=== PATIENT | male | born 1945 | race Caucasian/White ===

== ENCOUNTER 2025-03-01 14:43 | Emergency (ER) | payer MEDICARE, SELFPAY ==
[2025-03-01 14:43] VITALS: BP 144/69; PULSE 69; TEMP 36.5; O2SAT 96; BMI 26.4
--- NOTE | 2025-03-01 15:34 | ED.GENADUL1 ---
Documented by User: Luli Maren 03/01/25 16:09 HPI HPI - General Adult General Chief complaint: Urogenital-Male Stated complaint: OTHER Time Seen by Provider: 03/01/25 14:53 Source: patient Mode of arrival: ambulance History of Present Illness HPI narrative: 79-year-old male was sent to the emergency room by squad from [facility]. Patient had a Pizano catheter removed from report last evening. Patient has been able to urinate but has been passing some clots. There was a standing placed to replace the Pizano catheter if necessary. Staff members called the doctor to have a place and they told him to come to the emergency room if he was peeing blood. Upon arrival to the emergency room patient had a ultrasound the bladder showed about 425 cc. He states he does feel full but he has been able to pee urinate small amounts with small amount of clotting per his history. Related Data Allergies Allergy/AdvReac Type Severity Reaction Status Date / Time No Known Drug Allergies Allergy Verified 03/01/25 14:48 Opioid HPI Opioid Management Most Recent Opioid Data: No Data to Display Review of Systems ROS Narrative All Systems are negative except as noted/marked.All systems reviewed and otherwise negative PFSH PFSH Social History Little interest or pleasure in doing things: not at all Feeling down, depressed, or hopeless: not at all Exam Narrative Exam Narrative: Nurses note and vital signs reviewed and patient is not hypoxic. General: The patient appears well and in no apparent distress. Patient is resting comfortably on cart. Skin: Warm, dry, no pallor noted. There is no rash noted. Head: Normocephalic, atraumatic Eye: Normal conjunctiva, no drainage, EOMI. PERRL Ears, Nose, Mouth, and Throat: oral mucosa is moist. Nares patent. Mouth without vesicles. Ear canals patent. Tm's without Erythema Cardiovascular: Regular Rate and Rhythm Respiratory: Patient is in no distress, no accessory muscle use, lungs are clear to auscultation, no wheezing, rales or rhonchi Back: non-tender, no CVA tenderness bilaterally to percussion. GI: Normal bowel sounds, no tenderness to palpation, no masses appreciated. No rebound, guarding, or rigidity noted. Musculoskeletal: The patient has no evidence of calf tenderness, no pitting edema, symmetrical pulses noted bilaterally Neurological: A&O x4, normal speech Psychiatric: Cooperative Constitutional Vital Signs, click to edit/add: Last Vital Signs Temp 97.7 F 03/01/25 14:43 Pulse 69 03/01/25 14:43 Resp 18 03/01/25 14:43 BP 138/62 03/01/25 18:14 Pulse Ox 96 03/01/25 14:43 O2 Del Method Room Air 03/01/25 14:43 Course Vital Signs Vital signs: Vital Signs Temperature 97.7 F 03/01/25 14:43 Pulse Rate 69 03/01/25 14:43 Respiratory Rate 18 03/01/25 14:43 Blood Pressure 144/69 H 03/01/25 14:43 Pulse Oximetry 96 03/01/25 14:43 Oxygen Delivery Method Room Air 03/01/25 14:43 Temperature 97.7 F 03/01/25 14:43 Pulse Rate 69 03/01/25 14:43 Respiratory Rate 18 03/01/25 14:43 Blood Pressure 138/62 03/01/25 18:14 Pulse Oximetry 96 03/01/25 14:43 Oxygen Delivery Method Room Air 03/01/25 14:43 Medical Decision Making MDM Narrative Medical decision making narrative: 79-year-old male was sent to the emergency room by shreyas from [facility]. Patient had a Pizano catheter removed from report last evening. Patient has been able to urinate but has been passing some clots. There was a standing placed to replace the Pizano catheter if necessary. Staff members called the doctor to have a place and they told him to come to the emergency room if he was peeing blood. Upon arrival to the emergency room patient had a ultrasound the bladder showed about 425 cc. He states he does feel full but he has been able to pee urinate small amounts with small amount of clotting per his history. Emergency room, patient had 420+ cc of urine in his bladder. Pizano catheter was replaced. It has been flushed and clearing. Urine was read reviewed and shows no acute infection. Patient is stable to be discharged back to [facility] with diagnosis of urinary retention. Patient feels good he has no pain. Differential Diagnosis Differential Diagnosis: uti, urinary retention Medical Records Medical records reviewed: Yes I reviewed the patient's medical records Lab Data Lab results reviewed: Yes I reviewed the patient's lab results Labs: Lab Results 03/01/25 Range/Units 15:30 Urine Color Yellow (YELLOW) Urine Clarity Sl cloudy (CLEAR) Urine pH 6.5 (5.0-9.0) Ur Specific [place] 1.020 (1.005-1.025) Urine Protein Negative (NEG/TRACE) mg/dL Urine Glucose (UA) Negative (NEGATIVE) mg/dL Urine Ketones Negative (NEGATIVE) mg/dL Urine Occult Blood Large A (NEGATIVE) Urine Nitrite Negative (NEGATIVE) Urine Bilirubin Negative (NEGATIVE) Urine Urobilinogen 2.0 A (0.2-1.0) EU/dL Ur Leukocyte Esterase Negative (NEGATIVE) Urine RBC 50-75 A (0-2) #/HPF Urine WBC 2-5 A (NONE SEEN) #/HPF Ur Squamous Epith Cells Rare (NONE/RARE) #/LPF Urine Crystals None seen (None Seen) #/HPF Urine Bacteria Trace A (NONE SEEN) #/HPF Urine Casts None seen (NONE SEEN) #/LPF Urine Mucus None seen (NONE SEEN) Ur Culture Indicated? No Discharge Plan Discharge Chief Complaint: Urogenital-Male Clinical Impression: H/O urinary retention, Acute on chronic urinary retention, Hematuria Patient Disposition: Home, Self-Care Time of Disposition Decision: 16:05 Condition: Good Mode of Transportation: EMS Print Language: Nicaraguan Instructions: Urinary Retention in Men (ED) Referrals: GRICEL COPE DO [Primary Care Provider] - 1 week Discharge Date/Time: 03/01/25 19:12 Documented by User: Karlo Gr MD 03/01/25 19:57 HPI HPI - General Adult General Chief complaint: Urogenital-Male Stated complaint: OTHER Time Seen by Provider: 03/01/25 14:53 Related Data Allergies Allergy/AdvReac Type Severity Reaction Status Date / Time No Known Drug Allergies Allergy Verified 03/01/25 14:48 Opioid HPI Opioid Management Most Recent Opioid Data: No Data to Display PFSH PFSH Social History Little interest or pleasure in doing things: not at all Feeling down, depressed, or hopeless: not at all Exam Constitutional Vital Signs, click to edit/add: Last Vital Signs Temp 97.7 F 03/01/25 14:43 Pulse 69 03/01/25 14:43 Resp 18 03/01/25 14:43 BP 138/62 03/01/25 18:14 Pulse Ox 96 03/01/25 14:43 O2 Del Method Room Air 03/01/25 14:43 Course Vital Signs Vital signs: Vital Signs Temperature 97.7 F 03/01/25 14:43 Pulse Rate 69 03/01/25 14:43 Respiratory Rate 18 03/01/25 14:43 Blood Pressure 144/69 H 03/01/25 14:43 Pulse Oximetry 96 03/01/25 14:43 Oxygen Delivery Method Room Air 03/01/25 14:43 Temperature 97.7 F 03/01/25 14:43 Pulse Rate 69 03/01/25 14:43 Respiratory Rate 18 03/01/25 14:43 Blood Pressure 138/62 03/01/25 18:14 Pulse Oximetry 96 03/01/25 14:43 Oxygen Delivery Method Room Air 03/01/25 14:43 Medical Decision Making MDM Narrative Medical decision making narrative: 79-year-old male was sent to the emergency room by shreyas from [facility]. Patient had a Pizano catheter removed from report last evening. Patient has been able to urinate but has been passing some clots. There was a standing placed to replace the Pizano catheter if necessary. Staff members called the doctor to have a place and they told him to come to the emergency room if he was peeing blood. Upon arrival to the emergency room patient had a ultrasound the bladder showed about 425 cc. He states he does feel full but he has been able to pee urinate small amounts with small amount of clotting per his history. Emergency room, patient had 420+ cc of urine in his bladder. Pizano catheter was replaced. It has been flushed and clearing. Urine was read reviewed and shows no acute infection. Patient is stable to be discharged back to [facility] with diagnosis of urinary retention. Patient feels good he has no pain. I, Dr Gr, have reviewed the above progress note and course of action in the ER; agree with the above. I have personally gone over history and physical, and discussed disposition and treatment plan with the PA. Lab Data Labs: Lab Results 03/01/25 Range/Units 15:30 Urine Color Yellow (YELLOW) Urine Clarity Sl cloudy (CLEAR) Urine pH 6.5 (5.0-9.0) Ur Specific [place] 1.020 (1.005-1.025) Urine Protein Negative (NEG/TRACE) mg/dL Urine Glucose (UA) Negative (NEGATIVE) mg/dL Urine Ketones Negative (NEGATIVE) mg/dL Urine Occult Blood Large A (NEGATIVE) Urine Nitrite Negative (NEGATIVE) Urine Bilirubin Negative (NEGATIVE) Urine Urobilinogen 2.0 A (0.2-1.0) EU/dL Ur Leukocyte Esterase Negative (NEGATIVE) Urine RBC 50-75 A (0-2) #/HPF Urine WBC 2-5 A (NONE SEEN) #/HPF Ur Squamous Epith Cells Rare (NONE/RARE) #/LPF Urine Crystals None seen (None Seen) #/HPF Urine Bacteria Trace A (NONE SEEN) #/HPF Urine Casts None seen (NONE SEEN) #/LPF Urine Mucus None seen (NONE SEEN) Ur Culture Indicated? No Discharge Plan Discharge Chief Complaint: Urogenital-Male Clinical Impression: H/O urinary retention, Acute on chronic urinary retention, Hematuria Patient Disposition: Home, Self-Care Time of Disposition Decision: 16:05 Condition: Good Mode of Transportation: EMS Print Language: Nicaraguan Instructions: Urinary Retention in Men (ED) Referrals: GRICEL COPE DO [Primary Care Provider] - 1 week Discharge Date/Time: 03/01/25 19:12
[2025-03-01 15:59] LABS: Bilirubin Urine NEGATIVE (NEGATIVE); Blood Urine LARGE (NEGATIVE); Clarity Urine SL CLOUDY (CLEAR); Color Urine YELLOW (YELLOW); Glucose Urine UA NEGATIVE (NEGATIVE); Ketones Urine NEGATIVE (NEGATIVE); Leukocyte Esterase Urine NEGATIVE (NEGATIVE); Nitrite Urine NEGATIVE (NEGATIVE); Protein Urine NEGATIVE (NEG/TRACE); pH Urine 6.5 (5.0-9.0)
[2025-03-01 16:05] VITALS: BP 145/63
[2025-03-01 16:12] LABS: Bacteria Urine TRACE #/HPF (NONE SEEN); RBC Urine 50-75 #/HPF (0-2)
[2025-03-01 16:13] LABS: Cast Seen? NONE SEEN #/LPF (NONE SEEN); Crystals Seen? None Seen #/HPF (None Seen); Mucus Urine NONE SEEN (NONE SEEN); Squamous Epithelial Cell Urine RARE #/LPF (NONE/RARE)
[2025-03-01 16:14] LABS: Urine Culture Indicated NO
[2025-03-01 18:14] VITALS: BP 138/62
== END 2025-03-01 19:12 | disposition home or self-care (01) ==
PROVIDERS: Physician Assistant; Emergency Provider Emergency Medicine; PCP Family Medicine
DX: R33.9 Retention of urine, unspecified (principal); R31.9 Hematuria, unspecified
CPT/HCPCS: 81001; 87086; 99283

== ENCOUNTER 2025-09-11 13:05 | Inpatient (IN) | payer MEDICARE, SELFPAY ==
[2025-09-11 13:08] VITALS: BP 152/76; PULSE 91; TEMP 37.4; O2SAT 93; BMI 27.1
--- NOTE | 2025-09-11 13:13 | XR_ITS ---
The [address] [address] Patient Name: BAILEE TRAORE MRN: [id number] date: 1945 Sex: M Assigned Patient Location: ER Current Patient Location: ED.MAIN Accession/Order Number: [id number] Exam Date: 09/11/2025 13:43 Report Date: 09/11/2025 16:08 At the request of: SUSANNA MCQUEEN MD Procedure: XR hip LT 2V w/ pelvis Single view pelvis and 2 views left hip INDICATION: Fall, left hip pain FINDINGS: There is a mildly comminuted intertrochanteric size subtrochanteric hip fracture with foreshortening and 90 degrees of angulation.. Prior internal fixation right hip with rubi and screw partially visualized. Hsas-ba-rtytzyan degenerative changes both hips and sacral joints. Remainder pelvis intact. No dislocation. XR/XR hip LT 2V w/ pelvis IMPRESSION: Mild comminuted left intertrochanteric versus subtrochanteric hip fracture with angulation. Impression dictated by: Christiano Salinas M.D. 09/11/2025 4:08 PM Dictation Location: [place] [address] Electronically authenticated by: [id number] Y Date: 09/11/2025 16:08
--- NOTE | 2025-09-11 13:13 | ED.FALL1 ---
HPI HPI - Fall General Chief Complaint: Fall Stated Complaint: FALL Time Seen by Provider: 09/11/25 13:13 Source: patient Mode of arrival: ambulance Limitations: no limitations History of Present Illness HPI Narrative: Patient is 80 years old male with history of hypertension hyperlipidemia and history of seizure disorder, by the EMS to the ER after he tripped and fell in the [place]. Patient did not lose consciousness he was awake the whole time but he think he hit his head on the left side when tripped Patient presents to us with a deformity of the left hip with shortened left leg and pain with movement Related Data Home Medications ?Medication ?Instructions ?Recorded ?Confirmed acetaminophen 500 mg tablet 1,000 mg PO Q8H PRN fever or pain 09/11/25 09/11/25 (Tylenol Extra Strength) albuterol sulfate 2.5 mg/3 mL 1.25 mg inhalation QID PRN 09/11/25 09/11/25 (0.083 %) solution for nebulization shortness of breath or wheezing ammonium lactate 12 % lotion 1 applic topical TID PRN dry skin 09/11/25 09/11/25 aspirin 81 mg chewable tablet 81 mg PO DAILY 09/11/25 09/11/25 atorvastatin 80 mg tablet 80 mg PO DAILY 09/11/25 09/11/25 budesonide-formoterol HFA 160 2 inh inhalation Q12H 09/11/25 09/11/25 mcg-4.5 mcg/actuation aerosol inhaler (Symbicort) bupropion HCl 150 mg 24 hr tablet, 150 mg PO DAILY 09/11/25 09/11/25 extended release dextromethorphan-guaifenesin 10 10 ml PO Q6H PRN cough 09/11/25 09/11/25 mg-100 mg/5 mL oral syrup (Antitussive DM) escitalopram oxalate 10 mg tablet 10 mg PO DAILY 09/11/25 09/11/25 fluticasone 232 mcg-salmeterol 14 1 inh inhalation Q12H 09/11/25 09/11/25 mcg/actuation breath activated powdr ipratropium 0.5 mg-albuterol 3 mg 3 ml inhalation Q8H 09/11/25 09/11/25 (2.5 mg base)/3 mL nebulization soln levetiracetam 1,000 mg tablet 1,000 mg PO Q12H 09/11/25 09/11/25 levothyroxine 100 mcg tablet 100 mcg PO DAILY 09/11/25 09/11/25 lisinopril 20 mg tablet 20 mg PO DAILY 09/11/25 09/11/25 metoprolol succinate 50 mg 50 mg PO DAILY 09/11/25 09/11/25 tablet,extended release 24 hr ondansetron 4 mg disintegrating 4 mg translingual Q6H PRN nausea 09/11/25 09/11/25 tablet and vomiting pantoprazole 40 mg tablet,delayed 40 mg PO DAILY 09/11/25 09/11/25 release polyethylene glycol 3350 17 gram 17 g PO DAILY 09/11/25 09/11/25 oral powder packet (Miralax) tamsulosin 0.4 mg capsule 0.4 mg PO Q24H 09/11/25 09/11/25 Allergies Allergy/AdvReac Type Severity Reaction Status Date / Time No Known Drug Allergies Allergy Verified 09/11/25 13:08 Opioid HPI Opioid Management Most Recent Pain and Opioid Data: Last Pain Scale 7 Today, 13:08 Review of Systems ROS Status of ROS 10 or more systems reviewed and unremarkable except as noted in history and below [facility] Medical History (Updated 09/11/25 @ 15:42 by Jennifer Senior MD) Other reduced mobility ?Z74.09 - Other reduced mobility (ICD-10) Edema, unspecified ?R60.9 - Edema, unspecified (ICD-10) Disorder of the skin and subcutaneous tissue, unspecified ?L98.9 - Disorder of the skin and subcutaneous tissue, unspecified (ICD-10) Unspecified convulsions ?R56.9 - Unspecified convulsions (ICD-10) Disorientation, unspecified ?R41.0 - Disorientation, unspecified (ICD-10) Weakness ?R53.1 - Weakness (ICD-10) Retention of urine, unspecified ?R33.9 - Retention of urine, unspecified (ICD-10) Constipation ?K59.00 - Constipation, unspecified (ICD-10) GERD (gastroesophageal reflux disease) ?K21.9 - Gastro-esophageal reflux disease without esophagitis (ICD-10) Dysphagia ?R13.10 - Dysphagia, unspecified (ICD-10) Hypothyroid ?E03.9 - Hypothyroidism, unspecified (ICD-10) Hyperlipidemia ?E78.5 - Hyperlipidemia, unspecified (ICD-10) Unspecified atrial fibrillation ?I48.91 - Unspecified atrial fibrillation (ICD-10) 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 (ICD-10) Other seizures ?G40.89 - Other seizures (ICD-10) 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 ?I66.01 - 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 (ICD-10) Malignant neoplasm of frontal lobe ?C71.1 - Malignant neoplasm of frontal lobe (ICD-10) Encephalitis and encephalomyelitis, unspecified ?G04.90 - Encephalitis and encephalomyelitis, unspecified (ICD-10) Interstitial pulmonary disease, unspecified ?J84.9 - Interstitial pulmonary disease, unspecified (ICD-10) Disorder of brain, unspecified ?G93.9 - Disorder of brain, unspecified (ICD-10) Social History Little interest or pleasure in doing things: not at all Feeling down, depressed, or hopeless: not at all Exam Narrative Exam Narrative: Nurses notes and vital signs reviewed and patient is not hypoxic. Lower extremity: Obvious deformity to the left lower extremity with shortening compared to the right. There is tenderness upon palpation of the left hip and decrease of movement due to pain the patient have no vascular injury detected he had very good anterior tibial pulse General: Well-appearing and in no apparent distress. Skin: Warm, dry, no pallor noted. No rash. Head: Normocephalic, atraumatic. Neck: Supple, non-tender. Cardiovascular: Regular Rate and Rhythm without murmur, gallop or rub. Respiratory: No accessory muscle use or respiratory distress. Lungs are clear to auscultation, no wheezing, rales or rhonchi Chest Wall: no tenderness Back: No midline thoracic or lumbar vertebral tenderness. No CVA tenderness GI: Abdomen is soft, non-distended. Normal bowel sounds. No masses appreciated. No tenderness to palpation. No rebound, guarding, or rigidity noted. Neurological: A&O x4. No cranial nerve dysfunction observed. Constitutional Vital Signs, click to edit/add: Last Vital Signs Temp 99.4 F 09/11/25 13:08 Pulse 93 H 09/11/25 13:14 Resp 14 09/11/25 13:08 BP 152/76 H 09/11/25 13:08 Pulse Ox 93 L 09/11/25 13:08 O2 Del Method Room Air 09/11/25 13:08 Course Vital Signs Vital signs: Vital Signs Temperature 99.4 F 09/11/25 13:08 Pulse Rate 91 H 09/11/25 13:08 Respiratory Rate 14 09/11/25 13:08 Blood Pressure 152/76 H 09/11/25 13:08 Pulse Oximetry 93 L 09/11/25 13:08 Oxygen Delivery Method Room Air 09/11/25 13:08 Temperature 99.4 F 09/11/25 13:08 Pulse Rate 93 H 09/11/25 13:14 Respiratory Rate 14 09/11/25 13:08 Blood Pressure 152/76 H 09/11/25 13:08 Pulse Oximetry 93 L 09/11/25 13:08 Oxygen Delivery Method Room Air 09/11/25 13:08 MDM - Fall MDM Narrative Medical decision making narrative: CBC and chemistry showed no acute pathology CT of the head obtained as well as CT cervical due to the history of fall although there is no obvious signs of trauma But the patient is 80 years old with multiple risk factors X-ray of the left hip and pelvis showed that the patient have an obvious fracture to the femoral head Patient case discussed with , the patient can be admitted to our hospital for medical clearance with plan to do surgery tomorrow morning The patient case discussed with he is agreeable to admit the patient The patient will be planned to be admitted pending the results of the CAT scan of the head and cervical spine CT head as well as CT cervical spine both negative for any acute pathology Lab Data Labs: Lab Results 09/11/25 Range/Units 13:38 WBC 9.6 (4.0-11.0) 10^3/uL RBC 4.28 L (4.70-6.10) 10^6/uL Hgb 12.9 L (14.0-18.0) g/dL Hct 38.1 L (42.0-54.0) % MCV 89.0 (80.0-94.0) fL MCH 30.1 (25.9-34.0) pg MCHC 33.9 (29.9-35.2) g/dL RDW 13.5 (11.0-15.0) % Plt Count 189 (150-450) 10^3/uL MPV 9.0 L (9.5-13.5) fL Neut % (Auto) 80.8 H (43.0-75.0) % Lymph % (Auto) 9.0 L (20.5-60.0) % [place] % (Auto) 7.0 (1.7-12.0) % Eos % (Auto) 2.1 (0.9-7.0) % Baso % (Auto) 0.7 (0.2-2.0) % Neut # (Auto) 7.8 H (1.4-6.5) 10^3/uL Lymph # (Auto) 0.9 L (1.2-3.8) 10^3/uL [place] # (Auto) 0.7 (0.3-0.8) 10^3/uL Eos # (Auto) 0.2 (0.0-0.7) 10^3/uL Baso # (Auto) 0.1 (0.0-0.1) 10^3/uL Abs Immat Gran (auto) 0.04 H (0.00-0.03) 10^3/uL Imm/Tot Granulo (auto) 0.4 (0.0-0.5) % Sodium 132 L (136-145) mmol/L Potassium 4.4 (3.5-5.1) mmol/L Chloride 99 (98-107) mmol/L Carbon Dioxide 25.4 (21.0-32.0) mmol/L Anion Gap 12.0 BUN 14.0 (7.0-18.0) mg/dL Creatinine 0.87 (0.70-1.30) mg/dL Est GFR ( Amer) >60 (>=60 mL/min/1.73m^2) Est GFR (Non-Af Amer) >60 (>=60 mL/min/1.73m^2) BUN/Creatinine Ratio 16.1 Glucose 113 H (74-106) mg/dL Calcium 8.7 (8.5-10.1) mg/dL Total Bilirubin 0.7 (0.2-1.0) mg/dL AST 26 (15-37) U/L ALT 30 (16-63) U/L Alkaline Phosphatase 127 H (46-116) U/L Total Protein 7.7 (6.4-8.2) g/dL Albumin 3.3 L (3.4-5.0) g/dL Globulin 4.4 g/dL Albumin/Globulin Ratio 0.8 Discharge Plan Discharge Chief Complaint: Fall Clinical Impression: Closed fracture of left hip, Fall Patient Disposition: Admitted As Inpatient Time of Disposition Decision: 15:42
[2025-09-11 13:14] VITALS: PULSE 93
--- NOTE | 2025-09-11 13:14 | CT_ITS ---
The [place] [id number] Patient Name: BAILEE TRAORE MRN: [id number] date: 1945 Sex: M Assigned Patient Location: ER Current Patient Location: .MAIN Accession/Order Number: [id number] Exam Date: 09/11/2025 13:43 Report Date: 09/11/2025 16:13 At the request of: SUSANNA MCQUEEN MD Procedure: CT head/brain wo con CT BRAIN WITHOUT CONTRAST: CLINICAL HISTORY: fall COMPARISON: None TECHNIQUE: Contiguous axial unenhanced images were obtained through the brain. This CT exam was performed using one or more following dose reduction techniques: Automated exposure control, adjustment of the mA and/or kV according to patient size, or use of iterative reconstruction technique. FINDINGS: There is no evidence of midline shift, intra or extra-axial fluid collection, hemorrhage or CT evidence of acute large vascular distribution stroke.. Central involutional changes and chronic small ischemic disease. Cavum septum pellucidum variant identified. Otherwise moderate periventricular and subcortical hypoattenuation identified suggest of chronic small vessel ischemic disease. Intracranial vascular calcifications. Visualized intraorbital contents appear unremarkable. Osjz-cy-odogxhlo paranasal sinus mucosal thickening. Mastoids are clear. The surrounding soft tissues are normal. CT/CT head/brain wo con IMPRESSION: NO ACUTE INTRACRANIAL ABNORMALITY. 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 Impression dictated by: Christiano Salinas M.D. 09/11/2025 4:13 PM Dictation Location: [place] [address] Electronically authenticated by: [id number] Y Date: 09/11/2025 16:13
--- NOTE | 2025-09-11 13:14 | CT_ITS ---
The [address] [address] Patient Name: BAILEE TRAORE MRN: [id number] date: 1945 Sex: M Assigned Patient Location: ER Current Patient Location: [facility] Accession/Order Number: [id number] Exam Date: 09/11/2025 13:43 Report Date: 09/11/2025 16:15 At the request of: SUSANNA MCQUEEN MD Procedure: CT cervical spine wo con CT cervical spine wo con 09/11/2025 1:53 PM SIGN AND SYMPTOMS: Fall contusion to left side of head TECHNIQUE: Multi detector CT axial slices of the cervical spine were obtained without IV contrast. Volumetric acquisition sagittal, coronal, and 3-D reconstructions were performed and reviewed. CT was performed with one or more of the following dose reduction techniques: Automated exposure control, adjustment of the mA and/or kV according to patient size, or use of iterative reconstruction technique. COMPARISON: None. FINDINGS: There is preservation of the vertebral body heights. There is moderate disc height loss at C4-C5, C5-C6, and C6-C7 with mild scattered loss at C7-T1. No fractures or dislocations are seen. The alignment of the cervical spine is normal. The craniocervical is within normal limits. Degenerative changes are noted in the lateral axial joint. Facet hypertrophy is present throughout. The prevertebral soft tissues are within normal limits. The paraspinous soft tissues are within normal limits. The lung apices are unremarkable. Atherosclerotic changes are noted in the carotid bifurcations. CT/CT cervical spine wo con IMPRESSION: No fracture or dislocation. Degenerative changes are noted throughout the cervical spine as above. Impression dictated by: Emmanuel Grijalva M.D. 09/11/2025 4:15 PM Dictation Location: [place] [address] Electronically authenticated by: [id number] Y Date: 09/11/2025 16:15
--- OUTSIDE RECORDS SUMMARY | 2025-09-11 13:14 | XMS_ITS | Encounter Summary ---
Author Organization [facility] Address [id number] [place] [address] Care Team Providers Care [employer] Name Role Phone Unavailable Primary Care Provider Unavailabl e Encounter Details Date Type Department Care Team (Late st Contact Info) Description 01/26/2025 Orders Only [facility] [place] [address] External, Scanning Provider Pain (Primary Dx) Social History Tobacco Use Types Packs/Day Years Used Date Smoking Tobacco: Never Assessed Sex and Gender Information Value Date Recorded Sex Assigned at Not on file Legal Sex Male 10:02 AM EST Gender Identity Not on file Sexual Orientation Not on file documented as of this encounter Plan of Treatment Not on file documented as of this encounter Results * CT brain without contrast (01/26/2025 7:45 AM EST) us Scanning Provider External IMG CT ORDERABLES Fin al Result documented in this encounter Visit Diagnoses Diagnosis Pain- Primary Generalized pain documented in this encounter
--- OUTSIDE RECORDS SUMMARY | 2025-09-11 13:14 | XMS_ITS | Clinical Summary ---
Author Organization [facility] [employer] [facility] Sys [facility] Address [id number] [place] [address] Care Team Providers Care Precision Crop Manager Name Role Phone Unavailable Primary Care Provider Unavailabl e Social History Tobacco Use Types Packs/Day Years Used Date Smoking Tobacco: Never Assessed Sex and Gender Information Value Date Recorded Sex Assigned at Not on file Legal Sex Male 10:02 AM EST Gender Identity Not on file Sexual Orientation Not on file Plan of Treatment Health Maintenance Due Date Last Done Comments Depression Screening 1957 Tobacco Screening 1957 DTaP,Tdap and Td Vaccines (1 - Tdap) 1962 Zoster (Shingles) Vaccine (1 of 2) 1993 Fall Risk Screening 2008 Influenza Vaccine 07/29/2025 Medical Devices Not on file
--- OUTSIDE RECORDS SUMMARY | 2025-09-11 13:14 | XMS_ITS | Clinical Summary ---
Author Organization [facility] Address [address] [place], [place] [id number] Care Team Providers Care Boat Camp Operator Name Role Phone Unavailable Primary Care Provider Unavailabl e Allergies No known active allergies Medications No known medications Social History Tobacco Use Types Packs/Day Years Used Date Smoking Tobacco: Never Assessed Sex and Gender Information Value Date Recorded Sex Assigned at Not on file Legal Sex Male 9:51 AM EST Gender Identity Not on file Sexual Orientation Not on file Last Filed Vital Signs Vital Sign Reading Time Taken Comments Blood Pressure 141/84 03/14/2014 9:49 PM EDT Pulse 72 03/14/2014 9:49 PM EDT Temperature 36.6 C (97.9 F) 03/14/2014 9:49 PM EDT Respiratory Rate 20 03/14/2014 9:49 PM EDT Oxygen Saturation 100% 03/14/2014 9:49 PM EDT Inhaled Oxygen Concentration - - Weight 83.5 kg (184 lb) 03/14/2014 9:49 PM EDT Height 182.9 cm (6') 03/14/2014 9:49 PM EDT Body Mass Index 24.95 03/14/2014 9:49 PM EDT Plan of Treatment Health Maintenance Due Date Last Done Comments Anxiety Screening 1961 Depression Screening 1961 DTaP,Tdap,Td Vaccine (1 - Tdap) 1962 Pneumococcal Vaccine: 50+ (1 of 1 - PCV) 1993 Shingrix Vaccine (1 of 2) 1993 Diabetes Screening 03/14/2017 03/14/2014 RSV Vaccine (1 - 1-dose 75+ series) 2018 Advance Directive Discussion 11/28/2024 Covid-19 Vaccine (1 - 2024- season) 2025 Influenza Vaccine (#1) 2025 Procedures Procedure Name Priority Date/Time Associated Diagnosis Comments COMPREHENSIVE METABOLIC PANEL (EU,FV,HL,MIKA,MM,SP) STAT 03/14/2014 11:16 PM EDT from Last 3 Months or Most Recently Relevant to Health Maintenance Results * (ABNORMAL) COMPREHENSIVE METABOLIC PANEL (EU,FV,HL,LK,MIKA,MM,SP) (03/14/2014 11:16 PM EDT) Protein, Total 7.6 6.0 - 8.4 g/dL [facility] Albumin 4.5 3.5 - 5.0 g/dL [facility] Calcium 9.3 8.5 - 10.5 mg/dL [facility] Bilirubin, Total 0.4 0.0 - 1.5 mg/dL [facility] Alkaline Phosphatase 93 40 - 150 U/L [facility] AST 19 7 - 40 U/L [facility] Glucose 87 65 - 100 mg/dL [facility] BUN 14 8 - 25 mg/dL [facility] Creatinine 0.82 0.80 - 1.30 mg/dL [facility] Sodium 137 135 - 146 mmol/L [facility] Potassium 3.4(L) 3.5 - 5.0 mmol/L [facility] Chloride 101 98 - 107 mmol/L [facility] CO2 28 23 - 32 mmol/L [facility] ALT 9 5 - 50 U/L [facility] Glom Filtration Rate (AA) >60 >60 [facility] Glom Filtration Rate (BILLY) >60 >60 . [facility] Blood specimen (specimen) BLOOD SPECIMEN / Unknown 03/14/2014 11:16 PM EDT 03/14/2014 11:23 PM EDT us Antonio Mars MD [facility] Final Result [facility] [address] [place] [address] [facility] [address] [place] [address] [id number] from Last 3 Months or Most Recently Relevant to Health Maintenance
--- OUTSIDE RECORDS SUMMARY | 2025-09-11 13:14 | XMS_ITS | Patient Health Record ---
Author Organization [facility] Address [address] [place] [address] Care Team Providers Care Business Center Attendant Name Role Phone Edel Craig Primary Care Provider [phone] Reason For Referral No Information Immunizations Vaccine Route Administration Date Status Comme nts PFIZER IM Intramuscular 11/11/2021 Administered Plan Of Treatment No Information
--- OUTSIDE RECORDS SUMMARY | 2025-09-11 13:14 | XMS_ITS | Clinical Summary ---
Author Organization [facility] Address [address] [place] [address] Care Team Providers Care Cotton Dispatcher Name Role Phone Araceli Engel MD Primary Care Provider [phone] Allergies No known active allergies Medications aspirin 81 MG EC tablet Take 81 mg by mouth Daily Active atorvastatin (Lipitor) 80 MG tablet Take 80 mg by mouth Daily Active levETIRAcetam (Keppra) 1000 MG tablet Take 1,000 mg by mouth in the morning and 1,000 mg before bedtime. Active levothyroxine (Synthroid, Levoxyl) 50 MCG tablet Take 50 mcg by mouth in the morning. Take before meals. Active lisinopril 20 MG tablet Take 20 mg by mouth Daily Active metoprolol succinate XL (Toprol-XL) 50 MG 24 hr tablet Take 50 mg by mouth Daily Do not crush or chew. Active pantoprazole (ProtoNix) 40 MG EC tablet Take 40 mg by mouth in the morning. Take before meals. Do not crush, chew, or split. Active tamsulosin (Flomax) 0.4 MG 24 hr capsule Take 0.4 mg by mouth Daily Active polyethylene glycol, PEG, 3350 (Miralax) 17 g packet Take 17 g by mouth 1 (one) time Active Encounters Date Type Department Care Team Description 06/17/2025 Telephone [facility] [address] [place] [address] Elena Rosen LPN from Last 3 Months Social History Tobacco Use Types Packs/Day Years Used Date Smoking Tobacco: Never Assessed Sex and Gender Information Value Date Recorded Sex Assigned at Not on file Legal Sex Male 1:03 PM EST Gender Identity Not on file Sexual Orientation Not on file Last Filed Vital Signs Vital Sign Reading Time Taken Comments Blood Pressure 122/68 04/03/2025 10:34 AM EDT Pulse 73 04/03/2025 10:34 AM EDT Temperature - - Respiratory Rate - - Oxygen Saturation 94% 04/03/2025 10:34 AM EDT Inhaled Oxygen Concentration - - Weight 86.8 kg (191 lb 6.4 oz) 04/03/2025 10:34 AM EDT Height - - Body Mass Index - - Plan of Treatment Health Maintenance Due Date Last Done Comments Pneumococcal Vaccine: 65+ Ye ars (2 of 2 - PCV20 or PCV21) 11/06/2016 11/06/2015 Influenza Vaccine (#1) 2025 11/15/2024 Insurance [employer] MEDICARE COM[place]TE [place]ICAID [place] [facility] Care Teams Cotton Dispatcher Relationship Specialty Start Date End Date Araceli Engel MD [address] [place] [address] [place] [address], [place] [address] PCP - General Family Medicine 01/28/25
--- OUTSIDE RECORDS SUMMARY | 2025-09-11 13:16 | XMS_ITS | CCD ---
Author Organization [facility] CliniSyal Care Team Providers Care Wildlife Science Professor Name Role Phone ANAMARIA Jarvis Emergency Provider Maren ([facility])DO Charles Primary Care Provider Maren (Clinic) Lucille KLEIN Primary Care Provider Nikos Lao DO Emergency Provider Bennett Navarro MD Admit Provider Bennett Navarro MD Attending Provider [phone] Maren ([facility]) Lucille KLEIN Primary Care Provider Nikos Lao DO Emergency Provider Bennett Navarro MD Admit Provider Lady Parks DO Other Provider Mariela Solorzano MD Other Provider Omkar Louie MD Other Provider Romy Leon APRN Other Provider Vito Mullins DO Other Provider Oren Lara MD Other Provider [phone] Luly SAENZ, Kofi Mackey Attending Provider Omkar Louie MD Admit Provider Omkar Louie MD Attending Provider Dorita Mazariegos Other Provider Unavailable America PhD, Callum Other Provider Brandon Padron MD Other Provider Khurram Eugene DO M Other Provider Bia DO, Barotlome M Other Provider Brian YANES, Petrona M Other Provider [phone] Bernabe CREATIVE SERVICES COORDINATOR-C, Yesenia Ramey Other Provider Martinez MCKEEN-SPORTS DIRECTOR-C, Shona Angela Other Provider Kirit RN, Telma Other Provider Unavailable Loraine RN, Soraya Other Provider Unavailable Jere RN, Sandy Other Provider Unavailable Huong RN, Ksenia Other Provider Unavailable Max RN, Nivia Other Provider Unavailable Montserrat SAENZ, An Other Provider Mohamud Brown DO Other Provider Guerrero SAENZ, Boyd Other Provider West Adam DO Other Provider Esthela SAENZ, Roberto Other Provider [phone] Elba Sheppard MD Other Provider Bailee Carballo DO Other Provider Kev Urbina MD Other Provider Unavailable Jillian Mendez APRN Other Provider Shantelle Newton MD Other Provider Alberto Jacob MD Other Provider eBllo SAENZ, George Other Provider Unavailable Carli Small MD Other Provider Bailee Boggs DO Other Provider Olya Garcia MD Other Provider Ronan Michel MD Other Provider Иван CREATIVE SERVICES COORDINATOR-C, Luli Albert Other Provider Timothy YANES, Rosy Mackey Other Provider Unavailable Bennett Navarro MD Other Provider Merrill SAENZ, Nilesh Other Provider Gilles Gibbs MD Other Provider Hoda SAENZ, Tatyana Other Provider Unavailable Lizandro Corona MD Other Provider Rashmi Almanzar DO Other Provider JedNate mercado DO Other Provider Priscilla Rock APRN Other Provider John Nolan DO Other Provider Luly SAENZ, Kofi Mackey Other Provider [phone] Theresa Mireles APRN Other Provider Rin Kellogg APRN Other Provider Mary SAENZ, Geo Other Provider Puma Miller MD Other Provider Moravia Salomón KLEIN Other Provider Pernell Modi DO Other Provider Bernie SAENZ, Samuel Bryson Other Provider Dayna Garza MD Other Provider Petrona Murphy APRN Other Provider Yaya SAENZ, Jasiel Other Provider Faustino Payton MD Other Provider Omkar Wagner MD Other Provider Kev Pritchett MD Other Provider Alessio Pickering MD Other Provider Radha Juárez APRN Other Provider Jolie Benítez APRN Other Provider Nicolle RN, Esmer Other Provider Unavailable Mary SAENZ, Geo Other Provider Unavailable Petrona Murphy APRN Other Provider Unavailable Karlo Gr DO Attending Provider NON STAFF Primary Care Provider Unavailmaya Pearce MD, Jayme Cabrera Attending Provider JOVANNI ROGERS Attending Unavailable JOVANNI ROGERS Attending Unavailable JOVANNI ROGERS Attending Unavailable Puma Novak DO Primary Care Provider [phone] Martinez MCKEEN-SPORTS DIRECTOR-C, Shona Angela Attending Provider Jayme Pearce Admitting Kamla Pearce, Jayme Cabrera Attending Puma Esquivel Primary Care Unavailable Omkar Louie Attending Unavailable Omkar Louie Admitting Unavailable Kofi Mauricio Attending Unavailable Bennett Navarro Admitting Unavailab [place] Consulting Unavailable Maren (Clinic), Lucille [facility] UnavailMariela Kitchen Consulting Unavailable Omkar Louie Consulting Unavailable Romy Leon Consulting Unavailable Vito Mullins Jr Consulting UnavailOren Muhammad Consulting Unavaila Omkar Vance Attending Unavailable Maren (Clinic), [facility] UnavailOmkar Ly Admitting Unavailable Sciaraagustin Dorita Consulting Unavailable Callum Cross Consulting Unavailable Lady Parks Consulting Unavailable Brandon Padron Consulting Unavailable Khurram Eugene Consulting Unavailab Bartolome Villegas Consulting Unavailable Petrona Torres Consulting Unavailable Yesenia Kidd Consulting Unavailable Shona Henriquez Consulting Unavailable Telma Beth Consulting Unavailable Soraya Baron Consulting Unavailable Sandy Oquendo Consulting Unavailable Ksenia Borja Consulting Unavailable Nivia Santana Consulting Unavailable An Mariano Consulting Unavailable Mohamud Brown Consulting Unavailable Boyd Masters Consulting Unavailable West Adam Consulting UnavailRoberto Meeks Consulting Unavailable Elba Sheppard Consulting Unavailable Bailee Carballo Consulting Unavailable Kev Urbina Consulting Unavailable Jillian Mendez Consulting UnavailShantelle Bob Consulting Unavailable Alberto Jacob Consulting Unavailable George Monsalve Consulting Unavailable Carli Small Consulting Unavailable Bailee Boggs Consulting Unavailable Olya Garcia Consulting Unavailable Ronan Michel Consulting Unavailable Luli Oates Consulting Unavailable Rosy Aguirre Consulting Unavailable Bennett Navarro Consulting Unavailab Nilesh Kang Consulting Unavailable Gilles Gibbs Unavailable Tatyana Drummond Consulting Unavailable Lizandro Corona Consulting Unavailable Rashmi Almanzar Consulting Unavailable Nate Adkins Consulting Unavailable Priscilla Rock Consulting Unavailable John Nolan Consulting Unavailable Kofi Mauricio Consulting Unavailable Theresa Mireles Consulting Unavailable Rin Kellogg Consulting Unavailable Geo Hernandez Consulting Unavailable Puma Miller Consulting Unavailable Salomón Cox Consulting Unavailable Pernell Modi Consulting Unavailable Samuel Gibbs Consulting Unavailable Dayna Garza Consulting UnaPetrona Prince Consulting Unavailable Jasiel Javier Consulting Unavailable Faustino Payton Consulting Unavailable Omkar Wagner Consulting Unavailable Kev Pritchett Consulting Unavailable Alessio Pickering Consulting Unavailable Radha Juárez Consulting Unavailable Jolie Benítez Consulting UnavailEsmer Marie Consulting Unavailable Karlo Gr Attending Unavailable Karlo Gr Admitting Unavailable Medications Current Medications Medication Drug Class(es) Dates Sig (Normalized) Sig (Original) albuterol 0.833 mg/ml / ipratropium bromide 0.167 mg/ml inhalation solution (1 source) Anticholinergic, beta2-Adrenergic Agonist Start: 08-06-2025 Ipratropium-Albute rol 0.5 mg-3 mg(2.5 mg base)/3 mL solution for nebulization Active ML INHALATION August 06, 2025 12:00am Complies with drug therapy apixaban 5 mg oral tablet (6 sources) Factor Xa Inhibitor Start: 01-28-2025 take 1 tablet by mouth twice daily Apixaban (Eliquis) 5 mg Tablet Active 5 MG PO Twice daily 60 January 28, 2025 1:00am Complies with drug therapy aspirin 81 mg delayed release oral tablet (5 sources) Platelet Aggregation Inhibitor, Nonsteroidal Anti-inflammatory Drug Start: 02-13-2025 take 1 tablet by mouth once daily Aspirin 81 mg Tablet,Delayed Release (Dr/Ec) Active 81 MG PO Daily 0 February 13, 2025 12:00am Complies with drug therapy atorvastatin 80 mg oral tablet (14 sources) HMG-CoA Reductase Inhibitor Start: 01-28-2025 take 1 tablet by mouth once daily in the evening Atorvastatin 80 mg Tablet Active 80 MG PO Every evening 30 January 28, 2025 1:00am Complies with drug therapy Start: 08-29-2021 Atorvastatin A ctive MG TABLET August 29, 2021 4:43pm Start: 08-29-2021 End: 01-30-2025 Atorvastatin 20 mg Tablet Di scontinued MG August 29, 2021 12:00am January 30, 2025 2:33pm 24 hr buPROPion hydrochloride 150 mg extended release oral tablet (2 sources) Aminoketone Start: 08-06-2025 take 1 tablet by mouth once daily Bupropion Hcl 150 mg tablet extended release 24 hr Active 150 MG PO Daily August 06, 2025 10:48am Complies with drug therapy Start: 08-06-2025 End: 08-06-2025 take 1 tablet by mouth every twenty-four hours Bupropion Hcl 150 mg tablet extended release 24 hr Discontinued MG PO August 06, 2025 12:00am August 06, 2025 10:51am escitalopram 10 mg oral tablet (1 source) Serotonin Reuptake Inhibitor Start: 08-06-2025 take 1 tablet by mouth once daily Escitalopram Oxalate (Lexapro) 10 mg tablet Active 10 MG PO Daily August 06, 2025 12:00am Complies with drug therapy 60 actuat fluticasone propionate 0.232 mg/actuat / salmeterol xinafoate 0.014 mg/actuat dry powder inhaler (1 source) Corticosteroid, beta2-Adrenergic Agonist Start: 08-06-2025 Fluticasone Propion-Salmeterol 232-14 mcg/actuation aerosol powdr breath activated Active INHALATION August 06, 2025 12:00am Complies with drug therapy levETIRAcetam 500 mg oral tablet (6 sources) Start: 01-30-2025 take 2 tablets by mouth twice daily Levetiracetam 500 mg Tablet Active 1000 MG PO Twice daily 0 January 30, 2025 1:00am Complies with drug therapy levothyroxine sodium 0.05 mg oral capsule (9 sources) l-Thyroxine Start: 08-06-2025 take 2 capsules by mouth once daily Levothyroxine 50 mcg capsule Active 100 MCG PO Daily at 0630 August 06, 2025 10:49am Complies with drug therapy Start: 08-29-2021 take 1 ug by mouth once daily Levothyroxine Active MCG PO Daily August 29, 2021 4:44pm Start: 08-29-2021 End: 08-06-2025 take 1 capsule by mouth once daily Levothyroxine 50 mcg Capsule Discontinued 50 MCG PO Daily at 629August 29, 2021 12:00am August 06, 2025 10:51am lisinopril 20 mg oral tablet (8 sources) Angiotensin Converting Enzyme Inhibitor Start: 08-29-2021 Lisinopril Active MG TABLET August 29, 2021 4:43pm Start: 08-29-2021 take 1 tablet by luis a th once daily Lisinopril 20 mg Tablet Active 20 MG PO Daily August 29, 2021 12:00am Complies with drug therapy 24 hr metoprolol succinate 50 mg extended release oral tablet (6 sources) beta-Adrenergic Lidna Start: 01-28-2025 take 1 tablet by mouth once daily Metoprolol Succinate 50 mg Tablet Extended Release 24 Hr Active 50 MG PO Daily January 28, 2025 1:00am Complies with drug therapy ondansetron 4 mg disintegrating oral tablet (2 sources) Serotonin-3 Receptor Antagonist Start: 08-06-2025 End: 08-06-2025 take 1 tablet by mouth every six hours as needed Ondansetron 4 mg tablet,disintegra ting Active 4 MG PO Every 6 hours as needed August 06, 2025 10:50am Complies with drug therapy pantoprazole 40 mg delayed release oral tablet (5 sources) Proton Pump Inhibitor Start: 02-13-2025 take 1 tablet by mouth once daily Pantoprazole 40 mg Tablet,Delayed Release (Dr/Ec) Active 40 MG PO Daily after supper 0 February 13, 2025 12:00am Complies with drug therapy Rx Discharge Order Notice (5 sources) Start: 02-13-2025 Rx Discharge Order Notice Active 1 EACH MISCELLANE Once February 13, 2025 12:00am Complies with drug therapy Start: 02-13-2025 Rx Discharge O rder Notice Active 1 EACH MISCELLANE Once February 13, 2025 12:00am Start: 02-13-2025 Rx Discharge O rder Notice Active 1 ea miscellaneous Once February 135 12:00am tamsulosin hydrochloride 0.4 mg oral capsule (1 source) alpha-Adrenergic Linda Start: 08-06-2025 take 1 capsule by mouth once daily Tamsulosin (Flomax) 0.4 mg capsule Active 0.4 MG PO Daily August 06, 2025 12:00am Complies with drug therapy Completed/Discontinued Medications Medication Drug Class(es) Dates Sig (Normalized) Sig (Original) QUEtiapine 25 mg oral tablet (5 sources) Atypical Antipsychotic Start: 02-13-2025 End: 08-06-2025 take 1 tablet by mouth once daily at bedtime as needed Quetiapine 25 mg Tablet Discontinued 25 MG PO Daily at bedtime as needed for Agitation 0 February 13, 2025 12:00am August 06, 2025 10:50am Problems Active Problems Problem Classification Problem Date Documented Da te Episodic/Chronic Acute cerebrovascular disease (20 sources) Cerebrovascular accident; Translations: [Cerebral infarction, unspecified] Onset: 01-26-2025 01-26-2025 Chronic Cancer of brain and nervous system (1 source) Malignant neoplasm of frontal lobe; Translations: [Malignant neoplasm of frontal lobe] Onset: 03-15-2025 Chronic Cardiac dysrhythmias (20 sources) Atrial fibrillation with rapid ventricular response; Translations: [Unspecified atrial fibrillation] Onset: 04-17-2025 01-26-2025 Chronic Coronary atherosclerosis and other heart disease (3 sources) Coronary arteriosclerosis; Translations: [Atherosclerotic heart disease of circle coronary artery without angina pectoris] 04-17-2025 Chronic Coronary atherosclerosis and other heart disease (1 source) Presence of coronary angioplasty implant and graft; Translations: [Percutaneous transluminal coronary angioplasty status] 04-17-2025 Episodic Disorders of lipid metabolism (11 sources) Hyperlipidemia; Translations: [Hyperlipidemia, unspecified] Onset: 01-30-2025 02-07-2025 Chronic Epilepsy; convulsions (18 sources) Focal motor seizure; Translations: [Localization-related (focal) (partial) symptomatic epilepsy and epileptic syndromes with simple partial seizures, not intractable, without status epilepticus] Onset: 01-26-2025 01-27-2025 Chronic Essential hypertension (6 sources) Hypertensive disorder; Translations: [Essential (primary) hypertension] 02-07-2025 Chronic Other gastrointestinal disorders (5 sources) Dysphagia; Translations: [Dysphagia, unspecified] 01-31-2025 Episodic Other hereditary and degenerative nervous system conditions (6 sources) Hemiballism; 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] 01-27-2025 Chronic Other hereditary and degenerative nervous system conditions (10 sources) Other chorea; 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] Onset: 01-26-2025 01-30-2025 Chronic Other nervous system disorders (10 sources) Disorder of brain, unspecified; 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 EHR Cmte Thyroid disorders (10 sources) Hypothyroidism; Translations: [Hypothyroidism, unspecified] Onset: 01-30-2025 02-07-2025 Chronic Unclassified (9 sources) A [facility] screening has identified you as FRAIL or AT RISK FOR FRAILTY. This puts you at a higher risk for infection, illness, falls, and other injuries. Here are four ways to help you reduce your risk of frailty: 1. IDENTIFY EARLY SIGNS OF FRAILTY Discuss contributing factors and concerns with your doctor 2. BE ACTIVE Walking and light strengthening exercises will help reduce weakness 3. EAT WELL Aim for three healthy meals a day that are high in protein 4. THINK POSITIVE Keep your mind active by being sociable and continuing to learn References: Stay Strong: Four Ways to Beat the Frailty Risk [email or web address] grcqg-vet-pzsscpcate/ mrln-mptwzt-owzx-ways -ii-hbos-lto-fra ilty-risk 01-28-2025 Past or Other Problems Problem Classification Problem Date Documented Da te Episodic/Chronic Administrative/social admission (16 sources) Other reduced mobility; Translations: [Impaired mobility and activities of daily living] Onset: 01-26-2025 01-28-2025 Episodic Encephalitis (except that caused by tuberculosis or sexually transmitted disease) (10 sources) Encephalitis; Translations: [Encephalitis and encephalomyelitis , unspecified] Onset: 01-30-2025 01-31-2025 Episodic Epilepsy; convulsions (18 sources) Seizure; Translations: [Unspecified convulsions] Onset: 01-30-2025 01-26-2025 Episodic Other gastrointestinal disorders (5 sources) Dysphagia, unspecified; Translations: [Dysphagia, unspecified] Onset: 01-30-2025 02-15-2025 Episodic Residual codes; unclassified (1 source) Other specified health status; Translations: [Other specified health status] Onset: 01-26-2025 Episodic Results Test Name Value Interpretation Reference Range Facility Ambulatory Visit Summaryon 0 04-18-2025 Ambulatory Visit Summary Ambulatory Visi t Summary BAILEE TRAORE :1945 Visit Date:04/18/2025 Ambulatory Visit Instructions Your Diagnosis Urine retention Your Care Team Attending Physician - JOVANNI ROGERS PA-C Primary Care Physician - LUCILLE ENGEL DO This Is Your Medications List aspirin (aspirin 81 mg Oral EC Tab) atorvastatin (atorvastatin 80 mg Tab) levetiracetam (levetiracetam 1000 mg oral tablet) levothyroxine (levothyroxine 50 mcg (0.05 mg) Tab) lisinopril (lisinopril 20 mg Tab) metoprolol (metoprolol succinate 50 mg ER Tab) pantoprazole (Pantoprazole [address] Tab) quetiapine (quetiapine 25 mg Tab) tamsulosin (Flomax 0.4 mg Cap) Procedures Performed CE - Cataract extraction, Colonoscopy, History of knee surgery. Discharge Vitals Temperature (Oral) 36.9 ???C Heart Rate (Peripheral) 68 Blood Pressure 98/52 Height 183 cm Height 72 in Weight 89.3 kg Weight 196.873 lb BMI 26.67 Medications What How Much When Instructions Unchanged aspirin (aspirin 81 mg Oral EC Tab) By Mouth Every day Unchanged atorvastatin (atorvastatin 80 mg Tab) By Mouth Every day Unchanged levetiracetam (levetiracetam 1000 mg oral tablet) 1 Tablets By Mouth 2 times a day Unchanged levothyroxine (levothyroxine 50 mcg (0.05 mg) Tab) By Mouth Every day Unchanged lisinopril (lisinopril 20 mg Tab) By Mouth Every day Unchanged metoprolol (metoprolol succinate 50 mg ER Tab) By Mouth Every day Unchanged pantoprazole (Pantoprazole [address] Tab) By Mouth Every day Unchanged quetiapine (quetiapine 25 mg Tab) By Mouth 3 times a day Unchanged tamsulosin (Flomax 0.4 mg Cap) 1 Capsules By Mouth Every day Allergies No Known Allergies Problems Ongoing - Any problem that you are currently receiving treatment for. 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 Please share your experience with us by completing your survey. We appreciate your feedback and thank you for choosing us for your care. Normal [facility] Urology Office/Clinic Noteon 04-18-2025 Urology Office/Clinic Note Urology Office/Clinic Note Chief Complaint 2 wk f/u w/ PVR HPI Staff 79 yr old male here for 3 wk f/u w/ PVR due to urinary retention. *Flomax 0.4mg qd Nurse at the [facility] reports that Pt pizano was removed 04/01/25 and PVR later that day was 125ml. PVR's 04/02/25: 73ml 45ml 0ml random scan today - 100ml pt states he does not feel he has to urinate due to going right before he came to appt. Review of Systems PHQ Score Initial Depression Screen Score: 0 SCORE no fever, chills, malaise, myalgia. no rash/lesions. no chest pain, palpitations, or SOB. no abdominal pain, nausea, vomiting. Physical Exam Vitals & Measurements T: 36.9 ???C(Oral) HR: 68(Peripheral) BP: 98/52 HT: 72 in HT: 183 cm WT: 89.3 kg WT: 196.873 lb BMI: 26.67 General: nontoxic, NAD Assessment/Plan -Admitted to [facility] 01/26/25 d/t multifactorial decline in setting of what was initially thought to be an acute stroke but on further eval appears to be non-traumatic brain dysfunction. Broad differential including seizure, autoimmune encephalitis, low grade glioma. Seeing Neurology. Had brain MRI last week. Has f/u in early March for results/next steps. CT chest/abd/pelv neg for primary tumor or mets. -Had Afib w RVR in ER. Started on Metoprolol and Eliquis. Does not appear that he is still on anticoag aside from baby ASA daily. -Had focal seizure and started on Keppra. Dc'd on this. No further seizure activity since then. -Was living at home alone prior. Dc'd to SNF. Goal is not to go home alone, [facility]. Currently working with PT/OT to regain strength/mobility. Family member w him today (niece) says mentation is clear/good and at baseline. 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 Followed in his older brother's footsteps. [1] 1. Urine retention (R33.9: Retention of urine, unspecified) 03/19/25: Pizano placed upon admission, not d/t retention but rather for I&O monitoring as far as I can tell. No Uro consult during admission. Denies baseline BPH sx. Reports fair stream without hesitancy/straining. Mild post-void dribbling. Typically was getting up 1-2x per night. Denying daytime urgency/frequency/inconti nence. Does not recall ever seeing urology previously. Nl renal fx 02/07/25. Pizano removed at [facility] 02/28/25. Went to ER the following afternoon d/t incomplete emptying and hematuria. Was passing small clots. PVR 425ml. Pizano replaced. Did not require CBI. Neg urine cx. Not on alpha linda or 5-LORI. Reports no issues with the Pizano. BMs have returned to normal as well as his appetite. Start Flomax. Attempt second void trial after being on Flomax x 2 weeks. Staff to pull Pizano 04/01. Prompt to void q2-3h while awake. Perform PVR. If >300ml, replace Pizano. Otherwise document volume and continue PVRs until 04/02. Call our office w PVR results on 04/02. TODAY: PVRs were all low after pizano removed a few weeks ago. PVR low today. Pt denies any issues w urination. Denies s/e from Flomax. -Continue Flomax once daily -F/u 1 yr Ordered: 27227 Measure Post Void residual urine and/or bladder capacity by US- non-imaging Body Mass Index (BMI) documented 3008F Current tobacco non-user 1036F Depression Screening Negative 3352F E&M of Est. Patient Low 20-29 Min 74202 Influenza immunization status assessed 1030F Medication list documented in medical record 1159F Most recent diastolic blood pressure <80 mm Hg 3078F Patient screen for fall risk: no falls in last year or 1 fall with no injury in last year 1101F Review of all meds by a prescribing practitioner or clinical pharmacist documented in EHR 1160F Systolic BP <130 mm Hg (Most Recent) 3074F Follow-up With When Contact Information JOVANNI ROGERS PA-C, URL In 1 year [address] 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 Medications aspirin 81 mg Oral EC Tab, Oral, Daily atorvastatin 80 mg Tab, Oral, Daily Flomax 0.4 mg Cap, 0.4 mg= 1 cap(s), Oral, Daily levetiracetam 1000 mg oral tablet, 1000 mg= 1 tab(s), Oral, BID levothyroxine 50 mcg (0.05 mg) Tab, Oral, Daily lisinopril 20 mg Tab, Oral, Daily metoprolol succinate 50 mg ER Tab, Oral, Daily Pantoprazole [address] Tab, Oral, Daily quetiapine 25 mg Tab, Oral, TID Allergies No Known (more content not included)... Normal [facility] Comment on above: Result Comment: Elec tronically Signed By: JOVANNI ROGERS PA-C\.br\Date and Time Signed: 04/18/25 13:25 EDT [facility] ECG *CARDIOLOGY ONLY*on 04-17-2025 [facility] ECG *CARDIOLOGY ONLY* [facility] [place] [address] [place] [address] Electrocardiograph Report Signed Patient: Bailee Traore MR#: [id number] : 1945 Acct:[id number] Age/Sex: 79 / M ADM Date: 04/17/25 Loc: EKGCARD Room: Type: [facility] Attending Dr: Jayme Pearce MD Ordering Provider: Jayme Pearce MD Date of Service: 04/17/25 ECG/FPG ECG *CARDIOLOGY ONLY*: I48.91 - Unspecified atrial fibrillation Copies to: Test Reason : Blood Pressure : */* mmHG Vent. Rate : 69 BPM Atrial Rate : 69 BPM P-R Int : 156 ms QRS Dur : 92 ms QT Int : 442 ms P-R-T Axes : 52 64 35 degrees QTcB Int : 473 ms Normal sinus rhythm Normal ECG When compared with ECG of 26-Jan-2025 08:04, premature atrial complexes are no longer present T wave amplitude has increased in Lateral leads QT has shortened Confirmed by Jayme Pearce ([id number]) on 04/17/2025 2:56:32 PM Referred By: Electronically Signed By: Jayme Pearce Transcribed By: MUS Signed By Jayme Pearce MD 04/17/25 1456 Normal [facility] Ambulatory Visit Summaryon 0 03-19-2025 Ambulatory Visit Summary Ambulatory Visi t Summary BAILEE TRAORE :1945 Visit Date:03/19/2025 Ambulatory Visit Instructions Your Care Team Attending Physician - JOVANNI ROGERS PA-C Primary Care Physician - LUCILLE ENGEL DO This Is Your Medications List aspirin (aspirin 81 mg Oral EC Tab) atorvastatin (atorvastatin 80 mg Tab) levetiracetam (levetiracetam 1000 mg oral tablet) levothyroxine (levothyroxine 50 mcg (0.05 mg) Tab) lisinopril (lisinopril 20 mg Tab) metoprolol (metoprolol succinate 50 mg ER Tab) pantoprazole (Pantoprazole [address] Tab) quetiapine (quetiapine 25 mg Tab) Procedures Performed CE - Cataract extraction, Colonoscopy, History of knee surgery. Discharge Vitals Temperature (Temporal Artery) 37 ???C Heart Rate (Peripheral) 65 Respiratory Rate 16 Blood Pressure 104/69 Height 183 cm Height 72 in Weight 85 kg Weight 187.393 lb BMI 25.38 Medications What How Much When Instructions Unchanged aspirin (aspirin 81 mg Oral EC Tab) By Mouth Every day Unchanged atorvastatin (atorvastatin 80 mg Tab) By Mouth Every day Unchanged levetiracetam (levetiracetam 1000 mg oral tablet) 1 Tablets By Mouth 2 times a day Unchanged levothyroxine (levothyroxine 50 mcg (0.05 mg) Tab) By Mouth Every day Unchanged lisinopril (lisinopril 20 mg Tab) By Mouth Every day Unchanged metoprolol (metoprolol succinate 50 mg ER Tab) By Mouth Every day Unchanged pantoprazole (Pantoprazole [address] Tab) By Mouth Every day Unchanged quetiapine (quetiapine 25 mg Tab) By Mouth 3 times a day Allergies No Known Allergies Problems Ongoing - Any problem that you are currently receiving treatment for. 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 Please share your experience with us by completing your survey. We appreciate your feedback and thank you for choosing us for your care. Normal [facility] Urology Office/Clinic Noteon 03-19-2025 Urology Office/Clinic Note Urology Office/Clinic Note Chief Complaint urine retention HPI Staff 79 year old male new patient here for urinary retention. 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 Was inpatient 01/26/25- 02/15/25 Pt did have catheter removed 02/28/25 at the [facility] and then was noticed having blood clots in his urine. Pt was send to [facility] ED the next day due to gross hematuria and a bladder scan showed 425cc. Pt had complaints at that time of only being able to void in small amounts. There was a standing order to replace the catheter if necessary so they did. Pt states he does have a hx of kidney stones also. CMP 02/07/25- BUN: 15, Creatinine: 0.79, eGFR: >60.0 Urine cx 03/01/25- negative Review of Systems PHQ Score Initial Depression Screen Score: 0 SCORE no fever, chills, malaise, myalgia. Physical Exam Vitals & Measurements T: 37 ???C(Temporal Artery) HR: 65(Peripheral) RR: 16 BP: 104/69 HT: 72 in HT: 183 cm WT: 187.393 lb WT: 85 kg BMI: 25.38 General: nontoxic, NAD Mouth: moist mucosa Lungs: normal respiratory effort Cardio: regular rate, good distal perfusion Abdomen: nondistended Neurologic: Grossly normal Assessment/Plan -Admitted to [facility] 01/26/25 d/t multifactorial decline in setting of what was initially thought to be an acute stroke but on further eval appears to be non-traumatic brain dysfunction. Broad differential including seizure, autoimmune encephalitis, low grade glioma. Seeing Neurology. Had brain MRI last week. Has f/u in early March for results/next steps. CT chest/abd/pelv neg for primary tumor or mets. -Had Afib w RVR in ER. Started on Metoprolol and Eliquis. Does not appear that he is still on anticoag aside from baby ASA daily. -Had focal seizure and started on Keppra. Dc'd on this. No further seizure activity since then. -Was living at home alone prior. Dc'd to SNF. Goal is not to go home alone, goal is perhaps independent living at [place] or assisted living somewhere. Currently working with PT/OT to regain strength/mobility. Family member w him today (niece) says mentation is clear/good and at baseline. 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 Followed in his older brother's footsteps. 1. Urine retention (R33.9: Retention of urine, unspecified) Pizano placed upon admission, not d/t retention but rather for I&O monitoring as far as I can tell. No Uro consult during admission. Denies baseline BPH sx. Reports fair stream without hesitancy/straining. Mild post-void dribbling. Typically was getting up 1-2x per night. Denying daytime urgency/frequency/inconti nence. Does not recall ever seeing urology previously. Nl renal fx 02/07/25. Pizano removed at [place] 02/28/25. Went to ER the following afternoon d/t incomplete emptying and hematuria. Was passing small clots. PVR 425ml. Pizano replaced. Did not require CBI. Neg urine cx. Not on alpha linda or 5-LORI. Reports no issues with the Pizano. BMs have returned to normal as well as his appetite. -Start Flomax. Warned about possible orthostatic hypotension/dizziness. Pt to alert staff if this happens and will dc med. -Attempt second void trial after being on Flomax x 2 weeks (this will be right around when his current pizano will be due for change). Staff to pull Pizano 04/01. Prompt to void q2-3h while awake. Perform PVR. If >300ml, replace Pizano. Otherwise document volume and continue PVRs until 04/02. Call our office w PVR results on 04/02. -If passes void trial, can f/u in 2-3 mos. If fails void trial, will need Cysto +/- Uros. Ordered: E&M of New Patient Moderate 45-59 Min [id number] Follow-up With When Contact Information KEN CONRAD, JOVANNI Angela, URL [address] [facility] 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 Medications aspirin 81 mg Oral EC Tab, Oral, Daily atorvastatin 80 mg Tab, Oral, Daily levetiracetam 1000 mg oral tablet, 1000 mg= 1 tab(s), Oral, BID levothyroxine 50 mcg (0.05 mg) Tab, Oral, Daily lisinopril 20 mg Tab, Oral, Daily metoprolol succinate 50 mg ER Tab, Oral, Daily Pantoprazole [address] Tab, Oral, Daily quetiapine 25 mg Tab, Oral, TID Allergies No Known Allergies Social History Tobacco Never (less than 100 in lifetime) Tobacco Use:. Never Smokeless Tobacco Use:. Household t (more content not included)... Normal [facility] Comment on above: Result Comment: Elec tronically Signed By: JOVANNI ROGERS PA-C\Date and Time Signed: 03/19/25 11:56 EDT MR head/brain wo/w conon MR head/brain wo/w con [facility] [address] MRI Report Signed Patient: Bailee Traore MR#: [id number] : 1945 Acct:[id number] Age/Sex: 79 / M ADM Date: 03/15/25 Loc: MR Room: Type: [facility] Attending Dr: Omkar Louie MD Copies to: Omkar Louie MD Ordering Provider: Omkar Louie MD Date of Service: 03/15/25 MR/MR head/brain wo/w con: f/u lesion left frontal glioma MRI BRAIN WITHOUT AND WITH INTRAVENOUS CONTRAST CLINICAL DATA: Abnormal MRI, follow-up COMPARISON: 01/28/2025 Multiecho, multiplanar imaging of the brain was performed before and after intravenous administration of 18 mL of ProHance. Findings: No restricted diffusion. Generalized involutional change. No shift of midline structures. Moderate chronic small ischemic disease. Major intracranial intravascular flow voids are preserved. Minimal abnormal GRE signal right lateral temporal lobe. No abnormal enhancement. Mild sinus disease MR/MR head/brain wo/w con IMPRESSION: Chronic small ischemic disease and Central involutional change. Negative acute intracranial process by MRI. The signal abnormalities within the right temporal lobe and the left parasagittal frontal lobe have resolved. Impression dictated by: Christiano Salinas M.D.03/15/2025 9:53 PM Dictation Location: [place] [address] Transcribed By: [facility] 03/15/252152 Dictated By: Christiano Salinas MD 03/15/252140 Signed By: 03/15/252152 Normal [facility] Magnetic resonance imaging r eportOrdered By: Christiano Salinas on 03-15-2025 Study report [facility] [address] [place] [address] [place] [id number] MRI Report Signed Patient: Bailee Traore MR#: [id number] : 1945 Acct:[id number] Age/Sex: 79 / M ADM Date: 5 Loc: MR Room: Type: [facility] Attending Dr: Omkar Louie MD Copies to: Omkar Louie MD~ Ordering Provider: Omkar Louie MD Date of Service: 03/15/25 MR/MR head/brain wo/w con: f/u lesion left frontal glioma MRI BRAIN WITHOUT AND WITH INTRAVENOUS CONTRAST CLINICAL DATA: Abnormal MRI, follow-up COMPARISON: 01/28/2025 Multiecho, multiplanar imaging of the brain was performed before and after intravenous administration of 18 mL of ProHance. Findings: No restricted diffusion. Generalized involutional change. No shift of midline structures. Moderate chronic small ischemic disease. Major intracranial intravascular flow voids are preserved. Minimal abnormal GRE signalright lateral temporal lobe. No abnormal enhancement. Mild sinus disease MR/MR head/brain wo/w con IMPRESSION: Chronic small ischemic disease and Central involutional change. Negative acute intracranial process by MRI. The signal abnormalities within theright temporal lobe and the left parasagittal frontal lobe have resolved. Impression dictated by: Christiano Salinas M.D.03/15/2025 9:53 PM Dictation Location: [place] [address] Transcribed By: [facility] 03/15/252152 Dictated By: Christiano Salinas MD 03/15/252140 Signed By: 03/15/252152 [facility] Work Phone: Urine Cultureon 03-01-2025 Bacteria identified Cx Nom (U) No Growth 2 Days PERFORMED BY: [address] [address] PATHOLOGIST ANIMAL C[employer] SERVICE WORKER ANURADHA GRANADOS M.D. Normal [facility] Comment on above: Performed By: #### P T, PTT, CBC, TSH3 wRFLX, BMP, CK, T4F, HS TROP #### [address] Urine cultureOrdered By: Charles Gr on 03-01-2025 Bacteria identified Cx Nom (U) Urine culture [facility] Basic Metabolic Panelon 01-26 Anion gap [Moles/Vol] 8.1 mmol/L Normal 6.0-15.0 [facility] Comment on above: Performed By: #### C BC #### [address] Calcium [Mass/Vol] 8.3 mg/dL Low 8.6-10.3 [facility] Comment on above: Performed By: #### C BC #### [address] Chloride [Moles/Vol] 108 mmol/L High 98-107 [facility] Comment on above: Performed By: #### C BC #### [address] CO2 [Moles/Vol] 27.2 mmol/L Normal 21.0-31.0 [facility] Comment on above: Performed By: #### C BC #### [address] Creatinine [Mass/Vol] 0.79 mg/dL Normal 0.70-1.30 [facility] Comment on above: Performed By: #### C BC #### [address] Creatinine Clr Calc Pharmacy 79.49 Normal [facility] Comment on above: Result Comment: PERF ORMED BY: [place] [address] PATHOLOGIST ANIMAL CARE SERVICE WORKER ANURADHA GRANADOS M.D. Performed By: #### C BC #### [address] GFR/1.73 sq M.predicted MDRD (S/P/Bld) [Vol rate/Area] mL/min/{1.73_m2} Normal [facility] Comment on above: Performed By: #### C BC #### [address] Glucose [Mass/Vol] 86 mg/dL Normal 70-100 [facility] Comment on above: Result Comment: [place] Glucose Reference Range is dependent on time and content of last meal. Glucose of more than 200 mg/dL in a nonstressed, ambulatory subject supports the diagnosis of Diabetes Mellitus. ADA recommended reference range Performed By: #### C BC #### [address] Potassium [Moles/Vol] 4.3 mmol/L Normal 3.5-5.1 [facility] Comment on above: Performed By: #### C BC #### [address] Sodium [Moles/Vol] 139 mmol/L Normal 136-145 [facility] Comment on above: Performed By: #### C BC #### [address] Urea nitrogen [Mass/Vol] 15 mg/dL Normal 7-25 [facility] Comment on above: Performed By: #### C BC #### [address] Basophils Auto (Bld) [#/Vol] Ordered By: Romy Leon on 02-07-2025 Basophils (Bld) [#/Vol] Automated basophil count 0.0-0.2 [facility] Basophils/100 WBC Auto (Bld) Ordered By: Romy Leon on 02-07-2025 Basophils/100 WBC (Bld) Automated basophil % . [facility] Calcium [Mass/volume] in Ser um or PlasmaOrdered By: Romy Leon on 02-07-2025 Calcium [Mass/Vol] Calcium [Mass/volume ] in Serum or Plasma Low 8.6-10.3 [facility] Carbon dioxide, total [Moles /volume] in Serum or PlasmaOrdered By: Romy Leon on 02-07-2025 CO2 [Moles/Vol] Carbon dioxide, tota l [Moles/volume] in Serum or Plasma 21.0-31.0 [facility] Chloride [Moles/volume] in S danielle or PlasmaOrdered By: Romy Leon on 02-07-2025 Chloride [Moles/Vol] Chloride [Moles/vol ume] in Serum or Plasma High 98-107 [facility] Complete Blood Count Auto Di ffon 02-07-2025 Basophils (Bld) [#/Vol] 0.0 10*3/uL Normal 0.0-0.2 [facility] Comment on above: Result Comment: PERF ORMED BY: [place] [address] PATHOLOGIST ANIMAL CARE SERVICE WORKER ANURADHA GRANADOS M.D. Performed By: #### C BC #### [address] Basophils/100 WBC (Bld) 0.4 % Normal . [facility] Comment on above: Performed By: #### C BC #### [address] Eosinophils (Bld) [#/Vol] 0.3 10*3/uL Normal 0.0-0.45 [facility] Comment on above: Performed By: #### C BC #### [address] Eosinophils/100 WBC (Bld) 5.1 % Normal . [facility] Comment on above: Performed By: #### C BC #### [address] Erythrocyte distribution width (RBC) [Ratio] 13.9 % Normal 12.0-14.8 [facility] Comment on above: Performed By: #### C BC #### [address] Hematocrit (Bld) [Volume fraction] 37.3 % Low 38.8-50.0 [facility] Comment on above: Performed By: #### C BC #### [address] Hemoglobin (Bld) [Mass/Vol] 12.7 g/dL Low 13.0-17.0 [facility] Comment on above: Performed By: #### C BC #### [address] Lymphocytes (Bld) [#/Vol] 2.8 10*3/uL Normal 1.00-4.8 [facility] Comment on above: Performed By: #### C BC #### [address] Lymphocytes/100 WBC (Bld) 41.8 % Normal . [facility] Comment on above: Performed By: #### C BC #### [address] MCH (RBC) [Entitic mass] 29.2 pg Normal 27.5-35.2 [facility] Comment on above: Performed By: #### C BC #### [address] MCV (RBC) [Entitic vol] 86.0 fL Normal 83.5-101 T [facility] Comment on above: Performed By: #### C BC #### [address] Mean Corpuscular HGB Conc 33.9 g/dL Normal 32.5-35.6 [facility] Comment on above: Performed By: #### C BC #### [address] Monocytes (Bld) [#/Vol] 0.7 10*3/uL Normal 0.0-0.8 [facility] Comment on above: Performed By: #### C BC #### [place] [address] [place] Monocytes/100 WBC (Bld) 10.8 % Normal . T [facility] Comment on above: Performed By: #### C BC #### [address] Neutrophils (Bld) [#/Vol] 2.8 10*3/uL Normal 1.8-7.7 [facility] Comment on above: Performed By: #### C BC #### [address] Neutrophils/100 WBC (Bld) 41.9 % Normal . [facility] Comment on above: Performed By: #### C BC #### [address] NRBC% 0.2 /100{WBC} Normal 0-0.5 [facility] Comment on above: Performed By: #### C BC #### [address] Platelet mean volume (Bld) [Entitic vol] 9.0 fL Normal 6.6-10.1 [facility] Comment on above: Performed By: #### C BC #### [address] Platelets (Bld) [#/Vol] 164 10*3/uL Normal 150-450 [facility] Comment on above: Performed By: #### C BC #### [address] RBC (Bld) [#/Vol] 4.33 10*6/uL Normal 3.90-5.60 [facility] Comment on above: Performed By: #### C BC #### [address] WBC (Bld) [#/Vol] 6.7 10*3/uL Normal 4.1-10.5 [facility] Comment on above: Performed By: #### C BC #### [address] Creatinine [Mass/volume] in Serum or PlasmaOrdered By: Romy Leon on 02-07-2025 Creatinine [Mass/Vol] Creatinine [Mass/v olume] in Serum or Plasma 0.70-1.30 [facility] Eosinophils Auto (Bld) [#/Vo l]Ordered By: Romy Leon on 02-07-2025 Eosinophils (Bld) [#/Vol] Automated eosi nophil count 0.0-0.45 [facility] Eosinophils/100 WBC Auto (Bl d)Ordered By: Romy Leon on 02-07-2025 Eosinophils/100 WBC (Bld) Automated eosinophil % . [facility] Erythrocyte distribution wid th Auto (RBC) [Ratio]Ordered By: Romy Leon on 02-07-2025 Erythrocyte distribution width (RBC) [Ratio] Erythrocyte distribution width [Ratio] by Automated count 12.0-14.8 [facility] Glucose [Mass/volume] in Ser um or PlasmaOrdered By: Romy Leon on 02-07-2025 Glucose [Mass/Vol] Glucose [Mass/volume ] in Serum or Plasma 70-100 [facility] Comment on above: ADA recommended refe rence rangeRandom Glucose Reference Range is dependent on time and content of last meal. Glucose of more than 200 mg/dL in a nonstressed, ambulatory subject supports the diagnosis of Diabetes Mellitus. Hematocrit Auto (Bld) [Volum e fraction]Ordered By: Romy Leon on 02-07-2025 Hematocrit (Bld) [Volume fraction] Hematocrit [Volume Fraction] of Blood by Automated count Low 38.8-50.0 [facility] Hemoglobin [Mass/volume] in BloodOrdered By: Romy Leon on 02-07-2025 Hemoglobin (Bld) [Mass/Vol] Hemoglobin [Mass/volume] in Blood Low 13.0-17.0 [facility] Leukocytes [#/volume] correc dexter for nucleated erythrocytes in Blood by Automated counOrdered By: Romy Leon on 02-07-2025 WBC corrected for nucl RBC Auto (Bld) [#/Vol] Leukocytes [#/volume] corrected for nucleated erythrocytes in Blood by Automated coun 4.1-10.5 [facility] Lymphocytes Auto (Bld) [#/Vo l]Ordered By: Romy Leon on 02-07-2025 Lymphocytes (Bld) [#/Vol] Lymphocytes [# /volume] in Blood by Automated count 1.00-4.8 [facility] Lymphocytes/100 WBC Auto (Bl d)Ordered By: Romy Leon on 02-07-2025 Lymphocytes/100 WBC (Bld) Lymphocytes/10 0 leukocytes in Blood by Automated count . [facility] MCH Auto (RBC) [Entitic mass ]Ordered By: Romy Leon on 02-07-2025 MCH (RBC) [Entitic mass] MCH [Entitic ma ss] by Automated count 27.5-35.2 [facility] MCHC Auto (RBC) [Mass/Vol]Or dered By: Romy Leon on 02-07-2025 MCHC (RBC) [Mass/Vol] MCHC [Mass/volume] by Automated count 32.5-35.6 [facility] MCV Auto (RBC) [Entitic vol] Ordered By: Romy Leon on 02-07-2025 MCV (RBC) [Entitic vol] MCV [Entitic vol ume] by Automated count 83.5-101 [facility] Monocytes Auto (Bld) [#/Vol] Ordered By: Romy Leon on 02-07-2025 Monocytes (Bld) [#/Vol] Automated blood monocyte count 0.0-0.8 [facility] Monocytes/100 WBC Auto (Bld) Ordered By: Romy Leon on 02-07-2025 Monocytes/100 WBC (Bld) Automated monocyte % . [facility] Neutrophils Auto (Bld) [#/Vo l]Ordered By: Romy Leon on 02-07-2025 Neutrophils (Bld) [#/Vol] Neutrophils [# /volume] in Blood by Automated count 1.8-7.7 [facility] Neutrophils/100 WBC Auto (Bl d)Ordered By: Romy Leon on 02-07-2025 Neutrophils/100 WBC (Bld) Automated neutrophil % . [facility] No Panel InformationOrdered By: Romy Leon on 02-07-2025 Estimated GFR (CKD-EPI) > 60.0 mL/Min [facility] Creatinine Clearance (Chem 79.49 [facility] Nucleated erythrocytes [Pres ence] in Blood by Automated countOrdered By: Romy Leon on 02-07-2025 Nucleated RBC Auto Ql (Bld) Nucleated erythrocytes [Presence] in Blood by Automated count 0-0.5 [facility] Platelet mean volume Auto (B ld) [Entitic vol]Ordered By: Romy Leon on 02-07-2025 Platelet mean volume (Bld) [Entitic vol] Platelet mean volume [Entitic volume] in Blood by Automated count 6.6-10.1 [facility] Platelets Auto (Bld) [#/Vol] Ordered By: Romy Leon on 02-07-2025 Platelets (Bld) [#/Vol] Platelets [#/vol ume] in Blood by Automated count 150-450 [facility] Potassium [Moles/volume] in Serum or PlasmaOrdered By: Romy Leon on 02-07-2025 Potassium [Moles/Vol] Potassium [Moles/v olume] in Serum or Plasma 3.5-5.1 [facility] RBC Auto (Bld) [#/Vol]Ordere d By: Romy Leon on 02-07-2025 RBC (Bld) [#/Vol] Erythrocytes [#/volu me] in Blood by Automated count 3.90-5.60 [facility] Serum or plasma anion gap de terminationOrdered By: Romy Leon on 02-07-2025 Anion gap [Moles/Vol] Serum or plasma an ion gap determination 6.0-15.0 [facility] Sodium [Moles/volume] in Ser um or PlasmaOrdered By: Romy Leon on 02-07-2025 Sodium [Moles/Vol] Sodium [Moles/volume ] in Serum or Plasma 136-145 [facility] Urea nitrogen [Mass/volume] in Serum or PlasmaOrdered By: oRmy Leon on 02-07-2025 Urea nitrogen [Mass/Vol] Urea nitrogen [Mass/volume] in Serum or Plasma 7-25 [facility] WBC Auto (Bld) [#/Vol]Ordere d By: Romy Leon on 02-07-2025 WBC (Bld) [#/Vol] Leukocytes [#/volume ] in Blood by Automated count 4.1-10.5 [facility] Pathology study report docum entOrdered By: Rene Cavazos on 02-05-2025 Pathology study [facility] Other Phone: Aerobic Cultureon 02-03-2025 Aerobic Culture Comment Tube 2 No Growth 2 Days Comment Tube 2 No Anaerobes Isolated 3 Days Comment Tube 2 Gram Stain Result No White Blood Cells Seen No Bacteria Seen PERFORMED BY: [place] [address] PATHOLOGIST ANIMAL CARE SERVICE WORKER ANURADHA GRANADOS M.D. Normal [facility] Comment on above: Performed By: #### P T, PTT, CBC, TSH3 wRFLX, BMP, CK, T4F, HS TROP #### [facility] [address] [place] [address] Aerobic cultureOrdered By: Yomi Amezquita on 02-03-2025 Bacteria identified Aer cx Nom (Unsp spec) Aerobic culture [facility] Anaerobic cultureOrdered By: Bartolome Amezquita on 02-03-2025 Bacteria identified Anaer cx Nom (Unsp spec) Anaerobic culture [facility] Basophil count CSFOrdered By : Bartolome Amezquita on 02-03-2025 CSF Basophils 0 [facility] Comment on above: The reference interv al and other method performance specifications have not been established for this body fluid. The test result must be integrated into the clinical context for interpretation. Cell Count Differential,CSFo n 02-03-2025 Appearance, CSF Clear Normal Clear [facility] Comment on above: Order Comment: Comme nt Tube 1 Performed By: #### P T, PTT, CBC, TSH3 wRFLX, BMP, CK, T4F, HS TROP #### [facility] [address] [place] [address] Order Comment: Comme nt Tube 4 Color, CSF Colorless Normal Colorless [facility] Comment on above: Order Comment: Comme nt Tube 1 Performed By: #### P T, PTT, CBC, TSH3 wRFLX, BMP, CK, T4F, HS TROP #### [facility] [address] [place] [address] Order Comment: Comme nt Tube 4 CSF Supernatant Color Colorless Normal Colorless [facility] Comment on above: Order Comment: Comme nt Tube 1 Performed By: #### P T, PTT, CBC, TSH3 wRFLX, BMP, CK, T4F, HS TROP #### [facility] [address] [place] [address] Order Comment: Comme nt Tube 4 CSF Volume, Total 11.0 mL Normal [facility] Comment on above: Order Comment: Comme nt Tube 1 Performed By: #### P T, PTT, CBC, TSH3 wRFLX, BMP, CK, T4F, HS TROP #### [address] Order Comment: Comme nt Tube 4 Eosinophil, CSF 0 Normal [facility] Comment on above: Order Comment: Comme nt Tube 1 Result Comment: The reference interval and other method performance specifications have not been established for this body fluid. The test result must be integrated into the clinical context for interpretation. Performed By: #### P T, PTT, CBC, TSH3 wRFLX, BMP, CK, T4F, HS TROP #### [address] Order Comment: Comme nt Tube 4 Lymphocytes, CSF 3 Normal [facility] Comment on above: Order Comment: Comme nt Tube 1 Result Comment: The reference interval and other method performance specifications have not been established for this body fluid. The test result must be integrated into the clinical context for interpretation. Performed By: #### P T, PTT, CBC, TSH3 wRFLX, BMP, CK, T4F, HS TROP #### [facility] [address] [place] [address] Monocytes, CSF 0 Normal [facility] Comment on above: Order Comment: Comme nt Tube 1 Result Comment: The reference interval and other method performance specifications have not been established for this body fluid. The test result must be integrated into the clinical context for interpretation. Performed By: #### P T, PTT, CBC, TSH3 wRFLX, BMP, CK, T4F, HS TROP #### [facility] [address] [place] [address] Order Comment: Comme nt Tube 4 Neutrophils, CSF 0 Normal [facility] Comment on above: Order Comment: Comme nt Tube 1 Result Comment: The reference interval and other method performance specifications have not been established for this body fluid. The test result must be integrated into the clinical context for interpretation. Performed By: #### P T, PTT, CBC, TSH3 wRFLX, BMP, CK, T4F, HS TROP #### [address] Order Comment: Comme nt Tube 4 RBC, CSF 3 /uL Normal [facility] Comment on above: Order Comment: Comme nt Tube 1 Result Comment: The reference interval and other method performance specifications have not been established for this body fluid. The test result must be integrated into the clinical context for interpretation. Performed By: #### P T, PTT, CBC, TSH3 wRFLX, BMP, CK, T4F, HS TROP #### [address] TNC, CSF 1 /uL Normal 0-5 [facility] Comment on above: Order Comment: Comme nt Tube 1 Performed By: #### P T, PTT, CBC, TSH3 wRFLX, BMP, CK, T4F, HS TROP #### [address] Order Comment: Comme nt Tube 4 Total Count, CSF 3 Normal [facility] Comment on above: Order Comment: Comme nt Tube 1 Performed By: #### P T, PTT, CBC, TSH3 wRFLX, BMP, CK, T4F, HS TROP #### [address] Order Comment: Comme nt Tube 4 Tube Number Tested, CSF Tube Number: 1 Normal [facility] Comment on above: Order Comment: Comme nt Tube 1 Result Comment: PERF ORMED BY: [place] [address] PATHOLOGIST ANIMAL CARE SERVICE WORKER ANURADHA GRANADOS M.D. Performed By: #### P T, PTT, CBC, TSH3 wRFLX, BMP, CK, T4F, HS TROP #### [address] Cell Count Differential,CSF #2on 02-03-2025 Basophils, CSF 0 Normal [facility] Comment on above: Order Comment: Comme nt Tube 4 Result Comment: The reference interval and other method performance specifications have not been established for this body fluid. The test result must be integrated into the clinical context for interpretation. Performed By: #### P T, PTT, CBC, TSH3 wRFLX, BMP, CK, T4F, HS TROP #### [address] Lymphocytes, CSF 2 Normal [facility] Comment on above: Order Comment: Comme nt Tube 4 Result Comment: The reference interval and other method performance specifications have not been established for this body fluid. The test result must be integrated into the clinical context for interpretation. Performed By: #### P T, PTT, CBC, TSH3 wRFLX, BMP, CK, T4F, HS TROP #### [address] Macrophages, CSF 1 Normal [facility] Comment on above: Order Comment: Comme nt Tube 4 Result Comment: The reference interval and other method performance specifications have not been established for this body fluid. The test result must be integrated into the clinical context for interpretation. Performed By: #### P T, PTT, CBC, TSH3 wRFLX, BMP, CK, T4F, HS TROP #### [address] RBC, CSF 0 /uL Normal [facility] Comment on above: Order Comment: Comme nt Tube 4 Result Comment: The reference interval and other method performance specifications have not been established for this body fluid. The test result must be integrated into the clinical context for interpretation. Performed By: #### P T, PTT, CBC, TSH3 wRFLX, BMP, CK, T4F, HS TROP #### [address] Tube Number Tested, CSF Tube Number: 4 Normal [facility] Comment on above: Order Comment: Comme nt Tube 4 Result Comment: PERF ORMED BY: [place] [address] PATHOLOGIST ANIMAL CARE SERVICE WORKER ANURADHA GRANADOS M.D. Performed By: #### P T, PTT, CBC, TSH3 wRFLX, BMP, CK, T4F, HS TROP #### [address] Cerebrospinal fluid color id entificationOrdered By: Bartolome Amezquita on 02-03-2025 Color (CSF) Color CSF Colorless [facility] Cerebrospinal fluid post-izabella trifugation appearance determinationOrdered By: Bartolome Amezquita on 02-03-2025 Appearance (Spun CSF) Cerebrospinal flui d post-centrifugation appearance determination Colorless [facility] Cerebrospinal fluid sample t ube volume measurementOrdered By: Bartolome Amezquita on 02-03-2025 Specimen volume (CSF) Cerebrospinal flui d sample tube volume measurement [facility] Complete Blood Count Auto Di ffon 02-03-2025 Basophils (Bld) [#/Vol] 0.0 10*3/uL Normal 0.0-0.2 [facility] Comment on above: Result Comment: PERF ORMED BY: [place] [address] PATHOLOGIST ANIMAL CARE SERVICE WORKER ANURADHA GRANADOS M.D. Performed By: #### C BC #### [address] Basophils/100 WBC (Bld) 0.5 % Normal . T [facility] Comment on above: Performed By: #### C BC #### [place] [address] [place] Eosinophils (Bld) [#/Vol] 0.3 10*3/uL Normal 0.0-0.45 [facility] Comment on above: Performed By: #### C BC #### [address] Eosinophils/100 WBC (Bld) 5.7 % Normal . [facility] Comment on above: Performed By: #### C BC #### [address] Erythrocyte distribution width (RBC) [Ratio] 14.2 % Normal 12.0-14.8 [facility] Comment on above: Performed By: #### C BC #### [address] Hematocrit (Bld) [Volume fraction] 37.5 % Low 38.8-50.0 [facility] Comment on above: Performed By: #### C BC #### [address] Hemoglobin (Bld) [Mass/Vol] 12.8 g/dL Low 13.0-17.0 [facility] Comment on above: Performed By: #### C BC #### [address] Lymphocytes (Bld) [#/Vol] 1.8 10*3/uL Normal 1.00-4.8 [facility] Comment on above: Performed By: #### C BC #### [address] Lymphocytes/100 WBC (Bld) 31.3 % Normal . [facility] Comment on above: Performed By: #### C BC #### [address] MCH (RBC) [Entitic mass] 29.4 pg Normal 27.5-35.2 [facility] Comment on above: Performed By: #### C BC #### [address] MCV (RBC) [Entitic vol] 85.8 fL Normal 83.5-101 T [facility] Comment on above: Performed By: #### C BC #### [address] Mean Corpuscular HGB Conc 34.3 g/dL Normal 32.5-35.6 [facility] Comment on above: Performed By: #### C BC #### [address] Monocytes (Bld) [#/Vol] 0.5 10*3/uL Normal 0.0-0.8 [facility] Comment on above: Performed By: #### C BC #### [address] Monocytes/100 WBC (Bld) 9.4 % Normal . T [facility] Comment on above: Performed By: #### C BC #### [address] Neutrophils (Bld) [#/Vol] 3.1 10*3/uL Normal 1.8-7.7 [facility] Comment on above: Performed By: #### C BC #### [address] Neutrophils/100 WBC (Bld) 53.1 % Normal . [facility] Comment on above: Performed By: #### C BC #### [address] NRBC% 0.2 /100{WBC} Normal 0-0.5 [facility] Comment on above: Performed By: #### C BC #### [address] Platelet mean volume (Bld) [Entitic vol] 8.4 fL Normal 6.6-10.1 [facility] Comment on above: Performed By: #### C BC #### [address] Platelets (Bld) [#/Vol] 164 10*3/uL Normal 150-450 [facility] Comment on above: Performed By: #### C BC #### [address] RBC (Bld) [#/Vol] 4.37 10*6/uL Normal 3.90-5.60 [facility] Comment on above: Performed By: #### C BC #### [address] WBC (Bld) [#/Vol] 5.8 10*3/uL Normal 4.1-10.5 [facility] Comment on above: Performed By: #### C BC #### [address] Cryptococcus Ag CSFon 2024 CAP Mandated Culture Reflex Not Indicated Normal . [facility] Comment on above: Order Comment: Comme nt Tube 4 Result Comment: Perf ormed at: BN - [facility] [address] [id number] [employer] Counter Manager: Alfonso Pickens MD, Phone: [phone] PERFORMED BY: [address] [address] PATHOLOGIST ANIMAL CARE SERVICE WORKER ANURADHA GRANADOS M.D. Performed By: #### P T, PTT, CBC, TSH3 wRFLX, BMP, CK, T4F, HS TROP #### [facility] [address] [place] [address] Cryptococcus Antigen CSF Negative Normal Negative [facility] Comment on above: Order Comment: Comme nt Tube 4 Performed By: #### P T, PTT, CBC, TSH3 wRFLX, BMP, CK, T4F, HS TROP #### [facility] [address] [place] [address] Determination of appearance of cerebrospinal fluidOrdered By: Bartolome Amezquita on 02-03-2025 Appearance (CSF) Cerebrospinal fluid appearance description Clear [facility] Eosinophil count CSFOrdered By: Bartolome Amezquita on 02-03-2025 CSF Eosinophils 0 [facility] Comment on above: The reference interv al and other method performance specifications have not been established for this body fluid. The test result must be integrated into the clinical context for interpretation. Fungal Smearon 02-03-2025 Fungal Smear Comment Tube 2 Fungus Smear Results No Fungal Like Elements Seen No Yeast Like Elements Seen Comment Tube 2 Cytomegalovirus Not detected Cryptococcus neoformans or gattii 9002 Not detected Escherichia coli K1 Not detected Enterovirus Not detected Haemophilus influenzae (reported as H flu) Not detected Human herpesvirus 6 Not detected Herpes simplex virus 1 Not detected Herpes simplex virus 2 DNA [Presence] in Cerebral spinal fluid by BILLY with non-probe detection Not detected Listeria monocytogenes (reported as listeriosis) Not detected Neisseria meningitidis - reported as meningococcal disease Not detected Human parechovirus Not detected Streptococcus pneumoniae - reported at ISP Not detected Group B Strep (Streptococcus agalactiae) Not detected Varicella zoster virus Not detected PERFORMED BY: [place] [address] PATHOLOGIST ANIMAL CARE SERVICE WORKER ANURADHA GRANADOS M.D. Normal [facility] Comment on above: Performed By: #### P T, PTT, CBC, TSH3 wRFLX, BMP, CK, T4F, HS TROP #### [address] Fungal smearOrdered By: Bartolome Amezquita on 02-03-2025 Fungus identified Fungus stain Nom (Unsp spec) Fungal smear [facility] Glucose [Mass/volume] in Cer ebral spinal fluidOrdered By: Bartolome Amezquita on 02-03-2025 Glucose (CSF) [Mass/Vol] Glucose [Mass/v olume] in Cerebral spinal fluid 40-70 [facility] Glucose, CSF #2on 02-03-2025 Glucose, CSF #2 61 mg/dL Normal 40-70 [facility] Comment on above: Order Comment: Comme nt Tube 4 Performed By: #### C BC #### [place] [address] [place] Glucose, Spinal Fluidon Glucose, Spinal Fluid 62 mg/dL Normal 40-70 [facility] Comment on above: Order Comment: Comme nt Tube 1 Performed By: #### C BC #### [address] Gram Stainon 02-03-2025 Microscopic observation Gram stain Nom (Unsp spec) Comment Tube 2 Gram Stain Result No White Blood Cells Seen No Bacteria Seen PERFORMED BY: [place] [address] PATHOLOGIST ANIMAL CARE SERVICE WORKER ANURADHA GRANADOS M.D. Normal [facility] Comment on above: Performed By: #### C BC #### [address] Gram stain microscopyOrdered By: Bartolome Amezquita on 02-03-2025 Microscopic observation Gram stain Nom (Unsp spec) Gram stain microscopy [facility] INR in Platelet poor plasma by Coagulation assayOrdered By: Bartolome Amezquita on 02-03-2025 INR Coag (PPP) [Relative time] INR in Platelet poor plasma by Coagulation assay [facility] Comment on above: INR Therapeutic Rang e A) Pre- and Peroperative OAT started two weeks before surgery. NOT HIP SURGERY: 1.5 - 2.5 HIP SURGERY: 2 - 3B) Primary and secondary prevention of venous THROMBOSIS: 2 - 3C) Active venous thrombosis, pulmonary embolismand prevention of recurrent venous thrombosis: 2 - 3D) Prevention of arterial thromboembolismincluding patients with mechanical heart valves: 3 - 4.5 Chuy 02-03-2025 L ----- Specimen: [id number] Received: 02/04/25 Status: LOGAN Garcia Num: [id number] Spec Type: Cytology Subm Dr: Bartolome Amezquita DO Tissues: A CSF (CSF) Procedures: Cyto Prepstain, DIFF QWIK, PAPSTN Age/ Patient Sex Location Account Attending Physician Bailee Traore/Denia 5T [id number] Omkar Louie MD SPEC NUM: [id number] RECD: 02/04/25 STATUS: LOGAN GARCIA NUM: [id number] ALEXANDRO: 02/03/25-[address] [facility] [address]: Bartolome Amezquita DO ENTERED: 02/04/[address] [facility] [address]: SPEC TYPE: Cytology DEPT: [facility] ENTERED BY: [id number] RECV BY: [id number] ORDERED: Cyto Prepstain, DIFF QWIK, PAPSTN ORDERED: Cyto Prepstain, DIFF QWIK, PAPSTN Pathological Diagnosis CSF cytology: -No obvious atypical cell -Few mononuclear cells or monocytes and occasional lymphoid cells, compatible with mild reactive pleocytosis Clinical Information 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 Cytospin slides are stained with Papanicolaou and Diff-Quik stains. (CC/nh) Microscopic Description Microscopic examinations are performed supporting the above interpretation Specimen: [id number] Received: 02/04/25 Status: LOGAN Garcia Num: [id number] Spec Type: Cytology Subm Dr: Bartolome Amezquita DO Tissues: A CSF (CSF) Procedures: Cyto Prepstain, DIFF QWIK, PAPSTN Patient: TraoreBailee [id number] (Continued) Specimen: [id number] Received: 02/04/25 (Continued) Signed (signature on file) Rene Cavazos MD 02/05/25 0944 Specimen: [id number] Received: 02/04/25 Status: LOGAN Jessica Num: [id number] Spec Type: Cytology Subm Dr: Bartolome Amezquita DO Tissues: A CSF (CSF) Procedures: Cyto Prepstain, DIFF QWIK, PAPSTN Patient: Bailee Traore [id number] (Continued) Specimen: [id number] Received: 02/04/25 (Continued) CPT Codes 64811 Specimen: [id number] Received: 02/04/25 Status: LOGAN Barriosjay Num: [id number] Spec Type: Cytology Subm Dr: Bartolome Amezquita DO Tissues: A CSF (CSF) Procedures: Cyto Prepstain, DIFF QWIK, PAPSTN Patient: Bailee Traore [id number] (Continued) Signed (signature on file) Rene Cavazos MD 02/05/25 0944 Normal [facility] Lymphocyte count CSFOrdered By: Bartolome Amezquita on 02-03-2025 CSF Lymphocytes 2 [facility] Comment on above: The reference interv al and other method performance specifications have not been established for this body fluid. The test result must be integrated into the clinical context for interpretation. Macrophage count CSFOrdered By: Bartolome Amezquita on 02-03-2025 CSF Macrophages 1 [facility] Comment on above: The reference interv al and other method performance specifications have not been established for this body fluid. The test result must be integrated into the clinical context for interpretation. Manual cerebrospinal fluid e rythrocytes count (number/volume)Ordered By: Bartolome Amezquita on 02-03-2025 RBC Manual cnt (CSF) [#/Vol] Manual cerebrospinal fluid erythrocytes count (number/volume) [facility] Comment on above: The reference interv al and other method performance specifications have not been established for this body fluid. The test result must be integrated into the clinical context for interpretation. Meningitis+Encephalitis path ogens DNA and RNA panel - Cerebral spinal fluid by BILLY wiOrdered By: Bartolome Amezquita on 02-03-2025 Meningitis+Encephalitis pathogens DNA and RNA panel BILLY+non-probe (CSF) Meningitis+Encephalitis pathogens DNA and RNA panel - Cerebral spinal fluid by BILLY wi [facility] Monocyte count CSFOrdered By : Bartolome Amezquita on 02-03-2025 CSF Monocytes 0 [facility] Comment on above: The reference interv al and other method performance specifications have not been established for this body fluid. The test result must be integrated into the clinical context for interpretation. Neutrophil count CSFOrdered By: Bartolome Amezquita on 02-03-2025 CSF Neutrophils 0 [facility] Comment on above: The reference interv al and other method performance specifications have not been established for this body fluid. The test result must be integrated into the clinical context for interpretation. No Panel InformationOrdered By: Bartolome Amezquita on 02-03-2025 CSF Cryptococcus Antigen Negative Negative [facility] CSF Total Cells Counted 3 F [facility] CSF Tube Number Tube number: 4 [facility] Nucleated cells [#/volume] i n Cerebral spinal fluid by Manual countOrdered By: Bartolome Amezquita on 02-03-2025 Nucleated cells Manual cnt (CSF) [#/Vol] Nucleated cells [#/volume] in Cerebral spinal fluid by Manual count 0-5 [facility] Partial Thromboplastin Timeo n 02-03-2025 aPTT Coag (Bld) [Time] 31.4 s Normal 25.1-36.5 Th e [facility] Comment on above: Result Comment: A he matocrit value greater than 55% may lead to inaccurate results in coagulation testing. Patients having hematocrit values >55% require a special collection tube for coagulation studies. Please contact the laboratory at [phone] for redraw instructions. PERFORMED BY: [place] [address] PATHOLOGIST ANIMAL CARE SERVICE WORKER ANURADHA GRANADOS M.D. Performed By: #### P TT, PT #### [place] [id number] [facility] Protein [Mass/volume] in Cer ebral spinal fluidOrdered By: Bartolome Amezquita on 02-03-2025 Protein (CSF) [Mass/Vol] Protein [Mass/v olume] in Cerebral spinal fluid High 15-45 [facility] Prothrombin Time INRon 02-03 INR Coag (PPP) [Relative time] 1.2 {INR} Normal [facility] Comment on above: Result Comment: INR Therapeutic Range A) Pre- and Peroperative OAT started two weeks before surgery. NOT HIP SURGERY: 1.5 - 2.5 HIP SURGERY: 2 - 3 B) Primary and secondary prevention of venous THROMBOSIS: 2 - 3 C) Active venous thrombosis, pulmonary embolism and prevention of recurrent venous thrombosis: 2 - 3 D) Prevention of arterial thromboembolism including patients with mechanical heart valves: 3 - 4.5 Performed By: #### P TT, PT #### [place] [id number] [facility] PT Coag (PPP) [Time] 13.1 s High 9.0-12.9 [facility] Comment on above: Result Comment: A matocrit value greater than 55% may lead to inaccurate results in coagulation testing. Patients having hematocrit values >55% require a special collection tube for coagulation studies. Please contact the laboratory at [phone] for redraw instructions. Performed By: #### P TT, PT #### [address] [address] [facility] Prothrombin time (PT)Ordered By: Bartolome Amezquita on 02-03-2025 PT Coag (PPP) [Time] Prothrombin time (PT) High 9.0- 12.9 [facility] Comment on above: A hematocrit value g reater than 55% may lead to inaccurate results in coagulation testing. Patients having hematocrit values >55% require a special collection tube for coagulation studies. Please contact the laboratory at [phone] for redraw instructions. Total Protein, CSF #2on Total Protein, CSF #2 101 mg/dL High [facility] Comment on above: Order Comment: Comme nt Tube 4 Result Comment: PERF ORMED BY: [place] [address] PATHOLOGIST ANIMAL CARE SERVICE WORKER ANURADHA GRANADOS M.D. Performed By: #### C BC #### [address] Total Protein, Spinal Fluido n 02-03-2025 Total Protein, Spinal Fluid 100 mg/dL High [facility] Comment on above: Order Comment: Comme nt Tube 1 Result Comment: PERF ORMED BY: [place] [address] PATHOLOGIST ANIMAL CARE SERVICE WORKER ANURADHA GRANADOS M.D. Performed By: #### C BC #### [address] aPTT in Platelet poor plasma by Coagulation assayOrdered By: Bartolome Amezquita on 02-03-2025 aPTT Coag (PPP) [Time] Activated partial thromboplastin time (aPTT) in platelet poor plasma by coagulation a 25.1-36.5 [facility] Comment on above: A hematocrit value g reater than 55% may lead to inaccurate results in coagulation testing. Patients having hematocrit values >55% require a special collection tube for coagulation studies. Please contact the laboratory at [phone] for redraw instructions. Basic Metabolic Panelon Anion gap [Moles/Vol] 8.2 mmol/L Normal 6.0-15.0 [facility] Comment on above: Performed By: #### P T, PTT, CBC, TSH3 wRFLX, BMP, CK, T4F, HS TROP #### [address] Calcium [Mass/Vol] 8.5 mg/dL Low 8.6-10.3 [facility] Comment on above: Performed By: #### P T, PTT, CBC, TSH3 wRFLX, BMP, CK, T4F, HS TROP #### [address] Chloride [Moles/Vol] 105 mmol/L Normal 98-107 [facility] Comment on above: Performed By: #### P T, PTT, CBC, TSH3 wRFLX, BMP, CK, T4F, HS TROP #### [address] CO2 [Moles/Vol] 28.5 mmol/L Normal 21.0-31.0 [facility] Comment on above: Performed By: #### P T, PTT, CBC, TSH3 wRFLX, BMP, CK, T4F, HS TROP #### [address] Creatinine [Mass/Vol] 0.72 mg/dL Normal 0.70-1.30 [facility] Comment on above: Performed By: #### P T, PTT, CBC, TSH3 wRFLX, BMP, CK, T4F, HS TROP #### [address] Creatinine Clr Calc Pharmacy 79.49 Normal [facility] Comment on above: Result Comment: PERF ORMED BY: [place] [address] PATHOLOGIST ANIMAL CARE SERVICE WORKER ANURADHA GRANADOS M.D. Performed By: #### P T, PTT, CBC, TSH3 wRFLX, BMP, CK, T4F, HS TROP #### [address] GFR/1.73 sq M.predicted MDRD (S/P/Bld) [Vol rate/Area] mL/min/{1.73_m2} Normal [facility] Comment on above: Performed By: #### P T, PTT, CBC, TSH3 wRFLX, BMP, CK, T4F, HS TROP #### [facility] [address] Glucose [Mass/Vol] 84 mg/dL Normal 70-100 [facility] Comment on above: Result Comment: [place] Glucose Reference Range is dependent on time and content of last meal. Glucose of more than 200 mg/dL in a nonstressed, ambulatory subject supports the diagnosis of Diabetes Mellitus. ADA recommended reference range Performed By: #### P T, PTT, CBC, TSH3 wRFLX, BMP, CK, T4F, HS TROP #### [address] Potassium [Moles/Vol] 3.7 mmol/L Normal 3.5-5.1 [facility] Comment on above: Performed By: #### P T, PTT, CBC, TSH3 wRFLX, BMP, CK, T4F, HS TROP #### [address] Sodium [Moles/Vol] 138 mmol/L Normal 136-145 [facility] Comment on above: Performed By: #### P T, PTT, CBC, TSH3 wRFLX, BMP, CK, T4F, HS TROP #### [place] [address] [place] Urea nitrogen [Mass/Vol] 15 mg/dL Normal 7-25 [facility] Comment on above: Performed By: #### P T, PTT, CBC, TSH3 wRFLX, BMP, CK, T4F, HS TROP #### [place] [address] [place] Magnesiumon 02-02-2025 Magnesium [Mass/Vol] 1.7 mg/dL Low 1.9-2.7 [facility] Comment on above: Result Comment: PERF ORMED BY: [place] [address] PATHOLOGIST ANIMAL CARE SERVICE WORKER ANURADHA GRANADOS M.D. Performed By: #### P T, PTT, CBC, TSH3 wRFLX, BMP, CK, T4F, HS TROP #### [address] Magnesium [Mass/volume] in S danielle or PlasmaOrdered By: Romy Leon on 02-02-2025 Magnesium [Mass/Vol] Magnesium [Mass/vol ume] in Serum or Plasma Low 1.9-2.7 [facility] Basic Metabolic Panelon Anion gap [Moles/Vol] 11.5 mmol/L Normal 6.0-15.0 Th e [facility] Comment on above: Performed By: #### P TT, PT #### [address] Calcium [Mass/Vol] 9.2 mg/dL Normal 8.6-10.3 [facility] Comment on above: Performed By: #### P TT, PT #### [address] Chloride [Moles/Vol] 100 mmol/L Normal 98-107 [facility] Comment on above: Performed By: #### P TT, PT #### [address] CO2 [Moles/Vol] 28.7 mmol/L Normal 21.0-31.0 [facility] Comment on above: Performed By: #### P TT, PT #### [address] Creatinine [Mass/Vol] 0.82 mg/dL Normal 0.70-1.30 [facility] Comment on above: Performed By: #### P TT, PT #### [place] [address] [place] Creatinine Clr Calc Pharmacy 77.55 Normal [facility] Comment on above: Result Comment: PERF ORMED BY: [place] [address] PATHOLOGIST ANIMAL CARE SERVICE WORKER ANURADHA GRANADOS M.D. Performed By: #### P TT, PT #### [place] [address] [place] GFR/1.73 sq M.predicted MDRD (S/P/Bld) [Vol rate/Area] mL/min/{1.73_m2} Normal [facility] Comment on above: Performed By: #### P TT, PT #### [place] [address] [place] Glucose [Mass/Vol] 132 mg/dL High 70-100 [facility] Comment on above: Result Comment: [facility] Glucose Reference Range is dependent on time and content of last meal. Glucose of more than 200 mg/dL in a nonstressed, ambulatory subject supports the diagnosis of Diabetes Mellitus. ADA recommended reference range Performed By: #### P TT, PT #### [address] Potassium [Moles/Vol] 3.2 mmol/L Low 3.5-5.1 [facility] Comment on above: Performed By: #### P TT, PT #### [place] [address] [place] Sodium [Moles/Vol] 137 mmol/L Normal 136-145 [facility] Comment on above: Performed By: #### P TT, PT #### [address] Urea nitrogen [Mass/Vol] 18 mg/dL Normal 7-25 [facility] Comment on above: Performed By: #### P TT, PT #### [address] Potassiumon 02-01-2025 Potassium [Moles/Vol] 3.8 mmol/L Normal 3.5-5.1 [facility] Comment on above: Result Comment: PERF ORMED BY: [place] [address] PATHOLOGIST ANIMAL CARE SERVICE WORKER ANURADHA GRANADOS M.D. Performed By: #### P T, PTT, CBC, TSH3 wRFLX, BMP, CK, T4F, HS TROP #### [facility] [address] [place] [address] [facility] Alanine aminotransferase [En zymatic activity/volume] in Serum or PlasmaOrdered By: Oren Lara on 01-31-2025 ALT [Catalytic activity/Vol] Alanine aminotransferase [Enzymatic activity/volume] in Serum or Plasma 7-52 [facility] Albumin [Mass/volume] in Ser um or Plasma by Bromocresol green (BCG) dye binding methoOrdered By: Oren Lara on 01-31-2025 Albumin BCG dye [Mass/Vol] Albumin [Mass/volume] in Serum or Plasma by Bromocresol green (BCG) dye binding metho Low 3.5-5.7 [facility] Alkaline phosphatase [Enzyma tic activity/volume] in Serum or PlasmaOrdered By: Oren Lara on 01-31-2025 ALP [Catalytic activity/Vol] Alkaline phosphatase [Enzymatic activity/volume] in Serum or Plasma 34-104 [facility] Aspartate aminotransferase [ Enzymatic activity/volume] in Serum or PlasmaOrdered By: Oren Lara on 01-31-2025 AST [Catalytic activity/Vol] Aspartate aminotransferase [Enzymatic activity/volume] in Serum or Plasma 13-39 [facility] Bilirubin.total [Mass/volume ] in Serum or PlasmaOrdered By: Oren Lara on 01-31-2025 Bilirubin [Mass/Vol] Bilirubin.total [Mass/volume] in Serum or Plasma High 0.3-1.0 [facility] Comment on above: Samples from patient s who have taken Naproxen have shown spurious elevation in Total Bilirubin levels. A metabolite of Naproxen, O-desmethylnaproxen, has been shown to interfere with the [place] method for measuring Total Bilirubin. Complete Blood Count Auto Di ffon 01-31-2025 Basophils (Bld) [#/Vol] 0.1 10*3/uL Normal 0.0-0.2 [facility] Comment on above: Result Comment: PERF ORMED BY: [address] [place] [address] PATHOLOGIST ANIMAL CARE SERVICE WORKER ANURADHA GRANADOS M.D. Performed By: #### R LIANNA Hall #### [place] [address] [place] Basophils/100 WBC (Bld) 1.2 % Normal . [facility] Comment on above: Performed By: #### R LIANNA K #### [place] [address] [place] Eosinophils (Bld) [#/Vol] 0.2 10*3/uL Normal 0.0-0.45 [facility] Comment on above: Performed By: #### Yasmin DSOUZA K #### [place] [address] [place] Eosinophils/100 WBC (Bld) 3.3 % Normal . [facility] Comment on above: Performed By: #### Yasmin DSOUZA K #### [address] Erythrocyte distribution width (RBC) [Ratio] 13.8 % Normal 12.0-14.8 [facility] Comment on above: Performed By: #### Yasmin DSOUZA K #### [address] Hematocrit (Bld) [Volume fraction] 41.4 % Normal 38.8-50.0 [facility] Comment on above: Performed By: #### Yasmin DSOUZA K #### [address] Hemoglobin (Bld) [Mass/Vol] 14.3 g/dL Normal 13.0-17.0 [facility] Comment on above: Performed By: #### Yasmin DSOUZA K #### [place] [address] [place] Lymphocytes (Bld) [#/Vol] 1.3 10*3/uL Normal 1.00-4.8 [facility] Comment on above: Performed By: #### R LIANNA K #### [place] [address] [place] Lymphocytes/100 WBC (Bld) 22.5 % Normal . [facility] Comment on above: Performed By: #### Yasmin Hall #### [address] MCH (RBC) [Entitic mass] 29.4 pg Normal 27.5-35.2 [facility] Comment on above: Performed By: #### Yasmin DSOUZA K #### [address] MCV (RBC) [Entitic vol] 85.5 fL Normal 83.5-101 [facility] Comment on above: Performed By: #### Yasmin DSOUZA K #### [address] Mean Corpuscular HGB Conc 34.4 g/dL Normal 32.5-35.6 [facility] Comment on above: Performed By: #### Yasmin Hall #### [address] Monocytes (Bld) [#/Vol] 0.8 10*3/uL Normal 0.0-0.8 [facility] Comment on above: Performed By: #### Yasmin Hall #### [address] Monocytes/100 WBC (Bld) 13.8 % Normal . T [facility] Comment on above: Performed By: #### Yasmin Hall #### [address] Neutrophils (Bld) [#/Vol] 3.4 10*3/uL Normal 1.8-7.7 [facility] Comment on above: Performed By: #### Yasmin Hall #### [address] Neutrophils/100 WBC (Bld) 59.2 % Normal . [facility] Comment on above: Performed By: #### Yasmin DSOUZA K #### [address] NRBC% 0.1 /100{WBC} Normal 0-0.5 [facility] Comment on above: Performed By: #### Yasmin Hall #### [address] Platelet mean volume (Bld) [Entitic vol] 8.6 fL Normal 6.6-10.1 [facility] Comment on above: Performed By: #### Yasmin Hall #### [address] Platelets (Bld) [#/Vol] 164 10*3/uL Normal 150-450 [facility] Comment on above: Performed By: #### Yasmin Hall #### [address] RBC (Bld) [#/Vol] 4.84 10*6/uL Normal 3.90-5.60 [facility] Comment on above: Performed By: #### Yasmin Hall #### [address] WBC (Bld) [#/Vol] 5.8 10*3/uL Normal 4.1-10.5 [facility] Comment on above: Performed By: #### Yasmin Hall #### [address] Comprehensive Metabolic Pane chuy 01-31-2025 Albumin [Mass/Vol] 3.4 g/dL Low 3.5-5.7 [facility] Comment on above: Performed By: #### Yasmin Hall #### [address] Albumin/Globulin [Mass ratio] 1.0 {ratio} Normal [facility] Comment on above: Performed By: #### Yasmin Hall #### [address] ALP [Catalytic activity/Vol] 89 U/L Normal 34-104 [facility] Comment on above: Performed By: #### Yasmin Hall #### [address] ALT [Catalytic activity/Vol] 17 U/L Normal 7-52 [facility] Comment on above: Performed By: #### Yasmin Hall #### [address] Anion gap [Moles/Vol] 10.0 mmol/L Normal 6.0-15.0 Th e [facility] Comment on above: Performed By: #### Yasmin DSOUZA K #### [address] AST [Catalytic activity/Vol] 37 U/L Normal 13-39 [facility] Comment on above: Performed By: #### Yasmin DSOUZA K #### [address] Bilirubin [Mass/Vol] 1.4 mg/dL High 0.3-1.0 [facility] Comment on above: Result Comment: Samp les from patients who have taken Naproxen have shown spurious elevation in Total Bilirubin levels. A metabolite of Naproxen, O-desmethylnaproxen, has been shown to interfere with the [place] method for measuring Total Bilirubin. Performed By: #### Yasmin DSOUZA K #### [address] Calcium [Mass/Vol] 8.8 mg/dL Normal 8.6-10.3 [facility] Comment on above: Performed By: #### Yasmin DSOUZA K #### [place] [address] [place] Chloride [Moles/Vol] 100 mmol/L Normal 98-107 [facility] Comment on above: Performed By: #### Yasmin Hall #### [place] [address] [place] CO2 [Moles/Vol] 30.1 mmol/L Normal 21.0-31.0 [facility] Comment on above: Performed By: #### Yasmin DSOUZA K #### [address] Creatinine [Mass/Vol] 0.74 mg/dL Normal 0.70-1.30 [facility] Comment on above: Performed By: #### Yasmin Hall #### [address] Creatinine Clr Calc Pharmacy 79.49 Normal [facility] Comment on above: Performed By: #### Yasmin Hall #### [place] [address] [place] GFR/1.73 sq M.predicted MDRD (S/P/Bld) [Vol rate/Area] mL/min/{1.73_m2} Normal [facility] Comment on above: Performed By: #### Yasmin Hall #### [address] Globulin (S) [Mass/Vol] 3.3 g/dL Normal T he [facility] Comment on above: Performed By: #### Yasmin Hall #### [address] Glucose [Mass/Vol] 108 mg/dL High 70-100 [facility] Comment on above: Result Comment: [place] Glucose Reference Range is dependent on time and content of last meal. Glucose of more than 200 mg/dL in a nonstressed, ambulatory subject supports the diagnosis of Diabetes Mellitus. ADA recommended reference range Performed By: #### Yasmin aHll #### [address] Potassium [Moles/Vol] 3.1 mmol/L Low 3.5-5.1 [facility] Comment on above: Performed By: #### Yasmin Hall #### [address] Protein [Mass/Vol] 6.7 g/dL Normal 6.4-8.9 [facility] Comment on above: Performed By: #### Yasmin Hall #### [address] Sodium [Moles/Vol] 137 mmol/L Normal 136-145 [facility] Comment on above: Performed By: #### Yasmin Hall #### [address] Urea nitrogen [Mass/Vol] 21 mg/dL Normal 7-25 [facility] Comment on above: Performed By: #### R LIANNA Hall #### [facility] [address] Globulin Calc (S) [Mass/Vol] Ordered By: Oren Lara on 01-31-2025 Globulin (S) [Mass/Vol] Serum globulin measurement by calculation (mass/volume) [facility] Prealbuminon 01-31-2025 Prealbumin [Mass/Vol] 13.1 mg/dL Low 17.0-34.0 [facility] Comment on above: Result Comment: PERF ORMED BY: [place] [address] PATHOLOGIST ANIMAL CARE SERVICE WORKER ANURADHA GRANADOS M.D. Performed By: #### R LIANNA K #### [address] Prealbumin [Mass/volume] in Serum or PlasmaOrdered By: Oren Lara on 01-31-2025 Prealbumin [Mass/Vol] Prealbumin [Mass/v olume] in Serum or Plasma Low 17.0-34.0 [facility] Protein [Mass/volume] in Ser um or PlasmaOrdered By: Oren Lara on 01-31-2025 Protein [Mass/Vol] Protein [Mass/volume ] in Serum or Plasma 6.4-8.9 [facility] Serum or plasma albumin/glob ulin mass ratioOrdered By: Oren Lara on 01-31-2025 Albumin/Globulin [Mass ratio] Serum or plasma albumin/globulin mass ratio [facility] AMPAR1 Ab [Presence] in Seru m by ImmunofluorescenceOrdered By: Bartolome Amezquita on 01-30-2025 AMPAR1 Ab IF Ql (S) AMPAR1 Ab [Presence] in Serum by Immunofluorescence Negative [facility] Comment on above: This test was develieo ped and its performance characteristicsdetermined by [facility]. It has not been cleared orapproved by the Food and Drug Administration. AMPAR2 Ab [Presence] in Seru m by ImmunofluorescenceOrdered By: Bartolome Amezquita on 01-30-2025 AMPAR2 Ab IF Ql (S) AMPAR2 Ab [Presence] in Serum by Immunofluorescence Negative [facility] Comment on above: This test was develo ped and its performance characteristicsdetermined by [facility]. It has not been cleared orapproved by the Food and Drug Administration. Amphiphysin Ab [Presence] in SerumOrdered By: Bartolome Amezquita on 01-30-2025 Amphiphysin Ab Ql (S) Amphiphysin Ab [Pr esence] in Serum Negative [facility] Comment on above: This test was develo ped and its performance characteristicsdetermined by [facility]. It has not been cleared orapproved by the Food and Drug Administration. Autoimmune Encephalitis Prof on 01-30-2025 AGNA-1 Negative Normal Negative [facility] Comment on above: Order Comment: deniz harrell Result Comment: This test was developed and its performance characteristics determined by [facility]. It has not been cleared or approved by the Food and Drug Administration. Performed By: #### P TT, PT #### [address] AMPA-R1 Antibody Negative Normal Negative [facility] Comment on above: Order Comment: deniz harrell Result Comment: This test was developed and its performance characteristics determined by [facility]. It has not been cleared or approved by the Food and Drug Administration. Performed By: #### P TT, PT #### [address] AMPA-R2 Antibody Negative Normal Negative [facility] Comment on above: Order Comment: deniz harrell Result Comment: This test was developed and its performance characteristics determined by [facility]. It has not been cleared or approved by the Food and Drug Administration. Performed By: #### P TT, PT #### [place] [address] [place] Amphiphysin Antibody Negative Normal Negative [facility] Comment on above: Order Comment: deniz harrell Result Comment: This test was developed and its performance characteristics determined by [facility]. It has not been cleared or approved by the Food and Drug Administration. Performed By: #### P TT, PT #### [place] [address] [place] Anti-Hu Ab Negative Normal Negative [facility] Comment on above: Order Comment: sharri crn Result Comment: This test was developed and its performance characteristics determined by [facility]. It has not been cleared or approved by the Food and Drug Administration. Performed By: #### P TT, PT #### [place] [address] [place] Anti-Ri Antibody Negative Normal Negative [facility] Comment on above: Order Comment: sharri crn Result Comment: This test was developed and its performance characteristics determined by [facility]. It has not been cleared or approved by the Food and Drug Administration. Performed By: #### P TT, PT #### [place] [address] [place] Antineuronal nuclear Ab Type 3 Negative Normal Negative [facility] Comment on above: Order Comment: sharri crn Result Comment: This test was developed and its performance characteristics determined by [facility]. It has not been cleared or approved by the Food and Drug Administration. Performed By: #### P TT, PT #### [place] [address] [place] Autoimmune Encephalitis Prof Negative Normal Negative [facility] Comment on above: Order Comment: sharri crn Result Comment: No i nformative autoantibodies were detected. However, a negative result does not exclude idiopathic or paraneoplastic autoimmune encephalopathy. Performed By: #### P TT, PT #### [place] [address] [place] CASPR2 Antibody Cell-based IFA Negative Normal Negative [facility] Comment on above: Order Comment: sharri, crn Result Comment: This test was developed and its performance characteristics determined by [facility]. It has not been cleared or approved by the Food and Drug Administration. Performed By: #### P TT, PT #### [place] [address] [place] CRMP-5 IgG Negative Normal Negative [facility] Comment on above: Order Comment: sharri, crn Result Comment: This test was developed and its performance characteristics determined by [facility]. It has not been cleared or approved by the Food and Drug Administration. Performed By: #### P TT, PT #### [address] DNER Antibody Negative Normal Negative [facility] Comment on above: Order Comment: deniz harrell Result Comment: This test was developed and its performance characteristics determined by [facility]. It has not been cleared or approved by the Food and Drug Administration. Performed By: #### P TT, PT #### [address] DPPX Antibody Negative Normal Negative [facility] Comment on above: Order Comment: sharrideniz angela Result Comment: This test was developed and its performance characteristics determined by [facility]. It has not been cleared or approved by the Food and Drug Administration. Performed By: #### P TT, PT #### [address] TAYLOR-B-R Antibody Negative Normal Negative [facility] Comment on above: Order Comment: deniz harrell Result Comment: This test was developed and its performance characteristics determined by [facility]. It has not been cleared or approved by the Food and Drug Administration. Performed By: #### P TT, PT #### [address] GAD65 Antibody Negative Normal Negative [facility] Comment on above: Order Comment: deniz harrell Result Comment: This test was developed and its performance characteristics determined by [facility]. It has not been cleared or approved by the Food and Drug Administration. Performed By: #### P TT, PT #### [place] [address] [place] IgLON5 Antibody Negative Normal Negative [facility] Comment on above: Order Comment: deniz harrell Result Comment: This test was developed and its performance characteristics determined by [facility]. It has not been cleared or approved by the Food and Drug Administration. Performed By: #### P TT, PT #### [address] ITPR1 Antibody Negative Normal Negative [facility] Comment on above: Order Comment: deniz harrell Result Comment: This test was developed and its performance characteristics determined by [facility]. It has not been cleared or approved by the Food and Drug Administration. Performed By: #### P TT, PT #### [address] LGI1 Antibody Cell-based IFA Negative Normal Negative [facility] Comment on above: Order Comment: deniz harrell Result Comment: This test was developed and its performance characteristics determined by [facility]. It has not been cleared or approved by the Food and Drug Administration. Performed at: [address] [id number] Cos[employer] Counter Manager: Alfonso Pickens MD, Phone: [phone] PERFORMED BY: [place] [address] PATHOLOGIST ANIMAL CARE SERVICE WORKER ANURADHA GRANADOS M.D. Performed By: #### P TT, PT #### [address] Ma/Ta Antibody Negative Normal Negative [facility] Comment on above: Order Comment: deniz harrell Result Comment: This test was developed and its performance characteristics determined by [facility]. It has not been cleared or approved by the Food and Drug Administration. Performed By: #### P TT, PT #### [address] mGluR1 Antibody Negative Normal Negative [facility] Comment on above: Order Comment: deniz harrell Result Comment: This test was developed and its performance characteristics determined by [facility]. It has not been cleared or approved by the Food and Drug Administration. Performed By: #### P TT, PT #### [address] NMDA-R Antibody Negative Normal Negative [facility] Comment on above: Order Comment: deniz harrell Result Comment: This test was developed and its performance characteristics determined by [facility]. It has not been cleared or approved by the Food and Drug Administration. Performed By: #### P TT, PT #### [address] COMMUNITY RELATIONS OFFICER Type-1 (Anti-Yo) Antibody Negative Normal Negative [facility] Comment on above: Order Comment: deniz harrell Result Comment: This test was developed and its performance characteristics determined by [facility]. It has not been cleared or approved by the Food and Drug Administration. Performed By: #### P TT, PT #### [address] Purkinje Cell Cyto Ab Type 2 Negative Normal Negative [facility] Comment on above: Order Comment: deniz harrell Result Comment: This test was developed and its performance characteristics determined by [facility]. It has not been cleared or approved by the Food and Drug Administration. Performed By: #### P TT, PT #### [address] Purkinje Cell Cyto Ab Type Tr Negative Normal Negative [facility] Comment on above: Order Comment: deniz harrell Result Comment: This test was developed and its performance characteristics determined by [facility]. It has not been cleared or approved by the Food and Drug Administration. Performed By: #### P TT, PT #### [address] Zic4 Antibody Negative Normal Negative [facility] Comment on above: Order Comment: deniz harrell Result Comment: This test was developed and its performance characteristics determined by [facility]. It has not been cleared or approved by the Food and Drug Administration. Performed By: #### P TT, PT #### [address] CV2 IgG Ab [Units/volume] in SerumOrdered By: Bartolome Amezquita on 01-30-2025 CV2 IgG Qn (S) CV2 IgG Ab [Units/vo lume] in Serum Negative [facility] Comment on above: This test was develo ped and its performance characteristicsdetermined by [facility]. It has not been cleared orapproved by the Food and Drug Administration. Contactin-associated protein 2 IgG Ab [Presence] in Serum or Plasma by ImmunofluorescOrdered By: Bartolome Amezquita on 01-30-2025 Contactin-associated protein 2 IgG IF Ql Contactin-associated protein 2 IgG Ab [Presence] in Serum or Plasma by Immunofluoresc Negative [facility] Comment on above: This test was develo ped and its performance characteristicsdetermined by [facility]. It has not been cleared orapproved by the Food and Drug Administration. Dipeptidyl aminopeptidase-li ke protein 6 IgG Ab [Presence] in Serum or Plasma by ImmuOrdered By: Bartolome Amezquita on 01-30-2025 Dipeptidyl aminopeptidase-like protein 6 IgG IF Ql Dipeptidyl aminopeptidase-like protein 6 IgG Ab [Presence] in Serum or Plasma by Immu Negative [facility] Comment on above: This test was develo ped and its performance characteristicsdetermined by [facility]. It has not been cleared orapproved by the Food and Drug Administration. GABABR Ab [Presence] in Seru m by ImmunofluorescenceOrdered By: Bartolome Amezquita on 01-30-2025 GABABR Ab IF Ql (S) GABABR Ab [Presence] in Serum by Immunofluorescence Negative [facility] Comment on above: This test was develo ped and its performance characteristicsdetermined by [facility]. It has not been cleared orapproved by the Food and Drug Administration. Glial nuclear type 1 Ab [Pre sence] in Serum by ImmunofluorescenceOrdered By: Bartolome Amezquita on 01-30-2025 Glial nuclear type 1 Ab IF Ql (S) Glial nuclear type 1 Ab [Presence] in Serum by Immunofluorescence Negative [facility] Comment on above: This test was develo ped and its performance characteristicsdetermined by [facility]. It has not been cleared orapproved by the Food and Drug Administration. Glutamate decarboxylase 65 I gG+IgM Ab [Moles/volume] in Serum by ImmunoassayOrdered By: Bartolome Amezquita on 01-30-2025 Glutamate decarboxylase 65 IgG+IgM IA (S) [Moles/Vol] Glutamate decarboxylase 65 IgG+IgM Ab [Moles/volume] in Serum by Immunoassay Negative [facility] Comment on above: This test was develo ped and its performance characteristicsdetermined by [facility]. It has not been cleared orapproved by the Food and Drug Administration. IgLON5 IgG Ab [Presence] in Serum by ImmunofluorescenceOrdered By: Bartolome Amezquita on 01-30-2025 IgLON5 IgG Ab [Presence] in Serum by Immunofluorescence IgLON5 IgG Ab [Presence] in Serum by Immunofluorescence Negative [facility] Comment on above: This test was develo ped and its performance characteristicsdetermined by [employer]. It has not been cleared orapproved by the Food and Drug Administration. Inositol 1,4,5-trisphosphate receptor type 1 IgG Ab [Presence] in Serum by ImmunofluoOrdered By: Bartolome Amezquita on 01-30-2025 Inositol 1,4,5-trisphosphate receptor type 1 IgG Ab [Presence] in Serum by Immunofluo Inositol 1,4,5-trisphosphate receptor type 1 IgG Ab [Presence] in Serum by Immunofluo Negative [facility] Comment on above: This test was develo ped and its performance characteristicsdetermined by [employer]. It has not been cleared orapproved by the Food and Drug Administration. Leucine-rich glioma-inactiva dexter protein 1 IgG Ab [Presence] in Serum or Plasma by ImmOrdered By: Bartolome Amezquita on 01-30-2025 Leucine-rich glioma-inactivated protein 1 IgG IF Ql Leucine-rich glioma-inactivated protein 1 IgG Ab [Presence] in Serum or Plasma by Imm Negative [facility] Comment on above: This test was develo ped and its performance characteristicsdetermined by [facility]. It has not been cleared orapproved by the Food and Drug Administration.Performed at: [address] [id number] Director: Alfonso Pickens MD, Phone: [phone] Ma+Ta Ab [Presence] in Serum Ordered By: Bartolome Amezquita on 01-30-2025 Ma+Ta Ab Ql (S) Ma+Ta Ab [Presence] in Serum Negative [facility] Comment on above: This test was develo ped and its performance characteristicsdetermined by [employer]. It has not been cleared orapproved by the Food and Drug Administration. Metabotropic glutamate dental office receptionist tor 1 IgG Ab [Presence] in Serum by ImmunofluorescenceOrdered By: Bartolome Amezquita on 01-30-2025 Metabotropic glutamate receptor 1 IgG IF Ql (S) Metabotropic glutamate receptor 1 IgG Ab [Presence] in Serum by Immunofluorescence Negative [facility] Comment on above: This test was develo ped and its performance characteristicsdetermined by [employer]. It has not been cleared orapproved by the Food and Drug Administration. NMDAR subunit 1 Ab [Presence ] in Serum by ImmunofluorescenceOrdered By: Bartolome Amezquita on 01-30-2025 NMDAR subunit 1 Ab IF Ql (S) NMDAR subunit 1 Ab [Presence] in Serum by Immunofluorescence Negative [facility] Comment on above: This test was develo ped and its performance characteristicsdetermined by [facility]. It has not been cleared orapproved by the Food and Drug Administration. Neuronal nuclear Ab [Presenc e] in Serum by ImmunofluorescenceOrdered By: Bartolome Amezquita on 01-30-2025 Neuronal nuclear Ab IF Ql (S) Neuronal nuclear Ab [Presence] in Serum by Immunofluorescence Negative [facility] Comment on above: This test was develo ped and its performance characteristicsdetermined by [facility]. It has not been cleared orapproved by the Food and Drug Administration. Neuronal nuclear type 2 Ab [ Presence] in Serum by ImmunofluorescenceOrdered By: Bartolome Amezquita on 01-30-2025 Neuronal nuclear type 2 Ab IF Ql (S) Neuronal nuclear type 2 Ab [Presence] in Serum by Immunofluorescence Negative [facility] Comment on above: This test was develo ped and its performance characteristicsdetermined by [facility] [employer]. It has not been cleared orapproved by the Food and Drug Administration. Neuronal nuclear type 3 Ab [ Presence] in SerumOrdered By: Bartolome Amezquita on 01-30-2025 Neuronal nuclear type 3 Ab Ql (S) Neuronal nuclear type 3 Ab [Presence] in Serum Negative [facility] Comment on above: This test was develo ped and its performance characteristicsdetermined by [facility]. It has not been cleared orapproved by the Food and Drug Administration. No Panel InformationOrdered By: Bartolome Amezquita on 01-30-2025 Encephalopathy Autoimmune Interp Negative Negative [facility] Comment on above: No informative autoa ntibodies were detected. However, anegative result does not exclude idiopathic orparaneoplastic autoimmune encephalopathy. COMMUNITY RELATIONS OFFICER-1 Ab [Presence] in Serum by ImmunofluorescenceOrdered By: Bartolome Amezquita on 01-30-2025 COMMUNITY RELATIONS OFFICER-1 Ab IF Ql (S) COMMUNITY RELATIONS OFFICER-1 Ab [Presence] in Serum by Immunofluorescence Negative [facility] Comment on above: This test was develo ped and its performance characteristicsdetermined by [facility]. It has not been cleared orapproved by the Food and Drug Administration. COMMUNITY RELATIONS OFFICER-2 Ab [Presence] in Serum by ImmunofluorescenceOrdered By: Bartolome Amezquita on 01-30-2025 COMMUNITY RELATIONS OFFICER-2 Ab IF Ql (S) COMMUNITY RELATIONS OFFICER-2 Ab [Presence] in Serum by Immunofluorescence Negative [facility] Comment on above: This test was develo ped and its performance characteristicsdetermined by [facility]. It has not been cleared orapproved by the Food and Drug Administration. COMMUNITY RELATIONS OFFICER-Tr Ab [Presence] in Seru m by ImmunofluorescenceOrdered By: Bartolome Amezquita on 01-30-2025 COMMUNITY RELATIONS OFFICER-Tr Ab IF Ql (S) COMMUNITY RELATIONS OFFICER-Tr Ab [Presence] in Serum by Immunofluorescence Negative [facility] Comment on above: This test was develo ped and its performance characteristicsdetermined by [facility]. It has not been cleared orapproved by the Food and Drug Administration. Zinc finger protein of the c erebellum 4 Ab [Presence] in SerumOrdered By: Bartolome Amezquita on 01-30-2025 Zinc finger protein of the cerebellum 4 Ab Ql (S) Zinc finger protein of the cerebellum 4 Ab [Presence] in Serum Negative [facility] Comment on above: This test was develo ped and its performance characteristicsdetermined by [facility]. It has not been cleared orapproved by the Food and Drug Administration. Basic Metabolic Panelon Anion gap [Moles/Vol] Not performed Normal 6.0-15.0 [facility] Comment on above: Performed By: #### E RBMP #### [facility] [address] Point of Care testing , Calcium [Mass/Vol] 9.3 mg/dL Normal 8.6-10.3 [facility] Comment on above: Performed By: #### E RBMP #### [facility] [address] [place] [id number] [facility] Point of Care testing , Chloride [Moles/Vol] 99 mmol/L Normal 98-107 [facility] Comment on above: Performed By: #### E RBMP #### [facility] [address] [place] [id number] [facility] Point of Care testing , CO2 [Moles/Vol] 30.1 mmol/L Normal 21.0-31.0 [facility] Comment on above: Performed By: #### E RBMP #### [address] Point of Care testing , Creatinine [Mass/Vol] 0.73 mg/dL Normal 0.70-1.30 [facility] Comment on above: Performed By: #### E RBMP #### [address] Point of Care testing , Creatinine Clr Calc Pharmacy 70.06 Normal [facility] Comment on above: Result Comment: PERF ORMED BY: [place] [address] PATHOLOGIST ANIMAL CARE SERVICE WORKER ANURADHA GRANADOS M.D. Performed By: #### E RBMP #### [address] Point of Care testing , GFR/1.73 sq M.predicted MDRD (S/P/Bld) [Vol rate/Area] mL/min/{1.73_m2} Normal [facility] Comment on above: Performed By: #### E RBMP #### [address] Point of Care testing , Glucose [Mass/Vol] 95 mg/dL Normal 70-100 [facility] Comment on above: Result Comment: [place] Glucose Reference Range is dependent on time and content of last meal. Glucose of more than 200 mg/dL in a nonstressed, ambulatory subject supports the diagnosis of Diabetes Mellitus. ADA recommended reference range Performed By: #### E RBMP #### [address] Point of Care testing , Potassium Normal 3.5-5.1 [facility] Comment on above: Result Comment: Spec imen hemolyzed, redraw requested Performed By: #### E RBMP #### [address] Point of Care testing , Sodium [Moles/Vol] 139 mmol/L Normal 136-145 [facility] Comment on above: Performed By: #### E RBMP #### [address] [address] [place] Point of Care testing , Urea nitrogen [Mass/Vol] 28 mg/dL High 7-25 [facility] Comment on above: Performed By: #### [facility] #### [facility] [address] [place] [address] Point of Care testing , CT chest w conon 01-29-2025 CT chest w con [facility] [place] [address] [place] [address] CT Scan Report Signed Patient: Bailee Traore MR#: [id number] : 1945 Acct:[id number] Age/Sex: 79 / M ADM Date: 01/26/25 Loc: Room: [address] [place] [address] Type: ADM IN Attending Dr: Kofi Mauricio MD Copies to: DO Kofi Garcia MD Ordering Provider: Bartolome Amezquita DO Date of Service: 01/29/25 CT/CT chest w con: possible brain neoplasms ([id number]) CT/CT abdomen pelvis w con: possible brain neoplasms CT CHEST, ABDOMEN AND PELVIS WITH INTRAVENOUS CONTRAST: CLINICAL HISTORY: Metastatic workup, abnormal brain MRI COMPARISON: None TECHNIQUE: TECHNIQUE: Spiral images were obtained through the chest, abdomen and pelvis following the administration of IV contrast. This CT exam was performed using one or more following dose reduction techniques: Automated exposure control, adjustment of the mA and/or kV according to patient size, or use of iterative reconstruction technique. FINDINGS: CT chest: Mediastinum:Cardiomegaly with triple vessel coronary disease. Trace pericardial effusion. No bulky mediastinal or hilar adenopathy. Lungs:Emphysematous changes with bibasilar interstitial opacities likely chronic. No confluent airspace consolidation effusion or pneumothorax. Soft tissues/Bones: Compression fractures noted T3, T5 and T11 and T12. T3 and T5 could be subacute, difficult to say with certainty on the provided exam. CT abdomen and pelvis: Organs:Arm positioning degrades evaluation.[. Liver, spleen, adrenals, kidneys, and pancreas are unremarkable. Cholelithiasis.[ GI: Moderate material within the stomach with increased density, please correlate with recent congestion. Moderate retained stool rectosigmoid junction represent impaction and/or constipation. Otherwise no evidence of bowel obstruction. Colonic diverticulosis noted. Pelvis:[Pizano catheter within the collapsed bladder. Prostate is grossly unremarkable.] Peritoneum/Retroperitoneu m:Moderate plaque involving the aorta. The aorta to 2.8 cm in AP dimension.[ Abd wall/Bones:Multilevel compression deformities T12-L2 and L4-5.[These are favored to be chronic. Otherwise degenerative changes noted. Postsurgical changes right hip. CT/CT abdomen pelvis w con IMPRESSION: No definite evidence of metastatic disease or dominant mass lesion within the chest/abdomen/pelvis. High density material within the stomach, correlation with recent injection is strongly recommended. Multilevel compression deformities of the thoracolumbar spine as above with some of the thoracic levels possibly subacute in age, difficult to discern. Impression dictated by: Christiano Salinas M.D.01/29/2025 7:48 PM Dictation Location: [place] [address] Transcribed By: [facility] 01/29/251947 Dictated By: Christiano Salinas MD 01/29/251940 Signed By: 01/29/251947 Normal [facility] Calcium [Mass/volume] in Ser um or PlasmaOrdered By: Kofi Mauricio on 01-29-2025 Calcium [Mass/Vol] Calcium [Mass/volume ] in Serum or Plasma 8.6-10.3 [facility] Carbon dioxide, total [Moles /volume] in Serum or PlasmaOrdered By: Kofi Mauricio on 01-29-2025 CO2 [Moles/Vol] Carbon dioxide, tota l [Moles/volume] in Serum or Plasma 21.0-31.0 [facility] Chloride [Moles/volume] in S danielle or PlasmaOrdered By: Kofi Mauricio on 01-29-2025 Chloride [Moles/Vol] Chloride [Moles/vol ume] in Serum or Plasma 98-107 [facility] Creatinine [Mass/volume] in Serum or PlasmaOrdered By: Kofi Mauricio on 01-29-2025 Creatinine [Mass/Vol] Creatinine [Mass/v olume] in Serum or Plasma 0.70-1.30 [facility] Glucose [Mass/volume] in Ser um or PlasmaOrdered By: Kofi Mauricio on 01-29-2025 Glucose [Mass/Vol] Glucose [Mass/volume ] in Serum or Plasma 70-100 [facility] Comment on above: ADA recommended refe rence rangeRandom Glucose Reference Range is dependent on time and content of last meal. Glucose of more than 200 mg/dL in a nonstressed, ambulatory subject supports the diagnosis of Diabetes Mellitus. MR head/brain wo/w conon MR head/brain wo/w con [facility] [place] [address] [place] [address] MRI Report Signed Patient: Bailee Traore MR#: [id number] : 1945 Acct:[id number] Age/Sex: 79 / M ADM Date: 01/26/25 Loc: Room: [address] [place] [address] Type: ADM IN Attending Dr: Kofi Mauricio MD Copies to: DO Kofi Garcia MD Ordering Provider: Bartolome Amezquita DO Date of Service: 01/28/25 MR/MR head/brain wo/w con: R cerebral hemispheric vasogenic edema MRI BRAIN WITHOUT AND WITH INTRAVENOUS CONTRAST CLINICAL DATA: Left-sided facial droop, found down, left upper extremity tremor-like movement possible focal seizure, headache COMPARISON: CT head CTA and CT perfusion 01/26/2025 Multiecho, multiplanar imaging of the brain was performed before and after intravenous administration of 16 mL of ProHance. FINDINGS: There is predominantly cortical based restricted diffusion right parietal temporal lobe and involving the left parietal lobe. Within the right temporal lobe, there is gyral expansion and subcortical T2 prolongation suggestive of vasogenic edema. No evidence of abnormal enhancement identified. There is associated with mi nimal petechial blood products along the cortical margins . Similarly, there is a focus of subcortical T2 prolongation and gyral expansion along the left parasagittal frontal lobe pericallosal location also worrisome for vasogenic edema. Otherwise, mild generalized involutional changes. Moderate burden of periventricular and subcortical T2 prolongation suggestive of chronic small vessel ischemic disease. No shift of midline structures. Basal cisterns are patent. Major intracranial intravascular flow voids preserved. MR/MR head/brain wo/w con IMPRESSION: Predominantly cortical-based restricted diffusion right parietal occipital lobe and left parietal lobe. This can be seen in setting of seizure, hypoglycemia/metabolic, versus related to hypoxic injury. Right temporal lobe signal abnormality worrisome for low-grade glioma. An additional differential consideration would include cerebritis/encephalitis in the appropriate clinical setting.. Left parasagittal frontal T2 hyperintensity possibly sequelae of subcortical stroke versus additional focus of low-grade glioma versus gliomatosis cerebri Recommend short-term follow-up. Impression dictated by: Christiano Salinas M.D.01/29/2025 3:13 PM Dictation Location: [place] [address] Transcribed By: [facility] 01/29/25 1513 Dictated By: Christiano Salinas MD 01/29/25 1437 Signed By: 01/29/25 1513 Normal [facility] Magnetic resonance imaging r eportOrdered By: Christiano Salinas on 01-29-2025 Study report [facility] Main [place] [address] [place] [address] MRI Report Signed Patient: Bailee Traore MR#: [id number] : 1945 Acct:[id number] Age/Sex: 79 / M ADM Date: 5 Loc: Room: [address] [place] [address] Type: ADM IN Attending Dr: Kofi Mauricio MD Copies to: DO Kofi Garcia MD~ Ordering Provider: Bartolome Amezquita DO Date of Service: 01/28/25 MR/MR head/brain wo/w con: R cerebral hemispheric vasogenic edema MRI BRAIN WITHOUT AND WITH INTRAVENOUS CONTRAST CLINICAL DATA: Left-sided facial droop, found down, left upper extremity tremor-like movement possible focal seizure, headache COMPARISON: CT head CTA and CT perfusion 01/26/2025 Multiecho, multiplanar imaging of the brain was performed before and after intravenous administration of 16 mL of ProHance. FINDINGS: There is predominantly cortical based restricted diffusion right parietal temporal lobe and involving the left parietal lobe. Within the right temporal lobe, there is gyral expansion and subcortical T2 prolongation suggestive of vasogenic edema. No evidence of abnormal enhancementidentified. There is associated with minimal petechial blood products along thecortical margins . Similarly, there is a focus of subcortical T2 prolongation and gyral expansion along the left parasagittal frontal lobe pericallosal location also worrisome for vasogenic edema. Otherwise, mild generalized involutional changes. Moderate burden of periventricular and subcortical T2 prolongation suggestive of chronic small vessel ischemic disease. No shift of midline structures. Basal cisterns are patent. Major intracranial intravascular flow voids preserved. MR/MR head/brain wo/w con IMPRESSION: Predominantly cortical-based restricted diffusion right parietal occipital lobe and left parietal lobe. This can be seen in setting of seizure, hypoglycemia/metabolic, versus related to hypoxic injury. Right temporal lobe signal abnormality worrisome for low-grade glioma. An additional differential consideration would include cerebritis/encephalitis in the appropriate clinical setting.. Left parasagittal frontal T2 hyperintensity possibly sequelae of subcortical stroke versus additional focus of low-grade glioma versus gliomatosis cerebri Recommend short-term follow-up. Impression dictated by: Christiano Salinas M.D.01/29/2025 3:13 PM Dictation Location: [place] [address] Transcribed By: [facility] 01/29/25 1513 Dictated By: Christiano Salinas MD 01/29/25 1437 Signed By: 01/29/25 [facility] Work Phone: No Panel InformationOrdered By: Kofi Mauricio on 01-29-2025 Estimated GFR (CKD-EPI) > 60.0 mL/Min [facility] Creatinine Clearance (Chem 70.06 [facility] Potassium [Moles/volume] in Serum or PlasmaOrdered By: Kofi Mauricio on 01-29-2025 Potassium [Moles/Vol] Potassium [Moles/v olume] in Serum or Plasma 3.5-5.1 [facility] Redraw Potassiumon Potassium [Moles/Vol] 3.9 mmol/L Normal 3.5-5.1 [facility] Comment on above: Result Comment: PERF ORMED BY: [address] [place] [address] PATHOLOGIST ANIMAL CARE SERVICE WORKER ANURADHA GRANADOS M.D. Performed By: #### R LIANNA Hall #### [facility] [address] Serum or plasma anion gap de terminationOrdered By: Kofi Mauricio on 01-29-2025 Anion gap [Moles/Vol] Serum or plasma an ion gap determination [facility] Comment on above: Test not performed Sodium [Moles/volume] in Ser um or PlasmaOrdered By: Kofi Mauricio on 01-29-2025 Sodium [Moles/Vol] Sodium [Moles/volume ] in Serum or Plasma 136-145 [facility] Urea nitrogen [Mass/volume] in Serum or PlasmaOrdered By: Kofi Mauricio on 01-29-2025 Urea nitrogen [Mass/Vol] Urea nitrogen [Mass/volume] in Serum or Plasma High 7-25 [facility] Basic Metabolic Panelon 03 Anion gap [Moles/Vol] 10.4 mmol/L Normal 6.0-15.0 Th e [facility] Comment on above: Performed By: #### E RBMP #### [facility] [address] Point of Care testing , Calcium [Mass/Vol] 9.4 mg/dL Normal 8.6-10.3 [facility] Comment on above: Performed By: #### E RBMP #### [facility] [address] Point of Care testing , Chloride [Moles/Vol] 98 mmol/L Normal 98-107 [facility] Comment on above: Performed By: #### E RBMP #### [facility] [address] [place] [id number] [facility] Point of Care testing , CO2 [Moles/Vol] 33.8 mmol/L High 21.0-31.0 [facility] Comment on above: Performed By: #### E RBMP #### [facility] [address] [place] [id number] [facility] Point of Care testing , Creatinine [Mass/Vol] 0.87 mg/dL Normal 0.70-1.30 [facility] Comment on above: Performed By: #### E RBMP #### [address] Point of Care testing , Creatinine Clr Calc Pharmacy 64.43 Normal [facility] Comment on above: Result Comment: PERF ORMED BY: [place] [address] PATHOLOGIST ANIMAL CARE SERVICE WORKER ANURADHA GRANADOS M.D. Performed By: #### E RBMP #### [address] Point of Care testing , GFR/1.73 sq M.predicted MDRD (S/P/Bld) [Vol rate/Area] mL/min/{1.73_m2} Normal [facility] Comment on above: Performed By: #### E RBMP #### [address] Point of Care testing , Glucose [Mass/Vol] 109 mg/dL High 70-100 [facility] Comment on above: Result Comment: [facility] Glucose Reference Range is dependent on time and content of last meal. Glucose of more than 200 mg/dL in a nonstressed, ambulatory subject supports the diagnosis of Diabetes Mellitus. ADA recommended reference range Performed By: #### E RBMP #### [address] Point of Care testing , Potassium [Moles/Vol] 3.2 mmol/L Low 3.5-5.1 [facility] Comment on above: Performed By: #### E RBMP #### [address] Point of Care testing , Sodium [Moles/Vol] 139 mmol/L Normal 136-145 [facility] Comment on above: Performed By: #### E RBMP #### [address] Point of Care testing , Urea nitrogen [Mass/Vol] 21 mg/dL Normal 7-25 [facility] Comment on above: Performed By: #### E RBMP #### [address] Point of Care testing , Basophils Auto (Bld) [#/Vol] Ordered By: Bennett Navarro on 01-28-2025 Basophils (Bld) [#/Vol] Automated basophil count 0.0-0.2 [facility] Basophils/100 WBC Auto (Bld) Ordered By: Bennett Navarro on 01-28-2025 Basophils/100 WBC (Bld) Automated basophil % . [facility] Complete Blood Count Auto Di ffon 01-28-2025 Basophils (Bld) [#/Vol] 0.1 10*3/uL Normal 0.0-0.2 [facility] Comment on above: Result Comment: PERF ORMED BY: [place] [address] PATHOLOGIST ANIMAL CARE SERVICE WORKER ANURADHA GRANADOS M.D. Performed By: #### E RBMP #### [address] Point of Care testing , Basophils/100 WBC (Bld) 1.2 % Normal . [facility] Comment on above: Performed By: #### E RBMP #### [address] Point of Care testing , Eosinophils (Bld) [#/Vol] 0.1 10*3/uL Normal 0.0-0.45 [facility] Comment on above: Performed By: #### E RBMP #### [address] Point of Care testing , Eosinophils/100 WBC (Bld) 2.0 % Normal . [facility] Comment on above: Performed By: #### E RBMP #### [address] Point of Care testing , Erythrocyte distribution width (RBC) [Ratio] 14.1 % Normal 12.0-14.8 [facility] Comment on above: Performed By: #### E RBMP #### [address] Point of Care testing , Hematocrit (Bld) [Volume fraction] 44.4 % Normal 38.8-50.0 [facility] Comment on above: Performed By: #### E RBMP #### [address] Point of Care testing , Hemoglobin (Bld) [Mass/Vol] 15.1 g/dL Normal 13.0-17.0 [facility] Comment on above: Performed By: #### E RBMP #### [address] Point of Care testing , Lymphocytes (Bld) [#/Vol] 1.8 10*3/uL Normal 1.00-4.8 [facility] Comment on above: Performed By: #### E RBMP #### [address] Point of Care testing , Lymphocytes/100 WBC (Bld) 27.6 % Normal . [facility] Comment on above: Performed By: #### E RBMP #### [address] Point of Care testing , MCH (RBC) [Entitic mass] 29.1 pg Normal 27.5-35.2 [facility] Comment on above: Performed By: #### E RBMP #### [address] Point of Care testing , MCV (RBC) [Entitic vol] 85.6 fL Normal 83.5-101 T he [facility] Comment on above: Performed By: #### E RBMP #### [address] Point of Care testing , Mean Corpuscular HGB Conc 34.0 g/dL Normal 32.5-35.6 [facility] Comment on above: Performed By: #### E RBMP #### [address] Point of Care testing , Monocytes (Bld) [#/Vol] 0.7 10*3/uL Normal 0.0-0.8 [facility] Comment on above: Performed By: #### E RBMP #### [facility] [address] Point of Care testing , Monocytes/100 WBC (Bld) 11.6 % Normal . T he [facility] Comment on above: Performed By: #### E RBMP #### [facility] [address] [place] [address] Point of Care testing , Neutrophils (Bld) [#/Vol] 3.7 10*3/uL Normal 1.8-7.7 [facility] Comment on above: Performed By: #### E RBMP #### [address] Point of Care testing , Neutrophils/100 WBC (Bld) 57.6 % Normal . [facility] Comment on above: Performed By: #### E RBMP #### [address] Point of Care testing , NRBC% 0.1 /100{WBC} Normal 0-0.5 [facility] Comment on above: Performed By: #### E RBMP #### [address] Point of Care testing , Platelet mean volume (Bld) [Entitic vol] 8.3 fL Normal 6.6-10.1 [facility] Comment on above: Performed By: #### E RBMP #### [address] Point of Care testing , Platelets (Bld) [#/Vol] 162 10*3/uL Normal 150-450 [facility] Comment on above: Performed By: #### E RBMP #### [address] Point of Care testing , RBC (Bld) [#/Vol] 5.18 10*6/uL Normal 3.90-5.60 [facility] Comment on above: Performed By: #### E RBMP #### [address] Point of Care testing , WBC (Bld) [#/Vol] 6.4 10*3/uL Normal 4.1-10.5 [facility] Comment on above: Performed By: #### E [facility] #### [place] [id number] [facility] Point of Care testing , [facility] echo transthoracicon [facility] echo transthoracic [facility] Main [place] [address] [place] [id number] Echocardiogram Signed Patient: Bailee Traore MR#: [id number] : 1945 Acct:[id number] Age/Sex: 79 / M ADM Date: 01/26/25 Loc: Room: [address] [place] [address] Type: ADM IN Attending Dr: Kofi Mauricio MD Ordering Provider: Bennett Navarro MD Date of Service: 01/26/2512/22/1704 [facility] echo transthoracic: Pulmonary edema, stroke Copies to: MD Jayme Magana MD Weight: 175 lb Performed By: RAPHAEL Moore BSA: 1.9 m2 BP: 130/103 mmHg HR: 72 Reason For Study: Pulmonary edema, stroke History: HTN. Former Smoker. Interpretation Summary Ejection Fraction = 50-55%. The LV ejection fraction is low normal . Mild to moderate concentric left ventricular hypertrophy. The left ventricular wall motion is normal. A variety of Doppler measurements indicate normal left ventricular diastolic function. There is no comparison study available. Procedure/Quality: A two-dimensional transthoracic echocardiogram with color flow, Doppler and injection of contrast agent Definity was performed. The study was technically fair in quality. Left Ventricle: The left ventricular size is normal. Mild to moderate concentric left ventricular hypertrophy. Ejection Fraction = 50-55%. The LV ejection fraction is low normal . A variety of Doppler measurements indicate normal left ventricular diastolic function. The left ventricular wall motion is normal. Left Atrium: The left atrium appears normal in size. No bubble study. Right Atrium: The right atrium appears normal in size. Right Ventricle: The right ventricle is normal in size and function. Aortic Valve: The aortic valve is mildly calcified. No hemodynamically significant valvular aortic stenosis. No aortic regurgitation is present. Mitral Valve: The mitral valve is normal in structure. No significant mitral valve stenosis. There is no mitral regurgitation noted. Tricuspid Valve: The tricuspid valve is normal in structure. No tricuspid regurgitation. Pulmonic Valve: The pulmonic valve is not well visualized. Arteries: Borderline aortic root dilatation. Pericardium/Pleura: No pericardial effusion seen. IVC/Hepatic Veins: The inferior vena cava is normal in size, with a normal collapsibility index. Measurements with Normals IVSd: 1.5 cm (0.7-1.1 cm)LVIDd: 4.8 cm (3.7-5.4 cm) LVPWd: 1.4 cm (0.7-1.1 cm)LVIDs: 4.2 cm (2.3-3.6 cm) LA dimension: 3.6 cm (2.3-4.0 cm)Ao root diam: 3.7 cm(2.0-3.6 cm) asc Aorta Diam: 3.2 cm(2.1-3.4cm) Doppler with Normals RVSP(TR): 21.4 mmHg (18-35mmHg) LV V1 max: 118.4 cm/sec (0.7-1.7m/s)MV E max miranda: 45.4 cm/sec(0.8-1.3m/s) MV A max miranda: 61.3 cm/sec(0.0-0.0m/s) MV E/A: 0.74 (<1.5) MMode/2D Measurements Calculations TAPSE: 1.2 cm FS: 12.0 % Ao root area: LVOT diam: 2.0 cm RV S Miranda: EDV(Teich): 10.6 cm2 LVOT area: 3.2 cm2 18.7 cm/sec 106.5 ml ESV(Teich): 78.9 ml EF(Teich): 25.9 % __ LVLd ap4: 6.4 cm SV(MOD-sp4): LAV(MOD-sp4): LA A2 area: 15.7 cm2 EDV(MOD-sp4): 39.4 ml 40.7 ml 69.8 ml LAV(MOD-sp2): LA A4 area: 14.5 cm2 LVLs ap4: 5.7 cm 41.7 ml LA length (vol): ESV(MOD-sp4): 3.9 cm 30.5 ml LA vol: 49.9 ml EF(MOD-sp4): 56.4 % LA vol index: 25.9 ml/m2 Doppler Measurements Calculations MV dec time: MV V2 max: E/E' lat: 11.3 MV dec slope: 0.17 sec 60.4 cm/sec E/E' med: 10.7 MV max P.5 mmHg 273.0 cm/sec2 MV V2 mean: 34.5 cm/sec MV mean P.56 mmHg MV V2 VTI: 14.7 cm MVA(VTI): 4.6 cm2 __ Ao V2 max: LV V1 max PG: TV max PG: TR max miranda: 106.9 cm/sec 5.6 mmHg 18.0 mmHg 214.5 cm/sec Ao max P.6 mmHg LV V1 mean PG: TR max P.4 mmHg Ao mean P.8 mmHg RAP systole: 3.0 mmHg 2.8 mmHg LV V1 mean: Ao V2 mean: 78.7 cm/sec 79.7 cm/sec LV V1 VTI: 21.2 cm Ao V2 VTI: 22.7 cm MANOJ(I,D): 3.0 cm2 MANOJ(V,D): 3.5 cm2 ___ Transcribed By: ARUN Performed At: 01/28/25 0906 Signed By: Jayme Pearce MD 01/28/25 1039 Normal [facility] Eosinophils Auto (Bld) [#/Vo l]Ordered By: Bennett Navarro on 01-28-2025 Eosinophils (Bld) [#/Vol] Automated eosi nophil count 0.0-0.45 [facility] Eosinophils/100 WBC Auto (Bl d)Ordered By: Bennett Navarro on 01-28-2025 Eosinophils/100 WBC (Bld) Automated eosinophil % . [facility] Erythrocyte distribution wid th Auto (RBC) [Ratio]Ordered By: Bennett Navarro on 01-28-2025 Erythrocyte distribution width (RBC) [Ratio] Erythrocyte distribution width [Ratio] by Automated count 12.0-14.8 [facility] Hematocrit Auto (Bld) [Volum e fraction]Ordered By: Bennett Navarro on 01-28-2025 Hematocrit (Bld) [Volume fraction] Hematocrit [Volume Fraction] of Blood by Automated count 38.8-50.0 [facility] Hemoglobin [Mass/volume] in BloodOrdered By: Bennett Navarro on 01-28-2025 Hemoglobin (Bld) [Mass/Vol] Hemoglobin [Mass/volume] in Blood 13.0-17.0 [facility] Leukocytes [#/volume] correc dexter for nucleated erythrocytes in Blood by Automated counOrdered By: Bennett Navarro on 01-28-2025 WBC corrected for nucl RBC Auto (Bld) [#/Vol] Leukocytes [#/volume] corrected for nucleated erythrocytes in Blood by Automated coun 4.1-10.5 [facility] Lymphocytes Auto (Bld) [#/Vo l]Ordered By: Bennett Navarro on 01-28-2025 Lymphocytes (Bld) [#/Vol] Lymphocytes [# /volume] in Blood by Automated count 1.00-4.8 [facility] Lymphocytes/100 WBC Auto (Bl d)Ordered By: Bennett Navarro on 01-28-2025 Lymphocytes/100 WBC (Bld) Lymphocytes/10 0 leukocytes in Blood by Automated count . [facility] MCH Auto (RBC) [Entitic mass ]Ordered By: Bennett Navarro on 01-28-2025 MCH (RBC) [Entitic mass] MCH [Entitic ma ss] by Automated count 27.5-35.2 [facility] MCHC Auto (RBC) [Mass/Vol]Or dered By: Bennett Navarro on 01-28-2025 MCHC (RBC) [Mass/Vol] MCHC [Mass/volume] by Automated count 32.5-35.6 [facility] MCV Auto (RBC) [Entitic vol] Ordered By: Bennett Navarro on 01-28-2025 MCV (RBC) [Entitic vol] MCV [Entitic vol ume] by Automated count 83.5-101 [facility] Monocytes Auto (Bld) [#/Vol] Ordered By: Bennett Navarro on 01-28-2025 Monocytes (Bld) [#/Vol] Automated blood monocyte count 0.0-0.8 [facility] Monocytes/100 WBC Auto (Bld) Ordered By: Bennett Navarro on 01-28-2025 Monocytes/100 WBC (Bld) Automated monocyte % . [facility] Neutrophils Auto (Bld) [#/Vo l]Ordered By: Bennett Navarro on 01-28-2025 Neutrophils (Bld) [#/Vol] Neutrophils [# /volume] in Blood by Automated count 1.8-7.7 [facility] Neutrophils/100 WBC Auto (Bl d)Ordered By: Bennett Navarro on 01-28-2025 Neutrophils/100 WBC (Bld) Automated neutrophil % . [facility] Nucleated erythrocytes [Pres ence] in Blood by Automated countOrdered By: Bennett Navarro on 01-28-2025 Nucleated RBC Auto Ql (Bld) Nucleated erythrocytes [Presence] in Blood by Automated count 0-0.5 [facility] Platelet mean volume Auto (B ld) [Entitic vol]Ordered By: Bennett Navarro on 01-28-2025 Platelet mean volume (Bld) [Entitic vol] Platelet mean volume [Entitic volume] in Blood by Automated count 6.6-10.1 [facility] Platelets Auto (Bld) [#/Vol] Ordered By: Bennett Navarro on 01-28-2025 Platelets (Bld) [#/Vol] Platelets [#/vol ume] in Blood by Automated count 150-450 [facility] RBC Auto (Bld) [#/Vol]Ordere d By: Bennett Navarro on 01-28-2025 RBC (Bld) [#/Vol] Erythrocytes [#/volu me] in Blood by Automated count 3.90-5.60 [facility] WBC Auto (Bld) [#/Vol]Ordere d By: Bennett Navarro on 01-28-2025 WBC (Bld) [#/Vol] Leukocytes [#/volume ] in Blood by Automated count 4.1-10.5 [facility] A1C with Estimated Average G luon 01-27-2025 Glucose [Mass/Vol] 123 mg/dL Normal [facility] Comment on above: Result Comment: PERF ORMED BY: [place] [address] PATHOLOGIST ANIMAL CARE SERVICE WORKER ANURADHA GRANADOS M.D. Performed By: #### C BC #### [facility] [address] [place] [address] HbA1c (Bld) [Mass fraction] 5.9 % High 4.3-5.6 [facility] Comment on above: Result Comment: Incr eased risk for diabetes: 5.7 - 6.4 diabetes: >6.4 glycemic control for adults with diabetes: <7.0 Performed By: #### C BC #### [facility] [address] [place] [address] Alanine aminotransferase [En zymatic activity/volume] in Serum or PlasmaOrdered By: Bennett Navarro on 01-27-2025 ALT [Catalytic activity/Vol] Alanine aminotransferase [Enzymatic activity/volume] in Serum or Plasma 7-52 [facility] Albumin [Mass/volume] in Ser um or Plasma by Bromocresol green (BCG) dye binding methoOrdered By: Bennett Navarro on 01-27-2025 Albumin BCG dye [Mass/Vol] Albumin [Mass/volume] in Serum or Plasma by Bromocresol green (BCG) dye binding metho 3.5-5.7 [facility] Alkaline phosphatase [Enzyma tic activity/volume] in Serum or PlasmaOrdered By: Bennett Navarro on 01-27-2025 ALP [Catalytic activity/Vol] Alkaline phosphatase [Enzymatic activity/volume] in Serum or Plasma 34-104 [facility] Aspartate aminotransferase [ Enzymatic activity/volume] in Serum or PlasmaOrdered By: Bennett Navarro on 03-02-2025 AST [Catalytic activity/Vol] Aspartate aminotransferase [Enzymatic activity/volume] in Serum or Plasma 13-39 [facility] Bilirubin.total [Mass/volume ] in Serum or PlasmaOrdered By: Bennett Navarro on 01-27-2025 Bilirubin [Mass/Vol] Bilirubin.total [Mass/volume] in Serum or Plasma High 0.3-1.0 [facility] Blood estimated average gluc ose determination by estimation from glycated hemoglobinOrdered By: Bennett Navarro on 01-27-2025 Average glucose Estimated from glycated hemoglobin (Bld) [Mass/Vol] Glucose mean value [Mass/volume] in Blood Estimated from glycated hemoglobin [facility] Cholesterol [Mass/volume] in Serum or PlasmaOrdered By: Bennett Navarro on 01-27-2025 Cholesterol [Mass/Vol] Cholesterol [Mass /volume] in Serum or Plasma 140-200 [facility] Comment on above: Chol less than 200 m g/dl low riskChol 201-239 mg/dl borderline riskChol 240 mg/dl and greater high risk Cholesterol in HDL [Mass/vol ume] in Serum or PlasmaOrdered By: Bennett Navarro on 01-27-2025 Cholesterol in HDL [Mass/Vol] Serum or plasma high density lipoprotein (HDL) cholesterol measurement 23-92 [facility] Comment on above: HDL CHOL ATP-III CLA SSIFICATION Cardiovascular RiskHDL > or equal to 60 mg/dL LOWHDL < 40 mg/dL HIGH Cholesterol in LDL Calc [Mas s/Vol]Ordered By: Bennett Navarro on 01-27-2025 Cholesterol in LDL [Mass/Vol] Cholesterol in LDL [Mass/volume] in Serum or Plasma by calculation 0-100 [facility] Comment on above: LDL ATP III CLASSIFI CATIONLDL less than 100 mg/dL OptimalLDL 100-129 mg/dL Near or above optimalLDL 130-159 mg/dL Borderline highLDL 160-189 mg/dL HighLDL greater than 189 mg/dL Very high Cholesterol in VLDL Calc [Ma ss/Vol]Ordered By: Bennett Navarro on 01-27-2025 Cholesterol in VLDL [Mass/Vol] Cholesterol in VLDL [Mass/volume] in Serum or Plasma by calculation [facility] Complete Blood Count Auto Di ffon 01-27-2025 Basophils (Bld) [#/Vol] 0.1 10*3/uL Normal 0.0-0.2 [facility] Comment on above: Result Comment: PERF ORMED BY: [place] [address] PATHOLOGIST ANIMAL CARE SERVICE WORKER ANURADHA GRANADOS M.D. Performed By: #### E RBMP #### [address] Point of Care testing , Basophils/100 WBC (Bld) 0.7 % Normal . [facility] Comment on above: Performed By: #### E RBMP #### [address] Point of Care testing , Eosinophils (Bld) [#/Vol] 0.0 10*3/uL Normal 0.0-0.45 [facility] Comment on above: Performed By: #### E RBMP #### [address] Point of Care testing , Eosinophils/100 WBC (Bld) 0.2 % Normal . [facility] Comment on above: Performed By: #### E RBMP #### [address] Point of Care testing , Erythrocyte distribution width (RBC) [Ratio] 14.2 % Normal 12.0-14.8 [facility] Comment on above: Performed By: #### E RBMP #### [address] Point of Care testing , Hematocrit (Bld) [Volume fraction] 42.6 % Normal 38.8-50.0 [facility] Comment on above: Performed By: #### E RBMP #### [address] Point of Care testing , Hemoglobin (Bld) [Mass/Vol] 14.8 g/dL Normal 13.0-17.0 [facility] Comment on above: Performed By: #### E RBMP #### [address] Point of Care testing , Lymphocytes (Bld) [#/Vol] 2.0 10*3/uL Normal 1.00-4.8 [facility] Comment on above: Performed By: #### E RBMP #### [address] Point of Care testing , Lymphocytes/100 WBC (Bld) 26.1 % Normal . [facility] Comment on above: Performed By: #### E RBMP #### [address] Point of Care testing , MCH (RBC) [Entitic mass] 29.6 pg Normal 27.5-35.2 [facility] Comment on above: Performed By: #### E RBMP #### [address] Point of Care testing , MCV (RBC) [Entitic vol] 85.4 fL Normal 83.5-101 [facility] Comment on above: Performed By: #### E RBMP #### [address] Point of Care testing , Mean Corpuscular HGB Conc 34.7 g/dL Normal 32.5-35.6 [facility] Comment on above: Performed By: #### E RBMP #### [address] Point of Care testing , Monocytes (Bld) [#/Vol] 1.0 10*3/uL High 0.0-0.8 [facility] Comment on above: Performed By: #### E RBMP #### [address] Point of Care testing , Monocytes/100 WBC (Bld) 12.5 % Normal . [facility] Comment on above: Performed By: #### E RBMP #### [address] Point of Care testing , Neutrophils (Bld) [#/Vol] 4.7 10*3/uL Normal 1.8-7.7 [facility] Comment on above: Performed By: #### E RBMP #### [address] Point of Care testing , Neutrophils/100 WBC (Bld) 60.5 % Normal . [facility] Comment on above: Performed By: #### E RBMP #### [address] Point of Care testing , NRBC% 0.1 /100{WBC} Normal 0-0.5 [facility] Comment on above: Performed By: #### E RBMP #### [address] Point of Care testing , Platelet mean volume (Bld) [Entitic vol] 7.8 fL Normal 6.6-10.1 [facility] Comment on above: Performed By: #### E RBMP #### [address] Point of Care testing , Platelets (Bld) [#/Vol] 182 10*3/uL Normal 150-450 [facility] Comment on above: Performed By: #### E RBMP #### [address] Point of Care testing , RBC (Bld) [#/Vol] 4.99 10*6/uL Normal 3.90-5.60 [facility] Comment on above: Performed By: #### E RBMP #### [address] Point of Care testing , WBC (Bld) [#/Vol] 7.7 10*3/uL Normal 4.1-10.5 [facility] Comment on above: Performed By: #### E RBMP #### [address] Point of Care testing , Comprehensive Metabolic Pane chuy 01-27-2025 Albumin [Mass/Vol] 4.1 g/dL Normal 3.5-5.7 [facility] Comment on above: Order Comment: FASTI NG Y Performed By: #### E RBMP #### [facility] [address] [place] [address] Point of Care testing , Albumin/Globulin [Mass ratio] 1.1 {ratio} Normal [facility] Comment on above: Order Comment: FASTI NG Y Performed By: #### E RBMP #### [address] Point of Care testing , ALP [Catalytic activity/Vol] 104 U/L Normal 34-104 [facility] Comment on above: Order Comment: FASTI NG Y Performed By: #### E RBMP #### [facility] [address] [place] [address] Point of Care testing , ALT [Catalytic activity/Vol] 13 U/L Normal 7-52 [facility] Comment on above: Order Comment: FASTI NG Y Performed By: #### E RBMP #### [address] Point of Care testing , Anion gap [Moles/Vol] 14.0 mmol/L Normal 6.0-15.0 [facility] Comment on above: Order Comment: FASTI NG Y Performed By: #### E RBMP #### [address] Point of Care testing , AST [Catalytic activity/Vol] 30 U/L Normal 13-39 [facility] Comment on above: Order Comment: FASTI NG Y Performed By: #### E RBMP #### [facility] [address] [place] [address] Point of Care testing , Bilirubin [Mass/Vol] 1.1 mg/dL High 0.3-1.0 [facility] Comment on above: Order Comment: FASTI NG Y Performed By: #### E RBMP #### [address] Point of Care testing , Calcium [Mass/Vol] 9.3 mg/dL Normal 8.6-10.3 [facility] Comment on above: Order Comment: FASTI NG Y Performed By: #### E RBMP #### [place] [id number] [place] Point of Care testing , Chloride [Moles/Vol] 101 mmol/L Normal 98-107 [facility] Comment on above: Order Comment: FASTI NG Y Performed By: #### E RBMP #### [address] Point of Care testing , CO2 [Moles/Vol] 32.2 mmol/L High 21.0-31.0 [facility] Comment on above: Order Comment: FASTI NG Y Performed By: #### E RBMP #### [address] Point of Care testing , Creatinine [Mass/Vol] 0.84 mg/dL Normal 0.70-1.30 [facility] Comment on above: Order Comment: FASTI NG Y Performed By: #### E RBMP #### [address] Point of Care testing , Creatinine Clr Calc Pharmacy 66.73 Normal [facility] Comment on above: Order Comment: FASTI NG Y Performed By: #### E RBMP #### [address] Point of Care testing , GFR/1.73 sq M.predicted MDRD (S/P/Bld) [Vol rate/Area] mL/min/{1.73_m2} Normal [facility] Comment on above: Order Comment: FASTI NG Y Performed By: #### E RBMP #### [address] Point of Care testing , Globulin (S) [Mass/Vol] 3.8 g/dL Normal T he [facility] Comment on above: Order Comment: FASTI NG Y Performed By: #### E RBMP #### [address] Point of Care testing , Glucose [Mass/Vol] 119 mg/dL High 70-100 [facility] Comment on above: Order Comment: FASTI NG Y Result Comment: [facility] Glucose Reference Range is dependent on time and content of last meal. Glucose of more than 200 mg/dL in a nonstressed, ambulatory subject supports the diagnosis of Diabetes Mellitus. ADA recommended reference range Performed By: #### E RBMP #### [facility] [address] [place] [address] Point of Care testing , Potassium [Moles/Vol] 3.2 mmol/L Low 3.5-5.1 [facility] Comment on above: Order Comment: FASTI NG Y Performed By: #### E RBMP #### [address] Point of Care testing , Protein [Mass/Vol] 7.9 g/dL Normal 6.4-8.9 [facility] Comment on above: Order Comment: FASTI NG Y Performed By: #### E RBMP #### [address] Point of Care testing , Sodium [Moles/Vol] 144 mmol/L Normal 136-145 [facility] Comment on above: Order Comment: FASTI NG Y Performed By: #### E RBMP #### [address] Point of Care testing , Urea nitrogen [Mass/Vol] 13 mg/dL Normal 7-25 [facility] Comment on above: Order Comment: FASTI NG Y Performed By: #### E RBMP #### [address] Point of Care testing , Globulin Calc (S) [Mass/Vol] Ordered By: Bennett Navarro on 01-27-2025 Globulin (S) [Mass/Vol] Serum globulin measurement by calculation (mass/volume) [facility] Hemoglobin A1c/Hemoglobin.to byron in BloodOrdered By: Bennett Navarro on 01-27-2025 HbA1c (Bld) [Mass fraction] Hemoglobin A1c percentage High 4.3-5.6 [facility] Comment on above: Increased risk for d iabetes: 5.7 - 6.4diabetes: >6.4glycemic control for adults with diabetes: <7.0 INR in Platelet poor plasma by Coagulation assayOrdered By: Bennett Navarro on 01-27-2025 INR Coag (PPP) [Relative time] INR in Platelet poor plasma by Coagulation assay [facility] Comment on above: INR Therapeutic Rang e A) Pre- and Peroperative OAT started two weeks before surgery. NOT HIP SURGERY: 1.5 - 2.5 HIP SURGERY: 2 - 3B) Primary and secondary prevention of venous THROMBOSIS: 2 - 3C) Active venous thrombosis, pulmonary embolismand prevention of recurrent venous thrombosis: 2 - 3D) Prevention of arterial thromboembolismincluding patients with mechanical heart valves: 3 - 4.5 Lipid Panelon 01-27-2025 Cholesterol [Mass/Vol] 158 mg/dL Normal 140-200 Th e [facility] Comment on above: Order Comment: FASTI NG Y Result Comment: Chol less than 200 mg/dl low risk Chol 201-239 mg/dl borderline risk Chol 240 mg/dl and greater high risk Performed By: #### E RBMP #### [facility] [address] [place] [address] Point of Care testing , Cholesterol in HDL [Mass/Vol] 56 mg/dL Normal 23-92 [facility] Comment on above: Order Comment: FASTI NG Y Result Comment: HDL CHOL ATP-III CLASSIFICATION Cardiovascular Risk HDL > or equal to 60 mg/dL LOW HDL < 40 mg/dL HIGH Performed By: #### E RBMP #### [address] Point of Care testing , Cholesterol.total/Cholest sheron in HDL [Mass ratio] 2.8 {ratio} Normal <5.0 [facility] Comment on above: Order Comment: FASTI NG Y Result Comment: PERF ORMED BY: [place] [address] PATHOLOGIST ANIMAL CARE SERVICE WORKER ANURADHA GRANADOS M.D. Performed By: #### E RBMP #### [facility] [address] [place] [address] Point of Care testing , LDL Cholesterol,Calculated 87 mg/dL Normal 0-100 [facility] Comment on above: Order Comment: FASTI NG Y Result Comment: LDL ATP III CLASSIFICATION LDL less than 100 mg/dL Optimal LDL 100-129 mg/dL Near or above optimal LDL 130-159 mg/dL Borderline high LDL 160-189 mg/dL High LDL greater than 189 mg/dL Very high Performed By: #### E RBMP #### [facility] [address] [place] [id number] [facility] Point of Care testing , Triglyceride w/Reflex 73 mg/dL Normal 0-149 [facility] Comment on above: Order Comment: FASTI NG Y Result Comment: TRIG ATP III CLASSIFICATION TRIG less than 150 mg/dL Normal TRIG 150-199 mg/dL Borderline high TRIG 200-500 mg/dL High TRIG greater than 500 mg/dL Very high Standard traceable to the Center for Disease Conrtrol and Prevention (CDC) test method. Performed By: #### E RBMP #### [facility] [address] Point of Care testing , VLDL CHOLESTEROL 14 mg/dL Normal [facility] Comment on above: Order Comment: FASTI NG Y Performed By: #### E RBMP #### [facility] [address] [place] [id number] [facility] Point of Care testing , Partial Thromboplastin Timeo n 01-27-2025 aPTT Coag (Bld) [Time] 36.3 s Normal 25.1-36.5 Th e [facility] Comment on above: Result Comment: A he matocrit value greater than 55% may lead to inaccurate results in coagulation testing. Patients having hematocrit values >55% require a special collection tube for coagulation studies. Please contact the laboratory at [phone] for redraw instructions. PERFORMED BY: [address] [place] [address] PATHOLOGIST ANIMAL CARE SERVICE WORKER ANURADHA GRANADOS M.D. Performed By: #### E RBMP #### [facility] [address] [place] [id number] [facility] Point of Care testing , Protein [Mass/volume] in Ser um or PlasmaOrdered By: Bennett Navarro on 01-27-2025 Protein [Mass/Vol] Protein [Mass/volume ] in Serum or Plasma 6.4-8.9 [facility] Prothrombin Time INRon 01-27 INR Coag (PPP) [Relative time] 1.1 {INR} Normal [facility] Comment on above: Result Comment: INR Therapeutic Range A) Pre- and Peroperative OAT started two weeks before surgery. NOT HIP SURGERY: 1.5 - 2.5 HIP SURGERY: 2 - 3 B) Primary and secondary prevention of venous THROMBOSIS: 2 - 3 C) Active venous thrombosis, pulmonary embolism and prevention of recurrent venous thrombosis: 2 - 3 D) Prevention of arterial thromboembolism including patients with mechanical heart valves: 3 - 4.5 Performed By: #### E RBMP #### [facility] [address] Point of Care testing , PT Coag (PPP) [Time] 12.2 s Normal 9.0-12.9 [facility] Comment on above: Result Comment: A he matocrit value greater than 55% may lead to inaccurate results in coagulation testing. Patients having hematocrit values >55% require a special collection tube for coagulation studies. Please contact the laboratory at [phone] for redraw instructions. Performed By: #### E RBMP #### [facility] [address] [place] [id number] [facility] Point of Care testing , Prothrombin time (PT)Ordered By: Bennett Navarro on 01-27-2025 PT Coag (PPP) [Time] Prothrombin time (PT) 9.0- 12.9 [facility] Comment on above: A hematocrit value g reater than 55% may lead to inaccurate results in coagulation testing. Patients having hematocrit values >55% require a special collection tube for coagulation studies. Please contact the laboratory at [phone] for redraw instructions. Serum or plasma albumin/glob ulin mass ratioOrdered By: Bennett Navarro on 01-27-2025 Albumin/Globulin [Mass ratio] Serum or plasma albumin/globulin mass ratio [facility] Serum or plasma total choles terol/high density lipoprotein (HDL) cholesterol mass ratOrdered By: Bennett Navarro on 01-27-2025 Cholesterol.total/Cholest sheron in HDL [Mass ratio] Serum or plasma total cholesterol/high density lipoprotein (HDL) cholesterol mass rat <5.0 [facility] Triglyceride [Mass/volume] i n Serum or PlasmaOrdered By: Bennett Navarro on 01-27-2025 Triglyceride [Mass/Vol] Triglyceride [Mass/volume] in Serum or Plasma 0-149 [facility] Comment on above: TRIG ATP III CLASSIF ICATIONTRIG less than 150 mg/dL NormalTRIG 150-199 mg/dL Borderline highTRIG 200-500 mg/dL High TRIG greater than 500 mg/dL Very highStandard traceable to the Center for Disease Conrtrol and Prevention (CDC) test method. X-ray reportOrdered By: Darell Combs on 01-27-2025 Study report [facility] Main [place] [id number] XRay Report Signed Patient: Bailee Traore MR#: [id number] : 1945 Acct:[id number] Age/Sex: 79 / M ADM Date: 5 Loc: Room: [address] [place] [address] Type: ADM IN Attending Dr: Bennett Navarro MD Copies to: Bennett Navarro MD~ Ordering Provider: Bennett Navarro MD Date of Service: 01/27/25 XR/XR chest 2V*: Volume overload Chest 2 views CLINICAL HISTORY: Volume overload. COMPARISON: Chest 01/26/2025 FINDINGS: Heart and mediastinal structures appear unchanged. Chronic interstitial changessimilar to the prior study. The degree of vascular congestion has improved. Nopneumothorax or free air. XR/XR chest 2V* IMPRESSION: THE DEGREE OF VASCULAR CONGESTION HAS IMPROVED WITH CHRONIC INTERSTITIAL CHANGESSTILL REMAINING. NO CONSOLIDATION TO SUGGEST PNEUMONIA. Impression dictated by: Omkar Combs Jr., D.OYuni01/27/2025 11:24 AM Dictation Location: [place] [address] Transcribed By: [facility] 01/27/25 1124 Dictated By: Omkar Combs Jr, DO 01/27/25 1123 Signed By: 01/27/25 1124 [facility] XR chest 2V*on 01-27-2025 XR chest 2V* [facility] Main [address] [address] XRay Report Signed Patient: Bailee Traore MR#: [id number] : 1945 Acct:[id number] Age/Sex: 79 / M ADM Date: 01/26/25 Loc: Room: [address] [place] [address] Type: ADM IN Attending Dr: Bennett Navarro MD Copies to: Bennett Navarro MD Ordering Provider: Bennett Navarro MD Date of Service: 01/27/25 XR/XR chest 2V*: Volume overload Chest 2 views CLINICAL HISTORY: Volume overload. COMPARISON: Chest 01/26/2025 FINDINGS: Heart and mediastinal structures appear unchanged. Chronic interstitial changes similar to the prior study. The degree of vascular congestion has improved. No pneumothorax or free air. XR/XR chest 2V* IMPRESSION: THE DEGREE OF VASCULAR CONGESTION HAS IMPROVED WITH CHRONIC INTERSTITIAL CHANGES STILL REMAINING. NO CONSOLIDATION TO SUGGEST PNEUMONIA. Impression dictated by: Omkar Combs Jr., D.OYuni01/27/2025 11:24 AM Dictation Location: [place] [address] Transcribed By: [facility] 01/27/25 1124 Dictated By: Omkar Combs Jr, DO 01/27/25 1123 Signed By: 01/27/25 1124 Normal [facility] aPTT in Platelet poor plasma by Coagulation assayOrdered By: Bennett Navarro on 01-27-2025 aPTT Coag (PPP) [Time] Activated partial thromboplastin time (aPTT) in platelet poor plasma by coagulation a 25.1-36.5 [facility] Comment on above: A hematocrit value g reater than 55% may lead to inaccurate results in coagulation testing. Patients having hematocrit values >55% require a special collection tube for coagulation studies. Please contact the laboratory at [phone] for redraw instructions. Appearance of UrineOrdered B y: Nikos Lao on 01-26-2025 Appearance (U) Urine appearance Clear [facility] B-Type Natriuretic Peptideon 01-26-2025 Natriuretic peptide B (Bld) [Mass/Vol] 258.0 pg/mL High 5-100 [facility] Comment on above: Result Comment: PERF ORMED BY: [address] [place] [address] PATHOLOGIST ANIMAL CARE SERVICE WORKER ANURADHA GRANADOS M.D. Performed By: #### P T, PTT, CBC, TSH3 wRFLX, BMP, CK, T4F, HS TROP #### [address] Basic Metabolic Panelon 03-0 Anion gap [Moles/Vol] 19.0 mmol/L High 6.0-15.0 Th e [facility] Comment on above: Performed By: #### P T, PTT, CBC, TSH3 wRFLX, BMP, CK, T4F, HS TROP #### [facility] [address] Calcium [Mass/Vol] 9.1 mg/dL Normal 8.6-10.3 [facility] Comment on above: Performed By: #### P T, PTT, CBC, TSH3 wRFLX, BMP, CK, T4F, HS TROP #### [address] Chloride [Moles/Vol] 104 mmol/L Normal 98-107 [facility] Comment on above: Performed By: #### P T, PTT, CBC, TSH3 wRFLX, BMP, CK, T4F, HS TROP #### [address] CO2 [Moles/Vol] 19.3 mmol/L Low 21.0-31.0 [facility] Comment on above: Performed By: #### P T, PTT, CBC, TSH3 wRFLX, BMP, CK, T4F, HS TROP #### [address] Creatinine [Mass/Vol] 0.96 mg/dL Normal 0.70-1.30 [facility] Comment on above: Performed By: #### P T, PTT, CBC, TSH3 wRFLX, BMP, CK, T4F, HS TROP #### [address] Creatinine Clr [facility] 58.39 Normal [facility] Comment on above: Result Comment: PERF ORMED BY: [place] [address] PATHOLOGIST ANIMAL CARE SERVICE WORKER ANURADHA GRANADOS M.D. Performed By: #### P T, PTT, CBC, TSH3 wRFLX, BMP, CK, T4F, HS TROP #### [address] GFR/1.73 sq M.predicted MDRD (S/P/Bld) [Vol rate/Area] mL/min/{1.73_m2} Normal [facility] Comment on above: Performed By: #### P T, PTT, CBC, TSH3 wRFLX, BMP, CK, T4F, HS TROP #### [address] Glucose [Mass/Vol] 187 mg/dL High 70-100 [facility] Comment on above: Result Comment: [facility] Glucose Reference Range is dependent on time and content of last meal. Glucose of more than 200 mg/dL in a nonstressed, ambulatory subject supports the diagnosis of Diabetes Mellitus. ADA recommended reference range Performed By: #### P T, PTT, CBC, TSH3 wRFLX, BMP, CK, T4F, HS TROP #### [address] Potassium [Moles/Vol] 3.3 mmol/L Low 3.5-5.1 [facility] Comment on above: Performed By: #### P T, PTT, CBC, TSH3 wRFLX, BMP, CK, T4F, HS TROP #### [place] [address] [place] Sodium [Moles/Vol] 139 mmol/L Normal 136-145 [facility] Comment on above: Performed By: #### P T, PTT, CBC, TSH3 wRFLX, BMP, CK, T4F, HS TROP #### [place] [address] [place] Urea nitrogen [Mass/Vol] 13 mg/dL Normal 7-25 [facility] Comment on above: Performed By: #### P T, PTT, CBC, TSH3 wRFLX, BMP, CK, T4F, HS TROP #### [facility] [address] [place] [address] [place] Basophils Auto (Bld) [#/Vol] Ordered By: Nikos Lao on 01-26-2025 Basophils (Bld) [#/Vol] Automated basophil count 0.0-0.2 [facility] Basophils/100 WBC Auto (Bld) Ordered By: Nikos Lao on 01-26-2025 Basophils/100 WBC (Bld) Automated basophil % . [facility] Bilirubin Test strip Ql (U)O rdered By: Nikos Lao on 01-26-2025 Bilirubin Ql (U) Bilirubin.total [Presence] in Urine by Test strip Negative [facility] BioFire Not Detectedon 01-26 BioFire Not Detected Not detected Normal Not Detecte [facility] Comment on above: Result Comment: This is a duplicate RP2.1 COVID (PCR) result to be used for statistical tracking purpose only. PERFORMED BY: [place] [address] PATHOLOGIST ANIMAL CARE SERVICE WORKER ANURADHA GRANADOS M.D. Performed By: #### C BC #### [facility] [address] [place] [address] Blood carbon dioxide, total measurement by calculation (moles/volume)Ordered By: Nikos Lao on 01-26-2025 CO2 Calc (Bld) [Moles/Vol] Blood carbon dioxide, total measurement by calculation (moles/volume) [facility] COVID-19 Detected/Not Detect edOrdered By: Nikos Lao on 01-26-2025 SARS-CoV-2 (COVID-19) RNA BILLY+non-probe Ql (Nph) Not detected Not Detecte [facility] Comment on above: This is a duplicate RP2.1 COVID (PCR) result to be used for statistical tracking purpose only. CT angio headon 01-26-2025 CT angio head [facility] [place] [address] [place] [address] CT Scan Report Signed Patient: Bailee Traore MR#: [id number] : 1945 Acct:[id number] Age/Sex: 79 / M ADM Date: 01/26/25 Loc: ER Room: Type: PRE ER Attending Dr: Copies to: Nikos Lao DO Ordering Provider: Nikos Lao DO Date of Service: 01/26/25 CT/CT angio head: weakness L ([id number]) CT/CT angio neck: L weakness ([id number]) CT/CT head stroke alert wo con: acute stroke/neuro deficits CT head stroke alert wo con, CT angio neck, CT angio head 01/26/2025 7:31 AM SIGNS AND SYMPTOMS: New onset of A. fib. Left-sided extension. Staring to the right. TECHNIQUE: Multi-detector CT angiography axial slices of the head and neck were obtained before and during intravenous administration of IV contrast material. Sagittal, coronal, and 3-D reconstructions were performed and viewed on a separate workstation. CT was performed with one or more of the following dose reduction techniques: Automated exposure control, adjustment of the mA and/or kV according to patient size, or use of iterative reconstruction technique. Stenoses were measured using the NASCET criteria. COMPARISON: None. FINDINGS: Noncontrast head CT: Loss of groves-white differentiation is seen involving the right parietotemporal region suggestive of subacute area of ischemia. This appears to be superimposed on cortical atrophy and chronic microvascular ischemic changes. No midline shift or transtentorial herniation. Posterior fossa appears unremarkable. Visualized intraorbital contents demonstrate no acute findings. Visualized paranasal sinuses are clear. The surrounding soft tissues are normal. Findings were discussed with Dr. Lao by the teleradiology service 7:57 AM 01/26/2025 CTA HEAD: Posterior inferior cerebellar arteries : patent Basilar artery: patent Superior cerebellar arteries: patent Posterior cerebral arteries: Patent. origins. Intracranial segments of the internal carotid arteries: patent MCA: Left MCA is patent. Posterior vessels involving the M3 segment in the region of hypodensity suspicious for distal occlusion. M1 and M2 segments of the right MCA appear unremarkable. GAMAL: patent Anterior Communicating artery: patent Posterior Communicating arteries: Not present. CTA NECK: Vertebral arteries : Right vertebral artery dominance. Patent. Normal origins. Common Carotid arteries: patent Internal Carotid arteries: Mild calcification. Plaquing involving the carotid bulbs. Mild calcification proximal right ICA causing less than 50% stenosis. Left ICA appears unremarkable. No gross central airway mass. No soft tissue swelling or lymphadenopathy. Visualized lung apices demonstrate emphysema. Osseous structures demonstrate cervical spondylosis. CT/CT head stroke alert wo con IMPRESSION: Hypodensity involving the right parietotemporal region with paucity of vessels involving the M3 segment of the right MCA within this region suggestive of subacute ischemia with occlusion. Impression dictated by: Omkar Combs Jr., Yessy01/26/2025 9:04 AM Dictation Location: [facility] Transcribed By: PWS 01/26/25 0904 Dictated By: Omkar Combs Jr, DO 01/26/25 0856 Signed By: 01/26/25 09 Normal [facility] CT head/brain perfusionon CT head/brain perfusion [facility] [place] [address] CT Scan Report Signed Patient: Bailee Traore MR#: [id number] : 1945 Acct:[id number] Age/Sex: 79 / M ADM Date: 01/26/25 Loc: ER Room: Type: PRE ER Attending Dr: Copies to: Nikos Lao DO Ordering Provider: Nikos Lao DO Date of Service: 01/26/25 CT/CT head/brain perfusion: stroke, abnormal cta CT head/brain perfusion 01/26/2025 9:55 AM SIGN AND SYMPTOMS: New onset A. fib, left sided neglect CONTRAST: 50 ml of intravenous Isoview 370 TECHNIQUE: Multidetector CT axial slices of the brain were obtained without IV contrast. Sagittal, coronal, and 3-D reconstructions were performed and viewed on a separate workstation. Dynamic acquisition CT perfusion images were obtained in 18 seperate phases during and after administration of 50 mL Omnipaque 350 intravenously. Arterial and venous time activity curves were generated with regions of interest drawn over the arterial and venous circulations. Color maps for mean transit time, cerebral blood flow, cerebral perfusion, and time to peak perfusion were generated in the axial plane. Dynamic 3-D CT angiography images were reconstructed in sagittal coronal and axial plane and viewed on a separate workstation. CT was performed with one or more of the following dose reduction techniques: Automated exposure control, adjustment of the mA and/or kV according to patient size, or use of iterative reconstruction technique. COMPARISON: 01/26/2025. FINDINGS: Arterial input function CASSIE selected: Right ICA terminus. Venous outflow function CASSIE: Torcula. Parametric maps: CTP characteristics {for area of interest}: + CBF {cerebral blood flow}: Symmetric. + Tmax: Symmetric. + CBV {cerebral blood volume}: Asymmetric elevated cerebral blood volume is noted in the anterior aspect of the left anterior cerebral artery/middle cerebral artery territory. Vascular territory involved: Left middle cerebral artery/anterior cerebral artery territory Tissue involved: Left frontal lobe Mismatch volume: 0 mL Mismatch ratio: None CT/CT head/brain perfusion IMPRESSION: Asymmetric elevated cerebral blood volume is noted in the anterior aspect of the left anterior cerebral artery/middle cerebral artery territory. This may represent sequelae of remote ischemic injury. Otherwise symmetric perfusion indices. Mismatch volume: 0 mL Mismatch ratio: None Impression dictated by: Emmanuel Grijalva M.D.01/26/2025 10:54 AM Dictation Location: [place] [address] Transcribed By: [facility] 01/26/25 1054 Dictated By: Emmanuel Grijalva II, MD 01/26/25 1044 Signed By: 01/26/25 1054 Normal [facility] CT head/brain wo roula 01-26 CT head/brain wo con [facility] [place] [address] CT Scan Report Signed Patient: Bailee Traore MR#: [id number] : 1945 Acct:[id number] Age/Sex: 79 / M ADM Date: 01/26/25 Loc: ER Room: Type: [facility] ER Attending Dr: Copies to: Nikos Lao DO Ordering Provider: Nikos Lao DO Date of Service: 01/26/25 CT/CT head/brain wo con: repeat, seizure, [place] CT BRAIN WITHOUT CONTRAST: CLINICAL HISTORY: Seizure, headache. COMPARISON: CT/CTA brain performed earlier today. TECHNIQUE: Contiguous axial unenhanced images were obtained through the brain. This CT exam was performed using one or more following dose reduction techniques: Automated exposure control, adjustment of the mA and/or kV according to patient size, or use of iterative reconstruction technique. FINDINGS: Previously given contrast is still present limiting evaluation for hemorrhage. Once again demonstrated is a persistent hypodensity with loss of the groves/white matter differentiation involving the right parietotemporal region similar to the prior study with no definitive new areas of hemorrhage, midline shift or transtentorial herniation. There is associated sulcal effacement. No new areas of groves/white matter differentiation loss is noted. This appears to be superimposed on cortical atrophy and chronic microvascular ischemic changes. This Posterior fossa appears unremarkable. Visualized intraorbital contents demonstrate no acute findings. Visualized paranasal sinuses are clear. The surrounding soft tissues are normal. CT/CT head/brain wo con IMPRESSION: Evaluation for hemorrhage is limited due to previously given IV contrast. NO SIGNIFICANT CHANGE IN BRAIN FINDINGS COMPARED TO THE PRIOR STUDY FROM 7:45 AM THIS MORNING. Impression dictated by: Omkar Combs Jr., D.OYuni01/26/2025 1:01 PM Dictation Location: [facility] Transcribed By: [facility] 01/26/25 1301 Dictated By: Omkar Combs Jr, DO 01/26/25 1255 Signed By: 01/26/25 1301 Normal [facility] Calcium [Mass/volume] in Ser um or PlasmaOrdered By: Nikos Lao on 01-26-2025 Calcium [Mass/Vol] Calcium [Mass/volume ] in Serum or Plasma 8.6-10.3 [facility] Carbon dioxide, total [Moles /volume] in Serum or PlasmaOrdered By: Nikos Lao on 01-26-2025 CO2 [Moles/Vol] Carbon dioxide, tota l [Moles/volume] in Serum or Plasma Low 21.0-31.0 [facility] Chloride (Bld) [Moles/Vol]Or dered By: Nikos Lao on 01-26-2025 Chloride [Moles/Vol] Whole blood chlorid e measurement 98-109 [facility] Chloride [Moles/volume] in S danielle or PlasmaOrdered By: Nikos Lao on 01-26-2025 Chloride [Moles/Vol] Chloride [Moles/vol ume] in Serum or Plasma 98-107 [facility] Color Auto (U)Ordered By: Elmo Lao on 01-26-2025 Color (U) Color of Urine by Auto Yellow Fi [facility] Complete Blood Count Auto Di ffon 01-26-2025 Basophils (Bld) [#/Vol] 0.1 10*3/uL Normal 0.0-0.2 [facility] Comment on above: Result Comment: PERF ORMED BY: [place] [address] PATHOLOGIST ANIMAL CARE SERVICE WORKER ANURADHA GRANADOS M.D. Performed By: #### P T, PTT, CBC, TSH3 wRFLX, BMP, CK, T4F, HS TROP #### [address] Basophils/100 WBC (Bld) 1.4 % Normal . [facility] Comment on above: Performed By: #### P T, PTT, CBC, TSH3 wRFLX, BMP, CK, T4F, HS TROP #### [address] Eosinophils (Bld) [#/Vol] 0.2 10*3/uL Normal 0.0-0.45 [facility] Comment on above: Performed By: #### P T, PTT, CBC, TSH3 wRFLX, BMP, CK, T4F, HS TROP #### [address] Eosinophils/100 WBC (Bld) 3.6 % Normal . [facility] Comment on above: Performed By: #### P T, PTT, CBC, TSH3 wRFLX, BMP, CK, T4F, HS TROP #### [address] Erythrocyte distribution width (RBC) [Ratio] 14.4 % Normal 12.0-14.8 [facility] Comment on above: Performed By: #### P T, PTT, CBC, TSH3 wRFLX, BMP, CK, T4F, HS TROP #### [address] Hematocrit (Bld) [Volume fraction] 42.4 % Normal 38.8-50.0 [facility] Comment on above: Performed By: #### P T, PTT, CBC, TSH3 wRFLX, BMP, CK, T4F, HS TROP #### [address] Hemoglobin (Bld) [Mass/Vol] 14.4 g/dL Normal 13.0-17.0 [facility] Comment on above: Performed By: #### P T, PTT, CBC, TSH3 wRFLX, BMP, CK, T4F, HS TROP #### [address] Lymphocytes (Bld) [#/Vol] 3.2 10*3/uL Normal 1.00-4.8 [facility] Comment on above: Performed By: #### P T, PTT, CBC, TSH3 wRFLX, BMP, CK, T4F, HS TROP #### [address] Lymphocytes/100 WBC (Bld) 46.6 % Normal . [facility] Comment on above: Performed By: #### P T, PTT, CBC, TSH3 wRFLX, BMP, CK, T4F, HS TROP #### [address] MCH (RBC) [Entitic mass] 29.7 pg Normal 27.5-35.2 [facility] Comment on above: Performed By: #### P T, PTT, CBC, TSH3 wRFLX, BMP, CK, T4F, HS TROP #### [address] MCV (RBC) [Entitic vol] 87.2 fL Normal 83.5-101 T [facility] Comment on above: Performed By: #### P T, PTT, CBC, TSH3 wRFLX, BMP, CK, T4F, HS TROP #### [address] Mean Corpuscular HGB Conc 34.0 g/dL Normal 32.5-35.6 [facility] Comment on above: Performed By: #### P T, PTT, CBC, TSH3 wRFLX, BMP, CK, T4F, HS TROP #### [place] [address] [place] Monocytes (Bld) [#/Vol] 0.8 10*3/uL Normal 0.0-0.8 [facility] Comment on above: Performed By: #### P T, PTT, CBC, TSH3 wRFLX, BMP, CK, T4F, HS TROP #### [place] [address] [place] Monocytes/100 WBC (Bld) 22.89 % High 0.00-20.00 T [facility] Comment on above: Result Comment: For adults in ED, MDW > 20.0 may be associated with a higher risk of sepsis during the first 12 hrs of hospital admission Performed By: #### P T, PTT, CBC, TSH3 wRFLX, BMP, CK, T4F, HS TROP #### [place] [address] [place] Monocytes/100 WBC (Bld) 11.5 % Normal . T [facility] Comment on above: Performed By: #### P T, PTT, CBC, TSH3 wRFLX, BMP, CK, T4F, HS TROP #### [place] [address] [place] Neutrophils (Bld) [#/Vol] 2.5 10*3/uL Normal 1.8-7.7 [facility] Comment on above: Performed By: #### P T, PTT, CBC, TSH3 wRFLX, BMP, CK, T4F, HS TROP #### [place] [address] [place] Neutrophils/100 WBC (Bld) 36.9 % Normal . [facility] Comment on above: Performed By: #### P T, PTT, CBC, TSH3 wRFLX, BMP, CK, T4F, HS TROP #### [place] [address] [place] NRBC% 0.2 /100{WBC} Normal 0-0.5 [facility] Comment on above: Performed By: #### P T, PTT, CBC, TSH3 wRFLX, BMP, CK, T4F, HS TROP #### [address] Platelet mean volume (Bld) [Entitic vol] 7.8 fL Normal 6.6-10.1 [facility] Comment on above: Performed By: #### P T, PTT, CBC, TSH3 wRFLX, BMP, CK, T4F, HS TROP #### [facility] [address] Platelets (Bld) [#/Vol] 192 10*3/uL Normal 150-450 [facility] Comment on above: Performed By: #### P T, PTT, CBC, TSH3 wRFLX, BMP, CK, T4F, HS TROP #### [address] RBC (Bld) [#/Vol] 4.86 10*6/uL Normal 3.90-5.60 [facility] Comment on above: Performed By: #### P T, PTT, CBC, TSH3 wRFLX, BMP, CK, T4F, HS TROP #### [address] WBC (Bld) [#/Vol] 6.9 10*3/uL Normal 4.1-10.5 [facility] Comment on above: Performed By: #### P T, PTT, CBC, TSH3 wRFLX, BMP, CK, T4F, HS TROP #### [address] Creatine Kinaseon 01-26-2025 CK [Catalytic activity/Vol] 89 U/L Normal 30-223 [facility] Comment on above: Performed By: #### P T, PTT, CBC, TSH3 wRFLX, BMP, CK, T4F, HS TROP #### [address] Creatine kinase [Enzymatic a ctivity/volume] in Serum or PlasmaOrdered By: Nikos Lao on 01-26-2025 CK [Catalytic activity/Vol] Creatine kinase [Enzymatic activity/volume] in Serum or Plasma [facility] Creatinine (Bld) [Mass/Vol]O rdered By: Nikos Lao on 01-26-2025 Creatinine [Mass/Vol] Whole blood creati nine measurement 0.6-1.3 [facility] Comment on above: ER/ESD physician is notified/shown all ISTAT results.Critical values may be confirmed by laboratory testing ifdeemed necessary by ER attending doctor. Creatinine [Mass/volume] in Serum or PlasmaOrdered By: Nikos Lao on 01-26-2025 Creatinine [Mass/Vol] Creatinine [Mass/v olume] in Serum or Plasma 0.70-1.30 [facility] ECG 12 lead ECGon 01-26-2025 ECG 12 lead ECG [facility] [place] [address] [place] [address] Electrocardiograph Report Signed Patient: Bailee Traore MR#: [id number] : 1945 Acct:[id number] Age/Sex: 79 / M ADM Date: 01/26/25 Loc: Room: [address] [place] [address] Type: ADM IN Attending Dr: Bennett Navarro MD Ordering Provider: Nikos Lao DO Date of Service: 01/26/2512/22/809 ECG/ECG 12 lead ECG: Neuro Symptoms/Deficit Copies to: Test Reason : Blood Pressure : 162/90 mmHG Vent. Rate : 85 BPM Atrial Rate : 85 BPM P-R Int : 164 ms QRS Dur : 100 ms QT Int : 452 ms P-R-T Axes : 58 58 70 degrees QTcB Int : 537 ms Sinus rhythm with premature atrial complexes Possible Left atrial enlargement Prolonged QT Abnormal ECG When compared with ECG of 26-Jan-2025 07:29, (Unconfirmed) Sinus rhythm has replaced Atrial fibrillation Vent. rate has decreased by [address] no longer depressed in Inferior leads ST no longer depressed in Anterolateral leads Nonspecific T wave abnormality no longer evident in Lateral leads Confirmed by NIKOS LAO DO ([id number]) on 01/26/2025 3:44:25 PM Referred By: Electronically Signed By: NIKOS LAO DO Transcribed By: MUS Signed By Nikos Lao DO 01/26 1544 Normal [facility] ECG 12 lead ECG [facility] [place] [address] [place] [id number] Electrocardiograph Report Signed Patient: Bailee Traore MR#: [id number] : 1945 Acct:[id number] Age/Sex: 79 / M ADM Date: 01/26/25 Loc: Room: [address] [place] [address] Type: ADM IN Attending Dr: Bennett Navarro MD Ordering Provider: Nikos Lao DO Date of Service: 01/26/2512/22/729 ECG/ECG 12 lead ECG: Neuro Symptoms/Deficit Copies to: Test Reason : Blood Pressure : */* mmHG Vent. Rate : 163 BPM Atrial Rate : 375 BPM P-R Int : * ms QRS Dur : 88 ms QT Int : 292 ms P-R-T Axes : * 42 -32 degrees QTcB Int : 480 ms Atrial fibrillation with rapid ventricular response Marked ST abnormality, possible inferior subendocardial injury Abnormal ECG No previous ECGs available Confirmed by NIKOS LAO DO ([id number]) on 01/26/2025 3:44:25 PM Referred By: Electronically Signed By: NIKOS LAO DO Transcribed By: MUS Signed By Nikos Lao DO 01/26 1544 Normal [facility] Eosinophils Auto (Bld) [#/Vo l]Ordered By: Nikos Lao on 01-26-2025 Eosinophils (Bld) [#/Vol] Automated eosi nophil count 0.0-0.45 [facility] Eosinophils/100 WBC Auto (Bl d)Ordered By: Nikos Lao on 01-26-2025 Eosinophils/100 WBC (Bld) Automated eosinophil % . [facility] Erythrocyte distribution wid th Auto (RBC) [Ratio]Ordered By: Nikos Lao on 01-26-2025 Erythrocyte distribution width (RBC) [Ratio] Erythrocyte distribution width [Ratio] by Automated count 12.0-14.8 [facility] Free T4 (Free Thyroxine)on 0 01-26-2025 Free T4 [Mass/Vol] 1.15 ng/dL High 0.61-1.12 [facility] Comment on above: Performed By: #### P TT, PT #### [facility] [address] [place] [id number] [facility] Glucose Glucometer (BldC) [M ass/Vol]Ordered By: Nikos Lao on 01-26-2025 Glucose [Mass/Vol] Capillary blood gluc ose measurement by glucometer (mass/volume) High 70-105 [facility] Glucose [Mass/volume] in Ser um or PlasmaOrdered By: Nikos Lao on 01-26-2025 Glucose [Mass/Vol] Glucose [Mass/volume ] in Serum or Plasma High 70-100 [facility] Comment on above: ADA recommended refe rence rangeRandom Glucose Reference Range is dependent on time and content of last meal. Glucose of more than 200 mg/dL in a nonstressed, ambulatory subject supports the diagnosis of Diabetes Mellitus. Glucose [Mass/volume] in Uri ne by Test stripOrdered By: Nikos Lao on 01-26-2025 Glucose Test strip (U) [Mass/Vol] Glucose [Mass/volume] in Urine by Test strip Normal [facility] Hematocrit Auto (Bld) [Volum e fraction]Ordered By: Nikos Lao on 01-26-2025 Hematocrit (Bld) [Volume fraction] Hematocrit [Volume Fraction] of Blood by Automated count 38.8-50.0 [facility] Hemoglobin Calc (Bld) [Mass/ Vol]Ordered By: Nikos Lao on 01-26-2025 Hemoglobin (Bld) [Mass/Vol] Blood hemoglobin measurement by calculation (mass/volume) 12.0-17.0 [facility] Hemoglobin Test strip Ql (U) Ordered By: Nikos Lao on 01-26-2025 Hemoglobin Ql (U) Hemoglobin [Presence ] in Urine by Test strip Negative [facility] Hemoglobin [Mass/volume] in BloodOrdered By: Nikos Lao on 01-26-2025 Hemoglobin (Bld) [Mass/Vol] Hemoglobin [Mass/volume] in Blood 13.0-17.0 [facility] INR in Platelet poor plasma by Coagulation assayOrdered By: Nikos Lao on 01-26-2025 INR Coag (PPP) [Relative time] INR in Platelet poor plasma by Coagulation assay [facility] Comment on above: INR Therapeutic Rang e A) Pre- and Peroperative OAT started two weeks before surgery. NOT HIP SURGERY: 1.5 - 2.5 HIP SURGERY: 2 - 3B) Primary and secondary prevention of venous THROMBOSIS: 2 - 3C) Active venous thrombosis, pulmonary embolismand prevention of recurrent venous thrombosis: 2 - 3D) Prevention of arterial thromboembolismincluding patients with mechanical heart valves: 3 - 4.5 ISTAT ER Chem8+ Panelon 03-0 Chloride [Moles/Vol] 105.0 mmol/L Normal 98-[address] [facility] Comment on above: Performed By: #### E RBMP #### [facility] [address] [place] [address] Point of Care testing , CO2 [Moles/Vol] 23 mmol/L Normal 23-29 [facility] Comment on above: Performed By: #### E RBMP #### [address] Point of Care testing , Creatinine [Mass/Vol] 0.9 mg/dL Normal 0.6-1.3 [facility] Comment on above: Result Comment: ER/E SD physician is notified/shown all ISTAT results. Critical values may be confirmed by laboratory testing if deemed necessary by ER attending doctor. Performed By: #### E RBMP #### [address] Point of Care testing , Glucose [Mass/Vol] 192 mg/dL High 70-105 [facility] Comment on above: Result Comment: PERF ORMED BY: [place] [address] PATHOLOGIST ANIMAL CARE SERVICE WORKER ANURADHA GRANADOS M.D. Performed By: #### E RBMP #### [address] Point of Care testing , Hemoglobin (Bld) [Mass/Vol] 16.0 g/dL Normal 12.0-17.0 [facility] Comment on above: Performed By: #### E RBMP #### [address] Point of Care testing , ISTAT Ionized Calcium 1.12 mol/L Normal 1.12-1.32 [facility] Comment on above: Performed By: #### E RBMP #### [facility] [address] Point of Care testing , Potassium [Moles/Vol] 3.3 mmol/L Low 3.5-4.9 [facility] Comment on above: Performed By: #### E RBMP #### [facility] [address] Point of Care testing , Sodium [Moles/Vol] 142 mmol/L Normal 138-146 [facility] Comment on above: Performed By: #### E RBMP #### [facility] [address] Point of Care testing , Urea nitrogen [Mass/Vol] 14 mg/dL Normal 8-26 [facility] Comment on above: Performed By: #### E RBMP #### [facility] [address] Point of Care testing , ISTAT ER Chem8+ PanelOrdered By: Nikos Lao on 01-26-2025 Hematocrit (Bld) [Volume fraction] 47.0 % Normal 38.0-51.0 [facility] Comment on above: Performed By: #### E RBMP #### [facility] [address] [place] [address] Point of Care testing , Ketones Test strip Ql (U)Ord ered By: Nikos Lao on 01-26-2025 Ketones Ql (U) Ketones [Presence] i n Urine by Test strip Negative [facility] Leukocyte esterase [Presence ] in Urine by Test stripOrdered By: Nikos Lao on 01-26-2025 Leukocyte esterase Test strip Ql (U) Leukocyte esterase [Presence] in Urine by Test strip Negative [facility] Leukocytes [#/volume] correc dexter for nucleated erythrocytes in Blood by Automated counOrdered By: Nikos Lao on 01-26-2025 WBC corrected for nucl RBC Auto (Bld) [#/Vol] Leukocytes [#/volume] corrected for nucleated erythrocytes in Blood by Automated coun 4.1-10.5 [facility] Lymphocytes Auto (Bld) [#/Vo l]Ordered By: Nikos Lao on 01-26-2025 Lymphocytes (Bld) [#/Vol] Lymphocytes [# /volume] in Blood by Automated count 1.00-4.8 [facility] Lymphocytes/100 WBC Auto (Bl d)Ordered By: Nikos Lao on 01-26-2025 Lymphocytes/100 WBC (Bld) Lymphocytes/10 0 leukocytes in Blood by Automated count . [facility] MCH Auto (RBC) [Entitic mass ]Ordered By: Nikos Lao on 01-26-2025 MCH (RBC) [Entitic mass] MCH [Entitic ma ss] by Automated count 27.5-35.2 [facility] MCHC Auto (RBC) [Mass/Vol]Or dered By: Nikos Lao on 01-26-2025 MCHC (RBC) [Mass/Vol] MCHC [Mass/volume] by Automated count 32.5-35.6 [facility] MCV Auto (RBC) [Entitic vol] Ordered By: Nikos Lao on 01-26-2025 MCV (RBC) [Entitic vol] MCV [Entitic vol ume] by Automated count 83.5-101 [facility] Monocyte distribution width [Entitic volume] in Blood by AutomatedOrdered By: Nikos Lao on 01-26-2025 Monocyte distribution width Auto (Bld) [Entitic vol] Monocyte distribution width [Entitic volume] in Blood by Automated High 0.00-20.00 [facility] Comment on above: For adults in ED, MD W > 20.0 may be associated with a higher risk of sepsis during the first 12 hrs of hospital admission Monocytes Auto (Bld) [#/Vol] Ordered By: Nikos Lao on 01-26-2025 Monocytes (Bld) [#/Vol] Automated blood monocyte count 0.0-0.8 [facility] Monocytes/100 WBC Auto (Bld) Ordered By: Nikos Lao on 01-26-2025 Monocytes/100 WBC (Bld) Automated monocyte % . [facility] Natriuretic peptide B [Mass/ Vol]Ordered By: Nikos Lao on 01-26-2025 Natriuretic peptide B (Bld) [Mass/Vol] BNP ser/plas High 5-100 [facility] Neutrophils Auto (Bld) [#/Vo l]Ordered By: Nikos Lao on 01-26-2025 Neutrophils (Bld) [#/Vol] Neutrophils [# /volume] in Blood by Automated count 1.8-7.7 [facility] Neutrophils/100 WBC Auto (Bl d)Ordered By: Nikos Lao on 01-26-2025 Neutrophils/100 WBC (Bld) Automated neutrophil % . [facility] Nitrite Test strip Ql (U)Ord ered By: Nikos Lao on 01-26-2025 Nitrite Ql (U) Nitrite [Presence] i n Urine by Test strip Negative [facility] No Panel InformationOrdered By: Nikos Lao on 01-26-2025 Estimated GFR (CKD-EPI) > 60.0 mL/Min [facility] Creatinine Clearance (Chem 58.39 [facility] Nucleated erythrocytes [Pres ence] in Blood by Automated countOrdered By: Nikos Lao on 01-26-2025 Nucleated RBC Auto Ql (Bld) Nucleated erythrocytes [Presence] in Blood by Automated count 0-0.5 [facility] Partial Thromboplastin Timeo n 01-26-2025 aPTT Coag (Bld) [Time] 30.8 s Normal 25.1-36.5 Th [facility] Comment on above: Result Comment: A he matocrit value greater than 55% may lead to inaccurate results in coagulation testing. Patients having hematocrit values >55% require a special collection tube for coagulation studies. Please contact the laboratory at [phone] for redraw instructions. PERFORMED BY: [address] [id number] PATHOLOGIST ANIMAL CARE SERVICE WORKER ANURADHA GRANADOS M.D. Performed By: #### P T, PTT, CBC, TSH3 wRFLX, BMP, CK, T4F, HS TROP #### [facility] [address] [place] [id number] [facility] Platelet mean volume Auto (B ld) [Entitic vol]Ordered By: Nikos Lao on 01-26-2025 Platelet mean volume (Bld) [Entitic vol] Platelet mean volume [Entitic volume] in Blood by Automated count 6.6-10.1 [facility] Platelets Auto (Bld) [#/Vol] Ordered By: Nikos Lao on 01-26-2025 Platelets (Bld) [#/Vol] Platelets [#/vol ume] in Blood by Automated count 150-450 [facility] Potassium (Bld) [Moles/Vol]O rdered By: Nikos Lao on 01-26-2025 Potassium [Moles/Vol] Whole blood potass ium measurement Low 3.5-4.9 [facility] Potassium [Moles/volume] in Serum or PlasmaOrdered By: Nikos Lao on 01-26-2025 Potassium [Moles/Vol] Potassium [Moles/v olume] in Serum or Plasma Low 3.5-5.1 [facility] Protein Test strip (U) [Mass /Vol]Ordered By: Nikos Lao on 01-26-2025 Protein (U) [Mass/Vol] Protein [Mass/vol ume] in Urine by Test strip Negative [facility] Prothrombin Time INRon 01-26 INR Coag (PPP) [Relative time] 1.1 {INR} Normal [facility] Comment on above: Result Comment: INR Therapeutic Range A) Pre- and Peroperative OAT started two weeks before surgery. NOT HIP SURGERY: 1.5 - 2.5 HIP SURGERY: 2 - 3 B) Primary and secondary prevention of venous THROMBOSIS: 2 - 3 C) Active venous thrombosis, pulmonary embolism and prevention of recurrent venous thrombosis: 2 - 3 D) Prevention of arterial thromboembolism including patients with mechanical heart valves: 3 - 4.5 Performed By: #### P T, PTT, CBC, TSH3 wRFLX, BMP, CK, T4F, HS TROP #### [facility] [address] [place] [id number] [facility] PT Coag (PPP) [Time] 12.2 s Normal 9.0-12.9 [facility] Comment on above: Result Comment: A he matocrit value greater than 55% may lead to inaccurate results in coagulation testing. Patients having hematocrit values >55% require a special collection tube for coagulation studies. Please contact the laboratory at [phone] for redraw instructions. Performed By: #### P T, PTT, CBC, TSH3 wRFLX, BMP, CK, T4F, HS TROP #### [facility] [address] [place] [id number] [facility] Prothrombin time (PT)Ordered By: Nikos Lao on 01-26-2025 PT Coag (PPP) [Time] Prothrombin time (PT) 9.0- 12.9 [facility] Comment on above: A hematocrit value g reater than 55% may lead to inaccurate results in coagulation testing. Patients having hematocrit values >55% require a special collection tube for coagulation studies. Please contact the laboratory at [phone] for redraw instructions. RBC Auto (Bld) [#/Vol]Ordere d By: Nikos Lao on 01-26-2025 RBC (Bld) [#/Vol] Erythrocytes [#/volu me] in Blood by Automated count 3.90-5.60 [facility] Respiratory (Upper) Panel, P CRon 01-26-2025 Respiratory (Upper) Panel, PCR Adenovirus Not detected Bordetella parapertussis Not detected Chlamydia pneumoniae Not detected Coronavirus 229E Not detected Coronavirus HKU1 Not detected Coronavirus NL63 Not detected Coronavirus OC43 Not detected Influenza A Not detected Influenza B Not detected Human Metapneumovirus Not detected Mycoplasma pneumoniae Not detected Parainfluenza Virus 1 Not detected Parainfluenza Virus 2 Not detected Parainfluenza Virus 3 Not detected Parainfluenza Virus 4 Not detected Bordetella pertussis-ptxP Not detected Human Rhino/Enterovirus Not detected Resp. Syncytial Virus Not detected COVID-19 Detected/Not Detected Not detected Blank Space ---- FLUA TEST INCLUDES Influenza A tests for the following clinically FLUA TEST INCLUDES significant subtypes: FLUA TEST INCLUDES - Influenza A FLUA TEST INCLUDES - Influenza A H1 FLUA TEST INCLUDES - Influenza A H1 2009 FLUA TEST INCLUDES - Influenza A H3 Blank Space ---- PERFORMED BY: [place] [address] PATHOLOGIST ANIMAL CARE SERVICE WORKER ANURADHA GRANADOS M.D. Normal [facility] Comment on above: Performed By: #### C BC #### [address] Respiratory pathogens DNA an d RNA panel - Nasopharynx by BILLY with non-probe detectionOrdered By: Nikos Lao on 01-26-2025 Respiratory pathogens DNA and RNA panel BILLY+non-probe (Nph) Respiratory pathogens DNA and RNA panel - Nasopharynx by BILLY with non-probe detection [facility] Respiratory pathogens DNA and RNA panel BILLY+non-probe (Nph) Respiratory pathogens DNA and RNA panel - Nasopharynx by BILLY with non-probe detection [facility] Serum or plasma anion gap de terminationOrdered By: Nikos Lao on 01-26-2025 Anion gap [Moles/Vol] Serum or plasma an ion gap determination High 6.0-15.0 [facility] Sodium (Bld) [Moles/Vol]Orde red By: Nikos Lao on 01-26-2025 Sodium [Moles/Vol] Whole blood sodium measurement 138-146 [facility] Sodium [Moles/volume] in Ser um or PlasmaOrdered By: Nikos Lao on 01-26-2025 Sodium [Moles/Vol] Sodium [Moles/volume ] in Serum or Plasma 136-145 [facility] Specific gravity Test strip (U) [Rel density]Ordered By: Nikos Lao on 01-26-2025 Specific gravity (U) [Rel density] Specific gravity of Urine by Test strip High 1.001-1.03 0 [facility] Thyroid Stim Hormone w/Rflxo n 01-26-2025 Thyroid Stim Hormone w/Rflx 5.84 u[iU]/mL High 0.45-5.33 [facility] Comment on above: Result Comment: PERF ORMED BY: [address] [address] PATHOLOGIST ANIMAL CARE SERVICE WORKER ANURADHA GRANADOS M.D. Performed By: #### P TT, PT #### [place] [id number] [facility] Thyrotropin [Units/volume] i n Serum or PlasmaOrdered By: Nikos Lao on 01-26-2025 TSH Qn Thyrotropin [Units/volume] in Serum or Plasma High 0.45-5.33 [facility] Thyroxine (T4) free [Mass/vo lume] in Serum or PlasmaOrdered By: Nikos Lao on 01-26-2025 Free T4 [Mass/Vol] Thyroxine (T4) free [Mass/volume] in Serum or Plasma High 0.61-1.12 [facility] Troponin I High Sensitivityo n 01-26-2025 Troponin I High Sensitivity 36 High 0-20 [facility] Comment on above: Result Comment: The Troponin units of report have been changed to meet the Chest Pain Accreditation requirement, element EC5.M1l2. Troponin units are changed from pg/ml to ng/L. Also, the decimal is removed and results are in whole numbers. PERFORMED BY: [place] [address] PATHOLOGIST ANIMAL CARE SERVICE WORKER ANURADHA GRANADOS M.D. Performed By: #### P TT, PT #### [address] Troponin I.cardiac [Mass/vol ume] in Serum or Plasma by Detection limit <= 0.01 ng/Ordered By: Nikos Lao on 01-26-2025 Troponin I.cardiac DL <= 0.01 ng/mL [Mass/Vol] Troponin I.cardiac [Mass/volume] in Serum or Plasma by Detection limit <= 0.01 ng/ High 0-20 [facility] Comment on above: The Troponin units o f report have been changed to meet the Chest Pain Accreditation requirement, element EC5.M1l2. Troponin units are changed from pg/ml to ng/L. Also, the decimal is removed and results are in whole numbers. Urea nitrogen (Bld) [Mass/Vo l]Ordered By: Nkios Lao on 01-26-2025 Urea nitrogen [Mass/Vol] Blood urea nitr ogen (BUN) measurement in whole blood (mass/volume) 8-26 [facility] Urea nitrogen [Mass/volume] in Serum or PlasmaOrdered By: Nikos Lao on 01-26-2025 Urea nitrogen [Mass/Vol] Urea nitrogen [Mass/volume] in Serum or Plasma 06-21 [facility] Urinalysison 01-26-2025 Appearance (U) Clear Normal Clear [facility] Comment on above: Order Comment: Name Collection Type:: Clean-Voided Midstream Performed By: #### P T, PTT, CBC, TSH3 wRFLX, BMP, CK, T4F, HS TROP #### [facility] [address] [place] [address] Bilirubin,Urine Negative Normal Negative [facility] Comment on above: Order Comment: Name Collection Type:: Clean-Voided Midstream Performed By: #### P T, PTT, CBC, TSH3 wRFLX, BMP, CK, T4F, HS TROP #### [address] Color (U) Light-Yellow Normal Yellow [facility] Comment on above: Order Comment: Name Collection Type:: Clean-Voided Midstream Performed By: #### P T, PTT, CBC, TSH3 wRFLX, BMP, CK, T4F, HS TROP #### [address] Glucose Ql (U) Normal Normal Normal [facility] Comment on above: Order Comment: Name Collection Type:: Clean-Voided Midstream Performed By: #### P T, PTT, CBC, TSH3 wRFLX, BMP, CK, T4F, HS TROP #### [address] Ketones Ql (U) Negative Normal Negative [facility] Comment on above: Order Comment: Name Collection Type:: Clean-Voided Midstream Performed By: #### P T, PTT, CBC, TSH3 wRFLX, BMP, CK, T4F, HS TROP #### [address] Leukocyte esterase Test strip Ql (U) Negative Normal Negative [facility] Comment on above: Order Comment: Name Collection Type:: Clean-Voided Midstream Performed By: #### P T, PTT, CBC, TSH3 wRFLX, BMP, CK, T4F, HS TROP #### [place] [address] [place] Nitrite,Urine Negative Normal Negative [facility] Comment on above: Order Comment: Name Collection Type:: Clean-Voided Midstream Performed By: #### P T, PTT, CBC, TSH3 wRFLX, BMP, CK, T4F, HS TROP #### [address] Occult Blood,Urine Negative Normal Negative [facility] Comment on above: Order Comment: Name Collection Type:: Clean-Voided Midstream Result Comment: PERF ORMED BY: [place] [address] PATHOLOGIST ANIMAL CARE SERVICE WORKER ANURADHA GRANADOS M.D. Performed By: #### P T, PTT, CBC, TSH3 wRFLX, BMP, CK, T4F, HS TROP #### [address] pH (U) 6.5 [pH] Normal 5.0-9.0 [facility] Comment on above: Order Comment: Name Collection Type:: Clean-Voided Midstream Performed By: #### P T, PTT, CBC, TSH3 wRFLX, BMP, CK, T4F, HS TROP #### [place] [address] [place] Protein,Urine Negative Normal Negative [facility] Comment on above: Order Comment: Name Collection Type:: Clean-Voided Midstream Performed By: #### P T, PTT, CBC, TSH3 wRFLX, BMP, CK, T4F, HS TROP #### [place] [address] [place] Specificy [place],Urine 1.039 High 1.00 1-1.03 0 [facility] Comment on above: Order Comment: Name Collection Type:: Clean-Voided Midstream Performed By: #### P T, PTT, CBC, TSH3 wRFLX, BMP, CK, T4F, HS TROP #### [place] [address] [place] Urobilinogen,Urine Normal Normal Normal [facility] Comment on above: Order Comment: Name Collection Type:: Clean-Voided Midstream Performed By: #### P T, PTT, CBC, TSH3 wRFLX, BMP, CK, T4F, HS TROP #### [address] Urobilinogen Test strip (U) [Mass/Vol]Ordered By: Nikos Lao on 01-26-2025 Urobilinogen (U) [Mass/Vol] Urobilinogen [Mass/volume] in Urine by Test strip Normal [facility] WBC Auto (Bld) [#/Vol]Ordere d By: Nikos Lao on 01-26-2025 WBC (Bld) [#/Vol] Leukocytes [#/volume ] in Blood by Automated count 4.1-10.5 [facility] Whole blood ionized calcium measurement (moles/volume)Ordered By: Nikos Lao on 01-26-2025 Calcium.ionized (Bld) [Moles/Vol] Whole blood ionized calcium measurement (moles/volume) 1.12-1.32 [facility] X-ray reportOrdered By: Darell Combs on 01-26-2025 Study report [facility] Main [place] [address] [place] [address] XRay Report Signed Patient: Bailee Traore MR#: [id number] : 1945 Acct:[id number] Age/Sex: 79 / M ADM Date: 5 Loc: ER Room: Type: PRE ER Attending Dr: Copies to: Nikos Lao DO~ Ordering Provider: Nikos Lao DO Date of Service: 01/26/25 XR/XR chest 1V portable: Neuro Symptoms/Deficit SINGLE VIEW CHEST CLINICAL HISTORY: Unable to move left side. Stroke alert. COMPARISON: None FINDINGS: Cardiomegaly with vascular congestion/interstitial changes. No pneumothorax, large pleural effusion or free air. XR/XR chest 1V portable IMPRESSION: THYROMEGALY VASCULAR CONGESTION/INTERSTITIAL CHANGES SUGGESTIVE OF UNDERLYING CHF/PULMONARY EDEMA. NO DEFINITE CONSOLIDATION IS SEEN. Impression dictated by: Omkar Combs Jr., D.OYuni01/26/2025 8:30 AM Dictation Location: [facility]-18 Transcribed By: ROSA 01/26/25829 Dictated By: Omkar Combs Jr, DO 01/26/25829 Signed By: 01/26/25829 [facility] Study report [address] [address] XRay Report Signed Patient: Bailee Traore MR#: [id number] : 1945 Acct:[id number] Age/Sex: 79 / M ADM Date: 5 Loc: ER Room: Type: PRE ER Attending Dr: Copies to: Nikos Lao DO~ Ordering Provider: Nikos Lao DO Date of Service: 01/26/25 XR/XR chest 1V portable: Neuro Symptoms/Deficit SINGLE VIEW CHEST CLINICAL HISTORY: Unable to move left side. Stroke alert. COMPARISON: None FINDINGS: Cardiomegaly with vascular congestion/interstitial changes. No pneumothorax, large pleural effusion or free air. XR/XR chest 1V portable IMPRESSION: THYROMEGALY VASCULAR CONGESTION/INTERSTITIAL CHANGES SUGGESTIVE OF UNDERLYING CHF/PULMONARY EDEMA. NO DEFINITE CONSOLIDATION IS SEEN. Impression dictated by: Omkar Combs Jr., D.O.01/26/2025 8:30 AM Dictation Location: [facility]18 Transcribed By: ROSA 01/26/25829 Dictated By: Omkar Combs Jr, DO 01/26/25829 Signed By: 01/26/25 0830 [facility] XR chest 1V portableon 01-26 XR chest 1V portable [facility] Main [address] [address] XRay Report Signed Patient: Bailee Traore MR#: [id number] : 1945 Acct:[id number] Age/Sex: 79 / M ADM Date: 01/26/25 Loc: ER Room: Type: PRE ER Attending Dr: Copies to: Nikos Lao DO Ordering Provider: Nikos Lao DO Date of Service: 01/26/25 XR/XR chest 1V portable: Neuro Symptoms/Deficit SINGLE VIEW CHEST CLINICAL HISTORY: Unable to move left side. Stroke alert. COMPARISON: None FINDINGS: Cardiomegaly with vascular congestion/interstitial changes. No pneumothorax, large pleural effusion or free air. XR/XR chest 1V portable IMPRESSION: THYROMEGALY VASCULAR CONGESTION/INTERSTITIAL CHANGES SUGGESTIVE OF UNDERLYING CHF/PULMONARY EDEMA. NO DEFINITE CONSOLIDATION IS SEEN. Impression dictated by: Omkar Combs Jr., D.O.01/26/2025 8:30 AM Dictation Location: [facility] Transcribed By: [facility] 01/26/25829 Dictated By: Omkar Combs Jr, DO 01/26/25829 Signed By: 01/26/25829 Normal [facility] aPTT in Platelet poor plasma by Coagulation assayOrdered By: Nikos Lao on 01-26-2025 aPTT Coag (PPP) [Time] Activated partial thromboplastin time (aPTT) in platelet poor plasma by coagulation a 25.1-36.5 [facility] Comment on above: A hematocrit value g reater than 55% may lead to inaccurate results in coagulation testing. Patients having hematocrit values >55% require a special collection tube for coagulation studies. Please contact the laboratory at [phone] for redraw instructions. pH Test strip (U)Ordered By: Nikos Lao on 01-26-2025 pH (U) pH of Urine by Test strip 5.0-9.0 [facility] Vital Signs Date Time Vital Sign Value Performing Clinician Ana carpenter 08-06-2025 10:13040 Body height 182.88 cm Puma Novak DO Work Phone: [facility] 08-06-2025 10:13040 Body mass index (BMI) [Ratio] 28 kg/m2 Puma Novak DO Work Phone: [facility] 08-06-2025 10:13040 Body weight 93.89 kg Puma Novak DO Work Phone: [facility] 08-06-2025 10:13040 Diastolic blood pressure 72 mm[Hg] Puma Novak DO Work Phone: [facility] 08-06-2025 10:13-0400 Heart rate 75 /min Puma Novak DO Work Phone: [facility] 08-06-2025 10:13-0400 Respiratory rate 16 /min Puma Novak DO Work Phone: [facility] 08-06-2025 10:13-0400 SaO2% (BldA) [Mass fraction] 90 % Puma Novak DO Work Phone: [facility] 08-06-2025 10:13-0400 Systolic blood pressure 128 mm[Hg] Puma Novak DO Work Phone: [facility] 04-17-2025 13:23-0400 Diastolic blood pressure 53 mm[Hg] Lucille Engel (Clinic) DO Work Phone: [facility] 04-17-2025 13:23-0400 Systolic blood pressure 88 mm[Hg] Lucille Engel (Clinic) DO Work Phone: [facility] 04-17-2025 13:22-0400 Body height 182.88 cm Lucille Engel (Clinic) DO Work Phone: [facility] 04-17-2025 13:22-0400 Body mass index (BMI) [Ratio] 26.7 kg/m2 Lucille Engel (Clinic) DO Work Phone: [facility] [facility] 04-[facility]25 13:22-0400 Body weight 89.35 kg Lucille Engel (Clinic) DO Work Phone: [facility] 04-17-2025 13:22-0400 Heart rate 68 /min Lucille Engel (Clinic) DO Work Phone: [facility] 04-17-2025 13:22-0400 Respiratory rate 16 /min Lucille Engel (Clinic) DO Work Phone: [facility] 04-17-2025 13:22-0400 SaO2% (BldA) [Mass fraction] 94 % Lucille Engel ([facility]) DO Work Phone: [facility] 03-15-2025 06:45-0400 Body height 182.88 cm Lucille Engel ([facility]) DO Work Phone: [facility] 03-15-2025 06:45-0400 Body weight 88.45 kg Lucille Engel ([facility]) DO Work Phone: [facility] 02-15-2025 14:00-0400 Body temperature 97.8 [degF] Lucille Engel ([facility]) DO Work Phone: [facility] 02-15-2025 14:00-0400 Diastolic blood pressure 78 mm[Hg] Lucille Engel ([facility]) DO Work Phone: [facility] 02-15-2025 14:00-0400 Heart rate 70 /min Lucille Engel ([facility]) DO Work Phone: [facility] 02-15-2025 14:00-0400 Respiratory rate 16 /min Lucille Engel ([facility]) DO Work Phone: [facility] 02-15-2025 14:00-0400 SaO2% (BldA) [Mass fraction] 93 % Lucille Engel ([facility]) DO Work Phone: [facility] 02-15-2025 14:00-0400 Systolic blood pressure 138 mm[Hg] Lucille Engel ([facility]) DO Work Phone: [facility] 02-14-2025 07:41-0400 Body height 182.88 cm Lucille Engel ([facility]) DO Work Phone: [facility] 02-10-2025 06:00-0400 Body weight 87.4 kg Lucille Engel ([facility]) DO Work Phone: [facility] 01-30-2025 19:55-0500 Body temperature 98.1 [degF] Lucille Engel ([facility]) DO Work Phone: [facility] 01-30-2025 19:55-0500 Diastolic blood pressure 75 mm[Hg] Lucille Engel (Clinic) DO Work Phone: [facility] 01-30-2025 19:55-0500 Heart rate 75 /min Lucille Engel (Clinic) DO Work Phone: [facility] 01-30-2025 19:55-0500 Respiratory rate 14 /min Lucille Engel (Clinic) DO Work Phone: [facility] 01-30-2025 19:55-0500 SaO2% (BldA) [Mass fraction] 92 % Lucille Engel (Clinic) DO Work Phone: [facility] 01-30-2025 19:55-0500 Systolic blood pressure 160 mm[Hg] Lucille Engel (Clinic) DO Work Phone: [facility] 01-30-2025 04:48-0500 Body weight 78.8 kg Lucille Engel (Clinic) DO Work Phone: [facility] 01-29-2025 08:38-0500 Inhaled oxygen flow rate 2 L/min Lucille Engel (Clinic) DO Work Phone: [facility] 01-27-2025 12:45-0500 Body height 172.72 cm Lucille Engel (Clinic) DO Work Phone: [facility] 01-26-2025 14:35-0500 Inhaled oxygen flow rate 4 L/min Lucille Engel (Clinic) DO Work Phone: [facility] 01-26-2025 14:33-0500 Diastolic blood pressure 69 mm[Hg] Lucille Engel (Clinic) DO Work Phone: [facility] 01-26-2025 14:33-0500 Heart rate 92 /min Lucille Engel (Clinic) DO Work Phone: [facility] 01-26-2025 14:33-0500 Respiratory rate 21 /min Lucille Engel ([facility]) DO Work Phone: [facility] 01-26-2025 14:33-0500 SaO2% (BldA) [Mass fraction] 97 % Lucille Engel ([facility]) DO Work Phone: [facility] 01-26-2025 14:33-0500 Systolic blood pressure 155 mm[Hg] Lucille Engel ([facility]) DO Work Phone: [facility] 01-26-2025 07:35-0500 Body temperature 97.7 [degF] Lucille nEgel ([facility]) DO Work Phone: [facility] 01-26-2025 07:25-0500 Body height 172.72 cm Lucille Engel ([facility]) DO Work Phone: [facility] 01-26-2025 07:25-0500 Body weight 81 kg Lucille Engel ([facility]) DO Work Phone: [facility] 08-29-2021 17:43-0400 Body height 179.07 cm PA-C Ranjeet Jarvis Work Phone: [facility] 08-29-2021 17:43-0400 Body mass index (BMI) [Ratio] 28 kg/m2 PA-C Ranjeet Jarvis Work Phone: [facility] 08-29-2021 17:43-0400 Body temperature 97.5 [degF] PA-C Ranjeet Jarvis Work Phone: [facility] 08-29-2021 17:43-0400 Body weight 90 kg PA-C Ranjeet Jarvis Work Phone: [facility] 08-29-2021 17:43-0400 Diastolic blood pressure 82 mm[Hg] PA-C Ranjeet Jarvis Work Phone: [facility] 08-29-2021 17:43-0400 Heart rate 78 /min PA-C Ranjeet Jarvis Work Phone: [facility] 08-29-2021 17:43-0400 Respiratory rate 21 /min ANAMARIA Jarvis Work Phone: [facility] 08-29-2021 17:43-0400 SaO2% (BldA) [Mass fraction] 98 % ANAMARIA Jarvis Work Phone: [facility] 08-29-2021 17:43-0400 Systolic blood pressure 160 mm[Hg] ANAMARIA Jarvis Work Phone: [facility] Encounters Encounter Date Encounter Type Care Provider Facility Start: 04-24-2026 ambulatory JOVANNI Valdiviai ty:[facility] Start: 08-06-2025 End: 08-06-2025 ambulatory Puma Novak DO Work Phone: [facility] Work Phone: Start: 08-06-2025 End: 08-06-2025 Patient encounter procedure Shona Henriquez [employer] DISTRIBUTOR-SPORTS DIRECTOR-C -[facility] Work Phone: Start: 04-18-2025 End: 04-18-2025 ambulatory JOVANNI ROGERS Facility:[facility] Start: 04-17-2025 End: 04-17-2025 ambulatory Lucille Engel (Clinic) DO Work Phone: [facility] Work Phone: Start: 04-17-2025 End: 04-17-2025 Patient encounter procedure Lucille Engel (Clinic) DO Work Phone: [facility] Work Phone: Start: 03-19-2025 End: 03-19-2025 ambulatory JOVANNI ROGERS Facility:[facility] Start: 03-15-2025 End: 03-15-2025 Patient encounter procedure Lucille Engel (Clinic) DO Work Phone: [facility] [place] Work Phone: Start: 03-15-2025 End: 03-15-2025 ambulatory Lucille Maren (Clinic) DO Work Phone: [facility] Work Phone: Start: 03-01-2025 End: 03-01-2025 ambulatory Lucille Engel (Clinic) DO Work Phone: [facility] Work Phone: Start: 03-01-2025 End: 03-01-2025 Departed Referred Lucille Maren (Clinic) DO Work Phone: [facility] Start: 02-19-2025 ambulatory JOVANNI ROGERS Facility :[facility] Start: 02-14-2025 Non-patient / Non-visit Lucille Engel (Clinic) DO Work Phone: [facility] Physician [facility] Work Phone: Start: 02-07-2025 Non-patient / Non-visit Lucille Maren (Clinic) DO Work Phone: [facility] Physician [facility] Work Phone: Start: 01-31-2025 Non-patient / Non-visit Lucille Maren (Clinic) DO Work Phone: [facility] Work Phone: Start: 01-30-2025 End: 02-15-2025 Evaluation and management of inpatient Lucille Maren (Clinic) DO Work Phone: [facility] [place] [facility] Work Phone: Start: 01-28-2025 Non-patient / Non-visit Lucille Engel (Clinic) DO Work Phone: [facility] Physician [facility] Work Phone: Start: 01-26-2025 End: 01-30-2025 Evaluation and management of inpatient Lucille Engel (Clinic) DO Work Phone: [facility] [place] [facility] Work Phone: Start: 08-29-2021 End: 08-29-2021 Emergency department patient visit ANAMARIA Jarvis Work Phone: [facility]-Emergency Room Procedures Date Procedure Procedure Detail Performing Clinician Start: 03-15-2025 MRI of head Lucille lara ([facility]) DO Work Phone: Start: 03-01-2025 Urine culture Lucille jennings ([facility]) DO Work Phone: Start: 02-03-2025 Aerobic microbial culture Lucille Engel ([facility]) DO Work Phone: Start: 02-03-2025 Anaerobic microbial culture Lucille Engel ([facility]) DO Work Phone: Start: 02-03-2025 CSF (PCR) Lucille lara ([facility]) DO Work Phone: Start: 02-03-2025 Determination of thu wth of fungi Lucille Engel ([facility]) DO Work Phone: Start: 02-03-2025 Gram stain microscopy Isabel Engel ([facility]) DO Work Phone: Start: 01-29-2025 Computed tomography of abdomen and pelvis with contrast Lucille Engel ([facility]) DO Work Phone: Start: 01-29-2025 CT of thorax with contrast Lucille Engel ([facility]) DO Work Phone: Start: 01-28-2025 MRI of head Lucille lara ([facility]) DO Work Phone: Start: 01-27-2025 Plain chest X-ray Lucille Engel ([facility]) DO Work Phone: Start: 01-26-2025 Respiratory Panel (PCR) Lucille Engel ([facility]) DO Work Phone: Start: 01-26-2025 CT of head without contrast Lucille Engel ([facility]) DO Work Phone: Start: 01-26-2025 CT of brain perfusion Isabel Engel ([facility]) DO Work Phone: Start: 01-26-2025 CT angiography of head Lucille Engel ([facility]) DO Work Phone: Start: 01-26-2025 CT angiography of ne ck vessels Lucille Engel ([facility]) DO Work Phone: Start: 01-26-2025 CT of head without contrast Lucille Engel ([facility]) DO Work Phone: Start: 01-26-2025 Plain chest X-ray Lucille Engel ([facility]) DO Work Phone: History of placement of stent for coronary artery disease S/P coronary artery stent placement Lucille Engel ([facility]) DO Work Phone: Plan of Treatment Date Care Activity Detail Author Start: 03-01-2025 Urine culture [facility] Start: 03-01-2025 Bacteria identified in Urine by Culture Urine Culture [facility] Start: 02-13-2025 [facility] Start: 01-31-2025 [facility] Start: 01-31-2025 Administration of prophylactic treatment [facility] Start: 01-31-2025 Referral to neurologist [facility] Start: 01-30-2025 Hospital admission [facility] Start: 01-30-2025 Referral to clinical electrical and instrumentation manager [facility] Start: 01-30-2025 [facility] Start: 01-30-2025 Drainage of Spinal Canal, Percutaneous Approach, Diagnostic Drainage of Spinal Canal, Percutaneous Approach, Diagnostic [facility] Start: 01-30-2025 [facility] Start: 01-28-2025 Referral to rehabilitation physician [facility] Start: 01-27-2025 Administration of prophylactic treatment [facility] Start: 01-27-2025 [facility] Start: 01-26-2025 Referral to neurologist [facility] Start: 01-26-2025 Hospital admission [facility] Start: 01-26-2025 Telemedicine consultation with patient [facility] Comprehensive metabo lic 2000 panel - Serum or Plasma [facility] MR Unspecified body region [facility] Patient Education Insect Bite or Sting (ED) [facility] Patient referral [facility] Payers Date Payer Category Payer Unknown [id number] 2025 Medicaid [id number] 2025 Medicare [id number] 2025 Self-pay [id number] 2024 Medicare [id number] 1945 Unknown [id number] [id number] 1945 Unknown [id number] 2.16.8 [id number] 1945 Unknown [id number] [id number] Private Health Insurance 911 [id number] Unknown [id number] 2.16.8 [id number] Unknown [id number] 2.16.8 [id number] Unknown [id number] 2.16.8 [id number] Unknown [id number] [id number] Unknown [id number] [id number] [id number] Social History Date Type Detail Facility Start: 08-29-2021 End: 01-31-2025 Tobacco smoking status NHIS Ex-smoker (finding) [facility] Start: 1945 Sex Assigned At Male F [facility] Start: 01-26-2025 End: 04-18-2025 Sex Male (finding) [facility] Start: 02-13-2025 SDOH Follow up SDOH Follow up [facility] Work Phone: Goals Date Patient Goal Desired Activity /State Functional Status Date Assessment Result Facility 02-15-2025 Functional status Patient Not at Baseline [facility] Work Phone: 01-26-2025 Functional status Patient Not at Baseline [facility] Work Phone: Mental Status Date Assessment Result Facility 02-15-2025 Cognitive function Cognitive Sta tus Patient Not at Baseline [facility] Work Phone: 01-26-2025 Cognitive function Cognitive Sta tus Patient Not at Baseline [facility] Work Phone: Clinical Notes 01-26-2025 to 04-18-2025 Note Date & Type Note Facility 04-18-2025 Note Patient Education Urology Acute Urinary Retention, Male Acute urinary retention is a condition in which a person is unable to pass urine or can only pass a little urine. This condition can happen suddenly and last for a short time. If left untreated, it can become long-term (chronic) and result in kidney damage or other serious complications. What are the causes? This condition may be caused by: ??? Obstruction or narrowing of the tube that drains the bladder (urethra). This may be caused by surgery, problems with nearby organs, or injury to the bladder or urethra. ??? Problems with the nerves in the bladder. ??? Tumors in the area of the pelvis, bladder, or urethra. ??? Certain medicines. ??? Bladder or urinary tract infection. ??? Constipation. What increases the risk? This condition is more likely to develop in older men. As men age, their prostate may become larger and may start to press or squeeze on the bladder or the urethra. Other chronic health conditions can increase the risk of acute urinary retention. These include: ??? Diseases such as multiple sclerosis. ??? Spinal cord injuries. ??? Diabetes. ??? Degenerative cognitive conditions, such as delirium or dementia. ??? Psychological conditions. A man may hold his urine due to trauma or because he does not want to use the bathroom. What are the signs or symptoms? Symptoms of this condition include: ??? Trouble urinating. ??? Pain in the lower abdomen. How is this diagnosed? This condition is diagnosed based on a physical exam and your medical history. You may also have other tests, including: ??? An ultrasound of the bladder or kidneys or both. ??? Blood tests. ??? A urine analysis. ??? Additional tests may be needed, such as a CT scan, MRI, and kidney or bladder function tests. How is this treated? Treatment for this condition may include: ??? Medicines. ??? Placing a thin, sterile tube (catheter) into the bladder to drain urine out of the body. This is called an indwelling urinary catheter. After it is inserted, the catheter is held in place with a small balloon that is filled with sterile water. Urine drains from the catheter into a collection bag outside of the body. ??? Behavioral therapy. ??? Treatment for other conditions. If needed, you may be treated in the hospital for kidney function problems or to manage other complications. Follow these instructions at home: Medicines ??? Take ghri-zoj-fiabvcm and prescription medicines only as told by your health care provider. Avoid certain medicines, such as decongestants, antihistamines, and some prescription medicines. Do not take any medicine unless your health care provider approves. ??? If you were prescribed an antibiotic medicine, take it as told by your health care provider. Do not stop using the antibiotic even if you start to feel better. General instructions ??? Do not use any products that contain nicotine or tobacco. These products include cigarettes, chewing tobacco, and vaping devices, such as e-cigarettes. If you need help quitting, ask your health care provider. ??? Drink enough fluid to keep your urine pale yellow. ??? If you have an indwelling urinary catheter, follow the instructions from your health care provider. ??? Monitor any changes in your symptoms. Tell your health care provider about any changes. ??? If instructed, monitor your blood pressure at home. Report changes as told by your health care provider. ??? Keep all follow-up visits. This is important. Contact a health care provider if: ??? You have uncomfortable bladder contractions that you cannot control (spasms). ??? You leak urine with the spasms. Get help right away if: ??? You have chills or a fever. ??? You have blood in your urine. ??? You have a catheter and the following happens: ? Your catheter stops draining urine. ? Your catheter falls out. Summary ??? Acute urinary retention is a condition in which a person is unable to pass urine or can only pass a little urine. If left untreated, this condition can result in kidney damage or other serious complications. ??? An enlarged prostate may cause this condition. As men age, their prostate gland may become larger and may press or squeeze on the bladder or the urethra. ??? Treatment for this condition may include medicines and placement of an indwelling urinary catheter. ??? Monitor any changes in your symptoms. Tell your health care provider about any changes. This information is not intended to replace advice given to you by your health care provider. Make sure you discuss any questions you have with your health care provider. Document Revised: 08/05/2021 Document Reviewed: 08/05/2021 [employer] Patient Education ? 2023 [employer]. [facility] 03-19-2025 Note Patient Education Urology Acute Urinary Retention, Male Acute urinary retention is a condition in which a person is unable to pass urine or can only pass a little urine. This condition can happen suddenly and last for a short time. If left untreated, it can become long-term (chronic) and result in kidney damage or other serious complications. What are the causes? This condition may be caused by: ??? Obstruction or narrowing of the tube that drains the bladder (urethra). This may be caused by surgery, problems with nearby organs, or injury to the bladder or urethra. ??? Problems with the nerves in the bladder. ??? Tumors in the area of the pelvis, bladder, or urethra. ??? Certain medicines. ??? Bladder or urinary tract infection. ??? Constipation. What increases the risk? This condition is more likely to develop in older men. As men age, their prostate may become larger and may start to press or squeeze on the bladder or the urethra. Other chronic health conditions can increase the risk of acute urinary retention. These include: ??? Diseases such as multiple sclerosis. ??? Spinal cord injuries. ??? Diabetes. ??? Degenerative cognitive conditions, such as delirium or dementia. ??? Psychological conditions. A man may hold his urine due to trauma or because he does not want to use the bathroom. What are the signs or symptoms? Symptoms of this condition include: ??? Trouble urinating. ??? Pain in the lower abdomen. How is this diagnosed? This condition is diagnosed based on a physical exam and your medical history. You may also have other tests, including: ??? An ultrasound of the bladder or kidneys or both. ??? Blood tests. ??? A urine analysis. ??? Additional tests may be needed, such as a CT scan, MRI, and kidney or bladder function tests. How is this treated? Treatment for this condition may include: ??? Medicines. ??? Placing a thin, sterile tube (catheter) into the bladder to drain urine out of the body. This is called an indwelling urinary catheter. After it is inserted, the catheter is held in place with a small balloon that is filled with sterile water. Urine drains from the catheter into a collection bag outside of the body. ??? Behavioral therapy. ??? Treatment for other conditions. If needed, you may be treated in the hospital for kidney function problems or to manage other complications. Follow these instructions at home: Medicines ??? Take hfra-ees-fiuttig and prescription medicines only as told by your health care provider. Avoid certain medicines, such as decongestants, antihistamines, and some prescription medicines. Do not take any medicine unless your health care provider approves. ??? If you were prescribed an antibiotic medicine, take it as told by your health care provider. Do not stop using the antibiotic even if you start to feel better. General instructions ??? Do not use any products that contain nicotine or tobacco. These products include cigarettes, chewing tobacco, and vaping devices, such as e-cigarettes. If you need help quitting, ask your health care provider. ??? Drink enough fluid to keep your urine pale yellow. ??? If you have an indwelling urinary catheter, follow the instructions from your health care provider. ??? Monitor any changes in your symptoms. Tell your health care provider about any changes. ??? If instructed, monitor your blood pressure at home. Report changes as told by your health care provider. ??? Keep all follow-up visits. This is important. Contact a health care provider if: ??? You have uncomfortable bladder contractions that you cannot control (spasms). ??? You leak urine with the spasms. Get help right away if: ??? You have chills or a fever. ??? You have blood in your urine. ??? You have a catheter and the following happens: ? Your catheter stops draining urine. ? Your catheter falls out. Summary ??? Acute urinary retention is a condition in which a person is unable to pass urine or can only pass a little urine. If left untreated, this condition can result in kidney damage or other serious complications. ??? An enlarged prostate may cause this condition. As men age, their prostate gland may become larger and may press or squeeze on the bladder or the urethra. ??? Treatment for this condition may include medicines and placement of an indwelling urinary catheter. ??? Monitor any changes in your symptoms. Tell your health care provider about any changes. This information is not intended to replace advice given to you by your health care provider. Make sure you discuss any questions you have with your health care provider. Document Revised: 08/05/2021 Document Reviewed: 08/05/2021 [employer] Patient Education ? 2023 [employer]. [facility] 02-15-2025 Progress note Note Date/Time February 15, 2025 7:54am [facility] [address] [place] [address] Hospitalist Progress Note Signed Patient: Bailee Traore MR#: [id number] : 1945 Acct:[id number] Age/Sex: 79 / M Adm Date: 5 Loc: Room: 4W9653-1 Type: ADM IN Attending Dr: Omkar Louie MD Copies to: ~ Date of Service: 02/14/2025 Subjective Subjective Narrative: Patient is seen and examined on follow-up, has been doing well with physical therapy and was scheduled to discharge home today. Denies any pain or discomfort vital signs reviewed, blood pressure has been slightly elevated. Will not make any adjustments at this time, considering his age. No further issues at this time. Exam Physical Exam Vital Signs: Temp Pulse Resp BP Pulse Ox O2 Del Method 97.2 F L 60 18 131/78 96 Room Air 02/14/25 11:02/14/25 11:02/14/25 11:02/14/25 11:25 11:09 02/14/25 11:09 Narrative: THSRC-[id number]-xyldlsdpi, elderly, cooperative, comfortable CARDIAC?normal rate, regular rhythm, normal S1 & S2. PULM?CTA bilaterally, RA, no accessory muscle use or cough noted ABD ? Soft. Bowel sounds are normal. No distention No tenderness EXTREM?+1 edema BLE calves nontender Objective Lab Results 02/07/25 04:58 02/07/25 04:58 Meds Allergies and Active Meds Allergies No Known Allergies Allergy (Verified 01/26/25 07:34) Active Meds: Active Medications Generic Name Dose Route Start Last Admin Trade Name Freq PRN Reason Stop Dose Admin Acetaminophen 500 mg 01/30/25 21:03 02/07/25 20:25 Acetaminophen 500 Mg Tablet PO 01/30/26 21:02 500 mg Q4H PRN Administration Pain Al Hydrox/Mg Hydrox/Simethicone 30 ml 01/30/25 21:03 Mag Hydrox/Al Hydrox/Simeth 30 Ml Udc PO 01/30/26 21:02 Q4H PRN Indigestion Apixaban 5 mg 01/31/25 09:00 02/14/25 08:12 Apixaban 5 Mg Tablet PO 01/31/26 08:59 5 mg BID AL Administration Aspirin 81 mg 02/04/25 09:00 02/14/25 08:11 Aspirin 81 Mg Tablet.Dr PO 02/04/26 08:59 81 mg DAILY AL Administration Atorvastatin Calcium 80 mg 01/31/25 21:00 02/13/25 20:23 Atorvastatin 80 Mg Tablet PO 01/31/26 20:59 80 mg QPM AL Administration Bisacodyl 10 mg 01/30/25 21:03 Bisacodyl 10 Mg Supp.Rect MD 01/30/26 21:02 DAILY PRN Constipation Docusate Sodium 100 mg 01/30/25 21:03 02/10/25 20:22 Docusate 100 Mg Capsule PO 01/30/26 21:02 100 mg BID PRN Administration Constipation Docusate Sodium 283 mg 01/30/25 21:03 Docusate Enema 283 Mg/5 Ml Enema MD 01/30/26 21:02 DAILY PRN Constipation Lactulose 30 gm 01/30/25 21:03 Lactulose 20 Gm/30 Ml Udc PO 01/30/26 21:02 DAILY PRN Constipation Levetiracetam 1,000 mg 01/31/25 09:00 02/14/25 08:11 Levetiracetam 500 Mg Tablet PO 01/31/26 08:59 1,000 mg BID AL Administration Levothyroxine Sodium 50 mcg 01/31/25 06:30 02/14/25 04:37 Levothyroxine 50 Mcg Tablet PO 01/31/26 06:29 50 mcg DAILY.0630 AL Administration Lisinopril 20 mg 01/31/25 09:00 02/14/25 08:12 Lisinopril 20 Mg Tablet PO 01/31/26 08:59 20 mg DAILY AL Administration Metoprolol Succinate 50 mg 01/31/25 09:00 02/14/25 08:12 Metoprolol Succinate 50 Mg Tab.Er.24h PO 01/31/26 08:59 50 mg DAILY AL Administration Pantoprazole Sodium 40 mg 01/31/25 18:00 02/13/25 18:03 Pantoprazole 40 Mg Tablet.Dr PO 01/31/26 17:59 40 mg DAILY.PC.SUPPER AL Administration Quetiapine Fumarate 25 mg 01/31/25 22:00 02/13/25 20:22 Quetiapine Fumarate 25 Mg Tablet PO 01/31/26 21:59 25 mg QHS AL Administration Sennosides 17.2 mg 01/31/25 12:00 02/10/25 20:23 Sennosides 8.6 Mg Tablet PO 01/31/26 11:59 17.2 mg DAILY@12 PRN Administration If no BM in 2 days A&P - Hospitalist Assessment/Plan (1) Seizure disorder, focal motor: (2) Hemiballismus: (3) Atrial fibrillation: (4) Hypothyroid: (5) Hyperlipidemia: Plan Seizure-Like Episode/Hemiballismus Impaired mobility and activities of daily living ?Plan of care for rehabilitation, PT/OT, DVT prophylaxis per PM&R team ?Levetiracetam. Post LP 02/03 further management per neurology. Eventual repeat MRI New onset paroxysmal atrial fibrillation ? On metoprolol, apixaban?heart rate remained controlled Chronic conditions: 1. Hypertension?metoprolol, lisinopril?BP has been slightly elevated, will not make any changes at this time considering his age. 2. Hypothyroidism?levothyroxine 3. Hyperlipidemia?atorvastatin 4. Right lower extremity skin lesion?following up with the [place] outpatient Documented By: Priscilla Rock APRN 02/14/25 1511 Signed By: <Electronically signed by JOAQUÍN Rock> 02/14/25 1759 <Electronically signed by Elba Sheppard MD> 02/15/25 [id number] [facility] Work Phone: 1(876) 729-267703-21-2025 [place] [address] Hospitalist Progress Note Signed Patient: Bailee Traore MR#: [id number] : 1945 Acct:[id number] Age/Sex: 79 / M Adm Date: 5 Loc: Room: [address] [place] [address] Type: ADM IN Attending Dr: Omkar Louie MD Copies to: ~ Date of Service: 02/14/2025 Subjective Subjective Narrative: Patient is seen and examined on follow-up, has been doing well with physical therapy and was scheduled to discharge home today. Denies any pain or discomfort vital signs reviewed, blood pressure has been slightly elevated. Will not make any adjustments at this time, considering his age. No further issues at this time. Exam Physical Exam Vital Signs: Temp Pulse Resp BP Pulse Ox O2 Del Method 97.2 F L 60 18 131/78 96 Room Air 02/14/25 11:09 02/14/25 11:09 02/14/25 11:09 02/14/25 11:09 02/14/25 11:09 02/14/25 11:09 Narrative: [id number], elderly, cooperative, comfortable CARDIAC?normal rate, regular rhythm, normal S1 & S2. PULM?CTA bilaterally, RA, no accessory muscle use or cough noted ABD ? Soft. Bowel sounds are normal. No distention No tenderness EXTREM?+1 edema BLE calves nontender Objective Lab Results 02/07/25 04:58 02/07/25 04:58 Meds Allergies and Active Meds Allergies No Known Allergies Allergy (Verified 01/26/25 07:34) Active Meds: Active Medications Generic Name Dose Route Start Last Admin Trade Name Freq PRN Reason Stop Dose Admin Acetaminophen 500 mg 01/30/25 21:03 02/07/25 20:25 Acetaminophen 500 Mg Tablet PO 01/30/26 21:02 500 mg Q4H PRN Administration Pain Al Hydrox/Mg Hydrox/Simethicone 30 ml 01/30/25 21:03 Mag Hydrox/Al Hydrox/Simeth 30 Ml Udc PO 01/30/26 21:02 Q4H PRN Indigestion Apixaban 5 mg 01/31/25 09:00 02/14/25 08:12 Apixaban 5 Mg Tablet PO 01/31/26 08:59 5 mg BID AL Administration Aspirin 81 mg 02/04/25 09:00 02/14/25 08:11 Aspirin 81 Mg Tablet.Dr PO 02/04/26 08:59 81 mg DAILY AL Administration Atorvastatin Calcium 80 mg 01/31/25 21:00 02/13/25 20:23 Atorvastatin 80 Mg Tablet PO 01/31/26 20:59 80 mg QPM AL Administration Bisacodyl 10 mg 01/30/25 21:03 Bisacodyl 10 Mg Supp.Rect MD 01/30/26 21:02 DAILY PRN Constipation Docusate Sodium 100 mg 01/30/25 21:03 02/10/25 20:22 Docusate 100 Mg Capsule PO 01/30/26 21:02 100 mg BID PRN Administration Constipation Docusate Sodium 283 mg 01/30/25 21:03 Docusate Enema 283 Mg/5 Ml Enema MD 01/30/26 21:02 DAILY PRN Constipation Lactulose 30 gm 01/30/25 21:03 Lactulose 20 Gm/30 Ml Udc PO 01/30/26 21:02 DAILY PRN Constipation Levetiracetam 1,000 mg 01/31/25 09:00 02/14/25 08:11 Levetiracetam 500 Mg Tablet PO 01/31/26 08:59 1,000 mg BID AL Administration Levothyroxine Sodium 50 mcg 01/31/25 06:30 02/14/25 04:37 Levothyroxine 50 Mcg Tablet PO 01/31/26 06:29 50 mcg DAILY.0630 AL Administration Lisinopril 20 mg 01/31/25 09:00 02/14/25 08:12 Lisinopril 20 Mg Tablet PO 01/31/26 08:59 20 mg DAILY AL Administration Metoprolol Succinate 50 mg 01/31/25 09:00 02/14/25 08:12 Metoprolol Succinate 50 Mg Tab.Er.24h PO 01/31/26 08:59 50 mg DAILY AL Administration Pantoprazole Sodium 40 mg 01/31/25 18:00 02/13/25 18:03 Pantoprazole 40 Mg Tablet.Dr PO 01/31/26 17:59 40 mg DAILY.PC.SUPPER AL Administration Quetiapine Fumarate 25 mg 01/31/25 22:00 02/13/25 20:22 Quetiapine Fumarate 25 Mg Tablet PO 01/31/26 21:59 25 mg QHS AL Administration Sennosides 17.2 mg 01/31/25 12:00 02/10/25 20:23 Sennosides 8.6 Mg Tablet PO 01/31/26 11:59 17.2 mg DAILY@12 PRN Administration If no BM in 2 days A&P - Hospitalist Assessment/Plan (1) Seizure disorder, focal motor: (2) Hemiballismus: (3) Atrial fibrillation: (4) Hypothyroid: (5) Hyperlipidemia: Plan Seizure-Like Episode/Hemiballismus Impaired mobility and activities of daily living ?Plan of care for rehabilitation, PT/OT, DVT prophylaxis per PM&R team ?Levetiracetam. Post LP 02/03 further management per neurology. Eventual repeat MRI New onset paroxysmal atrial fibrillation ? On metoprolol, apixaban?heart rate remained controlled Chronic conditions: 1. Hypertension?metoprolol, lisinopril?BP has been slightly elevated, will not make any changes at this time considering his age. 2. Hypothyroidism?levothyroxine 3. Hyperlipidemia?atorvastatin 4. Right lower extremity skin lesion?following up with the [place] outpatient Documented By: Priscilla Rock APRN 02/14/25 1511 Signed By: 02/14/25 1759 02/15/25 0754 [facility]03-20-2025 Progress note Author Omkar Louie [facility] Note Date/Time February 14, 2025 9:5 6am [facility] [address] [place] [address] Physiatry(Rehab) Progress Note Signed Patient: Bailee Traore MR#: [id number] : 1945 Acct:[id number] Age/Sex: 79 / M Adm Date: 5 Loc: 5T Room: [address] [place] [address] Type: ADM IN Attending Dr: Omkar Louie MD Copies to: ~ Date of Service: 02/14/2025 Subjective Subjective Narrative: Mr. Traore is a 79 year old male who presents with multifactorial functional decline in the setting of what was initially thought to be acute stroke, but on further evaluation is non-traumatic brain dysfunction, broad differential including seizure, autoimmune encephalitis, brain tumor such as glioma. Per chart review, the patient was found down at home. Upon presentation to the hospital, NIH score was 10. 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 Did not receive thrombolytic therapy due to unknown timeline. Was also noted to be in afib with RVR on presentation and was given 5 mg IV Lopressor with conversion back to NSR. He also was noted to have a focal seizure. Has since been started on Keppra and PRN Ativan. Ongoing workup per neurology as noted. Possibly pending lumbar puncture which would require Eliquis to be on hold. Defer to them for timing of that. Interval history: Seen and examined at bedside. He is doing well. We reinforced discharge planning which is pending prior authorization to insurance. He continues to improve with therapy. Barrier remains cognition. No other acute issues at thistime. Review of Systems Review of Systems Unobtainable due to mental status Exam Physical Exam Vital Signs: Temp Pulse Resp BP Pulse Ox O2 Del Method 97.5 F L 60 18 156/80 H 94 L Room Air 02/14/25 07:04 02/14/25 07:04 02/14/25 07:04 02/14/25 07:04 02/14/25 07:04 02/14/25 07:12 Narrative: Pleasant No acute distress Alert and oriented x 3 but delayed processing and mild confusion noted Generalized weakness Ataxic Objective Labs 02/07/25 04:58 02/07/25 04:58 Medications and Allergies Allergies and Active Meds: Allergies No Known Allergies Allergy (Verified 01/26/25 07:34) Active Medications Generic Name Dose Route Start Last Admin Trade Name Freq PRN Reason Stop Dose Admin Acetaminophen 500 mg 01/30/25 21:03 02/07/25 20:25 Acetaminophen 500 Mg Tablet PO 01/30/26 21:02 500 mg Q4H PRN Administration Pain Al Hydrox/Mg Hydrox/Simethicone 30 ml 01/30/25 21:03 Mag Hydrox/Al Hydrox/Simeth 30 Ml Udc PO 01/30/26 21:02 Q4H PRN Indigestion Apixaban 5 mg 01/31/25 09:00 02/13/25 20:22 Apixaban 5 Mg Tablet PO 01/31/26 08:59 5 mg BID AL Administration Aspirin 81 mg 02/04/25 09:00 02/13/25 08:30 Aspirin 81 Mg Tablet.Dr PO 02/04/26 08:59 81 mg DAILY AL Administration Atorvastatin Calcium 80 mg 01/31/25 21:00 02/13/25 20:23 Atorvastatin 80 Mg Tablet PO 01/31/26 20:59 80 mg QPM AL Administration Bisacodyl 10 mg 01/30/25 21:03 Bisacodyl 10 Mg Supp.Rect MD 01/30/26 21:02 DAILY PRN Constipation Docusate Sodium 100 mg 01/30/25 21:03 02/10/25 20:22 Docusate 100 Mg Capsule PO 01/30/26 21:02 100 mg BID PRN Administration Constipation Docusate Sodium 283 mg 01/30/25 21:03 Docusate Enema 283 Mg/5 Ml Enema MD 01/30/26 21:02 DAILY PRN Constipation Lactulose 30 gm 01/30/25 21:03 Lactulose 20 Gm/30 Ml Udc PO 01/30/26 21:02 DAILY PRN Constipation Levetiracetam 1,000 mg 01/31/25 09:00 02/13/25 20:23 Levetiracetam 500 Mg Tablet PO 01/31/26 08:59 1,000 mg BID AL Administration Levothyroxine Sodium 50 mcg 01/31/25 06:30 02/14/25 04:37 Levothyroxine 50 Mcg Tablet PO 01/31/26 06:29 50 mcg DAILY.0630 AL Administration Lisinopril 20 mg 01/31/25 09:00 02/13/25 08:30 Lisinopril 20 Mg Tablet PO 01/31/26 08:59 20 mg DAILY AL Administration Metoprolol Succinate 50 mg 01/31/25 09:00 02/13/25 08:30 Metoprolol Succinate 50 Mg Tab.Er.24h PO 01/31/26 08:59 50 mg DAILY AL Administration Pantoprazole Sodium 40 mg 01/31/25 18:00 02/13/25 18:03 Pantoprazole 40 Mg Tablet. PO 01/31/26 17:59 40 mg DAILY.PC.SUPPER AL Administration Quetiapine Fumarate 25 mg 01/31/25 22:00 02/13/25 20:22 Quetiapine Fumarate 25 Mg Tablet PO 01/31/26 21:59 25 mg QHS AL Administration Sennosides 17.2 mg 01/31/25 12:00 02/10/25 20:23 Sennosides 8.6 Mg Tablet PO 01/31/26 11:59 17.2 mg DAILY@12 PRN Administration If no BM in 2 days Assessment/Plan Assessment/Plan (1) Nontraumatic brain injury: Plan: PT to improve pt's strength, endurance, bed mobility, transfers (sit-stand), standing balance, gait quality on level surfaces and stairs, coordination and functional ADL skills. Will also work to improve pt's safety awareness during transfers and ambulation. OT for basic ADL re-training (bathing, dressing, toileting, continence, grooming, feeding, transferring), to increase activity tolerance and functional mobility and to evaluate for adaptive and assistive devices. Will work to improve pt's endurance and educate pt on fall prevention and energy conservationtechniques-pacing strategies and proper breathing techniques during functional tasks. CONSTRUCTION OR LEAK GANG LABORER to evaluate and treat patient?s cognition, language and communication skills, assess swallow function. Patient education Pressure ulcer prophylaxis; encourage mobilization, frequent postural changes, pressure-relief techniques DVT prophylaxis Encourage deep breathing exercise incentive spirometry. Monitor bladder. Toileting schedule. Continue current bladder management, with scans as needed and CIC if needed. Start bowel care program every day to obtain continence, prevent ileus. Maintain fall precautions Gait and balance retraining Provision of the necessary gait aids and functional adaptive equipment to enhance the patient's a functional faith Encourage deep breathing exercises and incentive spirometry RD evaluation Ensure adequate nutrition and hydration Discharge planning. 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 Traore is a 79 year old male who presents with multifactorial functional decline in the setting of what was initially thought to be acute stroke, but on further evaluation is non-traumatic brain dysfunction, broad differential including seizure, autoimmune encephalitis, brain tumor such as glioma. -No significant changes. Progressing with therapy. Reinforced discharge planning and plan of care. He is anxious about a change in facility. Pending prior authorization at the [facility] to assist with management of comorbid medical conditions Pain control: Limit sedating medications. Bowel and bladder: Incontinent at times Skin: As ordered, turn and position for offloading. Sleep: Optimize sleep / wake to reduce seizure risk DVT prophylaxis: As ordered, anticoagulated with Eliquis Functional status: Impaired, see PT/OT/CONSTRUCTION OR LEAK GANG LABORER. Discharge planning: [facility] facility. Referral sent to the [facility]. Patient was personally seen by me, Dr. Louie, on the day of encounter, reviewed the history and the relevant portions of the chart, including current orders, allied health and search engine optimization consultant notes, labs/imaging and performed bender elements of exam and I formulated the plan of care and facilitated the medical decision making. I completed a substantive portion of this encounter, the medical decision makingportion of this note in its entirety, including Allied health note review, nursing note review, search engine optimization consultant note review, discussion with nursing and case management, and more than 50% of my time was spent on counseling and coordination of care, time spent 40 minutes Documented By: Omkar Louie MD 02/14/25 0814 Signed By: <Electronically signed by Omkar Louie MD> 02/14/25 0956 [facility] Work Phone: [phone]) [phone] [place] [address] Physiatry(Rehab) Progress Note Signed Patient: Bailee Traore MR#: [id number] : 1945 Acct:[id number] Age/Sex: 79 / M Adm Date: 5 Loc: 5T Room: [address] [place] [address] Type: ADM IN Attending Dr: Omkar Louie MD Copies to: ~ Date of Service: 02/14/2025 Subjective Subjective Narrative: Mr. Traore is a 79 year old male who presents with multifactorial functional decline in the setting of what was initially thought to be acute stroke, but on further evaluation is non-traumatic braindysfunction, broad differential including seizure, autoimmune encephalitis, brain tumor such as glioma. Per chart review, the patient was found down at home. Upon presentation to the hospital, NIH score was 10. 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 Did not receive thrombolytic therapy due to unknown timeline. Was also noted to be in afib with RVR on presentation and was given 5 mg IV Lopressor with conversion back to NSR. He also was noted to have a focal seizure. Has since been started on Keppra and PRN Ativan. Ongoing workup per neurology as noted. Possibly pending lumbar puncture which would require Eliquisto be on hold. Defer to them for timing of that. Interval history: Seen and examined at bedside. He is doing well. We reinforced discharge planning which is pending prior authorization to insurance. He continues to improve with therapy. Barrier remains cognition. Noother acute issues at thistime. Review of Systems Review of Systems Unobtainable due to mental status Exam Physical Exam Vital Signs: Temp Pulse Resp BP Pulse Ox O2 Del Method 97.5 F L 60 18 156/80 H 94 L Room Air 02/14/25 07:04 02/14/25 07:04 02/14/25 07:04 02/14/25 07:04 02/14/25 07:04 02/14/25 07:12 Narrative: Pleasant No acute distress Alert and oriented x 3 but delayed processing and mild confusion noted Generalized weakness Ataxic Objective Labs 02/07/25 04:58 02/07/25 04:58 Medications and Allergies Allergies and Active Meds: Allergies No Known Allergies Allergy (Verified 01/26/25 07:34) Active Medications Generic Name Dose Route Start Last Admin Trade Name Freq PRN Reason Stop Dose Admin Acetaminophen 500 mg 01/30/25 21:03 02/07/25 20:25 Acetaminophen 500 Mg Tablet PO 01/30/26 21:02 500 mg Q4H PRN Administration Pain Al Hydrox/Mg Hydrox/Simethicone 30 ml 01/30/25 21:03 Mag Hydrox/Al Hydrox/Simeth 30 Ml Udc PO 01/30/26 21:02 Q4H PRN Indigestion Apixaban 5 mg 01/31/25 09:00 02/13/25 20:22 Apixaban 5 Mg Tablet PO 01/31/26 08:59 5 mg BID AL Administration Aspirin 81 mg 02/04/25 09:00 02/13/25 08:30 Aspirin 81 Mg Tablet. PO 02/04/26 08:59 81 mg DAILY AL Administration Atorvastatin Calcium 80 mg 01/31/25 21:00 02/13/25 20:23 Atorvastatin 80 Mg Tablet PO 01/31/26 20:59 80 mg QPM AL Administration Bisacodyl 10 mg 01/30/25 21:03 Bisacodyl 10 Mg Supp.Rect MD 01/30/26 21:02 DAILY PRN Constipation Docusate Sodium 100 mg 01/30/25 21:03 02/10/25 20:22 Docusate 100 Mg Capsule PO 01/30/26 21:02 100 mg BID PRN Administration Constipation Docusate Sodium 283 mg 01/30/25 21:03 Docusate Enema 283 Mg/5 Ml Enema MD 01/30/26 21:02 DAILY PRN Constipation Lactulose 30 gm 01/30/25 21:03 Lactulose 20 Gm/30 Ml Udc PO 01/30/26 21:02 DAILY PRN Constipation Levetiracetam 1,000 mg 01/31/25 09:00 02/13/25 20:23 Levetiracetam 500 Mg Tablet PO 01/31/26 08:59 1,000 mg BID AL Administration Levothyroxine Sodium 50 mcg 01/31/25 06:30 02/14/25 04:37 Levothyroxine 50 Mcg Tablet PO 01/31/26 06:29 50 mcg DAILY.0630 AL Administration Lisinopril 20 mg 01/31/25 09:00 02/13/25 08:30 Lisinopril 20 Mg Tablet PO 01/31/26 08:59 20 mg DAILY AL Administration Metoprolol Succinate 50 mg 01/31/25 09:00 02/13/25 08:30 Metoprolol Succinate 50 Mg Tab.Er.24h PO 01/31/26 08:59 50 mg DAILY AL Administration Pantoprazole Sodium 40 mg 01/31/25 18:00 02/13/25 18:03 Pantoprazole 40 Mg Tablet. PO 01/31/26 17:59 40 mg DAILY.PC.SUPPER AL Administration Quetiapine Fumarate 25 mg 01/31/25 22:00 02/13/25 20:22 Quetiapine Fumarate 25 Mg Tablet PO 01/31/26 21:59 25 mg QHS AL Administration Sennosides 17.2 mg 01/31/25 12:00 02/10/25 20:23 Sennosides 8.6 Mg Tablet PO 01/31/26 11:59 17.2 mg DAILY@12 PRN Administration If no BM in 2 days Assessment/Plan Assessment/Plan (1) Nontraumatic brain injury: Plan: PT to improve pt's strength, endurance, bed mobility, transfers (sit-stand), standing balance, gaitquality on level surfaces and stairs, coordination and functional ADL skills. Will also work to improve pt's safety awareness during transfers and ambulation. OT for basic ADL re-training (bathing, dressing, toileting, continence, grooming, feeding, transferring), to increase activity tolerance and functional mobility and to evaluate for adaptive and assistive devices. Will work to improve pt's endurance and educate pt on fall prevention and energy conser vationtechniques-pacing strategies and proper breathing techniques during functional tasks. CONSTRUCTION OR LEAK GANG LABORER to evaluate and treat patient?s cognition, language and communication skills, assess swallow function. Patient education Pressure ulcer prophylaxis; encourage mobilization, frequent postural changes, pressure-relief techniques DVT prophylaxis Encourage deep breathing exercise incentive spirometry. Monitor bladder. Toileting schedule. Continue current bladder management, with scans as needed and CIC if needed. Start bowel care program every day to obtain continence, prevent ileus. Maintain fall precautions Gait and balance retraining Provision of the necessary gait aids and functional adaptive equipment to enhance the patient's a functional faith Encourage deep breathing exercises and incentive spirometry RD evaluation Ensure adequate nutrition and hydration Discharge planning. 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 Traore is a 79 year old male who presents with multifactorial functional decline in the setting of what was initially thought to be acute stroke, but on further evaluation is non-traumatic braindysfunction, broad differential including seizure, autoimmune encephalitis, brain tumor such as glioma. -No significant changes. Progressing with therapy. Reinforced discharge planning and plan of care. He is anxious about a change in facility. Pending prior authorization at the [facility] to assist with management of comorbid medical conditions Pain control: Limit sedating medications. Bowel and bladder: Incontinent at times Skin: As ordered, turn and position for offloading. Sleep: Optimize sleep / wake to reduce seizure risk DVT prophylaxis: As ordered, anticoagulated with Eliquis Functional status: Impaired, see PT/OT/CONSTRUCTION OR LEAK GANG LABORER. Discharge planning: [facility] facility. Referral sent to the [facility]. Patient was personally seen by me, Dr. Louie, on the day of encounter, reviewed the history and therelevant portions of the chart, including current orders, allied health and search engine optimization consultant notes, labs/imaging and performed bender elements of exam and I formulated the plan of care and facilitated the medical decision making. I completed a substantive portion of this encounter, the medical decision makingportion of this note in its entirety, including Allied health note review, nursing note review, search engine optimization consultant note review,discussion with nursing and case management, and more than 50% of my time was spent on counseling and coordination of care, time spent 40 minutes Documented By: Omkar Louie MD 02/14/25 0814 Signed By: 02/14/25 0956 [facility]03-18-2025 Progress note Author Omkar Louie [facility] Note Date/Time February 12, 2025 2:4 5pm [facility] [address] [place] [address] Physiatry(Rehab) Progress Note Signed Patient: Bailee Traore MR#: [id number] : 1945 Acct:[id number] Age/Sex: 79 / M Adm Date: 5 Loc: Room: 1Q0998-5 Type: ADM IN Attending Dr: Omkar Louie MD Copies to: ~ Date of Service: 02/12/2025 Subjective Subjective Narrative: Mr. Traore is a 79 year old male who presents with multifactorial functional decline in the setting of what was initially thought to be acute stroke, but on further evaluation is non-traumatic brain dysfunction, broad differential including seizure, autoimmune encephalitis, brain tumor such as glioma. Per chart review, the patient was found down at home. Upon presentation to the hospital, NIH score was 10. 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 Did not receive thrombolytic therapy due to unknown timeline. Was also noted to be in afib with RVR on presentation and was given 5 mg IV Lopressor with conversion back to NSR. He also was noted to have a focal seizure. Has since been started on Keppra and PRN Ativan. Ongoing workup per neurology as noted. Possibly pending lumbar puncture which would require Eliquis to be on hold. Defer to them for timing of that. Interval history: As reviewed at team meeting. Patient seen and examined at bedside. He is surrounded by his friend Steffen, his niece, and his brother. All questions answered and family brought up-to-date. Review of Systems Review of Systems All other systems reviewed & are negative unless noted below or in HPI Exam Physical Exam Vital Signs: Temp Pulse Resp BP Pulse Ox O2 Del Method 98.1 F 66 18 118/68 97 Room Air 02/12/25 14:19 02/12/25 14:19 02/12/25 14:19 02/12/25 14:19 02/12/25 14:19 02/12/25 14:19 Narrative: Pleasant No acute distress Alert and oriented x 3 but delayed processing and mild confusion noted Generalized weakness Ataxic Objective Labs 02/07/25 04:58 02/07/25 04:58 Medications and Allergies Allergies and Active Meds: Allergies No Known Allergies Allergy (Verified 01/26/25 07:34) Active Medications Generic Name Dose Route Start Last Admin Trade Name Freq PRN Reason Stop Dose Admin Acetaminophen 500 mg 01/30/25 21:03 02/07/25 20:25 Acetaminophen 500 Mg Tablet PO 01/30/26 21:02 500 mg Q4H PRN Administration Pain Al Hydrox/Mg Hydrox/Simethicone 30 ml 01/30/25 21:03 Mag Hydrox/Al Hydrox/Simeth 30 Ml Udc PO 01/30/26 21:02 Q4H PRN Indigestion Apixaban 5 mg 01/31/25 09:00 02/12/25 08:06 Apixaban 5 Mg Tablet PO 01/31/26 08:59 5 mg BID AL Administration Aspirin 81 mg 02/04/25 09:00 02/12/25 08:06 Aspirin 81 Mg Tablet. PO 02/04/26 08:59 81 mg DAILY AL Administration Atorvastatin Calcium 80 mg 01/31/25 21:00 02/11/25 21:46 Atorvastatin 80 Mg Tablet PO 01/31/26 20:59 80 mg QPM AL Administration Bisacodyl 10 mg 01/30/25 21:03 Bisacodyl 10 Mg Supp.Rect MD 01/30/26 21:02 DAILY PRN Constipation Docusate Sodium 100 mg 01/30/25 21:03 02/10/25 20:22 Docusate 100 Mg Capsule PO 01/30/26 21:02 100 mg BID PRN Administration Constipation Docusate Sodium 283 mg 01/30/25 21:03 Docusate Enema 283 Mg/5 Ml Enema MD 01/30/26 21:02 DAILY PRN Constipation Lactulose 30 gm 01/30/25 21:03 Lactulose 20 Gm/30 Ml Udc PO 01/30/26 21:02 DAILY PRN Constipation Levetiracetam 1,000 mg 01/31/25 09:00 02/12/25 08:06 Levetiracetam 500 Mg Tablet PO 01/31/26 08:59 1,000 mg BID AL Administration Levothyroxine Sodium 50 mcg 01/31/25 06:30 02/12/25 06:09 Levothyroxine 50 Mcg Tablet PO 01/31/26 06:29 50 mcg DAILY.0630 AL Administration Lisinopril 20 mg 01/31/25 09:00 02/12/25 08:06 Lisinopril 20 Mg Tablet PO 01/31/26 08:59 20 mg DAILY AL Administration Metoprolol Succinate 50 mg 01/31/25 09:00 02/12/25 08:07 Metoprolol Succinate 50 Mg Tab.Er.24h PO 01/31/26 08:59 50 mg DAILY AL Administration Pantoprazole Sodium 40 mg 01/31/25 18:00 02/11/25 17:22 Pantoprazole 40 Mg Tablet. PO 01/31/26 17:59 40 mg DAILY.PC.SUPPER AL Administration Quetiapine Fumarate 25 mg 01/31/25 22:00 02/11/25 21:46 Quetiapine Fumarate 25 Mg Tablet PO 01/31/26 21:59 25 mg QHS AL Administration Sennosides 17.2 mg 01/31/25 12:00 02/10/25 20:23 Sennosides 8.6 Mg Tablet PO 01/31/26 11:59 17.2 mg DAILY@12 PRN Administration If no BM in 2 days Assessment/Plan Assessment/Plan (1) Nontraumatic brain injury: Plan: PT to improve pt's strength, endurance, bed mobility, transfers (sit-stand), standing balance, gait quality on level surfaces and stairs, coordination and functional ADL skills. Will also work to improve pt's safety awareness during transfers and ambulation. OT for basic ADL re-training (bathing, dressing, toileting, continence, grooming, feeding, transferring), to increase activity tolerance and functional mobility and to evaluate for adaptive and assistive devices. Will work to improve pt's endurance and educate pt on fall prevention and energy conservationtechniques-pacing strategies and proper breathing techniques during functional tasks. CONSTRUCTION OR LEAK GANG LABORER to evaluate and treat patient?s cognition, language and communication skills, assess swallow function. Patient education Pressure ulcer prophylaxis; encourage mobilization, frequent postural changes, pressure-relief techniques DVT prophylaxis Encourage deep breathing exercise incentive spirometry. Monitor bladder. Toileting schedule. Continue current bladder management, with scans as needed and CIC if needed. Start bowel care program every day to obtain continence, prevent ileus. Maintain fall precautions Gait and balance retraining Provision of the necessary gait aids and functional adaptive equipment to enhance the patient's a functional faith Encourage deep breathing exercises and incentive spirometry RD evaluation Ensure adequate nutrition and hydration Discharge planning. 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 Traore is a 79 year old male who presents with multifactorial functional decline in the setting of what was initially thought to be acute stroke, but on further evaluation is non-traumatic brain dysfunction, broad differential including seizure, autoimmune encephalitis, brain tumor such as glioma. -Ambulatory 235 feet and able to do some stairs. We talked about plan of care going forward which includes an MRI in a few weeks and follow-up with neurology. Depending on characteristics of the lesion being investigated, he may or may not require additional workup or testing, possibly referral to oncology. He hasnot had any seizure episodes since he was started on the Keppra. We talked about no driving. Patient and family acknowledge need for continued rehab in a snf facility setting. They prefer if he remains close to the hospital and his current doctors. They [facility] the [facility]. Hospitalist to assist with management of comorbid medical conditions Pain control: Limit sedating medications. Bowel and bladder: Incontinent at times Skin: As ordered, turn and position for offloading. Sleep: Optimize sleep / wake to reduce seizure risk DVT prophylaxis: As ordered, anticoagulated with Eliquis Functional status: Impaired, see PT/OT/CONSTRUCTION OR LEAK GANG LABORER. Discharge planning: [facility] facility. Referral sent to the [facility]. Patient was personally seen by me, Dr. Louie, on the day of encounter, reviewed the history and the relevant portions of the chart, including current orders, allied health and search engine optimization consultant notes, labs/imaging and performed bender elements of exam and I formulated the plan of care and facilitated the medical decision making. I completed a substantive portion of this encounter, the medical decision makingportion of this note in its entirety, including Allied health note review, nursing note review, search engine optimization consultant note review, discussion with nursing and case management, and more than 50% of my time was spent on counseling and coordination of care, time spent 45 minutes In addition to above, patient's case reviewed at weekly team conference, discussed progress and goals of care, barriers/problems to date and discharge planning. Documented By: Omkar Louie MD 02/12/251442 Signed By: <Electronically signed by Omkar Louie MD> 02/12/251444 [facility] Work Phone: [phone]) 678-389903-18-2025 Progress note Author Omkar Louie [facility] Note Date/Time February 12, 2025 2:4 3pm [facility] [address] [place] [address] Physiatry(Rehab) Progress Note Signed Patient: Bailee Traore MR#: [id number] : 1945 Acct:[id number] Age/Sex: 79 / M Adm Date: 5 Loc: Room: 9P0603-1 Type: ADM IN Attending Dr: Omkar Louie MD Copies to: ~ Date of Service: 02/11/2025 Subjective Subjective Narrative: Mr. Traore is a 79 year old male who presents with multifactorial functional decline in the setting of what was initially thought to be acute stroke, but on further evaluation is non-traumatic brain dysfunction, broad differential including seizure, autoimmune encephalitis, brain tumor such as glioma. Per chart review, the patient was found down at home. Upon presentation to the hospital, NIH score was 10. 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 Did not receive thrombolytic therapy due to unknown timeline. Was also noted to be in afib with RVR on presentation and was given 5 mg IV Lopressor with conversion back to NSR. He also was noted to have a focal seizure. Has since been started on Keppra and PRN Ativan. Ongoing workup per neurology as noted. Possibly pending lumbar puncture which would require Eliquis to be on hold. Defer to them for timing of that. Interval history: Seen and examined at bedside. He denies new complaints. Remains pleasantly confused. min assist to supervision level for therapy, except for cognition Review of Systems Review of Systems All other systems reviewed & are negative unless noted below or in HPI Exam Physical Exam Vital Signs: Temp Pulse Resp BP Pulse Ox O2 Del Method 98.1 F 66 18 118/68 97 Room Air 02/12/25 14:19 02/12/25 14:19 02/12/25 14:19 02/12/25 14:19 02/12/25 14:19 02/12/25 14:19 Narrative: Pleasant No acute distress Alert and oriented x 3 but delayed processing and mild confusion noted Generalized weakness Ataxic Objective Labs 02/07/25 04:58 02/07/25 04:58 Medications and Allergies Allergies and Active Meds: Allergies No Known Allergies Allergy (Verified 01/26/25 07:34) Active Medications Generic Name Dose Route Start Last Admin Trade Name Freq PRN Reason Stop Dose Admin Acetaminophen 500 mg 01/30/25 21:03 02/07/25 20:25 Acetaminophen 500 Mg Tablet PO 01/30/26 21:02 500 mg Q4H PRN Administration Pain Al Hydrox/Mg Hydrox/Simethicone 30 ml 01/30/25 21:03 Mag Hydrox/Al Hydrox/Simeth 30 Ml Udc PO 01/30/26 21:02 Q4H PRN Indigestion Apixaban 5 mg 01/31/25 09:00 02/12/25 08:06 Apixaban 5 Mg Tablet PO 01/31/26 08:59 5 mg BID AL Administration Aspirin 81 mg 02/04/25 09:00 02/12/25 08:06 Aspirin 81 Mg Tablet.Dr GIL 02/04/26 08:59 81 mg DAILY AL Administration Atorvastatin Calcium 80 mg 01/31/25 21:00 02/11/25 21:46 Atorvastatin 80 Mg Tablet PO 01/31/26 20:59 80 mg QPM AL Administration Bisacodyl 10 mg 01/30/25 21:03 Bisacodyl 10 Mg Supp.Rect MD 01/30/26 21:02 DAILY PRN Constipation Docusate Sodium 100 mg 01/30/25 21:03 02/10/25 20:22 Docusate 100 Mg Capsule PO 01/30/26 21:02 100 mg BID PRN Administration Constipation Docusate Sodium 283 mg 01/30/25 21:03 Docusate Enema 283 Mg/5 Ml Enema MD 01/30/26 21:02 DAILY PRN Constipation Lactulose 30 gm 01/30/25 21:03 Lactulose 20 Gm/30 Ml Udc PO 01/30/26 21:02 DAILY PRN Constipation Levetiracetam 1,000 mg 01/31/25 09:00 02/12/25 08:06 Levetiracetam 500 Mg Tablet PO 01/31/26 08:59 1,000 mg BID AL Administration Levothyroxine Sodium 50 mcg 01/31/25 06:30 02/12/25 06:09 Levothyroxine 50 Mcg Tablet PO 01/31/26 06:29 50 mcg DAILY.0630 AL Administration Lisinopril 20 mg 01/31/25 09:00 02/12/25 08:06 Lisinopril 20 Mg Tablet PO 01/31/26 08:59 20 mg DAILY AL Administration Metoprolol Succinate 50 mg 01/31/25 09:00 02/12/25 08:07 Metoprolol Succinate 50 Mg Tab.Er.24h PO 01/31/26 08:59 50 mg DAILY AL Administration Pantoprazole Sodium 40 mg 01/31/25 18:00 02/11/25 17:22 Pantoprazole 40 Mg Tablet.Dr GIL 01/31/26 17:59 40 mg DAILY.PC.SUPPER AL Administration Quetiapine Fumarate 25 mg 01/31/25 22:00 02/11/25 21:46 Quetiapine Fumarate 25 Mg Tablet PO 01/31/26 21:59 25 mg QHS AL Administration Sennosides 17.2 mg 01/31/25 12:00 02/10/25 20:23 Sennosides 8.6 Mg Tablet PO 01/31/26 11:59 17.2 mg DAILY@12 PRN Administration If no BM in 2 days Assessment/Plan Assessment/Plan (1) Nontraumatic brain injury: Plan: PT to improve pt's strength, endurance, bed mobility, transfers (sit-stand), standing balance, gait quality on level surfaces and stairs, coordination and functional ADL skills. Will also work to improve pt's safety awareness during transfers and ambulation. OT for basic ADL re-training (bathing, dressing, toileting, continence, grooming, feeding, transferring), to increase activity tolerance and functional mobility and to evaluate for adaptive and assistive devices. Will work to improve pt's endurance and educate pt on fall prevention and energy conservationtechniques-pacing strategies and proper breathing techniques during functional tasks. CONSTRUCTION OR LEAK GANG LABORER to evaluate and treat patient?s cognition, language and communication skills, assess swallow function. Patient education Pressure ulcer prophylaxis; encourage mobilization, frequent postural changes, pressure-relief techniques DVT prophylaxis Encourage deep breathing exercise incentive spirometry. Monitor bladder. Toileting schedule. Continue current bladder management, with scans as needed and CIC if needed. Start bowel care program every day to obtain continence, prevent ileus. Maintain fall precautions Gait and balance retraining Provision of the necessary gait aids and functional adaptive equipment to enhance the patient's a functional faith Encourage deep breathing exercises and incentive spirometry RD evaluation Ensure adequate nutrition and hydration Discharge planning. 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 Traore is a 79 year old male who presents with multifactorial functional decline in the setting of what was initially thought to be acute stroke, but on further evaluation is non-traumatic brain dysfunction, broad differential including seizure, autoimmune encephalitis, brain tumor such as glioma. -Continues to progress. Biggest barriers cognition. Otherwise min assist to supervision level. Hemodynamically stable. No focal neurologic changes. Reviewed at team meeting tomorrow, would prefer to speak with family, niece and brother who will be present from [facility] to assist with management of comorbid medical conditions Pain control: Limit sedating medications. Bowel and bladder: Incontinent at times Skin: As ordered, turn and position for offloading. Sleep: Optimize sleep / wake to reduce seizure risk DVT prophylaxis: As ordered, anticoagulated with Eliquis Functional status: Impaired, see PT/OT/CONSTRUCTION OR LEAK GANG LABORER. Discharge planning: [facility] facility. I spent 25 minutes for services, including [id number] encounter with the patient, discussion of the case, plan of care, and exam; and [id number] activities, such as reviewing pertinent search engine optimization consultant documentation, recent therapynotes, laboratory and radiology studies, and discussion of case with care team including physician, nursing, wrapper caser, and therapists. More than 50 % of time was spent on patient/family counseling or coordination ofcare. Documented By: Omkar Louie MD 02/12/25 144 Signed By: <Electronically signed by Omkar Louie MD> 02/12/25 1443 [facility] Work Phone: [phone] 122-719903-18-2025 [place] [address] Physiatry(Rehab) Progress Note Signed Patient: Bailee Traore MR#: [id number] : 1945 Acct:[id number] Age/Sex: 79 / M Adm Date: 5 Loc: Room: 6K5475-8 Type: ADM IN Attending Dr: Omkar Louie MD Copies to: ~ Date of Service: 02/12/2025 Subjective Subjective Narrative: Mr. Traore is a 79 year old male who presents with multifactorial functional decline in the setting of what was initially thought to be acute stroke, but on further evaluation is non-traumatic braindysfunction, broad differential including seizure, autoimmune encephalitis, brain tumor such as glioma. Per chart review, the patient was found down at home. Upon presentation to the hospital, NIH score was 10. 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 Did not receive thrombolytic therapy due to unknown timeline. Was also noted to be in afib with RVR on presentation and was given 5 mg IV Lopressor with conversion back to NSR. He also was noted to have a focal seizure. Has since been started on Keppra and PRN Ativan. Ongoing workup per neurology as noted. Possibly pending lumbar puncture which would require Eliquisto be on hold. Defer to them for timing of that. Interval history: As reviewed at team meeting. Patient seen and examined at bedside. He is surrounded by his friend Steffen, his niece, and his brother. All questions answered and family brought up-to-date. Review of Systems Review of Systems All other systems reviewed & are negative unless noted below or in HPI Exam Physical Exam Vital Signs: Temp Pulse Resp BP Pulse Ox O2 Del Method 98.1 F 66 18 118/68 97 Room Air 02/12/25 14:19 02/12/25 14:19 02/12/25 14:19 02/12/25 14:19 02/12/25 14:19 02/12/25 14:19 Narrative: Pleasant No acute distress Alert and oriented x 3 but delayed processing and mild confusion noted Generalized weakness Ataxic Objective Labs 02/07/25 04:58 02/07/25 04:58 Medications and Allergies Allergies and Active Meds: Allergies No Known Allergies Allergy (Verified 01/26/25 07:34) Active Medications Generic Name Dose Route Start Last Admin Trade Name Freq PRN Reason Stop Dose Admin Acetaminophen 500 mg 01/30/25 21:03 02/07/25 20:25 Acetaminophen 500 Mg Tablet PO 01/30/26 21:02 500 mg Q4H PRN Administration Pain Al Hydrox/Mg Hydrox/Simethicone 30 ml 01/30/25 21:03 Mag Hydrox/Al Hydrox/Simeth 30 Ml Udc PO 01/30/26 21:02 Q4H PRN Indigestion Apixaban 5 mg 01/31/25 09:00 02/12/25 08:06 Apixaban 5 Mg Tablet PO 01/31/26 08:59 5 mg BID AL Administration Aspirin 81 mg 02/04/25 09:00 02/12/25 08:06 Aspirin 81 Mg Tablet. PO 02/04/26 08:59 81 mg DAILY AL Administration Atorvastatin Calcium 80 mg 01/31/25 21:00 02/11/25 21:46 Atorvastatin 80 Mg Tablet PO 01/31/26 20:59 80 mg QPM AL Administration Bisacodyl 10 mg 01/30/25 21:03 Bisacodyl 10 Mg Supp.Rect MD 01/30/26 21:02 DAILY PRN Constipation Docusate Sodium 100 mg 01/30/25 21:03 02/10/25 20:22 Docusate 100 Mg Capsule PO 01/30/26 21:02 100 mg BID PRN Administration Constipation Docusate Sodium 283 mg 01/30/25 21:03 Docusate Enema 283 Mg/5 Ml Enema MD 01/30/26 21:02 DAILY PRN Constipation Lactulose 30 gm 01/30/25 21:03 Lactulose 20 Gm/30 Ml Udc PO 01/30/26 21:02 DAILY PRN Constipation Levetiracetam 1,000 mg 01/31/25 09:00 02/12/25 08:06 Levetiracetam 500 Mg Tablet PO 01/31/26 08:59 1,000 mg BID AL Administration Levothyroxine Sodium 50 mcg 01/31/25 06:30 02/12/25 06:09 Levothyroxine 50 Mcg Tablet PO 01/31/26 06:29 50 mcg DAILY.0630 AL Administration Lisinopril 20 mg 01/31/25 09:00 02/12/25 08:06 Lisinopril 20 Mg Tablet PO 01/31/26 08:59 20 mg DAILY AL Administration Metoprolol Succinate 50 mg 01/31/25 09:00 02/12/25 08:07 Metoprolol Succinate 50 Mg Tab.Er.24h PO 01/31/26 08:59 50 mg DAILY AL Administration Pantoprazole Sodium 40 mg 01/31/25 18:00 02/11/25 17:22 Pantoprazole 40 Mg Tablet.Dr PO 01/31/26 17:59 40 mg DAILY.PC.SUPPER AL Administration Quetiapine Fumarate 25 mg 01/31/25 22:00 02/11/25 21:46 Quetiapine Fumarate 25 Mg Tablet PO 01/31/26 21:59 25 mg QHS AL Administration Sennosides 17.2 mg 01/31/25 12:00 02/10/25 20:23 Sennosides 8.6 Mg Tablet PO 01/31/26 11:59 17.2 mg DAILY@12 PRN Administration If no BM in 2 days Assessment/Plan Assessment/Plan (1) Nontraumatic brain injury: Plan: PT to improve pt's strength, endurance, bed mobility, transfers (sit-stand), standing balance, gaitquality on level surfaces and stairs, coordination and functional ADL skills. Will also work to improve pt's safety awareness during transfers and ambulation. OT for basic ADL re-training (bathing, dressing, toileting, continence, grooming, feeding, transferring), to increase activity tolerance and functional mobility and to evaluate for adaptive and assistive devices. Will work to improve pt's endurance and educate pt on fall prevention and energy conser vationtechniques-pacing strategies and proper breathing techniques during functional tasks. CONSTRUCTION OR LEAK GANG LABORER to evaluate and treat patient?s cognition, language and communication skills, assess swallow function. Patient education Pressure ulcer prophylaxis; encourage mobilization, frequent postural changes, pressure-relief techniques DVT prophylaxis Encourage deep breathing exercise incentive spirometry. Monitor bladder. Toileting schedule. Continue current bladder management, with scans as needed and CIC if needed. Start bowel care program every day to obtain continence, prevent ileus. Maintain fall precautions Gait and balance retraining Provision of the necessary gait aids and functional adaptive equipment to enhance the patient's a functional faith Encourage deep breathing exercises and incentive spirometry RD evaluation Ensure adequate nutrition and hydration Discharge planning. 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 Traore is a 79 year old male who presents with multifactorial functional decline in the setting of what was initially thought to be acute stroke, but on further evaluation is non-traumatic braindysfunction, broad differential including seizure, autoimmune encephalitis, brain tumor such as glioma. -Ambulatory 235 feet and able to do some stairs. We talked about plan of care going forward which includes an MRI in a few weeks and follow-up with neurology. Depending on characteristics of the lesion being investigated, he may or may not require additional workup or testing, possibly referral to oncology. He hasnot had any seizure episodes since he was started on the Keppra. We talked about no driving. Patient and family acknowledge need for continued rehab in a snf facility setting. They prefer if he remains close to the hospital and his current doctors. They chose the [facility]. Hospitalist to assist with management of comorbid medical conditions Pain control: Limit sedating medications. Bowel and bladder: Incontinent at times Skin: As ordered, turn and position for offloading. Sleep: Optimize sleep / wake to reduce seizure risk DVT prophylaxis: As ordered, anticoagulated with Eliquis Functional status: Impaired, see PT/OT/CONSTRUCTION OR LEAK GANG LABORER. Discharge planning: [facility] facility. Referral sent to the [facility]. Patient was personally seen by me, Dr. Louie, on the day of encounter, reviewed the history and therelevant portions of the chart, including current orders, allied health and search engine optimization consultant notes, labs/imaging and performed bender elements of exam and I formulated the plan of care and facilitated the medical decision making. I completed a substantive portion of this encounter, the medical decision makingportion of this note in its entirety, including Allied health note review, nursing note review, search engine optimization consultant note review,discussion with nursing and case management, and more than 50% of my time was spent on counseling and coordination of care, time spent 45 minutes In addition to above, patient's case reviewed at weekly team conference, discussed progress and goals of care, barriers/problems to date and discharge planning. Documented By: Omkar Louie MD 02/12/25 1443 Signed By: 02/12/25 1445 [facility]03-18-2025 [place] [address] Physiatry(Rehab) Progress Note Signed Patient: Bailee Traore MR#: [id number] : 1945 Acct:[id number] Age/Sex: 79 / M Adm Date: 5 Loc: 5T Room: [id number] Type: ADM IN Attending Dr: Omkar Louie MD Copies to: ~ Date of Service: 02/11/2025 Subjective Subjective Narrative: Mr. Traore is a 79 year old male who presents with multifactorial functional decline in the setting of what was initially thought to be acute stroke, but on further evaluation is non-traumatic braindysfunction, broad differential including seizure, autoimmune encephalitis, brain tumor such as glioma. Per chart review, the patient was found down at home. Upon presentation to the hospital, NIH score was 10. 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 Did not receive thrombolytic therapy due to unknown timeline. Was also noted to be in afib with RVR on presentation and was given 5 mg IV Lopressor with conversion back to NSR. He also was noted to have a focal seizure. Has since been started on Keppra and PRN Ativan. Ongoing workup per neurology as noted. Possibly pending lumbar puncture which would require Eliquisto be on hold. Defer to them for timing of that. Interval history: Seen and examined at bedside. He denies new complaints. Remains pleasantly confused. min assist to supervision level for therapy, except for cognition Review of Systems Review of Systems All other systems reviewed & are negative unless noted below or in HPI Exam Physical Exam Vital Signs: Temp Pulse Resp BP Pulse Ox O2 Del Method 98.1 F 66 18 118/68 97 Room Air 02/12/25 14:19 02/12/25 14:19 02/12/25 14:19 02/12/25 14:19 02/12/25 14:19 02/12/25 14:19 Narrative: Pleasant No acute distress Alert and oriented x 3 but delayed processing and mild confusion noted Generalized weakness Ataxic Objective Labs 02/07/25 04:58 02/07/25 04:58 Medications and Allergies Allergies and Active Meds: Allergies No Known Allergies Allergy (Verified 01/26/25 07:34) Active Medications Generic Name Dose Route Start Last Admin Trade Name Freq PRN Reason Stop Dose Admin Acetaminophen 500 mg 01/30/25 21:03 02/07/25 20:25 Acetaminophen 500 Mg Tablet PO 01/30/26 21:02 500 mg Q4H PRN Administration Pain Al Hydrox/Mg Hydrox/Simethicone 30 ml 01/30/25 21:03 Mag Hydrox/Al Hydrox/Simeth 30 Ml Udc PO 01/30/26 21:02 Q4H PRN Indigestion Apixaban 5 mg 01/31/25 09:00 02/12/25 08:06 Apixaban 5 Mg Tablet PO 01/31/26 08:59 5 mg BID AL Administration Aspirin 81 mg 02/04/25 09:00 02/12/25 08:06 Aspirin 81 Mg Tablet. PO 02/04/26 08:59 81 mg DAILY AL Administration Atorvastatin Calcium 80 mg 01/31/25 21:00 02/11/25 21:46 Atorvastatin 80 Mg Tablet PO 01/31/26 20:59 80 mg QPM AL Administration Bisacodyl 10 mg 01/30/25 21:03 Bisacodyl 10 Mg Supp.Rect MD 01/30/26 21:02 DAILY PRN Constipation Docusate Sodium 100 mg 01/30/25 21:03 02/10/25 20:22 Docusate 100 Mg Capsule PO 01/30/26 21:02 100 mg BID PRN Administration Constipation Docusate Sodium 283 mg 01/30/25 21:03 Docusate Enema 283 Mg/5 Ml Enema MD 01/30/26 21:02 DAILY PRN Constipation Lactulose 30 gm 01/30/25 21:03 Lactulose 20 Gm/30 Ml Udc PO 01/30/26 21:02 DAILY PRN Constipation Levetiracetam 1,000 mg 01/31/25 09:00 02/12/25 08:06 Levetiracetam 500 Mg Tablet PO 01/31/26 08:59 1,000 mg BID AL Administration Levothyroxine Sodium 50 mcg 01/31/25 06:30 02/12/25 06:09 Levothyroxine 50 Mcg Tablet PO 01/31/26 06:29 50 mcg DAILY.0630 AL Administration Lisinopril 20 mg 01/31/25 09:00 02/12/25 08:06 Lisinopril 20 Mg Tablet PO 01/31/26 08:59 20 mg DAILY AL Administration Metoprolol Succinate 50 mg 01/31/25 09:00 02/12/25 08:07 Metoprolol Succinate 50 Mg Tab.Er.24h PO 01/31/26 08:59 50 mg DAILY AL Administration Pantoprazole Sodium 40 mg 01/31/25 18:00 02/11/25 17:22 Pantoprazole 40 Mg Tablet. PO 01/31/26 17:59 40 mg DAILY.PC.SUPPER AL Administration Quetiapine Fumarate 25 mg 01/31/25 22:00 02/11/25 21:46 Quetiapine Fumarate 25 Mg Tablet PO 01/31/26 21:59 25 mg QHS AL Administration Sennosides 17.2 mg 01/31/25 12:00 02/10/25 20:23 Sennosides 8.6 Mg Tablet PO 01/31/26 11:59 17.2 mg DAILY@12 PRN Administration If no BM in 2 days Assessment/Plan Assessment/Plan (1) Nontraumatic brain injury: Plan: PT to improve pt's strength, endurance, bed mobility, transfers (sit-stand), standing balance, gaitquality on level surfaces and stairs, coordination and functional ADL skills. Will also work to improve pt's safety awareness during transfers and ambulation. OT for basic ADL re-training (bathing, dressing, toileting, continence, grooming, feeding, transferring), to increase activity tolerance and functional mobility and to evaluate for adaptive and assistive devices. Will work to improve pt's endurance and educate pt on fall prevention and energy conser vationtechniques-pacing strategies and proper breathing techniques during functional tasks. CONSTRUCTION OR LEAK GANG LABORER to evaluate and treat patient?s cognition, language and communication skills, assess swallow function. Patient education Pressure ulcer prophylaxis; encourage mobilization, frequent postural changes, pressure-relief techniques DVT prophylaxis Encourage deep breathing exercise incentive spirometry. Monitor bladder. Toileting schedule. Continue current bladder management, with scans as needed and CIC if needed. Start bowel care program every day to obtain continence, prevent ileus. Maintain fall precautions Gait and balance retraining Provision of the necessary gait aids and functional adaptive equipment to enhance the patient's a functional faith Encourage deep breathing exercises and incentive spirometry RD evaluation Ensure adequate nutrition and hydration Discharge planning. 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 Traore is a 79 year old male who presents with multifactorial functional decline in the setting of what was initially thought to be acute stroke, but on further evaluation is non-traumatic braindysfunction, broad differential including seizure, autoimmune encephalitis, brain tumor such as glioma. -Continues to progress. Biggest barriers cognition. Otherwise min assist to supervision level. Hemodynamically stable. No focal neurologic changes. Reviewed at team meeting tomorrow, would prefer to speak with family, niece and brother who will be present from [facility] to assist with management of comorbid medical conditions Pain control: Limit sedating medications. Bowel and bladder: Incontinent at times Skin: As ordered, turn and position for offloading. Sleep: Optimize sleep / wake to reduce seizure risk DVT prophylaxis: As ordered, anticoagulated with Eliquis Functional status: Impaired, see PT/OT/CONSTRUCTION OR LEAK GANG LABORER. Discharge planning: [facility] facility. I spent 25 minutes for services, including lmov-[id number] encounter with the patient, discussion of the case, plan of care, and exam; and tgdwobo-if-lzte activities, such as reviewing pertinent search engine optimization consultant documentation, recent therapynotes, laboratory and radiology studies, and discussion of case with care team including physician, nursing, wrapper caser, and therapists. More than 50 % of time was spent on patient/family counseling or coordination ofcare. Documented By: Omkar Louie MD 02/12/251441 Signed By: 02/12/25 1443 [facility]03-15-2025 Progress note Author Omkar Louie [facility] Note Date/Time February 09, 2025 8:0 2am [facility] [address] [place] [address] Physiatry(Rehab) Progress Note Signed Patient: Bailee Traore MR#: [id number] : 1945 Acct:[id number] Age/Sex: 79 / M Adm Date: 5 Loc: Room: [address] [place] [address] Type: ADM IN Attending Dr: Omkar Louie MD Copies to: ~ Date of Service: 02/08/2025 Subjective Subjective Narrative: Mr. Traore is a 79 year old male who presents with multifactorial functional decline in the setting of what was initially thought to be acute stroke, but on further evaluation is non-traumatic brain dysfunction, broad differential including seizure, autoimmune encephalitis, brain tumor such as glioma. Per chart review, the patient was found down at home. Upon presentation to the hospital, NIH score was 10. 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 Did not receive thrombolytic therapy due to unknown timeline. Was also noted to be in afib with RVR on presentation and was given 5 mg IV Lopressor with conversion back to NSR. He also was noted to have a focal seizure. Has since been started on Keppra and PRN Ativan. Ongoing workup per neurology as noted. Possibly pending lumbar puncture which would require Eliquis to be on hold. Defer to them for timing of that. Interval history: Spoke to patient with one of his secondary contacts, Steffen, at the bedside. His primary contact was aggressive with staff and some one of our nurses, I do not think he will be returning and if he does, security will be called to remove him. Discharged to [facility] facility. Patient has limited insight but is agreeable. Review of Systems Review of Systems All other systems reviewed & are negative unless noted below or in HPI Exam Physical Exam Vital Signs: Temp Pulse Resp BP Pulse Ox O2 Del Method 97.9 F 54 L 18 151/78 H 96 Room Air 02/08/25 07:25 02/08/25 07:25 02/08/25 07:25 02/08/25 07:25 02/08/25 07:25 02/08/25 07:25 Narrative: Pleasant No acute distress Alert and oriented x 3 but delayed processing and mild confusion noted Generalized weakness Ataxic Objective Labs 02/07/25 04:58 02/07/25 04:58 Medications and Allergies Allergies and Active Meds: Allergies No Known Allergies Allergy (Verified 01/26/25 07:34) Active Medications Generic Name Dose Route Start Last Admin Trade Name Freq PRN Reason Stop Dose Admin Acetaminophen 500 mg 01/30/25 21:03 02/07/25 20:25 Acetaminophen 500 Mg Tablet PO 01/30/26 21:02 500 mg Q4H PRN Administration Pain Al Hydrox/Mg Hydrox/Simethicone 30 ml 01/30/25 21:03 Mag Hydrox/Al Hydrox/Simeth 30 Ml Udc PO 01/30/26 21:02 Q4H PRN Indigestion Apixaban 5 mg 01/31/25 09:00 02/08/25 08:32 Apixaban 5 Mg Tablet PO 01/31/26 08:59 5 mg BID AL Administration Aspirin 81 mg 02/04/25 09:00 02/08/25 08:32 Aspirin 81 Mg Tablet. PO 02/04/26 08:59 81 mg DAILY AL Administration Atorvastatin Calcium 80 mg 01/31/25 21:00 02/07/25 20:25 Atorvastatin 80 Mg Tablet PO 01/31/26 20:59 80 mg QPM AL Administration Bisacodyl 10 mg 01/30/25 21:03 Bisacodyl 10 Mg Supp.Rect MD 01/30/26 21:02 DAILY PRN Constipation Docusate Sodium 100 mg 01/30/25 21:03 02/06/25 21:02 Docusate 100 Mg Capsule PO 01/30/26 21:02 100 mg BID PRN Administration Constipation Docusate Sodium 283 mg 01/30/25 21:03 Docusate Enema 283 Mg/5 Ml Enema MD 01/30/26 21:02 DAILY PRN Constipation Lactulose 30 gm 01/30/25 21:03 Lactulose 20 Gm/30 Ml Udc PO 01/30/26 21:02 DAILY PRN Constipation Levetiracetam 1,000 mg 01/31/25 09:00 02/08/25 08:32 Levetiracetam 500 Mg Tablet PO 01/31/26 08:59 1,000 mg BID LA Administration Levothyroxine Sodium 50 mcg 01/31/25 06:30 02/08/25 06:18 Levothyroxine 50 Mcg Tablet PO 01/31/26 06:29 50 mcg DAILY.0630 AL Administration Lisinopril 20 mg 01/31/25 09:00 02/08/25 08:32 Lisinopril 20 Mg Tablet PO 01/31/26 08:59 20 mg DAILY AL Administration Metoprolol Succinate 50 mg 01/31/25 09:00 02/08/25 08:32 Metoprolol Succinate 50 Mg Tab.Er.24h PO 01/31/26 08:59 50 mg DAILY AL Administration Pantoprazole Sodium 40 mg 01/31/25 18:00 02/07/25 17:54 Pantoprazole 40 Mg Tablet.Dr PO 01/31/26 17:59 40 mg DAILY.PC.SUPPER AL Administration Quetiapine Fumarate 25 mg 01/31/25 22:00 02/07/25 20:25 Quetiapine Fumarate 25 Mg Tablet PO 01/31/26 21:59 25 mg QHS AL Administration Sennosides 17.2 mg 01/31/25 12:00 Sennosides 8.6 Mg Tablet PO 01/31/26 11:59 DAILY@12 PRN If no BM in 2 days Sodium Chloride 0 ml 01/31/25 09:00 02/08/25 08:33 Sodium Chloride 0.9 % 10 Ml Syringe IV-PUSH 01/31/26 08:59 Not Given BID [facility] Assessment/Plan Assessment/Plan (1) Nontraumatic brain injury: Plan: PT to improve pt's strength, endurance, bed mobility, transfers (sit-stand), standing balance, gait quality on level surfaces and stairs, coordination and functional ADL skills. Will also work to improve pt's safety awareness during transfers and ambulation. OT for basic ADL re-training (bathing, dressing, toileting, continence, grooming, feeding, transferring), to increase activity tolerance and functional mobility and to evaluate for adaptive and assistive devices. Will work to improve pt's endurance and educate pt on fall prevention and energy conservationtechniques-pacing strategies and proper breathing techniques during functional tasks. CONSTRUCTION OR LEAK GANG LABORER to evaluate and treat patient?s cognition, language and communication skills, assess swallow function. Patient education Pressure ulcer prophylaxis; encourage mobilization, frequent postural changes, pressure-relief techniques DVT prophylaxis Encourage deep breathing exercise incentive spirometry. Monitor bladder. Toileting schedule. Continue current bladder management, with scans as needed and CIC if needed. Start bowel care program every day to obtain continence, prevent ileus. Maintain fall precautions Gait and balance retraining Provision of the necessary gait aids and functional adaptive equipment to enhance the patient's a functional faith Encourage deep breathing exercises and incentive spirometry RD evaluation Ensure adequate nutrition and hydration Discharge planning. 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 Traore is a 79 year old male who presents with multifactorial functional decline in the setting of what was initially thought to be acute stroke, but on further evaluation is non-traumatic brain dysfunction, broad differential including seizure, autoimmune encephalitis, brain tumor such as glioma. -Explained plan of care to patient and contact, Ray, at the bedside. Agreeable to snf facility placement. Case management will make referrals. Otherwise stable and improving but with limited insight into current condition. Hospitalist to assist with management of comorbid medical conditions Pain control: Limit sedating medications. Bowel and bladder: Incontinent at times Skin: As ordered, turn and position for offloading. Sleep: Optimize sleep / wake to reduce seizure risk DVT prophylaxis: As ordered, anticoagulated with Eliquis Functional status: Impaired, see PT/OT/CONSTRUCTION OR LEAK GANG LABORER. Discharge planning: [facility] facility. I spent 25 minutes for services, including [id number] encounter with the patient, discussion of the case, plan of care, and exam; and wimejyx-cw-jist activities, such as reviewing pertinent search engine optimization consultant documentation, recent therapynotes, laboratory and radiology studies, and discussion of case with care team including physician, nursing, wrapper caser, and therapists. More than 50 % of time was spent on patient/family counseling or coordination ofcare. Documented By: Omkar Louie MD 02/08/25 0848 Signed By: <Electronically signed by Omkar Louie MD> 02/09/25 0802 [facility] Work Phone: [phone] 342-162503-15-2025 [place] [address] Physiatry(Rehab) Progress Note Signed Patient: Bailee Traore MR#: [id number] : 1945 Acct:[id number] Age/Sex: 79 / M Adm Date: 5 Loc: Room: [address] [place] [address] Type: ADM IN Attending Dr: Omkar Louie MD Copies to: ~ Date of Service: 02/08/2025 Subjective Subjective Narrative: Mr. Traore is a 79 year old male who presents with multifactorial functional decline in the setting of what was initially thought to be acute stroke, but on further evaluation is non-traumatic braindysfunction, broad differential including seizure, autoimmune encephalitis, brain tumor such as glioma. Per chart review, the patient was found down at home. Upon presentation to the hospital, NIH score was 10. 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 Did not receive thrombolytic therapy due to unknown timeline. Was also noted to be in afib with RVR on presentation and was given 5 mg IV Lopressor with conversion back to NSR. He also was noted to have a focal seizure. Has since been started on Keppra and PRN Ativan. Ongoing workup per neurology as noted. Possibly pending lumbar puncture which would require Eliquisto be on hold. Defer to them for timing of that. Interval history: Spoke to patient with one of his secondary contacts, Steffen, at the bedside. His primary contact was aggressive with staff and some one of our nurses, I do not think he will be returning and if he does,security will be called to remove him. Discharged to snf facility. Patient has limited insight but is agreeable. Review of Systems Review of Systems All other systems reviewed & are negative unless noted below or in HPI Exam Physical Exam Vital Signs: Temp Pulse Resp BP Pulse Ox O2 Del Method 97.9 F 54 L 18 151/78 H 96 Room Air 02/08/25 07:25 02/08/25 07:25 02/08/25 07:25 02/08/25 07:25 02/08/25 07:25 02/08/25 07:25 Narrative: Pleasant No acute distress Alert and oriented x 3 but delayed processing and mild confusion noted Generalized weakness Ataxic Objective Labs 02/07/25 04:58 02/07/25 04:58 Medications and Allergies Allergies and Active Meds: Allergies No Known Allergies Allergy (Verified 01/26/25 07:34) Active Medications Generic Name Dose Route Start Last Admin Trade Name Freq PRN Reason Stop Dose Admin Acetaminophen 500 mg 01/30/25 21:03 02/07/25 20:25 Acetaminophen 500 Mg Tablet PO 01/30/26 21:02 500 mg Q4H PRN Administration Pain Al Hydrox/Mg Hydrox/Simethicone 30 ml 01/30/25 21:03 Mag Hydrox/Al Hydrox/Simeth 30 Ml Udc PO 01/30/26 21:02 Q4H PRN Indigestion Apixaban 5 mg 01/31/25 09:00 02/08/25 08:32 Apixaban 5 Mg Tablet PO 01/31/26 08:59 5 mg BID AL Administration Aspirin 81 mg 02/04/25 09:00 02/08/25 08:32 Aspirin 81 Mg Tablet. PO 02/04/26 08:59 81 mg DAILY AL Administration Atorvastatin Calcium 80 mg 01/31/25 21:00 02/07/25 20:25 Atorvastatin 80 Mg Tablet PO 01/31/26 20:59 80 mg QPM AL Administration Bisacodyl 10 mg 01/30/25 21:03 Bisacodyl 10 Mg Supp.Rect MD 01/30/26 21:02 DAILY PRN Constipation Docusate Sodium 100 mg 01/30/25 21:03 02/06/25 21:02 Docusate 100 Mg Capsule PO 01/30/26 21:02 100 mg BID PRN Administration Constipation Docusate Sodium 283 mg 01/30/25 21:03 Docusate Enema 283 Mg/5 Ml Enema MD 01/30/26 21:02 DAILY PRN Constipation Lactulose 30 gm 01/30/25 21:03 Lactulose 20 Gm/30 Ml Udc PO 01/30/26 21:02 DAILY PRN Constipation Levetiracetam 1,000 mg 01/31/25 09:00 02/08/25 08:32 Levetiracetam 500 Mg Tablet PO 01/31/26 08:59 1,000 mg BID AL Administration Levothyroxine Sodium 50 mcg 01/31/25 06:30 02/08/25 06:18 Levothyroxine 50 Mcg Tablet PO 01/31/26 06:29 50 mcg DAILY.0630 AL Administration Lisinopril 20 mg 01/31/25 09:00 02/08/25 08:32 Lisinopril 20 Mg Tablet PO 01/31/26 08:59 20 mg DAILY AL Administration Metoprolol Succinate 50 mg 01/31/25 09:00 02/08/25 08:32 Metoprolol Succinate 50 Mg Tab.Er.24h PO 01/31/26 08:59 50 mg DAILY AL Administration Pantoprazole Sodium 40 mg 01/31/25 18:00 02/07/25 17:54 Pantoprazole 40 Mg Tablet.Dr PO 01/31/26 17:59 40 mg DAILY.PC.SUPPER AL Administration Quetiapine Fumarate 25 mg 01/31/25 22:00 02/07/25 20:25 Quetiapine Fumarate 25 Mg Tablet PO 01/31/26 21:59 25 mg QHS AL Administration Sennosides 17.2 mg 01/31/25 12:00 Sennosides 8.6 Mg Tablet PO 01/31/26 11:59 DAILY@12 PRN If no BM in 2 days Sodium Chloride 0 ml 01/31/25 09:00 02/08/25 08:33 Sodium Chloride 0.9 % 10 Ml Syringe IV-PUSH 01/31/26 08:59 Not Given BID [facility] Assessment/Plan Assessment/Plan (1) Nontraumatic brain injury: Plan: PT to improve pt's strength, endurance, bed mobility, transfers (sit-stand), standing balance, gaitquality on level surfaces and stairs, coordination and functional ADL skills. Will also work to improve pt's safety awareness during transfers and ambulation. OT for basic ADL re-training (bathing, dressing, toileting, continence, grooming, feeding, transferring), to increase activity tolerance and functional mobility and to evaluate for adaptive and assistive devices. Will work to improve pt's endurance and educate pt on fall prevention and energy conser vationtechniques-pacing strategies and proper breathing techniques during functional tasks. CONSTRUCTION OR LEAK GANG LABORER to evaluate and treat patient?s cognition, language and communication skills, assess swallow function. Patient education Pressure ulcer prophylaxis; encourage mobilization, frequent postural changes, pressure-relief techniques DVT prophylaxis Encourage deep breathing exercise incentive spirometry. Monitor bladder. Toileting schedule. Continue current bladder management, with scans as needed and CIC if needed. Start bowel care program every day to obtain continence, prevent ileus. Maintain fall precautions Gait and balance retraining Provision of the necessary gait aids and functional adaptive equipment to enhance the patient's a functional faith Encourage deep breathing exercises and incentive spirometry RD evaluation Ensure adequate nutrition and hydration Discharge planning. 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 Traore is a 79 year old male who presents with multifactorial functional decline in the setting of what was initially thought to be acute stroke, but on further evaluation is non-traumatic braindysfunction, broad differential including seizure, autoimmune encephalitis, brain tumor such as glioma. -Explained plan of care to patient and contact, Ray, at the bedside. Agreeable to snf facility placement. Case management will make referrals. Otherwise stable and improving but with limited insight into current condition. Hospitalist to assist with management of comorbid medical conditions Pain control: Limit sedating medications. Bowel and bladder: Incontinent at times Skin: As ordered, turn and position for offloading. Sleep: Optimize sleep / wake to reduce seizure risk DVT prophylaxis: As ordered, anticoagulated with Eliquis Functional status: Impaired, see PT/OT/CONSTRUCTION OR LEAK GANG LABORER. Discharge planning: [facility] facility. I spent 25 minutes for services, including ixzs-lq-[id number] encounter with the patient, discussion of the case, plan of care, and exam; and hufmkoy-ib-[id number] activities, such as reviewing pertinent search engine optimization consultant documentation, recent therapynotes, laboratory and radiology studies, and discussion of case with care team including physician, nursing, wrapper caser, and therapists. More than 50 % of time was spent on patient/family counseling or coordination ofcare. Documented By: Omkar Louie MD 02/08/25 0848 Signed By: 02/09/25 0802 [facility]03-13-2025 Progress note Author Jillian Mendez [facility] Note Date/Time February 07, 2025 3:5 9pm [facility] [address] [place] [address] Hospitalist Progress Note Signed Patient: Bailee Traore MR#: [id number] : 1945 Acct:[id number] Age/Sex: 79 / M Adm Date: 5 Loc: Room: [address] [place] [address] Type: ADM IN Attending Dr: Omkar Louie MD Copies to: ~ Date of Service: 02/07/2025 Subjective Subjective Narrative: Patient is seen and examined on follow-up. He continues to work with therapy. Offers no complaints, redirected to questions. Nursing with no concerns. Vitals reviewed afebrile no hypoxia, blood pressures improving control. Labs reviewed from today no leukocytosis, hemoglobin stable at 12.7, normal electrolytes and renal function. Exam Physical Exam Vital Signs: Temp Pulse Resp BP Pulse Ox O2 Del Method 97.6 F 62 14 123/75 97 Room Air 02/07/25 11:57 02/07/25 11:57 02/07/25 11:57 02/07/25 11:57 02/07/25 11:57 02/07/25 11:57 Narrative: [id number]-[id number], elderly, cooperative, comfortable. Distractible CARDIAC?normal rate, regular rhythm, normal S1 & S2. PULM?CTA bilaterally, RA, no accessory muscle use or cough noted ABD ? Soft. Bowel sounds are normal. No distention No tenderness EXTREM?no edema BLE calves nontender SKIN?fair skin turgor, lower extremity lesion and visualized due to dressing Objective Lab Results 02/07/25 04:58 02/07/25 04:58 Microbiology Results Microbiology 02/03/25 12:55 Cerebral Spinal Fluid Aerobic Culture - Final No Growth 2 Days 02/03/25 12:55 Cerebral Spinal Fluid Anaerobic Culture - Final No Anaerobes Isolated 3 Days 02/03/25 12:55 Cerebral Spinal Fluid Gram Stain - Final Meds Allergies and Active Meds Allergies No Known Allergies Allergy (Verified 01/26/25 07:34) Active Meds: Active Medications Generic Name Dose Route Start Last Admin Trade Name Freq PRN Reason Stop Dose Admin Acetaminophen 500 mg 01/30/25 21:03 02/05/25 21:22 Acetaminophen 500 Mg Tablet PO 01/30/26 21:02 500 mg Q4H PRN Administration Pain Al Hydrox/Mg Hydrox/Simethicone 30 ml 01/30/25 21:03 Mag Hydrox/Al Hydrox/Simeth 30 Ml Udc PO 01/30/26 21:02 Q4H PRN Indigestion Apixaban 5 mg 01/31/25 09:00 02/07/25 08:41 Apixaban 5 Mg Tablet PO 01/31/26 08:59 5 mg BID AL Administration Aspirin 81 mg 02/04/25 09:00 02/07/25 08:41 Aspirin 81 Mg Tablet. PO 02/04/26 08:59 81 mg DAILY AL Administration Atorvastatin Calcium 80 mg 01/31/25 21:00 02/06/25 21:02 Atorvastatin 80 Mg Tablet PO 01/31/26 20:59 80 mg QPM AL Administration Bisacodyl 10 mg 01/30/25 21:03 Bisacodyl 10 Mg Supp.Rect MD 01/30/26 21:02 DAILY PRN Constipation Docusate Sodium 100 mg 01/30/25 21:03 02/06/25 21:02 Docusate 100 Mg Capsule PO 01/30/26 21:02 100 mg BID PRN Administration Constipation Docusate Sodium 283 mg 01/30/25 21:03 Docusate Enema 283 Mg/5 Ml Enema MD 01/30/26 21:02 DAILY PRN Constipation Lactulose 30 gm 01/30/25 21:03 Lactulose 20 Gm/30 Ml Udc PO 01/30/26 21:02 DAILY PRN Constipation Levetiracetam 1,000 mg 01/31/25 09:00 02/07/25 08:41 Levetiracetam 500 Mg Tablet PO 01/31/26 08:59 1,000 mg BID AL Administration Levothyroxine Sodium 50 mcg 01/31/25 06:30 02/07/25 05:38 Levothyroxine 50 Mcg Tablet PO 01/31/26 06:29 50 mcg DAILY.0630 AL Administration Lisinopril 20 mg 01/31/25 09:00 02/07/25 08:41 Lisinopril 20 Mg Tablet PO 01/31/26 08:59 20 mg DAILY AL Administration Metoprolol Succinate 50 mg 01/31/25 09:00 02/07/25 08:41 Metoprolol Succinate 50 Mg Tab.Er.24h PO 01/31/26 08:59 50 mg DAILY AL Administration Pantoprazole Sodium 40 mg 01/31/25 18:00 02/06/25 18:09 Pantoprazole 40 Mg Tablet.Dr PO 01/31/26 17:59 40 mg DAILY.PC.SUPPER AL Administration Quetiapine Fumarate 25 mg 01/31/25 22:00 02/06/25 21:02 Quetiapine Fumarate 25 Mg Tablet PO 01/31/26 21:59 25 mg QHS AL Administration Sennosides 17.2 mg 01/31/25 12:00 Sennosides 8.6 Mg Tablet PO 01/31/26 11:59 DAILY@12 PRN If no BM in 2 days Sodium Chloride 0 ml 01/31/25 09:00 02/07/25 08:41 Sodium Chloride 0.9 % 10 Ml Syringe IV-PUSH 01/31/26 08:59 10 ml BID AL Administration A&P - Hospitalist Assessment/Plan (1) Seizure disorder, focal motor: (2) Hemiballismus: (3) Atrial fibrillation: (4) Hypothyroid: (5) Hyperlipidemia: Plan Seizure-Like Episode/Hemiballismus Impaired mobility and activities of daily living ?Plan of care for rehabilitation, PT/OT, DVT prophylaxis per PM&R team ?Levetiracetam. Post LP 02/03 further management per neurology. Eventual repeat MRI New onset paroxysmal atrial fibrillation ?Metoprolol, apixaban Chronic conditions: 1. Hypertension?metoprolol, lisinopril 2. Hypothyroidism?levothyroxine 3. Hyperlipidemia?atorvastatin 4. Right lower extremity skin lesion?following up with the [place] outpatient Documented By: Jillian Mendez APRN 01/26 02/19 1213 Signed By: <Electronically signed by JOAQUÍN Mendez> 02/07/25 0665 [facility] Work Phone: [phone]) 287-976503-13-2025 Progress note Author Omkar Louie [facility] Note Date/Time February 07, 2025 2:0 2pm [facility] [address] [place] [address] Physiatry(Rehab) Progress Note Signed Patient: Bailee Traore MR#: [id number] : 1945 Acct:[id number] Age/Sex: 79 / M Adm Date: 5 Loc: Room: [address] [place] [address] Type: ADM IN Attending Dr: Omkar Louie MD Copies to: ~ Date of Service: 02/07/2025 Subjective Subjective Narrative: Mr. Traore is a 79 year old male who presents with multifactorial functional decline in the setting of what was initially thought to be acute stroke, but on further evaluation is non-traumatic brain dysfunction, broad differential including seizure, autoimmune encephalitis, brain tumor such as glioma. Per chart review, the patient was found down at home. Upon presentation to the hospital, NIH score was 10. 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 Did not receive thrombolytic therapy due to unknown timeline. Was also noted to be in afib with RVR on presentation and was given 5 mg IV Lopressor with conversion back to NSR. He also was noted to have a focal seizure. Has since been started on Keppra and PRN Ativan. Ongoing workup per neurology as noted. Possibly pending lumbar puncture which would require Eliquis to be on hold. Defer to them for timing of that. Interval history: He is doing well today. He is a little bit distractible and somewhat tangential. His attention span is limited. He is ambulatory and working with speech therapy. He would like to return home at discharge although seems to understand it may be difficult for him to do that. Review of Systems Review of Systems All other systems reviewed & are negative unless noted below or in HPI Exam Physical Exam Vital Signs: Temp Pulse Resp BP Pulse Ox O2 Del Method 97.6 F 62 14 123/75 97 Room Air 02/07/25 11:57 02/07/25 11:57 02/07/25 11:57 02/07/25 11:57 02/07/25 11:57 02/07/25 11:57 Narrative: Pleasant No acute distress Alert and oriented x 3 but delayed processing and mild confusion noted Generalized weakness Ataxic Objective Labs 02/07/25 04:58 02/07/25 04:58 Labs: Laboratory Results - last 24 hr 02/03/25 02/07/25 12:55 04:58 Corrected WBC 6.7 Uncorrected WBC Count 6.7 RBC 4.33 Hgb 12.7 L Hct 37.3 L MCV 86.0 MCH 29.2 MCHC 33.9 RDW 13.9 Plt Count 164 MPV 9.0 Neut % (Auto) 41.9 Lymph % (Auto) 41.8 Meade % (Auto) 10.8 Eos % (Auto) 5.1 Baso % (Auto) 0.4 Nucleat RBC Rel Count 0.2 Neut # (Auto) 2.8 Lymph # (Auto) 2.8 Meade # (Auto) 0.7 Eos # (Auto) 0.3 Baso # (Auto) 0.0 PHA Creatinine Clear 79.49 Sodium 139 Potassium 4.3 Chloride 108 H Carbon Dioxide 27.2 Anion Gap 8.1 BUN 15 Creatinine 0.79 Est GFR (CKD-EPI) > 60.0 Glucose 86 Calcium 8.3 L CSF Cryptococcus Ag Negative Medications and Allergies Allergies and Active Meds: Allergies No Known Allergies Allergy (Verified 01/26/25 07:34) Active Medications Generic Name Dose Route Start Last Admin Trade Name Freq PRN Reason Stop Dose Admin Acetaminophen 500 mg 01/30/25 21:03 02/05/25 21:22 Acetaminophen 500 Mg Tablet PO 01/30/26 21:02 500 mg Q4H PRN Administration Pain Al Hydrox/Mg Hydrox/Simethicone 30 ml 01/30/25 21:03 Mag Hydrox/Al Hydrox/Simeth 30 Ml Udc PO 01/30/26 21:02 Q4H PRN Indigestion Apixaban 5 mg 01/31/25 09:00 02/07/25 08:41 Apixaban 5 Mg Tablet PO 01/31/26 08:59 5 mg BID AL Administration Aspirin 81 mg 02/04/25 09:00 02/07/25 08:41 Aspirin 81 Mg Tablet. PO 02/04/26 08:59 81 mg DAILY AL Administration Atorvastatin Calcium 80 mg 01/31/25 21:00 02/06/25 21:02 Atorvastatin 80 Mg Tablet PO 01/31/26 20:59 80 mg QPM AL Administration Bisacodyl 10 mg 01/30/25 21:03 Bisacodyl 10 Mg Supp.Rect MD 01/30/26 21:02 DAILY PRN Constipation Docusate Sodium 100 mg 01/30/25 21:03 02/06/25 21:02 Docusate 100 Mg Capsule PO 01/30/26 21:02 100 mg BID PRN Administration Constipation Docusate Sodium 283 mg 01/30/25 21:03 Docusate Enema 283 Mg/5 Ml Enema MD 01/30/26 21:02 DAILY PRN Constipation Lactulose 30 gm 01/30/25 21:03 Lactulose 20 Gm/30 Ml Udc PO 01/30/26 21:02 DAILY PRN Constipation Levetiracetam 1,000 mg 01/31/25 09:00 02/07/25 08:41 Levetiracetam 500 Mg Tablet PO 01/31/26 08:59 1,000 mg BID AL Administration Levothyroxine Sodium 50 mcg 01/31/25 06:30 02/07/25 05:38 Levothyroxine 50 Mcg Tablet PO 01/31/26 06:29 50 mcg DAILY.0630 AL Administration Lisinopril 20 mg 01/31/25 09:00 02/07/25 08:41 Lisinopril 20 Mg Tablet PO 01/31/26 08:59 20 mg DAILY AL Administration Metoprolol Succinate 50 mg 01/31/25 09:00 02/07/25 08:41 Metoprolol Succinate 50 Mg Tab.Er.24h PO 01/31/26 08:59 50 mg DAILY AL Administration Pantoprazole Sodium 40 mg 01/31/25 18:00 02/06/25 18:09 Pantoprazole 40 Mg Tablet.Dr GIL 01/31/26 17:59 40 mg DAILY.PC.SUPPER AL Administration Quetiapine Fumarate 25 mg 01/31/25 22:00 02/06/25 21:02 Quetiapine Fumarate 25 Mg Tablet PO 01/31/26 21:59 25 mg QHS AL Administration Sennosides 17.2 mg 01/31/25 12:00 Sennosides 8.6 Mg Tablet PO 01/31/26 11:59 DAILY@12 PRN If no BM in 2 days Sodium Chloride 0 ml 01/31/25 09:00 02/07/25 08:41 Sodium Chloride 0.9 % 10 Ml Syringe IV-PUSH 01/31/26 08:59 10 ml BID AL Administration Assessment/Plan Assessment/Plan (1) Nontraumatic brain injury: Plan: PT to improve pt's strength, endurance, bed mobility, transfers (sit-stand), standing balance, gait quality on level surfaces and stairs, coordination and functional ADL skills. Will also work to improve pt's safety awareness during transfers and ambulation. OT for basic ADL re-training (bathing, dressing, toileting, continence, grooming, feeding, transferring), to increase activity tolerance and functional mobility and to evaluate for adaptive and assistive devices. Will work to improve pt's endurance and educate pt on fall prevention and energy conservationtechniques-pacing strategies and proper breathing techniques during functional tasks. CONSTRUCTION OR LEAK GANG LABORER to evaluate and treat patient?s cognition, language and communication skills, assess swallow function. Patient education Pressure ulcer prophylaxis; encourage mobilization, frequent postural changes, pressure-relief techniques DVT prophylaxis Encourage deep breathing exercise incentive spirometry. Monitor bladder. Toileting schedule. Continue current bladder management, with scans as needed and CIC if needed. Start bowel care program every day to obtain continence, prevent ileus. Maintain fall precautions Gait and balance retraining Provision of the necessary gait aids and functional adaptive equipment to enhance the patient's a functional faith Encourage deep breathing exercises and incentive spirometry RD evaluation Ensure adequate nutrition and hydration Discharge planning. 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 Traore is a 79 year old male who presents with multifactorial functional decline in the setting of what was initially thought to be acute stroke, but on further evaluation is non-traumatic brain dysfunction, broad differential including seizure, autoimmune encephalitis, brain tumor such as glioma. -Continues to improve. I would agree with snf versus home with homehealth care soon. He does need a follow-up MRI with and without contrast but not for a few weeks, depending on the results of that he may or may not need a neurology follow-up for additional recommendations depending on appearance of the lesion. Hospitalist to assist with management of comorbid medical conditions Pain control: Limit sedating medications. Bowel and bladder: Pizano noted. Skin: As ordered, turn and position for offloading. Sleep: Optimize sleep / wake to reduce seizure risk DVT prophylaxis: As ordered, anticoagulated with Eliquis Functional status: Impaired, see PT/OT/CONSTRUCTION OR LEAK GANG LABORER. Discharge planning:Home in 1-2 weeks, lives home alone. I spent 25 minutes for services, including [id number] encounter with the patient, discussion of the case, plan of care, and exam; and flneehy-ee-[id number] activities, such as reviewing pertinent search engine optimization consultant documentation, recent therapynotes, laboratory and radiology studies, and discussion of case with care team including physician, nursing, wrapper caser, and therapists. More than 50 % of time was spent on patient/family counseling or coordination ofcare. Documented By: Omkar Louie MD 02/07/25 3596 Signed By: <Electronically signed by Omkar Louie MD> 02/07/25 140 [facility] Work Phone: [phone]) [phone] [place] [address] Hospitalist Progress Note Signed Patient: Bailee Traore MR#: [id number] : 1945 Acct:[id number] Age/Sex: 79 / M Adm Date: 5 Loc: Room: 4N0812-9 Type: ADM IN Attending Dr: Omkar Louie MD Copies to: ~ Date of Service: 02/07/2025 Subjective Subjective Narrative: Patient is seen and examined on follow-up. He continues to work with therapy. Offers no complaints,redirected to questions. Nursing with no concerns. Vitals reviewed afebrile no hypoxia, blood pressures improving control. Labs reviewed from today no leukocytosis, hemoglobin stable at 12.7, normal electrolytes and renal function. Exam Physical Exam Vital Signs: Temp Pulse Resp BP Pulse Ox O2 Del Method 97.6 F 62 14 123/75 97 Room Air 02/07/25 11:57 02/07/25 11:57 02/07/25 11:57 02/07/25 11:57 02/07/25 11:57 02/07/25 11:57 Narrative: PLUPQ-[id number]-sdhureeqm, elderly, cooperative, comfortable. Distractible CARDIAC?normal rate, regular rhythm, normal S1 & S2. PULM?CTA bilaterally, RA, no accessory muscle use or cough noted ABD ? Soft. Bowel sounds are normal. No distention No tenderness EXTREM?no edema BLE calves nontender SKIN?fair skin turgor, lower extremity lesion and visualized due to dressing Objective Lab Results 02/07/25 04:58 02/07/25 04:58 Microbiology Results Microbiology 02/03/25 12:55 Cerebral Spinal Fluid Aerobic Culture - Final No Growth 2 Days 02/03/25 12:55 Cerebral Spinal Fluid Anaerobic Culture - Final No Anaerobes Isolated 3 Days 02/03/25 12:55 Cerebral Spinal Fluid Gram Stain - Final Meds Allergies and Active Meds Allergies No Known Allergies Allergy (Verified 01/26/25 07:34) Active Meds: Active Medications Generic Name Dose Route Start Last Admin Trade Name Larsq PRN Reason Stop Dose Admin Acetaminophen 500 mg 01/30/25 21:03 02/05/25 21:22 Acetaminophen 500 Mg Tablet PO 01/30/26 21:02 500 mg Q4H PRN Administration Pain Al Hydrox/Mg Hydrox/Simethicone 30 ml 01/30/25 21:03 Mag Hydrox/Al Hydrox/Simeth 30 Ml Udc PO 01/30/26 21:02 Q4H PRN Indigestion Apixaban 5 mg 01/31/25 09:00 02/07/25 08:41 Apixaban 5 Mg Tablet PO 01/31/26 08:59 5 mg BID AL Administration Aspirin 81 mg 02/04/25 09:00 02/07/25 08:41 Aspirin 81 Mg Tablet. PO 02/04/26 08:59 81 mg DAILY AL Administration Atorvastatin Calcium 80 mg 01/31/25 21:00 02/06/25 21:02 Atorvastatin 80 Mg Tablet PO 01/31/26 20:59 80 mg QPM AL Administration Bisacodyl 10 mg 01/30/25 21:03 Bisacodyl 10 Mg Supp.Rect MD 01/30/26 21:02 DAILY PRN Constipation Docusate Sodium 100 mg 01/30/25 21:03 02/06/25 21:02 Docusate 100 Mg Capsule PO 01/30/26 21:02 100 mg BID PRN Administration Constipation Docusate Sodium 283 mg 01/30/25 21:03 Docusate Enema 283 Mg/5 Ml Enema MD 01/30/26 21:02 DAILY PRN Constipation Lactulose 30 gm 01/30/25 21:03 Lactulose 20 Gm/30 Ml Udc PO 01/30/26 21:02 DAILY PRN Constipation Levetiracetam 1,000 mg 01/31/25 09:00 02/07/25 08:41 Levetiracetam 500 Mg Tablet PO 01/31/26 08:59 1,000 mg BID AL Administration Levothyroxine Sodium 50 mcg 01/31/25 06:30 02/07/25 05:38 Levothyroxine 50 Mcg Tablet PO 01/31/26 06:29 50 mcg DAILY.0630 AL Administration Lisinopril 20 mg 01/31/25 09:00 02/07/25 08:41 Lisinopril 20 Mg Tablet PO 01/31/26 08:59 20 mg DAILY AL Administration Metoprolol Succinate 50 mg 01/31/25 09:00 02/07/25 08:41 Metoprolol Succinate 50 Mg Tab.Er.24h PO 01/31/26 08:59 50 mg DAILY AL Administration Pantoprazole Sodium 40 mg 01/31/25 18:00 02/06/25 18:09 Pantoprazole 40 Mg Tablet.Dr PO 01/31/26 17:59 40 mg DAILY.PC.SUPPER AL Administration Quetiapine Fumarate 25 mg 01/31/25 22:00 02/06/25 21:02 Quetiapine Fumarate 25 Mg Tablet PO 01/31/26 21:59 25 mg QHS AL Administration Sennosides 17.2 mg 01/31/25 12:00 Sennosides 8.6 Mg Tablet PO 01/31/26 11:59 DAILY@12 PRN If no BM in 2 days Sodium Chloride 0 ml 01/31/25 09:00 02/07/25 08:41 Sodium Chloride 0.9 % 10 Ml Syringe IV-PUSH 01/31/26 08:59 10 ml BID AL Administration A&P - Hospitalist Assessment/Plan (1) Seizure disorder, focal motor: (2) Hemiballismus: (3) Atrial fibrillation: (4) Hypothyroid: (5) Hyperlipidemia: Plan Seizure-Like Episode/Hemiballismus Impaired mobility and activities of daily living ?Plan of care for rehabilitation, PT/OT, DVT prophylaxis per PM&R team ?Levetiracetam. Post LP 02/03 further management per neurology. Eventual repeat MRI New onset paroxysmal atrial fibrillation ?Metoprolol, apixaban Chronic conditions: 1. Hypertension?metoprolol, lisinopril 2. Hypothyroidism?levothyroxine 3. Hyperlipidemia?atorvastatin 4. Right lower extremity skin lesion?following up with the [place] outpatient Documented By: Jillian Mendez, JOAQUÍN 01/26 02/19 1213 Signed By: 02/07/25 1559 [facility]03-13-2025 [place] [address] Physiatry(Rehab) Progress Note Signed Patient: Bailee Traore MR#: [id number] : 1945 Acct:[id number] Age/Sex: 79 / M Adm Date: 5 Loc: Room: 3W2535-7 Type: ADM IN Attending Dr: Omkar Louie MD Copies to: ~ Date of Service: 02/07/2025 Subjective Subjective Narrative: Mr. Traore is a 79 year old male who presents with multifactorial functional decline in the setting of what was initially thought to be acute stroke, but on further evaluation is non-traumatic braindysfunction, broad differential including seizure, autoimmune encephalitis, brain tumor such as glioma. Per chart review, the patient was found down at home. Upon presentation to the hospital, NIH score was 10. 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 Did not receive thrombolytic therapy due to unknown timeline. Was also noted to be in afib with RVR on presentation and was given 5 mg IV Lopressor with conversion back to NSR. He also was noted to have a focal seizure. Has since been started on Keppra and PRN Ativan. Ongoing workup per neurology as noted. Possibly pending lumbar puncture which would require Eliquisto be on hold. Defer to them for timing of that. Interval history: He is doing well today. He is a little bit distractible and somewhat tangential. His attention spanis limited. He is ambulatory and working with speech therapy. He would like to return home at discharge although seems to understand it may be difficult for him to do that. Review of Systems Review of Systems All other systems reviewed & are negative unless noted below or in HPI Exam Physical Exam Vital Signs: Temp Pulse Resp BP Pulse Ox O2 Del Method 97.6 F 62 14 123/75 97 Room Air 02/07/25 11:57 02/07/25 11:57 02/07/25 11:57 02/07/25 11:57 02/07/25 11:57 02/07/25 11:57 Narrative: Pleasant No acute distress Alert and oriented x 3 but delayed processing and mild confusion noted Generalized weakness Ataxic Objective Labs 02/07/25 04:58 02/07/25 04:58 Labs: Laboratory Results - last 24 hr 02/03/25 02/07/25 12:55 04:58 Corrected WBC 6.7 Uncorrected WBC Count 6.7 RBC 4.33 Hgb 12.7 L Hct 37.3 L MCV 86.0 MCH 29.2 MCHC 33.9 RDW 13.9 Plt Count 164 MPV 9.0 Neut % (Auto) 41.9 Lymph % (Auto) 41.8 Meade % (Auto) 10.8 Eos % (Auto) 5.1 Baso % (Auto) 0.4 Nucleat RBC Rel Count 0.2 Neut # (Auto) 2.8 Lymph # (Auto) 2.8 Meade # (Auto) 0.7 Eos # (Auto) 0.3 Baso # (Auto) 0.0 PHA Creatinine Clear 79.49 Sodium 139 Potassium 4.3 Chloride 108 H Carbon Dioxide 27.2 Anion Gap 8.1 BUN 15 Creatinine 0.79 Est GFR (CKD-EPI) > 60.0 Glucose 86 Calcium 8.3 L CSF Cryptococcus Ag Negative Medications and Allergies Allergies and Active Meds: Allergies No Known Allergies Allergy (Verified 01/26/25 07:34) Active Medications Generic Name Dose Route Start Last Admin Trade Name Freq PRN Reason Stop Dose Admin Acetaminophen 500 mg 01/30/25 21:03 02/05/25 21:22 Acetaminophen 500 Mg Tablet PO 01/30/26 21:02 500 mg Q4H PRN Administration Pain Al Hydrox/Mg Hydrox/Simethicone 30 ml 01/30/25 21:03 Mag Hydrox/Al Hydrox/Simeth 30 Ml Udc PO 01/30/26 21:02 Q4H PRN Indigestion Apixaban 5 mg 01/31/25 09:00 02/07/25 08:41 Apixaban 5 Mg Tablet PO 01/31/26 08:59 5 mg BID AL Administration Aspirin 81 mg 02/04/25 09:00 02/07/25 08:41 Aspirin 81 Mg Tablet.Dr PO 02/04/26 08:59 81 mg DAILY AL Administration Atorvastatin Calcium 80 mg 01/31/25 21:00 02/06/25 21:02 Atorvastatin 80 Mg Tablet PO 01/31/26 20:59 80 mg QPM AL Administration Bisacodyl 10 mg 01/30/25 21:03 Bisacodyl 10 Mg Supp.Rect MD 01/30/26 21:02 DAILY PRN Constipation Docusate Sodium 100 mg 01/30/25 21:03 02/06/25 21:02 Docusate 100 Mg Capsule PO 01/30/26 21:02 100 mg BID PRN Administration Constipation Docusate Sodium 283 mg 01/30/25 21:03 Docusate Enema 283 Mg/5 Ml Enema MD 01/30/26 21:02 DAILY PRN Constipation Lactulose 30 gm 01/30/25 21:03 Lactulose 20 Gm/30 Ml Udc PO 01/30/26 21:02 DAILY PRN Constipation Levetiracetam 1,000 mg 01/31/25 09:00 02/07/25 08:41 Levetiracetam 500 Mg Tablet PO 01/31/26 08:59 1,000 mg BID AL Administration Levothyroxine Sodium 50 mcg 01/31/25 06:30 02/07/25 05:38 Levothyroxine 50 Mcg Tablet PO 01/31/26 06:29 50 mcg DAILY.0630 AL Administration Lisinopril 20 mg 01/31/25 09:00 02/07/25 08:41 Lisinopril 20 Mg Tablet PO 01/31/26 08:59 20 mg DAILY AL Administration Metoprolol Succinate 50 mg 01/31/25 09:00 02/07/25 08:41 Metoprolol Succinate 50 Mg Tab.Er.24h PO 01/31/26 08:59 50 mg DAILY AL Administration Pantoprazole Sodium 40 mg 01/31/25 18:00 02/06/25 18:09 Pantoprazole 40 Mg Tablet.Dr PO 01/31/26 17:59 40 mg DAILY.PC.SUPPER AL Administration Quetiapine Fumarate 25 mg 01/31/25 22:00 02/06/25 21:02 Quetiapine Fumarate 25 Mg Tablet PO 01/31/26 21:59 25 mg QHS AL Administration Sennosides 17.2 mg 01/31/25 12:00 Sennosides 8.6 Mg Tablet PO 01/31/26 11:59 DAILY@12 PRN If no BM in 2 days Sodium Chloride 0 ml 01/31/25 09:00 02/07/25 08:41 Sodium Chloride 0.9 % 10 Ml Syringe IV-PUSH 01/31/26 08:59 10 ml BID AL Administration Assessment/Plan Assessment/Plan (1) Nontraumatic brain injury: Plan: PT to improve pt's strength, endurance, bed mobility, transfers (sit-stand), standing balance, gaitquality on level surfaces and stairs, coordination and functional ADL skills. Will also work to improve pt's safety awareness during transfers and ambulation. OT for basic ADL re-training (bathing, dressing, toileting, continence, grooming, feeding, transferring), to increase activity tolerance and functional mobility and to evaluate for adaptive and assistive devices. Will work to improve pt's endurance and educate pt on fall prevention and energy conser vationtechniques-pacing strategies and proper breathing techniques during functional tasks. CONSTRUCTION OR LEAK GANG LABORER to evaluate and treat patient?s cognition, language and communication skills, assess swallow function. Patient education Pressure ulcer prophylaxis; encourage mobilization, frequent postural changes, pressure-relief techniques DVT prophylaxis Encourage deep breathing exercise incentive spirometry. Monitor bladder. Toileting schedule. Continue current bladder management, with scans as needed and CIC if needed. Start bowel care program every day to obtain continence, prevent ileus. Maintain fall precautions Gait and balance retraining Provision of the necessary gait aids and functional adaptive equipment to enhance the patient's a functional faith Encourage deep breathing exercises and incentive spirometry RD evaluation Ensure adequate nutrition and hydration Discharge planning. 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 Traore is a 79 year old male who presents with multifactorial functional decline in the setting of what was initially thought to be acute stroke, but on further evaluation is non-traumatic braindysfunction, broad differential including seizure, autoimmune encephalitis, brain tumor such as glioma. -Continues to improve. I would agree with snf versus home with homehealth care soon. Anthony need a follow-up MRI with and without contrast but not for a few weeks, depending on the results of that he may or may not need a neurology follow-up for additional recommendations depending on appearance of the lesion. Hospitalist to assist with management of comorbid medical conditions Pain control: Limit sedating medications. Bowel and bladder: Pizano noted. Skin: As ordered, turn and position for offloading. Sleep: Optimize sleep / wake to reduce seizure risk DVT prophylaxis: As ordered, anticoagulated with Eliquis Functional status: Impaired, see PT/OT/CONSTRUCTION OR LEAK GANG LABORER. Discharge planning:Home in 1-2 weeks, lives home alone. I spent 25 minutes for services, including [id number] encounter with the patient, discussion of the case, plan of care, and exam; and jghrelb-me-qwco activities, such as reviewing pertinent search engine optimization consultant documentation, recent therapynotes, laboratory and radiology studies, and discussion of case with care team including physician, nursing, wrapper caser, and therapists. More than 50 % of time was spent on patient/family counseling or coordination ofcare. Documented By: Omkar Louie MD 02/07/25 1359 Signed By: 02/07/25 1402 [facility]03-12-2025 Progress note Author Romy Leon [facility] Note Date/Time February 06, 2025 9:4 9pm [facility] [address] [place] [address] Physiatry(Rehab) Progress Note Signed Patient: Bailee Traore MR#: [id number] : 1945 Acct:[id number] Age/Sex: 79 / M Adm Date: 5 Loc: 5T Room: [id number] Type: ADM IN Attending Dr: Omkar Louie MD Copies to: ~ Date of Service: 02/06/2025 Subjective Subjective Narrative: Mr. Traore is a 79 year old male who presents with multifactorial functional decline in the setting of what was initially thought to be acute stroke, but on further evaluation is non-traumatic brain dysfunction, broad differential including seizure, autoimmune encephalitis, brain tumor such as glioma. Per chart review, the patient was found down at home. Upon presentation to the hospital, NIH score was 10. 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 Did not receive thrombolytic therapy due to unknown timeline. Was also noted to be in afib with RVR on presentation and was given 5 mg IV Lopressor with conversion back to NSR. He also was noted to have a focal seizure. Has since been started on Keppra and PRN Ativan. Ongoing workup per neurology as noted. Possibly pending lumbar puncture which would require Eliquis to be on hold. Defer to them for timing of that. Interval history: Patient examined in his room while sitting up in a wheelchair. He is alert, pleasant, oriented. Offers no new concerns or complaints. He is legs are notedto be somewhat edematous today. There is a right medial joyce lesion which is suspicious for squamous cell carcinoma. Per the patient, this lesion has been present for many months and was evaluated by his PCP prior to the most recent admission with a referral given to a [place] dx board operator in [place]. He has not had a chance to follow-up but will do so upon discharge from here. Per the patient, it is not painful nor has it been draining. We can monitor the lesion for now. I encouraged the patient to keep his legs elevated to help with edema, he does not want the DEXTER hose. Therapy rivera, he is doing well. At this time he is ambulatory> 200 feet with a walker and contact-guard assist and able to do some stairs with assistance. Requires CGA/min assist with transfers. Review of Systems Review of Systems All other systems reviewed & are negative unless noted below or in HPI Exam Physical Exam Vital Signs: Temp Pulse Resp BP Pulse Ox O2 Del Method 97.4 F L 63 18 153/84 H 99 Room Air 02/06/25 10:58 02/06/25 10:58 02/06/25 10:58 02/06/25 10:58 02/06/25 10:58 02/06/25 10:58 Narrative: General: Awake, alert, oriented x3 HENT: Normal to inspection, normocephalic, atraumatic Eyes: PERRL, normal conjunctiva and sclera Neck: Normal ROM, normal visual inspection. Trachea midline. Cardio: Regular heart rate and rhythm Respiratory: Clear to auscultation bilaterally. Normal respiratory effort. No respiratory distress. GI: Abdomen soft, nontender, nondistended, active bowel sounds x4 quadrants Neuro: CN II-XII intact. Strength 5/5, equal bilaterally. No focal deficits noted at this time. Extremities: No edema, erythema, cyanosis Psych: Mood and affect appropriate. Normal speech. Objective Labs 02/03/25 04:57 02/02/25 04:55 Additional Results Results Comments: I reviewed clinical lab tests, radiology reports and obtained and summated medical records and have ordered follow up lab tests and imaging studies as needed for rehabilitation care. Reviewed Medications and Allergies Allergies and Active Meds: Allergies No Known Allergies Allergy (Verified 01/26/25 07:34) Active Medications Generic Name Dose Route Start Last Admin Trade Name Freq PRN Reason Stop Dose Admin Acetaminophen 500 mg 01/30/25 21:03 02/05/25 21:22 Acetaminophen 500 Mg Tablet PO 01/30/26 21:02 500 mg Q4H PRN Administration Pain Al Hydrox/Mg Hydrox/Simethicone 30 ml 01/30/25 21:03 Mag Hydrox/Al Hydrox/Simeth 30 Ml Udc PO 01/30/26 21:02 Q4H PRN Indigestion Apixaban 5 mg 01/31/25 09:00 02/06/25 10:05 Apixaban 5 Mg Tablet PO 01/31/26 08:59 5 mg BID AL Administration Aspirin 81 mg 02/04/25 09:00 02/06/25 10:05 Aspirin 81 Mg Tablet. PO 02/04/26 08:59 81 mg DAILY AL Administration Atorvastatin Calcium 80 mg 01/31/25 21:00 02/05/25 21:22 Atorvastatin 80 Mg Tablet PO 01/31/26 20:59 80 mg QPM AL Administration Bisacodyl 10 mg 01/30/25 21:03 Bisacodyl 10 Mg Supp.Rect MD 01/30/26 21:02 DAILY PRN Constipation Docusate Sodium 100 mg 01/30/25 21:03 Docusate 100 Mg Capsule PO 01/30/26 21:02 BID PRN Constipation Docusate Sodium 283 mg 01/30/25 21:03 Docusate Enema 283 Mg/5 Ml Enema MD 01/30/26 21:02 DAILY PRN Constipation Lactulose 30 gm 01/30/25 21:03 Lactulose 20 Gm/30 Ml Udc PO 01/30/26 21:02 DAILY PRN Constipation Levetiracetam 1,000 mg 01/31/25 09:00 02/06/25 10:05 Levetiracetam 500 Mg Tablet PO 01/31/26 08:59 1,000 mg BID AL Administration Levothyroxine Sodium 50 mcg 01/31/25 06:30 02/06/25 06:30 Levothyroxine 50 Mcg Tablet PO 01/31/26 06:29 50 mcg DAILY.0630 AL Administration Lisinopril 20 mg 01/31/25 09:00 02/06/25 10:05 Lisinopril 20 Mg Tablet PO 01/31/26 08:59 20 mg DAILY AL Administration Metoprolol Succinate 50 mg 01/31/25 09:00 02/06/25 10:05 Metoprolol Succinate 50 Mg Tab.Er.24h PO 01/31/26 08:59 50 mg DAILY AL Administration Pantoprazole Sodium 40 mg 01/31/25 18:00 02/05/25 18:18 Pantoprazole 40 Mg Tablet.Dr PO 01/31/26 17:59 40 mg DAILY.PC.SUPPER AL Administration Quetiapine Fumarate 25 mg 01/31/25 22:00 02/05/25 21:22 Quetiapine Fumarate 25 Mg Tablet PO 01/31/26 21:59 25 mg QHS AL Administration Sennosides 17.2 mg 01/31/25 12:00 Sennosides 8.6 Mg Tablet PO 01/31/26 11:59 DAILY@12 PRN If no BM in 2 days Sodium Chloride 0 ml 01/31/25 09:00 02/06/25 10:11 Sodium Chloride 0.9 % 10 Ml Syringe IV-PUSH 01/31/26 08:59 10 ml BID AL Administration Assessment/Plan Assessment/Plan (1) Nontraumatic brain injury: Plan: PT to improve pt's strength, endurance, bed mobility, transfers (sit-stand), standing balance, gait quality on level surfaces and stairs, coordination and functional ADL skills. Will also work to improve pt's safety awareness during transfers and ambulation. OT for basic ADL re-training (bathing, dressing, toileting, continence, grooming, feeding, transferring), to increase activity tolerance and functional mobility and to evaluate for adaptive and assistive devices. Will work to improve pt's endurance and educate pt on fall prevention and energy conservationtechniques-pacing strategies and proper breathing techniques during functional tasks. CONSTRUCTION OR LEAK GANG LABORER to evaluate and treat patient?s cognition, language and communication skills, assess swallow function. Patient education Pressure ulcer prophylaxis; encourage mobilization, frequent postural changes, pressure-relief techniques DVT prophylaxis Encourage deep breathing exercise incentive spirometry. Monitor bladder. Toileting schedule. Continue current bladder management, with scans as needed and CIC if needed. Start bowel care program every day to obtain continence, prevent ileus. Maintain fall precautions Gait and balance retraining Provision of the necessary gait aids and functional adaptive equipment to enhance the patient's a functional faith Encourage deep breathing exercises and incentive spirometry RD evaluation Ensure adequate nutrition and hydration Discharge planning. 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 Traore is a 79 year old male who presents with multifactorial functional decline in the setting of what was initially thought to be acute stroke, but on further evaluation is non-traumatic brain dysfunction, broad differential including seizure, autoimmune encephalitis, brain tumor such as glioma. -Overall doing well, no acute concerns or complaints. -Will need a dermatology follow-up/referral for suspicious right lower extremitylesion -[place] likely need SNF placement [place] -I continued to advise against driving at [place] Hospitalist to assist with management of comorbid medical conditions Pain control: Limit sedating medications. Bowel and bladder: Pizano noted. Skin: As ordered, turn and position for offloading. Sleep: Optimize sleep / wake to reduce seizure risk DVT prophylaxis: As ordered, anticoagulated with Eliquis Functional status: Impaired, see PT/OT/CONSTRUCTION OR LEAK GANG LABORER. Discharge planning:Home in 1-2 weeks, lives home alone. I spent 18 minutes for services, including [id number] encounter with the patient, discussion of the case, plan of care, and exam; and zikndvs-at-[id number] activities, such as reviewing pertinent search engine optimization consultant documentation, recent therapynotes, laboratory and radiology studies, and discussion of case with care team including physician, nursing, wrapper caser, and therapists. More than 50 % of time was spent on patient/family counseling or coordination ofcare. <Statement entered by Oren Lara MD - 02/06/25 21:49> This documentation has been reviewed and approved. Documented By: Romy Leon APRN 02/06/25 1 258 Signed By: <Electronically signed by JOAQUÍN Leon> 02/06/25 1306 <Electronically signed by Oren Lara MD> 02/06/25 9623 [facility] Work Phone: [phone]) 925-998003-12-2025 [place] [address] Physiatry(Rehab) Progress Note Signed Patient: Bailee Traore MR#: [id number] : 1945 Acct:[id number] Age/Sex: 79 / M Adm Date: 5 Loc: Room: [address] [place] [address] Type: ADM IN Attending Dr: Omkar Louie MD Copies to: ~ Date of Service: 02/06/2025 Subjective Subjective Narrative: Mr. Traore is a 79 year old male who presents with multifactorial functional decline in the setting of what was initially thought to be acute stroke, but on further evaluation is non-traumatic braindysfunction, broad differential including seizure, autoimmune encephalitis, brain tumor such as glioma. Per chart review, the patient was found down at home. Upon presentation to the hospital, NIH score was 10. 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 Did not receive thrombolytic therapy due to unknown timeline. Was also noted to be in afib with RVR on presentation and was given 5 mg IV Lopressor with conversion back to NSR. He also was noted to have a focal seizure. Has since been started on Keppra and PRN Ativan. Ongoing workup per neurology as noted. Possibly pending lumbar puncture which would require Eliquisto be on hold. Defer to them for timing of that. Interval history: Patient examined in his room while sitting up in a wheelchair. He is alert, pleasant, oriented. Offers no new concerns or complaints. He is legs are notedto be somewhat edematous today. There is a right medial joyce lesion which is suspicious for squamous cell carcinoma. Per the patient, this lesionhas been present for many months and was evaluated by his PCP prior to the most recent admission with a referral given to a [place] dx board operator in [place]. He has not had a chance to follow-up but will do so upon discharge from here. Per the patient, it is not painful nor has it been draining. We can monitor the lesion for now. I encouraged the patient to keep his legs elevated to help with edema, he does not want the DEXTER hose. Therapy rivera, he is doing well. At this time he is ambulatory> 200 feet with a walker and contact-guard assist and able to do some stairs with assistance. Requires CGA/min assist with transfers. Review of Systems Review of Systems All other systems reviewed & are negative unless noted below or in HPI Exam Physical Exam Vital Signs: Temp Pulse Resp BP Pulse Ox O2 Del Method 97.4 F L 63 18 153/84 H 99 Room Air 02/06/25 10:58 02/06/25 10:58 02/06/25 10:58 02/06/25 10:58 02/06/25 10:58 02/06/25 10:58 Narrative: General: Awake, alert, oriented x3 HENT: Normal to inspection, normocephalic, atraumatic Eyes: PERRL, normal conjunctiva and sclera Neck: Normal ROM, normal visual inspection. Trachea midline. Cardio: Regular heart rate and rhythm Respiratory: Clear to auscultation bilaterally. Normal respiratory effort. No respiratory distress. GI: Abdomen soft, nontender, nondistended, active bowel sounds x4 quadrants Neuro: CN II-XII intact. Strength 5/5, equal bilaterally. No focal deficits noted at this time. Extremities: No edema, erythema, cyanosis Psych: Mood and affect appropriate. Normal speech. Objective Labs 02/03/25 04:57 02/02/25 04:55 Additional Results Results Comments: I reviewed clinical lab tests, radiology reports and obtained and summated medical records and haveordered follow up lab tests and imaging studies as needed for rehabilitation care. Reviewed Medications and Allergies Allergies and Active Meds: Allergies No Known Allergies Allergy (Verified 01/26/25 07:34) Active Medications Generic Name Dose Route Start Last Admin Trade Name Freq PRN Reason Stop Dose Admin Acetaminophen 500 mg 01/30/25 21:03 02/05/25 21:22 Acetaminophen 500 Mg Tablet PO 01/30/26 21:02 500 mg Q4H PRN Administration Pain Al Hydrox/Mg Hydrox/Simethicone 30 ml 01/30/25 21:03 Mag Hydrox/Al Hydrox/Simeth 30 Ml Udc PO 01/30/26 21:02 Q4H PRN Indigestion Apixaban 5 mg 01/31/25 09:00 02/06/25 10:05 Apixaban 5 Mg Tablet PO 01/31/26 08:59 5 mg BID AL Administration Aspirin 81 mg 02/04/25 09:00 02/06/25 10:05 Aspirin 81 Mg Tablet.Dr PO 02/04/26 08:59 81 mg DAILY AL Administration Atorvastatin Calcium 80 mg 01/31/25 21:00 02/05/25 21:22 Atorvastatin 80 Mg Tablet PO 01/31/26 20:59 80 mg QPM AL Administration Bisacodyl 10 mg 01/30/25 21:03 Bisacodyl 10 Mg Supp.Rect MD 01/30/26 21:02 DAILY PRN Constipation Docusate Sodium 100 mg 01/30/25 21:03 Docusate 100 Mg Capsule PO 01/30/26 21:02 BID PRN Constipation Docusate Sodium 283 mg 01/30/25 21:03 Docusate Enema 283 Mg/5 Ml Enema MD 01/30/26 21:02 DAILY PRN Constipation Lactulose 30 gm 01/30/25 21:03 Lactulose 20 Gm/30 Ml Udc PO 01/30/26 21:02 DAILY PRN Constipation Levetiracetam 1,000 mg 01/31/25 09:00 02/06/25 10:05 Levetiracetam 500 Mg Tablet PO 01/31/26 08:59 1,000 mg BID AL Administration Levothyroxine Sodium 50 mcg 01/31/25 06:30 02/06/25 06:30 Levothyroxine 50 Mcg Tablet PO 01/31/26 06:29 50 mcg DAILY.0630 AL Administration Lisinopril 20 mg 01/31/25 09:00 02/06/25 10:05 Lisinopril 20 Mg Tablet PO 01/31/26 08:59 20 mg DAILY AL Administration Metoprolol Succinate 50 mg 01/31/25 09:00 02/06/25 10:05 Metoprolol Succinate 50 Mg Tab.Er.24h PO 01/31/26 08:59 50 mg DAILY AL Administration Pantoprazole Sodium 40 mg 01/31/25 18:00 02/05/25 18:18 Pantoprazole 40 Mg Tablet.Dr PO 01/31/26 17:59 40 mg DAILY.PC.SUPPER AL Administration Quetiapine Fumarate 25 mg 01/31/25 22:00 02/05/25 21:22 Quetiapine Fumarate 25 Mg Tablet PO 01/31/26 21:59 25 mg QHS AL Administration Sennosides 17.2 mg 01/31/25 12:00 Sennosides 8.6 Mg Tablet PO 01/31/26 11:59 DAILY@12 PRN If no BM in 2 days Sodium Chloride 0 ml 01/31/25 09:00 02/06/25 10:11 Sodium Chloride 0.9 % 10 Ml Syringe IV-PUSH 01/31/26 08:59 10 ml BID AL Administration Assessment/Plan Assessment/Plan (1) Nontraumatic brain injury: Plan: PT to improve pt's strength, endurance, bed mobility, transfers (sit-stand), standing balance, gaitquality on level surfaces and stairs, coordination and functional ADL skills. Will also work to improve pt's safety awareness during transfers and ambulation. OT for basic ADL re-training (bathing, dressing, toileting, continence, grooming, feeding, transferring), to increase activity tolerance and functional mobility and to evaluate for adaptive and assistive devices. Will work to improve pt's endurance and educate pt on fall prevention and energy conser vationtechniques-pacing strategies and proper breathing techniques during functional tasks. CONSTRUCTION OR LEAK GANG LABORER to evaluate and treat patient?s cognition, language and communication skills, assess swallow function. Patient education Pressure ulcer prophylaxis; encourage mobilization, frequent postural changes, pressure-relief techniques DVT prophylaxis Encourage deep breathing exercise incentive spirometry. Monitor bladder. Toileting schedule. Continue current bladder management, with scans as needed and CIC if needed. Start bowel care program every day to obtain continence, prevent ileus. Maintain fall precautions Gait and balance retraining Provision of the necessary gait aids and functional adaptive equipment to enhance the patient's a functional faith Encourage deep breathing exercises and incentive spirometry RD evaluation Ensure adequate nutrition and hydration Discharge planning. 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 Traore is a 79 year old male who presents with multifactorial functional decline in the setting of what was initially thought to be acute stroke, but on further evaluation is non-traumatic braindysfunction, broad differential including seizure, autoimmune encephalitis, brain tumor such as glioma. -Overall doing well, no acute concerns or complaints. -Will need a dermatology follow-up/referral for suspicious right lower extremitylesion -Will likely need SNF placement [place] -I continued to advise against driving at [place] Hospitalist to assist with management of comorbid medical conditions Pain control: Limit sedating medications. Bowel and bladder: Pizano noted. Skin: As ordered, turn and position for offloading. Sleep: Optimize sleep / wake to reduce seizure risk DVT prophylaxis: As ordered, anticoagulated with Eliquis Functional status: Impaired, see PT/OT/CONSTRUCTION OR LEAK GANG LABORER. Discharge planning:Home in 1-2 weeks, lives home alone. I spent 18 minutes for services, including [id number]-gh-[id number] encounter with the patient, discussion of the case, plan of care, and exam; and [id number] activities, such as reviewing pertinent search engine optimization consultant documentation, recent therapynotes, laboratory and radiology studies, and discussion of case with care team including physician, nursing, wrapper caser, and therapists. More than 50 % of time was spent on patient/family counseling or coordination ofcare. This documentation has been reviewed and approved. Documented By: Romy Leon APRN 02/06/25 1 258 Signed By: 02/06/25 1306 02/06/25 214 [facility]03-11-2025 Progress note Author Oren Lara [facility] Note Date/Time February 05, 2025 9:4 5pm [facility] [address] [place] [address] Physiatry(Rehab) Progress Note Signed Patient: Bailee Traore MR#: [id number] : 1945 Acct:[id number] Age/Sex: 79 / M Adm Date: 5 Loc: Room: [address] [place] [address] Type: ADM IN Attending Dr: Omkar Louie MD Copies to: ~ Date of Service: 02/05/2025 Subjective Subjective Narrative: Mr. Traore is a 79 year old male who presents with multifactorial functional decline in the setting of what was initially thought to be acute stroke, but on further evaluation is non-traumatic brain dysfunction, broad differential including seizure, autoimmune encephalitis, brain tumor such as glioma. Per chart review, the patient was found down at home. Upon presentation to the hospital, NIH score was 10. 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 Did not receive thrombolytic therapy due to unknown timeline. Was also noted to be in afib with RVR on presentation and was given 5 mg IV Lopressor with conversion back to NSR. He also was noted to have a focal seizure. Has since been started on Keppra and PRN Ativan. Ongoing workup per neurology as noted. Possibly pending lumbar puncture which would require Eliquis to be on hold. Defer to them for timing of that. Interval history: Patient was seen and evaluated today. Patients friends, Mirza and Steffen, were present at the time of evaluation. His friends endorse general frustration as they thought they would be meeting with Dr. Amzequita at 1130 and he did not come. I discussed that I would be able to answer any questions to the best of my knowledge and explained that neurology feels he has a glioma and will need follow up MRI outpatient as well as eventual oncology referral outpatient. I also explained that several labs are still pending. Mirza became visible upset and proceeded to become angry and vocally belligerent. He voiced that he was upset as he felt that his time was being wasted and that we were not giving him answers. At that time I was unaware of who he was so I asked him his name so I verify that I could give him information about the patient. He proceeded to pullout a piece of paper with him several names on it stating, thats who I am . He got very close to me and was being increasingly threatening so I asked him to step away and calm down or I would need to call [facility]. He proceeded to leavethe room stating that I, would be hearing from his finish grinder . I proceeded to provide information to Steffen about the patient including DC planning. At this time will continue to work with him on the rehab unit but willneed eventual SNF placement. In addition, I continued to advise the patient not to drive upon discharge. Steffen was very apologetic about the interaction with Mirza. I did discuss this situation with as well. Review of Systems Review of Systems All other systems reviewed & are negative unless noted below or in HPI Exam Physical Exam Vital Signs: Temp Pulse Resp BP Pulse Ox O2 Del Method 97.9 F 62 18 158/63 H 99 Room Air 02/05/25 04:10 02/05/25 08:05 02/05/25 04:10 02/05/25 08:05 02/05/25 04:10 02/05/25 07:30 Narrative: Pleasant No acute distress Alert and oriented x 3 but delayed processing and mild confusion noted Generalized weakness Ataxic Objective Labs 02/03/25 04:57 02/02/25 04:55 Medications and Allergies Allergies and Active Meds: Allergies No Known Allergies Allergy (Verified 01/26/25 07:34) Active Medications Generic Name Dose Route Start Last Admin Trade Name Freq PRN Reason Stop Dose Admin Acetaminophen 500 mg 01/30/25 21:03 02/04/25 21:21 Acetaminophen 500 Mg Tablet PO 01/30/26 21:02 500 mg Q4H PRN Administration Pain Al Hydrox/Mg Hydrox/Simethicone 30 ml 01/30/25 21:03 Mag Hydrox/Al Hydrox/Simeth 30 Ml Udc PO 01/30/26 21:02 Q4H PRN Indigestion Apixaban 5 mg 01/31/25 09:00 02/05/25 07:59 Apixaban 5 Mg Tablet PO 01/31/26 08:59 5 mg BID AL Administration Aspirin 81 mg 02/04/25 09:00 02/05/25 07:59 Aspirin 81 Mg Tablet. PO 02/04/26 08:59 81 mg DAILY AL Administration Atorvastatin Calcium 80 mg 01/31/25 21:00 02/04/25 21:21 Atorvastatin 80 Mg Tablet PO 01/31/26 20:59 80 mg QPM AL Administration Bisacodyl 10 mg 01/30/25 21:03 Bisacodyl 10 Mg Supp.Rect MD 01/30/26 21:02 DAILY PRN Constipation Docusate Sodium 100 mg 01/30/25 21:03 Docusate 100 Mg Capsule PO 01/30/26 21:02 BID PRN Constipation Docusate Sodium 283 mg 01/30/25 21:03 Docusate Enema 283 Mg/5 Ml Enema MD 01/30/26 21:02 DAILY PRN Constipation Lactulose 30 gm 01/30/25 21:03 Lactulose 20 Gm/30 Ml Udc PO 01/30/26 21:02 DAILY PRN Constipation Levetiracetam 1,000 mg 01/31/25 09:00 02/05/25 07:59 Levetiracetam 500 Mg Tablet PO 01/31/26 08:59 1,000 mg BID AL Administration Levothyroxine Sodium 50 mcg 01/31/25 06:30 02/05/25 04:16 Levothyroxine 50 Mcg Tablet PO 01/31/26 06:29 50 mcg DAILY.0630 AL Administration Lisinopril 20 mg 01/31/25 09:00 02/05/25 07:59 Lisinopril 20 Mg Tablet PO 01/31/26 08:59 20 mg DAILY AL Administration Metoprolol Succinate 50 mg 01/31/25 09:00 02/05/25 07:59 Metoprolol Succinate 50 Mg Tab.Er.24h PO 01/31/26 08:59 50 mg DAILY AL Administration Pantoprazole Sodium 40 mg 01/31/25 18:00 02/04/25 18:41 Pantoprazole 40 Mg Tablet.Dr PO 01/31/26 17:59 40 mg DAILY.PC.SUPPER AL Administration Quetiapine Fumarate 25 mg 01/31/25 22:00 02/04/25 21:21 Quetiapine Fumarate 25 Mg Tablet PO 01/31/26 21:59 25 mg QHS AL Administration Sennosides 17.2 mg 01/31/25 12:00 Sennosides 8.6 Mg Tablet PO 01/31/26 11:59 DAILY@12 PRN If no BM in 2 days Sodium Chloride 0 ml 01/31/25 09:00 02/05/25 08:00 Sodium Chloride 0.9 % 10 Ml Syringe IV-PUSH 01/31/26 08:59 10 ml BID AL Administration Assessment/Plan Assessment/Plan (1) Nontraumatic brain injury: Plan: PT to improve pt's strength, endurance, bed mobility, transfers (sit-stand), standing balance, gait quality on level surfaces and stairs, coordination and functional ADL skills. Will also work to improve pt's safety awareness during transfers and ambulation. OT for basic ADL re-training (bathing, dressing, toileting, continence, grooming, feeding, transferring), to increase activity tolerance and functional mobility and to evaluate for adaptive and assistive devices. Will work to improve pt's endurance and educate pt on fall prevention and energy conservationtechniques-pacing strategies and proper breathing techniques during functional tasks. CONSTRUCTION OR LEAK GANG LABORER to evaluate and treat patient?s cognition, language and communication skills, assess swallow function. Patient education Pressure ulcer prophylaxis; encourage mobilization, frequent postural changes, pressure-relief techniques DVT prophylaxis Encourage deep breathing exercise incentive spirometry. Monitor bladder. Toileting schedule. Continue current bladder management, with scans as needed and CIC if needed. Start bowel care program every day to obtain continence, prevent ileus. Maintain fall precautions Gait and balance retraining Provision of the necessary gait aids and functional adaptive equipment to enhance the patient's a functional faith Encourage deep breathing exercises and incentive spirometry RD evaluation Ensure adequate nutrition and hydration Discharge planning. 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 Traore is a 79 year old male who presents with multifactorial functional decline in the setting of what was initially thought to be acute stroke, but on further evaluation is non-traumatic brain dysfunction, broad differential including seizure, autoimmune encephalitis, brain tumor such as glioma. -Improving -Spoke with neurology. 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 Will need an oncology referral although this can be arranged outpatient. Will also need f/u with neurology -No major concerns. Continue therapy as ordered -Will likely need SNF placement at [place] -I continued to advise against driving at [place] *Please note interaction with visitor in patients room as outlined above Hospitalist to assist with management of comorbid medical conditions Pain control: Limit sedating medications. Bowel and bladder: Piznao noted. Skin: As ordered, turn and position for offloading. Sleep: Optimize sleep / wake to reduce seizure risk DVT prophylaxis: As ordered, anticoagulated with Eliquis Functional status: Impaired, see PT/OT/CONSTRUCTION OR LEAK GANG LABORER. Discharge planning:Home in 1-2 weeks, lives home alone. I spent 46 minutes for services, including [id number] encounter with the patient, discussion of the case, plan of care, and exam; and [id number] activities, such as reviewing pertinent search engine optimization consultant documentation, recent therapynotes, laboratory and radiology studies, and discussion of case with care team including physician, nursing, wrapper caser, and therapists. More than 50 % of time was spent on patient/family counseling or coordination ofcare. xam and I formulated the plan of care and facilitated the medical decision making. Documented By: Oren Lara MD [id number] Signed By: <Electronically signed by Oren Lara MD> 02/05/25 [facility]6 [facility] Work Phone: [phone] [place] [address] Physiatry(Rehab) Progress Note Signed Patient: Bailee Traore MR#: [id number] : 1945 Acct:[id number] Age/Sex: 79 / M Adm Date: 5 Loc: Room: 7Y9128-0 Type: ADM IN Attending Dr: Omkar Louie MD Copies to: ~ Date of Service: 02/05/2025 Subjective Subjective Narrative: Mr. Traore is a 79 year old male who presents with multifactorial functional decline in the setting of what was initially thought to be acute stroke, but on further evaluation is non-traumatic braindysfunction, broad differential including seizure, autoimmune encephalitis, brain tumor such as glioma. Per chart review, the patient was found down at home. Upon presentation to the hospital, NIH score was 10. 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 Did not receive thrombolytic therapy due to unknown timeline. Was also noted to be in afib with RVR on presentation and was given 5 mg IV Lopressor with conversion back to NSR. He also was noted to have a focal seizure. Has since been started on Keppra and PRN Ativan. Ongoing workup per neurology as noted. Possibly pending lumbar puncture which would require Eliquisto be on hold. Defer to them for timing of that. Interval history: Patient was seen and evaluated today. Patients friends, Mirza and Steffen, were present at the time of evaluation. His friends endorse general frustration as they thought they would be meeting with Dr. Amezquita at 1130 and he did not come. I discussed that I would be able to answer any questions to the best of my knowledge and explained that neurology feels he has a glioma and will need follow up MRI outpatient as well as eventual oncology referral outpatient. I also explained that several labs are still pending. Mirza became visible upset and proceeded to become angry and vocally belligerent. He voiced that he was upset as he felt that his time was being wasted and that we were not giving him answers. At that time I was unaware of who he was so I asked him his name so I verify that I could give him information about the patient. He proceeded to pullout a piece of paper with him several nameson it stating, thats who I am . He got very close to me and was being increasingly threatening so I asked him to step away and calm down or I would need to call [facility]. He proceeded to leavethe room stating that I, would be hearing from his finish grinder . I proceeded to provide information to Steffen about the patient including DC planning. At this time will continue to work with him on the rehab unit but willneed eventual SNF placement. In addition, I continued to advise the patient not to drive upon discharge. Steffen was very apologetic about the interaction with Mirza. I did discuss this situation with security as well. Review of Systems Review of Systems All other systems reviewed & are negative unless noted below or in HPI Exam Physical Exam Vital Signs: Temp Pulse Resp BP Pulse Ox O2 Del Method 97.9 F 62 18 158/63 H 99 Room Air 02/05/25 04:10 02/05/25 08:05 02/05/25 04:10 02/05/25 08:05 02/05/25 04:10 02/05/25 07:30 Narrative: Pleasant No acute distress Alert and oriented x 3 but delayed processing and mild confusion noted Generalized weakness Ataxic Objective Labs 02/03/25 04:57 02/02/25 04:55 Medications and Allergies Allergies and Active Meds: Allergies No Known Allergies Allergy (Verified 01/26/25 07:34) Active Medications Generic Name Dose Route Start Last Admin Trade Name Larsq PRN Reason Stop Dose Admin Acetaminophen 500 mg 01/30/25 21:03 02/04/25 21:21 Acetaminophen 500 Mg Tablet PO 01/30/26 21:02 500 mg Q4H PRN Administration Pain Al Hydrox/Mg Hydrox/Simethicone 30 ml 01/30/25 21:03 Mag Hydrox/Al Hydrox/Simeth 30 Ml Udc PO 01/30/26 21:02 Q4H PRN Indigestion Apixaban 5 mg 01/31/25 09:00 02/05/25 07:59 Apixaban 5 Mg Tablet PO 01/31/26 08:59 5 mg BID AL Administration Aspirin 81 mg 02/04/25 09:00 02/05/25 07:59 Aspirin 81 Mg Tablet.Dr PO 02/04/26 08:59 81 mg DAILY AL Administration Atorvastatin Calcium 80 mg 01/31/25 21:00 02/04/25 21:21 Atorvastatin 80 Mg Tablet PO 01/31/26 20:59 80 mg QPM AL Administration Bisacodyl 10 mg 01/30/25 21:03 Bisacodyl 10 Mg Supp.Rect MD 01/30/26 21:02 DAILY PRN Constipation Docusate Sodium 100 mg 01/30/25 21:03 Docusate 100 Mg Capsule PO 01/30/26 21:02 BID PRN Constipation Docusate Sodium 283 mg 01/30/25 21:03 Docusate Enema 283 Mg/5 Ml Enema MD 01/30/26 21:02 DAILY PRN Constipation Lactulose 30 gm 01/30/25 21:03 Lactulose 20 Gm/30 Ml Udc PO 01/30/26 21:02 DAILY PRN Constipation Levetiracetam 1,000 mg 01/31/25 09:00 02/05/25 07:59 Levetiracetam 500 Mg Tablet PO 01/31/26 08:59 1,000 mg BID AL Administration Levothyroxine Sodium 50 mcg 01/31/25 06:30 02/05/25 04:16 Levothyroxine 50 Mcg Tablet PO 01/31/26 06:29 50 mcg DAILY.0630 AL Administration Lisinopril 20 mg 01/31/25 09:00 02/05/25 07:59 Lisinopril 20 Mg Tablet PO 01/31/26 08:59 20 mg DAILY AL Administration Metoprolol Succinate 50 mg 01/31/25 09:00 02/05/25 07:59 Metoprolol Succinate 50 Mg Tab.Er.24h PO 01/31/26 08:59 50 mg DAILY AL Administration Pantoprazole Sodium 40 mg 01/31/25 18:00 02/04/25 18:41 Pantoprazole 40 Mg Tablet.Dr PO 01/31/26 17:59 40 mg DAILY.PC.SUPPER AL Administration Quetiapine Fumarate 25 mg 01/31/25 22:00 02/04/25 21:21 Quetiapine Fumarate 25 Mg Tablet PO 01/31/26 21:59 25 mg QHS AL Administration Sennosides 17.2 mg 01/31/25 12:00 Sennosides 8.6 Mg Tablet PO 01/31/26 11:59 DAILY@12 PRN If no BM in 2 days Sodium Chloride 0 ml 01/31/25 09:00 02/05/25 08:00 Sodium Chloride 0.9 % 10 Ml Syringe IV-PUSH 01/31/26 08:59 10 ml BID AL Administration Assessment/Plan Assessment/Plan (1) Nontraumatic brain injury: Plan: PT to improve pt's strength, endurance, bed mobility, transfers (sit-stand), standing balance, gaitquality on level surfaces and stairs, coordination and functional ADL skills. Will also work to improve pt's safety awareness during transfers and ambulation. OT for basic ADL re-training (bathing, dressing, toileting, continence, grooming, feeding, transferring), to increase activity tolerance and functional mobility and to evaluate for adaptive and assistive devices. Will work to improve pt's endurance and educate pt on fall prevention and energy conser vationtechniques-pacing strategies and proper breathing techniques during functional tasks. CONSTRUCTION OR LEAK GANG LABORER to evaluate and treat patient?s cognition, language and communication skills, assess swallow function. Patient education Pressure ulcer prophylaxis; encourage mobilization, frequent postural changes, pressure-relief techniques DVT prophylaxis Encourage deep breathing exercise incentive spirometry. Monitor bladder. Toileting schedule. Continue current bladder management, with scans as needed and CIC if needed. Start bowel care program every day to obtain continence, prevent ileus. Maintain fall precautions Gait and balance retraining Provision of the necessary gait aids and functional adaptive equipment to enhance the patient's a functional faith Encourage deep breathing exercises and incentive spirometry RD evaluation Ensure adequate nutrition and hydration Discharge planning. 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 Traore is a 79 year old male who presents with multifactorial functional decline in the setting of what was initially thought to be acute stroke, but on further evaluation is non-traumatic braindysfunction, broad differential including seizure, autoimmune encephalitis, brain tumor such as glioma. -Improving -Spoke with neurology. 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 Will need an oncology referral although this canbe arranged outpatient. Will also need f/u with neurology -No major concerns. Continue therapy as ordered -Will likely need SNF placement at [place] -I continued to advise against driving at [place] *Please note interaction with visitor in patients room as outlined above Hospitalist to assist with management of comorbid medical conditions Pain control: Limit sedating medications. Bowel and bladder: Pizano noted. Skin: As ordered, turn and position for offloading. Sleep: Optimize sleep / wake to reduce seizure risk DVT prophylaxis: As ordered, anticoagulated with Eliquis Functional status: Impaired, see PT/OT/CONSTRUCTION OR LEAK GANG LABORER. Discharge planning:Home in 1-2 weeks, lives home alone. I spent 46 minutes for services, including xyzm-[id number] encounter with the patient, discussion of the case, plan of care, and exam; and [id number]-ln-[id number] activities, such as reviewing pertinent search engine optimization consultant documentation, recent therapynotes, laboratory and radiology studies, and discussion of case with care team including physician, nursing, wrapper caser, and therapists. More than 50 % of time was spent on patient/family counseling or coordination ofcare. hollis and I formulated the plan of care and facilitated the medical decision making. Documented By: Oren Lara MD 1342 Signed By: 02/05/25 2145 [facility]03-10-2025 Progress note Author Oren Lara [facility] Note Date/Time February 04, 2025 9:0 2pm [facility] [address] [place] [address] Physiatry(Rehab) Progress Note Signed Patient: Bailee Traore MR#: [id number] : 1945 Acct:[id number] Age/Sex: 79 / M Adm Date: 5 Loc: Room: 6K0985-1 Type: ADM IN Attending Dr: Omkar Louie MD Copies to: ~ Date of Service: 02/04/2025 Subjective Subjective Narrative: Mr. Traore is a 79 year old male who presents with multifactorial functional decline in the setting of what was initially thought to be acute stroke, but on further evaluation is non-traumatic brain dysfunction, broad differential including seizure, autoimmune encephalitis, brain tumor such as glioma. Per chart review, the patient was found down at home. Upon presentation to the hospital, NIH score was 10. 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 Did not receive thrombolytic therapy due to unknown timeline. Was also noted to be in afib with RVR on presentation and was given 5 mg IV Lopressor with conversion back to NSR. He also was noted to have a focal seizure. Has since been started on Keppra and PRN Ativan. Ongoing workup per neurology as noted. Possibly pending lumbar puncture which would require Eliquis to be on hold. Defer to them for timing of that. Interval history: Patient was seen and evaluated today. Sitting up in WC. He appears in no distress. He denies major concerns currently. Tolerating therapy. He expresses to me how he does not have much memory regarding the event which brought [facility]. I did meet with neurology today as well. Dr. 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 The patient will need neurology follow up outpatientas well as oncology appointment arranged at [place]. Review of Systems Review of Systems All other systems reviewed & are negative unless noted below or in HPI Exam Physical Exam Vital Signs: Temp Pulse Resp BP Pulse Ox O2 Del Method 97.9 F 61 14 114/69 96 Room Air 02/04/25 16:00 02/04/25 16:00 02/04/25 16:00 02/04/25 16:00 02/04/25 16:00 02/04/25 16:00 Narrative: Pleasant No acute distress Alert and oriented x 3 but delayed processing and mild confusion noted Generalized weakness Ataxic Objective Labs 02/03/25 04:57 02/02/25 04:55 Labs: Laboratory Results - last 24 hr 02/03/25 12:55 CSF Cryptococcus Ag Titr N/A Fungal Culture Status N/A Fungal Culture Final N/A Medications and Allergies Allergies and Active Meds: Allergies No Known Allergies Allergy (Verified 01/26/25 07:34) Active Medications Generic Name Dose Route Start Last Admin Trade Name Freq PRN Reason Stop Dose Admin Acetaminophen 500 mg 01/30/25 21:03 02/03/25 21:12 Acetaminophen 500 Mg Tablet PO 01/30/26 21:02 500 mg Q4H PRN Administration Pain Al Hydrox/Mg Hydrox/Simethicone 30 ml 01/30/25 21:03 Mag Hydrox/Al Hydrox/Simeth 30 Ml Udc PO 01/30/26 21:02 Q4H PRN Indigestion Apixaban 5 mg 01/31/25 09:00 02/04/25 08:14 Apixaban 5 Mg Tablet PO 01/31/26 08:59 5 mg BID AL Administration Aspirin 81 mg 02/04/25 09:00 02/04/25 08:14 Aspirin 81 Mg Tablet.Dr PO 02/04/26 08:59 81 mg DAILY AL Administration Atorvastatin Calcium 80 mg 01/31/25 21:00 02/03/25 21:11 Atorvastatin 80 Mg Tablet PO 01/31/26 20:59 80 mg QPM AL Administration Bisacodyl 10 mg 01/30/25 21:03 Bisacodyl 10 Mg Supp.Rect MD 01/30/26 21:02 DAILY PRN Constipation Docusate Sodium 100 mg 01/30/25 21:03 Docusate 100 Mg Capsule PO 01/30/26 21:02 BID PRN Constipation Docusate Sodium 283 mg 01/30/25 21:03 Docusate Enema 283 Mg/5 Ml Enema MD 01/30/26 21:02 DAILY PRN Constipation Lactulose 30 gm 01/30/25 21:03 Lactulose 20 Gm/30 Ml Udc PO 01/30/26 21:02 DAILY PRN Constipation Levetiracetam 1,000 mg 01/31/25 09:00 02/04/25 08:14 Levetiracetam 500 Mg Tablet PO 01/31/26 08:59 1,000 mg BID AL Administration Levothyroxine Sodium 50 mcg 01/31/25 06:30 02/04/25 06:04 Levothyroxine 50 Mcg Tablet PO 01/31/26 06:29 Not Given DAILY.0630 AL Lisinopril 20 mg 01/31/25 09:00 02/04/25 08:14 Lisinopril 20 Mg Tablet PO 01/31/26 08:59 20 mg DAILY AL Administration Metoprolol Succinate 50 mg 01/31/25 09:00 02/04/25 08:14 Metoprolol Succinate 50 Mg Tab.Er.24h PO 01/31/26 08:59 50 mg DAILY AL Administration Pantoprazole Sodium 40 mg 01/31/25 18:00 02/04/25 18:41 Pantoprazole 40 Mg Tablet.Dr PO 01/31/26 17:59 40 mg DAILY.PC.SUPPER AL Administration Quetiapine Fumarate 25 mg 01/31/25 22:00 02/03/25 21:11 Quetiapine Fumarate 25 Mg Tablet PO 01/31/26 21:59 25 mg QHS AL Administration Sennosides 17.2 mg 01/31/25 12:00 Sennosides 8.6 Mg Tablet PO 01/31/26 11:59 DAILY@12 PRN If no BM in 2 days Sodium Chloride 0 ml 01/31/25 09:00 02/04/25 08:22 Sodium Chloride 0.9 % 10 Ml Syringe IV-PUSH 01/31/26 08:59 10 ml BID AL Administration Assessment/Plan Assessment/Plan (1) Nontraumatic brain injury: Plan: PT to improve pt's strength, endurance, bed mobility, transfers (sit-stand), standing balance, gait quality on level surfaces and stairs, coordination and functional ADL skills. Will also work to improve pt's safety awareness during transfers and ambulation. OT for basic ADL re-training (bathing, dressing, toileting, continence, grooming, feeding, transferring), to increase activity tolerance and functional mobility and to evaluate for adaptive and assistive devices. Will work to improve pt's endurance and educate pt on fall prevention and energy conservationtechniques-pacing strategies and proper breathing techniques during functional tasks. CONSTRUCTION OR LEAK GANG LABORER to evaluate and treat patient?s cognition, language and communication skills, assess swallow function. Patient education Pressure ulcer prophylaxis; encourage mobilization, frequent postural changes, pressure-relief techniques DVT prophylaxis Encourage deep breathing exercise incentive spirometry. Monitor bladder. Toileting schedule. Continue current bladder management, with scans as needed and CIC if needed. Start bowel care program every day to obtain continence, prevent ileus. Maintain fall precautions Gait and balance retraining Provision of the necessary gait aids and functional adaptive equipment to enhance the patient's a functional faith Encourage deep breathing exercises and incentive spirometry RD evaluation Ensure adequate nutrition and hydration Discharge planning. 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 Traore is a 79 year old male who presents with multifactorial functional decline in the setting of what was initially thought to be acute stroke, but on further evaluation is non-traumatic brain dysfunction, broad differential including seizure, autoimmune encephalitis, brain tumor such as glioma. -Improving -Spoke with neurology. 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 Will need an oncology referral although this can be arranged outpatient. Will also need f/u with neurology -No major concerns. Continue therapy as ordered Hospitalist to assist with management of comorbid medical conditions Pain control: Limit sedating medications. Bowel and bladder: Pizano noted. Skin: As ordered, turn and position for offloading. Sleep: Optimize sleep / wake to reduce seizure risk DVT prophylaxis: As ordered, anticoagulated with Eliquis Functional status: Impaired, see PT/OT/CONSTRUCTION OR LEAK GANG LABORER. Discharge planning:Home in 1-2 weeks, lives home alone. I spent 26 minutes for services, including [id number] encounter with the patient, discussion of the case, plan of care, and exam; and ruzhjbl-xd-[id number] activities, such as reviewing pertinent search engine optimization consultant documentation, recent therapynotes, laboratory and radiology studies, and discussion of case with care team including physician, nursing, wrapper caser, and therapists. More than 50 % of time was spent on patient/family counseling or coordination ofcare. xam and I formulated the plan of care and facilitated the medical decision making. Documented By: Oren Lara MD 2058 Signed By: <Electronically signed by Oren Lara MD> 02/04/252101 [facility] Work Phone: [phone]) 408-982803-10-2025 [place] [id number] Physiatry(Rehab) Progress Note Signed Patient: Bailee Traore MR#: [id number] : 1945 Acct:[id number] Age/Sex: 79 / M Adm Date: 5 Loc: Room: [address] [place] [address] Type: ADM IN Attending Dr: Omkar Louie MD Copies to: ~ Date of Service: 02/04/2025 Subjective Subjective Narrative: Mr. Traore is a 79 year old male who presents with multifactorial functional decline in the setting of what was initially thought to be acute stroke, but on further evaluation is non-traumatic braindysfunction, broad differential including seizure, autoimmune encephalitis, brain tumor such as glioma. Per chart review, the patient was found down at home. Upon presentation to the hospital, NIH score was 10. 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 Did not receive thrombolytic therapy due to unknown timeline. Was also noted to be in afib with RVR on presentation and was given 5 mg IV Lopressor with conversion back to NSR. He also was noted to have a focal seizure. Has since been started on Keppra and PRN Ativan. Ongoing workup per neurology as noted. Possibly pending lumbar puncture which would require Eliquisto be on hold. Defer to them for timing of that. Interval history: Patient was seen and evaluated today. Sitting up in WC. He appears in no distress. He denies major concerns currently. Tolerating therapy. He expresses to me how he does not have much memory regarding the event which brought him[facility]. I did meet with neurology today as well. Dr. 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 The patient will need neurology follow up outpatientas well as oncology appointment [place]. Review of Systems Review of Systems All other systems reviewed & are negative unless noted below or in HPI Exam Physical Exam Vital Signs: Temp Pulse Resp BP Pulse Ox O2 Del Method 97.9 F 61 14 114/69 96 Room Air 02/04/25 16:00 02/04/25 16:00 02/04/25 16:00 02/04/25 16:00 02/04/25 16:00 02/04/25 16:00 Narrative: Pleasant No acute distress Alert and oriented x 3 but delayed processing and mild confusion noted Generalized weakness Ataxic Objective Labs 02/03/25 04:57 02/02/25 04:55 Labs: Laboratory Results - last 24 hr 02/03/25 12:55 CSF Cryptococcus Ag Titr N/A Fungal Culture Status N/A Fungal Culture Final N/A Medications and Allergies Allergies and Active Meds: Allergies No Known Allergies Allergy (Verified 01/26/25 07:34) Active Medications Generic Name Dose Route Start Last Admin Trade Name Freq PRN Reason Stop Dose Admin Acetaminophen 500 mg 01/30/25 21:03 02/03/25 21:12 Acetaminophen 500 Mg Tablet PO 01/30/26 21:02 500 mg Q4H PRN Administration Pain Al Hydrox/Mg Hydrox/Simethicone 30 ml 01/30/25 21:03 Mag Hydrox/Al Hydrox/Simeth 30 Ml Udc PO 01/30/26 21:02 Q4H PRN Indigestion Apixaban 5 mg 01/31/25 09:00 02/04/25 08:14 Apixaban 5 Mg Tablet PO 01/31/26 08:59 5 mg BID AL Administration Aspirin 81 mg 02/04/25 09:00 02/04/25 08:14 Aspirin 81 Mg Tablet.Dr PO 02/04/26 08:59 81 mg DAILY AL Administration Atorvastatin Calcium 80 mg 01/31/25 21:00 02/03/25 21:11 Atorvastatin 80 Mg Tablet PO 01/31/26 20:59 80 mg QPM AL Administration Bisacodyl 10 mg 01/30/25 21:03 Bisacodyl 10 Mg Supp.Rect MD 01/30/26 21:02 DAILY PRN Constipation Docusate Sodium 100 mg 01/30/25 21:03 Docusate 100 Mg Capsule PO 01/30/26 21:02 BID PRN Constipation Docusate Sodium 283 mg 01/30/25 21:03 Docusate Enema 283 Mg/5 Ml Enema MD 01/30/26 21:02 DAILY PRN Constipation Lactulose 30 gm 01/30/25 21:03 Lactulose 20 Gm/30 Ml Udc PO 01/30/26 21:02 DAILY PRN Constipation Levetiracetam 1,000 mg 01/31/25 09:00 02/04/25 08:14 Levetiracetam 500 Mg Tablet PO 01/31/26 08:59 1,000 mg BID AL Administration Levothyroxine Sodium 50 mcg 01/31/25 06:30 02/04/25 06:04 Levothyroxine 50 Mcg Tablet PO 01/31/26 06:29 Not Given DAILY.0630 AL Lisinopril 20 mg 01/31/25 09:00 02/04/25 08:14 Lisinopril 20 Mg Tablet PO 01/31/26 08:59 20 mg DAILY AL Administration Metoprolol Succinate 50 mg 01/31/25 09:00 02/04/25 08:14 Metoprolol Succinate 50 Mg Tab.Er.24h PO 01/31/26 08:59 50 mg DAILY AL Administration Pantoprazole Sodium 40 mg 01/31/25 18:00 02/04/25 18:41 Pantoprazole 40 Mg Tablet.Dr PO 01/31/26 17:59 40 mg DAILY.PC.SUPPER AL Administration Quetiapine Fumarate 25 mg 01/31/25 22:00 02/03/25 21:11 Quetiapine Fumarate 25 Mg Tablet PO 01/31/26 21:59 25 mg QHS AL Administration Sennosides 17.2 mg 01/31/25 12:00 Sennosides 8.6 Mg Tablet PO 01/31/26 11:59 DAILY@12 PRN If no BM in 2 days Sodium Chloride 0 ml 01/31/25 09:00 02/04/25 08:22 Sodium Chloride 0.9 % 10 Ml Syringe IV-PUSH 01/31/26 08:59 10 ml BID AL Administration Assessment/Plan Assessment/Plan (1) Nontraumatic brain injury: Plan: PT to improve pt's strength, endurance, bed mobility, transfers (sit-stand), standing balance, gaitquality on level surfaces and stairs, coordination and functional ADL skills. Will also work to improve pt's safety awareness during transfers and ambulation. OT for basic ADL re-training (bathing, dressing, toileting, continence, grooming, feeding, transferring), to increase activity tolerance and functional mobility and to evaluate for adaptive and assistive devices. Will work to improve pt's endurance and educate pt on fall prevention and energy conser vationtechniques-pacing strategies and proper breathing techniques during functional tasks. CONSTRUCTION OR LEAK GANG LABORER to evaluate and treat patient?s cognition, language and communication skills, assess swallow function. Patient education Pressure ulcer prophylaxis; encourage mobilization, frequent postural changes, pressure-relief techniques DVT prophylaxis Encourage deep breathing exercise incentive spirometry. Monitor bladder. Toileting schedule. Continue current bladder management, with scans as needed and CIC if needed. Start bowel care program every day to obtain continence, prevent ileus. Maintain fall precautions Gait and balance retraining Provision of the necessary gait aids and functional adaptive equipment to enhance the patient's a functional faith Encourage deep breathing exercises and incentive spirometry RD evaluation Ensure adequate nutrition and hydration Discharge planning. 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 Traore is a 79 year old male who presents with multifactorial functional decline in the setting of what was initially thought to be acute stroke, but on further evaluation is non-traumatic braindysfunction, broad differential including seizure, autoimmune encephalitis, brain tumor such as glioma. -Improving -Spoke with neurology. 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 Will need an oncology referral although this canbe arranged outpatient. Will also need f/u with neurology -No major concerns. Continue therapy as ordered Hospitalist to assist with management of comorbid medical conditions Pain control: Limit sedating medications. Bowel and bladder: Pizano noted. Skin: As ordered, turn and position for offloading. Sleep: Optimize sleep / wake to reduce seizure risk DVT prophylaxis: As ordered, anticoagulated with Eliquis Functional status: Impaired, see PT/OT/CONSTRUCTION OR LEAK GANG LABORER. Discharge planning:Home in 1-2 weeks, lives home alone. I spent 26 minutes for services, including [id number] encounter with the patient, discussion of the case, plan of care, and exam; and [id number] activities, such as reviewing pertinent search engine optimization consultant documentation, recent therapynotes, laboratory and radiology studies, and discussion of case with care team including physician, nursing, wrapper caser, and therapists. More than 50 % of time was spent on patient/family counseling or coordination ofcare. xam and I formulated the plan of care and facilitated the medical decision making. Documented By: Oren Lara MD 2058 Signed By: 02/04/252101 [facility]03-10-2025 Progress note Author Bartolome Amezquita [facility] Note Date/Time February 04, 2025 2:4 4pm [facility] [address] [place] [address] Neurology Progress Note Signed Patient: Bailee Traore MR#: [id number] : 1945 Acct:[id number] Age/Sex: 79 / M Adm Date: 5 Loc: Room: [address] [place] [address] Type: ADM IN Attending Dr: Omkar Louie MD Copies to: ~ Date of Service: 02/04/2025 Exam Physical Exam Vital Signs: Temp Pulse Resp BP Pulse Ox O2 Del Method 97.9 F 59 L 16 100/61 95 Room Air 02/04/25 05:29 02/04/25 05:29 02/04/25 05:29 02/04/25 05:29 02/04/25 05:29 02/04/25 05:29 Objective Vital Signs Vital Signs: Vital Signs - 24 hr 02/03/25 16:00 02/03/25 21:10 02/03/25 21:44 Temperature 97.8 F 97.9 F Pulse Rate 62 63 Respiratory Rate 16 16 Blood Pressure 128/72 100/68 02 Sat by Pulse Oximetry 93 L 96 Oxygen Delivery Method Room Air Room Air Room Air 02/04/25 05:29 Temperature 97.9 F Pulse Rate 59 L Respiratory Rate 16 Blood Pressure 100/61 02 Sat by Pulse Oximetry 95 Oxygen Delivery Method Room Air Labs 02/03/25 04:57 02/02/25 04:55 Therapy Recommendations Therapy Recommendations: ST Recommendations Level of Supervision 1:1 Feeding Supervision Liquid Consistency Thin Liquids Recommendation Solid Consistency Dental Soft Solids Recommendations Meat Consistency Chopped Meats Recommendations Medication Administration Whole Pills,Give Pills in Applesauce Dysphagia Swallow Precautions/ Sitting Upright (90 deg),Double Swallow, Strategies Effortful Swallow,Small Bites/Sips,Alternate Liquids/Solids,Pacing/Slow-Rate,Sit Upright 30 Minutes Referral Recommendations Modified Barium Swallow ST Recommended Services at Speech Therapy Discharge Assessment/Plan (1) Seizure: Assessment/Problem Details: SUBJECTIVE: No positional headaches after the lumbar puncture yesterday. No significant lowback tenderness where the procedure was performed. He seems to be largely without complaints today. He said he was a little dizzy earlier when he was up with therapy. EXAMINATION: Afebrile. In no distress. No deformities or trauma. Limbs seem well-perfused. No significant edema. Normal work of breathing. Visualized skin is generally intact and without lesions aside from age-related findings. Affect normal. He is alert. Attention seems okay. Responses are a bit slow but significantly better than they were. Speech is fluent and nondysarthric. Pupils are equal. Ocular motility is full. Visual schaeffer are full to finger counting. No nystagmus. Facial sensation is normal. Hearing is normal. Facial strength is normal. Tongue is midline. Muscle bulk, tone, and strength are normal. No tremors. No myoclonus. Light touch is intact. DATA REVIEW: -CT head shows hypodensity in the right parietotemporal region -CTA head and neck fairly unremarkable, the right M1 and M2 segments look okay but there might be some distal occlusions in the M3 segments -Routine EEG done on January 27, 2025 was with frequent right parietal sharp waves -MRI brain with and without contrast January 28, 2025 shows cortical-based diffusion restriction in the right parietal and occipital lobe and maybe the left parietal lobe. There is right temporal lobe signal abnormality worrisome for low-grade glioma. Also consider cerebritis/encephalitis. There is a left parasagittal frontal focus of T2 hyperintensity also concerning for low-grade glioma. -CT of chest, abdomen, and pelvis do not show any signs concerning for malignantdisease/source -CSF from February 04, 2025: Total nucleated cells 1. Protein 101. PCR negative. Fungal smear negative. ASSESSMENT: 79-year-old man brought in January 26, 2025 after being found down at home. CT head showed hypodensity in the right parietotemporal area initially concerning for stroke. He had a focal motor seizure involving the left upper extremity waswitnessed in the emergency department. There is cortical-based diffusion restriction overlying the right temporoparietal lobe(s) that I think reflects recent seizure activity - I do notbelieve this was an acute cerebrovascular event. The M1 and M2 segments of the right MCA are fine, and there is questionable paucity of branches of M3 segmentsbut that might just be related to the lesion. He has T2/FLAIR hyperintensity of the white matter looking consistent with vasogenic edematous changes in the right temporal lobe and right parietal lobe and also in the left parasagittal frontal lobe. 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 There does not seem to be any associated tissue enhancement. CSFfindings suggest against infectious/inflammatory process. His routine EEG shows frequent right parietal sharp waves and he looks to still be at risk for seizure activity. PLAN: 1. Continue the levetiracetam at 1000 mg twice daily. 2. CSF results pending: Cytology, culture, cryptococcus antigen 3. Apixaban and aspirin were resumed after the lumbar puncture 4. Serum autoimmune encephalitis profile is pending 5. I think he will need a follow-up MRI brain with and without contrast but notfor at least another few weeks. I suspect the cortical diffusion restriction changes will have resolved. And we could then get a sense for if there is worsening/expansion of the T2/FLAIR hyperintensities. 6. He needs outpatient neurology follow-up and an eventual oncology consultation as well 7. We discussed driving restrictions today. He is not to be driving until eventually released by an outpatient neurologist. Plan: (2) Cerebritis: Plan: Plan Documented By: Bartolome Amezquita DO 02/04/25 1438 Signed By: <Electronically signed by Bartolome Amezquita DO> 02/04/25 7599 [facility] Work Phone: 1(214) 713-269303-10-2025 [place] [id number] Neurology Progress Note Signed Patient: Bailee Traore MR#: [id number] : 1945 Acct:[id number] Age/Sex: 79 / M Adm Date: 5 Loc: Room: 3L5822-8 Type: ADM IN Attending Dr: Omkar Louie MD Copies to: ~ Date of Service: 02/04/2025 Exam Physical Exam Vital Signs: Temp Pulse Resp BP Pulse Ox O2 Del Method 97.9 F 59 L 16 100/61 95 Room Air 02/04/25 05:29 02/04/25 05:29 02/04/25 05:29 02/04/25 05:29 02/04/25 05:29 02/04/25 05:29 Objective Vital Signs Vital Signs: Vital Signs - 24 hr 02/03/25 16:00 02/03/25 21:10 02/03/25 21:44 Temperature 97.8 F 97.9 F Pulse Rate 62 63 Respiratory Rate 16 16 Blood Pressure 128/72 100/68 02 Sat by Pulse Oximetry 93 L 96 Oxygen Delivery Method Room Air Room Air Room Air 02/04/25 05:29 Temperature 97.9 F Pulse Rate 59 L Respiratory Rate 16 Blood Pressure 100/61 02 Sat by Pulse Oximetry 95 Oxygen Delivery Method Room Air Labs 02/03/25 04:57 02/02/25 04:55 Therapy Recommendations Therapy Recommendations: ST Recommendations Level of Supervision 1:1 Feeding Supervision Liquid Consistency Thin Liquids Recommendation Solid Consistency Dental Soft Solids Recommendations Meat Consistency Chopped Meats Recommendations Medication Administration Whole Pills,Give Pills in Applesauce Dysphagia Swallow Precautions/ Sitting Upright (90 deg),Double Swallow, Strategies Effortful Swallow,Small Bites/Sips,Alternate Liquids/Solids,Pacing/Slow-Rate,Sit Upright 30 Minutes Referral Recommendations Modified Barium Swallow ST Recommended Services at Speech Therapy Discharge Assessment/Plan (1) Seizure: Assessment/Problem Details: SUBJECTIVE: No positional headaches after the lumbar puncture yesterday. No significant lowback tenderness where the procedure was performed. He seems to be largely without complaints today. He said he was a little dizzy earlier when he was up with therapy. EXAMINATION: Afebrile. In no distress. No deformities or trauma. Limbs seem well-perfused. No significant edema.Normal work of breathing. Visualized skin is generally intact and without lesions aside from age-related findings. Affect normal. He is alert. Attention seems okay. Responses are a bit slow but significantly better than they were. Speech is fluent and nondysarthric. Pupils are equal. Ocular motility is full. Visual schaeffer are full to finger counting. No nystagmus. Facial sensation is normal. Hearing is normal. Facial strength is normal. Tongue is midline. Muscle bulk, tone, and strength are normal. No tremors. No myoclonus. Light touch is intact. DATA REVIEW: -CT head shows hypodensity in the right parietotemporal region -CTA head and neck fairly unremarkable, the right M1 and M2 segments look okay but there might be some distal occlusions in the M3 segments -Routine EEG done on January 27, 2025 was with frequent right parietal sharp waves -MRI brain with and without contrast January 28, 2025 shows cortical-based diffusion restriction in the right parietal and occipital lobe and maybe the left parietal lobe. There is right temporal lobe signal abnormality worrisome for low-grade glioma. Also consider cerebritis/encephalitis. There is a left parasagittal frontal focus of T2 hyperintensity also concerning for low-grade glioma. -CT of chest, abdomen, and pelvis do not show any signs concerning for malignantdisease/source -CSF from February 04, 2025: Total nucleated cells 1. Protein 101. PCR negative. Fungal smear negative. ASSESSMENT: 79-year-old man brought in January 26, 2025 after being found down at home. CT head showed hypodensityin the right parietotemporal area initially concerning for stroke. He had a focal motor seizure involving the left upper extremity waswitnessed in the emergency department. There is cortical-based diffusion restriction overlying the right temporoparietal lobe(s) that I think reflects recent seizure activity - I do notbelieve this was an acute cerebrovascular event. The M1 and M2 segments of the right MCA are fine, and there is questionable paucity of branches of M3 seg mentsbut that might just be related to the lesion. He has T2/FLAIR hyperintensity of the white matter looking consistent with vasogenic edematous changes in the right temporal lobe and right parietal lobe and also in the left parasagittal frontal lobe. 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 There does not seem to be any associated tissue enhancement. CSFfindings suggest against infectious/inflammatory process. His routine EEG shows frequent right parietal sharp waves and he looks to still be at risk for seizure activity. PLAN: 1. Continue the levetiracetam at 1000 mg twice daily. 2. CSF results pending: Cytology, culture, cryptococcus antigen 3. Apixaban and aspirin were resumed after the lumbar puncture 4. Serum autoimmune encephalitis profile is pending 5. I think he will need a follow-up MRI brain with and without contrast but notfor at least anotherfew weeks. I suspect the cortical diffusion restriction changes will have resolved. And we could then get a sense for if there is worsening/expansion of the T2/FLAIR hyperintensities. 6. He needs outpatient neurology follow-up and an eventual oncology consultation as well 7. We discussed driving restrictions today. He is not to be driving until eventually released by anoutpatient neurologist. Plan: (2) Cerebritis: Plan: Plan Documented By: Bartolome Amezquita DO 02/04/258 Signed By: 02/04/25 1444 [facility]03-09-2025 Progress note Author Bartolome Amezquita [facility] Note Date/Time February 03, 2025 1:14 pm [facility] [address] [place] [address] Neurology Progress Note Signed Patient: Bailee Traore MR#: [id number] : 1945 Acct:[id number] Age/Sex: 79 / M Adm Date: 5 Loc: Room: 8Y4720-1 Type: ADM IN Attending Dr: Omkar Louie MD Copies to: ~ Date of Service: 02/03/2025 Exam Physical Exam Vital Signs: Temp Pulse Resp BP Pulse Ox O2 Del Method 97.9 F 61 16 148/81 H 93 L Room Air 02/03/25 05:00 02/03/25 05:00 02/03/25 05:00 02/03/25 05:00 02/03/25 05:00 02/03/25 07:30 Objective Vital Signs Vital Signs: Vital Signs - 24 hr 02/02/25 16:00 02/02/25 19:56 02/02/25 23:30 Temperature 97.5 F L 97.7 F Pulse Rate 91 60 Respiratory Rate 16 16 Blood Pressure 132/89 125/69 02 Sat by Pulse Oximetry 97 96 Oxygen Delivery Method Room Air Room Air Room Air 02/03/25 05:00 02/03/25 07:30 Temperature 97.9 F Pulse Rate 61 Respiratory Rate 16 Blood Pressure 148/81 H 02 Sat by Pulse Oximetry 93 L Oxygen Delivery Method Room Air Room Air Labs 02/03/25 04:57 02/02/25 04:55 Therapy Recommendations Therapy Recommendations: ST Recommendations Level of Supervision 1:1 Feeding Supervision Liquid Consistency Thin Liquids Recommendation Solid Consistency Pureed Solids Recommendations Meat Consistency Pureed Meats,Extra Bowl of Gravy Recommendations Medication Administration Whole Pills,Give Pills in Applesauce Dysphagia Swallow Precautions/ Sitting Upright (90 deg),Double Swallow, Strategies Effortful Swallow,Small Bites/Sips,Alternate Liquids/Solids,Pacing/Slow-Rate,Sit Upright 30 Minutes Referral Recommendations Modified Barium Swallow ST Recommended Services at Speech Therapy Discharge Assessment/Plan (1) Seizure: Assessment/Problem Details: SUBJECTIVE: Lumbar puncture performed around 12:45 PM today in his room. He tolerated it very well. No headache today. No visual complaints. No issues with his limbs. EXAMINATION: Afebrile. In no distress. No deformities or trauma. Limbs seem well-perfused. No significant edema. Normal work of breathing. Visualized skin is generally intact and without lesions aside from age-related findings. Affect normal. He is alert. Attention seems okay. Responses are a bit slow but significantly better than they were. Speech is fluent and nondysarthric. Pupils are equal. Ocular motility is full. Visual schaeffer are full to finger counting. No nystagmus. Facial sensation is normal. Hearing is normal. Facial strength is normal. Tongue is midline. Muscle bulk, tone, and strength are normal. No tremors. No myoclonus. Light touch is intact. DATA REVIEW: -CT head shows hypodensity in the right parietotemporal region -CTA head and neck fairly unremarkable, the right M1 and M2 segments look okay but there might be some distal occlusions in the M3 segments -Routine EEG done on January 27, 2025 was with frequent right parietal sharp waves -MRI brain with and without contrast January 28, 2025 shows cortical-based diffusion restriction in the right parietal and occipital lobe and maybe the left parietal lobe. There is right temporal lobe signal abnormality worrisome for low-grade glioma. Also consider cerebritis/encephalitis. There is a left parasagittal frontal focus of T2 hyperintensity also concerning for low-grade glioma. -CT of chest, abdomen, and pelvis do not show any signs concerning for malignantdisease/source ASSESSMENT: 79-year-old man brought in January 26, 2025 after being found down at home. CT head showed hypodensity in the right parietotemporal area initially concerning for stroke. He had a focal motor seizure involving the left upper extremity waswitnessed in the emergency department. There is cortical-based diffusion restriction overlying the right temporoparietal lobe(s) that I think reflects recent seizure activity. I do not believe this was a cerebrovascular event. The M1 and M2 segments of the right MCA are fine, and there is questionable paucity of branches of M3 segments but that might just be related to the lesion. He has T2/FLAIR hyperintensity of the white matter looking consistent with vasogenic edematous changes in the right temporal lobe and right parietal lobe and also in the left parasagittal frontal lobe. 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 No obvious enhancement. He has beenafebrile and generally without headache. His routine EEG shows frequent right parietal sharp waves and he looks to still be at risk for seizure activity. PLAN: 1. Continue the levetiracetam at 1000 mg twice daily. 2. CSF results pending: Cell counts, protein, glucose, cytology, PCR, culture, fungal smear, cryptococcus antigen. 3. Apixaban can be resumed with his evening dose today 4. Aspirin 81 mg reordered starting tomorrow morning 5. Serum autoimmune encephalitis profile is pending Plan: (2) Cerebritis: Plan: Plan Documented By: Bartolome Amezquita DO 02/03/25 1311 Signed By: <Electronically signed by Bartolome Amezquita DO> 02/03/25 1314 [facility] Work Phone: 1(500) 550-351003-09-2025 [place] [address] Neurology Progress Note Signed Patient: Bailee Traore MR#: [id number] : 1945 Acct:[id number] Age/Sex: 79 / M Adm Date: 5 Loc: Room: 2L9623-6 Type: ADM IN Attending Dr: Omkar Louie MD Copies to: ~ Date of Service: 02/03/2025 Exam Physical Exam Vital Signs: Temp Pulse Resp BP Pulse Ox O2 Del Method 97.9 F 61 16 148/81 H 93 L Room Air 02/03/25 05:00 02/03/25 05:00 02/03/25 05:00 02/03/25 05:00 02/03/25 05:00 02/03/25 07:30 Objective Vital Signs Vital Signs: Vital Signs - 24 hr 02/02/25 16:00 02/02/25 19:56 02/02/25 23:30 Temperature 97.5 F L 97.7 F Pulse Rate 91 60 Respiratory Rate 16 16 Blood Pressure 132/89 125/69 02 Sat by Pulse Oximetry 97 96 Oxygen Delivery Method Room Air Room Air Room Air 02/03/25 05:00 02/03/25 07:30 Temperature 97.9 F Pulse Rate 61 Respiratory Rate 16 Blood Pressure 148/81 H 02 Sat by Pulse Oximetry 93 L Oxygen Delivery Method Room Air Room Air Labs 02/03/25 04:57 02/02/25 04:55 Therapy Recommendations Therapy Recommendations: ST Recommendations Level of Supervision 1:1 Feeding Supervision Liquid Consistency Thin Liquids Recommendation Solid Consistency Pureed Solids Recommendations Meat Consistency Pureed Meats,Extra Bowl of Gravy Recommendations Medication Administration Whole Pills,Give Pills in Applesauce Dysphagia Swallow Precautions/ Sitting Upright (90 deg),Double Swallow, Strategies Effortful Swallow,Small Bites/Sips,Alternate Liquids/Solids,Pacing/Slow-Rate,Sit Upright 30 Minutes Referral Recommendations Modified Barium Swallow ST Recommended Services at Speech Therapy Discharge Assessment/Plan (1) Seizure: Assessment/Problem Details: SUBJECTIVE: Lumbar puncture performed around 12:45 PM today in his room. He tolerated it very well. No headachetoday. No visual complaints. No issues with his limbs. EXAMINATION: Afebrile. In no distress. No deformities or trauma. Limbs seem well-perfused. No significant edema.Normal work of breathing. Visualized skin is generally intact and without lesions aside from age-related findings. Affect normal. He is alert. Attention seems okay. Responses are a bit slow but significantly better than they were. Speech is fluent and nondysarthric. Pupils are equal. Ocular motility is full. Visual schaeffer are full to finger counting. No nystagmus. Facial sensation is normal. Hearing is normal. Facial strength is normal. Tongue is midline. Muscle bulk, tone, and strength are normal. No tremors. No myoclonus. Light touch is intact. DATA REVIEW: -CT head shows hypodensity in the right parietotemporal region -CTA head and neck fairly unremarkable, the right M1 and M2 segments look okay but there might be some distal occlusions in the M3 segments -Routine EEG done on January 27, 2025 was with frequent right parietal sharp waves -MRI brain with and without contrast January 28, 2025 shows cortical-based diffusion restriction in the right parietal and occipital lobe and maybe the left parietal lobe. There is right temporal lobe signal abnormality worrisome for low-grade glioma. Also consider cerebritis/encephalitis. There is a left parasagittal frontal focus of T2 hyperintensity also concerning for low-grade glioma. -CT of chest, abdomen, and pelvis do not show any signs concerning for malignantdisease/source ASSESSMENT: 79-year-old man brought in January 26, 2025 after being found down at home. CT head showed hypodensityin the right parietotemporal area initially concerning for stroke. He had a focal motor seizure involving the left upper extremity waswitnessed in the emergency department. There is cortical-based diffusion restriction overlying the right temporoparietal lobe(s) that I think reflects recent seizure activity. I do not believe this was a cerebrovascular event. The M1 and M2 segments of the right MCA are fine, and there is questionable paucity of branches of M3 segments but that might just be related to the lesion. He has T2/FLAIR hyperintensity of the white matter looking consistent with vasogenic edematous changes in the right temporal lobe and right parietal lobe and also in the left parasagittal frontal lobe. 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 No obvious enhancement. He has beenafebrile and generally without headache. His routine EEG shows frequent right parietal sharp waves and he looks to still be at risk for seizure activity. PLAN: 1. Continue the levetiracetam at 1000 mg twice daily. 2. CSF results pending: Cell counts, protein, glucose, cytology, PCR, culture, fungal smear, cryptococcus antigen. 3. Apixaban can be resumed with his evening dose today 4. Aspirin 81 mg reordered starting tomorrow morning 5. Serum autoimmune encephalitis profile is pending Plan: (2) Cerebritis: Plan: Plan Documented By: Bartolome Amezquita DO 02/03/25 1311 Signed By: 02/03/25 1314 [facility]03-09-[address] [address] Neurology Procedure Note Signed Patient: Bailee Traore MR#: [id number] : 1945 Acct:[id number] Age/Sex: 79 / M Adm Date: 5 Loc: 5T Room: [address] [place] [address] Type: ADM IN Attending Dr: Omkar Louie MD Copies to: DO Omkar Garcia MD Kelly Ramey, DO~ Neurology Procedures Date/Provider Date: 02/03/2025 Bartolome Amezquita DO Lumbar Puncture Narrative: INDICATION: Intracranial imaging abnormalities, encephalitis versus low-grade neoplasm. PRECAUTIONS: To assess for any propensity for procedural bleeding, platelets, PT, and APTT were checked prior tothe procedure. Medications were reviewed. His apixaban had been held for 2 days. His aspirin has been held for 5 days. To mitigate infectious risk, skin was prepped using a chlorhexidine solution, was sterilely draped, and sterile procedure was used throughout. The patient had intracranialimaging performed prior to the procedure that demonstrates a lack of cerebellar tonsillar protrusion or sagging of the contents of the posterior fossa. CONSENT: The details of the procedure were described. Risks and benefits were discussed at length. Specifically, the benefit is that this is a potentially diagnostic procedure. Specific risks that were discussed were: Infectious risk, intra- andextracorporeal bleeding, herniation of the intracranial contents, spinal headache, and spinal cord trauma. Patient expressed understanding and opted to proceed. TECHNIQUE: Patient was placed in the left lateral decubitus position. 1.5 mL of 1% lidocaine was used to numb the subcutaneous tissues at the desired spinal level. A 3-1/2 inch 20-gauge spinal needle was inserted at the L3-4 level. The intrathecal space was accessed on the first pass. CSF was collected. The needle was then withdrawn. Patient tolerated the procedure well. No complications. OPENING PRESSURE: Not obtained Volume COLLECTED: 11 ml of clear cerebrospinal fluid sequentially filling 4 tubes Documented By: Bartolome Amezquita DO 02/03/251309 Signed By: 02/03/25 1311 [facility]03-07-2025 Progress note Author Bartolome Amezquita [facility] Note Date/Time February 01, 2025 4:25 pm [facility] [address] [place] [address] Neurology Progress Note Signed Patient: Bailee Traore MR#: [id number] : 1945 Acct:[id number] Age/Sex: 79 / M Adm Date: Loc: Room: 6F6424-4 Type: ADM IN Attending Dr: Omkar Louie MD Copies to: ~ Date of Service: 02/01/2025 Exam Physical Exam Vital Signs: Temp Pulse Resp BP Pulse Ox O2 Del Method 96.6 F L 81 18 94/64 L 99 Room Air 02/01/25 14:44 02/01/25 14:44 02/01/25 14:44 02/01/25 14:44 02/01/25 14:44 02/01/25 14:44 Objective Vital Signs Vital Signs: Vital Signs - 24 hr 01/31/25 21:30 02/01/25 05:00 02/01/25 10:10 Temperature 97.5 F L 97.4 F L Pulse Rate 72 80 Respiratory Rate 17 14 Blood Pressure 142/80 H 97/60 L 02 Sat by Pulse Oximetry 98 96 Oxygen Delivery Method Room Air Room Air Room Air 02/01/25 10:11 02/01/25 14:44 Temperature 96.6 F L Pulse Rate 81 Respiratory Rate 18 Blood Pressure 94/64 L 02 Sat by Pulse Oximetry 99 Oxygen Delivery Method Room Air Room Air Labs 01/31/25 04:52 02/01/25 10:06 Therapy Recommendations Therapy Recommendations: ST Recommendations Level of Supervision 1:1 Feeding Supervision Liquid Consistency Thin Liquids Recommendation Solid Consistency Pureed Solids Recommendations Meat Consistency Pureed Meats,Extra Bowl of Gravy Recommendations Medication Administration Whole Pills,Give Pills in Applesauce Dysphagia Swallow Precautions/ Sitting Upright (90 deg),Double Swallow, Strategies Effortful Swallow,Small Bites/Sips,Alternate Liquids/Solids,Pacing/Slow-Rate,Sit Upright 30 Minutes Referral Recommendations Modified Barium Swallow ST Recommended Services at Speech Therapy Discharge Assessment/Plan (1) Seizure: Assessment/Problem Details: SUBJECTIVE: No overnight events. No new complaints today. He denies headache. His left arm is feeling fine. He has multiple family members that are present so we camearound to talk to them and update them. EXAMINATION: Afebrile. In no distress. No deformities or trauma. Limbs seem well-perfused. No significant edema. Normal work of breathing. Visualized skin is generally intact and without lesions aside from age-related findings. Affect normal. He is alert. Attention seems okay. Responses are a bit slow but significantly better than they were. Speech is fluent and nondysarthric. Pupils are equal. Ocular motility is full. Visual schaeffer are full to finger counting. No nystagmus. Facial sensation is normal. Hearing is normal. Facial strength is normal. Tongue is midline. Muscle bulk, tone, and strength are normal. No tremors. No myoclonus. Light touch is intact. DATA REVIEW: -CT head shows hypodensity in the right parietotemporal region -CTA head and neck fairly unremarkable, the right M1 and M2 segments look okay but there might be some distal occlusions in the M3 segments -Routine EEG done on January 27, 2025 was with frequent right parietal sharp waves -MRI brain with and without contrast January 28, 2025 shows cortical-based diffusion restriction in the right parietal and occipital lobe and maybe the left parietal lobe. There is right temporal lobe signal abnormality worrisome for low-grade glioma. Also consider cerebritis/encephalitis. There is a left parasagittal frontal focus of T2 hyperintensity also concerning for low-grade glioma. -CT of chest, abdomen, and pelvis do not show any signs concerning for malignantdisease/source ASSESSMENT: 79-year-old man brought in January 26, 2025 after being found down at home. CT head showed hypodensity in the right parietotemporal area initially concerning for stroke. He had a focal motor seizure involving the left upper extremity waswitnessed in the emergency department. There is cortical-based diffusion restriction overlying the right temporoparietal lobe(s) that I think reflects recent seizure activity. I do not believe this was a cerebrovascular event. The M1 and M2 segments of the right MCA are fine, and there is questionable paucity of branches of M3 segments but that might just be related to the lesion. He has T2/FLAIR hyperintensity of the white matter looking consistent with vasogenic edematous changes in the right temporal lobe and right parietal lobe and also in the left parasagittal frontal lobe. 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 No obvious enhancement. He has beenafebrile and generally without headache. His routine EEG shows frequent right parietal sharp waves and he looks to still be at risk for seizure activity. PLAN: 1. Continue the levetiracetam at 1000 mg twice daily. 2. He will need a lumbar puncture, tentatively Tuesday. He has chronically beenon aspirin 81 mg daily and has been placed on apixaban 5 mg twice daily for new onset atrial fibrillation. Last dose of aspirin was January 29, 2025. I put a hold on his apixaban for noon on Tuesday. 3. Serum autoimmune encephalitis profile is pending Plan: (2) Cerebritis: Plan: Plan Documented By: Bartolome Amezquita DO 02/01/251723 Signed By: <Electronically signed by Bartolome Amezquita DO> 02/01/251724 [facility] Work Phone: 1(782) 248-485703-07-2025 [place] [address] Neurology Progress Note Signed Patient: Bailee Traore MR#: [id number] : 1945 Acct:[id number] Age/Sex: 79 / M Adm Date: 5 Loc: Room: [address] [place] [address] Type: ADM IN Attending Dr: Omkar Louie MD Copies to: ~ Date of Service: 02/01/2025 Exam Physical Exam Vital Signs: Temp Pulse Resp BP Pulse Ox O2 Del Method 96.6 F L 81 18 94/64 L 99 Room Air 02/01/25 14:44 02/01/25 14:44 02/01/25 14:44 02/01/25 14:44 02/01/25 14:44 02/01/25 14:44 Objective Vital Signs Vital Signs: Vital Signs - 24 hr 01/31/25 21:30 02/01/25 05:00 02/01/25 10:10 Temperature 97.5 F L 97.4 F L Pulse Rate 72 80 Respiratory Rate 17 14 Blood Pressure 142/80 H 97/60 L 02 Sat by Pulse Oximetry 98 96 Oxygen Delivery Method Room Air Room Air Room Air 02/01/25 10:11 02/01/25 14:44 Temperature 96.6 F L Pulse Rate 81 Respiratory Rate 18 Blood Pressure 94/64 L 02 Sat by Pulse Oximetry 99 Oxygen Delivery Method Room Air Room Air Labs 01/31/25 04:52 02/01/25 10:06 Therapy Recommendations Therapy Recommendations: ST Recommendations Level of Supervision 1:1 Feeding Supervision Liquid Consistency Thin Liquids Recommendation Solid Consistency Pureed Solids Recommendations Meat Consistency Pureed Meats,Extra Bowl of Gravy Recommendations Medication Administration Whole Pills,Give Pills in Applesauce Dysphagia Swallow Precautions/ Sitting Upright (90 deg),Double Swallow, Strategies Effortful Swallow,Small Bites/Sips,Alternate Liquids/Solids,Pacing/Slow-Rate,Sit Upright 30 Minutes Referral Recommendations Modified Barium Swallow ST Recommended Services at Speech Therapy Discharge Assessment/Plan (1) Seizure: Assessment/Problem Details: SUBJECTIVE: No overnight events. No new complaints today. He denies headache. His left arm is feeling fine. He has multiple family members that are present so we camearound to talk to them and update them. EXAMINATION: Afebrile. In no distress. No deformities or trauma. Limbs seem well-perfused. No significant edema.Normal work of breathing. Visualized skin is generally intact and without lesions aside from age-related findings. Affect normal. He is alert. Attention seems okay. Responses are a bit slow but significantly better than they were. Speech is fluent and nondysarthric. Pupils are equal. Ocular motility is full. Visual schaeffer are full to finger counting. No nystagmus. Facial sensation is normal. Hearing is normal. Facial strength is normal. Tongue is midline. Muscle bulk, tone, and strength are normal. No tremors. No myoclonus. Light touch is intact. DATA REVIEW: -CT head shows hypodensity in the right parietotemporal region -CTA head and neck fairly unremarkable, the right M1 and M2 segments look okay but there might be some distal occlusions in the M3 segments -Routine EEG done on January 27, 2025 was with frequent right parietal sharp waves -MRI brain with and without contrast January 28, 2025 shows cortical-based diffusion restriction in the right parietal and occipital lobe and maybe the left parietal lobe. There is right temporal lobe signal abnormality worrisome for low-grade glioma. Also consider cerebritis/encephalitis. There is a left parasagittal frontal focus of T2 hyperintensity also concerning for low-grade glioma. -CT of chest, abdomen, and pelvis do not show any signs concerning for malignantdisease/source ASSESSMENT: 79-year-old man brought in January 26, 2025 after being found down at home. CT head showed hypodensityin the right parietotemporal area initially concerning for stroke. He had a focal motor seizure involving the left upper extremity waswitnessed in the emergency department. There is cortical-based diffusion restriction overlying the right temporoparietal lobe(s) that I think reflects recent seizure activity. I do not believe this was a cerebrovascular event. The M1 and M2 segments of the right MCA are fine, and there is questionable paucity of branches of M3 segments but that might just be related to the lesion. He has T2/FLAIR hyperintensity of the white matter looking consistent with vasogenic edematous changes in the right temporal lobe and right parietal lobe and also in the left parasagittal frontal lobe. 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 No obvious enhancement. He has beenafebrile and generally without headache. His routine EEG shows frequent right parietal sharp waves and he looks to still be at risk for seizure activity. PLAN: 1. Continue the levetiracetam at 1000 mg twice daily. 2. He will need a lumbar puncture, tentatively Tuesday. He has chronically beenon aspirin 81 mg daily and has been placed on apixaban 5 mg twice daily for new onset atrial fibrillation. Last dose of aspirin was January 29, 2025. I put a hold on his apixaban for noon on Tuesday. 3. Serum autoimmune encephalitis profile is pending Plan: (2) Cerebritis: Plan: Plan Documented By: Bartolome Amezquita DO 02/01/251723 Signed By: 02/01/251724 [facility]03-07-2025 Progress note Author Romy Leon [facility] Note Date/Time February 01, 2025 1:47 pm [facility] [address] [place] [address] Physiatry(Rehab) Progress Note Signed Patient: Bailee Traore MR#: [id number] : 1945 Acct:[id number] Age/Sex: 79 / M Adm Date: 5 Loc: Room: [address] [place] [address] Type: ADM IN Attending Dr: Omkar Louie MD Copies to: ~ Date of Service: 02/01/2025 Subjective Subjective Narrative: Mr. Traore is a 79 year old male who presents with multifactorial functional decline in the setting of what was initially thought to be acute stroke, but on further evaluation is non-traumatic brain dysfunction, broad differential including seizure, autoimmune encephalitis, brain tumor such as glioma. Per chart review, the patient was found down at home. Upon presentation to the hospital, NIH score was 10. 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 Did not receive thrombolytic therapy due to unknown timeline. Was also noted to be in afib with RVR on presentation and was given 5 mg IV Lopressor with conversion back to NSR. He also was noted to have a focal seizure. Has since been started on Keppra and PRN Ativan. Ongoing workup per neurology as noted. Possibly pending lumbar puncture which would require Eliquis to be on hold. Defer to them for timing of that. Interval history: Patient was seen and evaluated in his room while sitting up in chair. He is alert, pleasant, oriented. Able to hold a meaningful conversation, provides appropriate answers to assessment questions although unable to recall much of a preadmission history. He has no pain at this time. No other major complaints. No further reports of seizures. Neurology is planning a lumbar puncture on Tuesday. Eliquis on hold is off today. Patient is still has a Pizano catheter in place, unsure of chronicity although per the patient, it was placed during this admission. We can attempt a voiding trial in the next few days. Therapy rivera he is doing pretty good. He is ambulatory 38 feet without an assistive device requiring min assist. Transfers with min a, bed mobility SBA/CGA. Review of Systems Review of Systems All other systems reviewed & are negative unless noted below or in HPI Exam Physical Exam Vital Signs: Temp Pulse Resp BP Pulse Ox O2 Del Method 97.4 F L 80 14 97/60 L 96 Room Air 02/01/25 10:10 02/01/25 10:10 02/01/25 10:10 02/01/25 10:10 02/01/25 10:10 02/01/25 10:11 Narrative: General: Awake, alert, oriented x3 HENT: Normal to inspection, normocephalic, atraumatic Eyes: PERRL, normal conjunctiva and sclera Neck: Normal ROM, normal visual inspection. Trachea midline. Cardio: Regular heart rate and rhythm Respiratory: Clear to auscultation bilaterally. Normal respiratory effort. No respiratory distress. GI: Abdomen soft, nontender, nondistended, active bowel sounds x4 quadrants Neuro: CN II-XII intact. Strength 5/5, equal bilaterally. No focal deficits noted at this time. Extremities: No edema, erythema, cyanosis Psych: Mood and affect appropriate. Normal speech. Objective Labs 01/31/25 04:52 02/01/25 10:06 Labs: Laboratory Results - last 24 hr 02/01/25 10:06 PHA Creatinine Clear 77.55 Sodium 137 Potassium 3.2 L Chloride 100 Carbon Dioxide 28.7 Anion Gap 11.5 BUN 18 Creatinine 0.82 Est GFR (CKD-EPI) > 60.0 Glucose 132 H Calcium 9.2 Medications and Allergies Allergies and Active Meds: Allergies No Known Allergies Allergy (Verified 01/26/25 07:34) Active Medications Generic Name Dose Route Start Last Admin Trade Name Freq PRN Reason Stop Dose Admin Acetaminophen 500 mg 01/30/25 21:03 01/31/25 21:28 Acetaminophen 500 Mg Tablet PO 01/30/26 21:02 500 mg Q4H PRN Administration Pain Al Hydrox/Mg Hydrox/Simethicone 30 ml 01/30/25 21:03 Mag Hydrox/Al Hydrox/Simeth 30 Ml Udc PO 01/30/26 21:02 Q4H PRN Indigestion Apixaban 5 mg 01/31/25 09:00 02/01/25 10:14 Apixaban 5 Mg Tablet PO 01/31/26 08:59 5 mg BID AL Administration Atorvastatin Calcium 80 mg 01/31/25 21:00 01/31/25 21:28 Atorvastatin 80 Mg Tablet PO 01/31/26 20:59 80 mg QPM AL Administration Bisacodyl 10 mg 01/30/25 21:03 Bisacodyl 10 Mg Supp.Rect MD 01/30/26 21:02 DAILY PRN Constipation Docusate Sodium 100 mg 01/30/25 21:03 Docusate 100 Mg Capsule PO 01/30/26 21:02 BID PRN Constipation Docusate Sodium 283 mg 01/30/25 21:03 Docusate Enema 283 Mg/5 Ml Enema MD 01/30/26 21:02 DAILY PRN Constipation Lactulose 30 gm 01/30/25 21:03 Lactulose 20 Gm/30 Ml Udc PO 01/30/26 21:02 DAILY PRN Constipation Levetiracetam 1,000 mg 01/31/25 09:00 02/01/25 10:14 Levetiracetam 500 Mg Tablet PO 01/31/26 08:59 1,000 mg BID AL Administration Levothyroxine Sodium 50 mcg 01/31/25 06:30 02/01/25 05:51 Levothyroxine 50 Mcg Tablet PO 01/31/26 06:29 50 mcg DAILY.0630 AL Administration Lisinopril 20 mg 01/31/25 09:00 02/01/25 10:14 Lisinopril 20 Mg Tablet PO 01/31/26 08:59 Not Given DAILY AL Metoprolol Succinate 50 mg 01/31/25 09:00 02/01/25 10:14 Metoprolol Succinate 50 Mg Tab.Er.24h PO 01/31/26 08:59 Not Given DAILY AL Pantoprazole Sodium 40 mg 01/31/25 18:00 01/31/25 18:42 Pantoprazole 40 Mg Tablet.Dr PO 01/31/26 17:59 40 mg DAILY.PC.SUPPER AL Administration Quetiapine Fumarate 25 mg 01/31/25 22:00 01/31/25 21:28 Quetiapine Fumarate 25 Mg Tablet PO 01/31/26 21:59 25 mg QHS AL Administration Sennosides 17.2 mg 01/31/25 12:00 Sennosides 8.6 Mg Tablet PO 01/31/26 11:59 DAILY@12 PRN If no BM in 2 days Sodium Chloride 0 ml 01/31/25 09:00 02/01/25 10:15 Sodium Chloride 0.9 % 10 Ml Syringe IV-PUSH 01/31/26 08:59 10 ml BID AL Administration Assessment/Plan Assessment/Plan (1) Nontraumatic brain injury: Plan: PT to improve pt's strength, endurance, bed mobility, transfers (sit-stand), standing balance, gait quality on level surfaces and stairs, coordination and functional ADL skills. Will also work to improve pt's safety awareness during transfers and ambulation. OT for basic ADL re-training (bathing, dressing, toileting, continence, grooming, feeding, transferring), to increase activity tolerance and functional mobility and to evaluate for adaptive and assistive devices. Will work to improve pt's endurance and educate pt on fall prevention and energy conservationtechniques-pacing strategies and proper breathing techniques during functional tasks. CONSTRUCTION OR LEAK GANG LABORER to evaluate and treat patient?s cognition, language and communication skills, assess swallow function. Patient education Pressure ulcer prophylaxis; encourage mobilization, frequent postural changes, pressure-relief techniques DVT prophylaxis Encourage deep breathing exercise incentive spirometry. Monitor bladder. Toileting schedule. Continue current bladder management, with scans as needed and CIC if needed. Start bowel care program every day to obtain continence, prevent ileus. Maintain fall precautions Gait and balance retraining Provision of the necessary gait aids and functional adaptive equipment to enhance the patient's a functional faith Encourage deep breathing exercises and incentive spirometry RD evaluation Ensure adequate nutrition and hydration Discharge planning. 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 Traore is a 79 year old male who presents with multifactorial functional decline in the setting of what was initially thought to be acute stroke, but on further evaluation is non-traumatic brain dysfunction, broad differential including seizure, autoimmune encephalitis, brain tumor such as glioma. -Improving from cognitive standpoint. Talkative, able to answer questions appropriately. -Plan is for an LP on Tuesday per neurology. Maintain Eliquis on hold for now. -Remains hypokalemic, K on recheck this morning 3.2 despite being supplemented yesterday. I will give additional 40meq now, recheck levels at 1800. Hospitalist to assist with management of comorbid medical conditions Pain control: Limit sedating medications. Bowel and bladder: Pizano noted. Skin: As ordered, turn and position for offloading. Sleep: Optimize sleep / wake to reduce seizure risk DVT prophylaxis: As ordered, anticoagulated with Eliquis Functional status: Impaired, see PT/OT/CONSTRUCTION OR LEAK GANG LABORER. Discharge planning:Home in 1-2 weeks, lives home alone. I spent 21 minutes for services, including ajbd-[id number] encounter with the patient, discussion of the case, plan of care, and exam; and [id number]-[id number] activities, such as reviewing pertinent search engine optimization consultant documentation, recent therapynotes, laboratory and radiology studies, and discussion of case with care team including physician, nursing, wrapper caser, and therapists. More than 50 % of time was spent on patient/family counseling or coordination ofcare. xadenia and I formulated the plan of care and facilitated the medical decision making. <Statement entered by Oren Lara MD - 02/01/25 14:47> I reviewed the history and the relevant portions of the chart, including currentorders, allied health and search engine optimization consultant notes, labs/imaging and plan of care as above. Documented By: Romy Leon APRN 02/01/25 1 259 Signed By: <Electronically signed by JOAQUÍN Leon> 02/01/25 1317 <Electronically signed by Oren Lara MD> 02/01/25 1447 [facility] Work Phone: 1(446) 594-958703-07-2025 [place] [address] Physiatry(Rehab) Progress Note Signed Patient: Bailee Traore MR#: [id number] : 1945 Acct:[id number] Age/Sex: 79 / M Adm Date: 5 Loc: Room: 0K7542-8 Type: ADM IN Attending Dr: Omkar Louie MD Copies to: ~ Date of Service: 02/01/2025 Subjective Subjective Narrative: Mr. Traore is a 79 year old male who presents with multifactorial functional decline in the setting of what was initially thought to be acute stroke, but on further evaluation is non-traumatic braindysfunction, broad differential including seizure, autoimmune encephalitis, brain tumor such as glioma. Per chart review, the patient was found down at home. Upon presentation to the hospital, NIH score was 10. 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 Did not receive thrombolytic therapy due to unknown timeline. Was also noted to be in afib with RVR on presentation and was given 5 mg IV Lopressor with conversion back to NSR. He also was noted to have a focal seizure. Has since been started on Keppra and PRN Ativan. Ongoing workup per neurology as noted. Possibly pending lumbar puncture which would require Eliquisto be on hold. Defer to them for timing of that. Interval history: Patient was seen and evaluated in his room while sitting up in chair. He is alert, pleasant, oriented. Able to hold a meaningful conversation, provides appropriate answers to assessment questions although unable to recall much of a preadmission history. He has no pain at this time. No other major complaints. No further reports of seizures. Neurology is planning a lumbar puncture on Tuesday. Eliquis on hold is off today. Patient is still has a Pizano catheter in place, unsure of chronicity although per the patient, it was placed during this admission. We can attempt a voiding trial in the next few days. Therapy rivera he is doing pretty good. He is ambulatory 38 feet without an assistive device requiring min assist. Transfers with min a, bed mobility SBA/CGA. Review of Systems Review of Systems All other systems reviewed & are negative unless noted below or in HPI Exam Physical Exam Vital Signs: Temp Pulse Resp BP Pulse Ox O2 Del Method 97.4 F L 80 14 97/60 L 96 Room Air 02/01/25 10:10 02/01/25 10:10 02/01/25 10:10 02/01/25 10:10 02/01/25 10:10 02/01/25 10:11 Narrative: General: Awake, alert, oriented x3 HENT: Normal to inspection, normocephalic, atraumatic Eyes: PERRL, normal conjunctiva and sclera Neck: Normal ROM, normal visual inspection. Trachea midline. Cardio: Regular heart rate and rhythm Respiratory: Clear to auscultation bilaterally. Normal respiratory effort. No respiratory distress. GI: Abdomen soft, nontender, nondistended, active bowel sounds x4 quadrants Neuro: CN II-XII intact. Strength 5/5, equal bilaterally. No focal deficits noted at this time. Extremities: No edema, erythema, cyanosis Psych: Mood and affect appropriate. Normal speech. Objective Labs 01/31/25 04:52 02/01/25 10:06 Labs: Laboratory Results - last 24 hr 02/01/25 10:06 PHA Creatinine Clear 77.55 Sodium 137 Potassium 3.2 L Chloride 100 Carbon Dioxide 28.7 Anion Gap 11.5 BUN 18 Creatinine 0.82 Est GFR (CKD-EPI) > 60.0 Glucose 132 H Calcium 9.2 Medications and Allergies Allergies and Active Meds: Allergies No Known Allergies Allergy (Verified 01/26/25 07:34) Active Medications Generic Name Dose Route Start Last Admin Trade Name Freq PRN Reason Stop Dose Admin Acetaminophen 500 mg 01/30/25 21:03 01/31/25 21:28 Acetaminophen 500 Mg Tablet PO 01/30/26 21:02 500 mg Q4H PRN Administration Pain Al Hydrox/Mg Hydrox/Simethicone 30 ml 01/30/25 21:03 Mag Hydrox/Al Hydrox/Simeth 30 Ml Udc PO 01/30/26 21:02 Q4H PRN Indigestion Apixaban 5 mg 01/31/25 09:00 02/01/25 10:14 Apixaban 5 Mg Tablet PO 01/31/26 08:59 5 mg BID AL Administration Atorvastatin Calcium 80 mg 01/31/25 21:00 01/31/25 21:28 Atorvastatin 80 Mg Tablet PO 01/31/26 20:59 80 mg QPM AL Administration Bisacodyl 10 mg 01/30/25 21:03 Bisacodyl 10 Mg Supp.Rect MD 01/30/26 21:02 DAILY PRN Constipation Docusate Sodium 100 mg 01/30/25 21:03 Docusate 100 Mg Capsule PO 01/30/26 21:02 BID PRN Constipation Docusate Sodium 283 mg 01/30/25 21:03 Docusate Enema 283 Mg/5 Ml Enema MD 01/30/26 21:02 DAILY PRN Constipation Lactulose 30 gm 01/30/25 21:03 Lactulose 20 Gm/30 Ml Udc PO 01/30/26 21:02 DAILY PRN Constipation Levetiracetam 1,000 mg 01/31/25 09:00 02/01/25 10:14 Levetiracetam 500 Mg Tablet PO 01/31/26 08:59 1,000 mg BID AL Administration Levothyroxine Sodium 50 mcg 01/31/25 06:30 02/01/25 05:51 Levothyroxine 50 Mcg Tablet PO 01/31/26 06:29 50 mcg DAILY.0630 AL Administration Lisinopril 20 mg 01/31/25 09:00 02/01/25 10:14 Lisinopril 20 Mg Tablet PO 01/31/26 08:59 Not Given DAILY AL Metoprolol Succinate 50 mg 01/31/25 09:00 02/01/25 10:14 Metoprolol Succinate 50 Mg Tab.Er.24h PO 01/31/26 08:59 Not Given DAILY AL Pantoprazole Sodium 40 mg 01/31/25 18:00 01/31/25 18:42 Pantoprazole 40 Mg Tablet.Dr PO 01/31/26 17:59 40 mg DAILY.PC.SUPPER AL Administration Quetiapine Fumarate 25 mg 01/31/25 22:00 01/31/25 21:28 Quetiapine Fumarate 25 Mg Tablet PO 01/31/26 21:59 25 mg QHS AL Administration Sennosides 17.2 mg 01/31/25 12:00 Sennosides 8.6 Mg Tablet PO 01/31/26 11:59 DAILY@12 PRN If no BM in 2 days Sodium Chloride 0 ml 01/31/25 09:00 02/01/25 10:15 Sodium Chloride 0.9 % 10 Ml Syringe IV-PUSH 01/31/26 08:59 10 ml BID LA Administration Assessment/Plan Assessment/Plan (1) Nontraumatic brain injury: Plan: PT to improve pt's strength, endurance, bed mobility, transfers (sit-stand), standing balance, gaitquality on level surfaces and stairs, coordination and functional ADL skills. Will also work to improve pt's safety awareness during transfers and ambulation. OT for basic ADL re-training (bathing, dressing, toileting, continence, grooming, feeding, transferring), to increase activity tolerance and functional mobility and to evaluate for adaptive and assistive devices. Will work to improve pt's endurance and educate pt on fall prevention and energy conser vationtechniques-pacing strategies and proper breathing techniques during functional tasks. CONSTRUCTION OR LEAK GANG LABORER to evaluate and treat patient?s cognition, language and communication skills, assess swallow function. Patient education Pressure ulcer prophylaxis; encourage mobilization, frequent postural changes, pressure-relief techniques DVT prophylaxis Encourage deep breathing exercise incentive spirometry. Monitor bladder. Toileting schedule. Continue current bladder management, with scans as needed and CIC if needed. Start bowel care program every day to obtain continence, prevent ileus. Maintain fall precautions Gait and balance retraining Provision of the necessary gait aids and functional adaptive equipment to enhance the patient's a functional faith Encourage deep breathing exercises and incentive spirometry RD evaluation Ensure adequate nutrition and hydration Discharge planning. 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 Traore is a 79 year old male who presents with multifactorial functional decline in the setting of what was initially thought to be acute stroke, but on further evaluation is non-traumatic braindysfunction, broad differential including seizure, autoimmune encephalitis, brain tumor such as glioma. -Improving from cognitive standpoint. Talkative, able to answer questions appropriately. -Plan is for an LP on Tuesday per neurology. Maintain Eliquis on hold for now. -Remains hypokalemic, K on recheck this morning 3.2 despite being supplemented yesterday. I will give additional 40meq now, recheck levels at 1800. Hospitalist to assist with management of comorbid medical conditions Pain control: Limit sedating medications. Bowel and bladder: Pizano noted. Skin: As ordered, turn and position for offloading. Sleep: Optimize sleep / wake to reduce seizure risk DVT prophylaxis: As ordered, anticoagulated with Eliquis Functional status: Impaired, see PT/OT/CONSTRUCTION OR LEAK GANG LABORER. Discharge planning:Home in 1-2 weeks, lives home alone. I spent 21 minutes for services, including [id number] encounter with the patient, discussion of the case, plan of care, and exam; and [id number] activities, such as reviewing pertinent search engine optimization consultant documentation, recent therapynotes, laboratory and radiology studies, and discussion of case with care team including physician, nursing, wrapper caser, and therapists. More than 50 % of time was spent on patient/family counseling or coordination ofcare. hollis and I formulated the plan of care and facilitated the medical decision making. I reviewed the history and the relevant portions of the chart, including currentorders, allied health and search engine optimization consultant notes, labs/imaging and plan of care as above. Documented By: Romy Leon APRN 02/01/25 1 259 Signed By: 02/01/25 1317 02/01/25 1447 [facility]03-06-2025 Consult note Author Bartolome Amezquita [facility] Note Date/Time January 31, 2025 2:46 pm [facility] [address] [place] [address] Neurology Consult Note Signed Patient: Bailee Traore MR#: [id number] : 1945 Acct:[id number] Age/Sex: 79 / M Adm Date: 5 Loc: Room: [address] [place] [address] Type: ADM IN Attending Dr: Omkar Louie MD Copies to: DO Omkar Garcia MD Kelly Ramey, DO~ HPI Consult Date: 01/31/25 Orientation And Mobility Specialist: Bartolome Amezquita DO [facility] Medical History Thyroid disorder Problem List clean-up per request of Phys. EHR Cmte HTN (hypertension) Problem List clean-up per request of Phys. EHR Cmte Surgical History Hx of knee surgery Problem List clean-up per request of Phys. EHR Cmte Social History Smoking Status: Former smoker Tobacco Type: pipe and cigars Substance Use Type: Former User Substance Abuse Comment: Former ETOH sober for 51 years Social History Comments: unable to assess Meds Medications and Allergies Allergies No Known Allergies Allergy (Verified 01/26/25 07:34) Home Medications levothyroxine 50 mcg capsule 50 mcg PO DAILY.0630 08/29/21 [History Confirmed 01/30/25] lisinopril 20 mg tablet 20 mg PO DAILY 08/29/21 [History Confirmed 01/30/25] apixaban 5 mg tablet (Eliquis) 5 mg PO BID 30 days #60 tabs 01/28/25 [Rx Confirmed 01/30/25] atorvastatin 80 mg tablet 80 mg PO QPM 30 days #30 tabs 01/28/25 [Rx Confirmed 01/30/25] metoprolol succinate 50 mg tablet,extended release 24 hr 50 mg PO DAILY 30 days #30 tabs 01/28/25 [Rx Confirmed 01/30/25] levetiracetam 500 mg tablet 1,000 mg (2 x 500 mg) PO BID #0 tabs 01/30/25 [Rx Confirmed 01/30/25] Exam Physical Exam Vital Signs: Temp Pulse Resp BP Pulse Ox O2 Del Method 97.1 F L 72 16 115/61 95 Room Air 01/31/25 15:20 01/31/25 15:20 01/31/25 15:20 01/31/25 15:20 01/31/25 15:20 01/31/25 15:20 Results - Neuro Laboratory Findings 01/31/25 04:52 01/31/25 04:52 Therapy Recommendations Therapy Recommendations: ST Recommendations Level of Supervision 1:1 Feeding Supervision Liquid Consistency Thin Liquids Recommendation Solid Consistency Pureed Solids Recommendations Meat Consistency Pureed Meats,Extra Bowl of Gravy Recommendations Medication Administration Whole Pills,Give Pills in Applesauce Dysphagia Swallow Precautions/ Sitting Upright (90 deg),Double Swallow, Strategies Effortful Swallow,Small Bites/Sips,Alternate Liquids/Solids,Pacing/Slow-Rate,Sit Upright 30 Minutes Referral Recommendations Modified Barium Swallow ST Recommended Services at Speech Therapy Discharge Assessment/Plan (1) Seizure: Assessment/Problem Details: HPI: 79-year-old man. Was brought to the hospital for evaluation January 26, 2025. Found down at home. Reportedly pressed a life alert button and EMS came out andfound him slumped over on the toilet. Here he was found to be in atrial fibrillation with RVR. He had a focal seizure in which she had rhythmic left leg and arm movements. EEG subsequently showed frequent high amplitude sharp waves emanating from the right parietal area. CT head showed some hypodensity in the right parietotemporal area. MRI as discussed below. Today he tells me he does not have any headache. No vision issues. No left armissues. Is getting used to his new room on the fifth floor. His friend is in there again visiting him. EXAMINATION: Afebrile. In no distress. No deformities or trauma. Limbs seem well-perfused. No significant edema. Normal work of breathing. Visualized skin is generally intact and without lesions aside from age-related findings. Affect normal. He is alert. Attention seems okay. Responses are a bit slow but significantly better than they were. Speech is fluent and nondysarthric. Pupils are equal. Ocular motility is full. Visual schaeffer are full to finger counting. No nystagmus. Facial sensation is normal. Hearing is normal. Facial strength is normal. Tongue is midline. Muscle bulk, tone, and strength are normal. No tremors. No myoclonus. Light touch is intact. DATA REVIEW: -CT head shows hypodensity in the right parietotemporal region -CTA head and neck fairly unremarkable, the right M1 and M2 segments look okay but there might be some distal occlusions in the M3 segments -Routine EEG done on January 27, 2025 was with frequent right parietal sharp waves -MRI brain with and without contrast January 28, 2025 shows cortical-based diffusion restriction in the right parietal and occipital lobe and maybe the left parietal lobe. There is right temporal lobe signal abnormality worrisome for low-grade glioma. Also consider cerebritis/encephalitis. There is a left parasagittal frontal focus of T2 hyperintensity also concerning for low-grade glioma. -CT of chest, abdomen, and pelvis do not show any signs concerning for malignantdisease/source ASSESSMENT: 79-year-old man brought in January 26, 2025 after being found down at home. CT head showed hypodensity in the right parietotemporal area initially concerning for stroke. He had a focal motor seizure involving the left upper extremity waswitnessed in the emergency department. There is cortical-based diffusion restriction overlying the right temporoparietal lobe(s) that I think reflects recent seizure activity. I do not believe this was a cerebrovascular event. The M1 and M2 segments of the right MCA are fine, and there is questionable paucity of branches of M3 segments but that might just be related to the lesion. He has T2/FLAIR hyperintensity of the white matter looking consistent with vasogenic edematous changes in the right temporal lobe and right parietal lobe and also in the left parasagittal frontal lobe. 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 No obvious enhancement. He has beenafebrile and generally without headache. His routine EEG shows frequent right parietal sharp waves and he looks to still be at risk for seizure activity. PLAN: 1. Continue the levetiracetam at 1000 mg twice daily. 2. He will need a lumbar puncture, tentatively Tuesday. He has chronically beenon aspirin 81 mg daily and has been placed on apixaban 5 mg twice daily for new onset atrial fibrillation. Last dose of aspirin was January 29, 2025. I put a hold on his apixaban for noon on Tuesday. 3. Serum autoimmune encephalitis profile is pending (2) Cerebritis: Documented By: Bartolome Amezquita DO 01/31/25 1533 Signed By: <Electronically signed by Bartolome Amezquita DO> 01/31/25 1546 [facility] Work Phone: 1(851) [phone] Consult [place] [id number] Neurology Consult Note Signed Patient: Bailee Traore MR#: [id number] : 1945 Acct:[id number] Age/Sex: 79 / M Adm Date: 5 Loc: Room: [address] [place] [address] Type: ADM IN Attending Dr: Omkar Louie MD Copies to: DO Omkar Garcia MD Kelly Ramey, DO~ HPI Consult Date: 01/31/25 Orientation And Mobility Specialist: Bartolome Amezquita DO [facility] Medical History Thyroid disorder Problem List clean-up per request of Phys. EHR Cmte HTN (hypertension) Problem List clean-up per request of Phys. EHR Cmte Surgical History Hx of knee surgery Problem List clean-up per request of Phys. EHR Cmte Social History Smoking Status: Former smoker Tobacco Type: pipe and cigars Substance Use Type: Former User Substance Abuse Comment: Former ETOH sober for 51 years Social History Comments: unable to assess Meds Medications and Allergies Allergies No Known Allergies Allergy (Verified 01/26/25 07:34) Home Medications levothyroxine 50 mcg capsule 50 mcg PO DAILY.0630 08/29/21 [History Confirmed 01/30/25] lisinopril 20 mg tablet 20 mg PO DAILY 08/29/21 [History Confirmed 01/30/25] apixaban 5 mg tablet (Eliquis) 5 mg PO BID 30 days #60 tabs 01/28/25 [Rx Confirmed 01/30/25] atorvastatin 80 mg tablet 80 mg PO QPM 30 days #30 tabs 01/28/25 [Rx Confirmed 01/30/25] metoprolol succinate 50 mg tablet,extended release 24 hr 50 mg PO DAILY 30 days #30 tabs 01/28/25 [Rx Confirmed 01/30/25] levetiracetam 500 mg tablet 1,000 mg (2 x 500 mg) PO BID #0 tabs 01/30/25 [Rx Confirmed 01/30/25] Exam Physical Exam Vital Signs: Temp Pulse Resp BP Pulse Ox O2 Del Method 97.1 F L 72 16 115/61 95 Room Air 01/31/25 15:20 01/31/25 15:20 01/31/25 15:20 01/31/25 15:20 01/31/25 15:20 01/31/25 15:20 Results - Neuro Laboratory Findings 01/31/25 04:52 01/31/25 04:52 Therapy Recommendations Therapy Recommendations: ST Recommendations Level of Supervision 1:1 Feeding Supervision Liquid Consistency Thin Liquids Recommendation Solid Consistency Pureed Solids Recommendations Meat Consistency Pureed Meats,Extra Bowl of Gravy Recommendations Medication Administration Whole Pills,Give Pills in Applesauce Dysphagia Swallow Precautions/ Sitting Upright (90 deg),Double Swallow, Strategies Effortful Swallow,Small Bites/Sips,Alternate Liquids/Solids,Pacing/Slow-Rate,Sit Upright 30 Minutes Referral Recommendations Modified Barium Swallow ST Recommended Services at Speech Therapy Discharge Assessment/Plan (1) Seizure: Assessment/Problem Details: HPI: 79-year-old man. Was brought to the hospital for evaluation January 26, 2025. Found down at home. Reportedly pressed a life alert button and EMS came out andfound him slumped over on the toilet. Here hewas found to be in atrial fibrillation with RVR. He had a focal seizure in which she had rhythmic left leg and arm movements. EEG subsequently showed frequent high amplitude sharp waves emanating from the right parietal area. CT head showed some hypodensity in the right parietotemporal area. MRI asdiscussed below. Today he tells me he does not have any headache. No vision issues. No left armissues. Is getting used to his new room on the fifth floor. His friend is in there again visiting him. EXAMINATION: Afebrile. In no distress. No deformities or trauma. Limbs seem well-perfused. No significant edema.Normal work of breathing. Visualized skin is generally intact and without lesions aside from age-related findings. Affect normal. He is alert. Attention seems okay. Responses are a bit slow but significantly better than they were. Speech is fluent and nondysarthric. Pupils are equal. Ocular motility is full. Visual schaeffer are full to finger counting. No nystagmus. Facial sensation is normal. Hearing is normal. Facial strength is normal. Tongue is midline. Muscle bulk, tone, and strength are normal. No tremors. No myoclonus. Light touch is intact. DATA REVIEW: -CT head shows hypodensity in the right parietotemporal region -CTA head and neck fairly unremarkable, the right M1 and M2 segments look okay but there might be some distal occlusions in the M3 segments -Routine EEG done on January 27, 2025 was with frequent right parietal sharp waves -MRI brain with and without contrast January 28, 2025 shows cortical-based diffusion restriction in the right parietal and occipital lobe and maybe the left parietal lobe. There is right temporal lobe signal abnormality worrisome for low-grade glioma. Also consider cerebritis/encephalitis. There is a left parasagittal frontal focus of T2 hyperintensity also concerning for low-grade glioma. -CT of chest, abdomen, and pelvis do not show any signs concerning for malignantdisease/source ASSESSMENT: 79-year-old man brought in January 26, 2025 after being found down at home. CT head showed hypodensityin the right parietotemporal area initially concerning for stroke. He had a focal motor seizure involving the left upper extremity waswitnessed in the emergency department. There is cortical-based diffusion restriction overlying the right temporoparietal lobe(s) that I think reflects recent seizure activity. I do not believe this was a cerebrovascular event. The M1 and M2 segments of the right MCA are fine, and there is questionable paucity of branches of M3 segments but that might just be related to the lesion. He has T2/FLAIR hyperintensity of the white matter looking consistent with vasogenic edematous changes in the right temporal lobe and right parietal lobe and also in the left parasagittal frontal lobe. 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 No obvious enhancement. He has beenafebrile and generally without headache. His routine EEG shows frequent right parietal sharp waves and he looks to still be at risk for seizure activity. PLAN: 1. Continue the levetiracetam at 1000 mg twice daily. 2. He will need a lumbar puncture, tentatively Tuesday. He has chronically beenon aspirin 81 mg daily and has been placed on apixaban 5 mg twice daily for new onset atrial fibrillation. Last dose of aspirin was January 29, 2025. I put a hold on his apixaban for noon on Tuesday. 3. Serum autoimmune encephalitis profile is pending (2) Cerebritis: Documented By: Bartolome Amezquita DO 01/31/25 1533 Signed By: 01/31/25 1546 [facility]03-06-2025 History and physical note Author Omkar Louie [facility] Note Date/Time January 31, 2025 9:39 am [facility] [address] [place] [address] Physiatry (Rehab) H&P Signed Patient: Bailee Traore MR#: [id number] : 1945 Acct:[id number] Age/Sex: 79 / M Adm Date: 5 Loc: Room: [address] [place] [address] Type: ADM IN Attending Dr: Omkar Louie MD Copies to: MD Lucille Medina DO~ Date of Service: 01/31/2025 HPI The patient was seen and examined on: 01/31/25 Etiologic Diagnosis/Impairment Group: 02.1 Chief complaint: weakness, functional decline History of Present Illness: Mr. Traore is a 79 year old male who presents with multifactorial functional decline in the setting of what was initially thought to be acute stroke, but on further evaluation is non-traumatic brain dysfunction, broad differential including seizure, autoimmune encephalitis, brain tumor such as glioma. Per chart review, the patient was found down at home. Upon presentation to the hospital, NIH score was 10. 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 Did not receive thrombolytic therapy due to unknown timeline. Was also noted to be in afib with RVR on presentation and was given 5 mg IV Lopressor with conversion back to NSR. He also was noted to have a focal seizure. Has since been started on Keppra and PRN Ativan. Ongoing workup per neurology as noted. Possibly pending lumbar puncture which would require Eliquis to be on hold. Defer to them for timing of that. Today he is awake and alert. Working with speech therapy. Feels unsteady on his feet and a little bit foggy . [facility] Medical History Thyroid disorder Problem List clean-up per request of Phys. EHR Cmte HTN (hypertension) Problem List clean-up per request of Phys. EHR Cmte Surgical History Hx of knee surgery Problem List clean-up per request of Phys. EHR Cmte Social History Smoking Status: Former smoker Tobacco Type: pipe and cigars Substance Use Type: Former User Substance Abuse Comment: Former ETOH sober for 51 years Social History Comments: unable to assess Review of Systems Review of Systems All other systems reviewed & are negative unless noted below or in HPI Meds Medications and Allergies Allergies No Known Allergies Allergy (Verified 01/26/25 07:34) Home and Active Meds: Home Medications levothyroxine 50 mcg capsule 50 mcg PO DAILY.0630 08/29/21 [History Confirmed 01/30/25] lisinopril 20 mg tablet 20 mg PO DAILY 08/29/21 [History Confirmed 01/30/25] apixaban 5 mg tablet (Eliquis) 5 mg PO BID 30 days #60 tabs 01/28/25 [Rx Confirmed 01/30/25] atorvastatin 80 mg tablet 80 mg PO QPM 30 days #30 tabs 01/28/25 [Rx Confirmed 01/30/25] metoprolol succinate 50 mg tablet,extended release 24 hr 50 mg PO DAILY 30 days #30 tabs 01/28/25 [Rx Confirmed 01/30/25] levetiracetam 500 mg tablet 1,000 mg (2 x 500 mg) PO BID #0 tabs 01/30/25 [Rx Confirmed 01/30/25] Active Medications Acetaminophen (Acetaminophen 500 Mg Tablet) 500 mg PO Q4H PRN PRN Reason: Pain Stop: 01/30/26 21:02 Last Admin: 01/31/25 05:39 Dose: 500 mg Al Hydrox/Mg Hydrox/Simethicone (Mag Hydrox/Al Hydrox/Simeth 30 Ml Udc) 30 ml PO Q4H PRN PRN Reason: Indigestion Stop: 01/30/26 21:02 Apixaban (Apixaban 5 Mg Tablet) 5 mg PO BID AL Stop: 01/31/26 08:59 Atorvastatin Calcium (Atorvastatin 80 Mg Tablet) 80 mg PO QPM AL Stop: 01/31/26 20:59 Bisacodyl (Bisacodyl 10 Mg Supp.Rect) 10 mg MD DAILY PRN PRN Reason: Constipation Stop: 01/30/26 21:02 Docusate Sodium (Docusate 100 Mg Capsule) 100 mg PO BID PRN PRN Reason: Constipation Stop: 01/30/26 21:02 Docusate Sodium (Docusate Enema 283 Mg/5 Ml Enema) 283 mg MD DAILY PRN PRN Reason: Constipation Stop: 01/30/26 21:02 Lactulose (Lactulose 20 Gm/30 Ml Udc) 30 gm PO DAILY PRN PRN Reason: Constipation Stop: 01/30/26 21:02 Levetiracetam (Levetiracetam 500 Mg Tablet) 1,000 mg PO BID [facility] Stop: 01/31/26 08:59 Levothyroxine Sodium (Levothyroxine 50 Mcg Tablet) 50 mcg PO DAILY.629 [facility] Stop: 01/31/26 06:29 Last Admin: 01/31/25 05:39 Dose: 50 mcg Lisinopril (Lisinopril 20 Mg Tablet) 20 mg PO DAILY AL Stop: 01/31/26 08:59 Metoprolol Succinate (Metoprolol Succinate 50 Mg Tab.Er.24h) 50 mg PO DAILY [facility] Stop: 01/31/26 08:59 Sennosides (Sennosides 8.6 Mg Tablet) 17.2 mg PO DAILY@12 PRN PRN Reason: If no BM in 2 days Stop: 01/31/26 11:59 Sodium Chloride (Sodium Chloride 0.9 % 10 Ml Syringe) 0 ml IV-PUSH BID [facility] Stop: 01/31/26 08:59 Exam Physical Exam Vital Signs: Temp Pulse Resp BP Pulse Ox O2 Del Method 97.8 F 67 16 161/88 H 95 Room Air 01/31/25 03:58 01/31/25 03:58 01/31/25 03:58 01/31/25 03:58 01/31/25 03:58 01/31/25 03:58 Narrative: Pleasant No acute distress Alert and oriented x 3 but delayed processing and mild confusion noted Generalized weakness Ataxic Results - Phys. Rehab Labs Labs: Laboratory Results - last 24 hr 01/31/25 04:52 Corrected WBC 5.8 Uncorrected WBC Count 5.8 RBC 4.84 Hgb 14.3 Hct 41.4 MCV 85.5 MCH 29.4 MCHC 34.4 RDW 13.8 Plt Count 164 MPV 8.6 Neut % (Auto) 59.2 Lymph % (Auto) 22.5 Meade % (Auto) 13.8 Eos % (Auto) 3.3 Baso % (Auto) 1.2 Nucleat RBC Rel Count 0.1 Neut # (Auto) 3.4 Lymph # (Auto) 1.3 Meade # (Auto) 0.8 Eos # (Auto) 0.2 Baso # (Auto) 0.1 PHA Creatinine Clear 79.49 Sodium 137 Potassium 3.1 L Chloride 100 Carbon Dioxide 30.1 Anion Gap 10.0 BUN 21 Creatinine 0.74 Est GFR (CKD-EPI) > 60.0 Glucose 108 H Calcium 8.8 Total Bilirubin 1.4 H AST 37 ALT 17 Alkaline Phosphatase 89 Total Protein 6.7 Albumin 3.4 L Globulin 3.3 Albumin/Globulin Ratio 1.0 Prealbumin 13.1 L Additional Results Results Comment: I reviewed clinical lab tests, radiology reports and obtained and summated medical records and have ordered follow up lab tests and imaging studies as needed for rehabilitation care. Individualized Plan of Care Individualized Plan of Care Plan of Care: Individualized Overall Plan of Care: Admit Date/Time: January 30, 2025 Expected LOS: 2 weeks Expected Discharge Destination: Home Rehabilitation [facility]: 02.1 Primary Diagnosis: Nontraumatic brain injury To have patient become more independent and to return home. Medical/ Functional Prognosis: Good Anticipated Functional Outcomes/Goals and Interventions: 1.Therapy Functional Outcome/Goal: Anticipate independent for bed mobility Anticipated interventions: Physician management, PT, OT, CONSTRUCTION OR LEAK GANG LABORER, , Dietitian, RehabNursing, Case management 2. Therapy Functional Outcome/Goal: Anticipate independent for transfers Anticipated interventions: Physician management, PT, OT, CONSTRUCTION OR LEAK GANG LABORER, Case management, Dietitian, Rehab Nursing 3. Therapy Functional Outcome/Goal: Anticipate independent for ambulation Anticipated interventions: Physician management, PT, OT, CONSTRUCTION OR LEAK GANG LABORER Case management, Dietitian, Rehab Nursing 4.Therapy Functional Outcome/Goal: Anticipate independent for self-care Anticipated interventions: Physician management, PT, OT, CONSTRUCTION OR LEAK GANG LABORER, Case management, Dietitian, Rehab Nursing 5.Therapy Functional Outcome/Goal: Anticipate independent for functional communication and swallowing Anticipated interventions: Physician management, PT, OT, CONSTRUCTION OR LEAK GANG LABORER, Case management, Dietitian, Rehab Nursing Required Therapy PT: 1 hour per day at least 5 days per week with additional therapy on as neededbasis. Comments: PT to improve pt's strength, endurance, bed mobility, transfers (sit-stand), standing balance, gait quality on level surfaces and stairs, coordination and functional ADL skills. Will also work to improve pt's safety awareness during transfers and ambulation. OT: 1 hour per day at least 5 days per week with additional therapy on as neededbasis. Comments: OT for basic ADL re-training (bathing, dressing, toileting, continence, grooming, feeding, transferring), to increase activity tolerance andfunctional mobility and to evaluate for adaptive and assistive devices. Will work to improve pt's endurance and educate pt on fall prevention and energy conservation techniques-pacing strategies and proper breathing techniques duringfunctional tasks. Speech/Language - 1 hour per day at least 5 days per week with additional therapy on as needed basis. Comments: CONSTRUCTION OR LEAK GANG LABORER to evaluate and treat patient?s cognition, language and communication skills, assess swallow function. Other: Dietitian, Rehab nursing, Wound, P&O, Neuropsychology as needed RATIONALE FOR IRF ADMISSION: Patient has both medical and functional complexities that require 24 hour daily monitoring and intervention from Tutoring Manager as well as other consulting physicians including internal medicine as well as 24 hour daily nascar driver nursing - for medical safe / optimal management. Patient requires interdisciplinary therapy team rehabilitation care including OT, PT, CONSTRUCTION OR LEAK GANG LABORER, SW, Psychology, Rehab Nursing, requires and can tolerate at least 3 hours of daily OT and PT therapy at least 5 days weekly. The following medical conditions significantly impact the rehabilitation process andare being addressed daily and can not be managed at home or in a lesser intense medical setting: Refer to above problem oriented plan of care Assessment/Plan (1) Nontraumatic brain injury: Plan: PT to improve pt's strength, endurance, bed mobility, transfers (sit-stand), standing balance, gait quality on level surfaces and stairs, coordination and functional ADL skills. Will also work to improve pt's safety awareness during transfers and ambulation. OT for basic ADL re-training (bathing, dressing, toileting, continence, grooming, feeding, transferring), to increase activity tolerance and functional mobility and to evaluate for adaptive and assistive devices. Will work to improve pt's endurance and educate pt on fall prevention and energy conservationtechniques-pacing strategies and proper breathing techniques during functional tasks. CONSTRUCTION OR LEAK GANG LABORER to evaluate and treat patient?s cognition, language and communication skills, assess swallow function. Patient education Pressure ulcer prophylaxis; encourage mobilization, frequent postural changes, pressure-relief techniques DVT prophylaxis Encourage deep breathing exercise incentive spirometry. Monitor bladder. Toileting schedule. Continue current bladder management, with scans as needed and CIC if needed. Start bowel care program every day to obtain continence, prevent ileus. Maintain fall precautions Gait and balance retraining Provision of the necessary gait aids and functional adaptive equipment to enhance the patient's a functional faith Encourage deep breathing exercises and incentive spirometry RD evaluation Ensure adequate nutrition and hydration Discharge planning. 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 Traore is a 79 year old male who presents with multifactorial functional decline in the setting of what was initially thought to be acute stroke, but on further evaluation is non-traumatic brain dysfunction, broad differential including seizure, autoimmune encephalitis, brain tumor such as glioma. -Neurology to follow for ongoing management, workup including possible LP? -Continue keppra, seizure precautions as ordered -CONSTRUCTION OR LEAK GANG LABORER to screen for cog/swallowing issues, MBS if indicated. -Pizano out for voiding trial in a few days Hospitalist to assist with management of comorbid medical conditions Pain control: Limit sedating medications. Bowel and bladder: Pizano noted. Skin: As ordered, turn and position for offloading. Sleep: Optimize sleep / wake to reduce seizure risk DVT prophylaxis: As ordered, anticoagulated with Eliquis Functional status: Impaired, see PT/OT/CONSTRUCTION OR LEAK GANG LABORER. Discharge planning:Home in 1-2 weeks, lives home alone. I completed a substantive portion of this encounter, the medical decision makingportion of this note in its entirety, including Allied health note review, nursing note review, search engine optimization consultant note review, discussion with nursing and case management, and more than 50% of my time was spent on counseling and coordination of care, time spent 55 minutes Patient was personally seen by me, Dr. Louie, on the day of encounter, within 24hours of rehab admission, reviewed the history and the relevant portions of the chart, including current orders, allied health and search engine optimization consultant notes, labs/imaging and performed bender elements of exam and I formulated the plan of care and facilitated the medical decision making. Documented By: Omkar Louie MD 01/31/25 0801 Signed By: <Electronically signed by Omkar Louie MD> 01/31/25 103 [facility] Work Phone: [phone] [place] [address] Physiatry (Rehab) H&P Signed Patient: Bailee Traore MR#: [id number] : 1945 Acct:[id number] Age/Sex: 79 / M Adm Date: 5 Loc: Room: [address] [place] [address] Type: ADM IN Attending Dr: Omkar Louie MD Copies to: MD Lucille Medina DO~ Date of Service: 01/31/2025 HPI The patient was seen and examined on: 01/31/25 Etiologic Diagnosis/Impairment Group: 02.1 Chief complaint: weakness, functional decline History of Present Illness: Mr. Traore is a 79 year old male who presents with multifactorial functional decline in the setting of what was initially thought to be acute stroke, but on further evaluation is non-traumatic braindysfunction, broad differential including seizure, autoimmune encephalitis, brain tumor such as glioma. Per chart review, the patient was found down at home. Upon presentation to the hospital, NIH score was 10. 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 Did not receive thrombolytic therapy due to unknown timeline. Was also noted to be in afib with RVR on presentation and was given 5 mg IV Lopressor with conversion back to NSR. He also was noted to have a focal seizure. Has since been started on Keppra and PRN Ativan. Ongoing workup per neurology as noted. Possibly pending lumbar puncture which would require Eliquisto be on hold. Defer to them for timing of that. Today he is awake and alert. Working with speech therapy. Feels unsteady on his feet and a little bit foggy . [facility] Medical History Thyroid disorder Problem List clean-up per request of Phys. EHR Cmte HTN (hypertension) Problem List clean-up per request of Phys. EHR Cmte Surgical History Hx of knee surgery Problem List clean-up per request of Phys. EHR Cmte Social History Smoking Status: Former smoker Tobacco Type: pipe and cigars Substance Use Type: Former User Substance Abuse Comment: Former ETOH sober for 51 years Social History Comments: unable to assess Review of Systems Review of Systems All other systems reviewed & are negative unless noted below or in HPI Meds Medications and Allergies Allergies No Known Allergies Allergy (Verified 01/26/25 07:34) Home and Active Meds: Home Medications levothyroxine 50 mcg capsule 50 mcg PO DAILY.0630 08/29/21 [History Confirmed 01/30/25] lisinopril 20 mg tablet 20 mg PO DAILY 08/29/21 [History Confirmed 01/30/25] apixaban 5 mg tablet (Eliquis) 5 mg PO BID 30 days #60 tabs 01/28/25 [Rx Confirmed 01/30/25] atorvastatin 80 mg tablet 80 mg PO QPM 30 days #30 tabs 01/28/25 [Rx Confirmed 01/30/25] metoprolol succinate 50 mg tablet,extended release 24 hr 50 mg PO DAILY 30 days #30 tabs 01/28/25 [Rx Confirmed 01/30/25] levetiracetam 500 mg tablet 1,000 mg (2 x 500 mg) PO BID #0 tabs 01/30/25 [Rx Confirmed 01/30/25] Active Medications Acetaminophen (Acetaminophen 500 Mg Tablet) 500 mg PO Q4H PRN PRN Reason: Pain Stop: 01/30/26 21:02 Last Admin: 01/31/25 05:39 Dose: 500 mg Al Hydrox/Mg Hydrox/Simethicone (Mag Hydrox/Al Hydrox/Simeth 30 Ml Udc) 30 ml PO Q4H PRN PRN Reason: Indigestion Stop: 01/30/26 21:02 Apixaban (Apixaban 5 Mg Tablet) 5 mg PO BID AL Stop: 01/31/26 08:59 Atorvastatin Calcium (Atorvastatin 80 Mg Tablet) 80 mg PO QPM AL Stop: 01/31/26 20:59 Bisacodyl (Bisacodyl 10 Mg Supp.Rect) 10 mg MD DAILY PRN PRN Reason: Constipation Stop: 01/30/26 21:02 Docusate Sodium (Docusate 100 Mg Capsule) 100 mg PO BID PRN PRN Reason: Constipation Stop: 01/30/26 21:02 Docusate Sodium (Docusate Enema 283 Mg/5 Ml Enema) 283 mg MD DAILY PRN PRN Reason: Constipation Stop: 01/30/26 21:02 Lactulose (Lactulose 20 Gm/30 Ml Udc) 30 gm PO DAILY PRN PRN Reason: Constipation Stop: 01/30/26 21:02 Levetiracetam (Levetiracetam 500 Mg Tablet) 1,000 mg PO BID [facility] Stop: 01/31/26 08:59 Levothyroxine Sodium (Levothyroxine 50 Mcg Tablet) 50 mcg PO DAILY.629 AL Stop: 01/31/26 06:29 Last Admin: 01/31/25 05:39 Dose: 50 mcg Lisinopril (Lisinopril 20 Mg Tablet) 20 mg PO DAILY AL Stop: 01/31/26 08:59 Metoprolol Succinate (Metoprolol Succinate 50 Mg Tab.Er.24h) 50 mg PO DAILY AL Stop: 01/31/26 08:59 Sennosides (Sennosides 8.6 Mg Tablet) 17.2 mg PO DAILY@12 PRN PRN Reason: If no BM in 2 days Stop: 01/31/26 11:59 Sodium Chloride (Sodium Chloride 0.9 % 10 Ml Syringe) 0 ml IV-PUSH BID [facility] Stop: 01/31/26 08:59 Exam Physical Exam Vital Signs: Temp Pulse Resp BP Pulse Ox O2 Del Method 97.8 F 67 16 161/88 H 95 Room Air 01/31/25 03:58 01/31/25 03:58 01/31/25 03:58 01/31/25 03:58 01/31/25 03:58 01/31/25 03:58 Narrative: Pleasant No acute distress Alert and oriented x 3 but delayed processing and mild confusion noted Generalized weakness Ataxic Results - Phys. Rehab Labs Labs: Laboratory Results - last 24 hr 01/31/25 04:52 Corrected WBC 5.8 Uncorrected WBC Count 5.8 RBC 4.84 Hgb 14.3 Hct 41.4 MCV 85.5 MCH 29.4 MCHC 34.4 RDW 13.8 Plt Count 164 MPV 8.6 Neut % (Auto) 59.2 Lymph % (Auto) 22.5 Meade % (Auto) 13.8 Eos % (Auto) 3.3 Baso % (Auto) 1.2 Nucleat RBC Rel Count 0.1 Neut # (Auto) 3.4 Lymph # (Auto) 1.3 Meade # (Auto) 0.8 Eos # (Auto) 0.2 Baso # (Auto) 0.1 PHA Creatinine Clear 79.49 Sodium 137 Potassium 3.1 L Chloride 100 Carbon Dioxide 30.1 Anion Gap 10.0 BUN 21 Creatinine 0.74 Est GFR (CKD-EPI) > 60.0 Glucose 108 H Calcium 8.8 Total Bilirubin 1.4 H AST 37 ALT 17 Alkaline Phosphatase 89 Total Protein 6.7 Albumin 3.4 L Globulin 3.3 Albumin/Globulin Ratio 1.0 Prealbumin 13.1 L Additional Results Results Comment: I reviewed clinical lab tests, radiology reports and obtained and summated medical records and haveordered follow up lab tests and imaging studies as needed for rehabilitation care. Individualized Plan of Care Individualized Plan of Care Plan of Care: Individualized Overall Plan of Care: Admit Date/Time: January 30, 2025 Expected LOS: 2 weeks Expected Discharge Destination: Home Rehabilitation [facility]: 02.1 Primary Diagnosis: Nontraumatic brain injury To have patient become more independent and to return home. Medical/ Functional Prognosis: Good Anticipated Functional Outcomes/Goals and Interventions: 1.Therapy Functional Outcome/Goal: Anticipate independent for bed mobility Anticipated interventions: Physician management, PT, OT, CONSTRUCTION OR LEAK GANG LABORER, , Dietitian, RehabNursing, Case management 2. Therapy Functional Outcome/Goal: Anticipate independent for transfers Anticipated interventions: Physician management, PT, OT, CONSTRUCTION OR LEAK GANG LABORER, Case management, Dietitian, Rehab Nursing 3. Therapy Functional Outcome/Goal: Anticipate independent for ambulation Anticipated interventions: Physician management, PT, OT, CONSTRUCTION OR LEAK GANG LABORER Case management, Dietitian, Rehab Nursing 4.Therapy Functional Outcome/Goal: Anticipate independent for self-care Anticipated interventions: Physician management, PT, OT, CONSTRUCTION OR LEAK GANG LABORER, Case management, Dietitian, Rehab Nursing 5.Therapy Functional Outcome/Goal: Anticipate independent for functional communication and swallowing Anticipated interventions: Physician management, PT, OT, CONSTRUCTION OR LEAK GANG LABORER, Case management, Dietitian, Rehab Nursing Required Therapy PT: 1 hour per day at least 5 days per week with additional therapy on as neededbasis. Comments: PT to improve pt's strength, endurance, bed mobility, transfers (sit- stand), standing balance, gait quality on level surfaces and stairs, coordination and functional ADL skills. Will also work to improve pt's safety awareness during transfers and ambulation. OT: 1 hour per day at least 5 days per week with additional therapy on as neededbasis. Comments: OT for basic ADL re-training (bathing, dressing, toileting, continence, grooming, feeding, transferring), to increase activity tolerance andfunctional mobility and to evaluate for adaptive and assistive devices. Will work to improve pt's endurance and educate pt on fall prevention and energy conservation techniques-pacing strategies and proper breathing techniques duringfunctional tasks. Speech/Language - 1 hour per day at least 5 days per week with additional therapy on as needed basis. Comments: CONSTRUCTION OR LEAK GANG LABORER to evaluate and treat patient?s cognition, language and communication skills, assess swallow function. Other: Dietitian, Rehab nursing, Wound, P&O, Neuropsychology as needed RATIONALE FOR IRF ADMISSION: Patient has both medical and functional complexities that require 24 hour daily monitoring and intervention from Tutoring Manager as well as other consulting physicians including internal medicine as well as 24 hour daily nascar driver nursing - for medical safe / optimal manageme nt. Patient requires interdisciplinary therapy team rehabilitation care including OT, PT, CONSTRUCTION OR LEAK GANG LABORER, SW, Psychology, Rehab Nursing, requires and can tolerate at least 3 hours of daily OT and PT therapy at least 5 days weekly. The following medical conditions significantly impact the rehabilitation process andare being addressed daily and can not be managed at home or in a lesser intense medical setting: Refer to above problem oriented plan of care Assessment/Plan (1) Nontraumatic brain injury: Plan: PT to improve pt's strength, endurance, bed mobility, transfers (sit-stand), standing balance, gaitquality on level surfaces and stairs, coordination and functional ADL skills. Will also work to improve pt's safety awareness during transfers and ambulation. OT for basic ADL re-training (bathing, dressing, toileting, continence, grooming, feeding, transferring), to increase activity tolerance and functional mobility and to evaluate for adaptive and assistive devices. Will work to improve pt's endurance and educate pt on fall prevention and energy conser vationtechniques-pacing strategies and proper breathing techniques during functional tasks. CONSTRUCTION OR LEAK GANG LABORER to evaluate and treat patient?s cognition, language and communication skills, assess swallow function. Patient education Pressure ulcer prophylaxis; encourage mobilization, frequent postural changes, pressure-relief techniques DVT prophylaxis Encourage deep breathing exercise incentive spirometry. Monitor bladder. Toileting schedule. Continue current bladder management, with scans as needed and CIC if needed. Start bowel care program every day to obtain continence, prevent ileus. Maintain fall precautions Gait and balance retraining Provision of the necessary gait aids and functional adaptive equipment to enhance the patient's a functional faith Encourage deep breathing exercises and incentive spirometry RD evaluation Ensure adequate nutrition and hydration Discharge planning. 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 Traore is a 79 year old male who presents with multifactorial functional decline in the setting of what was initially thought to be acute stroke, but on further evaluation is non-traumatic braindysfunction, broad differential including seizure, autoimmune encephalitis, brain tumor such as glioma. -Neurology to follow for ongoing management, workup including possible LP? -Continue keppra, seizure precautions as ordered -CONSTRUCTION OR LEAK GANG LABORER to screen for cog/swallowing issues, MBS if indicated. -Pizano out for voiding trial in a few days Hospitalist to assist with management of comorbid medical conditions Pain control: Limit sedating medications. Bowel and bladder: Pizano noted. Skin: As ordered, turn and position for offloading. Sleep: Optimize sleep / wake to reduce seizure risk DVT prophylaxis: As ordered, anticoagulated with Eliquis Functional status: Impaired, see PT/OT/CONSTRUCTION OR LEAK GANG LABORER. Discharge planning:Home in 1-2 weeks, lives home alone. I completed a substantive portion of this encounter, the medical decision makingportion of this note in its entirety, including Allied health note review, nursing note review, search engine optimization consultant note review,discussion with nursing and case management, and more than 50% of my time was spent on counseling and coordination of care, time spent 55 minutes Patient was personally seen by me, Dr. Louie, on the day of encounter, within 24hours of rehab admission, reviewed the history and the relevant portions of the chart, including current orders, alliedhealth and search engine optimization consultant notes, labs/imaging and performed bender elements of exam and I formulated the plan of care and facilitated the medical decision making. Documented By: Omkar Louie MD 01/31/25800 Signed By: 01/31/25 1039 [facility]03-05-2025 Progress note Author Bartolome Amezquita [facility] Note Date/Time January 30, 2025 3:48 pm [facility] [address] [place] [address] Neurology Progress Note Signed Patient: Bailee Traore MR#: [id number] : 1945 Acct:[id number] Age/Sex: 79 / M Adm Date: 5 Loc: Room: [address] [place] [address] Type: ADM IN Attending Dr: Kofi Mauricio MD Copies to: ~ Date of Service: 01/30/2025 Exam Physical Exam Vital Signs: Temp Pulse Resp BP Pulse Ox O2 Del Method O2 Flow Rate 97.9 F 76 26 H 116/60 94 L Room Air 2 01/30/25 12:00 01/30/25 13:00 01/30/25 13:00 01/30/25 13:00 01/30/25 12:00 01/30/25 16:00 01/29/25 08:38 Objective Vital Signs Vital Signs: Vital Signs - 24 hr 01/29/25 17:30 01/29/25 18:00 01/29/25 19:19 Temperature Pulse Rate 73 80 78 Respiratory Rate 18 20 16 Blood Pressure 147/70 H 146/83 H 156/73 H 02 Sat by Pulse Oximetry 90 L Oxygen Delivery Method Room Air Room Air Room Air 01/29/25 20:00 01/29/25 20:00 01/29/25 21:00 Temperature 98.1 F Pulse Rate 70 71 Respiratory Rate 12 13 Blood Pressure 180/79 H 157/80 H 02 Sat by Pulse Oximetry 95 95 Oxygen Delivery Method Room Air Room Air Room Air 01/29/25 22:00 01/29/25 23:00 01/30/25 00:00 Temperature 98.3 F Pulse Rate 66 81 69 Respiratory Rate 13 18 15 Blood Pressure 152/70 H 143/73 H 106/51 L 02 Sat by Pulse Oximetry 95 95 95 Oxygen Delivery Method Room Air Room Air Room Air 01/30/25 00:00 01/30/25 01:00 01/30/25 02:00 Temperature Pulse Rate 64 58 L Respiratory Rate 15 16 Blood Pressure 118/64 156/76 H 02 Sat by Pulse Oximetry 95 95 Oxygen Delivery Method Room Air Room Air Room Air 01/30/25 03:00 01/30/25 04:00 01/30/25 04:00 Temperature 98.4 F Pulse Rate 55 L 69 Respiratory Rate 17 18 Blood Pressure 122/65 135/64 02 Sat by Pulse Oximetry 95 95 Oxygen Delivery Method Room Air Room Air Room Air 01/30/25 06:00 01/30/25 07:00 01/30/25 08:00 Temperature 98.6 F Pulse Rate 68 68 Respiratory Rate 12 12 Blood Pressure 124/60 120/65 02 Sat by Pulse Oximetry 95 93 L Oxygen Delivery Method Room Air Room Air Room Air 01/30/25 08:00 01/30/25 08:00 01/30/25 09:00 Temperature Pulse Rate 58 L 58 L Respiratory Rate 15 15 Blood Pressure 129/80 135/68 02 Sat by Pulse Oximetry Oxygen Delivery Method Room Air Room Air Room Air 01/30/25 10:00 01/30/25 11:00 01/30/25 12:00 Temperature 97.9 F Pulse Rate 65 67 77 Respiratory Rate 13 19 24 Blood Pressure 139/64 142/66 H 02 Sat by Pulse Oximetry 95 94 L Oxygen Delivery Method Room Air Room Air Room Air 01/30/25 13:00 01/30/25 16:00 Temperature Pulse Rate 76 Respiratory Rate 26 H Blood Pressure 116/60 02 Sat by Pulse Oximetry Oxygen Delivery Method Room Air Room Air Labs 01/28/25 04:48 01/29/25 06:27 Therapy Recommendations Therapy Recommendations: OT Recommendations OT Recommended Discharge Inpatient Rehab Unit Location PT Recommendations PT Recommended Discharge Care Home Facility,Inpatient Rehab Unit Location PT Recommended Services at Physical Therapy,Occupational Therapy,Speech Discharge Therapy ST Recommendations Level of Supervision Constant Supervision Liquid Consistency Thin Liquids Recommendation Solid Consistency Pureed Solids Recommendations Meat Consistency Pureed Meats Recommendations Medication Administration Whole Pills,Give Pills in Applesauce Dysphagia Swallow Precautions/ Sitting Upright (90 deg),Small Bites/Sips,Pacing Strategies /Slow-Rate ST Recommended Services at Speech Therapy Discharge Assessment/Plan (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 He has a friend visiting him. He is a bit impulsive, wanting to get up to urinate even though he has a Pizano in place. Seems quickerto respond today. Says his left arm is functioning normally. He has no complaints regarding his legs. EXAMINATION: Afebrile In no distress. No deformities or trauma. Limbs seem well-perfused. No significant edema. Normal work of breathing. Visualized skin is generally intact and without lesions aside from age-related findings. Affect normal. He is alert. Attention somewhat impaired. Responses are slow or delayed. Speech is fluent and nondysarthric. Pupils are equal. Ocular motility is full. Visual schaeffer are full to finger counting. No nystagmus. Facial sensation is normal. Hearing is normal. Facial strength is normal. Tongue is midline. Muscle bulk, tone, and strength are normal. No tremors. No myoclonus. Light touch is intact. DATA REVIEW: -CT head shows hypodensity in the right parietotemporal region -CTA head and neck fairly unremarkable, the right M1 and M2 segments look okay but there might be some distal occlusions in the M3 segments -Routine EEG done on January 27, 2025 was with frequent right parietal sharp waves -MRI brain with and without contrast January 28, 2025 shows cortical-based diffusion restriction in the right parietal and occipital lobe and maybe the left parietal lobe. There is right temporal lobe signal abnormality worrisome for low-grade glioma. Also consider cerebritis/encephalitis. There is a left parasagittal frontal focus of T2 hyperintensity also concerning for low-grade glioma. -CT of chest, abdomen, and pelvis do not show any signs concerning for malignantdisease/source ASSESSMENT: 79-year-old man. CT head January 26, 2025 showing hypodensity in the right parietotemporal area. He had a focal motor seizure involving the left upper extremity was witnessed in the emergency department. This is not a cerebrovascular event. There is cortical-based diffusion restriction overlying the right temporoparietal lobe(s) that I think reflects recent seizure activity. He has T2/FLAIR hyperintensity of the white matter looking consistent with vasogenic edematous changes in the right temporal lobe and right parietal lobe and also in the left parasagittal frontal lobe. 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 His routine EEG shows frequent right parietal sharp waves and he looks to still be at risk for seizure activity. PLAN: 1. Continue the levetiracetam at 1000 mg twice daily. 2. He will need a lumbar puncture. He has chronically been on aspirin 81 mg daily and has been placed on apixaban 5 mg twice daily for new onset atrial fibrillation. Last dose of aspirin was January 29, 2025. Perhaps the lumbar puncture can be performed on Tuesday or Tuesday. The apixaban will need held for a few days prior to that. 3. Serum autoimmune encephalitis profile is pending 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, focal motor: Plan: (4) Hemiballismus: Plan: (5) Atrial fibrillation with RVR: Plan: Plan Documented By: Bartolome Amezquita DO 01/30/251644 Signed By: <Electronically signed by Bartolome Amezquita DO> 01/30/258 [facility] Work Phone: 1(877) 758-643003-05-2025 Discharge summary Author Kofi Mauricio [facility] Note Date/Time January 30, 2025 3:35 pm [facility] [address] [place] [address] Discharge Summary Signed Patient: Bailee Traore MR#: [id number] : 1945 Acct:[id number] Age/Sex: 79 / M Adm Date: 5 Loc: Room: [address] [place] [address]: Kofi Mauricio MD Copies to: DO Kofi Brito MD~ Providers Date of Discharge: 01/30/25 Discharging Provider: Kofi Mauricio Primary Care Provider: Lucille Engel (Clinic) Consults: 01/26/25 09:44 Consult to Telemedicine Stat Comment: Reason for Consult: stroke alert/standby 01/26/25 16:46 Consult to Neurology Routine Comment: Consulting Provider: Lady Parks Reason For Exam: Acute Stroke Has Provider Been Notified: Yes Date of Notification: 01/26/25 Time of Notification: 16:55 01/26/25 16:48 Consult to Occupational Therapy Routine Comment: Physician Instructions: Consult to OT for:: Evaluation and Treat Consult to Physical Therapy Routine Comment: Physician Instructions: Consult to PT for:: Evaluation and Treat Consult to Speech Therapy Routine Comment: Reason for ST Consult: Speech/Language Eval & Tx Bedside Swallow Eval & Tx Diet per ST Recommendations: Yes Contact Physician Before Ordering Diet: No Modified Barium Swallow Study, If Recommended: Yes 01/27/25 18:17 Consult to Cardiology Routine Comment: Consulting Provider: [facility] - Cardiology Reason For Exam: Intermittent Afib RVR, presented w/R MCA CVA Has Provider Been Notified: Yes Date of Notification: 01/28/25 Time of Notification: 07:31 01/28/25 09:16 Consult to Physiatry Routine Comment: Consulting Provider: [facility] - Phys Med - Rehab Reason For Exam: post acute care discharge needs Has Provider Been Notified: Yes Date of Notification: 01/28/25 Time of Notification: 09:16 Discharge Diagnosis (1) Seizure disorder, focal motor: (2) Hemiballismus: (3) Atrial fibrillation with RVR: Final Diagnosis Final Discharge Diagnosis: CVA was ruled out seizure disorder white matter looking consistent with vasogenic edematous changes in the right temporal lobe and right parietal lobe and also in the left parasagittal frontal lobe. 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 workup ordered. Summary Hospital Course Hospital course: Mr. Traore is an 79-year-old male with unclear past medical history at this time who presents to the emergency department after being found down. In the emergency department, patient with a significantly elevated NIH score greater than 10. Initial CT of the head was obtained, and patient was noted to be outside of the thrombolytic window. He was also found to be in atrial fibrillation with RVR. He was given 5 mg IV Lopressor which flipped him back into sinus rhythm. BNP was elevated at 258 and initial troponin was 36. CT of the head without contrast was noteworthy for area of concerning ischemia and CTAof the head and neck demonstrated right sided M3 MCA distal occlusion. Emergency room doctor discussed case with [place] neuro[facility] care and CT perfusion study was added. This did not demonstrate any area that was amenable to intervention. Patient was given 1 dose aspirin 325 mg. He was able to speaka little more clearly, but then patient had what appeared to be a focal seizure.ED attending and patient was recommended for discussion with neurology locally, Dr. Parks. She recommended CT of the head repeated which did not show any evidence of hemorrhage. He was admitted to the hospitalist service for further management. Seizure-Like Episode Hemiballismus -Continue with Keppra twice daily 1000 mg per neuro -Seizure precautions -Stroke workup including: MRI brain white matter looking consistent with vasogenic edematous changes in the right temporal lobe and right parietal lobe and also in the left parasagittal frontal lobe. 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 Echocardiogram EF 50-55%, mild to modLVH, lipid panel reviewed, A1c 5.9, PT/OT/ST -CT chest, abdomen, and pelvis, with no evidence of occult malignancies. Atrial fibrillation with RVR- controlled rate -Started on Metoprolol -Started on Eliquis -Cardiology consulted. Input appreciated RLE skin lesion [facility] -Currently on anticoagulation -Can be followed as outpatient. He has an appt in a week. As of today, patient remained hemodynamically stable. Patient is stable from neurology and cardiology standpoint for discharge. Discussed with patient and his friend at bedside, all questions answered. Condition Condition at Discharge: Stable Time Spent with Patient Time spent providing/coordinating discharge services (# min): 41 Discharge Plan Discharge Plan Patient Disposition: Rehab [facility] Activity: Ambulate as Tolerated Diet: Other Comment: Pureed solids and meats Additional Instructions: REHAB TO MANAGE: PT/OT to eval and treat Monitor VS per protocol--HTN Monitor Neuro. assessment--Seizures Monitor Cardiac assessment--Atrial fib Monitor voiding--pizano removed on 01/30 Please follow Speech Therapy recommendations-- *Thin liquids *Pureed solids and meats *Pills whole in applesauce *Sit upright at 90 degrees for all oral intake *Take small bites and sips *Pace/eat slowly Please maintain and educate on seizure precautions. Maintain high risk fall precautions Care to be managed by Rehab providers Prescriptions: New metoprolol succinate 50 mg Tablet Extended Release 24 Hr 50 mg PO DAILY 30 Days Qty: 30 2RF Eliquis 5 mg Tablet 5 mg PO BID 30 Days Qty: 60 3RF atorvastatin 80 mg Tablet 80 mg PO QPM 30 Days Qty: 30 3RF levetiracetam 500 mg Tablet 1,000 mg PO BID Qty: 0 0RF Continued lisinopril 20 mg Tablet levothyroxine 50 mcg Capsule PO DAILY Discontinued atorvastatin 20 mg Tablet Follow Up: [facility] [Outside] (Please call for an appointment when discharged from Rehab.) Jayme Pearce MD [Active Staff] - 04/17/25 1:00 pm Continuity of Care Document Health Concerns: A [facility] screening has identified you as FRAIL or AT RISK FOR FRAILTY. This puts you at a higher risk for infection, illness, falls,and other injuries. Here are four ways to help you reduce your risk of frailty: 1. IDENTIFY EARLY SIGNS OF FRAILTY ? Discuss contributing factors and concerns with your doctor 2. BE ACTIVE ? Walking and light strengthening exercises will help reduce weakness 3. EAT WELL ? Aim for three healthy meals a day that are high in protein 4. THINK POSITIVE ? Keep your mind active by being sociable and continuing to learn References: Stay Strong: Four Ways to Beat the Frailty Risk [email or web address]-[email or web address] Exam Physical Exam Vital Signs: Temp Pulse Resp BP Pulse Ox O2 Del Method O2 Flow Rate 97.9 F 76 26 H 116/60 94 L Room Air 2 01/30/25 12:00 01/30/25 13:00 01/30/25 13:01/30/25 13:01/30/25 12:00 01/30/25 13:01/29/25 08:38 Narrative: Const General: cooperative HEENT Normal oropharyngeal mucosa without any ulcers or exudates Eyes: Conjunctiva normal Pulmonary Auscultation: clear to auscultation , no crackles, no wheezes Cardiovascular Rate: normal rate Rhythm: irregular rhythm Heart Sounds: S1 normal, S2 normal and no murmurs GI Inspection: non-distended Palpation: soft, not firm and nontender. No rigidity or rebound. Deferred Neuro General: alert, awake and oriented x3. his left sided weakness much improving, no obvious deficit. speech clear, tongue midline. Musculoskeletal: normal range of motion Extrem General: no cyanosis, no pedal edema Psych Appearance: appropriate affect. Grossly normal. Pleasant Documented By: Kofi Mauricio MD 01/30/25 16 18 Signed By: <Electronically signed by Kofi Mauricio MD> 01/30/25 2913 [facility] Work Phone: [phone]) 416-934703-05-2025 [place] [address] Neurology Progress Note Signed Patient: Bailee Traore MR#: [id number] : 1945 Acct:[id number] Age/Sex: 79 / M Adm Date: 5 Loc: Room: [address] [place] [address] Type: ADM IN Attending Dr: Kofi Mauricio MD Copies to: ~ Date of Service: 01/30/2025 Exam Physical Exam Vital Signs: Temp Pulse Resp BP Pulse Ox O2 Del Method O2 Flow Rate 97.9 F 76 26 H 116/60 94 L Room Air 2 01/30/25 12:00 01/30/25 13:00 01/30/25 13:00 01/30/25 13:00 01/30/25 12:00 01/30/25 16:00 01/29/25 08:38 Objective Vital Signs Vital Signs: Vital Signs - 24 hr 01/29/25 17:30 01/29/25 18:00 01/29/25 19:19 Temperature Pulse Rate 73 80 78 Respiratory Rate 18 20 16 Blood Pressure 147/70 H 146/83 H 156/73 H 02 Sat by Pulse Oximetry 90 L Oxygen Delivery Method Room Air Room Air Room Air 01/29/25 20:00 01/29/25 20:00 01/29/25 21:00 Temperature 98.1 F Pulse Rate 70 71 Respiratory Rate 12 13 Blood Pressure 180/79 H 157/80 H 02 Sat by Pulse Oximetry 95 95 Oxygen Delivery Method Room Air Room Air Room Air 01/29/25 22:00 01/29/25 23:00 01/30/25 00:00 Temperature 98.3 F Pulse Rate 66 81 69 Respiratory Rate 13 18 15 Blood Pressure 152/70 H 143/73 H 106/51 L 02 Sat by Pulse Oximetry 95 95 95 Oxygen Delivery Method Room Air Room Air Room Air 01/30/25 00:00 01/30/25 01:00 01/30/25 02:00 Temperature Pulse Rate 64 58 L Respiratory Rate 15 16 Blood Pressure 118/64 156/76 H 02 Sat by Pulse Oximetry 95 95 Oxygen Delivery Method Room Air Room Air Room Air 01/30/25 03:00 01/30/25 04:00 01/30/25 04:00 Temperature 98.4 F Pulse Rate 55 L 69 Respiratory Rate 17 18 Blood Pressure 122/65 135/64 02 Sat by Pulse Oximetry 95 95 Oxygen Delivery Method Room Air Room Air Room Air 01/30/25 06:00 01/30/25 07:00 01/30/25 08:00 Temperature 98.6 F Pulse Rate 68 68 Respiratory Rate 12 12 Blood Pressure 124/60 120/65 02 Sat by Pulse Oximetry 95 93 L Oxygen Delivery Method Room Air Room Air Room Air 01/30/25 08:00 01/30/25 08:00 01/30/25 09:00 Temperature Pulse Rate 58 L 58 L Respiratory Rate 15 15 Blood Pressure 129/80 135/68 02 Sat by Pulse Oximetry Oxygen Delivery Method Room Air Room Air Room Air 01/30/25 10:00 01/30/25 11:00 01/30/25 12:00 Temperature 97.9 F Pulse Rate 65 67 77 Respiratory Rate 13 19 24 Blood Pressure 139/64 142/66 H 02 Sat by Pulse Oximetry 95 94 L Oxygen Delivery Method Room Air Room Air Room Air 01/30/25 13:00 01/30/25 16:00 Temperature Pulse Rate 76 Respiratory Rate 26 H Blood Pressure 116/60 02 Sat by Pulse Oximetry Oxygen Delivery Method Room Air Room Air Labs 01/28/25 04:48 01/29/25 06:27 Therapy Recommendations Therapy Recommendations: OT Recommendations OT Recommended Discharge Inpatient Rehab Unit Location PT Recommendations PT Recommended Discharge Care Home Facility,Inpatient Rehab Unit Location PT Recommended Services at Physical Therapy,Occupational Therapy,Speech Discharge Therapy ST Recommendations Level of Supervision Constant Supervision Liquid Consistency Thin Liquids Recommendation Solid Consistency Pureed Solids Recommendations Meat Consistency Pureed Meats Recommendations Medication Administration Whole Pills,Give Pills in Applesauce Dysphagia Swallow Precautions/ Sitting Upright (90 deg),Small Bites/Sips,Pacing Strategies /Slow-Rate ST Recommended Services at Speech Therapy Discharge Assessment/Plan (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 He has a friend visiting him. He is a bit impulsive, wanting to get up to urinate even though he has a Pizano in place. Seems quickerto respond today. Says his left arm is functioning normally. He has no complaints regarding his legs. EXAMINATION: Afebrile In no distress. No deformities or trauma. Limbs seem well-perfused. No significant edema. Normal work of breathing. Visualized skin is generally intact and without lesions aside from age-related findings. Affect normal. He is alert. Attention somewhat impaired. Responses are slow or delayed. Speechis fluent and nondysarthric. Pupils are equal. Ocular motility is full. Visual schaeffer are full to finger counting. No nystagmus. Facial sensation is normal. Hearing is normal. Facial strength is normal. Tongue is midline. Muscle bulk, tone, and strength are normal. No tremors. No myoclonus. Light touch is intact. DATA REVIEW: -CT head shows hypodensity in the right parietotemporal region -CTA head and neck fairly unremarkable, the right M1 and M2 segments look okay but there might be some distal occlusions in the M3 segments -Routine EEG done on January 27, 2025 was with frequent right parietal sharp waves -MRI brain with and without contrast January 28, 2025 shows cortical-based diffusion restriction in the right parietal and occipital lobe and maybe the left parietal lobe. There is right temporal lobe signal abnormality worrisome for low-grade glioma. Also consider cerebritis/encephalitis. There is a left parasagittal frontal focus of T2 hyperintensity also concerning for low-grade glioma. -CT of chest, abdomen, and pelvis do not show any signs concerning for malignantdisease/source ASSESSMENT: 79-year-old man. CT head January 26, 2025 showing hypodensity in the right parietotemporal area. He had a focal motor seizure involving the left upper extremity was witnessed in the emergency department. This is not a cerebrovascular event. There is cortical-based diffusion restriction overlying the right temporoparietal lobe(s) that I think reflects recent seizure activity. He has T2/FLAIR hyperintensity of the white matter looking consistent with vasogenic edematous changes in the right temporal lobe and right parietal lobe and also in the left parasagittal frontal lobe. 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 His routine EEG shows frequent right parietal sharp waves and he looks to still be at risk for seizure activity. PLAN: 1. Continue the levetiracetam at 1000 mg twice daily. 2. He will need a lumbar puncture. He has chronically been on aspirin 81 mg daily and has been placed on apixaban 5 mg twice daily for new onset atrial fibrillation. Last dose of aspirin was January. Perhaps the lumbar puncture can be performed on Tuesday or Tuesday. The apixaban will need heldfor a few days prior to that. 3. Serum autoimmune encephalitis profile is pending 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, focal motor: Plan: (4) Hemiballismus: Plan: (5) Atrial fibrillation with RVR: Plan: Plan Documented By: Bartolome Amezquita DO 01/30/251644 Signed By: 01/30/25 1648 [facility]03-05-2025 [place] [address] Discharge Summary Signed Patient: Bailee Traore MR#: [id number] : 1945 Acct:[id number] Age/Sex: 79 / M Adm Date: 5 Loc: Room: [address] [place] [address]: Kofi Mauricio MD Copies to: DO Kofi Brito MD~ Providers Date of Discharge: 01/30/25 Discharging Provider: Kofi Mauricio Primary Care Provider: Lucille Engel (Clinic) Consults: 01/26/25 09:44 Consult to Telemedicine Stat Comment: Reason for Consult: stroke alert/standby 01/26/25 16:46 Consult to Neurology Routine Comment: Consulting Provider: Lady Parks Reason For Exam: Acute Stroke Has Provider Been Notified: Yes Date of Notification: 01/26/25 Time of Notification: 16:55 01/26/25 16:48 Consult to Occupational Therapy Routine Comment: Physician Instructions: Consult to OT for:: Evaluation and Treat Consult to Physical Therapy Routine Comment: Physician Instructions: Consult to PT for:: Evaluation and Treat Consult to Speech Therapy Routine Comment: Reason for ST Consult: Speech/Language Eval & Tx Bedside Swallow Eval & Tx Diet per ST Recommendations: Yes Contact Physician Before Ordering Diet: No Modified Barium Swallow Study, If Recommended: Yes 01/27/25 18:17 Consult to Cardiology Routine Comment: Consulting Provider: [facility] - Cardiology Reason For Exam: Intermittent Afib RVR, presented w/R MCA CVA Has Provider Been Notified: Yes Date of Notification: 01/28/25 Time of Notification: 07:31 01/28/25 09:16 Consult to Physiatry Routine Comment: Consulting Provider: [facility] - Phys Med - Rehab Reason For Exam: post acute care discharge needs Has Provider Been Notified: Yes Date of Notification: 01/28/25 Time of Notification: 09:16 Discharge Diagnosis (1) Seizure disorder, focal motor: (2) Hemiballismus: (3) Atrial fibrillation with RVR: Final Diagnosis Final Discharge Diagnosis: CVA was ruled out seizure disorder white matter looking consistent with vasogenic edematous changes in the right temporal lobe and right parietal lobe and also in the left parasagittal frontal lobe. This looks concerning for low gradeglioma or perhaps cerebritis/encephalitis which itself could be infectious, autoimmune, or paraneoplastic. workup ordered. Summary Hospital Course Hospital course: Mr. Traore is an 79-year-old male with unclear past medical history at this time who presents to the emergency department after being found down. In the emergency department, patient with a significantly elevated NIH score greater than 10. Initial CT of the head was obtained, and patient was notedto be outside of the thrombolytic window. He was also found to be in atrial fibrillation with RVR. He was given 5 mg IV Lopressor which flipped him back into sinus rhythm. BNP was elevated at 258 andinitial troponin was 36. CT of the head without contrast was noteworthy for area of concerning ischemia and CTAof the head and neck demonstrated right sided M3 MCA distal occlusion. Emergency room doctor discussed case with [place] [facility] and CT perfusion study was added. This did not demonstrate any area that was amenable to intervention. Patient was given 1 dose aspirin 325 mg. He was able to speaka little more clearly, but then patient had what appeared to be a focal seizure.ED attending and patient was recommended for discussion with neurology locally, Dr. Parks. She recommended CT of the head repeated which did not show any evidence of hemorrhage. He was admitted to the hospitalist service for further management. Seizure-Like Episode Hemiballismus -Continue with Keppra twice daily 1000 mg per neuro -Seizure precautions -Stroke workup including: MRI brain white matter looking consistent with vasogenic edematous changes in the right temporal lobe and right parietal lobe and also in the left parasagittal frontal lobe.This looks concerning for low grade glioma or perhaps cerebritis/encephalitis which itself could beinfectious, autoimmune, or paraneoplastic. Echocardiogram EF 50-55%, mild to modLVH, lipid panel reviewed, A1c 5.9, PT/OT/ST -CT chest, abdomen, and pelvis, with no evidence of occult malignancies. Atrial fibrillation with RVR- controlled rate -Started on Metoprolol -Started on Eliquis -Cardiology consulted. Input appreciated RLE skin lesion Pt [facility] -Currently on anticoagulation -Can be followed as outpatient. He has an appt in a week. As of today, patient remained hemodynamically stable. Patient is stable from neurology and cardiology standpoint for discharge. Discussed with patient and his friend at bedside, all questions answered. Condition Condition at Discharge: Stable Time Spent with Patient Time spent providing/coordinating discharge services (# min): 41 Discharge Plan Discharge Plan Patient Disposition: Rehab [facility] Activity: Ambulate as Tolerated Diet: Other Comment: Pureed solids and meats Additional Instructions: REHAB TO MANAGE: PT/OT to eval and treat Monitor VS per protocol--HTN Monitor Neuro. assessment--Seizures Monitor Cardiac assessment--Atrial fib Monitor voiding--pizano removed on 01/30 Please follow Speech Therapy recommendations-- *Thin liquids *Pureed solids and meats *Pills whole in applesauce *Sit upright at 90 degrees for all oral intake *Take small bites and sips *Pace/eat slowly Please maintain and educate on seizure precautions. Maintain high risk fall precautions Care to be managed by Rehab providers Prescriptions: New metoprolol succinate 50 mg Tablet Extended Release 24 Hr 50 mg PO DAILY 30 Days Qty: 30 2RF Eliquis 5 mg Tablet 5 mg PO BID 30 Days Qty: 60 3RF atorvastatin 80 mg Tablet 80 mg PO QPM 30 Days Qty: 30 3RF levetiracetam 500 mg Tablet 1,000 mg PO BID Qty: 0 0RF Continued lisinopril 20 mg Tablet levothyroxine 50 mcg Capsule PO DAILY Discontinued atorvastatin 20 mg Tablet Follow Up: [facility] [Outside] (Please call for an appointment when discharged from Rehab.) Jayme Pearce MD [Active Staff] - 04/17/25 1:00 pm Continuity of Care Document Health Concerns: A [facility] screening has identified you as FRAIL or AT RISK FOR FRAILTY. This puts you at a higher risk for infection, illness, falls,and other injuries. Here are four ways to help you reduce your risk of frailty: 1. IDENTIFY EARLY SIGNS OF FRAILTY ? Discuss contributing factors and concerns with your doctor 2. BE ACTIVE ? Walking and light strengthening exercises will help reduce weakness 3. EAT WELL ? Aim for three healthy meals a day that are high in protein 4. THINKPOSITIVE ? Keep your mind active by being sociable and continuing to learn References: Stay Strong:Four Ways to Beat the Frailty Risk [email or web address]://[email or web address]/fhyxrjun-loo-vjekusjcsr/st co-rjbgpn-jbpt- aohg-hx-nbrl-lzj-kgjpzdl-kpvv Exam Physical Exam Vital Signs: Temp Pulse Resp BP Pulse Ox O2 Del Method O2 Flow Rate 97.9 F 76 26 H 116/60 94 L Room Air 2 01/30/25 12:00 01/30/25 13:00 01/30/25 13:00 01/30/25 13:00 01/30/25 12:00 01/30/25 13:01/29/25 08:38 Narrative: Const General: cooperative HEENT Normal oropharyngeal mucosa without any ulcers or exudates Eyes: Conjunctiva normal Pulmonary Auscultation: clear to auscultation , no crackles, no wheezes Cardiovascular Rate: normal rate Rhythm: irregular rhythm Heart Sounds: S1 normal, S2 normal and no murmurs GI Inspection: non-distended Palpation: soft, not firm and nontender. No rigidity or rebound. Deferred Neuro General: alert, awake and oriented x3. his left sided weakness much improving, no obvious deficit. speech clear, tongue midline. Musculoskeletal: normal range of motion Extrem General: no cyanosis, no pedal edema Psych Appearance: appropriate affect. Grossly normal. Pleasant Documented By: Kofi Mauricio MD 01/30/25 16 18 Signed By: 01/30/25 1635 [facility]03-04-2025 Radiology Diagnostic study note [facility] [place] [address] [place], [place] [id number] CT Scan Report Signed Patient: Bailee Traore MR#: [id number] : 1945 Acct:[id number] Age/Sex: 79 / M ADM Date: 5 Loc: Room: [address] [place] [address] Type: ADM IN Attending Dr: Kofi Mauricio MD Copies to: DO Kofi Garcia MD~ Ordering Provider: Bartolome Amezquita DO Date of Service: 01/29/25 CT/CT chest w con: possible brain neoplasms ([id number]) CT/CT abdomen pelvis w con: possible brain neoplasms CT CHEST, ABDOMEN AND PELVIS WITH INTRAVENOUS CONTRAST: CLINICAL HISTORY: Metastatic workup, abnormal brain MRI COMPARISON: None TECHNIQUE: TECHNIQUE: Spiral images were obtained through the chest, abdomen and pelvis following the administration of IV contrast. This CT exam was performed using one or more following dose reduction techniques: Automated exposure control, adjustment of the mA and/or kV according to patient size, or use of iterative reconstruction technique. FINDINGS: CT chest: Mediastinum:Cardiomegaly with triple vessel coronary disease. Trace pericardialeffusion. No bulky mediastinal or hilar adenopathy. Lungs:Emphysematous changes with bibasilar interstitial opacities likely chronic. No confluent airspace consolidation effusion or pneumothorax. Soft tissues/Bones: Compression fractures noted T3, T5 and T11 and T12. T3 and T5 could be subacute, difficult to say with certainty on the provided exam. CT abdomen and pelvis: Organs:Arm positioning degrades evaluation.[. Liver, spleen, adrenals, kidneys, and pancreas are unremarkable. Cholelithiasis.[ GI: Moderate material within the stomach with increased density, please correlate with recent congestion. Moderate retained stool rectosigmoid junction represent impaction and/or constipation. Otherwise no evidence of bowel obstruction. Colonic diverticulosis noted. Pelvis:[Pizano catheter within the collapsed bladder. Prostate is grossly unremarkable.] Peritoneum/Retroperitoneum:Moderate plaque involving the aorta. The aorta to 2.8 cm in AP dimension.[ Abd wall/Bones:Multilevel compression deformities T12-L2 and L4-5.[These are favored to be chronic.Otherwise degenerative changes noted. Postsurgical changes right hip. CT/CT abdomen pelvis w con IMPRESSION: No definite evidence of metastatic disease or dominant mass lesion within the chest/abdomen/pelvis. High density material within the stomach, correlation with recent injection is strongly recommended. Multilevel compression deformities of the thoracolumbar spine as above with some of the thoracic levels possibly subacute in age, difficult to discern. Impression dictated by: Christiano Salinas M.D.01/29/2025 7:48 PM Dictation Location: [place] [address] Transcribed By: ROSA 01/29/251947 Dictated By: Christiano Salinas MD 01/29/251940 Signed By: 01/29/251947 [facility] Work Phone: 1(700) 167-181603-04-2025 Progress note Author Bartolome Amezquita [facility] Note Date/Time January 29, 2025 3:03 pm [facility] [address] [place] [address] Neurology Progress Note Signed Patient: Bailee Traore MR#: [id number] : 1945 Acct:[id number] Age/Sex: 79 / M Adm Date: 5 Loc: Room: [address] [place] [address] Type: ADM IN Attending Dr: Kofi Mauricio MD Copies to: ~ Date of Service: 01/29/2025 Exam Physical Exam Vital Signs: Temp Pulse Resp BP Pulse Ox O2 Del Method O2 Flow Rate 97.7 F 80 18 118/62 96 Room Air 2 01/29/25 08:38 01/29/25 14:34 01/29/25 14:34 01/29/25 14:34 01/29/25 14:34 01/29/25 14:34 01/29/25 08:38 Objective Vital Signs Vital Signs: Vital Signs - 24 hr 01/28/25 16:00 01/28/25 16:00 01/28/25 17:00 Temperature Pulse Rate 63 63 Respiratory Rate 16 16 Blood Pressure 97/63 L 98/63 L 02 Sat by Pulse Oximetry 96 98 Oxygen Delivery Method Room Air Room Air Room Air Oxygen Flow Rate 01/28/25 18:00 01/28/25 19:00 01/28/25 20:00 Temperature 98.4 F Pulse Rate 75 58 L 72 Respiratory Rate 16 16 18 Blood Pressure 111/67 139/58 L 143/72 H 02 Sat by Pulse Oximetry 96 97 97 Oxygen Delivery Method Room Air Room Air Room Air Oxygen Flow Rate 01/28/25 20:00 01/28/25 22:00 01/28/25 23:00 Temperature Pulse Rate 68 69 Respiratory Rate 11 L 13 Blood Pressure 165/73 H 146/64 H 02 Sat by Pulse Oximetry 95 95 Oxygen Delivery Method Room Air Room Air Room Air Oxygen Flow Rate 01/29/25 00:00 01/29/25 00:00 01/29/25 01:00 Temperature 98.2 F Pulse Rate 67 72 Respiratory Rate 14 16 Blood Pressure 122/57 L 122/86 02 Sat by Pulse Oximetry 97 95 Oxygen Delivery Method Room Air Room Air Room Air Oxygen Flow Rate 01/29/25 02:00 01/29/25 03:00 01/29/25 04:00 Temperature 98 F Pulse Rate 85 65 61 Respiratory Rate 13 12 13 Blood Pressure 143/69 H 111/69 148/75 H 02 Sat by Pulse Oximetry 94 L 95 99 Oxygen Delivery Method Room Air Room Air Nasal Cannula Oxygen Flow Rate 2 01/29/25 05:00 01/29/25 06:00 01/29/25 07:00 Temperature Pulse Rate 60 67 81 Respiratory Rate 15 16 18 Blood Pressure 149/65 H 161/72 H 189/84 H 02 Sat by Pulse Oximetry 99 99 100 Oxygen Delivery Method Nasal Cannula Nasal Cannula Nasal Cannula Oxygen Flow Rate 2 2 2 01/29/25 08:00 01/29/25 08:38 01/29/25 08:38 Temperature 97.7 F Pulse Rate 85 Respiratory Rate 18 Blood Pressure 171/70 H 02 Sat by Pulse Oximetry 99 Oxygen Delivery Method Nasal Cannula Room Air Nasal Cannula Oxygen Flow Rate 2 2 01/29/25 09:00 01/29/25 10:00 01/29/25 11:00 Temperature Pulse Rate 80 94 93 Respiratory Rate 18 18 20 Blood Pressure 132/61 125/68 127/56 L 02 Sat by Pulse Oximetry 99 98 100 Oxygen Delivery Method Room Air Room Air Room Air Oxygen Flow Rate 01/29/25 12:00 01/29/25 13:03 01/29/25 13:10 Temperature Pulse Rate 88 84 Respiratory Rate 22 22 Blood Pressure 116/62 114/66 02 Sat by Pulse Oximetry 93 L 98 Oxygen Delivery Method Room Air Room Air Room Air Oxygen Flow Rate 01/29/25 14:34 Temperature Pulse Rate 80 Respiratory Rate 18 Blood Pressure 118/62 02 Sat by Pulse Oximetry 96 Oxygen Delivery Method Room Air Oxygen Flow Rate Labs 01/28/25 04:48 01/29/25 06:27 Therapy Recommendations Therapy Recommendations: OT Recommendations OT Recommended Discharge Inpatient Rehab Unit Location PT Recommendations PT Recommended Discharge Care Home Facility,Inpatient Rehab Unit Location PT Recommended Services at Physical Therapy,Occupational Therapy,Speech Discharge Therapy ST Recommendations Level of Supervision Constant Supervision Liquid Consistency Thin Liquids Recommendation Solid Consistency Pureed Solids Recommendations Meat Consistency Pureed Meats Recommendations Medication Administration Whole Pills,Give Pills in Applesauce Dysphagia Swallow Precautions/ Sitting Upright (90 deg),Small Bites/Sips,Pacing Strategies /Slow-Rate ST Recommended Services at Speech Therapy Discharge Assessment/Plan (1) 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 He says sometimes the left arm does not seem to do quite what he wants itto. He spilled some ice cream on his bedside table here today because of it. He feels like his legs are working normally. He still seems somewhat slow to respond. EXAMINATION: In no distress. No deformities or trauma. Limbs seem well-perfused. No significant edema. Normal work of breathing. Visualized skin is generally intact and without lesions aside from age-related findings. Affect normal. He is alert. Attention somewhat impaired. Responses are slow or delayed. Speech is fluent and nondysarthric. Pupils are equal. Ocular motility is full. Visual schaeffer are full to finger counting. No nystagmus. Facial sensation is normal. Hearing is normal. Facial strength is normal. Tongue is midline. Muscle bulk, tone, and strength are normal. No tremors. No myoclonus. Light touch is intact. DATA REVIEW: -CT head shows hypodensity in the right parietotemporal region -CTA head and neck fairly unremarkable, the right M1 and M2 segments look okay but there might be some distal occlusions in the M3 segments -Routine EEG done on January 27, 2025 was with frequent right parietal sharp waves -MRI brain with and without contrast January 28, 2025 shows cortical-based diffusion restriction in the right parietal and occipital lobe and maybe the left parietal lobe. There is right temporal lobe signal abnormality worrisome for low-grade glioma. Also consider cerebritis/encephalitis. There is a left parasagittal frontal focus of T2 hyperintensity also concerning for low-grade glioma. ASSESSMENT: 79-year-old man. CT head January 26, 2025 showing hypodensity in the right parietotemporal area. He had a focal motor seizure involving the left upper extremity was witnessed in the emergency department. This is not a cerebrovascular event. There is cortical-based diffusion restriction overlying the right temporoparietal lobe(s) that I think reflects recent seizure activity. He has T2/FLAIR hyperintensity of the white matter looking consistent with vasogenic edematous changes in the right temporal lobe and right parietal lobe and also in the left parasagittal frontal lobe. 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 He has been afebrile. He is complaining of mild headache today. His routine EEG shows frequent right parietal sharp waves and he looks to still be at risk for seizure activity. PLAN: 1. I am increasing the levetiracetam from 750 mg to 1000 mg twice daily. Renalfunction is normal. 2. Obtaining CSF might be helpful. He is chronically on aspirin 81 mg daily and was placed on apixaban 5 mg twice daily for new onset atrial fibrillation. I will hold the aspirin now, as it should probably be held 5 days prior to this procedure. If we are planning to do the lumbar puncture we could hold the apixaban for a few days prior. 3. CT chest, abdomen, and pelvis, looking for any occult malignancies 4. 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, focal motor: Plan: (4) Hemiballismus: Plan: (5) Atrial fibrillation with RVR: Plan: Plan Documented By: Bartolome Amezquita, 01/29/25 1540 Signed By: <Electronically signed by Bartolome Amezquita DO> 01/29/25 1603 [facility] Work Phone: 1(630) 651-345103-04-[address] [address] Neurology Progress Note Signed Patient: Bailee Traore MR#: [id number] : 1945 Acct:[id number] Age/Sex: 79 / M Adm Date: 5 Loc: Room: [address] [place] [address] Type: ADM IN Attending Dr: Kofi Mauricio MD Copies to: ~ Date of Service: 01/29/2025 Exam Physical Exam Vital Signs: Temp Pulse Resp BP Pulse Ox O2 Del Method O2 Flow Rate 97.7 F 80 18 118/62 96 Room Air 2 01/29/25 08:38 01/29/25 14:34 01/29/25 14:34 01/29/25 14:34 01/29/25 14:34 01/29/25 14:34 01/29/25 08:38 Objective Vital Signs Vital Signs: Vital Signs - 24 hr 01/28/25 16:00 01/28/25 16:00 01/28/25 17:00 Temperature Pulse Rate 63 63 Respiratory Rate 16 16 Blood Pressure 97/63 L 98/63 L 02 Sat by Pulse Oximetry 96 98 Oxygen Delivery Method Room Air Room Air Room Air Oxygen Flow Rate 01/28/25 18:00 01/28/25 19:00 01/28/25 20:00 Temperature 98.4 F Pulse Rate 75 58 L 72 Respiratory Rate 16 16 18 Blood Pressure 111/67 139/58 L 143/72 H 02 Sat by Pulse Oximetry 96 97 97 Oxygen Delivery Method Room Air Room Air Room Air Oxygen Flow Rate 01/28/25 20:00 01/28/25 22:00 01/28/25 23:00 Temperature Pulse Rate 68 69 Respiratory Rate 11 L 13 Blood Pressure 165/73 H 146/64 H 02 Sat by Pulse Oximetry 95 95 Oxygen Delivery Method Room Air Room Air Room Air Oxygen Flow Rate 01/29/25 00:00 01/29/25 00:00 01/29/25 01:00 Temperature 98.2 F Pulse Rate 67 72 Respiratory Rate 14 16 Blood Pressure 122/57 L 122/86 02 Sat by Pulse Oximetry 97 95 Oxygen Delivery Method Room Air Room Air Room Air Oxygen Flow Rate 01/29/25 02:00 01/29/25 03:00 01/29/25 04:00 Temperature 98 F Pulse Rate 85 65 61 Respiratory Rate 13 12 13 Blood Pressure 143/69 H 111/69 148/75 H 02 Sat by Pulse Oximetry 94 L 95 99 Oxygen Delivery Method Room Air Room Air Nasal Cannula Oxygen Flow Rate 2 01/29/25 05:00 01/29/25 06:00 01/29/25 07:00 Temperature Pulse Rate 60 67 81 Respiratory Rate 15 16 18 Blood Pressure 149/65 H 161/72 H 189/84 H 02 Sat by Pulse Oximetry 99 99 100 Oxygen Delivery Method Nasal Cannula Nasal Cannula Nasal Cannula Oxygen Flow Rate 2 2 2 01/29/25 08:00 01/29/25 08:38 01/29/25 08:38 Temperature 97.7 F Pulse Rate 85 Respiratory Rate 18 Blood Pressure 171/70 H 02 Sat by Pulse Oximetry 99 Oxygen Delivery Method Nasal Cannula Room Air Nasal Cannula Oxygen Flow Rate 2 2 01/29/25 09:00 01/29/25 10:00 01/29/25 11:00 Temperature Pulse Rate 80 94 93 Respiratory Rate 18 18 20 Blood Pressure 132/61 125/68 127/56 L 02 Sat by Pulse Oximetry 99 98 100 Oxygen Delivery Method Room Air Room Air Room Air Oxygen Flow Rate 01/29/25 12:00 01/29/25 13:03 01/29/25 13:10 Temperature Pulse Rate 88 84 Respiratory Rate 22 22 Blood Pressure 116/62 114/66 02 Sat by Pulse Oximetry 93 L 98 Oxygen Delivery Method Room Air Room Air Room Air Oxygen Flow Rate 01/29/25 14:34 Temperature Pulse Rate 80 Respiratory Rate 18 Blood Pressure 118/62 02 Sat by Pulse Oximetry 96 Oxygen Delivery Method Room Air Oxygen Flow Rate Labs 01/28/25 04:48 01/29/25 06:27 Therapy Recommendations Therapy Recommendations: OT Recommendations OT Recommended Discharge Inpatient Rehab Unit Location PT Recommendations PT Recommended Discharge Care Home Facility,Inpatient Rehab Unit Location PT Recommended Services at Physical Therapy,Occupational Therapy,Speech Discharge Therapy ST Recommendations Level of Supervision Constant Supervision Liquid Consistency Thin Liquids Recommendation Solid Consistency Pureed Solids Recommendations Meat Consistency Pureed Meats Recommendations Medication Administration Whole Pills,Give Pills in Applesauce Dysphagia Swallow Precautions/ Sitting Upright (90 deg),Small Bites/Sips,Pacing Strategies /Slow-Rate ST Recommended Services at Speech Therapy Discharge Assessment/Plan (1) 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 He says sometimes the left arm does not seem to do quite what he wants itto. He spilled some ice cream on his bedside table here today because of it. He feels like his legs are working normally. He still seems somewhat slow to respond. EXAMINATION: In no distress. No deformities or trauma. Limbs seem well-perfused. No significant edema. Normal work of breathing. Visualized skin is generally intact and without lesions aside from age-related findings. Affect normal. He is alert. Attention somewhat impaired. Responses are slow or delayed. Speechis fluent and nondysarthric. Pupils are equal. Ocular motility is full. Visual schaeffer are full to finger counting. No nystagmus. Facial sensation is normal. Hearing is normal. Facial strength is normal. Tongue is midline. Muscle bulk, tone, and strength are normal. No tremors. No myoclonus. Light touch is intact. DATA REVIEW: -CT head shows hypodensity in the right parietotemporal region -CTA head and neck fairly unremarkable, the right M1 and M2 segments look okay but there might be some distal occlusions in the M3 segments -Routine EEG done on January 27, 2025 was with frequent right parietal sharp waves -MRI brain with and without contrast January 28, 2025 shows cortical-based diffusion restriction in the right parietal and occipital lobe and maybe the left parietal lobe. There is right temporal lobe signal abnormality worrisome for low-grade glioma. Also consider cerebritis/encephalitis. There is a left parasagittal frontal focus of T2 hyperintensity also concerning for low-grade glioma. ASSESSMENT: 79-year-old man. CT head January 26, 2025 showing hypodensity in the right parietotemporal area. He had a focal motor seizure involving the left upper extremity was witnessed in the emergency department. This is not a cerebrovascular event. There is cortical-based diffusion restriction overlying the right temporoparietal lobe(s) that I think reflects recent seizure activity. He has T2/FLAIR hyperintensity of the white matter looking consistent with vasogenic edematous changes in the right temporal lobe and right parietal lobe and also in the left parasagittal frontal lobe. 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 He has been afebrile. He is complaining of mild headache today. His routine EEG shows frequent right parietal sharp waves and he looks to still be at risk for seizure activity. PLAN: 1. I am increasing the levetiracetam from 750 mg to 1000 mg twice daily. Renalfunction is normal. 2. Obtaining CSF might be helpful. He is chronically on aspirin 81 mg daily and was placed on apixaban 5 mg twice daily for new onset atrial fibrillation. I will hold the aspirin now, as it should probably be held 5 days prior to this procedure. If we are planning to do the lumbar puncture we couldhold the apixaban for a few days prior. 3. CT chest, abdomen, and pelvis, looking for any occult malignancies 4. 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, focal motor: Plan: (4) Hemiballismus: Plan: (5) Atrial fibrillation with RVR: Plan: Plan Documented By: Bartolome Amezquita DO 01/29/25 1540 Signed By: 01/29/25 1603 [facility]03-04-2025 Progress note Author Kofi Mauricio [facility] Note Date/Time January 29, 2025 12:2 4pm [facility] [address] [place] [address] Hospitalist Progress Note Signed Patient: Bailee Traore MR#: [id number] : 1945 Acct:[id number] Age/Sex: 79 / M Adm Date: 5 Loc: Room: [address] [place] [address] Type: ADM IN Attending Dr: Kofi Mauricio MD Copies to: ~ Date of Service: 01/29/2025 Subjective Subjective Narrative: Patient is alert, awake, oriented x 3, mentation much better today, his left sided weakness also significantly improved. cardio consulted, patient was started on metoprolol,has been weaned off cardizem. Underwent MRI brain, pendingreport and final neuro recs. PT/OT following, plan rehab/SNF. Exam Physical Exam Vital Signs: Temp Pulse Resp BP Pulse Ox O2 Del Method O2 Flow Rate 97.7 F 84 22 114/66 98 Room Air 2 01/29/25 08:38 01/29/25 13:03 01/29/25 13:03 01/29/25 13:03 01/29/25 13:03 01/29/25 13:10 01/29/25 08:38 Narrative: Const General: cooperative HEENT Normal oropharyngeal mucosa without any ulcers or exudates Eyes: Conjunctiva normal Pulmonary Auscultation: clear to auscultation , no crackles, no wheezes Cardiovascular Rate: normal rate Rhythm: irregular rhythm Heart Sounds: S1 normal, S2 normal and no murmurs GI Inspection: non-distended Palpation: soft, not firm and nontender. No rigidity or rebound. Deferred Neuro General: alert, awake and oriented x3. his left sided weakness much improving, no obvious deficit. speech clear, tongue midline. Musculoskeletal: normal range of motion Extrem General: no cyanosis, no pedal edema Psych Appearance: appropriate affect. Grossly normal. Pleasant Objective Lab Results 01/28/25 04:48 01/29/25 06:27 Meds Allergies and Active Meds Allergies No Known Allergies Allergy (Verified 01/26/25 07:34) Active Meds: Active Medications Generic Name Dose Route Start Last Admin Trade Name Freq PRN Reason Stop Dose Admin Acetaminophen 650 mg 01/26/25 16:48 01/28/25 09:10 Acetaminophen 325 Mg Tablet PO 01/26/26 16:47 650 mg Q6HR PRN Administration Pain Scale 1 - 3 or fever Apixaban 5 mg 01/28/25 21:00 01/29/25 09:21 Apixaban 5 Mg Tablet PO 01/28/26 20:59 5 mg BID AL Administration Aspirin 81 mg 01/27/25 09:00 01/29/25 09:21 Aspirin 81 Mg Tab.Chew PO 01/27/26 08:59 81 mg DAILY AL Administration Atorvastatin Calcium 80 mg 01/26/25 21:00 01/28/25 22:10 Atorvastatin 80 Mg Tablet PO 01/26/26 20:59 80 mg QPM AL Administration Magnesium Sulfate 2 gm in 50 mls @ 25 mls/hr 01/26/25 16:48 Magnesium Sulf 2gm-*Swfi* IV 01/26/26 16:47 DAILY PRN Magnesium Level < 1.7 Levetiracetam 750 mg 01/28/25 21:00 01/29/25 09:21 Levetiracetam 250 Mg Tablet PO 01/28/26 20:59 750 mg BID AL Administration Lorazepam 1 mg 01/26/25 16:47 01/28/25 13:56 Lorazepam 2 Mg/Ml Vial IV-PUSH 1 mg Q5M PRN Administration Seizures Metoprolol Succinate 50 mg 01/29/25 09:00 01/29/25 09:21 Metoprolol Succinate 50 Mg Tab.Er.24h PO 01/29/26 08:59 50 mg DAILY AL Administration Ondansetron HCl 4 mg 01/26/25 16:48 Ondansetron 4 Mg/2 Ml Vial IV-PUSH 01/26/26 16:47 Q8H PRN Nausea And Vomiting Potassium Chloride 40 meq 01/26/25 16:48 01/28/25 13:57 Potassium Chloride Er 20 Meq Tab.Er.Prt PO 01/26/26 16:47 40 meq DAILY PRN Administration Hypokalemia Sodium Chloride 0 ml 01/26/25 07:29 01/26/25 10:40 Sodium Chloride 0.9 % 10 Ml Syringe IV-PUSH 01/26/26 07:28 10 ml PRN PRN Administration Flush Sodium Chloride 10 ml 01/26/25 16:47 Sodium Chloride 0.9 % 10 Ml Vial.Pf INJECTION 01/26/26 16:46 Q4H PRN Ativan dilution Sodium Chloride 0 ml 01/26/25 22:00 01/29/25 13:12 Sodium Chloride 0.9 % 10 Ml Syringe IV-PUSH 01/26/26 21:59 10 ml QSHIFT AL Administration A&P - Hospitalist Assessment/Plan (1) Stroke: Plan Seizure-Like Episode Hemiballismus -Continue with Keppra twice daily 750 mg -IV Ativan as needed for seizure-like episodes -Seizure precautions -Stroke workup including: MRI brain pending, echocardiogram EF 50-55%, mild to mod LVH, continued neuro-checks, lipid panel reviewed, A1c 5.9, PT/OT/ST Atrial fibrillation with RVR- controlled rate -Cardizem drip -Started on Eliquis -Cardiology consulted. Input appreciated -Metoprolol daily -Continue to monitor on telemetry RLE skin lesion [facility] -Currently on anticoagulation -Can be followed as outpatient. Hypertension?lisinopril on home list of medications. Monitor blood pressure closely. Will maintain permissive hypertension in the next 24 to 48 hours Hypothyroidism?TSH is mildly elevated, but free T4 is within normal limits. Patient unclear of what his home levothyroxine dose is Hyperlipidemia?check lipid panel. Reportedly on atorvastatin previously CODE STATUS: Full code. This is by default. Patient has a friend Mirza who is his primary contact. He [place] is not close with them. Patient's friend Mirza does have contact details of his family members DVT Ppx: Eliquis Discussed with patient and his friend at bedside, all questions answered Pending final neurology recs PT/OT recs for rehab/SNF Pending PreCert Discharge planning once arrangements are made Documented By: Kofi Mauricio MD 01/29/25 13 14 Signed By: <Electronically signed by Kofi Mauricio MD> 01/29/25 [facility] Work Phone: 1(556) 405-400503-04-2025 [place] [address] Hospitalist Progress Note Signed Patient: Bailee Traore MR#: [id number] : 1945 Acct:[id number] Age/Sex: 79 / M Adm Date: 5 Loc: Room: [address] [place] [address] Type: ADM IN Attending Dr: Kofi Mauricio MD Copies to: ~ Date of Service: 01/29/2025 Subjective Subjective Narrative: Patient is alert, awake, oriented x 3, mentation much better today, his left sided weakness also significantly improved. cardio consulted, patient was started on metoprolol,has been weaned off cardizem. Underwent MRI brain, pendingreport and final neuro recs. PT/OT following, plan rehab/SNF. Exam Physical Exam Vital Signs: Temp Pulse Resp BP Pulse Ox O2 Del Method O2 Flow Rate 97.7 F 84 22 114/66 98 Room Air 2 01/29/25 08:38 01/29/25 13:03 01/29/25 13:03 01/29/25 13:03 01/29/25 13:03 01/29/25 13:10 01/29/25 08:38 Narrative: Const General: cooperative HEENT Normal oropharyngeal mucosa without any ulcers or exudates Eyes: Conjunctiva normal Pulmonary Auscultation: clear to auscultation , no crackles, no wheezes Cardiovascular Rate: normal rate Rhythm: irregular rhythm Heart Sounds: S1 normal, S2 normal and no murmurs GI Inspection: non-distended Palpation: soft, not firm and nontender. No rigidity or rebound. Deferred Neuro General: alert, awake and oriented x3. his left sided weakness much improving, no obvious deficit. speech clear, tongue midline. Musculoskeletal: normal range of motion Extrem General: no cyanosis, no pedal edema Psych Appearance: appropriate affect. Grossly normal. Pleasant Objective Lab Results 01/28/25 04:48 01/29/25 06:27 Meds Allergies and Active Meds Allergies No Known Allergies Allergy (Verified 01/26/25 07:34) Active Meds: Active Medications Generic Name Dose Route Start Last Admin Trade Name Freq PRN Reason Stop Dose Admin Acetaminophen 650 mg 01/26/25 16:48 01/28/25 09:10 Acetaminophen 325 Mg Tablet PO 01/26/26 16:47 650 mg Q6HR PRN Administration Pain Scale 1 - 3 or fever Apixaban 5 mg 01/28/25 21:00 01/29/25 09:21 Apixaban 5 Mg Tablet PO 01/28/26 20:59 5 mg BID AL Administration Aspirin 81 mg 01/27/25 09:00 01/29/25 09:21 Aspirin 81 Mg Tab.Chew PO 01/27/26 08:59 81 mg DAILY AL Administration Atorvastatin Calcium 80 mg 01/26/25 21:00 01/28/25 22:10 Atorvastatin 80 Mg Tablet PO 01/26/26 20:59 80 mg QPM AL Administration Magnesium Sulfate 2 gm in 50 mls @ 25 mls/hr 01/26/25 16:48 Magnesium Sulf 2gm-*Swfi* IV 01/26/26 16:47 DAILY PRN Magnesium Level < 1.7 Levetiracetam 750 mg 01/28/25 21:00 01/29/25 09:21 Levetiracetam 250 Mg Tablet PO 01/28/26 20:59 750 mg BID AL Administration Lorazepam 1 mg 01/26/25 16:47 01/28/25 13:56 Lorazepam 2 Mg/Ml Vial IV-PUSH 1 mg Q5M PRN Administration Seizures Metoprolol Succinate 50 mg 01/29/25 09:00 01/29/25 09:21 Metoprolol Succinate 50 Mg Tab.Er.24h PO 01/29/26 08:59 50 mg DAILY AL Administration Ondansetron HCl 4 mg 01/26/25 16:48 Ondansetron 4 Mg/2 Ml Vial IV-PUSH 01/26/26 16:47 Q8H PRN Nausea And Vomiting Potassium Chloride 40 meq 01/26/25 16:48 01/28/25 13:57 Potassium Chloride Er 20 Meq Tab.Er.Prt PO 01/26/26 16:47 40 meq DAILY PRN Administration Hypokalemia Sodium Chloride 0 ml 01/26/25 07:29 01/26/25 10:40 Sodium Chloride 0.9 % 10 Ml Syringe IV-PUSH 01/26/26 07:28 10 ml PRN PRN Administration Flush Sodium Chloride 10 ml 01/26/25 16:47 Sodium Chloride 0.9 % 10 Ml Vial.Pf INJECTION 01/26/26 16:46 Q4H PRN Ativan dilution Sodium Chloride 0 ml 01/26/25 22:00 01/29/25 13:12 Sodium Chloride 0.9 % 10 Ml Syringe IV-PUSH 01/26/26 21:59 10 ml QSHIFT AL Administration A&P - Hospitalist Assessment/Plan (1) Stroke: Plan Seizure-Like Episode Hemiballismus -Continue with Keppra twice daily 750 mg -IV Ativan as needed for seizure-like episodes -Seizure precautions -Stroke workup including: MRI brain pending, echocardiogram EF 50-55%, mild to mod LVH, continued neuro-checks, lipid panel reviewed, A1c 5.9, PT/OT/ST Atrial fibrillation with RVR- controlled rate -Cardizem drip -Started on Eliquis -Cardiology consulted. Input appreciated -Metoprolol daily -Continue to monitor on telemetry RLE skin lesion [facility] -Currently on anticoagulation -Can be followed as outpatient. Hypertension?lisinopril on home list of medications. Monitor blood pressure closely. Will maintain permissive hypertension in the next 24 to 48 hours Hypothyroidism?TSH is mildly elevated, but free T4 is within normal limits. Patient unclear of whathis home levothyroxine dose is Hyperlipidemia?check lipid panel. Reportedly on atorvastatin previously CODE STATUS: Full code. This is by default. Patient has a friend Mirza who is his primary contact. [place], [place] close with them. Patient's friend Mirza does have contact details of his family members DVT Ppx: Eliquis Discussed with patient and his friend at bedside, all questions answered Pending final neurology recs PT/OT recs for rehab/SNF Pending PreCert Discharge planning once arrangements are made Documented By: Kofi Mauricio MD 01/29/25 13 14 Signed By: 01/29/25 1324 [facility]03-03-2025 Progress note Author Bartolome Amezquita [facility] Note Date/Time January 28, 2025 4:42 pm [facility] [address] [place] [address] Neurology Progress Note Signed Patient: Bailee Traore MR#: [id number] : 1945 Acct:[id number] Age/Sex: 79 / M Adm Date: 5 Loc: Room: [address] [place] [address] Type: ADM IN Attending Dr: Kofi Mauricio MD Copies to: ~ Date of Service: 01/28/2025 Exam Physical Exam Vital Signs: Temp Pulse Resp BP Pulse Ox O2 Del Method O2 Flow Rate 98.1 F 63 16 98/63 L 98 Room Air 2 01/28/25 04:00 01/28/25 17:00 01/28/25 17:00 01/28/25 17:00 01/28/25 17:00 01/28/25 17:00 01/28/25 11:00 Objective Vital Signs Vital Signs: Vital Signs - 24 hr 01/27/25 18:00 01/27/25 19:00 01/27/25 20:00 Temperature Pulse Rate 85 79 Respiratory Rate 16 16 Blood Pressure 120/69 02 Sat by Pulse Oximetry 95 95 Oxygen Delivery Method Room Air Room Air Room Air Oxygen Flow Rate 01/27/25 20:00 01/27/25 21:00 01/27/25 22:00 Temperature 98.2 F Pulse Rate 78 82 160 H Respiratory Rate 18 19 19 Blood Pressure 146/73 H 131/60 139/82 02 Sat by Pulse Oximetry 96 98 96 Oxygen Delivery Method Room Air Room Air Nasal Cannula Oxygen Flow Rate 2 01/27/25 23:00 01/28/25 00:00 01/28/25 00:00 Temperature 98 F Pulse Rate 89 82 Respiratory Rate 21 15 Blood Pressure 126/87 132/69 02 Sat by Pulse Oximetry 96 100 Oxygen Delivery Method Nasal Cannula Nasal Cannula Room Air Oxygen Flow Rate 2 2 01/28/25 00:00 01/28/25 01:00 01/28/25 02:00 Temperature Pulse Rate 82 78 Respiratory Rate 14 16 Blood Pressure 115/60 109/74 02 Sat by Pulse Oximetry 98 97 Oxygen Delivery Method Nasal Cannula Nasal Cannula Nasal Cannula Oxygen Flow Rate 2 2 2 01/28/25 03:00 01/28/25 04:00 01/28/25 04:00 Temperature 98.1 F Pulse Rate 76 75 Respiratory Rate 16 15 Blood Pressure 122/62 125/68 02 Sat by Pulse Oximetry 98 98 Oxygen Delivery Method Nasal Cannula Nasal Cannula Room Air Oxygen Flow Rate 2 2 01/28/25 05:00 01/28/25 05:55 01/28/25 06:00 Temperature Pulse Rate 83 154 H 141 H Respiratory Rate 15 17 Blood Pressure 156/70 H 156/70 H 115/70 02 Sat by Pulse Oximetry 100 97 Oxygen Delivery Method Nasal Cannula Nasal Cannula Oxygen Flow Rate 2 01/28/25 07:00 01/28/25 08:00 01/28/25 08:00 Temperature Pulse Rate 96 123 H Respiratory Rate 14 20 Blood Pressure 151/83 H 137/67 02 Sat by Pulse Oximetry 98 98 Oxygen Delivery Method Nasal Cannula Room Air Nasal Cannula Oxygen Flow Rate 2 01/28/25 09:00 01/28/25 10:00 01/28/25 11:00 Temperature Pulse Rate 86 85 90 Respiratory Rate 18 18 18 Blood Pressure 110/58 L 111/61 130/75 02 Sat by Pulse Oximetry 98 98 Oxygen Delivery Method Nasal Cannula Nasal Cannula Oxygen Flow Rate 2 2 01/28/25 11:55 01/28/25 12:00 01/28/25 13:00 Temperature Pulse Rate 84 84 91 Respiratory Rate 18 18 Blood Pressure 100/57 L 115/57 L 95/54 L 02 Sat by Pulse Oximetry Oxygen Delivery Method Oxygen Flow Rate 01/28/25 14:00 01/28/25 15:00 01/28/25 16:00 Temperature Pulse Rate 71 66 63 Respiratory Rate 16 16 16 Blood Pressure 94/58 L 118/57 L 97/63 L 02 Sat by Pulse Oximetry 95 96 96 Oxygen Delivery Method Room Air Room Air Room Air Oxygen Flow Rate 01/28/25 17:00 Temperature Pulse Rate 63 Respiratory Rate 16 Blood Pressure 98/63 L 02 Sat by Pulse Oximetry 98 Oxygen Delivery Method Room Air Oxygen Flow Rate Labs 01/28/25 04:48 01/28/25 04:48 Lab Results: 01/27/25 05:01: Hemoglobin A1c 5.9 H Therapy Recommendations Therapy Recommendations: OT Recommendations OT Recommended Discharge Inpatient Rehab Unit Location PT Recommendations PT Recommended Discharge Care Home Facility,Inpatient Rehab Unit Location PT Recommended Services at Physical Therapy,Occupational Therapy,Speech Discharge Therapy ST Recommendations Level of Supervision Constant Supervision Liquid Consistency Thin Liquids Recommendation Solid Consistency Pureed Solids Recommendations Meat Consistency Pureed Meats Recommendations Medication Administration Whole Pills,Give Pills in Applesauce Dysphagia Swallow Precautions/ Sitting Upright (90 deg),Small Bites/Sips,Pacing Strategies /Slow-Rate ST Recommended Services at Speech Therapy Discharge Assessment/Plan (1) 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 Feels like his arms are equally strong. He is fairly drowsy and seems slow to respond. Attention is impaired and he can tend to gloss over or required redirection. EXAMINATION: In no distress. No deformities or trauma. Limbs seem well-perfused. No significant edema. Normal work of breathing. Visualized skin is generally intact and without lesions. Affect normal. Patient is alert and generally oriented. Attention normal. Speech is fluent and nondysarthric. Pupils are equal. Ocular motility is full. No nystagmus. Facial sensation is normal. Hearing is normal. Facial strength is normal. Tongue is midline. Muscle bulk,tone, and strength are normal. No tremors. No myoclonus. Light touch is intact. DATA REVIEW: -CT head shows -CTA head and neck fairly unremarkable, the right M1 and M2 segments look okay but there might be some distal occlusions in the M3 segments -Routine EEG done on January 27, 2025 was with frequent right parietal sharp waves ASSESSMENT: 79-year-old man. He was seen in the emergency department January 26, 2025 around 7:[address] head showing hypodensity in the right parietotemporal area. He hada focal motor seizure involving the left upper extremity was witnessed in the emergency department. At the time of my encounter, he generally does not seem to have any focal neurological deficits pertaining to strength or sensation on the left side of his body. The hypodensity looks like vasogenic edema. I have some concern for underlying neoplasm. Otherwise ischemia would be the main consideration. The right M1 andM2 segments look okay but there was questionable occlusion of small arteries. His routine EEG shows frequent right parietal sharp waves and he looks to still be at risk for seizure activity. PLAN: 1. I increased the levetiracetam from 500 mg twice daily to 750 mg twice daily 2. MRI brain with and without contrast 3. He was started on aspirin 81 mg daily 4. He was found to be in new onset atrial fibrillation. I need MR imaging to make an informed decision about size of lesion or infarct and when therapeutic anticoagulation could be considered. 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, focal motor: Plan: (4) Hemiballismus: Plan: (5) Atrial fibrillation with RVR: Plan: Plan Documented By: Bartolome Amezquita DO 01/28/25 3590 Signed By: <Electronically signed by Bartolome Amezquita DO> 01/28/25 5205 [facility] Work Phone: 1(660) 671-465703-03-2025 [place] [address] Neurology Progress Note Signed Patient: Bailee Traore MR#: [id number] : 1945 Acct:[id number] Age/Sex: 79 / M Adm Date: 5 Loc: Room: [address] [place] [address] Type: ADM IN Attending Dr: Kofi Mauricio MD Copies to: ~ Date of Service: 01/28/2025 Exam Physical Exam Vital Signs: Temp Pulse Resp BP Pulse Ox O2 Del Method O2 Flow Rate 98.1 F 63 16 98/63 L 98 Room Air 2 01/28/25 04:00 01/28/25 17:00 01/28/25 17:00 01/28/25 17:00 01/28/25 17:00 01/28/25 17:00 01/28/25 11:00 Objective Vital Signs Vital Signs: Vital Signs - 24 hr 01/27/25 18:00 01/27/25 19:00 01/27/25 20:00 Temperature Pulse Rate 85 79 Respiratory Rate 16 16 Blood Pressure 120/69 02 Sat by Pulse Oximetry 95 95 Oxygen Delivery Method Room Air Room Air Room Air Oxygen Flow Rate 01/27/25 20:00 01/27/25 21:00 01/27/25 22:00 Temperature 98.2 F Pulse Rate 78 82 160 H Respiratory Rate 18 19 19 Blood Pressure 146/73 H 131/60 139/82 02 Sat by Pulse Oximetry 96 98 96 Oxygen Delivery Method Room Air Room Air Nasal Cannula Oxygen Flow Rate 2 01/27/25 23:00 01/28/25 00:00 01/28/25 00:00 Temperature 98 F Pulse Rate 89 82 Respiratory Rate 21 15 Blood Pressure 126/87 132/69 02 Sat by Pulse Oximetry 96 100 Oxygen Delivery Method Nasal Cannula Nasal Cannula Room Air Oxygen Flow Rate 2 2 01/28/25 00:00 01/28/25 01:00 01/28/25 02:00 Temperature Pulse Rate 82 78 Respiratory Rate 14 16 Blood Pressure 115/60 109/74 02 Sat by Pulse Oximetry 98 97 Oxygen Delivery Method Nasal Cannula Nasal Cannula Nasal Cannula Oxygen Flow Rate 2 2 2 01/28/25 03:00 01/28/25 04:00 01/28/25 04:00 Temperature 98.1 F Pulse Rate 76 75 Respiratory Rate 16 15 Blood Pressure 122/62 125/68 02 Sat by Pulse Oximetry 98 98 Oxygen Delivery Method Nasal Cannula Nasal Cannula Room Air Oxygen Flow Rate 2 2 01/28/25 05:00 01/28/25 05:55 01/28/25 06:00 Temperature Pulse Rate 83 154 H 141 H Respiratory Rate 15 17 Blood Pressure 156/70 H 156/70 H 115/70 02 Sat by Pulse Oximetry 100 97 Oxygen Delivery Method Nasal Cannula Nasal Cannula Oxygen Flow Rate 2 01/28/25 07:00 01/28/25 08:00 01/28/25 08:00 Temperature Pulse Rate 96 123 H Respiratory Rate 14 20 Blood Pressure 151/83 H 137/67 02 Sat by Pulse Oximetry 98 98 Oxygen Delivery Method Nasal Cannula Room Air Nasal Cannula Oxygen Flow Rate 2 01/28/25 09:00 01/28/25 10:00 01/28/25 11:00 Temperature Pulse Rate 86 85 90 Respiratory Rate 18 18 18 Blood Pressure 110/58 L 111/61 130/75 02 Sat by Pulse Oximetry 98 98 Oxygen Delivery Method Nasal Cannula Nasal Cannula Oxygen Flow Rate 2 2 01/28/25 11:55 01/28/25 12:00 01/28/25 13:00 Temperature Pulse Rate 84 84 91 Respiratory Rate 18 18 Blood Pressure 100/57 L 115/57 L 95/54 L 02 Sat by Pulse Oximetry Oxygen Delivery Method Oxygen Flow Rate 01/28/25 14:00 01/28/25 15:00 01/28/25 16:00 Temperature Pulse Rate 71 66 63 Respiratory Rate 16 16 16 Blood Pressure 94/58 L 118/57 L 97/63 L 02 Sat by Pulse Oximetry 95 96 96 Oxygen Delivery Method Room Air Room Air Room Air Oxygen Flow Rate 01/28/25 17:00 Temperature Pulse Rate 63 Respiratory Rate 16 Blood Pressure 98/63 L 02 Sat by Pulse Oximetry 98 Oxygen Delivery Method Room Air Oxygen Flow Rate Labs 01/28/25 04:48 01/28/25 04:48 Lab Results: 01/27/25 05:01: Hemoglobin A1c 5.9 H Therapy Recommendations Therapy Recommendations: OT Recommendations OT Recommended Discharge Inpatient Rehab Unit Location PT Recommendations PT Recommended Discharge Care Home Facility,Inpatient Rehab Unit Location PT Recommended Services at Physical Therapy,Occupational Therapy,Speech Discharge Therapy ST Recommendations Level of Supervision Constant Supervision Liquid Consistency Thin Liquids Recommendation Solid Consistency Pureed Solids Recommendations Meat Consistency Pureed Meats Recommendations Medication Administration Whole Pills,Give Pills in Applesauce Dysphagia Swallow Precautions/ Sitting Upright (90 deg),Small Bites/Sips,Pacing Strategies /Slow-Rate ST Recommended Services at Speech Therapy Discharge Assessment/Plan (1) 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 Feels like his arms are equally strong. He is fairly drowsy and seems slow to respond. Attention is impaired and he can tend to gloss over or required redirection. EXAMINATION: In no distress. No deformities or trauma. Limbs seem well-perfused. No significant edema. Normal work of breathing. Visualized skin is generally intact and without lesions. Affect normal. Patient is alert and generally oriented. Attention normal. Speech is fluent and nondysarthric. Pupils are equal. Ocular motility is full. No nystagmus. Facial sensation is normal. Hearing is normal. Facial strength is normal. Tongue is midline. Muscle bulk,tone, and strength are normal. No tremors. No myoclonus. Light touch is intact. DATA REVIEW: -CT head shows -CTA head and neck fairly unremarkable, the right M1 and M2 segments look okay but there might be some distal occlusions in the M3 segments -Routine EEG done on January 27, 2025 was with frequent right parietal sharp waves ASSESSMENT: 79-year-old man. He was seen in the emergency department January 26, 2025 around 7:[address] head showing hypodensity in the right parietotemporal area. He hada focal motor seizure involving the left upper extremity was witnessed in the emergency department. At the time of my encounter, he generally does not seem to have any focal neurological deficits pertaining to strength or sensation on the left side of his body. The hypodensity looks like vasogenic edema. I have some concern for underlying neoplasm. Otherwise ischemia would be the main consideration. The right M1 andM2 segments look okay but there was questionable occlusion of small arteries. His routine EEG shows frequent right parietal sharp waves and he looks to still be at risk for seizure activity. PLAN: 1. I increased the levetiracetam from 500 mg twice daily to 750 mg twice daily 2. MRI brain with and without contrast 3. He was started on aspirin 81 mg daily 4. He was found to be in new onset atrial fibrillation. I need MR imaging to make an informed decision about size of lesion or infarct and when therapeutic anticoagulation could be considered. 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, focal motor: Plan: (4) Hemiballismus: Plan: (5) Atrial fibrillation with RVR: Plan: Plan Documented By: Bartolome Amezquita DO 01/28/25 2172 Signed By: 01/28/25 9416 [facility]03-03-2025 Progress note Author Kofi Mauricio [facility] Note Date/Time January 28, 2025 2:07 pm [facility] [address] [place] [address] Hospitalist Progress Note Signed Patient: Bailee Traore MR#: [id number] : 1945 Acct:[id number] Age/Sex: 79 / M Adm Date: 5 Loc: Room: [address] [place] [address] Type: ADM IN Attending Dr: Kofi Mauricio MD Copies to: ~ Date of Service: 01/28/2025 Subjective Subjective Narrative: Patient is alert, awake, oriented to self, went in afib with RVR overnight, started on cardizem drip. Patient has involuntary movement in the left upper extremity, where occasionally he keeps his arm raised and does not notice that he is doing it. He was able to work with PT/OT/ST today. Exam Physical Exam Vital Signs: Temp Pulse Resp BP Pulse Ox O2 Del Method O2 Flow Rate 98.1 F 71 16 94/58 L 95 Room Air 2 01/28/25 04:00 01/28/25 14:00 01/28/25 14:00 01/28/25 14:00 01/28/25 14:00 01/28/25 14:00 01/28/25 11:00 Narrative: Const General: cooperative HEENT Normal oropharyngeal mucosa without any ulcers or exudates Eyes: Conjunctiva normal Pulmonary Auscultation: clear to auscultation , no crackles, no wheezes Cardiovascular Rate: normal rate Rhythm: irregular rhythm Heart Sounds: S1 normal, S2 normal and no murmurs GI Inspection: non-distended Palpation: soft, not firm and nontender. No rigidity or rebound. Deferred Neuro General: alert, awake and oriented. No obvious new focal deficit Musculoskeletal: normal range of motion Extrem General: no cyanosis, no pedal edema Psych Appearance: appropriate affect. Grossly normal Objective Lab Results 01/28/25 04:48 01/28/25 04:48 Meds Allergies and Active Meds Allergies No Known Allergies Allergy (Verified 01/26/25 07:34) Active Meds: Active Medications Generic Name Dose Route Start Last Admin Trade Name Freq PRN Reason Stop Dose Admin Acetaminophen 650 mg 01/26/25 16:48 01/28/25 09:10 Acetaminophen 325 Mg Tablet PO 01/26/26 16:47 650 mg Q6HR PRN Administration Pain Scale 1 - 3 or fever Apixaban 5 mg 01/28/25 21:00 Apixaban 5 Mg Tablet PO 01/28/26 20:59 BID AL Aspirin 81 mg 01/27/25 09:00 01/28/25 09:07 Aspirin 81 Mg Tab.Chew PO 01/27/26 08:59 81 mg DAILY AL Administration Atorvastatin Calcium 80 mg 01/26/25 21:00 01/27/25 21:14 Atorvastatin 80 Mg Tablet PO 01/26/26 20:59 80 mg QPM AL Administration Magnesium Sulfate 2 gm in 50 mls @ 25 mls/hr 01/26/25 16:48 Magnesium Sulf 2gm-*Swfi* IV 01/26/26 16:47 DAILY PRN Magnesium Level < 1.7 Levetiracetam 500 mg 01/27/25 21:00 01/28/25 09:07 Levetiracetam 500 Mg Tablet PO 01/27/26 20:59 500 mg BID AL Administration Lorazepam 1 mg 01/26/25 16:47 01/28/25 13:56 Lorazepam 2 Mg/Ml Vial IV-PUSH 1 mg Q5M PRN Administration Seizures Metoprolol Succinate 50 mg 01/29/25 09:00 Metoprolol Succinate 50 Mg Tab.Er.24h PO 01/29/26 08:59 DAILY AL Ondansetron HCl 4 mg 01/26/25 16:48 Ondansetron 4 Mg/2 Ml Vial IV-PUSH 01/26/26 16:47 Q8H PRN Nausea And Vomiting Potassium Chloride 40 meq 01/26/25 16:48 01/28/25 13:57 Potassium Chloride Er 20 Meq Tab.Er.Prt PO 01/26/26 16:47 40 meq DAILY PRN Administration Hypokalemia Sodium Chloride 0 ml 01/26/25 07:29 01/26/25 10:40 Sodium Chloride 0.9 % 10 Ml Syringe IV-PUSH 01/26/26 07:28 10 ml PRN PRN Administration Flush Sodium Chloride 10 ml 01/26/25 16:47 Sodium Chloride 0.9 % 10 Ml Vial.Pf INJECTION 01/26/26 16:46 Q4H PRN Ativan dilution Sodium Chloride 0 ml 01/26/25 22:00 01/28/25 05:55 Sodium Chloride 0.9 % 10 Ml Syringe IV-PUSH 01/26/26 21:59 10 ml QSHIFT AL Administration A&P - Hospitalist Assessment/Plan (1) Stroke: Plan Acute MCA CVA Seizure-Like Episode Hemiballismus Patient appears to be in a postictal state on my assessment at bedside. CT angioimaging is noteworthy for possibly large R MCA stroke. -Continue with Keppra twice daily 500 mg -IV Ativan as needed for seizure-like episodes -Seizure precautions -Stroke workup including: MRI brain, echocardiogram, continued neuro-checks, lipid panel reviewd, A1c 5.9, PT/OT/ST Pulmonary Edema Possible Acute Heart Failure Does not appear to have any history that clearly shows heart failure. Chest x- ray does demonstrate volume overload bilaterally EKG did not demonstrate acute ischemic changes but did show A-fib with RVR. Received 1 dose IV diuretic emergency department -Decreased diuretics to 40 mg IV Lasix daily, from BID -Follow-up echocardiogram - cardiology consulted for their assessment, input appreciated. -Monitor on telemetry -Strict intake and output, daily weights Atrial fibrillation with RVR -Went in RVR overnight. restarted on cardizem drip -Continue full dose Lovenox every 12 hours, cardio recommended Eliquis. - cardiology consulted -Continue to monitor on telemetry -Obtain echocardiogram Likely basal cell carcinoma lesion on the medial right joyce [facility]. Will likely be hereat this time. -Currently on anticoagulation with full dose Lovenox -Consider general surgery consult for removal during this hospitalization/outpatient, holding for now Hypertension?lisinopril on home list of medications. Monitor blood pressure closely. Will maintain permissive hypertension in the next 24 to 48 hours Hypothyroidism?TSH is mildly elevated, but free T4 is within normal limits. Patient unclear of what his home levothyroxine dose is Hyperlipidemia?check lipid panel. Reportedly on atorvastatin previously CODE STATUS: Full code. This is by default. Patient has a friend Mirza who is his primary contact. He does have [place], but he is not close with them. Patient's friend Mirza does have contact details of his family members DVT Ppx: Full-dose Lovenox Discussed with patient Documented By: Kofi Mauricio MD 01/28/25 15 01 Signed By: <Electronically signed by Kofi Mauricio MD> 01/28/25 1501 [facility] Work Phone: 1(354) 766-508403-03-2025 Consult note Author Oren Lara [facility] Note Date/Time January 28, 2025 12:3 8pm [facility] [address] [place] [address] Physiatry (Rehab) Consult Note Signed Patient: Bailee Traore MR#: [id number] : 1945 Acct:[id number] Age/Sex: 79 / M Adm Date: 5 Loc: Room: [address] [place] [address] Type: ADM IN Attending Dr: Kofi Mauricio MD Copies to: MD Lucille Vaughan DO Obaydah M Daromar, MD~ HPI Consult Date: 01/28/25 Requesting Physician: Kofi Mauricio MD Primary Care Provider: Lucille Engel (Clinic)DO [facility] Consult Narrative Reason for consult: Evaluation for inpatient rehab HPI: Mr. Traore is a 79 year old male who presents with multifactorial functional decline in the setting of an acute CVA. Per chart review, the patient was found down at home. Upon presentation to the hospital, NIH score was 10. CT head demonstrating developing right MCA occlusion with corresponding infarct. Did notreceive thrombolytic therapy due to unknown timeline. Was also noted to be in afib with RVR on presentation and was given 5 mg IV Lopressor with conversion back to NSR. He also was noted to have a focal seizure. Has since been started on Keppra and PRN Ativan. He is also on IV Cardizem due to persistent afib with RVR. I met with the patient today. He is sitting up in bed. Conversant. Unable to provide much history. It does sound like he was quite independent prior to presentation. Lives alone. 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 He has been noticing that he is having abnormal movements. Documented possible hemiballismus. I discussed IRF with the patient. He is agreeable. Review of Systems Review of Systems All other systems reviewed & are negative unless noted below or in HPI [facility] Medical History Thyroid disorder Problem List clean-up per request of Phys. EHR Cmte HTN (hypertension) Problem List clean-up per request of Phys. EHR [facility] Surgical History Hx of knee surgery Problem List clean-up per request of Phys. EHR [facility] Social History Smoking Status: Former smoker Tobacco Type: pipe and cigars Substance Use Type: None Substance Abuse Comment: unable to assess Social History Comments: unable to assess Meds Medications and Allergies Allergies No Known Allergies Allergy (Verified 01/26/25 07:34) Home Medications atorvastatin 20 mg tablet mg 08/29/21 [History Confirmed 08/29/21] levothyroxine 50 mcg capsule mcg PO DAILY 08/29/21 [History] lisinopril 20 mg tablet mg 08/29/21 [History] Exam Physical Exam Vital Signs: Temp Pulse Resp BP Pulse Ox O2 Del Method O2 Flow Rate 98.1 F 84 18 115/57 L 98 Nasal Cannula 2 01/28/25 04:00 01/28/25 12:00 01/28/25 12:00 01/28/25 12:00 01/28/25 11:00 01/28/25 11:00 01/28/25 11:00 Narrative: NAD. Sitting up in bed Extremities well perfused No respiratory distress Abdomen soft, non tender BAILEY. left sided weakness left hemiballismus is appreciated Speech is clear, fluent. Results - Phys. Rehab Labs Labs: Laboratory Results - last 24 hr 01/27/25 01/28/25 05:01 04:48 Corrected WBC 6.4 Uncorrected WBC Count 6.4 RBC 5.18 Hgb 15.1 Hct 44.4 MCV 85.6 MCH 29.1 MCHC 34.0 RDW 14.1 Plt Count 162 MPV 8.3 Neut % (Auto) 57.6 Lymph % (Auto) 27.6 Meade % (Auto) 11.6 Eos % (Auto) 2.0 Baso % (Auto) 1.2 Nucleat RBC Rel Count 0.1 Neut # (Auto) 3.7 Lymph # (Auto) 1.8 Meade # (Auto) 0.7 Eos # (Auto) 0.1 Baso # (Auto) 0.1 PHA Creatinine Clear 64.43 Sodium 139 Potassium 3.2 L Chloride 98 Carbon Dioxide 33.8 H Anion Gap 10.4 BUN 21 Creatinine 0.87 Est GFR (CKD-EPI) > 60.0 Glucose 109 H Estimat Average Glucose 123 Hemoglobin A1c 5.9 H Calcium 9.4 Assessment/Plan (1) 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 He has continued impaired mobility and impaired independence with ADLs and IADLs requiring PT/OT/CONSTRUCTION OR [employer]ER 5-7 days/week 3 hours/day to maximize safety and independence with functional ability and self-care. Primary Rehabilitation Diagnosis: Right MCA CVA Patient is appropriate for acute inpatient rehab facility once medically stable per primary service and consultants. The patient has functional deficits requiring both active and ongoing therapeutic intervention of at least 2 disciplines of therapy, physical therapy/Occupational Therapy +/- speech therapy. Patient has worked appropriately with multiple disciplines of therapy on acute care, and demonstrates ability to tolerate and participate and make reasonable gains with at least a 15 hour/week inpatient rehabilitation program. Due to medical complexity as noted, rehabilitation physician supervision is both reasonable and necessary, including [id number] visits at least 3 days/week with the need to treat, manage and modify course of treatment, including participating in at least once weekly interdisciplinary team conferences. The patient requires multidisciplinary rehabilitation treatment including rehabilitation physician at least 3 times per week, 24-hour rehabilitation nursing, physical occupational therapy, plus/minus speech-language pathology, rehabilitation case management, nutrition services, plus minus rehabilitation psychology. This case cannot be best/most appropriately managed at a lower level of care. Estimated length of rehabilitation stay: 17 Days Prior Level of Function: IND Expected functional status at discharge from rehab: Self-care (ADLs) : Mod I Bed Mobility/Transfers: Mod I Ambulation: Mod I Cognition: Mod I Swallowing: Mod I There is a reasonable plan in place for discharge to the community. Overall prognosis is fair to good to make functional gains that would make substantial difference in the eventual discharge setting. Patient was personally seen by me, Dr. Lara, on the day of encounter, reviewed the history and the relevant portions of the chart, including current orders, allied health and search engine optimization consultant notes, labs/imaging and performed bender elements of exam and I formulated the plan of care and facilitated the medical decision making. I completed a substantive portion of this encounter, the medical decision making portion of this note in its entirety, including Allied health note review, nursing note review, search engine optimization consultant note review, discussion with nursing and case management, and more than 50% of my time was spent on counseling and coordination of care, time spent 50 minutes Documented By: Oren Lara MD [id number] Signed By: <Electronically signed by Oren Lara MD> 01/28/25 1339 [facility] Work Phone: 1(771) 954-820703-03-2025 Consult note Author Jayme Pearce [facility] Note Date/Time January 28, 2025 12:3 2pm [facility] [address] [place] [address] Cardiology Consult Note Signed Patient: Bailee Traore MR#: [id number] : 1945 Acct:[id number] Age/Sex: 79 / M Adm Date: 5 Loc: Room: [address] [place] [address] Type: ADM IN Attending Dr: Kofi Mauricio MD Copies to: MD Lucille Wright DO Obaydah M Daromar, MD~ Cardiology HPI History of Present Illness Consult Date: 01/28/25 HPI: Mr. Traore is a 79yo M with the H below who presented to [facility] on 01/27/25 after being found down. He reportedly pressed some sort of life alert button andEMS was called and he was found slumped over on the toilet. 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 At the ER he was hemodynamically stable. When he arrived at the ER he was awake, but somnolent, confused and aphasic. CT head showed Right MCA infarct. He was hemodynamically stable. Troponin marginally elevated at 36. EKG is nonischemic. He was also in AFib withRVR at 163 bpm. He received Lopressor IV and converted to NSR. He remains in NSRwith good rate control. He He denies any chest pain, SOB, orthopnea, PND or syncope. Review of Systems Review of Systems All other systems reviewed & are negative unless noted below or in HPI [facility] Medical History Thyroid disorder Problem List clean-up per request of Phys. EHR [facility] HTN (hypertension) Problem List clean-up per request of Phys. EHR [facility] Surgical History Hx of knee surgery Problem List clean-up per request of Phys. EHR [facility] Social History Smoking Status: Former smoker Tobacco Type: pipe and cigars Substance Use Type: None Substance Abuse Comment: unable to assess Social History Comments: unable to assess Meds Medications and Allergies Allergies No Known Allergies Allergy (Verified 01/26/25 07:34) Home Medications atorvastatin 20 mg tablet mg 08/29/21 [History Confirmed 08/29/21] levothyroxine 50 mcg capsule mcg PO DAILY 08/29/21 [History] lisinopril 20 mg tablet mg 08/29/21 [History] Exam Physical Exam Vital Signs: Temp Pulse Resp BP Pulse Ox O2 Del Method O2 Flow Rate 98.1 F 84 18 115/57 L 98 Nasal Cannula 2 01/28/25 04:00 01/28/25 12:00 01/28/25 12:00 01/28/25 12:00 01/28/25 11:00 01/28/25 11:00 01/28/25 11:00 Narrative: Physical Exam: General: NAD, A&Ox3, Cooperative Head, Eyes: NC/AT, EOMI Lungs: Good air entry; No crackles/rhonchi/wheezes Heart: S1S2 normal, Regular rhythm, No murmurs/rubs/gallop, No JVD Extremities: No edema. Abdomen: Soft, non-tender, non-distended. Neuro: CN grossly intact, Face is symetric, No aphasia, No focal deficits. Psych: Normal mood & affect. Results - Cardiology Labs 01/28/25 04:48 01/28/25 04:48 Lab results: CBC 01/28/25 Range/Units 04:48 RBC 5.18 (3.90-5.60) x10E6/uL Hgb 15.1 (13.0-17.0) g/dL Hct 44.4 (38.8-50.0) % Plt Count 162 (150-450) x10E3/uL Neut # (Auto) 3.7 (1.8-7.7) x10E3/uL Lymph # (Auto) 1.8 (1.00-4.8) x10E3/uL Meade # (Auto) 0.7 (0.0-0.8) x10E3/uL Eos # (Auto) 0.1 (0.0-0.45) x10E3/uL Baso # (Auto) 0.1 (0.0-0.2) x10E3/uL Comprehensive Metabolic Panel 01/28/25 Range/Units 04:48 Sodium 139 (136-145) mmol/L Potassium 3.2 L (3.5-5.1) mmol/L Chloride 98 (98-107) mmol/L Carbon Dioxide 33.8 H (21.0-31.0) mmol/L BUN 21 (7-25) mg/dL Creatinine 0.87 (0.70-1.30) mg/dL Glucose 109 H (70-100) mg/dL Calcium 9.4 (8.6-10.3) mg/dL Intake and Output 01/27/25 01/28/25 01/28/25 22:59 06:59 14:59 Intake Total 420 / 1150 250 / 1150 Output Total 350 / 950 150 / 950 Balance 70 / 200 100 / 200 Intake: Oral 420 / 1150 250 / 1150 Output: Urine Amount (Catheter) 350 / 950 150 / 950 Urethral (Pizano) 350 / 950 150 / 950 Other: # Bowel Movements 0 0 Weight 79.4 kg Lab 01/26/25 01/27/25 07:40 05:01 PT 12.2 12.2 INR 1.1 1.1 APTT 30.8 36.3 A&P - Cardiology (1) Atrial fibrillation with RVR: Code(s): I48.91 - Unspecified atrial fibrillation (2) 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 # Paroxysmal AFib with RVR - Self-converted back to NSR. Chadsvasc 5. # Non-ACS troponin elevation 2/2 demand ischemia - Due to RVR on admission vs CVA. # HTN - well controlled. # Other: Hypothyroidism EKG 01/26/25 - Afib with RVR, 163 bpm, wit inferior injury. Echo 01/26/25 - EF 50-55%, mild-moderate LVH, normal wall motion, normal LA size. - Recommend Eliquis BID and high intensity statin. - He is in NSR. Add Metoprolol for rate control of paroxysms. - He has no angina and Echo is wnl. No indication for ischemic testing. - Will follow peripherally. Follow up with me in 2-3 months. Documented By: Jayme Pearce MD 02/19 1330 Signed By: <Electronically signed by Jayme Pearce MD> 01/28/25 0810 [facility] Work Phone: 1(121) 478-113503-03-2025 [place] [address] Hospitalist Progress Note Signed Patient: Bailee Traore MR#: [id number] : 1945 Acct:[id number] Age/Sex: 79 / M Adm Date: 5 Loc: Room: [address] [place] [address] Type: ADM IN Attending Dr: Kofi Mauricio MD Copies to: ~ Date of Service: 01/28/2025 Subjective Subjective Narrative: Patient is alert, awake, oriented to self, went in afib with RVR overnight, started on cardizem drip. Patient has involuntary movement in the left upper extremity, where occasionally he keeps his armraised and does not notice that he is doing it. He was able to work with PT/OT/ST today. Exam Physical Exam Vital Signs: Temp Pulse Resp BP Pulse Ox O2 Del Method O2 Flow Rate 98.1 F 71 16 94/58 L 95 Room Air 2 01/28/25 04:00 01/28/25 14:00 01/28/25 14:00 01/28/25 14:00 01/28/25 14:00 01/28/25 14:00 01/28/25 11:00 Narrative: Const General: cooperative HEENT Normal oropharyngeal mucosa without any ulcers or exudates Eyes: Conjunctiva normal Pulmonary Auscultation: clear to auscultation , no crackles, no wheezes Cardiovascular Rate: normal rate Rhythm: irregular rhythm Heart Sounds: S1 normal, S2 normal and no murmurs GI Inspection: non-distended Palpation: soft, not firm and nontender. No rigidity or rebound. Deferred Neuro General: alert, awake and oriented. No obvious new focal deficit Musculoskeletal: normal range of motion Extrem General: no cyanosis, no pedal edema Psych Appearance: appropriate affect. Grossly normal Objective Lab Results 01/28/25 04:48 01/28/25 04:48 Meds Allergies and Active Meds Allergies No Known Allergies Allergy (Verified 01/26/25 07:34) Active Meds: Active Medications Generic Name Dose Route Start Last Admin Trade Name Freq PRN Reason Stop Dose Admin Acetaminophen 650 mg 01/26/25 16:48 01/28/25 09:10 Acetaminophen 325 Mg Tablet PO 01/26/26 16:47 650 mg Q6HR PRN Administration Pain Scale 1 - 3 or fever Apixaban 5 mg 01/28/25 21:00 Apixaban 5 Mg Tablet PO 01/28/26 20:59 BID AL Aspirin 81 mg 01/27/25 09:00 01/28/25 09:07 Aspirin 81 Mg Tab.Chew PO 01/27/26 08:59 81 mg DAILY AL Administration Atorvastatin Calcium 80 mg 01/26/25 21:00 01/27/25 21:14 Atorvastatin 80 Mg Tablet PO 01/26/26 20:59 80 mg QPM AL Administration Magnesium Sulfate 2 gm in 50 mls @ 25 mls/hr 01/26/25 16:48 Magnesium Sulf 2gm-*Swfi* IV 01/26/26 16:47 DAILY PRN Magnesium Level < 1.7 Levetiracetam 500 mg 01/27/25 21:00 01/28/25 09:07 Levetiracetam 500 Mg Tablet PO 01/27/26 20:59 500 mg BID AL Administration Lorazepam 1 mg 01/26/25 16:47 01/28/25 13:56 Lorazepam 2 Mg/Ml Vial IV-PUSH 1 mg Q5M PRN Administration Seizures Metoprolol Succinate 50 mg 01/29/25 09:00 Metoprolol Succinate 50 Mg Tab.Er.24h PO 01/29/26 08:59 DAILY AL Ondansetron HCl 4 mg 01/26/25 16:48 Ondansetron 4 Mg/2 Ml Vial IV-PUSH 01/26/26 16:47 Q8H PRN Nausea And Vomiting Potassium Chloride 40 meq 01/26/25 16:48 01/28/25 13:57 Potassium Chloride Er 20 Meq Tab.Er.Prt PO 01/26/26 16:47 40 meq DAILY PRN Administration Hypokalemia Sodium Chloride 0 ml 01/26/25 07:29 01/26/25 10:40 Sodium Chloride 0.9 % 10 Ml Syringe IV-PUSH 01/26/26 07:28 10 ml PRN PRN Administration Flush Sodium Chloride 10 ml 01/26/25 16:47 Sodium Chloride 0.9 % 10 Ml Vial.Pf INJECTION 01/26/26 16:46 Q4H PRN Ativan dilution Sodium Chloride 0 ml 01/26/25 22:00 01/28/25 05:55 Sodium Chloride 0.9 % 10 Ml Syringe IV-PUSH 01/26/26 21:59 10 ml QSHIFT AL Administration A&P - Hospitalist Assessment/Plan (1) Stroke: Plan Acute MCA CVA Seizure-Like Episode Hemiballismus Patient appears to be in a postictal state on my assessment at bedside. CT angioimaging is noteworthy for possibly large R MCA stroke. -Continue with Keppra twice daily 500 mg -IV Ativan as needed for seizure-like episodes -Seizure precautions -Stroke workup including: MRI brain, echocardiogram, continued neuro-checks, lipid panel reviewd, A1c 5.9, PT/OT/ST Pulmonary Edema Possible Acute Heart Failure Does not appear to have any history that clearly shows heart failure. Chest x- ray does demonstrate volume overload bilaterally EKG did not demonstrate acute ischemic changes but did show A-fib with RVR. Received 1 dose IV diuretic emergency department -Decreased diuretics to 40 mg IV Lasix daily, from BID -Follow-up echocardiogram - cardiology consulted for their assessment, input appreciated. -Monitor on telemetry -Strict intake and output, daily weights Atrial fibrillation with RVR -Went in RVR overnight. restarted on cardizem drip -Continue full dose Lovenox every 12 hours, cardio recommended Eliquis. - cardiology consulted -Continue to monitor on telemetry -Obtain echocardiogram Likely basal cell carcinoma lesion on the medial right joyce [facility]. Will likely be hereat this time. -Currently on anticoagulation with full dose Lovenox -Consider general surgery consult for removal during this hospitalization/outpatient, holding for now Hypertension?lisinopril on home list of medications. Monitor blood pressure closely. Will maintain permissive hypertension in the next 24 to 48 hours Hypothyroidism?TSH is mildly elevated, but free T4 is within normal limits. Patient unclear of whathis home levothyroxine dose is Hyperlipidemia?check lipid panel. Reportedly on atorvastatin previously CODE STATUS: Full code. This is by default. Patient has a friend Mirza who is his primary contact. He does have [place], but he is not close with them. Patient's friend Mirza does have contact details of his family members DVT Ppx: Full-dose Lovenox Discussed with patient Documented By: Kofi Mauricio MD 01/28/2512 12 Signed By: 01/28/25 1507 [facility]03-03-2025 [place] [address] Physiatry (Rehab) Consult Note Signed Patient: Bailee Traore MR#: [id number] : 1945 Acct:[id number] Age/Sex: 79 / M Adm Date: 5 Loc: Room: [address] [place] [address] Type: ADM IN Attending Dr: Kofi Mauricio MD Copies to: MD Lucille Vaughan DO Obaydah M Daromar, MD~ HPI Consult Date: 01/28/25 Requesting Physician: Kofi Mauricio MD Primary Care Provider: Lucille Engel (Clinic), [facility] Consult Narrative Reason for consult: Evaluation for inpatient rehab HPI: Mr. Traore is a 79 year old male who presents with multifactorial functional decline in the setting of an acute CVA. Per chart review, the patient was found down at home. Upon presentation to the hospital, NIH score was 10. CT head demonstrating developing right MCA occlusion with corresponding infarct. Did notreceive thrombolytic therapy due to unknown timeline. Was also noted to be in afib with RVR on presentation and was given 5 mg IV Lopressor with conversion back to NSR. He also was notedto have a focal seizure. Has since been started on Keppra and PRN Ativan. He is also on IV Cardizemdue to persistent afib with RVR. I met with the patient today. He is sitting up in bed. Conversant. Unable to provide much history. It does sound like he was quite independent prior to presentation. Lives alone. 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 Hehas been noticing that he is having abnormal movements. Documented possible hemiballismus. I discussed IRF with the patient. He is agreeable. Review of Systems Review of Systems All other systems reviewed & are negative unless noted below or in HPI [facility] Medical History Thyroid disorder Problem List clean-up per request of Phys. [facility] HTN (hypertension) Problem List clean-up per request of Phys. [facility] Surgical History Hx of knee surgery Problem List clean-up per request of Phys. E[facility] Social History Smoking Status: Former smoker Tobacco Type: pipe and cigars Substance Use Type: None Substance Abuse Comment: unable to assess Social History Comments: unable to assess Meds Medications and Allergies Allergies No Known Allergies Allergy (Verified 01/26/25 07:34) Home Medications atorvastatin 20 mg tablet mg 08/29/21 [History Confirmed 08/29/21] levothyroxine 50 mcg capsule mcg PO DAILY 08/29/21 [History] lisinopril 20 mg tablet mg 08/29/21 [History] Exam Physical Exam Vital Signs: Temp Pulse Resp BP Pulse Ox O2 Del Method O2 Flow Rate 98.1 F 84 18 115/57 L 98 Nasal Cannula 2 01/28/25 04:00 01/28/25 12:00 01/28/25 12:00 01/28/25 12:00 01/28/25 11:00 01/28/25 11:00 01/28/25 11:00 Narrative: NAD. Sitting up in bed Extremities well perfused No respiratory distress Abdomen soft, non tender BAILEY. left sided weakness left hemiballismus is appreciated Speech is clear, fluent. Results - Phys. Rehab Labs Labs: Laboratory Results - last 24 hr 01/27/25 01/28/25 05:01 04:48 Corrected WBC 6.4 Uncorrected WBC Count 6.4 RBC 5.18 Hgb 15.1 Hct 44.4 MCV 85.6 MCH 29.1 MCHC 34.0 RDW 14.1 Plt Count 162 MPV 8.3 Neut % (Auto) 57.6 Lymph % (Auto) 27.6 Meade % (Auto) 11.6 Eos % (Auto) 2.0 Baso % (Auto) 1.2 Nucleat RBC Rel Count 0.1 Neut # (Auto) 3.7 Lymph # (Auto) 1.8 Meade # (Auto) 0.7 Eos # (Auto) 0.1 Baso # (Auto) 0.1 PHA Creatinine Clear 64.43 Sodium 139 Potassium 3.2 L Chloride 98 Carbon Dioxide 33.8 H Anion Gap 10.4 BUN 21 Creatinine 0.87 Est GFR (CKD-EPI) > 60.0 Glucose 109 H Estimat Average Glucose 123 Hemoglobin A1c 5.9 H Calcium 9.4 Assessment/Plan (1) 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 He has continued impaired mobility and impaired independence with ADLs and IADLs requiring PT/OT/CONSTRUCTION OR LEAK GANG LABORER 5-7 days/week 3 hours/day to maximize safety and independence with functional ability and self-care. Primary Rehabilitation Diagnosis: Right MCA CVA Patient is appropriate for acute inpatient rehab facility once medically stable per primary serviceand consultants. The patient has functional deficits requiring both active and ongoing therapeutic intervention of at least 2 disciplines of therapy, physical therapy/Occupational Therapy +/- speech t herapy. Patient has worked appropriately with multiple disciplines of therapy on acute care, and demonstrates ability to tolerate and participate and make reasonable gains with at least a 15 hour/week inpatient rehabilitation program. Due to medical complexity as noted, rehabilitation physician supervision is both reasonable and necessary, including [id number] visits at least 3 days/week with the need to treat, manage and modify course of treatment, including participating in at least once weekly interdisciplinary team conferences. The patient requires multidisciplinary rehabilitation treatment including rehabilitation physician at least 3 times per week, 24-hour rehabilitation nursing, physical occupational therapy, plus/minusspeech-language pathology, rehabilitation case management, nutrition services, plus minus rehabilitation psychology. This case cannot be best/most appropriately managed at a lower level of care. Estimated length of rehabilitation stay: 17 Days Prior Level of Function: IND Expected functional status at discharge from rehab: Self-care (ADLs) : Mod I Bed Mobility/Transfers: Mod I Ambulation: Mod I Cognition: Mod I Swallowing: Mod I There is a reasonable plan in place for discharge to the community. Overall prognosis is fair to good to make functional gains that would make substantial difference in the eventual discharge setting. Patient was personally seen by me, Dr. Lara, on the day of encounter, reviewed the history and the relevant portions of the chart, including current orders, allied health and search engine optimization consultant notes, labs/imaging and performed bender elements of exam and I formulated the plan of care and facilitated the medical decision making. I completed a substantive portion of this encounter, the medical decision making portion of this note in its entirety, including Allied health note review, nursing note review, search engine optimization consultant note review, discussion with nursing and case management, and more than 50% of my time was spent on counseling and coordination of care, time spent 50 minutes Documented By: Oren Lara MD [id number] Signed By: 01/28/25 1338 [facility]03-03-2025 [place] [address] Cardiology Consult Note Signed Patient: Bailee Traore MR#: [id number] : 1945 Acct:[id number] Age/Sex: 79 / M Adm Date: 5 Loc: Room: [address] [place] [address] Type: ADM IN Attending Dr: Kofi Mauricio MD Copies to: MD Lucille Wright DO Obaydah M Daromar, MD~ Cardiology HPI History of Present Illness Consult Date: 01/28/25 HPI: Mr. Traore is a 79yo M with the PMH below who presented to [facility] on 01/27/25 after being found down. He reportedly pressed some sort of life alert button andEMS was called and he was found slumpedover on the toilet. Patient is typicallyactive at home, lives alone in an apartment, drives runs [employer] and performs all of his ADLs. 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 At the ER he was hemodynamically stable. When he arrived at the ER he was awake, but somnolent, confused and aphasic. CT head showed Right MCA infarct. He was hemodynamically stable. Troponin marginally elevated at 36. EKG is nonischemic. He was also in AFib withRVR at 163 bpm. He received Lopressor IV and converted to NSR. He remains in NSRwith good rate control. He He denies any chest pain, SOB, orthopnea, PND or syncope. Review of Systems Review of Systems All other systems reviewed & are negative unless noted below or in HPI [facility] Medical History Thyroid disorder Problem List clean-up per request of [facility]. [facility] HTN (hypertension) Problem List clean-up per request of [facility]. [facility] Surgical History Hx of knee surgery Problem List clean-up per request of [facility]. [facility] Social History Smoking Status: Former smoker Tobacco Type: pipe and cigars Substance Use Type: None Substance Abuse Comment: unable to assess Social History Comments: unable to assess Meds Medications and Allergies Allergies No Known Allergies Allergy (Verified 01/26/25 07:34) Home Medications atorvastatin 20 mg tablet mg 08/29/21 [History Confirmed 08/29/21] levothyroxine 50 mcg capsule mcg PO DAILY 08/29/21 [History] lisinopril 20 mg tablet mg 08/29/21 [History] Exam Physical Exam Vital Signs: Temp Pulse Resp BP Pulse Ox O2 Del Method O2 Flow Rate 98.1 F 84 18 115/57 L 98 Nasal Cannula 2 01/28/25 04:00 01/28/25 12:00 01/28/25 12:00 01/28/25 12:00 01/28/25 11:00 01/28/25 11:00 01/28/25 11:00 Narrative: Physical Exam: General: NAD, A&Ox3, Cooperative Head, Eyes: NC/AT, EOMI Lungs: Good air entry; No crackles/rhonchi/wheezes Heart: S1S2 normal, Regular rhythm, No murmurs/rubs/gallop, No JVD Extremities: No edema. Abdomen: Soft, non-tender, non-distended. Neuro: CN grossly intact, Face is symetric, No aphasia, No focal deficits. Psych: Normal mood & affect. Results - Cardiology Labs 01/28/25 04:48 01/28/25 04:48 Lab results: CBC 01/28/25 Range/Units 04:48 RBC 5.18 (3.90-5.60) x10E6/uL Hgb 15.1 (13.0-17.0) g/dL Hct 44.4 (38.8-50.0) % Plt Count 162 (150-450) x10E3/uL Neut # (Auto) 3.7 (1.8-7.7) x10E3/uL Lymph # (Auto) 1.8 (1.00-4.8) x10E3/uL Meade # (Auto) 0.7 (0.0-0.8) x10E3/uL Eos # (Auto) 0.1 (0.0-0.45) x10E3/uL Baso # (Auto) 0.1 (0.0-0.2) x10E3/uL Comprehensive Metabolic Panel 01/28/25 Range/Units 04:48 Sodium 139 (136-145) mmol/L Potassium 3.2 L (3.5-5.1) mmol/L Chloride 98 (98-107) mmol/L Carbon Dioxide 33.8 H (21.0-31.0) mmol/L BUN 21 (7-25) mg/dL Creatinine 0.87 (0.70-1.30) mg/dL Glucose 109 H (70-100) mg/dL Calcium 9.4 (8.6-10.3) mg/dL Intake and Output 01/27/25 01/28/25 01/28/25 22:59 06:59 14:59 Intake Total 420 / 1150 250 / 1150 Output Total 350 / 950 150 / 950 Balance 70 / 200 100 / 200 Intake: Oral 420 / 1150 250 / 1150 Output: Urine Amount (Catheter) 350 / 950 150 / 950 Urethral (Pizano) 350 / 950 150 / 950 Other: # Bowel Movements 0 0 Weight 79.4 kg Lab 01/26/25 01/27/25 07:40 05:01 PT 12.2 12.2 INR 1.1 1.1 APTT 30.8 36.3 A&P - Cardiology (1) Atrial fibrillation with RVR: Code(s): I48.91 - Unspecified atrial fibrillation (2) 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 # Paroxysmal AFib with RVR - Self-converted back to NSR. Chadsvasc 5. # Non-ACS troponin elevation 2/2 demand ischemia - Due to RVR on admission vs CVA. # HTN - well controlled. # Other: Hypothyroidism EKG 01/26/25 - Afib with RVR, 163 bpm, wit inferior injury. Echo 01/26/25 - EF 50-55%, mild-moderate LVH, normal wall motion, normal LA size. - Recommend Eliquis BID and high intensity statin. - He is in NSR. Add Metoprolol for rate control of paroxysms. - He has no angina and Echo is wnl. No indication for ischemic testing. - Will follow peripherally. Follow up with me in 2-3 months. Documented By: Jayme Pearce MD 02/19 Signed By: 01/28/25 1332 [facility]03-02-2025 Progress note Author Bennett Navarro [facility] Note Date/Time January 27, 2025 5:35 pm [facility] [address] [place] [address] Hospitalist Progress Note Signed Patient: Bailee Traore MR#: [id number] : 1945 Acct:[id number] Age/Sex: 79 / M Adm Date: Loc: Room: [address] [place] [address] Type: ADM IN Attending Dr: Bennett Navarro MD Copies to: ~ Date of Service: 01/27/2025 Subjective Subjective Narrative: Neurologic status significantly improved today. Patient awake and talking in short word sentences during my assessment of him at bedside. Patient has involuntary movement in the left upper extremity, where occasionally he keeps his arm raised and does not notice that he is doing it. He was able to work with PT/OT/ST today. Was sitting at the chair at bedside for much of the day. Friend is at bedside and also updated with the plan of care. Exam Physical Exam Vital Signs: Temp Pulse Resp BP Pulse Ox O2 Del Method O2 Flow Rate 97.2 F L 97 22 147/75 H 94 L Room Air 1 01/27/25 16:00 01/27/25 16:00 01/27/25 16:00 01/27/25 16:00 01/27/25 16:00 01/27/25 16:00 01/27/25 04:00 Narrative: Constitutional: Frail, elderly WM HEENT: Pupils equal and reactive to light commendation, no rightward gaze noted upon my assessment at bedside Cardiovascular: RRR, no M/R/G, normal S1 and S2 Respiratory: Clear to auscultation bilaterally, no wheezes, rales or rhonchi GI: Soft, NTND, NABS : Urine catheter in place draining clear, yellow urine Extremities: Patient does have weakness on the left with pain to the right extremities. Strength 5/5 in bilateral upper extremities. Does appear to have some left-sided neglect in the upper and lower extremities. Hemiballismus seen in the left upper extremity. Neuro: AAOx3, patient is following commands and able to answer questions and brief sentences. Skin: There is a large papule noted on the medial right joyce that is flesh- colored, appears to be like a basal cell carcinoma Psych: Disoriented, lethargic, unable to answer questions appropriately Objective Lab Results 01/27/25 05:01 01/27/25 05:01 Meds Allergies and Active Meds Allergies No Known Allergies Allergy (Verified 01/26/25 07:34) Active Meds: Active Medications Generic Name Dose Route Start Last Admin Trade Name Freq PRN Reason Stop Dose Admin Acetaminophen 650 mg 01/26/25 16:48 Acetaminophen 325 Mg Tablet PO 01/26/26 16:47 Q6HR PRN Pain Scale 1 - 3 or fever Aspirin 81 mg 01/27/25 09:00 01/27/25 08:48 Aspirin 81 Mg Tab.Chew PO 01/27/26 08:59 Not Given DAILY AL Atorvastatin Calcium 80 mg 01/26/25 21:00 01/26/25 21:01 Atorvastatin 80 Mg Tablet PO 01/26/26 20:59 Not Given QPM AL Enoxaparin Sodium 80 mg 01/26/25 22:00 01/27/25 10:32 Enoxaparin 80 Mg/0.8 Ml Syringe SUBCUT 01/26/26 21:59 80 mg Q12HR.10A.10P AL Administration Furosemide 40 mg 01/26/25 17:30 01/27/25 16:41 Furosemide 40 Mg/4 Ml Vial IV-PUSH 01/26/26 17:29 40 mg BID@0800,1600 AL Administration Magnesium Sulfate 2 gm in 50 mls @ 25 mls/hr 01/26/25 16:48 Magnesium Sulf 2gm-*Swfi* IV 01/26/26 16:47 DAILY PRN Magnesium Level < 1.7 Levetiracetam 500 mg 01/27/25 21:00 Levetiracetam 500 Mg Tablet PO 01/27/26 20:59 BID AL Lorazepam 1 mg 01/26/25 16:47 Lorazepam 2 Mg/Ml Vial IV-PUSH Q5M PRN Seizures Ondansetron HCl 4 mg 01/26/25 16:48 Ondansetron 4 Mg/2 Ml Vial IV-PUSH 01/26/26 16:47 Q8H PRN Nausea And Vomiting Potassium Chloride 40 meq 01/26/25 16:48 01/27/25 16:41 Potassium Chloride Er 20 Meq Tab.Er.Prt PO 01/26/26 16:47 40 meq DAILY PRN Administration Hypokalemia Sodium Chloride 0 ml 01/26/25 07:29 01/26/25 10:40 Sodium Chloride 0.9 % 10 Ml Syringe IV-PUSH 01/26/26 07:28 10 ml PRN PRN Administration Flush Sodium Chloride 10 ml 01/26/25 16:47 Sodium Chloride 0.9 % 10 Ml Vial.Pf INJECTION 01/26/26 16:46 Q4H PRN Ativan dilution Sodium Chloride 0 ml 01/26/25 22:00 01/27/25 15:14 Sodium Chloride 0.9 % 10 Ml Syringe IV-PUSH 01/26/26 21:59 Not Given QSHIFT AL A&P - Hospitalist Assessment/Plan (1) Stroke: Plan Acute MCA CVA Seizure-Like Episode Hemiballismus Neurologic exam has significantly improved today. Patient appears to be in a postictal state on my assessment at bedside. CT angio imaging is noteworthy forpossibly large R MCA stroke. -Continue with Keppra twice daily 500 mg -IV Ativan as needed for seizure-like episodes -Seizure precautions -Stroke workup including: MRI brain, echocardiogram, continued neuro-checks, lipid panel, A1c, PT/OT/ST Pulmonary Edema Possible Acute Heart Failure Does not appear to have any history that clearly shows heart failure. Chest x- ray does demonstrate volume overload bilaterally EKG did not demonstrate acute ischemic changes but did show A-fib with RVR. Received 1 dose IV diuretic emergency department -Decrease diuretics to 40 mg IV Lasix daily, from BID -Follow-up echocardiogram -Consult cardiology for their assessment -Monitor on telemetry -Strict intake and output, daily weights Atrial fibrillation with RVR Flipped into normal sinus rhythm after 5 mg IV metoprolol given. Does remain inand out of atrial fibrillation. Will have cardiology assess given that this is a new onset arrhythmia (as far as we know) and patient is presenting with stroke -Continue full dose Lovenox every 12 hours -Consult cardiology -Continue to monitor on telemetry -Obtain echocardiogram Likely basal cell carcinoma lesion on the medial right joyce [facility] Will likely be hereat this time. -Currently on anticoagulation with full dose Lovenox -Consider general surgery consult for removal during this hospitalization, holding for now Hypertension?lisinopril on home list of medications. Monitor blood pressure closely. Will maintain permissive hypertension in the next 24 to 48 hours Hypothyroidism?TSH is mildly elevated, but free T4 is within normal limits. Patient unclear of what his home levothyroxine dose is Hyperlipidemia?check lipid panel. Reportedly on atorvastatin previously CODE STATUS: Full code. This is by default. Patient has a friend Mirza who is his primary contact. He does have [place], but he is not close with them. Patient's friend Mirza does have contact details of his family members DVT Ppx: Full-dose Lovenox Documented By: Bennett Navarro MD [id number] Signed By: <Electronically signed by Bennett Navarro MD> 01/27/25 1835 [facility] Work Phone: 1(485) 615-795003-02-2025 [place] [address] Hospitalist Progress Note Signed Patient: Bailee Traore MR#: [id number] : 1945 Acct:[id number] Age/Sex: 79 / M Adm Date: 5 Loc: Room: [address] [place] [address] Type: ADM IN Attending Dr: Bennett Navarro MD Copies to: ~ Date of Service: 01/27/2025 Subjective Subjective Narrative: Neurologic status significantly improved today. Patient awake and talking in short word sentences during my assessment of him at bedside. Patient has involuntary movement in the left upper extremity,where occasionally he keeps his arm raised and does not notice that he is doing it. He was able to work with PT/OT/ST today. Was sitting at the chair at bedside for much of the day. Friend is at bedside and also updated with the plan of care. Exam Physical Exam Vital Signs: Temp Pulse Resp BP Pulse Ox O2 Del Method O2 Flow Rate 97.2 F L 97 22 147/75 H 94 L Room Air 1 01/27/25 16:00 01/27/25 16:00 01/27/25 16:01/27/25 16:01/27/25 16:01/27/25 16:01/27/25 04:00 Narrative: Constitutional: Frail, elderly WM HEENT: Pupils equal and reactive to light commendation, no rightward gaze noted upon my assessment at bedside Cardiovascular: RRR, no M/R/G, normal S1 and S2 Respiratory: Clear to auscultation bilaterally, no wheezes, rales or rhonchi GI: Soft, NTND, NABS : Urine catheter in place draining clear, yellow urine Extremities: Patient does have weakness on the left with pain to the right extremities. Strength 5/5 in bilateral upper extremities. Does appear to have some left-sided neglect in the upper and lowerextremities. Hemiballismus seen in the left upper extremity. Neuro: AAOx3, patient is following commands and able to answer questions and brief sentences. Skin: There is a large papule noted on the medial right joyce that is flesh- colored, appears to be like a basal cell carcinoma Psych: Disoriented, lethargic, unable to answer questions appropriately Objective Lab Results 01/27/25 05:01 01/27/25 05:01 Meds Allergies and Active Meds Allergies No Known Allergies Allergy (Verified 01/26/25 07:34) Active Meds: Active Medications Generic Name Dose Route Start Last Admin Trade Name Freq PRN Reason Stop Dose Admin Acetaminophen 650 mg 01/26/25 16:48 Acetaminophen 325 Mg Tablet PO 01/26/26 16:47 Q6HR PRN Pain Scale 1 - 3 or fever Aspirin 81 mg 01/27/25 09:00 01/27/25 08:48 Aspirin 81 Mg Tab.Chew PO 01/27/26 08:59 Not Given DAILY AL Atorvastatin Calcium 80 mg 01/26/25 21:00 01/26/25 21:01 Atorvastatin 80 Mg Tablet PO 01/26/26 20:59 Not Given QPM AL Enoxaparin Sodium 80 mg 01/26/25 22:00 01/27/25 10:32 Enoxaparin 80 Mg/0.8 Ml Syringe SUBCUT 01/26/26 21:59 80 mg Q12HR.10A.10P AL Administration Furosemide 40 mg 01/26/25 17:30 01/27/25 16:41 Furosemide 40 Mg/4 Ml Vial IV-PUSH 01/26/26 17:29 40 mg BID@0800,1600 AL Administration Magnesium Sulfate 2 gm in 50 mls @ 25 mls/hr 01/26/25 16:48 Magnesium Sulf 2gm-*Swfi* IV 01/26/26 16:47 DAILY PRN Magnesium Level < 1.7 Levetiracetam 500 mg 01/27/25 21:00 Levetiracetam 500 Mg Tablet PO 01/27/26 20:59 BID [facility] Lorazepam 1 mg 01/26/25 16:47 Lorazepam 2 Mg/Ml Vial IV-PUSH Q5M PRN Seizures Ondansetron HCl 4 mg 01/26/25 16:48 Ondansetron 4 Mg/2 Ml Vial IV-PUSH 01/26/26 16:47 Q8H PRN Nausea And Vomiting Potassium Chloride 40 meq 01/26/25 16:48 01/27/25 16:41 Potassium Chloride Er 20 Meq Tab.Er.Prt PO 01/26/26 16:47 40 meq DAILY PRN Administration Hypokalemia Sodium Chloride 0 ml 01/26/25 07:29 01/26/25 10:40 Sodium Chloride 0.9 % 10 Ml Syringe IV-PUSH 01/26/26 07:28 10 ml PRN PRN Administration Flush Sodium Chloride 10 ml 01/26/25 16:47 Sodium Chloride 0.9 % 10 Ml Vial.Pf INJECTION 01/26/26 16:46 Q4H PRN Ativan dilution Sodium Chloride 0 ml 01/26/25 22:00 01/27/25 15:14 Sodium Chloride 0.9 % 10 Ml Syringe IV-PUSH 01/26/26 21:59 Not Given QSHIFT AL A&P - Hospitalist Assessment/Plan (1) Stroke: Plan Acute MCA CVA Seizure-Like Episode Hemiballismus Neurologic exam has significantly improved today. Patient appears to be in a postictal state on my assessment at bedside. CT angio imaging is noteworthy forpossibly large R MCA stroke. -Continue with Keppra twice daily 500 mg -IV Ativan as needed for seizure-like episodes -Seizure precautions -Stroke workup including: MRI brain, echocardiogram, continued neuro-checks, lipid panel, A1c, PT/OT/ST Pulmonary Edema Possible Acute Heart Failure Does not appear to have any history that clearly shows heart failure. Chest x- ray does demonstrate volume overload bilaterally EKG did not demonstrate acute ischemic changes but did show A-fib with RVR. Received 1 dose IV diuretic emergency department -Decrease diuretics to 40 mg IV Lasix daily, from BID -Follow-up echocardiogram -Consult cardiology for their assessment -Monitor on telemetry -Strict intake and output, daily weights Atrial fibrillation with RVR Flipped into normal sinus rhythm after 5 mg IV metoprolol given. Does remain inand out of atrial fibrillation. Will have cardiology assess given that this is a new onset arrhythmia (as far as we know) and patient is presenting with stroke -Continue full dose Lovenox every 12 hours -Consult cardiology -Continue to monitor on telemetry -Obtain echocardiogram Likely basal cell carcinoma lesion on the medial right joyce [facility] Will likely be hereat this time. -Currently on anticoagulation with full dose Lovenox -Consider general surgery consult for removal during this hospitalization, holding for now Hypertension?lisinopril on home list of medications. Monitor blood pressure closely. Will maintain permissive hypertension in the next 24 to 48 hours Hypothyroidism?TSH is mildly elevated, but free T4 is within normal limits. Patient unclear of whathis home levothyroxine dose is Hyperlipidemia?check lipid panel. Reportedly on atorvastatin previously CODE STATUS: Full code. This is by default. Patient has a friend Mirza who is his primary contact. He [place] have [place], but he is not close with them. Patient's friend Mirza does have contact details of his family members DVT Ppx: Full-dose Lovenox Documented By: Bennett Navarro MD [id number] Signed By: 01/27/[address] [place], [place] [id number] Consult note Author Lady Parks [facility] Note Date/Time January 27, 2025 11:0 0am [facility] [address] [place] [address] Neurology Consult Note Signed Patient: Bailee Traore MR#: [id number] : 1945 Acct:[id number] Age/Sex: 79 / M Adm Date: 5 Loc: Room: [address] [place] [address] Type: ADM IN Attending Dr: Bennett Navarro MD Copies to: MD Lucille Magana DO Nicole J Danner, DO~ HPI Consult Date: 01/27/25 Orientation And Mobility Specialist: Lady Parks DO Reason for consult: stroke and seizure Consult Narrative HPI: 79-year-old male being seen in neurology consultation at the [facility]. Patient was admitted to the emergency room. He was found down at home. 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 Reportedly the friends saw the patient Moises around noon at one of the meetings the patient runs. He was functioning normally at that point in time. Patient has somewhat been slowing down recently. He typically lives alone on an apartment. He reportedly pressed [place] alert button and EMS was called and he was found slumped over on the toilet. No other history about the event is obtainable. In the ER he reportedly had an NIH stroke scale score of 10. His head CT showed a developingright MCA occlusion and corresponding infarct. There is no time of onset and there was already development of the signs on the CT therefore he was not felt to be a thrombolytic candidate. It appeared he was out of the window from the development on CT. He was also found to be in atrial fibrillation with RVR. He was given 5 mg IVLopressor which flipped him back into sinus rhythm. Emergency room doctor discussed case with [place] neurocritical care and CT perfusion study was added. This did not demonstrate any area that was amenable to intervention. Patient was given 1 dose aspirin 325 mg. He was able to speak a little more clearly, but then patient had what appeared to be a focal seizure. Patient had rhythmic leg movements in his left upper extremity. He was given Ativan and Keppra. I was called at that point in time. A repeat CT scan was done to be sure that he was not having hemorrhagic transformation into the area of ischemia and it was negative for hemorrhage. Patient cannot give much history as to what happened. He states that he remembers being at the AA meeting and then he remembers being in the ER with hisarm shaking remembers being here. He cannot give much history as to what all occurred when he was at home. He has had no further rhythmic tonic-clonic type of events. He is having some arm raising hemiballismus type of symptoms on his left arm. Fortunately he does not have much weakness at this time. He denies any numbness tingling. He did have a little bit of a headache but that has resolved. He states has been a little cold but no true fevers or chills. He denies being sick recently. He denies any cardiac history. Review of Systems Constitutional Constitutional: Denies chills and Denies fever(s) Eyes Eyes: Denies blurry vision and Denies diplopia ENT Ears, Nose, Mouth, and Throat: Denies nasal congestion and Denies nasal discharge Cardiovascular Cardiovascular: Denies chest pain and Denies palpitations Respiratory Respiratory: Denies cough and Denies dyspnea Gastrointestinal Gastrointestinal: Denies nausea and Denies vomiting Genitourinary Genitourinary: Denies dysuria and Denies hematuria Musculoskeletal Musculoskeletal: Denies numbness and Denies tingling Integumentary/Breasts Skin/Breast: Denies rash Comments: He has a lesion on his right medial joyce that he reportedly has been putting something on that he got from his doctor at the [facility] Neurologic Neurologic: Denies dizziness, Reports seizure-like activity and Denies tingling PMFSH Medical History Thyroid disorder Problem List clean-up per request of Phys. EHR Cmte HTN (hypertension) Problem List clean-up per request of Phys. EHR Cmte Surgical History Hx of knee surgery Problem List clean-up per request of Phys. EHR Cmte Social History Smoking Status: Former smoker Tobacco Type: pipe and cigars Substance Use Type: None Substance Abuse Comment: unable to assess Social History Comments: unable to assess Meds Medications and Allergies Allergies No Known Allergies Allergy (Verified 01/26/25 07:34) Home Medications atorvastatin 20 mg tablet mg 08/29/21 [History Confirmed 08/29/21] levothyroxine 50 mcg capsule mcg PO DAILY 08/29/21 [History] lisinopril 20 mg tablet mg 08/29/21 [History] Exam Physical Exam Vital Signs: Temp Pulse Resp BP Pulse Ox O2 Del Method O2 Flow Rate 97.8 F 82 18 143/83 H 95 Room Air 1 01/26/25 15:00 01/27/25 06:00 01/27/25 06:00 01/27/25 06:00 01/27/25 06:00 01/27/25 08:00 01/27/25 04:00 Neuro Other: Patient is sitting up in the chair he is alert and oriented x3 No apparent distress Pleasant cooperative Follows commands answers questions Speech was clear and fluent no aphasia or dysarthria Cranial nerves II through XII pupils are equal reactive to light and accommodation bilaterally extraocular muscles were intact bilaterally visual schaeffer are full there is no nystagmus there is no facial asymmetry tongue is midline good range of motion palate rises symmetrically uvula is midline there are no facial sensory deficit he has good bilateral shoulder shrug Pronator drift is negative Coordination shows no signs of dysmetria with good rapid alternating movements [id number] Tone is physiologic however he does have some left hemiballismus Sensation is intact to pinprick temperature and vibratory Motor examination is 5 out of 5RUE and BLE, 4+/5 LUE Language skills are intact Memory and fund of knowledge are difficult to assess at this point in time Results - Neuro Laboratory Findings 01/27/25 05:01 01/27/25 05:01 Diagnostic Findings Imaging/Impressions: ITS Impressions Chest X-Ray 01/26/25 07:30 IMPRESSION: THYROMEGALY VASCULAR CONGESTION/INTERSTITIAL CHANGES SUGGESTIVE OF UNDERLYING CHF/PULMONARY EDEMA. NO DEFINITE CONSOLIDATION IS SEEN. Impression dictated by: Omkar Combs Jr., D.O.01/26/2025 8:30 AM Dictation Location: [facility] 01/26/25 07:30 IMPRESSION: Hypodensity involving the right parietotemporal region with paucity of vessels involving the M3 segment of the right MCA within this region suggestive of subacute ischemia with occlusion. Impression dictated by: Omkar Combs Jr., D.O.01/26/2025 9:04 AM Dictation Location: [facility] CT Cerebral Perfusion 01/26/25 09:54 IMPRESSION: Asymmetric elevated cerebral blood volume is noted in the anterior aspect of the left anterior cerebral artery/middle cerebral artery territory. This may represent sequelae of remote ischemic injury. Otherwise symmetric perfusion indices. Mismatch volume: 0 mL Mismatch ratio: None Impression dictated by: Emmanuel Grijalva M.D.01/26/2025 10:54 AM Dictation Location: [facility] 01/26/25 12:33 IMPRESSION: Evaluation for hemorrhage is limited due to previously given IV contrast. NO SIGNIFICANT CHANGE IN BRAIN FINDINGS COMPARED TO THE PRIOR STUDY FROM 7:45 AM THIS MORNING. 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 How this all transpired is difficult to determine as the patient lives alone and he cannot give any history. He ended up activating a medic alert type of system and was found slumped over on the toilet. He was brought into the ER and found to have changes on his CT and the occlusion. He was felt to be out of any intervention and thrombolytic window. He did have a perfusion study that showed no significant perfusion mismatch that would be treatable. He did have an event of atrial fibrillation but was given medications and is now out of that. It is difficult to tell if this is cardioembolic from the atrial fibrillation. Patient has very little left-sided weakness other than some mild weakness in the left upper extremity. However he did end up developing a left focal seizure and was placed on Keppra. He has not had any further arrhythmic events since being on the Keppra however he has developed some hemiballismus. He is to get an EEG to assess further for seizure. Plan: CTA showed the right MCA occlusion CT showed the developing infarct Awaiting MRI of the brain CT of the neck did not show any occlusions or stenosis Patient was placed on aspirin 81 mg daily Patient is on Lipitor Patient was placed on Keppra and is on the 1000 mg twice daily we will go ahead and take him down to 500 mg twice daily Awaiting the EEG Monitor the hemiballismus and decide if this is seizure related or hemiballismus and we need to do something more Hemoglobin A1c is pending Patient is hypothyroid with a TSH of 5.84 we will leave the treatment of that to the primary service Fasting lipids triglycerides 73, cholesterol 158, LDL 87, HDL 56 Telemetry for any further atrial fibrillation Patient may need anticoagulated Primary service versus cardiology to assess for the atrial fibrillation and treatment Patient will need therapies nutrition services aide to determine next step home versus other and what support system he has This was all discussed with the patient all questions were answered he agreed with the treatment plan. (2) Occlusion of middle cerebral artery: Qualifiers: Laterality: right Qualified Code(s): I66.01 - 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 (3) Seizure disorder, focal motor: (4) Hemiballismus: (5) Atrial fibrillation with RVR: Documented By: Lady Parks DO 01/27/25 0951 Signed By: <Electronically signed by DO Lady Parks> 01/27/[address] [place] [address] Work Phone: [phone]) 711-355703-02-[address] [address] Neurology Consult Note Signed Patient: Bailee Traore MR#: [id number] : 1945 Acct:[id number] Age/Sex: 79 / M Adm Date: 5 Loc: Room: [address] [place] [address] Type: ADM IN Attending Dr: Bennett Navarro MD Copies to: MD Lucille Magana DO Nicole J Danner, DO~ HPI Consult Date: 01/27/25 Orientation And Mobility Specialist: Lady Parks DO Reason for consult: stroke and seizure Consult Narrative HPI: 79-year-old male being seen in neurology consultation at the [facility]. Patient was admitted to the emergency room. He was found down at home. Patient is typically active at home drives runs [employer] meetings and performsall of his ADLs. 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 Reportedly the friends saw the patient Tuesday around noon at one of the meetings the patient runs. He was functioning normally at that point in time. Patient has somewhat been slowing down recently. He typically lives alone on an apartment. He reportedlypressed [place]esort [employer] life alert button and EMS was called and he was found slumped over on the toilet. No other history about the event is obtainable. In the ER he reportedly had an NIH stroke scale score of 10. His head CT showed a developingright MCA occlusion and corresponding infarct. There is no time of onset and there was already development of the signs on the CT therefore he was not felt to be a thrombolytic candidate. It appeared he was out of the window from the development on CT. He was also found to be in atrial fibrillation with RVR. He was given 5 mg IVLopressor which flipped him back into sinus rhythm. Emergency room doctor discussed case with [place] neurocritical care and CT perfusion study was added. This did not demonstrate any area that was amenable to intervention.Patient was given 1 dose aspirin 325 mg. He was able to speak a little more clearly, but then patient had what appeared to be a focal seizure. Patient had rhythmic leg movements in his left upper extremity. He was given Ativan and Keppra. I was called at that point in time. A repeat CT scan was done to be sure that he was not having hemorrhagic transformation into the area of ischemia and it was n egative for hemorrhage. Patient cannot give much history as to what happened. He states that he remembers being at the AA meeting and then he remembers being in the ER with hisarm shaking remembers being here. He cannot give much history as to what all occurred when he was at home. He has had no further rhythmic tonic-clonic type of events. He is having some arm raising hemiballismus type of symptoms on his left arm. Fortunately he does not have much weakness at this time. He denies any numbness tingling. He did have a little bit of a headache but that has resolved. He states has been a little cold but no true fevers or chills. He denies being sick recently. He denies any cardiac history. Review of Systems Constitutional Constitutional: Denies chills and Denies fever(s) Eyes Eyes: Denies blurry vision and Denies diplopia ENT Ears, Nose, Mouth, and Throat: Denies nasal congestion and Denies nasal discharge Cardiovascular Cardiovascular: Denies chest pain and Denies palpitations Respiratory Respiratory: Denies cough and Denies dyspnea Gastrointestinal Gastrointestinal: Denies nausea and Denies vomiting Genitourinary Genitourinary: Denies dysuria and Denies hematuria Musculoskeletal Musculoskeletal: Denies numbness and Denies tingling Integumentary/Breasts Skin/Breast: Denies rash Comments: He has a lesion on his right medial joyce that he reportedly has been putting something on that he got from his doctor at the [facility] Neurologic Neurologic: Denies dizziness, Reports seizure-like activity and Denies tingling PMFSH Medical History Thyroid disorder Problem List clean-up per request of Phys. EHR Cmte HTN (hypertension) Problem List clean-up per request of Phys. EHR Cmte Surgical History Hx of knee surgery Problem List clean-up per request of Phys. EHR Cmte Social History Smoking Status: Former smoker Tobacco Type: pipe and cigars Substance Use Type: None Substance Abuse Comment: unable to assess Social History Comments: unable to assess Meds Medications and Allergies Allergies No Known Allergies Allergy (Verified 01/26/25 07:34) Home Medications atorvastatin 20 mg tablet mg 08/29/21 [History Confirmed 08/29/21] levothyroxine 50 mcg capsule mcg PO DAILY 08/29/21 [History] lisinopril 20 mg tablet mg 08/29/21 [History] Exam Physical Exam Vital Signs: Temp Pulse Resp BP Pulse Ox O2 Del Method O2 Flow Rate 97.8 F 82 18 143/83 H 95 Room Air 1 01/26/25 15:00 01/27/25 06:00 01/27/25 06:00 01/27/25 06:00 01/27/25 06:00 01/27/25 08:00 01/27/25 04:00 Neuro Other: Patient is sitting up in the chair he is alert and oriented x3 No apparent distress Pleasant cooperative Follows commands answers questions Speech was clear and fluent no aphasia or dysarthria Cranial nerves II through XII pupils are equal reactive to light and accommodation bilaterally extraocular muscles were intact bilaterally visual schaeffer are full there is no nystagmus there is no facial asymmetry tongue is midline good range of motion palate rises symmetrically uvula is midline there are no facial sensory deficit he has good bilateral shoulder shrug Pronator drift is negative Coordination shows no signs of dysmetria with good rapid alternating movements [id number] Tone is physiologic however he does have some left hemiballismus Sensation is intact to pinprick temperature and vibratory Motor examination is 5 out of 5RUE and BLE, 4+/5 LUE Language skills are intact Memory and fund of knowledge are difficult to assess at this point in time Results - Neuro Laboratory Findings 01/27/25 05:01 01/27/25 05:01 Diagnostic Findings Imaging/Impressions: ITS Impressions Chest X-Ray 01/26/25 07:30 IMPRESSION: THYROMEGALY VASCULAR CONGESTION/INTERSTITIAL CHANGES SUGGESTIVE OF UNDERLYING CHF/PULMONARY EDEMA. NO DEFINITE CONSOLIDATION IS SEEN. Impression dictated by: Omkar Combs Jr., D.OYuni01/26/2025 8:30 AM Dictation Location: [facility] 01/26/25 07:30 IMPRESSION: Hypodensity involving the right parietotemporal region with paucity of vessels involving the M3 segment of the right MCA within this region suggestive of subacute ischemia with occlusion. Impression dictated by: Omkar Combs Jr., D.O.01/26/2025 9:04 AM Dictation Location: [facility] CT Cerebral Perfusion 01/26/25 09:54 IMPRESSION: Asymmetric elevated cerebral blood volume is noted in the anterior aspect of the left anterior cerebral artery/middle cerebral artery territory. This may represent sequelae of remote ischemic injury. Otherwise symmetric perfusion indices. Mismatch volume: 0 mL Mismatch ratio: None Impression dictated by: Emmanuel Grijalva M.D.01/26/2025 10:54 AM Dictation Location: [facility] 01/26/25 12:33 IMPRESSION: Evaluation for hemorrhage is limited due to previously given IV contrast. NO SIGNIFICANT CHANGE IN BRAIN FINDINGS COMPARED TO THE PRIOR STUDY FROM 7:45 AM THIS MORNING. 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 How this all transpired is difficult to determine as the patient lives alone and he cannot give any history. He ended up activating a medic alert type of system and was found slumped over on the toilet.He was brought into the ER and found to have changes on his CT and the occlusion. He was felt to beout of any intervention and thrombolytic window. He did have a perfusion study that showed no significant perfusion mismatch that would be treatable. He did have an event of atrial fibrillation but was given medications and is now out of that. It is difficult to tell if this is cardioembolic from the atrial fibrillation. Patient has very little left-sided weakness other than some mild weakness inthe left upper extremity. However he did end up developing a left focal seizure and was placed on Keppra. He has not had any further arrhythmic events since being on the Keppra however he has developed some hemiballismus. He is to get an EEG to assess further for seizure. Plan: CTA showed the right MCA occlusion CT showed the developing infarct Awaiting MRI of the brain CT of the neck did not show any occlusions or stenosis Patient was placed on aspirin 81 mg daily Patient is on Lipitor Patient was placed on Keppra and is on the 1000 mg twice daily we will go ahead and take him down to 500 mg twice daily Awaiting the EEG Monitor the hemiballismus and decide if this is seizure related or hemiballismus and we need to do something more Hemoglobin A1c is pending Patient is hypothyroid with a TSH of 5.84 we will leave the treatment of that to the primary service Fasting lipids triglycerides 73, cholesterol 158, LDL 87, HDL 56 Telemetry for any further atrial fibrillation Patient may need anticoagulated Primary service versus cardiology to assess for the atrial fibrillation and treatment Patient will need therapies nutrition services aide to determine next step home versus other and what support system he has This was all discussed with the patient all questions were answered he agreed with the treatment plan. (2) Occlusion of middle cerebral artery: Qualifiers: Laterality: right Qualified Code(s): I66.01 - 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 (3) Seizure disorder, focal motor: (4) Hemiballismus: (5) Atrial fibrillation with RVR: Documented By: Lady Parks DO 01/27/25 0951 Signed By: 01/27/[address] [place], [place] [id number] History and physical note Author Bennett Navarro [facility] Note Date/Time January 26, 2025 4:45 pm [facility] [address] [place] [address] Hospitalist H&P Signed Patient: Bailee Traore MR#: [id number] : 1945 Acct:[id number] Age/Sex: 79 / M Adm Date: 5 Loc: Room: [address] [place] [address] Type: ADM IN Attending Dr: Bennett Navarro MD Copies to: MD Lucille Magana DO~ HPI DATE OF EXAMINATION: 01/26/25 CHIEF COMPLAINT: Patient found down HISTORY OF PRESENT ILLNESS: Mr. Traore is an 79-year-old male with unclear past medical history at this time who presents to the emergency department after being found down. History obtained via physician signout and via electronic medical record, as patient cannot detail recent events. Patient's primary contact, Mirza, is a friend, andalso provide some background information. Patient reportedly is very active at baseline. Does not usually require any assistive devices, still drives and runssome local AA meetings. He is a former smoker of pipes and cigars, has not beenon any drugs or alcohol since 55+ years ago, per his friend. At this time, Mirza reports that he last saw patient at approximately noon yesterday during one of the meetings that the patient runs, and he ran it without issue. His friend notes that patient has been slowing down over the past few months, but he has been able to perform his ADLs and IADLs without any issue. He also notesthat patient has been complaining of urinating frequently. It is unclear to me how patient did present to the emergency department, but he reportedly does livealone on the ninth floor of an apartment complex. He reportedly pressed some sort of life alert button, and EMS was called and he was found to be slumped over on the toilet. In the emergency department, patient with a significantly elevated NIH score greater than 10. Initial CT of the head was obtained, and patient was noted to be outside of the thrombolytic window. He was also found to be in atrial fibrillation with RVR. He was given 5 mg IV Lopressor which flipped him back into sinus rhythm. BNP was elevated at 258 and initial troponin was 36. CT of the head without contrast was noteworthy for area of concerning ischemia and CTAof the head and neck demonstrated right sided M3 MCA distal occlusion. Emergency room doctor discussed case with [place] neurocritical care and CT perfusion study was added. This did not demonstrate any area that was amenable to intervention. Patient was given 1 dose aspirin 325 mg. He was able to speaka little more clearly, but then patient had what appeared to be a focal seizure. His left upper extremity were having tremor-like movements that were rhythmic. He was given Ativan and Keppra and this abated. His case was then discussed between myself and ED attending and patient was recommended for discussion with neurology locally, Dr. Parks. She recommended CT of the head repeated which did not show any evidence of hemorrhage. He was admitted to the hospitalist service for further management. Review of Systems Review of Systems Review of systems: 10 point ROS reviewed and is negative except for that which is noted above in HPI [facility] Medical History HTN (hypertension) Thyroid disorder Surgical History Hx of knee surgery Social History Smoking Status: Former smoker Tobacco Type: pipe and cigars Substance Use Type: None Meds Medications and Allergies Allergies No Known Allergies Allergy (Verified 01/26/25 07:34) Home Medications atorvastatin 20 mg tablet mg 08/29/21 [History Confirmed 08/29/21] levothyroxine 50 mcg capsule mcg PO DAILY 08/29/21 [History] lisinopril 20 mg tablet mg 08/29/21 [History] Exam Physical Exam Vital Signs: Temp Pulse Resp BP Pulse Ox O2 Del Method O2 Flow Rate 97.7 F 92 21 155/69 H 97 Nasal Cannula 4 01/26/25 07:35 01/26/25 14:33 01/26/25 14:33 01/26/25 14:33 01/26/25 14:33 01/26/25 14:35 01/26/25 14:35 Narrative: Constitutional: Frail, elderly WM, resting in bed, minimally responsive, very somnolent, patient is essentially sleeping during most of my assessment HEENT: Pupils equal and reactive to light commendation, no rightward gaze noted upon my assessment at bedside Cardiovascular: RRR, no M/R/G, normal S1 and S2 Respiratory: Clear to auscultation bilaterally, no wheezes, rales or rhonchi GI: Soft, NTND, NABS : Urine catheter in place draining clear, yellow urine Extremities: Patient very somnolent and unable to easily follow commands. Globally weak throughout, patient is able to withdrawal secondary to pain in the left upper and lower extremities Neuro: AO x 0, unable to follow commands, essentially aphasic other than grunts and moans. Does appear to move right side slightly more than the left Skin: There is a large papule noted on the medial right joyce that is flesh- colored, appears to be like a basal cell carcinoma Psych: Disoriented, lethargic, unable to answer questions appropriately Results - Hospitalist H&P Lab Results Labs: Laboratory Last Values Corrected WBC 6.9 X10E3/uL (4.1-10.5) 01/26/25 07:40 Uncorrected WBC Count 6.9 x10E3/uL (4.1-10.5) 01/26/25 07:40 RBC 4.86 x10E6/uL (3.90-5.60) 01/26/25 07:40 Hgb 14.4 g/dL (13.0-17.0) 01/26/25 07:40 POC Hgb 16.0 g/dl (12.0-17.0) 01/26/25 07:36 Hct 42.4 % (38.8-50.0) 01/26/25 07:40 POC Hct 47.0 % (38.0-51.0) 01/26/25 07:36 MCV 87.2 fl (83.5-101) 01/26/25 07:40 MCH 29.7 pg (27.5-35.2) 01/26/25 07:40 MCHC 34.0 g/dL (32.5-35.6) 01/26/25 07:40 RDW 14.4 % (12.0-14.8) 01/26/25 07:40 Plt Count 192 x10E3/uL (150-450) 01/26/25 07:40 MPV 7.8 fl (6.6-10.1) 01/26/25 07:40 Neut % (Auto) 36.9 % (.) 01/26/25 07:40 Lymph % (Auto) 46.6 % (.) 01/26/25 07:40 Meade % (Auto) 11.5 % (.) 01/26/25 07:40 Eos % (Auto) 3.6 % (.) 01/26/25 07:40 Baso % (Auto) 1.4 % (.) 01/26/25 07:40 Nucleat RBC Rel Count 0.2 /100 WBC (0-0.5) 01/26/25 07:40 Neut # (Auto) 2.5 x10E3/uL (1.8-7.7) 01/26/25 07:40 Lymph # (Auto) 3.2 x10E3/uL (1.00-4.8) 01/26/25 07:40 Meade # (Auto) 0.8 x10E3/uL (0.0-0.8) 01/26/25 07:40 Eos # (Auto) 0.2 x10E3/uL (0.0-0.45) 01/26/25 07:40 Baso # (Auto) 0.1 x10E3/uL (0.0-0.2) 01/26/25 07:40 Monocyte Dist Width 22.89 % (0.00-20.00) H 01/26/25 07:40 PT 12.2 Seconds (9.0-12.9) 01/26/25 07:40 INR 1.1 01/26/25 07:40 APTT 30.8 Seconds (25.1-36.5) 01/26/25 07:40 PHA Creatinine Clear 58.39 01/26/25 07:40 POC Sodium 142 mmol/L (138-146) 01/26/25 07:36 Sodium 139 mmol/L (136-145) 01/26/25 07:40 POC Potassium 3.3 mmol/L (3.5-4.9) L 01/26/25 07:36 Potassium 3.3 mmol/L (3.5-5.1) L 01/26/25 07:40 POC Chloride 105.0 mmol/L (98-109) 01/26/25 07:36 Chloride 104 mmol/L (98-107) 01/26/25 07:40 Carbon Dioxide 19.3 mmol/L (21.0-31.0) L 01/26/25 07:40 POC Total CO2 23 mmol/L (23-29) 01/26/25 07:36 Anion Gap 19.0 mEq/L (6.0-15.0) H 01/26/25 07:40 POC BUN 14 mg/dl (8-26) 01/26/25 07:36 BUN 13 mg/dL (7-25) 01/26/25 07:40 Creatinine 0.96 mg/dL (0.70-1.30) 01/26/25 07:40 POC Creatinine 0.9 mg/dl (0.6-1.3) 01/26/25 07:36 Est GFR (CKD-EPI) > 60.0 mL/Min 01/26/25 07:40 Glucose 187 mg/dL (70-100) H 01/26/25 07:40 POC Whole Bld Glucose 192 mg/dl (70-105) H 01/26/25 07:36 Calcium 9.1 mg/dL (8.6-10.3) 01/26/25 07:40 POC Ioniz Calcium Seng 1.12 mol/L (1.12-1.32) 01/26/25 07:36 Total Creatine Kinase 89 U/L (30-223) 01/26/25 07:40 Troponin I High Sens 36 ng/L (0-20) H 01/26/25 07:40 B-Natriuretic Peptide 258.0 pg/mL (5-100) H 01/26/25 07:33 Urine Color Light-yellow (Yellow) 01/26/25 11:25 Urine Appearance Clear (Clear) 01/26/25 11:25 Urine pH 6.5 (5.0-9.0) 01/26/25 11:25 Ur Specific [place] 1.039 (1.001-1.030) H 01/26/25 11:25 Urine Protein Negative mg/dL (Negative) 01/26/25 11:25 Urine Glucose (UA) Normal mg/dL (Normal) 01/26/25 11:25 Urine Ketones Negative (Negative) 01/26/25 11:25 Urine Occult Blood Negative (Negative) 01/26/25 11:25 Urine Nitrite Negative (Negative) 01/26/25 11:25 Urine Bilirubin Negative (Negative) 01/26/25 11:25 Urine Urobilinogen Normal mg/dL (Normal) 01/26/25 11:25 Ur Leukocyte Esterase Negative (Negative) 01/26/25 11:25 COVID-19 Clin Com Not detected (Not Detecte) 01/26/25 08:08 Microbiology Results Micro: Microbiology - Results from entire visit 01/26/25 08:08 Nasopharyngeal Respiratory Panel (PCR) - Final Assessment & Plan Assessment/Plan (1) Stroke: Plan Acute MCA CVA Seizure-Like Episode Patient appears to be in a postictal state on my assessment at bedside. CT angio imaging is noteworthy for possibly large MCA stroke. This is not amenable to thrombectomy per neurocritical care team -Continue with IV Keppra twice daily 1000mg IV -IV Ativan as needed -Seizure precautions -Stroke workup including: MRI brain, echocardiogram, continue neurochecks, lipid panel, A1c, PT/OT/ST Pulmonary Edema Possible Acute Heart Failure Does not appear to have any history that clearly shows heart failure. Chest x- ray does demonstrate volume overload bilaterally EKG did not demonstrate acute ischemic changes but did show A-fib with RVR. Received 1 dose IV diuretic emergency department -40 mg IV Lasix twice daily -Monitor on telemetry -Strict intake and output, daily weights Atrial fibrillation with RVR Flipped into normal sinus rhythm after 5 mg IV metoprolol given. Does not have history of this arrhythmia -Start full dose Lovenox every 12 hours -Continue to monitor on telemetry -Obtain echocardiogram Hypertension?lisinopril on home list of medications. Monitor blood pressure closely. Will maintain permissive hypertension in the next 24 to 48 hours Hypothyroidism?follow-up TSH, unclear of what levothyroxine dose is at this time Hyperlipidemia?check lipid panel. Reportedly on atorvastatin previously CODE STATUS: Full code. This is by default. Patient has a friend who is his primary contact. He does have siblings that are older than him that lives in [place]. Patient's friend Mirza does have contact details of his family members DVT ppx: Full-dose Lovenox IP vs OBS Justification Based on differential dx, clinical care plan, and risk of adverse events, if untreated, in my clinical judgement this patient requires an acute care setting as: INPATIENT because of an expectation of an over 2 midnight stay. Estimated length of stay (# of days): 4 Documented By: Bennett Navarro MD 5 [id number] Signed By: <Electronically signed by Bennett Navarro MD> 01/26/25 6069 [facility] Work Phone: 1(700) 598-787903-01-2025 [place] [address] Hospitalist H&P Signed Patient: Bailee Traore MR#: [id number] : 1945 Acct:[id number] Age/Sex: 79 / M Adm Date: 5 Loc: Room: [address] [place] [address] Type: ADM IN Attending Dr: Bennett Navarro MD Copies to: MD Lucille Magana DO~ HPI DATE OF EXAMINATION: 01/26/25 CHIEF COMPLAINT: Patient found down HISTORY OF PRESENT ILLNESS: Mr. Traore is an 79-year-old male with unclear past medical history at this time who presents to the emergency department after being found down. History obtained via physician signout and via electronic medical record, as patient cannot detail recent events. Patient's primary contact, Mirza, is afriend, andalso provide some background information. Patient reportedly is very active at baseline.Does not usually require any assistive devices, still drives and runssome local AA meetings. He is a former smoker of pipes and cigars, has not beenon any drugs or alcohol since 55+ years ago, per his friend. At this time, Mirza reports that he last saw patient at approximately noon yesterday during one of the meetings that the patient runs, and he ran it without issue. His friend notes that patient has been slowing down over the past few months, but he has been able to perform his ADLs and IADLs without any issue. He also notesthat patient has been complaining of urinating frequently. It is unclear to me how patient did present to the emergency department, but he reportedly does livealone on the ninth floor of an apartment complex. He reportedly pressed some sort of life alert button, and EMS was called and he was found to be slumped over on the toilet. In the emergency department, patient with a significantly elevated NIH score greater than 10. Initial CT of the head was obtained, and patient was noted to be outside of the thrombolytic window. He was also found to be in atrial fibrillation with RVR. He was given 5 mg IV Lopressor which flipped him back into sinus rhythm. BNP was elevated at 258 and initial troponin was 36. CT of the head without contrast was noteworthy for area of concerning ischemia and CTAof the head and neck demonstrated right sided M3 MCA distal occlusion. Emergency room doctor discussed case with [place] neurocritical care and CT perfusion study was added. This did not demonstrate any area that was amenable to intervention. Patient was given 1 dose aspirin 325 mg. He was able to speaka little more clearly, but then patient had what appeared to be a focal seizure. His left upper extremity were having tremor-like movements that were rhythmic. He was given Ativan and Keppra and this abated. His case was then discussed between myself and ED attending and patient was recommended for discussion with neurology locally, Dr. Parks. She recommended CT of the head repeated which did not show any evidence of hemorrhage. He was admitted to the hospitalist service for further management. Review of Systems Review of Systems Review of systems: 10 point ROS reviewed and is negative except for that which is noted above in HPI [facility] Medical History HTN (hypertension) Thyroid disorder Surgical History Hx of knee surgery Social History Smoking Status: Former smoker Tobacco Type: pipe and cigars Substance Use Type: None Meds Medications and Allergies Allergies No Known Allergies Allergy (Verified 01/26/25 07:34) Home Medications atorvastatin 20 mg tablet mg 08/29/21 [History Confirmed 08/29/21] levothyroxine 50 mcg capsule mcg PO DAILY 08/29/21 [History] lisinopril 20 mg tablet mg 08/29/21 [History] Exam Physical Exam Vital Signs: Temp Pulse Resp BP Pulse Ox O2 Del Method O2 Flow Rate 97.7 F 92 21 155/69 H 97 Nasal Cannula 4 01/26/25 07:35 01/26/25 14:33 01/26/25 14:33 01/26/25 14:33 01/26/25 14:33 01/26/25 14:35 01/26/25 14:35 Narrative: Constitutional: Frail, elderly WM, resting in bed, minimally responsive, very somnolent, patient isessentially sleeping during most of my assessment HEENT: Pupils equal and reactive to light commendation, no rightward gaze noted upon my assessment at bedside Cardiovascular: RRR, no M/R/G, normal S1 and S2 Respiratory: Clear to auscultation bilaterally, no wheezes, rales or rhonchi GI: Soft, NTND, NABS : Urine catheter in place draining clear, yellow urine Extremities: Patient very somnolent and unable to easily follow commands. Globally weak throughout,patient is able to withdrawal secondary to pain in the left upper and lower extremities Neuro: AO x 0, unable to follow commands, essentially aphasic other than grunts and moans. Does appear to move right side slightly more than the left Skin: There is a large papule noted on the medial right joyce that is flesh- colored, appears to be like a basal cell carcinoma Psych: Disoriented, lethargic, unable to answer questions appropriately Results - Hospitalist H&P Lab Results Labs: Laboratory Last Values Corrected WBC 6.9 X10E3/uL (4.1-10.5) 01/26/25 07:40 Uncorrected WBC Count 6.9 x10E3/uL (4.1-10.5) 01/26/25 07:40 RBC 4.86 x10E6/uL (3.90-5.60) 01/26/25 07:40 Hgb 14.4 g/dL (13.0-17.0) 01/26/25 07:40 POC Hgb 16.0 g/dl (12.0-17.0) 01/26/25 07:36 Hct 42.4 % (38.8-50.0) 01/26/25 07:40 POC Hct 47.0 % (38.0-51.0) 01/26/25 07:36 MCV 87.2 fl (83.5-101) 01/26/25 07:40 MCH 29.7 pg (27.5-35.2) 01/26/25 07:40 MCHC 34.0 g/dL (32.5-35.6) 01/26/25 07:40 RDW 14.4 % (12.0-14.8) 01/26/25 07:40 Plt Count 192 x10E3/uL (150-450) 01/26/25 07:40 MPV 7.8 fl (6.6-10.1) 01/26/25 07:40 Neut % (Auto) 36.9 % (.) 01/26/25 07:40 Lymph % (Auto) 46.6 % (.) 01/26/25 07:40 Meade % (Auto) 11.5 % (.) 01/26/25 07:40 Eos % (Auto) 3.6 % (.) 01/26/25 07:40 Baso % (Auto) 1.4 % (.) 01/26/25 07:40 Nucleat RBC Rel Count 0.2 /100 WBC (0-0.5) 01/26/25 07:40 Neut # (Auto) 2.5 x10E3/uL (1.8-7.7) 01/26/25 07:40 Lymph # (Auto) 3.2 x10E3/uL (1.00-4.8) 01/26/25 07:40 Meade # (Auto) 0.8 x10E3/uL (0.0-0.8) 01/26/25 07:40 Eos # (Auto) 0.2 x10E3/uL (0.0-0.45) 01/26/25 07:40 Baso # (Auto) 0.1 x10E3/uL (0.0-0.2) 01/26/25 07:40 Monocyte Dist Width 22.89 % (0.00-20.00) H 01/26/25 07:40 PT 12.2 Seconds (9.0-12.9) 01/26/25 07:40 INR 1.1 01/26/25 07:40 APTT 30.8 Seconds (25.1-36.5) 01/26/25 07:40 PHA Creatinine Clear 58.39 01/26/25 07:40 POC Sodium 142 mmol/L (138-146) 01/26/25 07:36 Sodium 139 mmol/L (136-145) 01/26/25 07:40 POC Potassium 3.3 mmol/L (3.5-4.9) L 01/26/25 07:36 Potassium 3.3 mmol/L (3.5-5.1) L 01/26/25 07:40 POC Chloride 105.0 mmol/L (98-109) 01/26/25 07:36 Chloride 104 mmol/L (98-107) 01/26/25 07:40 Carbon Dioxide 19.3 mmol/L (21.0-31.0) L 01/26/25 07:40 POC Total CO2 23 mmol/L (23-29) 01/26/25 07:36 Anion Gap 19.0 mEq/L (6.0-15.0) H 01/26/25 07:40 POC BUN 14 mg/dl (8-26) 01/26/25 07:36 BUN 13 mg/dL (7-25) 01/26/25 07:40 Creatinine 0.96 mg/dL (0.70-1.30) 01/26/25 07:40 POC Creatinine 0.9 mg/dl (0.6-1.3) 01/26/25 07:36 Est GFR (CKD-EPI) > 60.0 mL/Min 01/26/25 07:40 Glucose 187 mg/dL (70-100) H 01/26/25 07:40 POC Whole Bld Glucose 192 mg/dl (70-105) H 01/26/25 07:36 Calcium 9.1 mg/dL (8.6-10.3) 01/26/25 07:40 POC Ioniz Calcium Seng 1.12 mol/L (1.12-1.32) 01/26/25 07:36 Total Creatine Kinase 89 U/L (30-223) 01/26/25 07:40 Troponin I High Sens 36 ng/L (0-20) H 01/26/25 07:40 B-Natriuretic Peptide 258.0 pg/mL (5-100) H 01/26/25 07:33 Urine Color Light-yellow (Yellow) 01/26/25 11:25 Urine Appearance Clear (Clear) 01/26/25 11:25 Urine pH 6.5 (5.0-9.0) 01/26/25 11:25 Ur Specific [place] 1.039 (1.001-1.030) H 01/26/25 11:25 Urine Protein Negative mg/dL (Negative) 01/26/25 11:25 Urine Glucose (UA) Normal mg/dL (Normal) 01/26/25 11:25 Urine Ketones Negative (Negative) 01/26/25 11:25 Urine Occult Blood Negative (Negative) 01/26/25 11:25 Urine Nitrite Negative (Negative) 01/26/25 11:25 Urine Bilirubin Negative (Negative) 01/26/25 11:25 Urine Urobilinogen Normal mg/dL (Normal) 01/26/25 11:25 Ur Leukocyte Esterase Negative (Negative) 01/26/25 11:25 COVID-19 Clin Com Not detected (Not Detecte) 01/26/25 08:08 Microbiology Results Micro: Microbiology - Results from entire visit 01/26/25 08:08 Nasopharyngeal Respiratory Panel (PCR) - Final Assessment & Plan Assessment/Plan (1) Stroke: Plan Acute MCA CVA Seizure-Like Episode Patient appears to be in a postictal state on my assessment at bedside. CT angio imaging is noteworthy for possibly large MCA stroke. This is not amenable to thrombectomy per neurocritical care team -Continue with IV Keppra twice daily 1000mg IV -IV Ativan as needed -Seizure precautions -Stroke workup including: MRI brain, echocardiogram, continue neurochecks, lipid panel, A1c, PT/OT/ST Pulmonary Edema Possible Acute Heart Failure Does not appear to have any history that clearly shows heart failure. Chest x- ray does demonstrate volume overload bilaterally EKG did not demonstrate acute ischemic changes but did show A-fib with RVR. Received 1 dose IV diuretic emergency department -40 mg IV Lasix twice daily -Monitor on telemetry -Strict intake and output, daily weights Atrial fibrillation with RVR Flipped into normal sinus rhythm after 5 mg IV metoprolol given. Does not have history of this arrhythmia -Start full dose Lovenox every 12 hours -Continue to monitor on telemetry -Obtain echocardiogram Hypertension?lisinopril on home list of medications. Monitor blood pressure closely. Will maintain permissive hypertension in the next 24 to 48 hours Hypothyroidism?follow-up TSH, unclear of what levothyroxine dose is at this time Hyperlipidemia?check lipid panel. Reportedly on atorvastatin previously CODE STATUS: Full code. This is by default. Patient has a friend who is his primary contact. He does have siblings that are older than him that lives in [place]. Patient's friend Mirza does have contact details of his family members DVT ppx: Full-dose Lovenox IP vs OBS Justification Based on differential dx, clinical care plan, and risk of adverse events, if untreated, in my clinical judgement this patient requires an acute care setting as: INPATIENT because of an expectation ofan over 2 midnight stay. 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 acute Jan 12:51pm Hemiballismus acute January 26, 2025 12:51pm Impaired mobility and activi ties of daily living acute January 26, 2025 12:51pm 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, 2025 12:51pm Seizure acute January 26 12:51pm Seizure disorder, focal motor acute January 26, 2025 12:51pm Stroke acute January 26 12:51pm [facility] Work Phone: [phone]) 965-686403-01-2025 Evaluation note* Diagnosis Onset Date Resolution Status Admit Date Atrial fibrillation with RVR inactiv e January 26, 2025 12:51pm 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 inactive Jan 12:51pm Hemiballismus inactive January 26, 2025 12:51pm Impaired mobility and activi ties of daily living inactive January 26, 2025 12:51pm Occlusion of middle cerebral artery inactive January 26, 2025 12:51pm Seizure inactive January 26 12:51pm Seizure disorder, focal motor inacti ve January 26, 2025 12:51pm Stroke inactive January 26 12:51pm Atrial fibrillation acute January 30, 2025 8:45pm Cerebritis acute January 30 8:45pm Dysphagia acute January 30 8:45pm Hyperlipidemia acute January 30, 2025 8:45pm Hypothyroid acute January 30 8:45pm 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, 2025 8:45pm Atrial fibrillation with RVR inactiv e January 30, 2025 8:45pm Hemiballismus inactive January 30, 2025 8:45pm Impaired mobility and activi ties of daily living inactive January 30, 2025 8:45pm Occlusion of middle cerebral artery inactive January 30, 2025 8:45pm Seizure inactive January 30 8:45pm Seizure disorder, focal motor inacti ve January 30, 2025 8:45pm [facility] Work Phone: 1([phone]) 573-647803-01-2025 Evaluation note* Diagnosis Onset Date Resolution Status Admit Date Atrial fibrillation with RVR inactiv e January 26, 2025 12:51pm 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 inactive Jan 12:51pm Hemiballismus inactive January 26, 2025 12:51pm Impaired mobility and activi ties of daily living inactive January 26, 2025 12:51pm Occlusion of middle cerebral artery inactive January 26, 2025 12:51pm Seizure inactive January 26 12:51pm Seizure disorder, focal motor inacti ve January 26, 2025 12:51pm Stroke inactive January 26 12:51pm Atrial fibrillation acute January 30, 2025 8:45pm Cerebritis acute January 30 8:45pm Dysphagia acute January 30 8:45pm Hyperlipidemia acute January 30, 2025 8:45pm Hypothyroid acute January 30 8:45pm 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, 2025 8:45pm Atrial fibrillation with RVR inactiv e January 30, 2025 8:45pm Hemiballismus inactive January 30, 2025 8:45pm Impaired mobility and activi ties of daily living inactive January 30, 2025 8:45pm Occlusion of middle cerebral artery inactive January 30, 2025 8:45pm Seizure inactive January 30 8:45pm Seizure disorder, focal motor inacti ve January 30, 2025 8:45pm 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 wi acute April 17 12:51pm HTN (hypertension) acute April 172024 12:51pm Hyperlipidemia acute April 17, 2025 12:51pm Paroxysmal atrial fibrillation acute April 17, 2025 12:51pm S/P coronary artery stent placement acute April 17, 2025 1 2:51pm [facility] Work Phone: [phone]) 230-264803-01-2025 Radiology [facility] [place] [address] [place] [address] CT Scan Report Signed Patient: Bailee Traore MR#: Denia [id number] : 1945 Acct:[id number] Age/Sex: 79 / M ADM Date: 5 Loc: ER Room: Type: [facility] ER Attending Dr: Copies to: Nikos Lao DO~ Ordering Provider: Nikos Lao DO Date of Service: 01/26/25 CT/CT head/brain wo con: repeat, seizure, [place] CT BRAIN WITHOUT CONTRAST: CLINICAL HISTORY: Seizure, headache. COMPARISON: CT/CTA brain performed earlier today. TECHNIQUE: Contiguous axial unenhanced images were obtained through the brain. This CT exam was performed using one or more following dose reduction techniques: Automated exposure control, adjustmentof the mA and/or kV accordingto patient size, or use of iterative reconstruction technique. FINDINGS: Previously given contrast is still present limiting evaluation for hemorrhage. Once again demonstrated is a persistent hypodensity with loss of the groves/white matter differentiation involving the right parietotemporal region similar to theprior study with no definitive new areas of hemorrhage, midline shift or transtentorial herniation. There is associated sulcal effacement. No new areasof groves/white matter differentiation loss is noted. This appears to be superimposed on cortical atrophy and chronic microvascular ischemic changes. This Posterior fossa appears unremarkable. Visualized intraorbital contents demonstrate no acute findings. Visualized paranasal sinuses are clear. The surrounding soft tissues are normal. CT/CT head/brain wo con IMPRESSION: Evaluation for hemorrhage is limited due to previously given IV contrast. NO SIGNIFICANT CHANGE IN BRAIN FINDINGS COMPARED TO THE PRIOR STUDY FROM 7:45 AMTHIS MORNING. Impression dictated by: Omkar Combs Jr., D.O.01/26/2025 1:01 PM Dictation Location: [place] [address] Transcribed By: [facility] 01/26/25 1301 Dictated By: Omkar Combs Jr, DO 01/26/25 1255 Signed By: 01/26/25 1301 [facility]03-01-2025 Radiology Diagnostic study note [facility] Main [place] [address] [place] [address] CT Scan Report Signed Patient: Bailee Traore MR#: [id number] : 1945 Acct:[id number] Age/Sex: 79 / M ADM Date: 5 Loc: ER Room: Type: [facility] ER Attending Dr: Copies to: Nikos Lao DO~ Ordering Provider: Nikos Lao DO Date of Service: 01/26/25 CT/CT head/brain wo con: repeat, seizure, [place] CT BRAIN WITHOUT CONTRAST: CLINICAL HISTORY: Seizure, headache. COMPARISON: CT/CTA brain performed earlier today. TECHNIQUE: Contiguous axial unenhanced images were obtained through the brain. This CT exam was performed using one or more following dose reduction techniques: Automated exposure control, adjustmentof the mA and/or kV accordingto patient size, or use of iterative reconstruction technique. FINDINGS: Previously given contrast is still present limiting evaluation for hemorrhage. Once again demonstrated is a persistent hypodensity with loss of the groves/white matter differentiation involving the right parietotemporal region similar to theprior study with no definitive new areas of hemorrhage, midline shift or transtentorial herniation. There is associated sulcal effacement. No new areasof groves/white matter differentiation loss is noted. This appears to be superimposed on cortical atrophy and chronic microvascular ischemic changes. This Posterior fossa appears unremarkable. Visualized intraorbital contents demonstrate no acute findings. Visualized paranasal sinuses are clear. The surrounding soft tissues are normal. CT/CT head/brain wo con IMPRESSION: Evaluation for hemorrhage is limited due to previously given IV contrast. NO SIGNIFICANT CHANGE IN BRAIN FINDINGS COMPARED TO THE PRIOR STUDY FROM 7:45 AMTHIS MORNING. Impression dictated by: Omkar Combs Jr., D.OYuni01/26/2025 1:01 PM Dictation Location: [facility] Transcribed By: ROSA 01/26/25 1301 Dictated By: Omkar Combs Jr, DO 01/26/25 1255 Signed By: 01/26/25 1301 [facility]03-01-2025 Radiology Diagnostic study note [facility] [place] [address] CT Scan Report Signed Patient: Bailee Traore MR#: [id number] : 1945 Acct:[id number] Age/Sex: 79 / M ADM Date: 5 Loc: ER Room: Type: PRE ER Attending Dr: Copies to: Nikos Lao DO~ Ordering Provider: Nikos Lao DO Date of Service: 01/26/25 CT/CT head/brain perfusion: stroke, abnormal cta CT head/brain perfusion 01/26/2025 9:55 AM SIGN AND SYMPTOMS: New onset A. fib, left sided neglect CONTRAST: 50 ml of intravenous Isoview 370 TECHNIQUE: Multidetector CT axial slices of the brain were obtained without IV contrast. Sagittal, coronal, and 3-D reconstructions were performed and viewed on a separate workstation. Dynamic acquisition CT perfusion images were obtainedin 18 seperate phases during and after administration of 50 mL Omnipaque 350 intravenously. Arterial and venous time activity curves were generated with regions of interest drawn over the arterial and venous circulations. Color maps for mean transit time, cerebral blood flow, cerebral perfusion, and time to peakperfusion were generated in the axial plane. Dynamic 3-D CT angiography images were reconstructed in sagittal coronal and axial plane and viewed on a separate workstation. CT was performed with one or more of the following dose reduction techniques: Automated exposure control, adjustment of the mA and/or kV accordingto patient size, or use of iterative reconstruction technique. COMPARISON: 01/26/2025. FINDINGS: Arterial input function CASSIE selected: Right ICA terminus. Venous outflow function CASSIE: Torcula. Parametric maps: CTP characteristics {for area of interest}: + CBF {cerebral blood flow}: Symmetric. + Tmax: Symmetric. + CBV {cerebral blood volume}: Asymmetric elevated cerebral blood volume is noted in the anterior aspect of the left anterior cerebral artery/middle cerebral artery territory. Vascular territory involved: Left middle cerebral artery/anterior cerebral artery territory Tissue involved: Left frontal lobe Mismatch volume: 0 mL Mismatch ratio: None CT/CT head/brain perfusion IMPRESSION: Asymmetric elevated cerebral blood volume is noted in the anterior aspect of theleft anterior cerebral artery/middle cerebral artery territory. This may represent sequelae of remote ischemic injury. Otherwise symmetric perfusion indices. Mismatch volume: 0 mL Mismatch ratio: None Impression dictated by: Emmanuel Grijalva M.D.01/26/2025 10:54 AM Dictation Location: [place] [address] Transcribed By: [facility] 01/26/25 1054 Dictated By: Emmanuel Grijalva II, MD 01/26/25 1044 Signed By: 01/26/25 1054 [facility] Work Phone: 1(386) 684-559203-01-2025 [facility]iology [facility] Main [place] [address] [place], [place] [id number] CT Scan Report Signed Patient: Bailee Traore MR#: [id number] : 1945 Acct:[id number] Age/Sex: 79 / M ADM Date: 5 Loc: ER Room: Type: PRE ER Attending Dr: Copies to: Nikos Lao DO~ Ordering Provider: Nikos Lao DO Date of Service: 01/26/25 CT/CT head/brain perfusion: stroke, abnormal cta CT head/brain perfusion 01/26/2025 9:55 AM SIGN AND SYMPTOMS: New onset A. fib, left sided neglect CONTRAST: 50 ml of intravenous Isoview 370 TECHNIQUE: Multidetector CT axial slices of the brain were obtained without IV contrast. Sagittal, coronal, and 3-D reconstructions were performed and viewed on a separate workstation. Dynamic acquisition CT perfusion images were obtainedin 18 seperate phases during and after administration of 50 mL Omnipaque 350 intravenously. Arterial and venous time activity curves were generated with regions of interest drawn over the arterial and venous circulations. Color maps for mean transit time, cerebral blood flow, cerebral perfusion, and time to peakperfusion were generated in the axial plane. Dynamic 3-D CT angiography images were reconstructed in sagittal coronal and axial plane and viewed on a separate workstation. CT was performed with one or more of the following dose reduction techniques: Automated exposure control, adjustment of the mA and/or kV accordingto patient size, or use of iterative reconstruction technique. COMPARISON: 01/26/2025. FINDINGS: Arterial input function CASSIE selected: Right ICA terminus. Venous outflow function CASSIE: Torcula. Parametric maps: CTP characteristics {for area of interest}: + CBF {cerebral blood flow}: Symmetric. + Tmax: Symmetric. + CBV {cerebral blood volume}: Asymmetric elevated cerebral blood volume is noted in the anterior aspect of the left anterior cerebral artery/middle cerebral artery territory. Vascular territory involved: Left middle cerebral artery/anterior cerebral artery territory Tissue involved: Left frontal lobe Mismatch volume: 0 mL Mismatch ratio: None CT/CT head/brain perfusion IMPRESSION: Asymmetric elevated cerebral blood volume is noted in the anterior aspect of theleft anterior cerebral artery/middle cerebral artery territory. This may represent sequelae of remote ischemic injury. Otherwise symmetric perfusion indices. Mismatch volume: 0 mL Mismatch ratio: None Impression dictated by: Emmanuel Grijalva M.D.01/26/2025 10:54 AM Dictation Location: [place] [address] Transcribed By: ROSA 01/26/25 1054 Dictated By: Emmanuel Grijalva II, MD 01/26/25 1044 Signed By: 01/26/25 1054 [facility] Work Phone: [phone]) 904-975803-01-2025 [facility]iology [facility] Main [place] [address] [place] [address] CT Scan Report Signed Patient: Bailee Traore MR#: [id number] : 1945 Acct:[id number] Age/Sex: 79 / M ADM Date: 5 Loc: ER Room: Type: PRE ER Attending Dr: Copies to: Nikos Lao DO~ Ordering Provider: Nikos Lao DO Date of Service: 01/26/25 CT/CT angio head: weakness L ([id number]) CT/CT angio neck: L weakness ([id number]) CT/CT head stroke alert wo con: acute stroke/neuro deficits CT head stroke alert wo con, CT angio neck, CT angio head 01/26/2025 7:31 AM SIGNS AND SYMPTOMS: New onset of A. fib. Left-sided extension. Staring to the right. TECHNIQUE: Multi-detector CT angiography axial slices of the head and neck were obtained before andduring intravenous administration of IV contrast material. Sagittal, coronal, and 3-D reconstructions were performed and viewed on a separate workstation. CT was performed with one or more of the following dose reduction techniques: Automated exposure control, adjustment of the mA and/or kVaccording to patient size, or use of iterative reconstruction technique. Stenoses were measured using the NASCET criteria. COMPARISON: None. FINDINGS: Noncontrast head CT: Loss of groves-white differentiation is seen involving the right parietotemporal region suggestive ofsubacute area of ischemia. This appears to be superimposedon cortical atrophy and chronic microvascular ischemic changes. No midline shift or transtentorial herniation. Posterior fossa appears unremarkable. Visualized intraorbital contents demonstrate no acute findings. Visualized paranasal sinuses are clear. The surrounding soft tissues are normal. Findings were discussed with Dr. Lao by the teleradiology service 7:57 AM 01/26/2025 CTA HEAD: Posterior inferior cerebellar arteries : patent Basilar artery: patent Superior cerebellar arteries: patent Posterior cerebral arteries: Patent. origins. Intracranial segments of the internal carotid arteries: patent MCA: Left MCA is patent. Posterior vessels involving the M3 segment in the region of hypodensity suspicious for distal occlusion. M1 and M2 segments of the right MCA appear unremarkable. GAMAL: patent Anterior Communicating artery: patent Posterior Communicating arteries: Not present. CTA NECK: Vertebral arteries : Right vertebral artery dominance. Patent. Normal origins. Common Carotid arteries: patent Internal Carotid arteries: Mild calcification. Plaquing involving the carotid bulbs. Mild calcification proximal right ICA causing less than 50% stenosis. Left ICA appears unremarkable. No gross central airway mass. No soft tissue swelling or lymphadenopathy. Visualized lung apices demonstrate emphysema. Osseous structures demonstrate cervical spondylosis. CT/CT head stroke alert wo con IMPRESSION: Hypodensity involving the right parietotemporal region with paucity of vessels involving the M3 segment of the right MCA within this region suggestive of subacute ischemia with occlusion. Impression dictated by: Omkar Combs Jr., D.OYuni01/26/2025 9:04 AM Dictation Location: [facility] Transcribed By: [facility] 01/26/25 0904 Dictated By: Omkar Comsb Jr, DO 01/26/25 0856 Signed By: 01/26/25 0904 [facility]03-01-2025 Radiology Diagnostic study note [facility] Main [place] [address] [place] [address] CT Scan Report Signed Patient: Bailee Traore MR#: [id number] : 1945 Acct:[id number] Age/Sex: 79 / M ADM Date: 5 Loc: ER Room: Type: PRE ER Attending Dr: Copies to: Nikos Lao DO~ Ordering Provider: Nikos Lao DO Date of Service: 01/26/25 CT/CT angio head: weakness L ([id number]) CT/CT angio neck: L weakness ([id number]) CT/CT head stroke alert wo con: acute stroke/neuro deficits CT head stroke alert wo con, CT angio neck, CT angio head 01/26/2025 7:31 AM SIGNS AND SYMPTOMS: New onset of A. fib. Left-sided extension. Staring to the right. TECHNIQUE: Multi-detector CT angiography axial slices of the head and neck were obtained before andduring intravenous administration of IV contrast material. Sagittal, coronal, and 3-D reconstructions were performed and viewed on a separate workstation. CT was performed with one or more of the following dose reduction techniques: Automated exposure control, adjustment of the mA and/or kVaccording to patient size, or use of iterative reconstruction technique. Stenoses were measured using the NASCET criteria. COMPARISON: None. FINDINGS: Noncontrast head CT: Loss of groves-white differentiation is seen involving the right parietotemporal region suggestive ofsubacute area of ischemia. This appears to be superimposedon cortical atrophy and chronic microvascular ischemic changes. No midline shift or transtentorial herniation. Posterior fossa appears unremarkable. Visualized intraorbital contents demonstrate no acute findings. Visualized paranasal sinuses are clear. The surrounding soft tissues are normal. Findings were discussed with Dr. Lao by the teleradiology service 7:57 AM 01/26/2025 CTA HEAD: Posterior inferior cerebellar arteries : patent Basilar artery: patent Superior cerebellar arteries: patent Posterior cerebral arteries: Patent. origins. Intracranial segments of the internal carotid arteries: patent MCA: Left MCA is patent. Posterior vessels involving the M3 segment in the region of hypodensity suspicious for distal occlusion. M1 and M2 segments of the right MCA appear unremarkable. GAMAL: patent Anterior Communicating artery: patent Posterior Communicating arteries: Not present. CTA NECK: Vertebral arteries : Right vertebral artery dominance. Patent. Normal origins. Common Carotid arteries: patent Internal Carotid arteries: Mild calcification. Plaquing involving the carotid bulbs. Mild calcification proximal right ICA causing less than 50% stenosis. Left ICA appears unremarkable. No gross central airway mass. No soft tissue swelling or lymphadenopathy. Visualized lung apices demonstrate emphysema. Osseous structures demonstrate cervical spondylosis. CT/CT head stroke alert wo con IMPRESSION: Hypodensity involving the right parietotemporal region with paucity of vessels involving the M3 segment of the right MCA within this region suggestive of subacute ischemia with occlusion. Impression dictated by: Omkar Combs Jr., D.O.01/26/2025 9:04 AM Dictation Location: [place] [address] Transcribed By: [facility] 01/26/25 0904 Dictated By: Omkar Combs Jr, DO 01/26/25 0856 Signed By: 01/26/25 0904 [facility] noteNo assessment information availableSelect Medical [facility] DublinEvaluation note* Diagnosis Onset Date Resolution Status Admit Date Seizure disorder chronic Septembe r 2024 10:10am Metabolic encephalopathy resolved August 06, 2025 10:10am [facility] Work Phone: Reason for referral (narrative)No reason for referral information availableC[facility] Work Phone: Chief Complaint and Reason for Visit Chief Complaint bee sting left arm Chief Complaint Admit Date left sided facial droop January 26, 2025 12:51pm Reason for Visit Admit Date Atrial fibrillation with RVR January 26, 2025 12:51pm Seizure January 26, 2025 12:5 1pm Stroke January 26, 2025 12:5 1pm Chief Complaint Admit Date left sided facial droop January 26, 2025 12:51pm left sided facial droop January 28, 2025 1:03pm left sided facial droop January 28, 2025 1:30pm Reason for Visit Admit Date Atrial fibrillation with RVR January 26, 2025 12:51pm Cerebral infarction involving right midd le cerebral artery January 26, 2025 12:51pm Hemiballismus January 26, 2025 12:5 1pm Impaired mobility and activities of brittany y living January 26, 2025 12:51pm Occlusion of middle cerebral artery Luis Enrique 2024 12:51pm Seizure January 26, 2025 12:5 1pm Seizure disorder, focal motor January 26, 2025 12:51pm Stroke January 26, 2025 12:5 1pm Chief Complaint Admit Date left sided facial droop January 26, 2025 12:51pm left sided facial droop January 28, 2025 1:03pm left sided facial droop January 28, 2025 1:30pm seizure January 30, 2025 8:45 pm seizure January 31, 2025 8:01 am seizure February 07, 2025 1:5 9pm seizure February 14, 2025 8:1 4am Reason for Visit Admit Date Atrial fibrillation with RVR January 26, 2025 12:51pm Cerebral infarction involving right midd le cerebral artery January 26, 2025 12:51pm Hemiballismus January 26, 2025 12:5 1pm Impaired mobility and activities of brittany y living January 26, 2025 12:51pm Occlusion of middle cerebral artery Luis Enrique h 2024 12:51pm Seizure January 26, 2025 12:5 1pm Seizure disorder, focal motor January 26, 2025 12:51pm Stroke January 26, 2025 12:5 1pm Atrial fibrillation January 30, 2025 8:45 pm Cerebritis January 30, 2025 8:45 pm Dysphagia January 30, 2025 8:45 pm Hyperlipidemia January 30, 2025 8:45 pm Hypothyroid January 30, 2025 8:45 pm 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:45pm Atrial fibrillation with RVR January 30, 2025 8:45pm 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, 2025 8:45 pm Impaired mobility and activities of brittany y living January 30, 2025 8:45pm Occlusion of middle cerebral artery Luis Enrique h 2024 8:45pm Seizure January 30, 2025 8:45 pm Seizure disorder, 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, 2025 8:45pm Chief Complaint Admit Date left sided facial droop January 26, 2025 12:51pm left sided facial droop January 28, 2025 1:03pm left sided facial droop January 28, 2025 1:30pm seizure January 30, 2025 8:45 pm seizure January 31, 2025 8:01 am seizure February 07, 2025 1:5 9pm seizure February 14, 2025 8:1 4am Unknown March 01, 2025 3:30 pm Chief Complaint Admit Date left sided facial droop January 26, 2025 12:51pm left sided facial droop January 28, 2025 1:03pm left sided facial droop January 28, 2025 1:30pm seizure January 30, 2025 8:45 pm seizure January 31, 2025 8:01 am seizure February 07, 2025 1:5 9pm seizure February 14, 2025 8:1 4am Unknown March 01, 2025 3:30 pm C71.1 March 15, 2025 5:1 8pm Chief Complaint Admit Date left sided facial droop January 26, 2025 12:51pm left sided facial droop January 28, 2025 1:03pm left sided facial droop January 28, 2025 1:30pm seizure January 30, 2025 8:45 pm seizure January 31, 2025 8:01 am seizure February 07, 2025 1:5 9pm seizure February 14, 2025 8:1 4am Unknown March 01, 2025 3:30 pm C71.1 March 15, 2025 5:1 8pm [facility] 01/28April 17, 2025 12:51 pm Reason for Visit Admit Date Atrial fibrillation with RVR January 26, 2025 12:51pm Cerebral infarction involving right midd le cerebral artery January 26, 2025 12:51pm Hemiballismus January 26, 2025 12:5 1pm Impaired mobility and activities of brittany y living January 26, 2025 12:51pm Occlusion of middle cerebral artery Luis Enrique h 2024 12:51pm Seizure January 26, 2025 12:5 1pm Seizure disorder, focal motor January 26, 2025 12:51pm Stroke January 26, 2025 12:5 1pm Atrial fibrillation January 30, 2025 8:45 pm Cerebritis January 30, 2025 8:45 pm Dysphagia January 30, 2025 8:45 pm Hyperlipidemia January 30, 2025 8:45 pm Hypothyroid January 30, 2025 8:45 pm 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: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 Atrial fibrillation with RVR January 30, 2025 8:45pm 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, 2025 8:45 pm Impaired mobility and activities of brittany y living January 30, 2025 8:45pm Occlusion of middle cerebral artery Luis Enrique h 2024 8:45pm Seizure January 30, 2025 8:45 pm Seizure disorder, 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, 2025 8:45pm 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 of [place] heart [place] April 17, 2025 12:51pm HTN (hypertension) April 17, 2025 12:51 pm Hyperlipidemia April 17, 2025 12:51 pm Paroxysmal atrial fibrillation April 17, 2025 12:51pm S/P coronary artery stent placement April 17, 2025 12:51pm Reason for Visit Admit Date Seizure disorder August 06, 2025 10:10am Metabolic encephalopathy August 06, 2025 10:10am Advance Directives No Advanced Directives Records Found Advance Directive Response Recorded Date/ Time Advance Directives No August 29, 2021 4:10pm Advance Directive Response Recorded Date/ Time Advance Directives No August 29, 2021 5:10pm Summary Purpose Family History No Family History Records FoundNo Family History Records Found Additional Source Comments Goals (unrecognized section and content) Goals may be documented in a n alternate sectionGoals may be documented in an alternate sectionGoals may be documented in an alternate section Care Teams (unrecognized sec tion and content) Team Status: Active Member Role Status Dates Lucille Engel (Clinic) , [facility] Primary Care Prov ider Active Team Status: Active Member Role Status Dates Lucille Engel (Clinic) , [facility] Primary Care Provider Active Start: January 26, 2025 Nikos Lao DO Emergency Provider Active Sta rt: January 26, 2025 Bennett Navarro MD Admit Provide r, Attending Provider Active Start: January 26, 2025 Team Status: Inactive Member Role Status Dates Lucille Engel (Clinic) , [facility] Primary Care Provider Active Start: January 26, 2025 End: January 30, 2025 Nikos Lao DO Emergency Provider Active Sta rt: January 26, 2025 End: January 30, 2025 Bennett Navarro MD Admit Provider Active Start: January 26, 2025 End: January 30, 2025 Lady Parks DO Other Provider Active Start: January 26, 2025 End: January 30, 2025 Mariela Solorzano MD Other Provider Active Start: [facility] 2024 End: January 30, 2025 Omkar Louie MD Other Provider Active Start: Denia herrera 2024 End: January 30, 2025 Romy Leon APRN Other Provider Active St art: January 26, 2025 End: January 30, 2025 Vito Mullins Jr, DO Other Provider Active S tart: January 26, 2025 End: January 30, 2025 Oren Lara MD Other Provider Active Start: January 26, 2025 End: January 30, 2025 Kofi Mauricio MD Attending Provider Active Start: January 26, 2025 End: January 30, 2025 Team Status: Active Member Role Status Dates Lucille Engel (Clinic) , [facility] Primary Care Provider Active Start: January 28, 2025 Nikos Lao DO Emergency Provider Active Sta rt: January 28, 2025 Bennett Navarro MD Admit Provider Active Start: January 28, 2025 Lady Parks DO Other Provider Active Start: January 28, 2025 Savannah Melgar RN Other Provider Active Star t: January 28, 2025 Forest Sarmiento MD Other Provider Active Start: [facility] 2024 Jayme Pearce MD Other Provider Active Start: January 28 Priscilla Cuevas MD Other Provider Active Start: January 28, 2025 Mariela Solorzano MD Other Provider Active Start: [facility] 2024 Omkar Louie MD Other Provider Active Start: [facility] 2024 Romy Leon APRN Other Provider Active St art: January 28, 2025 Vito Mullins Jr, DO Other Provider Active S tart: January 28, 2025 Oren Lara MD Attending Pr ovider, Other Provider Active Start: January 28, 2025 Kofi Mauricio MD Other Provider Active Sta rt: January 28, 2025 Team Status: Active Member Role Status Dates Lucille Engel (Clinic) , [facility] Primary Care Provider Active Start: January 28, 2025 Nikos Lao DO Emergency Provider Active Sta rt: January 28, 2025 Bennett Navarro MD Admit Provider Active Start: January 28, 2025 Lady Parks DO Other Provider Active Start: January 28, 2025 Savannah Melgar RN Other Provider Active Star t: January 28, 2025 Forest Sarmiento MD Other Provider Active Start: [facility] 2024 Jayme Pearce MD Attending Provider, Other Provider Active Start: January 28, 2025 Priscilla Cuevas MD Other Provider Active Start: January 28, 2025 Mariela Solorzano MD Other Provider Active Start: [facility] 2024 Omkar Louie MD Other Provider Active Start: [facility] 2024 Romy Leon APRN Other Provider Active St art: January 28, 2025 Vito Mullins Jr, DO Other Provider Active S tart: January 28, 2025 Oren Lara MD Other Provider Active Start: January 28, 2025 Kofi Mauricio MD Other Provider Active Sta rt: January 28, 2025 Team Status: Inactive Member Role Status Dates Lucille Engel (Clinic) , [facility] Primary Care Provider Active Start: January 30, 2025 End: February 15, 2025 Omkar Louie MD Admit Provider, Atte chrising Provider Active Start: January 30, 2025 End: February 15, 2025 Dorita Mazariegos Other Provider Active Start: January 30, 2025 End: February 15, 2025 Callum Cross , PhD Other Provider Active S tart: January 30, 2025 End: February 15, 2025 Lady Parks , DO Other Provider Active Start: January 30, 2025 End: February 15, 2025 Brandon Padron MD Other Provider Active Start : January 30, 2025 End: February 15, 2025 Khurram Eugene , Other Provider Active Start: January 30, 2025 End: February 15, 2025 Bartolome Amezquita , DO Other Provider Active Start: January 30, 2025 End: February 15, 2025 Petrona Torres APRN Other Provider Active St art: January 30, 2025 End: February 15, 2025 Yesenia Kidd , CREATIVE SERVICES COORDINATOR-C Other Provider Active Sta rt: January 30, 2025 End: February 15, 2025 Shona Henriquez APRN-SPORTS DIRECTOR-C Other Provider Active Start: January 30, 2025 End: February 15, 2025 Telma Beth , EMIYL Other Provider Active Star t: January 30, 2025 End: February 15, 2025 Soraya Baron , EMILY Other Provider Active Start : January 30, 2025 End: February 15, 2025 Sandy Oquendo , EMILY Other Provider Active Star t: January 30, 2025 End: February 15, 2025 Ksenia Borja , EMILY Other Provider Active Start: Denia herrera 2024 End: February 15, 2025 Nivia Santana , RN Other Provider Active Start: [facility] 2024 End: February 15, 2025 An Mariano MD Other Provider Active Start: January 30, 2025 End: February 15, 2025 Mohamud Brown DO Other Provider Active Start : January 30, 2025 End: February 15, 2025 Boyd Masters MD Other Provider Active Start : January 30, 2025 End: February 15, 2025 West Adam DO Other Provider Active Start: January 30, 2025 End: February 15, 2025 Roberto Proctor MD Other Provider Active Start: January 30, 2025 End: February 15, 2025 Elba Sheppard MD Other Provider Active Start : January 30, 2025 End: February 15, 2025 Bailee Carballo DO Other Provider Active St art: January 30, 2025 End: February 15, 2025 Kev Urbina MD Other Provider Active Start: [facility] 2024 End: February 15, 2025 Jillian Mendez APRN Other Provider Active Start: January 30, 2025 End: February 15, 2025 Shantelle Newton MD Other Provider Active Start: January 30, 2025 End: February 15, 2025 Alberto Jacob MD Other Provider Active Start: [facility] 2024 End: February 15, 2025 George Monsalve MD Other Provider Active Start: January 30, 2025 End: February 15, 2025 Carli Small MD Other Provider Active Start: January 30, 2025 End: February 15, 2025 Bailee Boggs DO Other Provider Active Start: January 30, 2025 End: February 15, 2025 Olya Garcia MD Other Provider Active Start: [facility] 2024 End: February 15, 2025 Ronan Michel MD Other Provider Active Start: [facility] 2024 End: February 15, 2025 Luli Oates NP-C Other Provider Active St art: January 30, 2025 End: February 15, 2025 Rosy Aguirre APRN Other Provider Active Star t: January 30, 2025 End: February 15, 2025 Bennett Navarro MD Other Provider Active Start: January 30, 2025 End: February 15, 2025 Nilesh Momin MD Other Provider Active Start: [facility] 2024 End: February 15, 2025 Gilles Gibbs MD Other Provider Active Start: [facility] 2024 End: February 15, 2025 Tatyana Drummond MD Other Provider Active Star t: January 30, 2025 End: February 15, 2025 Lizandro Corona MD Other Provider Active Start: [facility] 2024 End: February 15, 2025 Rashmi Almanzar DO Other Provider Active Start: [facility] 2024 End: February 15, 2025 Nate Adkins DO Other Provider Active Start : January 30, 2025 End: February 15, 2025 Priscilla Rock APRN Other Provider Active Start: January 30, 2025 End: February 15, 2025 John Nolan , Other Provider Active Start: January 30, 2025 End: February 15, 2025 Kofi Mauricio MD Other Provider Active Sta rt: January 30, 2025 End: February 15, 2025 Theresa Mireles APRN Other Provider Active Start : January 30, 2025 End: February 15, 2025 Rin Kellogg APRN Other Provider Active St art: January 30, 2025 End: February 15, 2025 Geo Hernandez MD Other Provider Active Start: [facility] 2024 End: February 15, 2025 Puma Miller MD Other Provider Active S tart: January 30, 2025 End: February 15, 2025 Salomón Cox DO Other Provider Active Star t: January 30, 2025 End: February 15, 2025 Pernell Modi DO Other Provider Active Start: January 30, 2025 End: February 15, 2025 Samuel Gibbs MD Other Provider Active Start: January 30, 2025 End: February 15, 2025 Dayna Garza MD Other Provider Active Start: January 30 End: February 15, 2025 Petrona Murphy APRN Other Provider Active Star t: January 30, 2025 End: February 15, 2025 Jasiel Javier MD Other Provider Active Start: [facility] 2024 End: February 15, 2025 Faustino Payton MD Other Provider Active Start: [facility] 2024 End: February 15, 2025 Omkar Wagner MD Other Provider Active Start: January 30, 2025 End: February 15, 2025 Kev Pritchett MD Other Provider Active Start : January 30, 2025 End: February 15, 2025 Alessio Pickering MD Other Provider Active Start: [facility] 2024 End: February 15, 2025 Radha Juárez APRN Other Provider Active Sta rt: January 30, 2025 End: February 15, 2025 Jolie Benítez APRN Other Provider Active Start: January 30, 2025 End: February 15, 2025 Esmer Valverde RN Other Provider Active Start: [facility] 2024 End: February 15, 2025 Team Status: Active Member Role Status Dates Lucille Engel (Clinic) , [facility] Primary Care Provider Active Start: January 31, 2025 Omkar Louie MD Admit Provider, Atte nding Provider, Other Provider Active Start: January 31, 2025 Telma Beth , RN Other Provider Active Star t: January 31, 2025 Soraya Baron , EMILY Other Provider Active Start : January 31, 2025 Sandy Oquendo , EMILY Other Provider Active Star t: January 31, 2025 Ksenia Borja , EMILY Other Provider Active Start: [facility] 2024 Nivia Santana , EMILY Other Provider Active Start: [facility] 2024 An Mariano MD Other Provider Active Start: January 31, 2025 Mohamud Brown DO Other Provider Active Start : January 31, 2025 Boyd Masters MD Other Provider Active Start : January 31, 2025 West Adam DO Other Provider Active Start: January 31, 2025 Roberto Proctor MD Other Provider Active Start: January 31, 2025 Elba Sheppard MD Other Provider Active Start : January 31, 2025 Bailee Carballo DO Other Provider Active St art: January 31, 2025 Kev Urbina MD Other Provider Active Start: [facility] 2024 Jillian Mendez APRN Other Provider Active Start: January 31, 2025 Shantelle Newton MD Other Provider Active Start: January 31, 2025 Alberto Jacob MD Other Provider Active Start: [facility] 2024 George Monsalve MD Other Provider Active Start: January 31, 2025 Carli Small MD Other Provider Active Start: January 31, 2025 Bailee Boggs DO Other Provider Active Start: January 31, 2025 Olya Garcia MD Other Provider Active Start: [facility] 2024 Ronan Michel MD Other Provider Active Start: Jan 2024 Luli Oates NP-Natali Other Provider Active St art: January 31, 2025 Rosy Aguirre APRN Other Provider Active Star t: January 31, 2025 Bennett Navarro MD Other Provider Active Start: January 31, 2025 Nilesh Momin MD Other Provider Active Start: [facility] 2024 Gilles Gibbs MD Other Provider Active Start: [facility] 2024 Tatyana Drummond MD Other Provider Active Star t: January 31, 2025 Lizandro Corona MD Other Provider Active Start: [facility] 2024 Rashmi Almanzar DO Other Provider Active Start: [facility] 2024 Nate Adkins , Other Provider Active Start : January 31, 2025 Priscilla Rock APRN Other Provider Active Start: January 31, 2025 John Nolan DO Other Provider Active Start: January 31, 2025 Kofi Mauricio MD Other Provider Active Sta rt: January 31, 2025 Theresa Mireles APRN Other Provider Active Start : January 31, 2025 Rin Kellogg APRN Other Provider Active St art: January 31, 2025 Geo Hernandez MD Other Provider Active Start: [facility] 2024 Puma Miller MD Other Provider Active S tart: January 31, 2025 Salomón Cox , Other Provider Active Star t: January 31, 2025 Pernell Modi DO Other Provider Active Start: January 31, 2025 Samuel Gibbs MD Other Provider Active Start: January 31, 2025 Dayna Garza MD Other Provider Active Start: January 31 Petrona Murphy APRN Other Provider Active Star t: January 31, 2025 Jasiel Javier MD Other Provider Active Start: [facility] 2024 Faustino Payton MD Other Provider Active Start: [facility] 2024 Omkar Wagner MD Other Provider Active Start: January 31, 2025 Kev Pritchett MD Other Provider Active Start : January 31, 2025 Alessio Pickering MD Other Provider Active Start: [facility] 2024 Radha Juárez APRN Other Provider Active Sta rt: January 31, 2025 Jolie Benítez APRN Other Provider Active Start: January 31, 2025 Esmer Valverde RN Other Provider Active Start: [facility] 2024 Dorita Mazariegos Other Provider Active Start: January 31, 2025 Callum Cross , PhD Other Provider Active S tart: January 31, 2025 Lady Parks DO Other Provider Active Start: January 31, 2025 Brandon Padron MD Other Provider Active Start : January 31, 2025 Khurram Eugene DO Other Provider Active Start: January 31, 2025 Bartolome Amezquita DO Other Provider Active Start: January 31, 2025 Petrona Torres APRN Other Provider Active St art: January 31, 2025 NOLAN VivarC Other Provider Active Sta rt: January 31, 2025 Shona Henriquez SOILED LINEN DISTRIBUTOR-SPORTS DIRECTOR-C Other Provider Active Start: January 31, 2025 Team Status: Active Member Role Status Dates Lucille Engel (Clinic) , [facility] Primary Care Provider Active Start: February 07, 2025 Omkar Louie MD Admit Provider, Atte mting Provider, Other Provider Active Start: February 07, 2025 Dorita Mazariegos Other Provider Active Start: February 07, 2025 Callum Cross , PhD Other Provider Active S tart: February 07, 2025 Lady Parks DO Other Provider Active Start: February 07, 2025 Brandon Padron MD Other Provider Active Start : February 07, 2025 Khurram Eugene DO Other Provider Active Start: February 07, 2025 Bartolome Amezquita DO Other Provider Active Start: February 07, 2025 Petrona Torres APRN Other Provider Active St art: February 07, 2025 CARY Vivar Other Provider Active Sta rt: February 07, 2025 Shona Henriquez SOILED LINEN DISTRIBUTOR-SPORTS DIRECTOR-C Other Provider Active Start: February 07, 2025 Telma Beth , EMILY Other Provider Active Star t: February 07, 2025 Soraya Baron , EMILY Other Provider Active Start : February 07, 2025 Sandy Oquendo , EMILY Other Provider Active Star t: February 07, 2025 Ksenia Borja , EMILY Other Provider Active Start: javier 2024 Nivia Santana RN Other Provider Active Start: [facility] 2024 An Mariano MD Other Provider Active Start: February 07, 2025 Mohamud Brown DO Other Provider Active Start : February 07, 2025 Boyd Masters MD Other Provider Active Start : February 07, 2025 West Adam , Other Provider Active Start: February 07, 2025 Roberto Proctor MD Other Provider Active Start: February 07, 2025 Elba Sheppard MD Other Provider Active Start : February 07, 2025 Bailee Carballo DO Other Provider Active St art: February 07, 2025 Kev Urbina MD Other Provider Active Start: [facility] 2024 Jillian Mendez APRN Other Provider Active Start: February 07, 2025 Shantelle Newton MD Other Provider Active Start: February 07, 2025 Alberto Jacob MD Other Provider Active Start: [facility] 2024 George Monsalve MD Other Provider Active Start: February 07, 2025 Carli Small MD Other Provider Active Start: February 07, 2025 Bailee Boggs DO Other Provider Active Start: February 07, 2025 Olya Garcia MD Other Provider Active Start: [facility] 2024 Ronan Michel MD Other Provider Active Start: [facility] 2024 Luli Oates , CREATIVE SERVICES COORDINATOR-C Other Provider Active St art: February 07, 2025 Rosy Aguirre APRN Other Provider Active Star t: February 07, 2025 Bennett Navarro MD Other Provider Active Start: February 07, 2025 Nilesh Momin MD Other Provider Active Start: [facility] 2024 Gilles Gibbs MD Other Provider Active Start: [facility] 2024 Tatyana Drummond MD Other Provider Active Star t: February 07, 2025 Lizandro Corona MD Other Provider Active Start: [facility] 2024 Rashmi Almanzar , Other Provider Active Start: [facility] 2024 Nate Adkins , Other Provider Active Start : February 07, 2025 Priscilla Rock APRN Other Provider Active Start: February 07, 2025 John Nolan DO Other Provider Active Start: February 07, 2025 Kofi Mauricio MD Other Provider Active Sta rt: February 07, 2025 Theresa Mireles APRN Other Provider Active Start : February 07, 2025 Rin Kellogg , SOILED LINEN DISTRIBUTOR Other Provider Active St art: February 07, 2025 Geo Hernandez MD Other Provider Active Start: [facility] 2024 Puma Miller MD Other Provider Active S tart: February 07, 2025 Salomón Cox , DO Other Provider Active Star t: February 07, 2025 Pernell Modi , DO Other Provider Active Start: February 07, 2025 Samuel Gibbs MD Other Provider Active Start: February 07, 2025 Dayna Garza MD Other Provider Active Start: February 07, 2025 Petrona Murphy APRN Other Provider Active Star t: February 07, 2025 Jasiel Javier MD Other Provider Active Start: [facility] 2024 Faustino Payton MD Other Provider Active Start: [facility] 2024 Omkar Wagner MD Other Provider Active Start: February 07, 2025 Kev Pritchett MD Other Provider Active Start : February 07, 2025 Alessio Pickering MD Other Provider Active Start: [facility] 2024 Radha Juárez APRN Other Provider Active Sta rt: February 07, 2025 Jolie Benítez APRN Other Provider Active Start: February 07, 2025 Esmer Valverde RN Other Provider Active Start: [facility] 2024 Team Status: Active Member Role Status Dates Lucille Engel (Clinic) , [facility] Primary Care Provider Active Start: February 14, 2025 Omkar Louie MD Admit Provider, Atte mting Provider, Other Provider Active Start: February 14, 2025 Dorita Mazariegos Other Provider Active Start: February 14, 2025 Callum Cross , PhD Other Provider Active S tart: February 14, 2025 Lady Parks , Other Provider Active Start: February 14, 2025 Brandon Padron MD Other Provider Active Start : February 14, 2025 Khurram Eugene DO Other Provider Active Start: February 14, 2025 Bartolome Amezquita , Other Provider Active Start: February 14, 2025 Petrona Torres APRN Other Provider Active St art: February 14, 2025 Yesenia Kidd NP-C Other Provider Active Sta rt: February 14, 2025 Shona Henriquez , SOILED LINEN DISTRIBUTOR-SPORTS DIRECTOR-C Other Provider Active Start: February 14, 2025 Telma Beth , EMILY Other Provider Active Star t: February 14, 2025 Soraya Baron , EMILY Other Provider Active Start : February 14, 2025 Sandy Oquendo , EMILY Other Provider Active Star t: February 14, 2025 Ksenia Borja RN Other Provider Active Start: [facility] 2024 Nivia Santana RN Other Provider Active Start: [facility] 2024 An Mariano MD Other Provider Active Start: February 14, 2025 Mohamud Brown DO Other Provider Active Start : February 14, 2025 Boyd Masters MD Other Provider Active Start : February 14, 2025 West Adam DO Other Provider Active Start: February 14, 2025 Roberto Proctor MD Other Provider Active Start: February 14, 2025 Elba Sheppard MD Other Provider Active Start : February 14, 2025 Bailee Carballo DO Other Provider Active St art: February 14, 2025 Kev Urbina MD Other Provider Active Start: [facility] 2024 Jillian Mendez APRN Other Provider Active Start: February 14, 2025 Shantelle Newton MD Other Provider Active Start: February 14, 2025 Alberto Jacob MD Other Provider Active Start: [facility] 2024 George Monsalve MD Other Provider Active Start: February 14, 2025 Carli Small MD Other Provider Active Start: February 14, 2025 Bailee Boggs DO Other Provider Active Start: February 14, 2025 Olya Garcia MD Other Provider Active Start: [facility] 2024 Ronan Michel MD Other Provider Active Start: [facility] 2024 CARY Rubio Other Provider Active St art: February 14, 2025 Rosy Aguirre APRN Other Provider Active Star t: February 14, 2025 Bennett Navarro MD Other Provider Active Start: February 14, 2025 Nilesh Momin MD Other Provider Active Start: [facility] 2024 Gilles Gibbs MD Other Provider Active Start: [facility] 2024 Tatyana Drummond MD Other Provider Active Star t: February 14, 2025 Lizandro Corona MD Other Provider Active Start: [facility] 2024 Rashmi Almanzar , Other Provider Active Start: [facility] 2024 Nate Adkins , Other Provider Active Start : February 14, 2025 Priscilla Rock APRN Other Provider Active Start: February 14, 2025 John Nolan , Other Provider Active Start: February 14, 2025 Kofi Mauricio MD Other Provider Active Sta rt: February 14, 2025 Theresa Mireles APRN Other Provider Active Start : February 14, 2025 Rin Kellogg APRN Other Provider Active St art: February 14, 2025 Geo Hernandez MD Other Provider Active Start: [facility] 2024 Puma Miller MD Other Provider Active S tart: February 14, 2025 Salomón Cox , Other Provider Active Star t: February 14, 2025 Pernell Modi , Other Provider Active Start: February 14, 2025 Samuel Gibbs MD Other Provider Active Start: February 14, 2025 Dayna Garza MD Other Provider Active Start: February 14, 2025 Petrona Murphy APRN Other Provider Active Star t: February 14, 2025 Jasiel Javier MD Other Provider Active Start: [facility] 2024 Faustino Payton MD Other Provider Active Start: [facility] 2024 Omkar Wagner MD Other Provider Active Start: February 14, 2025 Kev Pritchett MD Other Provider Active Start : February 14, 2025 Alessio Pickering MD Other Provider Active Start: [facility] 2024 Radha Juárez APRN Other Provider Active Sta rt: February 14, 2025 Jolie Benítez APRN Other Provider Active Start: February 14, 2025 Esmer Valverde RN Other Provider Active Start: [facility] 2024 Team Status: Inactive Member Role Status Dates Karlo Gr DO Attending Provider Active Start : March 01, 2025 End: March 01, 2025 Team Status: Inactive Member Role Status Dates Omkar Louie MD Attending Provider Active Star t: March 15, 2025 End: March 15, 2025 Team Status: Active Member Role Status Dates NON STAFF Primary Care Provider Active Team Status: Inactive Member Role Status Dates Jayme Pearce MD Attending Provider Activ e Start: April 17, 2025 End: April 17, 2025 NON STAFF Primary Care Provider Active Start: April 17, 2025 End: April 17, 2025 Team Status: Inactive Member Role Status Dates NON STAFF Primary Care Provider Active Start: April 17, 2025 End: April 17, 2025 Jayme Pearce MD Attending Provider Activ e Start: April 17, 2025 End: April 17, 2025 Team Status: Active Member Role Status Dates Puma Novak , DO Primary Care Provider Active Team Status: Inactive Member Role Status Dates Puma Novak , DO Primary Care Provider Active Start: August 06, 2025 End: August 06, 2025 Shona Henriquez SOILED LINEN DISTRIBUTOR-SPORTS DIRECTOR-C Attending Provider Active Start: August 06, 2025 End: August 06, 2025 (unrecognized sect ion and content) No Status Records FoundNo Status Records Found INFORMATION SOURCE (unrecogn ized section and content) DATE CREATED AUTHOR 06/07/2025 [facility] DATE CREATED AUTHOR AUTHOR'S ORGANIZ ATION 09/06/2025 [facility] FOR RECORDS PERTAINING TO PATIENTS WHO ARE OR HAVE BEEN ENROLLED IN A CHEMICAL DEPENDENCY/SUBSTANCEABUSE PROGRAM, SOME INFORMATION MAY BE OMITTED. This clinical summary was aggregated from multiple sources. Caution should be exercised in using it in the provision of clinical care. This summary normalizes information from multiple sources, and as a consequence, information in this document may materially change the coding, format and clinical context of patient data. In addition, data may be omitted in some cases. CLINICAL DECISIONS SHOULD BE BASED ON THE PRIMARY CLINICAL RECORDS. [employer] provides no warranty or guarantee of the accuracy or completeness of information in this document.
[2025-09-11 13:57] LABS: Hematocrit 38.1 % (42.0-54.0); Hemoglobin 12.9 g/dL (14.0-18.0); Immature Granulocytes Abs Auto 0.04 10^3/uL (0.00-0.03); Immature Granulocytes Pct Auto 0.4 % (0.0-0.5); Lymphocytes Absolute Auto 0.9 10^3/uL (1.2-3.8); Mean Corpuscular HGB Conc 33.9 g/dL (29.9-35.2); Mean Corpuscular Hemoglobin 30.1 pg (25.9-34.0); Mean Corpuscular Volume 89.0 fL (80.0-94.0); Platelet Count 189 10^3/uL (150-450); Red Blood Count 4.28 10^6/uL (4.70-6.10); White Blood Count 9.6 10^3/uL (4.0-11.0)
[2025-09-11 14:08] LABS: Alanine Aminotransferase 30 U/L (16-63); Albumin Globulin Ratio 0.8; Albumin Level 3.3 g/dL (3.4-5.0); Alkaline Phosphatase 127 U/L (46-116); Anion Gap 12.0; Aspartate Amino Transferase 26 U/L (15-37); Blood Urea Nitrogen 14.0 mg/dL (7.0-18.0); Calcium 8.7 mg/dL (8.5-10.1); Carbon Dioxide 25.4 mmol/L (21.0-32.0); Chloride 99 mmol/L (98-107); Estimated GFR (African America >60 (>=60 mL/min/1.73m^2); Estimated GFR (Non-African Ame >60 (>=60 mL/min/1.73m^2); Globulin 4.4 g/dL; Glucose 113 mg/dL (74-106); Potassium 4.4 mmol/L (3.5-5.1); Sodium 132 mmol/L (136-145); Total Protein 7.7 g/dL (6.4-8.2)
--- NOTE | 2025-09-11 15:32 | PC.NURSE ---
1500 - pt assisted with urinal at this time. dr cha also at bedside informing pt of plan of care
--- NOTE | 2025-09-11 15:42 | PC.NURSE ---
gave update to [facility] staff, over the phone
[2025-09-11] MEDS: KETOROLAC TROMETHAMINE 30 MG/ML VIAL 15 MG IVP (15:52)
--- NOTE | 2025-09-11 16:26 | ECG_ITS ---
[facility] Test Date: 2025-09-11 Pat Name: BAILEE TRAORE Department: Room: [facility] Gender: Male [employer] [place]: : 1945 Requested By: [id number] Order Number: [id number] Reading MD: DAVY COPE M.D. Measurements Intervals [place] Rate: 84 P: 53 SD: 171 QRS: 51 QRSD: 101 T: 63 QT: 390 QTc: 463 Interpretive Statements SINUS RHYTHM Cannot rule out anteroseptal myocardial infarct, age undetermined Abnormal ECG No previous ECG available for comparison Electronically Signed On 09-11-2025 18:06:52 EDT by DAVY COPE M.D.
--- NOTE | 2025-09-11 16:29 | PM.HP ---
HPI H&P: HPI History of Present Illness Chief complaint: LT HIP FRACTURE Narrative: Patient is an 80 years old male with history of hypertension, hyperlipidemia and history of seizure disorder, by the EMS to the ER after he tripped and fell in the [place]. Pt reports that he was standing and trying to put something on his night stand and fell. Denies hitting his head. Pt denies syncope or LOC. Denies chest pain, SOB, dizziness or lightheadedness. Opioid HPI Opioid Management Most Recent Pain and Opioid Data: Last Pain Scale 8 Today, 17:00 Last Pain Assessment Today, 17:00 Last ORT Total Score 0 Today, 16:55 Last ORT Risk Category Low Risk Today, 16:55 Review of Systems ROS Status of ROS 10 or more systems reviewed and unremarkable except as noted in history and below [facility] Medical History Other reduced mobility ?Z74.09 - Other reduced mobility (ICD-10) Edema, unspecified ?R60.9 - Edema, unspecified (ICD-10) Disorder of the skin and subcutaneous tissue, unspecified ?L98.9 - Disorder of the skin and subcutaneous tissue, unspecified (ICD-10) Unspecified convulsions ?R56.9 - Unspecified convulsions (ICD-10) Disorientation, unspecified ?R41.0 - Disorientation, unspecified (ICD-10) Weakness ?R53.1 - Weakness (ICD-10) Retention of urine, unspecified ?R33.9 - Retention of urine, unspecified (ICD-10) Constipation ?K59.00 - Constipation, unspecified (ICD-10) GERD (gastroesophageal reflux disease) ?K21.9 - Gastro-esophageal reflux disease without esophagitis (ICD-10) Dysphagia ?R13.10 - Dysphagia, unspecified (ICD-10) Hypothyroid ?E03.9 - Hypothyroidism, unspecified (ICD-10) Hyperlipidemia ?E78.5 - Hyperlipidemia, unspecified (ICD-10) Unspecified atrial fibrillation ?I48.91 - Unspecified atrial fibrillation (ICD-10) 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 (ICD-10) Other seizures ?G40.89 - Other seizures (ICD-10) 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 ?I66.01 - 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 (ICD-10) Malignant neoplasm of frontal lobe ?C71.1 - Malignant neoplasm of frontal lobe (ICD-10) Encephalitis and encephalomyelitis, unspecified ?G04.90 - Encephalitis and encephalomyelitis, unspecified (ICD-10) Interstitial pulmonary disease, unspecified ?J84.9 - Interstitial pulmonary disease, unspecified (ICD-10) Disorder of brain, unspecified ?G93.9 - Disorder of brain, unspecified (ICD-10) Social History Highest level of school completed/degree received: 12th grade, no diploma Little interest or pleasure in doing things: not at all Feeling down, depressed, or hopeless: not at all Meds Home Medications and Allergies Home Medications ?Medication ?Instructions ?Recorded ?Confirmed ?Type acetaminophen 500 mg tablet 1,000 mg PO Q8H PRN fever or pain 09/11/25 09/11/25 History (Tylenol Extra Strength) albuterol sulfate 2.5 mg/3 mL 1.25 mg inhalation QID PRN 09/11/25 09/11/25 History (0.083 %) solution for nebulization shortness of breath or wheezing ammonium lactate 12 % lotion 1 applic topical TID PRN dry skin 09/11/25 09/11/25 History aspirin 81 mg chewable tablet 81 mg PO DAILY 09/11/25 09/11/25 History atorvastatin 80 mg tablet 80 mg PO DAILY 09/11/25 09/11/25 History budesonide-formoterol HFA 160 2 inh inhalation Q12H 09/11/25 09/11/25 History mcg-4.5 mcg/actuation aerosol inhaler (Symbicort) bupropion HCl 150 mg 24 hr tablet, 150 mg PO DAILY 09/11/25 09/11/25 History extended release dextromethorphan-guaifenesin 10 10 ml PO Q6H PRN cough 09/11/25 09/11/25 History mg-100 mg/5 mL oral syrup (Antitussive DM) escitalopram oxalate 10 mg tablet 10 mg PO DAILY 09/11/25 09/11/25 History fluticasone 232 mcg-salmeterol 14 1 inh inhalation Q12H 09/11/25 09/11/25 History mcg/actuation breath activated powdr ipratropium 0.5 mg-albuterol 3 mg 3 ml inhalation Q8H 09/11/25 09/11/25 History (2.5 mg base)/3 mL nebulization soln levetiracetam 1,000 mg tablet 1,000 mg PO Q12H 09/11/25 09/11/25 History levothyroxine 100 mcg tablet 100 mcg PO DAILY 09/11/25 09/11/25 History lisinopril 20 mg tablet 20 mg PO DAILY 09/11/25 09/11/25 History metoprolol succinate 50 mg 50 mg PO DAILY 09/11/25 09/11/25 History tablet,extended release 24 hr ondansetron 4 mg disintegrating 4 mg translingual Q6H PRN nausea 09/11/25 09/11/25 History tablet and vomiting pantoprazole 40 mg tablet,delayed 40 mg PO DAILY 09/11/25 09/11/25 History release polyethylene glycol 3350 17 gram 17 g PO DAILY 09/11/25 09/11/25 History oral powder packet (Miralax) tamsulosin 0.4 mg capsule 0.4 mg PO Q24H 09/11/25 09/11/25 History Allergies Allergy/AdvReac Type Severity Reaction Status Date / Time No Known Drug Allergies Allergy Verified 09/11/25 13:08 Exam Narrative Exam Narrative: General: Well-appearing and in no apparent distress. Skin: Warm, dry, no pallor noted. No rash. Head: Normocephalic, atraumatic. Neck: Supple, non-tender. Cardiovascular: Regular Rate and Rhythm without murmur, gallop or rub. Respiratory: No accessory muscle use or respiratory distress. Lungs are clear to auscultation, no wheezing, rales or rhonchi Chest Wall: no tenderness LEs: Left LE shortening, externally rotated. GI: Abdomen is soft, non-distended. Normal bowel sounds. No masses appreciated. No tenderness to palpation. No rebound, guarding, or rigidity noted. Neurological: A&O x4. No obvious new focal deficit. Constitutional Vital Signs, click to edit/add: Last Vital Signs Temp 99.4 F 09/11/25 13:08 Pulse 93 H 09/11/25 13:14 Resp 14 09/11/25 13:08 BP 152/76 H 09/11/25 13:08 Pulse Ox 93 L 09/11/25 13:08 O2 Del Method Room Air 09/11/25 13:08 Results Labs Labs: Short CBC 09/11/25 Range/Units 13:38 WBC 9.6 (4.0-11.0) 10^3/uL Hgb 12.9 L (14.0-18.0) g/dL Hct 38.1 L (42.0-54.0) % Plt Count 189 (150-450) 10^3/uL BMP 09/11/25 13:38 Sodium 132 L Potassium 4.4 Chloride 99 Carbon Dioxide 25.4 BUN 14.0 Creatinine 0.87 Glucose 113 H Calcium 8.7 Liver Function 09/11/25 Range/Units 13:38 Total Bilirubin 0.7 (0.2-1.0) mg/dL AST 26 (15-37) U/L ALT 30 (16-63) U/L Alkaline Phosphatase 127 H (46-116) U/L Albumin 3.3 L (3.4-5.0) g/dL Assessment and Plan Assessment and Plan (1) Fall: (2) Closed fracture of left hip: Plan -Afebrile,no leukocytosis, no obvious signs of infectious process. -CT head and cervical spine with no acute pathology -X ray of left hip showed left intertrochanteric fracture -Orthopedic was consulted in ER, plan for OR tomorrow -Pain control as directed as needed -Gentle IV hydration -Hold AP/AC for now -Pt has remote hx of CAD with multiple stents. Revised cardiac risk index of 1.1% perioperative cardiac risk. -Patient is medically stable and optimized to proceed with the proposed orthopedic surgery Home meds reviewed and resumed as appropriate. DVT ppx: SCDS for now Diet: NPO after midnight for surgery Discussed with pt at bedside, all questions answered, he is in agreement with above plan
[2025-09-11 16:55] VITALS: BP 136/81; PULSE 86; TEMP 36.4; O2SAT 92; BMI 28.4
--- OUTSIDE RECORDS SUMMARY | 2025-09-11 16:55 | XMS_ITS | CCD ---
Author Organization [facility] Care Team Providers Care Pole Sander Operator Name Role Phone ANAMARIA Jarvis Emergency Provider [phone] Maren ([facility])DO Charles Primary Care Provider Maren (Clinic) Lucille KLEIN Primary Care Provider Nikos Lao DO Emergency Provider Bennett Navarro MD Admit Provider Bennett Navarro MD Attending Provider [phone] Maren ([facility]) Lucille KLEIN Primary Care Provider Nikos Lao DO Emergency Provider Bennett Navarro MD Admit Provider Lady Parsk DO Other Provider Mariela Solorzano MD Other Provider Omkar Louie MD Other Provider Romy Leon APRN Other Provider Vito Mullins DO Other Provider Oren Lara MD Other Provider Luly SAENZ, Kofi Mackey Attending Provider Omkar Louie MD Admit Provider Omkar Louie MD Attending Provider Dorita Mazariegos Other Provider Unavailable America PhD, Callum Other Provider Brandon Padron MD Other Provider Khurram Eugene DO M Other Provider Bia DO, Bartolome M Other Provider Brian YANES, Petrona M Other Provider Bernabe BOOKKEEPER ASSISTANT-C, Yesenia Ramey Other Provider Martinez MCKEEN-DIRECTOR OF ONLINE EDUCATION-C, Shona Angela Other Provider Kirit RN, Telma Other Provider Unavailable Loraine RN, Soraya Other Provider Unavailable Jere RN, Sandy Other Provider Unavailable Huong RN, Ksenia Other Provider Unavailable Max RN, Nivia Other Provider Unavailable Montserrat SAENZ, An Other Provider Mohamud Brown DO Other Provider Guerrero SAENZ, Boyd Other Provider West Adam DO Other Provider [phone] Esthela SAENZ, Roberto Other Provider [phone] Elba Sheppard MD Other Provider Bailee Carballo DO Other Provider Kev Urbina MD Other Provider Unavailable Jillian Mendez APRN Other Provider Shantelle Newton MD Other Provider Alberto Jacob MD Other Provider Bello SAENZ, George Other Provider Unavailable Carli Small MD Other Provider Bailee Boggs DO Other Provider Olya Garcia MD Other Provider Ronan Michel MD Other Provider Иван BOOKKEEPER ASSISTANT-C, Luli Albert Other Provider Timothy YANES, Rosy Mackey Other Provider Unavailable Bennett Navarro MD Other Provider Merrill SAENZ, Nilesh Other Provider Gilles Gibbs MD Other Provider Hoda SAENZ, Tatyana Other Provider Unavailable Lizandro Corona MD Other Provider Rashmi Almanzar DO Other Provider JedNate mercado DO Other Provider Priscilla Rock APRN Other Provider John Nolan DO Other Provider Luly SAENZ, Kofi Mackey Other Provider Theresa Mireles APRN Other Provider Rin Kellogg APRN Other Provider Mary SAENZ, Geo Other Provider Puma Miller MD Other Provider Norwalk Salomón KLEIN Other Provider Pernell Modi DO Other Provider Bernie SAENZ, Samuel Bryson Other Provider Dayna Garza MD Other Provider Petrona Murphy APRN Other Provider Yaya SAENZ, Jasiel Other Provider Faustino Payton MD Other Provider Omkar Wagner MD Other Provider Kev Pritchett MD Other Provider Alessio Pickering MD Other Provider Radha Juárez APRN Other Provider Jolie Benítez APRN Other Provider iNcolle RN, Esmer Other Provider Unavailable Mary SAENZ, Geo Other Provider Unavailable Petrona Murphy APRN Other Provider Unavailable Karlo Gr DO Attending Provider NON STAFF Primary Care Provider Unavailmaya Pearce MD, Jayme Cabrera Attending Provider JOVANNI ROGERS Attending Unavailable JOVANNI ROGERS Attending Unavailable JOVANNI ROGERS Attending Unavailable Puma Novak DO Primary Care Provider Martinez MCKEEN-DIRECTOR OF ONLINE EDUCATION-C, Shona Angela Attending Provider Jayme Pearce Admitting Kamla Pearce, Jayme Cabrera Attending Puma Esquivel Primary Care Unavailable Omkar Louie Attending Unavailable Omkar Louie Admitting Unavailable Kofi Mauricio Attending Unavailable Bennett Navarro Admitting Unavailab [place] Consulting Unavailable Maren (Clinic), [facility] UnavailMariela Kitchen Consulting Unavailable Omkar Louie Consulting Unavailable Romy Leon Consulting Unavailable Vito Mullins Jr Consulting UnavailOren Muhammad Consulting Unavaila Omkar Vance Attending Unavailable Maren (Clinic), [facility] UnavailOmkar Ly Admitting Unavailable Sciaraagustin Dorita [...] extended release oral tablet (6 sources) beta-Adrenergic Linda Start: 01-28-2025 take 1 tablet by mouth [...] Coronary arteriosclerosis; Translations: [Atherosclerotic heart disease of [place] coronary artery without angina pectoris] 04-17-2025 Chronic [...] 01-30-2025 02-07-2025 Chronic Unclassified (9 sources) A [place] screening has identified you as FRAIL or [...] Four Ways to Beat the Frailty Risk [email or web address]/ whnc-sknbuu-agdc-ways -za-hkyl-xlp-fra ilty-risk 01-28-2025 Past or Other Problems Problem [...] for choosing us for your care. Normal [facility] Urology Office/Clinic Noteon 04-18-2025 Urology Office/Clinic Note Urology Office/Clinic Note Chief Complaint 2 wk f/u w/ PVR HPI Staff 79 yr old male here for 3 wk f/u w/ PVR due to urinary retention. 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 Followed in his older brother's footsteps. [1] [...] Nl renal fx 02/07/25. Pizano removed at [facility] 02/28/25. Went to ER the following afternoon [...] Flomax once daily -F/u 1 yr Ordered: 10426 Measure Post Void residual urine and/or bladder capacity by US- non-imaging Body Mass Index (BMI) documented 3008F Current tobacco non-user 1036F Depression Screening Negative 3352F E&M of Est. Patient Low 20-29 Min 25947 Influenza immunization status assessed 1030F Medication list [...] 1 year [address] [place] [address] Additional Instructions: Patient Education Acute [...] No Known (more content not included)... Normal [facility] Comment on above: Result Comment: Elec tronically Signed By: JOVANNI ROGERS PA-C\.br\Date and Time Signed: 04/18/25 13:25 EDT [facility] ECG *CARDIOLOGY ONLY*on 04-17-2025 [facility]PG ECG *CARDIOLOGY ONLY* [facility] [place] [address] [place] [address] Electrocardiograph Report Signed Patient: Bailee Traore MR#: [id number] : 1945 Acct:[id number] Age/Sex: 79 / M ADM Date: 04/17/25 Loc: EKGCARD Room: Type: [facility] Attending Dr: Jayme Pearce MD Ordering Provider: [...] QT has shortened Confirmed by Jayme Pearce ([id number]) on 04/17/2025 2:56:32 PM Referred By: Electronically Signed By: Jayme Pearce Transcribed By: MUS Signed By Jayme Pearce MD 04/17/25 1456 Normal [facility] Ambulatory Visit Summaryon 0 03-19-2025 [...] for choosing us for your care. Normal [facility] Urology Office/Clinic Noteon 03-19-2025 Urology Office/Clinic Note Urology Office/Clinic Note Chief Complaint urine retention HPI Staff 79 year old male new patient here for urinary retention. 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 Was inpatient 01/26/25- 02/15/25 Pt did have catheter [facility] and then was noticed having blood clots in his urine. Pt was send to [facility] ED the next day due to gross [...] nondistended Neurologic: Grossly normal Assessment/Plan -Admitted to [facility] 01/26/25 d/t multifactorial decline in setting of [...] alone, goal is perhaps independent living at [place] or assisted living somewhere. Currently working with PT/OT to regain strength/mobility. Family member w him today (niece) says mentation is clear/good and at baseline. -[employer], served on a carrier in [employer]. Followed in his older brother's footsteps. 1. [...] Nl renal fx 02/07/25. Pizano removed at [facility] 02/28/25. Went to ER the following afternoon [...] E&M of New Patient Moderate 45-59 Min 90199 Follow-up With When Contact Information KEN CONRAD, JOVANNI Angela, URL [address] [facility] [place] [address] Business (1) Additional Instructions: pending [...] Household t (more content not included)... Normal [facility] Comment on above: Result Comment: Elec tronically Signed By: JOVANNI ROGERS PA-C\Date and Time Signed: 03/19/25 11:56 EDT MR head/brain wo/w conon MR head/brain wo/w con [facility] [place] [address] MRI Report Signed Patient: Bailee Traore MR#: [id number] : 1945 Acct:[id number] Age/Sex: 79 / M ADM Date: 03/15/25 Loc: MR Room: Type: [facility] Attending Dr: Omkar Louie MD Copies to: [...] Christiano Salinas M.D.03/15/2025 9:53 PM Dictation Location: [place] [address] Transcribed By: [facility] 03/15/252152 Dictated By: Christiano Salinas MD 03/15/252140 Signed By: 03/15/252152 Normal [facility] Magnetic resonance imaging r eportOrdered By: Christiano Salinas on 03-15-2025 Study report [facility] Main [place] [address] [place] [address] MRI Report Signed Patient: Bailee Traore MR#: [id number] : 1945 Acct:[id number] Age/Sex: 79 / M ADM Date: 5 Loc: MR Room: Type: [facility] Attending Dr: Omkar Louie MD Copies to: [...] Christiano Salinas M.D.03/15/2025 9:53 PM Dictation Location: [place] [address] Transcribed By: [facility] 03/15/252152 Dictated By: Christiano Salinas MD 03/15/252140 Signed By: 03/15/252152 [place] Work Phone: Urine Cultureon 03-01-2025 Bacteria identified Cx Nom (U) No Growth 2 Days PERFORMED BY: [address] [address] PATHOLOGIST EXTENSION SPECIALIST ANURADHA GRANADOS M.D. Normal [facility] Comment on above: Performed By: #### P T, PTT, CBC, TSH3 wRFLX, BMP, CK, T4F, HS TROP #### [address] Urine cultureOrdered By: [place] Gr on 03-01-2025 Bacteria identified Cx Nom (U) Urine culture [place] Basic Metabolic Panelon 01-26 Anion gap [Moles/Vol] 8.1 mmol/L Normal 6.0-15.0 [facility] Comment on above: Performed By: #### C BC #### [address] Calcium [Mass/Vol] 8.3 mg/dL Low 8.6-10.3 [facility] Comment on above: Performed By: #### C BC #### [address] Chloride [Moles/Vol] 108 mmol/L High 98-107 [facility] Comment on above: Performed By: #### C BC #### [address] CO2 [Moles/Vol] 27.2 mmol/L Normal 21.0-31.0 [facility] Comment on above: Performed By: #### C BC #### [address] Creatinine [Mass/Vol] 0.79 mg/dL Normal 0.70-1.30 [facility] Comment on above: Performed By: #### C BC #### [address] Creatinine Clr Calc Pharmacy 79.49 Normal [facility] Comment on above: Result Comment: PERF ORMED BY: [place] [address] PATHOLOGIST EXTENSION SPECIALIST ANURADHA GRANADOS M.D. Performed By: #### C BC #### [address] GFR/1.73 sq M.predicted MDRD (S/P/Bld) [Vol rate/Area] mL/min/{1.73_m2} Normal [facility] Comment on above: Performed By: #### C BC #### [address] Glucose [Mass/Vol] 86 mg/dL Normal 70-100 [facility] Comment on above: Result Comment: [place] Glucose Reference Range is dependent on time and content of last meal. Glucose of more than 200 mg/dL in a nonstressed, ambulatory subject supports the diagnosis of Diabetes Mellitus. ADA recommended reference range Performed By: #### C BC #### [address] Potassium [Moles/Vol] 4.3 mmol/L Normal 3.5-5.1 [facility] Comment on above: Performed By: #### C BC #### [address] Sodium [Moles/Vol] 139 mmol/L Normal 136-145 [facility] Comment on above: Performed By: #### C BC #### [address] Urea nitrogen [Mass/Vol] 15 mg/dL Normal 7-25 [facility] Comment on above: Performed By: #### C BC #### [address] Basophils Auto (Bld) [#/Vol] Ordered By: Romy Leon on 02-07-2025 Basophils (Bld) [#/Vol] Automated basophil count 0.0-0.2 [place] Basophils/100 WBC Auto (Bld) Ordered By: Romy Leon on 02-07-2025 Basophils/100 WBC (Bld) Automated basophil % . [place] Calcium [Mass/volume] in Ser um or PlasmaOrdered By: Romy Leon on 02-07-2025 Calcium [Mass/Vol] Calcium [Mass/volume ] in Serum or Plasma Low 8.6-10.3 [place] Carbon dioxide, total [Moles /volume] in Serum or PlasmaOrdered By: Romy Leon on 02-07-2025 CO2 [Moles/Vol] Carbon dioxide, tota l [Moles/volume] in Serum or Plasma 21.0-31.0 [place] Chloride [Moles/volume] in S danielle or PlasmaOrdered By: Romy Leon on 02-07-2025 Chloride [Moles/Vol] Chloride [Moles/vol ume] in Serum or Plasma High 98-107 [place] Complete Blood Count Auto Di ffon 02-07-2025 Basophils (Bld) [#/Vol] 0.0 10*3/uL Normal 0.0-0.2 [facility] Comment on above: Result Comment: PERF ORMED BY: [place] [address] PATHOLOGIST EXTENSION SPECIALIST ANURADHA GRANADOS M.D. Performed By: #### C BC #### [address] Basophils/100 WBC (Bld) 0.4 % Normal . [facility] Comment on above: Performed By: #### C BC #### [address] Eosinophils (Bld) [#/Vol] 0.3 10*3/uL Normal 0.0-0.45 [facility] Comment on above: Performed By: #### C BC #### [address] Eosinophils/100 WBC (Bld) 5.1 % Normal . [facility] Comment on above: Performed By: #### C BC #### [address] Erythrocyte distribution width (RBC) [Ratio] 13.9 % Normal 12.0-14.8 [facility] Comment on above: Performed By: #### C BC #### [address] Hematocrit (Bld) [Volume fraction] 37.3 % Low 38.8-50.0 [facility] Comment on above: Performed By: #### C BC #### [address] Hemoglobin (Bld) [Mass/Vol] 12.7 g/dL Low 13.0-17.0 [facility] Comment on above: Performed By: #### C BC #### [address] Lymphocytes (Bld) [#/Vol] 2.8 10*3/uL Normal 1.00-4.8 [facility] Comment on above: Performed By: #### C BC #### [address] Lymphocytes/100 WBC (Bld) 41.8 % Normal . [facility] Comment on above: Performed By: #### C BC #### [address] MCH (RBC) [Entitic mass] 29.2 pg Normal 27.5-35.2 [facility] Comment on above: Performed By: #### C BC #### [address] MCV (RBC) [Entitic vol] 86.0 fL Normal 83.5-101 [facility] Comment on above: Performed By: #### C BC #### [address] Mean Corpuscular HGB Conc 33.9 g/dL Normal 32.5-35.6 [facility] Comment on above: Performed By: #### C BC #### [address] Monocytes (Bld) [#/Vol] 0.7 10*3/uL Normal 0.0-0.8 [facility] Comment on above: Performed By: #### C BC #### [place] [address] [place] Monocytes/100 WBC (Bld) 10.8 % Normal . [facility] Comment on above: Performed By: #### C BC #### [address] Neutrophils (Bld) [#/Vol] 2.8 10*3/uL Normal 1.8-7.7 [facility] Comment on above: Performed By: #### C BC #### [address] Neutrophils/100 WBC (Bld) 41.9 % Normal . [facility] Comment on above: Performed By: #### C BC #### [address] NRBC% 0.2 /100{WBC} Normal 0-0.5 [facility] Comment on above: Performed By: #### C BC #### [address] Platelet mean volume (Bld) [Entitic vol] 9.0 fL Normal 6.6-10.1 [facility] Comment on above: Performed By: #### C BC #### [address] Platelets (Bld) [#/Vol] 164 10*3/uL Normal 150-450 [facility] Comment on above: Performed By: #### C BC #### [address] RBC (Bld) [#/Vol] 4.33 10*6/uL Normal 3.90-5.60 [facility] Comment on above: Performed By: #### C BC #### [address] WBC (Bld) [#/Vol] 6.7 10*3/uL Normal 4.1-10.5 [facility] Comment on above: Performed By: #### C BC #### [address] Creatinine [Mass/volume] in Serum or PlasmaOrdered By: Romy Leon on 02-07-2025 Creatinine [Mass/Vol] Creatinine [Mass/v olume] in Serum or Plasma 0.70-1.30 [place] Eosinophils Auto (Bld) [#/Vo l]Ordered By: Romy Leon on 02-07-2025 Eosinophils (Bld) [#/Vol] Automated eosi nophil count 0.0-0.45 [place] Eosinophils/100 WBC Auto (Bl d)Ordered By: Romy Leon on 02-07-2025 Eosinophils/100 WBC (Bld) Automated eosinophil % . [place] Erythrocyte distribution wid th Auto (RBC) [Ratio]Ordered By: Romy Leon on 02-07-2025 Erythrocyte distribution width (RBC) [Ratio] Erythrocyte distribution width [Ratio] by Automated count 12.0-14.8 [place] Glucose [Mass/volume] in Ser um or PlasmaOrdered By: Romy Leon on 02-07-2025 Glucose [Mass/Vol] Glucose [Mass/volume ] in Serum or Plasma 70-100 [place] Comment on above: ADA recommended refe rence rangeRandom Glucose Reference Range is dependent on time and content of last meal. Glucose of more than 200 mg/dL in a nonstressed, ambulatory subject supports the diagnosis of Diabetes Mellitus. Hematocrit Auto (Bld) [Volum e fraction]Ordered By: Romy Leon on 02-07-2025 Hematocrit (Bld) [Volume fraction] Hematocrit [Volume Fraction] of Blood by Automated count Low 38.8-50.0 [place] Hemoglobin [Mass/volume] in BloodOrdered By: Romy Leon on 02-07-2025 Hemoglobin (Bld) [Mass/Vol] Hemoglobin [Mass/volume] in Blood Low 13.0-17.0 [place] Leukocytes [#/volume] correc dexter for nucleated erythrocytes in Blood by Automated counOrdered By: Romy Leon on 02-07-2025 WBC corrected for nucl RBC Auto (Bld) [#/Vol] Leukocytes [#/volume] corrected for nucleated erythrocytes in Blood by Automated coun 4.1-10.5 [place] Lymphocytes Auto (Bld) [#/Vo l]Ordered By: Romy Leon on 02-07-2025 Lymphocytes (Bld) [#/Vol] Lymphocytes [# /volume] in Blood by Automated count 1.00-4.8 [place] Lymphocytes/100 WBC Auto (Bl d)Ordered By: Romy Leon on 02-07-2025 Lymphocytes/100 WBC (Bld) Lymphocytes/10 0 leukocytes in Blood by Automated count . [place] MCH Auto (RBC) [Entitic mass ]Ordered By: Romy Leon on 02-07-2025 MCH (RBC) [Entitic mass] MCH [Entitic ma ss] by Automated count 27.5-35.2 [place] MCHC Auto (RBC) [Mass/Vol]Or dered By: Romy Leon on 02-07-2025 MCHC (RBC) [Mass/Vol] MCHC [Mass/volume] by Automated count 32.5-35.6 [place] MCV Auto (RBC) [Entitic vol] Ordered By: Romy Leon on 02-07-2025 MCV (RBC) [Entitic vol] MCV [Entitic vol ume] by Automated count 83.5-101 [place] Monocytes Auto (Bld) [#/Vol] Ordered By: Romy Leon on 02-07-2025 Monocytes (Bld) [#/Vol] Automated blood monocyte count 0.0-0.8 [place] Monocytes/100 WBC Auto (Bld) Ordered By: Romy Leon on 02-07-2025 Monocytes/100 WBC (Bld) Automated monocyte % . [place] Neutrophils Auto (Bld) [#/Vo l]Ordered By: Romy Leon on 02-07-2025 Neutrophils (Bld) [#/Vol] Neutrophils [# /volume] in Blood by Automated count 1.8-7.7 [place] Neutrophils/100 WBC Auto (Bl d)Ordered By: Romy Leon on 02-07-2025 Neutrophils/100 WBC (Bld) Automated neutrophil % . [place] No Panel InformationOrdered By: Romy Leon on 02-07-2025 Estimated GFR (CKD-EPI) > 60.0 mL/Min [place] [facility] Creatinine Clearance (Chem 79.49 [place] Nucleated erythrocytes [Pres ence] in Blood by Automated countOrdered By: Romy Leon on 02-07-2025 Nucleated RBC Auto Ql (Bld) Nucleated erythrocytes [Presence] in Blood by Automated count 0-0.5 [place] Platelet mean volume Auto (B ld) [Entitic vol]Ordered By: Romy Leon on 02-07-2025 Platelet mean volume (Bld) [Entitic vol] Platelet mean volume [Entitic volume] in Blood by Automated count 6.6-10.1 [place] Platelets Auto (Bld) [#/Vol] Ordered By: Romy Leon on 02-07-2025 Platelets (Bld) [#/Vol] Platelets [#/vol ume] in Blood by Automated count 150-450 [place] Potassium [Moles/volume] in Serum or PlasmaOrdered By: Romy Leon on 02-07-2025 Potassium [Moles/Vol] Potassium [Moles/v olume] in Serum or Plasma 3.5-5.1 [place] RBC Auto (Bld) [#/Vol]Ordere d By: Romy Leon on 02-07-2025 RBC (Bld) [#/Vol] Erythrocytes [#/volu me] in Blood by Automated count 3.90-5.60 [place] Serum or plasma anion gap de terminationOrdered By: Romy Leon on 02-07-2025 Anion gap [Moles/Vol] Serum or plasma an ion gap determination 6.0-15.0 [place] Sodium [Moles/volume] in Ser um or PlasmaOrdered By: Romy Leon on 02-07-2025 Sodium [Moles/Vol] Sodium [Moles/volume ] in Serum or Plasma 136-145 [place] Urea nitrogen [Mass/volume] in Serum or PlasmaOrdered By: Romy Leon on 02-07-2025 Urea nitrogen [Mass/Vol] Urea nitrogen [Mass/volume] in Serum or Plasma 7-25 [place] WBC Auto (Bld) [#/Vol]Ordere d By: Romy Leon on 02-07-2025 WBC (Bld) [#/Vol] Leukocytes [#/volume ] in Blood by Automated count 4.1-10.5 [place] Pathology study report docum entOrdered By: Rene Cavazos on 02-05-2025 Pathology study [place] Other Phone: Aerobic Cultureon 02-03-2025 Aerobic Culture Comment Tube 2 No Growth 2 Days Comment Tube 2 No Anaerobes Isolated 3 Days Comment Tube 2 Gram Stain Result No White Blood Cells Seen No Bacteria Seen PERFORMED BY: [place] [address] PATHOLOGIST EXTENSION SPECIALIST ANURADHA GRANADOS M.D. Normal [facility] Comment on above: Performed By: #### P T, PTT, CBC, TSH3 wRFLX, BMP, CK, T4F, HS TROP #### [facility] [address] [place] [address] Aerobic cultureOrdered By: Ymoi Amezquita on 02-03-2025 Bacteria identified Aer cx Nom (Unsp spec) Aerobic culture [place] Anaerobic cultureOrdered By: Bartolome Amezquita on 02-03-2025 Bacteria identified Anaer cx Nom (Unsp spec) Anaerobic culture [place] Basophil count CSFOrdered By : Bartolome Amezquita on 02-03-2025 CSF Basophils 0 [place] Comment on above: The reference interv al and other method performance specifications have not been established for this body fluid. The test result must be integrated into the clinical context for interpretation. Cell Count Differential,CSFo n 02-03-2025 Appearance, CSF Clear Normal Clear [facility] Comment on above: Order Comment: Comme nt Tube 1 Performed By: #### P T, PTT, CBC, TSH3 wRFLX, BMP, CK, T4F, HS TROP #### [facility] [address] [place] [address] Order Comment: Comme nt Tube 4 Color, CSF Colorless Normal Colorless [facility] Comment on above: Order Comment: Comme nt Tube 1 Performed By: #### P T, PTT, CBC, TSH3 wRFLX, BMP, CK, T4F, HS TROP #### [facility] [address] [place] [address] Order Comment: Comme nt Tube 4 CSF Supernatant Color Colorless Normal Colorless [facility] Comment on above: Order Comment: Comme nt Tube 1 Performed By: #### P T, PTT, CBC, TSH3 wRFLX, BMP, CK, T4F, HS TROP #### [facility] [address] [place] [address] Order Comment: Comme nt Tube 4 CSF Volume, Total 11.0 mL Normal [facility] Comment on above: Order Comment: Comme nt Tube 1 Performed By: #### P T, PTT, CBC, TSH3 wRFLX, BMP, CK, T4F, HS TROP #### [address] Order Comment: Comme nt Tube 4 Eosinophil, CSF 0 Normal [facility] Comment on above: Order Comment: Comme nt Tube 1 Result Comment: The reference interval and other method performance specifications have not been established for this body fluid. The test result must be integrated into the clinical context for interpretation. Performed By: #### P T, PTT, CBC, TSH3 wRFLX, BMP, CK, T4F, HS TROP #### [address] Order Comment: Comme nt Tube 4 Lymphocytes, CSF 3 Normal [facility] Comment on above: Order Comment: Comme nt Tube 1 Result Comment: The reference interval and other method performance specifications have not been established for this body fluid. The test result must be integrated into the clinical context for interpretation. Performed By: #### P T, PTT, CBC, TSH3 wRFLX, BMP, CK, T4F, HS TROP #### [facility] [address] [place] [address] Monocytes, CSF 0 Normal [facility] Comment on above: Order Comment: Comme nt Tube 1 Result Comment: The reference interval and other method performance specifications have not been established for this body fluid. The test result must be integrated into the clinical context for interpretation. Performed By: #### P T, PTT, CBC, TSH3 wRFLX, BMP, CK, T4F, HS TROP #### [facility] [address] [place] [address] Order Comment: Comme nt Tube 4 Neutrophils, CSF 0 Normal [facility] Comment on above: Order Comment: Comme nt Tube 1 Result Comment: The reference interval and other method performance specifications have not been established for this body fluid. The test result must be integrated into the clinical context for interpretation. Performed By: #### P T, PTT, CBC, TSH3 wRFLX, BMP, CK, T4F, HS TROP #### [address] Order Comment: Comme nt Tube 4 RBC, CSF 3 /uL Normal [facility] Comment on above: Order Comment: Comme nt Tube 1 Result Comment: The reference interval and other method performance specifications have not been established for this body fluid. The test result must be integrated into the clinical context for interpretation. Performed By: #### P T, PTT, CBC, TSH3 wRFLX, BMP, CK, T4F, HS TROP #### [address] TNC, CSF 1 /uL Normal 0-5 [facility] Comment on above: Order Comment: Comme nt Tube 1 Performed By: #### P T, PTT, CBC, TSH3 wRFLX, BMP, CK, T4F, HS TROP #### [address] Order Comment: Comme nt Tube 4 Total Count, CSF 3 Normal [facility] Comment on above: Order Comment: Comme nt Tube 1 Performed By: #### P T, PTT, CBC, TSH3 wRFLX, BMP, CK, T4F, HS TROP #### [address] Order Comment: Comme nt Tube 4 Tube Number Tested, CSF Tube Number: 1 Normal [facility] Comment on above: Order Comment: Comme nt Tube 1 Result Comment: PERF ORMED BY: [place] [address] PATHOLOGIST EXTENSION SPECIALIST ANURADHA GRANADOS M.D. Performed By: #### P T, PTT, CBC, TSH3 wRFLX, BMP, CK, T4F, HS TROP #### [address] Cell Count Differential,CSF #2on 02-03-2025 Basophils, CSF 0 Normal [facility] Comment on above: Order Comment: Comme nt Tube 4 Result Comment: The reference interval and other method performance specifications have not been established for this body fluid. The test result must be integrated into the clinical context for interpretation. Performed By: #### P T, PTT, CBC, TSH3 wRFLX, BMP, CK, T4F, HS TROP #### [address] Lymphocytes, CSF 2 Normal [facility] Comment on above: Order Comment: Comme nt Tube 4 Result Comment: The reference interval and other method performance specifications have not been established for this body fluid. The test result must be integrated into the clinical context for interpretation. Performed By: #### P T, PTT, CBC, TSH3 wRFLX, BMP, CK, T4F, HS TROP #### [address] Macrophages, CSF 1 Normal [facility] Comment on above: Order Comment: Comme nt Tube 4 Result Comment: The reference interval and other method performance specifications have not been established for this body fluid. The test result must be integrated into the clinical context for interpretation. Performed By: #### P T, PTT, CBC, TSH3 wRFLX, BMP, CK, T4F, HS TROP #### [address] RBC, CSF 0 /uL Normal [facility] Comment on above: Order Comment: Comme nt Tube 4 Result Comment: The reference interval and other method performance specifications have not been established for this body fluid. The test result must be integrated into the clinical context for interpretation. Performed By: #### P T, PTT, CBC, TSH3 wRFLX, BMP, CK, T4F, HS TROP #### [address] Tube Number Tested, CSF Tube Number: 4 Normal [facility] Comment on above: Order Comment: Comme nt Tube 4 Result Comment: PERF ORMED BY: [place] [address] PATHOLOGIST EXTENSION SPECIALIST ANURADHA GRANADOS M.D. Performed By: #### P T, PTT, CBC, TSH3 wRFLX, BMP, CK, T4F, HS TROP #### [address] Cerebrospinal fluid color id entificationOrdered By: Bartolome Amezquita on 02-03-2025 Color (CSF) Color CSF Colorless [place] Cerebrospinal fluid post-izabella trifugation appearance determinationOrdered By: Bartolome Amezquita on 02-03-2025 Appearance (Spun CSF) Cerebrospinal flui d post-centrifugation appearance determination Colorless [place] Cerebrospinal fluid sample t ube volume measurementOrdered By: Bartolome Amezquita on 02-03-2025 Specimen volume (CSF) Cerebrospinal flui d sample tube volume measurement [place] Complete Blood Count Auto Di ffon 02-03-2025 Basophils (Bld) [#/Vol] 0.0 10*3/uL Normal 0.0-0.2 [facility] Comment on above: Result Comment: PERF ORMED BY: [place] [address] PATHOLOGIST EXTENSION SPECIALIST ANURADHA GRANADOS M.D. Performed By: #### C BC #### [address] Basophils/100 WBC (Bld) 0.5 % Normal . [facility] Comment on above: Performed By: #### C BC #### [place] [address] [place] Eosinophils (Bld) [#/Vol] 0.3 10*3/uL Normal 0.0-0.45 [facility] Comment on above: Performed By: #### C BC #### [address] Eosinophils/100 WBC (Bld) 5.7 % Normal . [facility] Comment on above: Performed By: #### C BC #### [address] Erythrocyte distribution width (RBC) [Ratio] 14.2 % Normal 12.0-14.8 [facility] Comment on above: Performed By: #### C BC #### [address] Hematocrit (Bld) [Volume fraction] 37.5 % Low 38.8-50.0 [facility] Comment on above: Performed By: #### C BC #### [address] Hemoglobin (Bld) [Mass/Vol] 12.8 g/dL Low 13.0-17.0 [facility] Comment on above: Performed By: #### C BC #### [address] Lymphocytes (Bld) [#/Vol] 1.8 10*3/uL Normal 1.00-4.8 [facility] Comment on above: Performed By: #### C BC #### [address] Lymphocytes/100 WBC (Bld) 31.3 % Normal . [facility] Comment on above: Performed By: #### C BC #### [address] MCH (RBC) [Entitic mass] 29.4 pg Normal 27.5-35.2 [facility] Comment on above: Performed By: #### C BC #### [address] MCV (RBC) [Entitic vol] 85.8 fL Normal 83.5-101 [facility] Comment on above: Performed By: #### C BC #### [address] Mean Corpuscular HGB Conc 34.3 g/dL Normal 32.5-35.6 [facility] Comment on above: Performed By: #### C BC #### [address] Monocytes (Bld) [#/Vol] 0.5 10*3/uL Normal 0.0-0.8 [facility] Comment on above: Performed By: #### C BC #### [address] Monocytes/100 WBC (Bld) 9.4 % Normal . [facility] Comment on above: Performed By: #### C BC #### [address] Neutrophils (Bld) [#/Vol] 3.1 10*3/uL Normal 1.8-7.7 [facility] Comment on above: Performed By: #### C BC #### [address] Neutrophils/100 WBC (Bld) 53.1 % Normal . [facility] Comment on above: Performed By: #### C BC #### [address] NRBC% 0.2 /100{WBC} Normal 0-0.5 [facility] Comment on above: Performed By: #### C BC #### [address] Platelet mean volume (Bld) [Entitic vol] 8.4 fL Normal 6.6-10.1 [facility] Comment on above: Performed By: #### C BC #### [address] Platelets (Bld) [#/Vol] 164 10*3/uL Normal 150-450 [facility] Comment on above: Performed By: #### C BC #### [address] RBC (Bld) [#/Vol] 4.37 10*6/uL Normal 3.90-5.60 [facility] Comment on above: Performed By: #### C BC #### [address] WBC (Bld) [#/Vol] 5.8 10*3/uL Normal 4.1-10.5 [facility] Comment on above: Performed By: #### C BC #### [address] Cryptococcus Ag CSFon 2024 CAP Mandated Culture Reflex Not Indicated Normal . [facility] Comment on above: Order Comment: Comme nt Tube 4 Result Comment: Perf ormed at: [facility] - [facility] [address] [id number] Pc Installation Engineer: Alfonso Pickens MD, Phone: [phone] PERFORMED BY: [address] [address] PATHOLOGIST EXTENSION SPECIALIST ANURADHA GRANADOS M.D. Performed By: #### P T, PTT, CBC, TSH3 wRFLX, BMP, CK, T4F, HS TROP #### [facility] [address] [place] [address] Cryptococcus Antigen CSF Negative Normal Negative [facility] Comment on above: Order Comment: Comme nt Tube 4 Performed By: #### P T, PTT, CBC, TSH3 wRFLX, BMP, CK, T4F, HS TROP #### [facility] [address] [place] [address] Determination of appearance of cerebrospinal fluidOrdered By: Bartolome Amezquita on 02-03-2025 Appearance (CSF) Cerebrospinal fluid appearance description Clear [place] Eosinophil count CSFOrdered By: Bartolome Amezquita on 02-03-2025 CSF Eosinophils 0 [place] Comment on above: The reference interv al [...] Varicella zoster virus Not detected PERFORMED BY: [place] [address] PATHOLOGIST EXTENSION SPECIALIST ANURADHA GRANADOS M.D. Normal [facility] Comment on above: Performed By: #### P T, PTT, CBC, TSH3 wRFLX, BMP, CK, T4F, HS TROP #### [address] Fungal smearOrdered By: Bartolome Amezquita on 02-03-2025 Fungus identified Fungus stain Nom (Unsp spec) Fungal smear [place] Glucose [Mass/volume] in Cer ebral spinal fluidOrdered By: Bartolome Amezquita on 02-03-2025 Glucose (CSF) [Mass/Vol] Glucose [Mass/v olume] in Cerebral spinal fluid 40-70 [place] Glucose, CSF #2on 02-03-2025 Glucose, CSF #2 61 mg/dL Normal 40-70 [facility] Comment on above: Order Comment: Comme nt Tube 4 Performed By: #### C BC #### [place] [address] [place] Glucose, Spinal Fluidon Glucose, Spinal Fluid 62 mg/dL Normal 40-70 [facility] Comment on above: Order Comment: Comme nt Tube 1 Performed By: #### C BC #### [address] Gram Stainon 02-03-2025 Microscopic observation Gram stain Nom (Unsp spec) Comment Tube 2 Gram Stain Result No White Blood Cells Seen No Bacteria Seen PERFORMED BY: [place] [address] PATHOLOGIST EXTENSION SPECIALIST ANURADHA GRANADOS M.D. Normal [facility] Comment on above: Performed By: #### C BC #### [address] Gram stain microscopyOrdered By: Bartolome Amezquita on 02-03-2025 Microscopic observation Gram stain Nom (Unsp spec) Gram stain microscopy [place] INR in Platelet poor plasma by Coagulation assayOrdered By: Bartolome Amezquita on 02-03-2025 INR Coag (PPP) [Relative time] INR in Platelet poor plasma by Coagulation assay [place] Comment on above: INR Therapeutic Rang e [...] [id number] Received: 02/04/25 Status: LOGAN Garcia Num: [id number] Spec Type: Cytology Subm Dr: Bartolome Amezquita DO Tissues: A CSF (CSF) Procedures: Cyto Prepstain, DIFF QWIK, PAPSTN Age/ Patient Sex Location Account Attending Physician Bailee Traore/Denia 5T [id number] Omkar Louie MD SPEC NUM: [id number] RECD: 02/04/25 STATUS: LOGAN GARCIA NUM: [id number] ALEXANDRO: 02/03/25-[address] [facility] DR: Bartolome Amezquita DO ENTERED: 02/04/25 [facility] DR: SPEC TYPE: Cytology DEPT: [facility] ENTERED BY: [id number] RECV BY: [id number] ORDERED: Cyto Prepstain, DIFF QWIK, PAPSTN ORDERED: [...] [id number] Received: 02/04/25 Status: LOGAN Garcia Num: [id number] Spec Type: Cytology Subm Dr: Bartolome Amezquita DO Tissues: A CSF (CSF) Procedures: Cyto Prepstain, DIFF QWIK, PAPSTN Patient: TraoreBailee [id number] (Continued) Specimen: [id number] Received: 02/04/25 (Continued) Signed (signature on file) Rene Cavazos MD 02/05/25 0944 Specimen: [id number] Received: 02/04/25 Status: LOGAN Jessica Num: [id number] Spec Type: Cytology Subm Dr: Bartolome Amezquita DO Tissues: A CSF (CSF) Procedures: Cyto Prepstain, DIFF QWIK, PAPSTN Patient: Bailee Traore [id number] (Continued) Specimen: [id number] Received: 02/04/25 (Continued) CPT Codes 29235 Specimen: [id number] Received: 02/04/25 Status: LOGAN Barriosjay Num: [id number] Spec Type: Cytology Subm Dr: Bartolome Amezquita DO Tissues: A CSF (CSF) Procedures: Cyto Prepstain, DIFF QWIK, PAPSTN Patient: Bailee Traore [id number] (Continued) Signed (signature on file) Rene Cavazos MD 02/05/25 0944 Normal [facility] Lymphocyte count CSFOrdered By: Bartolome Amezquita on 02-03-2025 CSF Lymphocytes 2 [place] Comment on above: The reference interv al and other method performance specifications have not been established for this body fluid. The test result must be integrated into the clinical context for interpretation. Macrophage count CSFOrdered By: Bartolome Amezquita on 02-03-2025 CSF Macrophages 1 [place] Comment on above: The reference interv al and other method performance specifications have not been established for this body fluid. The test result must be integrated into the clinical context for interpretation. Manual cerebrospinal fluid e rythrocytes count (number/volume)Ordered By: Bartolome Amezquita on 02-03-2025 RBC Manual cnt (CSF) [#/Vol] Manual cerebrospinal fluid erythrocytes count (number/volume) [place] Comment on above: The reference interv al [...] - Cerebral spinal fluid by BILLY wi [place] Monocyte count CSFOrdered By : Bartolome Amezquita on 02-03-2025 CSF Monocytes 0 [place] Comment on above: The reference interv al and other method performance specifications have not been established for this body fluid. The test result must be integrated into the clinical context for interpretation. Neutrophil count CSFOrdered By: Bartolome Amezquita on 02-03-2025 CSF Neutrophils 0 [place] Comment on above: The reference interv al and other method performance specifications have not been established for this body fluid. The test result must be integrated into the clinical context for interpretation. No Panel InformationOrdered By: Bartolome Amezquita on 02-03-2025 CSF Cryptococcus Antigen Negative Negative [place] CSF Total Cells Counted 3 F [facility] CSF Tube Number Tube number: 4 [facility] Nucleated cells [#/volume] i n Cerebral spinal fluid by Manual countOrdered By: Bartolome Amezquita on 02-03-2025 Nucleated cells Manual cnt (CSF) [#/Vol] Nucleated cells [#/volume] in Cerebral spinal fluid by Manual count 0-5 [place] Partial Thromboplastin Timeo n 02-03-2025 aPTT Coag (Bld) [Time] 31.4 s Normal 25.1-36.5 [facility] Comment on above: Result Comment: A he matocrit value greater than 55% may lead to inaccurate results in coagulation testing. Patients having hematocrit values >55% require a special collection tube for coagulation studies. Please contact the laboratory at [phone] for redraw instructions. PERFORMED BY: [place] [address] PATHOLOGIST EXTENSION SPECIALIST ANURADHA GRANADOS M.D. Performed By: #### P TT, PT #### [place] [id number] [facility] Protein [Mass/volume] in Cer ebral spinal fluidOrdered By: Bartolome Amezquita on 02-03-2025 Protein (CSF) [Mass/Vol] Protein [Mass/v olume] in Cerebral spinal fluid High 15-45 [place] Prothrombin Time INRon 02-03 INR Coag (PPP) [Relative time] 1.2 {INR} Normal [facility] Comment on above: Result Comment: [...] Performed By: #### P TT, PT #### [place] [id number] [facility] PT Coag (PPP) [Time] 13.1 s High 9.0-12.9 [facility] Comment on above: Result Comment: A matocrit value greater than 55% may lead to inaccurate results in coagulation testing. Patients having hematocrit values >55% require a special collection tube for coagulation studies. Please contact the laboratory at [phone] for redraw instructions. Performed By: #### P TT, PT #### [address] [address] [facility] Prothrombin time (PT)Ordered By: Bartolome Amezquita on 02-03-2025 PT Coag (PPP) [Time] Prothrombin time (PT) High 9.0- 12.9 [place] Comment on above: A hematocrit value g reater than 55% may lead to inaccurate results in coagulation testing. Patients having hematocrit values >55% require a special collection tube for coagulation studies. Please contact the laboratory at [phone] for redraw instructions. Total Protein, CSF #2on Total Protein, CSF #2 101 mg/dL High [facility] Comment on above: Order Comment: Comme nt Tube 4 Result Comment: PERF ORMED BY: [place] [address] PATHOLOGIST EXTENSION SPECIALIST ANURADHA GRANADOS M.D. Performed By: #### C BC #### [address] Total Protein, Spinal Fluido n 02-03-2025 Total Protein, Spinal Fluid 100 mg/dL High [facility] Comment on above: Order Comment: Comme nt Tube 1 Result Comment: PERF ORMED BY: [place] [address] PATHOLOGIST EXTENSION SPECIALIST ANURADHA GRANADOS M.D. Performed By: #### C BC #### [address] aPTT in Platelet poor plasma by Coagulation assayOrdered By: Bartolome Amezquita on 02-03-2025 aPTT Coag (PPP) [Time] Activated partial thromboplastin time (aPTT) in platelet poor plasma by coagulation a 25.1-36.5 [place] Comment on above: A hematocrit value g reater than 55% may lead to inaccurate results in coagulation testing. Patients having hematocrit values >55% require a special collection tube for coagulation studies. Please contact the laboratory at [phone] for redraw instructions. Basic Metabolic Panelon Anion gap [Moles/Vol] 8.2 mmol/L Normal 6.0-15.0 [facility] Comment on above: Performed By: #### P T, PTT, CBC, TSH3 wRFLX, BMP, CK, T4F, HS TROP #### [address] Calcium [Mass/Vol] 8.5 mg/dL Low 8.6-10.3 [facility] Comment on above: Performed By: #### P T, PTT, CBC, TSH3 wRFLX, BMP, CK, T4F, HS TROP #### [address] Chloride [Moles/Vol] 105 mmol/L Normal 98-107 [facility] Comment on above: Performed By: #### P T, PTT, CBC, TSH3 wRFLX, BMP, CK, T4F, HS TROP #### [address] CO2 [Moles/Vol] 28.5 mmol/L Normal 21.0-31.0 [facility] Comment on above: Performed By: #### P T, PTT, CBC, TSH3 wRFLX, BMP, CK, T4F, HS TROP #### [address] Creatinine [Mass/Vol] 0.72 mg/dL Normal 0.70-1.30 [facility] Comment on above: Performed By: #### P T, PTT, CBC, TSH3 wRFLX, BMP, CK, T4F, HS TROP #### [address] Creatinine Clr Calc Pharmacy 79.49 Normal [facility] Comment on above: Result Comment: PERF ORMED BY: [place] [address] PATHOLOGIST EXTENSION SPECIALIST ANURADHA GRANADOS M.D. Performed By: #### P T, PTT, CBC, TSH3 wRFLX, BMP, CK, T4F, HS TROP #### [address] GFR/1.73 sq M.predicted MDRD (S/P/Bld) [Vol rate/Area] mL/min/{1.73_m2} Normal [facility] Comment on above: Performed By: #### P T, PTT, CBC, TSH3 wRFLX, BMP, CK, T4F, HS TROP #### [facility] [address] Glucose [Mass/Vol] 84 mg/dL Normal 70-100 [facility] Comment on above: Result Comment: [place] Glucose Reference Range is dependent on time and content of last meal. Glucose of more than 200 mg/dL in a nonstressed, ambulatory subject supports the diagnosis of Diabetes Mellitus. ADA recommended reference range Performed By: #### P T, PTT, CBC, TSH3 wRFLX, BMP, CK, T4F, HS TROP #### [address] Potassium [Moles/Vol] 3.7 mmol/L Normal 3.5-5.1 [facility] Comment on above: Performed By: #### P T, PTT, CBC, TSH3 wRFLX, BMP, CK, T4F, HS TROP #### [address] Sodium [Moles/Vol] 138 mmol/L Normal 136-145 [facility] Comment on above: Performed By: #### P T, PTT, CBC, TSH3 wRFLX, BMP, CK, T4F, HS TROP #### [place] [address] [place] Urea nitrogen [Mass/Vol] 15 mg/dL Normal 7-25 [facility] Comment on above: Performed By: #### P T, PTT, CBC, TSH3 wRFLX, BMP, CK, T4F, HS TROP #### [place] [address] [place] Magnesiumon 02-02-2025 Magnesium [Mass/Vol] 1.7 mg/dL Low 1.9-2.7 [facility] Comment on above: Result Comment: PERF ORMED BY: [place] [address] PATHOLOGIST EXTENSION SPECIALIST ANURADHA GRANADOS M.D. Performed By: #### P T, PTT, CBC, TSH3 wRFLX, BMP, CK, T4F, HS TROP #### [address] Magnesium [Mass/volume] in [place] or PlasmaOrdered By: Romy Leon on 02-02-2025 Magnesium [Mass/Vol] Magnesium [Mass/vol ume] in Serum or Plasma Low 1.9-2.7 [place] Basic Metabolic Panelon Anion gap [Moles/Vol] 11.5 mmol/L Normal 6.0-15.0 [facility] Comment on above: Performed By: #### P TT, PT #### [address] Calcium [Mass/Vol] 9.2 mg/dL Normal 8.6-10.3 [facility] Comment on above: Performed By: #### P TT, PT #### [address] Chloride [Moles/Vol] 100 mmol/L Normal 98-107 [facility] Comment on above: Performed By: #### P TT, PT #### [address] CO2 [Moles/Vol] 28.7 mmol/L Normal 21.0-31.0 [facility] Comment on above: Performed By: #### P TT, PT #### [address] Creatinine [Mass/Vol] 0.82 mg/dL Normal 0.70-1.30 [facility] Comment on above: Performed By: #### P TT, PT #### [place] [address] [place] Creatinine Clr Calc Pharmacy 77.55 Normal [facility] Comment on above: Result Comment: PERF ORMED BY: [place] [address] PATHOLOGIST EXTENSION SPECIALIST ANURADHA GRANADOS M.D. Performed By: #### P TT, PT #### [place] [address] [place] GFR/1.73 sq M.predicted MDRD (S/P/Bld) [Vol rate/Area] mL/min/{1.73_m2} Normal [facility] Comment on above: Performed By: #### P TT, PT #### [place] [address] [place] Glucose [Mass/Vol] 132 mg/dL High 70-100 [facility] Comment on above: Result Comment: [facility] Glucose Reference Range is dependent on time and content of last meal. Glucose of more than 200 mg/dL in a nonstressed, ambulatory subject supports the diagnosis of Diabetes Mellitus. ADA recommended reference range Performed By: #### P TT, PT #### [address] Potassium [Moles/Vol] 3.2 mmol/L Low 3.5-5.1 [facility] Comment on above: Performed By: #### P TT, PT #### [place] [address] [place] Sodium [Moles/Vol] 137 mmol/L Normal 136-145 [facility] Comment on above: Performed By: #### P TT, PT #### [address] [address] Urea nitrogen [Mass/Vol] 18 mg/dL Normal 7-25 [facility] Comment on above: Performed By: #### P TT, PT #### [address] Potassiumon 02-01-2025 Potassium [Moles/Vol] 3.8 mmol/L Normal 3.5-5.1 [facility] Comment on above: Result Comment: PERF ORMED BY: [place] [address] PATHOLOGIST EXTENSION SPECIALIST ANURADHA GRANADOS M.D. Performed By: #### P T, PTT, CBC, TSH3 wRFLX, BMP, CK, T4F, HS TROP #### [facility] [address] [place] [address] [facility] Alanine aminotransferase [En zymatic activity/volume] in Serum or PlasmaOrdered By: Oren Lara on 01-31-2025 ALT [Catalytic activity/Vol] Alanine aminotransferase [Enzymatic activity/volume] in Serum or Plasma 7-52 [place] Albumin [Mass/volume] in Ser um or Plasma by Bromocresol green (BCG) dye binding methoOrdered By: Oren Lara on 01-31-2025 Albumin BCG dye [Mass/Vol] Albumin [Mass/volume] in Serum or Plasma by Bromocresol green (BCG) dye binding metho Low 3.5-5.7 [place] Alkaline phosphatase [Enzyma tic activity/volume] in Serum or PlasmaOrdered By: Oren Lara on 01-31-2025 ALP [Catalytic activity/Vol] Alkaline phosphatase [Enzymatic activity/volume] in Serum or Plasma 34-104 [place] Aspartate aminotransferase [ Enzymatic activity/volume] in Serum or PlasmaOrdered By: Oren Lara on 01-31-2025 AST [Catalytic activity/Vol] Aspartate aminotransferase [Enzymatic activity/volume] in Serum or Plasma 13-39 [place] Bilirubin.total [Mass/volume ] in Serum or PlasmaOrdered By: Oren Lara on 01-31-2025 Bilirubin [Mass/Vol] Bilirubin.total [Mass/volume] in Serum or Plasma High 0.3-1.0 [place] Comment on above: Samples from patient s who have taken Naproxen have shown spurious elevation in Total Bilirubin levels. A metabolite of Naproxen, O-desmethylnaproxen, has been shown to interfere with the [place] method for measuring Total Bilirubin. Complete Blood Count Auto Di ffon 01-31-2025 Basophils (Bld) [#/Vol] 0.1 10*3/uL Normal 0.0-0.2 [facility] Comment on above: Result Comment: PERF ORMED BY: [facility] [address] [place] [address] PATHOLOGIST EXTENSION SPECIALIST AUNRADHA GRANADOS M.D. Performed By: #### R LIANNA Hall #### [place] [address] [place] Basophils/100 WBC (Bld) 1.2 % Normal . [facility] Comment on above: Performed By: #### R LIANNA K #### [place] [address] [place] Eosinophils (Bld) [#/Vol] 0.2 10*3/uL Normal 0.0-0.45 [facility] Comment on above: Performed By: #### Yasmin DSOUZA K #### [place] [address] [place] Eosinophils/100 WBC (Bld) 3.3 % Normal . [facility] Comment on above: Performed By: #### Yasmin DSOUZA K #### [address] Erythrocyte distribution width (RBC) [Ratio] 13.8 % Normal 12.0-14.8 [facility] Comment on above: Performed By: #### Yasmin DSOUZA K #### [address] Hematocrit (Bld) [Volume fraction] 41.4 % Normal 38.8-50.0 [facility] Comment on above: Performed By: #### Yasmin DSOUZA K #### [address] Hemoglobin (Bld) [Mass/Vol] 14.3 g/dL Normal 13.0-17.0 [facility] Comment on above: Performed By: #### Yasmin DSUOZA K #### [place] [address] [place] Lymphocytes (Bld) [#/Vol] 1.3 10*3/uL Normal 1.00-4.8 [facility] Comment on above: Performed By: #### R LIANNA K #### [place] [address] [place] Lymphocytes/100 WBC (Bld) 22.5 % Normal . [facility] Comment on above: Performed By: #### Yasmin Hall #### [address] MCH (RBC) [Entitic mass] 29.4 pg Normal 27.5-35.2 [facility] Comment on above: Performed By: #### Yasmin DSOUZA K #### [address] MCV (RBC) [Entitic vol] 85.5 fL Normal 83.5-101 [facility] Comment on above: Performed By: #### Yasmin DSOUZA K #### [address] Mean Corpuscular HGB Conc 34.4 g/dL Normal 32.5-35.6 [facility] Comment on above: Performed By: #### Yasmin Hall #### [address] Monocytes (Bld) [#/Vol] 0.8 10*3/uL Normal 0.0-0.8 [facility] Comment on above: Performed By: #### Yasmin Hall #### [address] Monocytes/100 WBC (Bld) 13.8 % Normal . [facility] Comment on above: Performed By: #### Yasmin Hall #### [address] Neutrophils (Bld) [#/Vol] 3.4 10*3/uL Normal 1.8-7.7 [facility] Comment on above: Performed By: #### Yasmin Hall #### [address] Neutrophils/100 WBC (Bld) 59.2 % Normal . [facility] Comment on above: Performed By: #### Yasmin DSOUZA K #### [address] NRBC% 0.1 /100{WBC} Normal 0-0.5 [facility] Comment on above: Performed By: #### Yasmin Hall #### [address] Platelet mean volume (Bld) [Entitic vol] 8.6 fL Normal 6.6-10.1 [facility] Comment on above: Performed By: #### Yasmin Hall #### [address] Platelets (Bld) [#/Vol] 164 10*3/uL Normal 150-450 [facility] Comment on above: Performed By: #### Yasmin Hall #### [address] RBC (Bld) [#/Vol] 4.84 10*6/uL Normal 3.90-5.60 [facility] Comment on above: Performed By: #### Yasmin Hall #### [address] WBC (Bld) [#/Vol] 5.8 10*3/uL Normal 4.1-10.5 [facility] Comment on above: Performed By: #### Yasmin Hall #### [address] Comprehensive Metabolic Pane chuy 01-31-2025 Albumin [Mass/Vol] 3.4 g/dL Low 3.5-5.7 [facility] Comment on above: Performed By: #### Yasmin Hall #### [address] Albumin/Globulin [Mass ratio] 1.0 {ratio} Normal [facility] Comment on above: Performed By: #### Yasmin Hall #### [address] ALP [Catalytic activity/Vol] 89 U/L Normal 34-104 [facility] Comment on above: Performed By: #### Yasmin Hall #### [address] ALT [Catalytic activity/Vol] 17 U/L Normal 7-52 [facility] Comment on above: Performed By: #### Yasmin Hall #### [address] Anion gap [Moles/Vol] 10.0 mmol/L Normal 6.0-15.0 [facility] Comment on above: Performed By: #### Yasmin DSOUZA K #### [address] AST [Catalytic activity/Vol] 37 U/L Normal 13-39 [facility] Comment on above: Performed By: #### Yasmin DSOUZA K #### [address] Bilirubin [Mass/Vol] 1.4 mg/dL High 0.3-1.0 [facility] Comment on above: Result Comment: Samp les from patients who have taken Naproxen have shown spurious elevation in Total Bilirubin levels. A metabolite of Naproxen, O-desmethylnaproxen, has been shown to interfere with the [place]f method for measuring Total Bilirubin. Performed By: #### Yasmin DSOUZA K #### [address] Calcium [Mass/Vol] 8.8 mg/dL Normal 8.6-10.3 [facility] Comment on above: Performed By: #### Yasmin DSOUZA K #### [place] [address] [place] Chloride [Moles/Vol] 100 mmol/L Normal 98-107 [facility] Comment on above: Performed By: #### Yasmin Hall #### [place] [address] [place] CO2 [Moles/Vol] 30.1 mmol/L Normal 21.0-31.0 [facility] Comment on above: Performed By: #### Yasmin DSOUZA K #### [address] Creatinine [Mass/Vol] 0.74 mg/dL Normal 0.70-1.30 [facility] Comment on above: Performed By: #### Yasmin Hall #### [address] Creatinine Clr Calc Pharmacy 79.49 Normal [facility] Comment on above: Performed By: #### Yasmin Hall #### [place] [address] [place] GFR/1.73 sq M.predicted MDRD (S/P/Bld) [Vol rate/Area] mL/min/{1.73_m2} Normal [facility] Comment on above: Performed By: #### Yasmin Hall #### [address] Globulin (S) [Mass/Vol] 3.3 g/dL Normal [facility] Comment on above: Performed By: #### Yasmin Hall #### [address] Glucose [Mass/Vol] 108 mg/dL High 70-100 [facility] Comment on above: Result Comment: [place] Glucose Reference Range is dependent on time and content of last meal. Glucose of more than 200 mg/dL in a nonstressed, ambulatory subject supports the diagnosis of Diabetes Mellitus. ADA recommended reference range Performed By: #### Yasmin Hall #### [address] Potassium [Moles/Vol] 3.1 mmol/L Low 3.5-5.1 [facility] Comment on above: Performed By: #### Yasmin Hall #### [address] Protein [Mass/Vol] 6.7 g/dL Normal 6.4-8.9 [facility] Comment on above: Performed By: #### Yasmin Hall #### [address] Sodium [Moles/Vol] 137 mmol/L Normal 136-145 [facility] Comment on above: Performed By: #### Yasmin Hall #### [address] Urea nitrogen [Mass/Vol] 21 mg/dL Normal 7-25 [facility] Comment on above: Performed By: #### R LIANNA Hall #### [facility] [address] Globulin Calc (S) [Mass/Vol] Ordered By: Oren Lara on 01-31-2025 Globulin (S) [Mass/Vol] Serum globulin measurement by calculation (mass/volume) [place] Prealbuminon 01-31-2025 Prealbumin [Mass/Vol] 13.1 mg/dL Low 17.0-34.0 [facility] Comment on above: Result Comment: PERF ORMED BY: [place] [address] PATHOLOGIST EXTENSION SPECIALIST ANURADHA GRANADOS M.D. Performed By: #### R LIANNA K #### [address] Prealbumin [Mass/volume] in Serum or PlasmaOrdered By: Oren Lara on 01-31-2025 Prealbumin [Mass/Vol] Prealbumin [Mass/v olume] in Serum or Plasma Low 17.0-34.0 [place] Protein [Mass/volume] in Ser um or PlasmaOrdered By: Oren Lara on 01-31-2025 Protein [Mass/Vol] Protein [Mass/volume ] in Serum or Plasma 6.4-8.9 [place] Serum or plasma albumin/glob ulin mass ratioOrdered By: Oren Lara on 01-31-2025 Albumin/Globulin [Mass ratio] Serum or plasma albumin/globulin mass ratio [place] AMPAR1 Ab [Presence] in Seru m by ImmunofluorescenceOrdered By: Bartolome Amezquita on 01-30-2025 AMPAR1 Ab IF Ql (S) AMPAR1 Ab [Presence] in Serum by Immunofluorescence Negative [place] Comment on above: This test was develieo ped and its performance characteristicsdetermined by [facility]. It has not been cleared orapproved by the Food and Drug Administration. AMPAR2 Ab [Presence] in Seru m by ImmunofluorescenceOrdered By: Bartolome Amezquita on 01-30-2025 AMPAR2 Ab IF Ql (S) AMPAR2 Ab [Presence] in Serum by Immunofluorescence Negative [place] Comment on above: This test was develo ped and its performance characteristicsdetermined by [facility]. It has not been cleared orapproved by the Food and Drug Administration. Amphiphysin Ab [Presence] in SerumOrdered By: Bartolome Amezquita on 01-30-2025 Amphiphysin Ab Ql (S) Amphiphysin Ab [Pr esence] in Serum Negative [place] Comment on above: This test was develo ped and its performance characteristicsdetermined by [facility]. It has not been cleared orapproved by the Food and Drug Administration. Autoimmune Encephalitis Prof on 01-30-2025 AGNA-1 Negative Normal Negative [facility] Comment on above: Order Comment: deniz harrell Result Comment: This test was developed and its performance characteristics determined by [facility]. It has not been cleared or approved by the Food and Drug Administration. Performed By: #### P TT, PT #### [address] AMPA-R1 Antibody Negative Normal Negative [facility] Comment on above: Order Comment: deniz harrell Result Comment: This test was developed and its performance characteristics determined by [facility]. It has not been cleared or approved by the Food and Drug Administration. Performed By: #### P TT, PT #### [address] AMPA-R2 Antibody Negative Normal Negative [facility] Comment on above: Order Comment: deniz harrell Result Comment: This test was developed and its performance characteristics determined by [facility]. It has not been cleared or approved by the Food and Drug Administration. Performed By: #### P TT, PT #### [place] [address] [place] Amphiphysin Antibody Negative Normal Negative [facility] Comment on above: Order Comment: deniz harrell Result Comment: This test was developed and its performance characteristics determined by [facility]. It has not been cleared or approved by the Food and Drug Administration. Performed By: #### P TT, PT #### [place] [address] [place] Anti-Hu Ab Negative Normal Negative [facility] Comment on above: Order Comment: sharri crn Result Comment: This test was developed and its performance characteristics determined by [facility]. It has not been cleared or approved by the Food and Drug Administration. Performed By: #### P TT, PT #### [place] [address] [place] Anti-Ri Antibody Negative Normal Negative [facility] Comment on above: Order Comment: sharri crn Result Comment: This test was developed and its performance characteristics determined by [facility]. It has not been cleared or approved by the Food and Drug Administration. Performed By: #### P TT, PT #### [place] [address] [place] Antineuronal nuclear Ab Type 3 Negative Normal Negative [facility] Comment on above: Order Comment: sharri crn Result Comment: This test was developed and its performance characteristics determined by [facility]. It has not been cleared or approved by the Food and Drug Administration. Performed By: #### P TT, PT #### [place] [address] [place] Autoimmune Encephalitis Prof Negative Normal Negative [facility] Comment on above: Order Comment: sharri crn Result Comment: No i nformative autoantibodies were detected. However, a negative result does not exclude idiopathic or paraneoplastic autoimmune encephalopathy. Performed By: #### P TT, PT #### [place] [address] [place] CASPR2 Antibody Cell-based IFA Negative Normal Negative [facility] Comment on above: Order Comment: sharri, crn Result Comment: This test was developed and its performance characteristics determined by [facility]. It has not been cleared or approved by the Food and Drug Administration. Performed By: #### P TT, PT #### [place] [address] [place] CRMP-5 IgG Negative Normal Negative [facility] Comment on above: Order Comment: sharri, crn Result Comment: This test was developed and its performance characteristics determined by [facility]. It has not been cleared or approved by the Food and Drug Administration. Performed By: #### P TT, PT #### [address] DNER Antibody Negative Normal Negative [facility] Comment on above: Order Comment: deniz harrell Result Comment: This test was developed and its performance characteristics determined by [facility]. It has not been cleared or approved by the Food and Drug Administration. Performed By: #### P TT, PT #### [address] DPPX Antibody Negative Normal Negative [facility] Comment on above: Order Comment: sharrideniz angela Result Comment: This test was developed and its performance characteristics determined by [facility]. It has not been cleared or approved by the Food and Drug Administration. Performed By: #### P TT, PT #### [address] TAYLOR-B-[id number] Antibody Negative Normal Negative [facility] Comment on above: Order Comment: deniz harrell Result Comment: This test was developed and its performance characteristics determined by [facility]. It has not been cleared or approved by the Food and Drug Administration. Performed By: #### P TT, PT #### [address] GAD65 Antibody Negative Normal Negative [facility] Comment on above: Order Comment: deniz harrell Result Comment: This test was developed and its performance characteristics determined by [facility]. It has not been cleared or approved by the Food and Drug Administration. Performed By: #### P TT, PT #### [place] [address] [place] IgLON5 Antibody Negative Normal Negative [facility] Comment on above: Order Comment: deniz harrell Result Comment: This test was developed and its performance characteristics determined by [facility]. It has not been cleared or approved by the Food and Drug Administration. Performed By: #### P TT, PT #### [address] ITPR1 Antibody Negative Normal Negative [facility] Comment on above: Order Comment: deniz harrell Result Comment: This test was developed and its performance characteristics determined by [facility]. It has not been cleared or approved by the Food and Drug Administration. Performed By: #### P TT, PT #### [address] LGI1 Antibody Cell-based IFA Negative Normal Negative [facility] Comment on above: Order Comment: deniz harrell Result Comment: This test was developed and its performance characteristics determined by [facility]. It has not been cleared or approved by the Food and Drug Administration. Performed at: [address] [id number] [employer] Installation Engineer: Alfonso Pickens MD, Phone: [phone] PERFORMED BY: [place] [address] PATHOLOGIST EXTENSION SPECIALIST ANURADHA GRANADOS M.D. Performed By: #### P TT, PT #### [address] Ma/Ta Antibody Negative Normal Negative [facility] Comment on above: Order Comment: deniz harrell Result Comment: This test was developed and its performance characteristics determined by [facility]. It has not been cleared or approved by the Food and Drug Administration. Performed By: #### P TT, PT #### [address] mGluR1 Antibody Negative Normal Negative [facility] Comment on above: Order Comment: deniz harrell Result Comment: This test was developed and its performance characteristics determined by [facility]. It has not been cleared or approved by the Food and Drug Administration. Performed By: #### P TT, PT #### [address] NMDA-R Antibody Negative Normal Negative [facility] Comment on above: Order Comment: deniz harrell Result Comment: This test was developed and its performance characteristics determined by [facility]. It has not been cleared or approved by the Food and Drug Administration. Performed By: #### P TT, PT #### [address] COMMERCIAL ARTIST Type-1 (Anti-Yo) Antibody Negative Normal Negative [facility] Comment on above: Order Comment: deniz harrell Result Comment: This test was developed and its performance characteristics determined by [facility]. It has not been cleared or approved by the Food and Drug Administration. Performed By: #### P TT, PT #### [address] Purkinje Cell Cyto Ab Type 2 Negative Normal Negative [facility] Comment on above: Order Comment: deniz harrell Result Comment: This test was developed and its performance characteristics determined by [facility]. It has not been cleared or approved by the Food and Drug Administration. Performed By: #### P TT, PT #### [address] Purkinje Cell Cyto Ab Type Tr Negative Normal Negative [facility] Comment on above: Order Comment: deniz harrell Result Comment: This test was developed and its performance characteristics determined by [facility]. It has not been cleared or approved by the Food and Drug Administration. Performed By: #### P TT, PT #### [address] Zic4 Antibody Negative Normal Negative [facility] Comment on above: Order Comment: deniz harrell Result Comment: This test was developed and its performance characteristics determined by [facility]. It has not been cleared or approved by the Food and Drug Administration. Performed By: #### P TT, PT #### [address] CV2 IgG Ab [Units/volume] in SerumOrdered By: Bartolome Amezquita on 01-30-2025 CV2 IgG Qn (S) CV2 IgG Ab [Units/vo lume] in Serum Negative [place] Comment on above: This test was develo ped and its performance characteristicsdetermined by [facility]. It has not been cleared orapproved by the Food and Drug Administration. Contactin-associated protein 2 IgG Ab [Presence] in Serum or Plasma by ImmunofluorescOrdered By: Bartolome Amezquita on 01-30-2025 Contactin-associated protein 2 IgG IF Ql Contactin-associated protein 2 IgG Ab [Presence] in Serum or Plasma by Immunofluoresc Negative [place] Comment on above: This test was develo [...] in Serum or Plasma by Immu Negative [place] Comment on above: This test was develo ped and its performance characteristicsdetermined by [facility]. It has not been cleared orapproved by the Food and Drug Administration. GABABR Ab [Presence] in Seru m by ImmunofluorescenceOrdered By: Bartolome Amezquita on 01-30-2025 GABABR Ab IF Ql (S) GABABR Ab [Presence] in Serum by Immunofluorescence Negative [place] Comment on above: This test was develo ped and its performance characteristicsdetermined by [facility]. It has not been cleared orapproved by the Food and Drug Administration. Glial nuclear type 1 Ab [Pre sence] in Serum by ImmunofluorescenceOrdered By: Bartolome Amezquita on 01-30-2025 Glial nuclear type 1 Ab IF Ql (S) Glial nuclear type 1 Ab [Presence] in Serum by Immunofluorescence Negative [place] Comment on above: This test was develo ped and its performance characteristicsdetermined by [facility]. It has not been cleared orapproved by the Food and Drug Administration. Glutamate decarboxylase 65 I gG+IgM Ab [Moles/volume] in Serum by ImmunoassayOrdered By: Bartolome Amezquita on 01-30-2025 Glutamate decarboxylase 65 IgG+IgM IA (S) [Moles/Vol] Glutamate decarboxylase 65 IgG+IgM Ab [Moles/volume] in Serum by Immunoassay Negative [place] Comment on above: This test was develo ped and its performance characteristicsdetermined by [facility]. It has not been cleared orapproved by the Food and Drug Administration. IgLON5 IgG Ab [Presence] in Serum by ImmunofluorescenceOrdered By: Bartolome Amezquita on 01-30-2025 IgLON5 IgG Ab [Presence] in Serum by Immunofluorescence IgLON5 IgG Ab [Presence] in Serum by Immunofluorescence Negative [place] Comment on above: This test was develo ped and its performance characteristicsdetermined by [employer]. It has not been cleared orapproved by the Food and Drug Administration. Inositol 1,4,5-trisphosphate receptor type 1 IgG Ab [Presence] in Serum by ImmunofluoOrdered By: Bartolome Amezquita on 01-30-2025 Inositol 1,4,5-trisphosphate receptor type 1 IgG Ab [Presence] in Serum by Immunofluo Inositol 1,4,5-trisphosphate receptor type 1 IgG Ab [Presence] in Serum by Immunofluo Negative [place] Comment on above: This test was develo ped and its performance characteristicsdetermined by [employer]. It has not been cleared orapproved by the Food and Drug Administration. Leucine-rich glioma-inactiva dexter protein 1 IgG Ab [Presence] in Serum or Plasma by ImmOrdered By: Bartolome Amezquita on 01-30-2025 Leucine-rich glioma-inactivated protein 1 IgG IF Ql Leucine-rich glioma-inactivated protein 1 IgG Ab [Presence] in Serum or Plasma by Imm Negative [place] Comment on above: This test was develo ped and its performance characteristicsdetermined by [employer]. It has not been cleared orapproved by the Food and Drug Administration.Performed at: [address] [id number] Director: Alfonso Pickens MD, Phone: [phone] Ma+Ta Ab [Presence] in Serum Ordered By: Bartolome Amezquita on 01-30-2025 Ma+Ta Ab Ql (S) Ma+Ta Ab [Presence] in Serum Negative [place] Comment on above: This test was develo ped and its performance characteristicsdetermined by [employer]. It has not been cleared orapproved by the Food and Drug Administration. Metabotropic glutamate retail center receptionist tor 1 IgG Ab [Presence] in Serum by ImmunofluorescenceOrdered By: Bartolome Amezquita on 01-30-2025 Metabotropic glutamate receptor 1 IgG IF Ql (S) Metabotropic glutamate receptor 1 IgG Ab [Presence] in Serum by Immunofluorescence Negative [place] Comment on above: This test was develo ped and its performance characteristicsdetermined by [employer]. It has not been cleared orapproved by the Food and Drug Administration. NMDAR subunit 1 Ab [Presence ] in Serum by ImmunofluorescenceOrdered By: Bartolome Amezquita on 01-30-2025 NMDAR subunit 1 Ab IF Ql (S) NMDAR subunit 1 Ab [Presence] in Serum by Immunofluorescence Negative [place] Comment on above: This test was develo ped and its performance characteristicsdetermined by [facility]. It has not been cleared orapproved by the Food and Drug Administration. Neuronal nuclear Ab [Presenc e] in Serum by ImmunofluorescenceOrdered By: Bartolome Amezquita on 01-30-2025 Neuronal nuclear Ab IF Ql (S) Neuronal nuclear Ab [Presence] in Serum by Immunofluorescence Negative [place] Comment on above: This test was develo ped and its performance characteristicsdetermined by [facility]. It has not been cleared orapproved by the Food and Drug Administration. Neuronal nuclear type 2 Ab [ Presence] in Serum by ImmunofluorescenceOrdered By: Bartolome Amezquita on 01-30-2025 Neuronal nuclear type 2 Ab IF Ql (S) Neuronal nuclear type 2 Ab [Presence] in Serum by Immunofluorescence Negative [place] Comment on above: This test was develo ped and its performance characteristicsdetermined by [employer]. It has not been cleared orapproved by the Food and Drug Administration. Neuronal nuclear type 3 Ab [ Presence] in SerumOrdered By: Bartolome Amezquita on 01-30-2025 Neuronal nuclear type 3 Ab Ql (S) Neuronal nuclear type 3 Ab [Presence] in Serum Negative [place] Comment on above: This test was develo ped and its performance characteristicsdetermined by [facility]. It has not been cleared orapproved by the Food and Drug Administration. No Panel InformationOrdered By: Bartolome Amezquita on 01-30-2025 Encephalopathy Autoimmune Interp Negative Negative [place] Comment on above: No informative autoa ntibodies were detected. However, anegative result does not exclude idiopathic orparaneoplastic autoimmune encephalopathy. COMMERCIAL ARTIST-1 Ab [Presence] in Serum by ImmunofluorescenceOrdered By: Bartolome Amezquita on 01-30-2025 COMMERCIAL ARTIST-1 Ab IF Ql (S) COMMERCIAL ARTIST-1 Ab [Presence] in Serum by Immunofluorescence Negative [place] Comment on above: This test was develo ped and its performance characteristicsdetermined by [facility]. It has not been cleared orapproved by the Food and Drug Administration. COMMERCIAL ARTIST-2 Ab [Presence] in Serum by ImmunofluorescenceOrdered By: Bartolome Amezquita on 01-30-2025 COMMERCIAL ARTIST-2 Ab IF Ql (S) COMMERCIAL ARTIST-2 Ab [Presence] in Serum by Immunofluorescence Negative [place] Comment on above: This test was develo ped and its performance characteristicsdetermined by [facility]. It has not been cleared orapproved by the Food and Drug Administration. COMMERCIAL ARTIST-Tr Ab [Presence] in Seru m by ImmunofluorescenceOrdered By: Bartolome Amezquita on 01-30-2025 COMMERCIAL ARTIST-Tr Ab IF Ql (S) COMMERCIAL ARTIST-Tr Ab [Presence] in Serum by Immunofluorescence Negative [place] Comment on above: This test was develo [...] cerebellum 4 Ab [Presence] in Serum Negative [place] Comment on above: This test was develo ped and its performance characteristicsdetermined by [facility]. It has not been cleared orapproved by the Food and Drug Administration. Basic Metabolic Panelon Anion gap [Moles/Vol] Not performed Normal 6.0-15.0 [facility] Comment on above: Performed By: #### E RBMP #### [facility] [address] Point of Care testing , Calcium [Mass/Vol] 9.3 mg/dL Normal 8.6-10.3 [facility] Comment on above: Performed By: #### E RBMP #### [facility] [address] [place] [id number] [facility] Point of Care testing , Chloride [Moles/Vol] 99 mmol/L Normal 98-107 [facility] Comment on above: Performed By: #### E RBMP #### [facility] [address] [place] [id number] [facility] Point of Care testing , CO2 [Moles/Vol] 30.1 mmol/L Normal 21.0-31.0 [facility] Comment on above: Performed By: #### E RBMP #### [address] Point of Care testing , Creatinine [Mass/Vol] 0.73 mg/dL Normal 0.70-1.30 [facility] Comment on above: Performed By: #### E RBMP #### [address] Point of Care testing , Creatinine Clr Calc Pharmacy 70.06 Normal [facility] Comment on above: Result Comment: PERF ORMED BY: [place] [address] PATHOLOGIST EXTENSION SPECIALIST ANURADHA GRANADOS M.D. Performed By: #### E RBMP #### [address] Point of Care testing , GFR/1.73 sq M.predicted MDRD (S/P/Bld) [Vol rate/Area] mL/min/{1.73_m2} Normal [facility] Comment on above: Performed By: #### E RBMP #### [address] Point of Care testing , Glucose [Mass/Vol] 95 mg/dL Normal 70-100 [facility] Comment on above: Result Comment: [place] Glucose Reference Range is dependent on time and content of last meal. Glucose of more than 200 mg/dL in a nonstressed, ambulatory subject supports the diagnosis of Diabetes Mellitus. ADA recommended reference range Performed By: #### E RBMP #### [address] Point of Care testing , Potassium Normal 3.5-5.1 [facility] Comment on above: Result Comment: Spec imen hemolyzed, redraw requested Performed By: #### E RBMP #### [address] Point of Care testing , Sodium [Moles/Vol] 139 mmol/L Normal 136-145 [facility] Comment on above: Performed By: #### E RBMP #### [address] [address] [place] Point of Care testing , Urea nitrogen [Mass/Vol] 28 mg/dL High 7-25 [facility] Comment on above: Performed By: #### [facility] #### [facility] [address] [place] [address] Point of Care testing , CT chest w conon 01-29-2025 CT chest w con [facility] [place] [address] [address] CT Scan Report Signed Patient: Bailee Traore MR#: [id number] : 1945 Acct:[id number] Age/Sex: 79 / M ADM Date: 01/26/25 Loc: Room: [address] [place] [address] Type: ADM IN Attending Dr: Kofi Mauricio MD Copies to: DO Kofi Garcia MD Ordering Provider: Bartolome Amezquita DO Date of Service: 01/29/25 CT/CT chest w con: possible brain neoplasms ([id number]) CT/CT abdomen pelvis w con: possible brain [...] Christiano Salinas M.D.01/29/2025 7:48 PM Dictation Location: [place] [address] Transcribed By: [facility] 01/29/251947 Dictated By: Christiano Salinas MD 01/29/251940 Signed By: 01/29/251947 Normal [facility] Calcium [Mass/volume] in Ser um or PlasmaOrdered By: Kofi Mauricio on 01-29-2025 Calcium [Mass/Vol] Calcium [Mass/volume ] in Serum or Plasma 8.6-10.3 [place] Carbon dioxide, total [Moles /volume] in Serum or PlasmaOrdered By: Kofi Mauricio on 01-29-2025 CO2 [Moles/Vol] Carbon dioxide, tota l [Moles/volume] in Serum or Plasma 21.0-31.0 [place] Chloride [Moles/volume] in S danielle or PlasmaOrdered By: Kofi Mauricio on 01-29-2025 Chloride [Moles/Vol] Chloride [Moles/vol ume] in Serum or Plasma 98-107 [place] Creatinine [Mass/volume] in Serum or PlasmaOrdered By: Kofi Mauricio on 01-29-2025 Creatinine [Mass/Vol] Creatinine [Mass/v olume] in Serum or Plasma 0.70-1.30 [place] Glucose [Mass/volume] in Ser um or PlasmaOrdered By: Kofi Mauricio on 01-29-2025 Glucose [Mass/Vol] Glucose [Mass/volume ] in Serum or Plasma 70-100 [place] Comment on above: ADA recommended refe rence rangeRandom Glucose Reference Range is dependent on time and content of last meal. Glucose of more than 200 mg/dL in a nonstressed, ambulatory subject supports the diagnosis of Diabetes Mellitus. MR head/brain wo/w conon MR head/brain wo/w con [facility] Main [place] [address] [place] [address] MRI Report Signed Patient: Bailee Traore MR#: [id number] : 1945 Acct:[id number] Age/Sex: 79 / M ADM Date: 01/26/25 Loc: Room: [address] [place] [address] Type: ADM IN Attending Dr: Kofi Mauricio [...] Christiano Salinas M.D.01/29/2025 3:13 PM Dictation Location: [place] [address] Transcribed By: [facility] 01/29/25 1513 Dictated By: Christiano Salinas MD 01/29/25 1437 Signed By: 01/29/25 1513 Normal [facility] Magnetic resonance imaging r eportOrdered By: Christiano Salinas on 01-29-2025 Study report [facility] Main [place] [address] [place] [address] MRI Report Signed Patient: Bailee Traore MR#: [id number] : 1945 Acct:[id number] Age/Sex: 79 / M ADM Date: 5 Loc: Room: [address] [place] [address] Type: ADM IN Attending Dr: Kofi Mauricio [...] Christiano Salinas M.D.01/29/2025 3:13 PM Dictation Location: [place] [address] Transcribed By: [facility] 01/29/25 1513 Dictated By: Christiano Salinas MD 01/29/25 1437 Signed By: 01/29/25 [facility]3 [place] Work Phone: No Panel InformationOrdered By: Kofi Mauricio on 01-29-2025 Estimated GFR (CKD-EPI) > 60.0 mL/Min [place] [facility] Creatinine Clearance (Chem 70.06 [place] Potassium [Moles/volume] in Serum or PlasmaOrdered By: Kofi Mauricio on 01-29-2025 Potassium [Moles/Vol] Potassium [Moles/v olume] in Serum or Plasma 3.5-5.1 [place] Redraw Potassiumon Potassium [Moles/Vol] 3.9 mmol/L Normal 3.5-5.1 [facility] Comment on above: Result Comment: PERF ORMED BY: [facility] [address] [place] [address] PATHOLOGIST EXTENSION SPECIALIST ANURADHA GRANADOS M.D. Performed By: #### R LIANNA Hall #### [facility] [address] Serum or plasma anion gap de terminationOrdered By: Kofi Mauricio on 01-29-2025 Anion gap [Moles/Vol] Serum or plasma an ion gap determination [place] Comment on above: Test not performed Sodium [Moles/volume] in Ser um or PlasmaOrdered By: Kofi Mauricio on 01-29-2025 Sodium [Moles/Vol] Sodium [Moles/volume ] in Serum or Plasma 136-145 [place] Urea nitrogen [Mass/volume] in Serum or PlasmaOrdered By: Kofi Mauricio on 01-29-2025 Urea nitrogen [Mass/Vol] Urea nitrogen [Mass/volume] in Serum or Plasma High 7-25 [place] Basic Metabolic Panelon 03 Anion gap [Moles/Vol] 10.4 mmol/L Normal 6.0-15.0 [facility] Comment on above: Performed By: #### E RBMP #### [facility] [address] Point of Care testing , Calcium [Mass/Vol] 9.4 mg/dL Normal 8.6-10.3 [facility] Comment on above: Performed By: #### E RBMP #### [facility] [address] Point of Care testing , Chloride [Moles/Vol] 98 mmol/L Normal 98-107 [facility] Comment on above: Performed By: #### E RBMP #### [facility] [address] [place] [id number] [facility] Point of Care testing , CO2 [Moles/Vol] 33.8 mmol/L High 21.0-31.0 [facility] Comment on above: Performed By: #### E RBMP #### [facility] [address] [place] [id number] [facility] Point of Care testing , Creatinine [Mass/Vol] 0.87 mg/dL Normal 0.70-1.30 [facility] Comment on above: Performed By: #### E RBMP #### [address] Point of Care testing , Creatinine Clr Calc Pharmacy 64.43 Normal [facility] Comment on above: Result Comment: PERF ORMED BY: [place] [address] PATHOLOGIST EXTENSION SPECIALIST ANURADHA GRANADOS M.D. Performed By: #### E RBMP #### [address] Point of Care testing , GFR/1.73 sq M.predicted MDRD (S/P/Bld) [Vol rate/Area] mL/min/{1.73_m2} Normal [facility] Comment on above: Performed By: #### E RBMP #### [address] Point of Care testing , Glucose [Mass/Vol] 109 mg/dL High 70-100 [facility] Comment on above: Result Comment: [facility] Glucose Reference Range is dependent on time and content of last meal. Glucose of more than 200 mg/dL in a nonstressed, ambulatory subject supports the diagnosis of Diabetes Mellitus. ADA recommended reference range Performed By: #### E RBMP #### [address] Point of Care testing , Potassium [Moles/Vol] 3.2 mmol/L Low 3.5-5.1 [facility] Comment on above: Performed By: #### E RBMP #### [address] Point of Care testing , Sodium [Moles/Vol] 139 mmol/L Normal 136-145 [facility] Comment on above: Performed By: #### E RBMP #### [address] Point of Care testing , Urea nitrogen [Mass/Vol] 21 mg/dL Normal 7-25 [facility] Comment on above: Performed By: #### E RBMP #### [address] Point of Care testing , Basophils Auto (Bld) [#/Vol] Ordered By: Bennett Navarro on 01-28-2025 Basophils (Bld) [#/Vol] Automated basophil count 0.0-0.2 [place] Basophils/100 WBC Auto (Bld) Ordered By: Bennett Navarro on 01-28-2025 Basophils/100 WBC (Bld) Automated basophil % . [place] Complete Blood Count Auto Di ffon 01-28-2025 Basophils (Bld) [#/Vol] 0.1 10*3/uL Normal 0.0-0.2 [facility] Comment on above: Result Comment: PERF ORMED BY: [place] [address] PATHOLOGIST EXTENSION SPECIALIST ANURADHA GRANADOS M.D. Performed By: #### E RBMP #### [address] Point of Care testing , Basophils/100 WBC (Bld) 1.2 % Normal . [facility] Comment on above: Performed By: #### E RBMP #### [address] Point of Care testing , Eosinophils (Bld) [#/Vol] 0.1 10*3/uL Normal 0.0-0.45 [facility] Comment on above: Performed By: #### E RBMP #### [address] Point of Care testing , Eosinophils/100 WBC (Bld) 2.0 % Normal . [facility] Comment on above: Performed By: #### E RBMP #### [address] Point of Care testing , Erythrocyte distribution width (RBC) [Ratio] 14.1 % Normal 12.0-14.8 [facility] Comment on above: Performed By: #### E RBMP #### [address] Point of Care testing , Hematocrit (Bld) [Volume fraction] 44.4 % Normal 38.8-50.0 [facility] Comment on above: Performed By: #### E RBMP #### [address] Point of Care testing , Hemoglobin (Bld) [Mass/Vol] 15.1 g/dL Normal 13.0-17.0 [facility] Comment on above: Performed By: #### E RBMP #### [address] Point of Care testing , Lymphocytes (Bld) [#/Vol] 1.8 10*3/uL Normal 1.00-4.8 [facility] Comment on above: Performed By: #### E RBMP #### [address] Point of Care testing , Lymphocytes/100 WBC (Bld) 27.6 % Normal . [facility] Comment on above: Performed By: #### E RBMP #### [address] Point of Care testing , MCH (RBC) [Entitic mass] 29.1 pg Normal 27.5-35.2 [facility] Comment on above: Performed By: #### E RBMP #### [address] Point of Care testing , MCV (RBC) [Entitic vol] 85.6 fL Normal 83.5-101 [facility] Comment on above: Performed By: #### E RBMP #### [address] Point of Care testing , Mean Corpuscular HGB Conc 34.0 g/dL Normal 32.5-35.6 [facility] Comment on above: Performed By: #### E RBMP #### [address] Point of Care testing , Monocytes (Bld) [#/Vol] 0.7 10*3/uL Normal 0.0-0.8 [facility] Comment on above: Performed By: #### E RBMP #### [facility] [address] Point of Care testing , Monocytes/100 WBC (Bld) 11.6 % Normal . [facility] Comment on above: Performed By: #### E RBMP #### [facility] [address] [place] [address] Point of Care testing , Neutrophils (Bld) [#/Vol] 3.7 10*3/uL Normal 1.8-7.7 [facility] Comment on above: Performed By: #### E RBMP #### [address] Point of Care testing , Neutrophils/100 WBC (Bld) 57.6 % Normal . [facility] Comment on above: Performed By: #### E RBMP #### [address] Point of Care testing , NRBC% 0.1 /100{WBC} Normal 0-0.5 [facility] Comment on above: Performed By: #### E RBMP #### [address] Point of Care testing , Platelet mean volume (Bld) [Entitic vol] 8.3 fL Normal 6.6-10.1 [facility] Comment on above: Performed By: #### E RBMP #### [address] Point of Care testing , Platelets (Bld) [#/Vol] 162 10*3/uL Normal 150-450 [facility] Comment on above: Performed By: #### E RBMP #### [address] Point of Care testing , RBC (Bld) [#/Vol] 5.18 10*6/uL Normal 3.90-5.60 [facility] Comment on above: Performed By: #### E RBMP #### [address] Point of Care testing , WBC (Bld) [#/Vol] 6.4 10*3/uL Normal 4.1-10.5 [facility] Comment on above: Performed By: #### E [facility] #### [place] [id number] [facility] Point of Care testing , [facility] echo transthoracicon [facility] echo transthoracic [facility] Main [place] [address] [place] [id number] Echocardiogram Signed Patient: Bailee Traore MR#: [id number] : 1945 Acct:[id number] Age/Sex: 79 / M ADM Date: 01/26/25 Loc: Room: [address] [place] [address] Type: ADM IN Attending Dr: Kofi Mauricio MD Ordering Provider: Bennett Navarro MD Date of Service: 01/26/2512/22/1704 [facility] echo transthoracic: Pulmonary edema, stroke Copies to: [...] Jayme Pearce MD 01/28/25 1039 Normal [facility] Eosinophils Auto (Bld) [#/Vo l]Ordered By: Bennett Navarro on 01-28-2025 Eosinophils (Bld) [#/Vol] Automated eosi nophil count 0.0-0.45 [place] Eosinophils/100 WBC Auto (Bl d)Ordered By: Bennett Navarro on 01-28-2025 Eosinophils/100 WBC (Bld) Automated eosinophil % . [place] Erythrocyte distribution wid th Auto (RBC) [Ratio]Ordered By: Bennett Navarro on 01-28-2025 Erythrocyte distribution width (RBC) [Ratio] Erythrocyte distribution width [Ratio] by Automated count 12.0-14.8 [place] Hematocrit Auto (Bld) [Volum e fraction]Ordered By: Bennett Navarro on 01-28-2025 Hematocrit (Bld) [Volume fraction] Hematocrit [Volume Fraction] of Blood by Automated count 38.8-50.0 [place] Hemoglobin [Mass/volume] in BloodOrdered By: Bennett Navarro on 01-28-2025 Hemoglobin (Bld) [Mass/Vol] Hemoglobin [Mass/volume] in Blood 13.0-17.0 [place] Leukocytes [#/volume] correc dexter for nucleated erythrocytes in Blood by Automated counOrdered By: Bennett Navarro on 01-28-2025 WBC corrected for nucl RBC Auto (Bld) [#/Vol] Leukocytes [#/volume] corrected for nucleated erythrocytes in Blood by Automated coun 4.1-10.5 [place] Lymphocytes Auto (Bld) [#/Vo l]Ordered By: Bennett Navarro on 01-28-2025 Lymphocytes (Bld) [#/Vol] Lymphocytes [# /volume] in Blood by Automated count 1.00-4.8 [place] Lymphocytes/100 WBC Auto (Bl d)Ordered By: Bennett Navarro on 01-28-2025 Lymphocytes/100 WBC (Bld) Lymphocytes/10 0 leukocytes in Blood by Automated count . [place] MCH Auto (RBC) [Entitic mass ]Ordered By: Bennett Navarro on 01-28-2025 MCH (RBC) [Entitic mass] MCH [Entitic ma ss] by Automated count 27.5-35.2 [place] MCHC Auto (RBC) [Mass/Vol]Or dered By: Bennett Navarro on 01-28-2025 MCHC (RBC) [Mass/Vol] MCHC [Mass/volume] by Automated count 32.5-35.6 [place] MCV Auto (RBC) [Entitic vol] Ordered By: Bennett Navarro on 01-28-2025 MCV (RBC) [Entitic vol] MCV [Entitic vol ume] by Automated count 83.5-101 [place] Monocytes Auto (Bld) [#/Vol] Ordered By: Bennett Navarro on 01-28-2025 Monocytes (Bld) [#/Vol] Automated blood monocyte count 0.0-0.8 [place] Monocytes/100 WBC Auto (Bld) Ordered By: Bennett Navarro on 01-28-2025 Monocytes/100 WBC (Bld) Automated monocyte % . [place] Neutrophils Auto (Bld) [#/Vo l]Ordered By: Bennett Navarro on 01-28-2025 Neutrophils (Bld) [#/Vol] Neutrophils [# /volume] in Blood by Automated count 1.8-7.7 [place] Neutrophils/100 WBC Auto (Bl d)Ordered By: Bennett Navarro on 01-28-2025 Neutrophils/100 WBC (Bld) Automated neutrophil % . [place] Nucleated erythrocytes [Pres ence] in Blood by Automated countOrdered By: Bennett Navarro on 01-28-2025 Nucleated RBC Auto Ql (Bld) Nucleated erythrocytes [Presence] in Blood by Automated count 0-0.5 [place] Platelet mean volume Auto (B ld) [Entitic vol]Ordered By: Bennett Navarro on 01-28-2025 Platelet mean volume (Bld) [Entitic vol] Platelet mean volume [Entitic volume] in Blood by Automated count 6.6-10.1 [place] Platelets Auto (Bld) [#/Vol] Ordered By: Bennett Navarro on 01-28-2025 Platelets (Bld) [#/Vol] Platelets [#/vol ume] in Blood by Automated count 150-450 [place] RBC Auto (Bld) [#/Vol]Ordere d By: Bennett Navarro on 01-28-2025 RBC (Bld) [#/Vol] Erythrocytes [#/volu me] in Blood by Automated count 3.90-5.60 [place] WBC Auto (Bld) [#/Vol]Ordere d By: Bennett Navarro on 01-28-2025 WBC (Bld) [#/Vol] Leukocytes [#/volume ] in Blood by Automated count 4.1-10.5 [place] A1C with Estimated Average G luon 01-27-2025 Glucose [Mass/Vol] 123 mg/dL Normal [facility] Comment on above: Result Comment: PERF ORMED BY: [place] [address] PATHOLOGIST EXTENSION SPECIALIST ANURADHA GRANADOS M.D. Performed By: #### C BC #### [facility] [address] [place] [address] HbA1c (Bld) [Mass fraction] 5.9 % High 4.3-5.6 [facility] Comment on above: Result Comment: Incr eased risk for diabetes: 5.7 - 6.4 diabetes: >6.4 glycemic control for adults with diabetes: <7.0 Performed By: #### C BC #### [facility] [address] [place] [address] Alanine aminotransferase [En zymatic activity/volume] in Serum or PlasmaOrdered By: Bennett Navarro on 01-27-2025 ALT [Catalytic activity/Vol] Alanine aminotransferase [Enzymatic activity/volume] in Serum or Plasma 7-52 [place] Albumin [Mass/volume] in Ser um or Plasma by Bromocresol green (BCG) dye binding methoOrdered By: Bennett Navarro on 01-27-2025 Albumin BCG dye [Mass/Vol] Albumin [Mass/volume] in Serum or Plasma by Bromocresol green (BCG) dye binding metho 3.5-5.7 [place] Alkaline phosphatase [Enzyma tic activity/volume] in Serum or PlasmaOrdered By: Bennett Navarro on 01-27-2025 ALP [Catalytic activity/Vol] Alkaline phosphatase [Enzymatic activity/volume] in Serum or Plasma 34-104 [place] Aspartate aminotransferase [ Enzymatic activity/volume] in Serum or PlasmaOrdered By: Bennett Navarro on 03-02-2025 AST [Catalytic activity/Vol] Aspartate aminotransferase [Enzymatic activity/volume] in Serum or Plasma 13-39 [place] Bilirubin.total [Mass/volume ] in Serum or PlasmaOrdered By: Bennett Navarro on 01-27-2025 Bilirubin [Mass/Vol] Bilirubin.total [Mass/volume] in Serum or Plasma High 0.3-1.0 [place] Blood estimated average gluc ose determination by estimation from glycated hemoglobinOrdered By: Bennett Navarro on 01-27-2025 Average glucose Estimated from glycated hemoglobin (Bld) [Mass/Vol] Glucose mean value [Mass/volume] in Blood Estimated from glycated hemoglobin [place] Cholesterol [Mass/volume] in Serum or PlasmaOrdered By: Bennett Navarro on 01-27-2025 Cholesterol [Mass/Vol] Cholesterol [Mass /volume] in Serum or Plasma 140-200 [place] Comment on above: Chol less than 200 m g/dl low riskChol 201-239 mg/dl borderline riskChol 240 mg/dl and greater high risk Cholesterol in HDL [Mass/vol ume] in Serum or PlasmaOrdered By: Bennett Navarro on 01-27-2025 Cholesterol in HDL [Mass/Vol] Serum or plasma high density lipoprotein (HDL) cholesterol measurement 23-92 [place] Comment on above: HDL CHOL ATP-III CLA SSIFICATION Cardiovascular RiskHDL > or equal to 60 mg/dL LOWHDL < 40 mg/dL HIGH Cholesterol in LDL Calc [Mas s/Vol]Ordered By: Bennett Navarro on 01-27-2025 Cholesterol in LDL [Mass/Vol] Cholesterol in LDL [Mass/volume] in Serum or Plasma by calculation 0-100 [place] Comment on above: LDL ATP III CLASSIFI CATIONLDL less than 100 mg/dL OptimalLDL 100-129 mg/dL Near or above optimalLDL 130-159 mg/dL Borderline highLDL 160-189 mg/dL HighLDL greater than 189 mg/dL Very high Cholesterol in VLDL Calc [Ma ss/Vol]Ordered By: Bennett Navarro on 01-27-2025 Cholesterol in VLDL [Mass/Vol] Cholesterol in VLDL [Mass/volume] in Serum or Plasma by calculation [place] Complete Blood Count Auto Di ffon 01-27-2025 Basophils (Bld) [#/Vol] 0.1 10*3/uL Normal 0.0-0.2 [facility] Comment on above: Result Comment: PERF ORMED BY: [place] [address] PATHOLOGIST EXTENSION SPECIALIST ANURADHA GRANADOS M.D. Performed By: #### E RBMP #### [address] Point of Care testing , Basophils/100 WBC (Bld) 0.7 % Normal . [facility] Comment on above: Performed By: #### E RBMP #### [address] Point of Care testing , Eosinophils (Bld) [#/Vol] 0.0 10*3/uL Normal 0.0-0.45 [facility] Comment on above: Performed By: #### E RBMP #### [address] Point of Care testing , Eosinophils/100 WBC (Bld) 0.2 % Normal . [facility] Comment on above: Performed By: #### E RBMP #### [address] Point of Care testing , Erythrocyte distribution width (RBC) [Ratio] 14.2 % Normal 12.0-14.8 [facility] Comment on above: Performed By: #### E RBMP #### [address] Point of Care testing , Hematocrit (Bld) [Volume fraction] 42.6 % Normal 38.8-50.0 [facility] Comment on above: Performed By: #### E RBMP #### [address] Point of Care testing , Hemoglobin (Bld) [Mass/Vol] 14.8 g/dL Normal 13.0-17.0 [facility] Comment on above: Performed By: #### E RBMP #### [address] Point of Care testing , Lymphocytes (Bld) [#/Vol] 2.0 10*3/uL Normal 1.00-4.8 [facility] Comment on above: Performed By: #### E RBMP #### [address] Point of Care testing , Lymphocytes/100 WBC (Bld) 26.1 % Normal . [facility] Comment on above: Performed By: #### E RBMP #### [address] Point of Care testing , MCH (RBC) [Entitic mass] 29.6 pg Normal 27.5-35.2 [facility] Comment on above: Performed By: #### E RBMP #### [address] Point of Care testing , MCV (RBC) [Entitic vol] 85.4 fL Normal 83.5-101 [facility] Comment on above: Performed By: #### E RBMP #### [address] Point of Care testing , Mean Corpuscular HGB Conc 34.7 g/dL Normal 32.5-35.6 [facility] Comment on above: Performed By: #### E RBMP #### [address] Point of Care testing , Monocytes (Bld) [#/Vol] 1.0 10*3/uL High 0.0-0.8 [facility] Comment on above: Performed By: #### E RBMP #### [address] Point of Care testing , Monocytes/100 WBC (Bld) 12.5 % Normal . [facility] Comment on above: Performed By: #### E RBMP #### [address] Point of Care testing , Neutrophils (Bld) [#/Vol] 4.7 10*3/uL Normal 1.8-7.7 [facility] Comment on above: Performed By: #### E RBMP #### [address] Point of Care testing , Neutrophils/100 WBC (Bld) 60.5 % Normal . [facility] Comment on above: Performed By: #### E RBMP #### [address] Point of Care testing , NRBC% 0.1 /100{WBC} Normal 0-0.5 [facility] Comment on above: Performed By: #### E RBMP #### [address] Point of Care testing , Platelet mean volume (Bld) [Entitic vol] 7.8 fL Normal 6.6-10.1 [facility] Comment on above: Performed By: #### E RBMP #### [address] Point of Care testing , Platelets (Bld) [#/Vol] 182 10*3/uL Normal 150-450 [facility] Comment on above: Performed By: #### E RBMP #### [address] Point of Care testing , RBC (Bld) [#/Vol] 4.99 10*6/uL Normal 3.90-5.60 [facility] Comment on above: Performed By: #### E RBMP #### [address] Point of Care testing , WBC (Bld) [#/Vol] 7.7 10*3/uL Normal 4.1-10.5 [facility] Comment on above: Performed By: #### E RBMP #### [address] Point of Care testing , Comprehensive Metabolic Pane chuy 01-27-2025 Albumin [Mass/Vol] 4.1 g/dL Normal 3.5-5.7 [facility] Comment on above: Order Comment: FASTI NG Y Performed By: #### E RBMP #### [facility] [address] [place] [address] Point of Care testing , Albumin/Globulin [Mass ratio] 1.1 {ratio} Normal [facility] Comment on above: Order Comment: FASTI NG Y Performed By: #### E RBMP #### [address] Point of Care testing , ALP [Catalytic activity/Vol] 104 U/L Normal 34-104 [facility] Comment on above: Order Comment: FASTI NG Y Performed By: #### E RBMP #### [facility] [address] [place] [address] Point of Care testing , ALT [Catalytic activity/Vol] 13 U/L Normal 7-52 [facility] Comment on above: Order Comment: FASTI NG Y Performed By: #### E RBMP #### [address] Point of Care testing , Anion gap [Moles/Vol] 14.0 mmol/L Normal 6.0-15.0 [facility] Comment on above: Order Comment: FASTI NG Y Performed By: #### E RBMP #### [address] Point of Care testing , AST [Catalytic activity/Vol] 30 U/L Normal 13-39 [facility] Comment on above: Order Comment: FASTI NG Y Performed By: #### E RBMP #### [facility] [address] [place] [address] Point of Care testing , Bilirubin [Mass/Vol] 1.1 mg/dL High 0.3-1.0 [facility] Comment on above: Order Comment: FASTI NG Y Performed By: #### E RBMP #### [address] Point of Care testing , Calcium [Mass/Vol] 9.3 mg/dL Normal 8.6-10.3 [facility] Comment on above: Order Comment: FASTI NG Y Performed By: #### E RBMP #### [place] [id number] [place] Point of Care testing , Chloride [Moles/Vol] 101 mmol/L Normal 98-107 [facility] Comment on above: Order Comment: FASTI NG Y Performed By: #### E RBMP #### [address] Point of Care testing , CO2 [Moles/Vol] 32.2 mmol/L High 21.0-31.0 [facility] Comment on above: Order Comment: FASTI NG Y Performed By: #### E RBMP #### [address] Point of Care testing , Creatinine [Mass/Vol] 0.84 mg/dL Normal 0.70-1.30 [facility] Comment on above: Order Comment: FASTI NG Y Performed By: #### E RBMP #### [address] Point of Care testing , Creatinine Clr Calc Pharmacy 66.73 Normal [facility] Comment on above: Order Comment: FASTI NG Y Performed By: #### E RBMP #### [address] Point of Care testing , GFR/1.73 sq M.predicted MDRD (S/P/Bld) [Vol rate/Area] mL/min/{1.73_m2} Normal [facility] Comment on above: Order Comment: FASTI NG Y Performed By: #### E RBMP #### [address] Point of Care testing , Globulin (S) [Mass/Vol] 3.8 g/dL Normal [facility] Comment on above: Order Comment: FASTI NG Y Performed By: #### E RBMP #### [address] Point of Care testing , Glucose [Mass/Vol] 119 mg/dL High 70-100 [facility] Comment on above: Order Comment: FASTI NG Y Result Comment: [facility] Glucose Reference Range is dependent on time and content of last meal. Glucose of more than 200 mg/dL in a nonstressed, ambulatory subject supports the diagnosis of Diabetes Mellitus. ADA recommended reference range Performed By: #### E RBMP #### [facility] [address] [place] [address] Point of Care testing , Potassium [Moles/Vol] 3.2 mmol/L Low 3.5-5.1 [facility] Comment on above: Order Comment: FASTI NG Y Performed By: #### E RBMP #### [address] Point of Care testing , Protein [Mass/Vol] 7.9 g/dL Normal 6.4-8.9 [facility] Comment on above: Order Comment: FASTI NG Y Performed By: #### E RBMP #### [address] Point of Care testing , Sodium [Moles/Vol] 144 mmol/L Normal 136-145 [facility] Comment on above: Order Comment: FASTI NG Y Performed By: #### E RBMP #### [address] Point of Care testing , Urea nitrogen [Mass/Vol] 13 mg/dL Normal 7-25 [facility] Comment on above: Order Comment: FASTI NG Y Performed By: #### E RBMP #### [address] Point of Care testing , Globulin Calc (S) [Mass/Vol] Ordered By: Bennett Navarro on 01-27-2025 Globulin (S) [Mass/Vol] Serum globulin measurement by calculation (mass/volume) [place] Hemoglobin A1c/Hemoglobin.to byron in BloodOrdered By: Bennett Navarro on 01-27-2025 HbA1c (Bld) [Mass fraction] Hemoglobin A1c percentage High 4.3-5.6 [facility] Comment on above: Increased risk for d iabetes: 5.7 - 6.4diabetes: >6.4glycemic control for adults with diabetes: <7.0 INR in Platelet poor plasma by Coagulation assayOrdered By: Bennett Navarro on 01-27-2025 INR Coag (PPP) [Relative time] INR in Platelet poor plasma by Coagulation assay [place] Comment on above: INR Therapeutic Rang e [...] [Mass/Vol] 158 mg/dL Normal 140-200 [facility] Comment on above: Order Comment: FASTI NG Y Result Comment: Chol less than 200 mg/dl low risk Chol 201-239 mg/dl borderline risk Chol 240 mg/dl and greater high risk Performed By: #### E RBMP #### [facility] [address] [place] [address] Point of Care testing , Cholesterol in HDL [Mass/Vol] 56 mg/dL Normal 23-92 [facility] Comment on above: Order Comment: FASTI NG Y Result Comment: HDL CHOL ATP-III CLASSIFICATION Cardiovascular Risk HDL > or equal to 60 mg/dL LOW HDL < 40 mg/dL HIGH Performed By: #### E RBMP #### [address] Point of Care testing , Cholesterol.total/Cholest sheron in HDL [Mass ratio] 2.8 {ratio} Normal <5.0 [facility] Comment on above: Order Comment: FASTI NG Y Result Comment: PERF ORMED BY: [place] [address] PATHOLOGIST EXTENSION SPECIALIST ANURADHA GRANADOS M.D. Performed By: #### E RBMP #### [facility] [address] [place] [address] Point of Care testing , LDL Cholesterol,Calculated 87 mg/dL Normal 0-100 [facility] Comment on above: Order Comment: FASTI NG Y Result Comment: LDL ATP III CLASSIFICATION LDL less than 100 mg/dL Optimal LDL 100-129 mg/dL Near or above optimal LDL 130-159 mg/dL Borderline high LDL 160-189 mg/dL High LDL greater than 189 mg/dL Very high Performed By: #### E RBMP #### [facility] [address] [place] [id number] [facility] Point of Care testing , Triglyceride w/Reflex 73 mg/dL Normal 0-149 [facility] Comment on above: Order Comment: FASTI NG Y Result Comment: TRIG ATP III CLASSIFICATION TRIG less than 150 mg/dL Normal TRIG 150-199 mg/dL Borderline high TRIG 200-500 mg/dL High TRIG greater than 500 mg/dL Very high Standard traceable to the Center for Disease Conrtrol and Prevention (CDC) test method. Performed By: #### E RBMP #### [facility] [address] Point of Care testing , VLDL CHOLESTEROL 14 mg/dL Normal [facility] Comment on above: Order Comment: FASTI NG Y Performed By: #### E RBMP #### [facility] [address] [place] [id number] [facility] Point of Care testing , Partial Thromboplastin Timeo n 01-27-2025 aPTT Coag (Bld) [Time] 36.3 s Normal 25.1-36.5 [facility] Comment on above: Result Comment: A he matocrit value greater than 55% may lead to inaccurate results in coagulation testing. Patients having hematocrit values >55% require a special collection tube for coagulation studies. Please contact the laboratory at [phone] for redraw instructions. PERFORMED BY: [address] [place] [address] PATHOLOGIST EXTENSION SPECIALIST ANURADHA GRANADOS M.D. Performed By: #### E RBMP #### [facility] [address] [place] [id number] [facility] Point of Care testing , Protein [Mass/volume] in Ser um or PlasmaOrdered By: Bennett Navarro on 01-27-2025 Protein [Mass/Vol] Protein [Mass/volume ] in Serum or Plasma 6.4-8.9 [place] Prothrombin Time INRon 01-27 INR Coag (PPP) [Relative time] 1.1 {INR} Normal [facility] Comment on above: Result Comment: [...] 4.5 Performed By: #### E RBMP #### [facility] [address] Point of Care testing , PT Coag (PPP) [Time] 12.2 s Normal 9.0-12.9 [facility] Comment on above: Result Comment: A he matocrit value greater than 55% may lead to inaccurate results in coagulation testing. Patients having hematocrit values >55% require a special collection tube for coagulation studies. Please contact the laboratory at [phone] for redraw instructions. Performed By: #### E RBMP #### [facility] [address] [place] [id number] [facility] Point of Care testing , Prothrombin time (PT)Ordered By: Bennett Navarro on 01-27-2025 PT Coag (PPP) [Time] Prothrombin time (PT) 9.0- 12.9 [place] Comment on above: A hematocrit value g reater than 55% may lead to inaccurate results in coagulation testing. Patients having hematocrit values >55% require a special collection tube for coagulation studies. Please contact the laboratory at [phone] for redraw instructions. Serum or plasma albumin/glob ulin mass ratioOrdered By: Bennett Navarro on 01-27-2025 Albumin/Globulin [Mass ratio] Serum or plasma albumin/globulin mass ratio [place] Serum or plasma total choles terol/high density lipoprotein (HDL) cholesterol mass ratOrdered By: Bennett Navarro on 01-27-2025 Cholesterol.total/Cholest sheron in HDL [Mass ratio] Serum or plasma total cholesterol/high density lipoprotein (HDL) cholesterol mass rat <5.0 [place] Triglyceride [Mass/volume] i n Serum or PlasmaOrdered By: Bennett Navarro on 01-27-2025 Triglyceride [Mass/Vol] Triglyceride [Mass/volume] in Serum or Plasma 0-149 [place] Comment on above: TRIG ATP III CLASSIF ICATIONTRIG less than 150 mg/dL NormalTRIG 150-199 mg/dL Borderline highTRIG 200-500 mg/dL High TRIG greater than 500 mg/dL Very highStandard traceable to the Center for Disease Conrtrol and Prevention (CDC) test method. X-ray reportOrdered By: Darell Combs on 01-27-2025 Study report [facility] Main [place] [id number] XRay Report Signed Patient: Bailee Traore MR#: [id number] : 1945 Acct:[id number] Age/Sex: 79 / M ADM Date: 5 Loc: Room: [address] [place] [address] Type: ADM IN Attending Dr: Bennett Navarro [...] Combs Jr., D.OYuni01/27/2025 11:24 AM Dictation Location: [place] [address] Transcribed By: [facility] 01/27/25 1124 Dictated By: Omkar Combs Jr, DO 01/27/25 1123 Signed By: 01/27/25 1124 [place] XR chest 2V*on 01-27-2025 XR chest 2V* [facility] Main [address] [address] XRay Report Signed Patient: Bailee Traore MR#: [id number] : 1945 Acct:[id number] Age/Sex: 79 / M ADM Date: 01/26/25 Loc: Room: [address] [place] [address] Type: ADM IN Attending Dr: Bennett Navarro [...] Combs Jr., D.OYuni01/27/2025 11:24 AM Dictation Location: [place] [address] Transcribed By: [facility] 01/27/25 1124 Dictated By: Omkar Combs Jr, DO 01/27/25 1123 Signed By: 01/27/25 1124 Normal [facility] aPTT in Platelet poor plasma by Coagulation assayOrdered By: Bennett Navarro on 01-27-2025 aPTT Coag (PPP) [Time] Activated partial thromboplastin time (aPTT) in platelet poor plasma by coagulation a 25.1-36.5 [place] Comment on above: A hematocrit value g reater than 55% may lead to inaccurate results in coagulation testing. Patients having hematocrit values >55% require a special collection tube for coagulation studies. Please contact the laboratory at [phone] for redraw instructions. Appearance of UrineOrdered B y: Nikos Lao on 01-26-2025 Appearance (U) Urine appearance Clear [facility] B-Type Natriuretic Peptideon 01-26-2025 Natriuretic peptide B (Bld) [Mass/Vol] 258.0 pg/mL High 5-100 [facility] Comment on above: Result Comment: PERF ORMED BY: [facility] [address] [place] [address] PATHOLOGIST EXTENSION SPECIALIST ANURADHA GRANADOS M.D. Performed By: #### P T, PTT, CBC, TSH3 wRFLX, BMP, CK, T4F, HS TROP #### [address] Basic Metabolic Panelon 03-0 Anion gap [Moles/Vol] 19.0 mmol/L High 6.0-15.0 [facility] Comment on above: Performed By: #### P T, PTT, CBC, TSH3 wRFLX, BMP, CK, T4F, HS TROP #### [facility] [address] Calcium [Mass/Vol] 9.1 mg/dL Normal 8.6-10.3 [facility] Comment on above: Performed By: #### P T, PTT, CBC, TSH3 wRFLX, BMP, CK, T4F, HS TROP #### [address] Chloride [Moles/Vol] 104 mmol/L Normal 98-107 [facility] Comment on above: Performed By: #### P T, PTT, CBC, TSH3 wRFLX, BMP, CK, T4F, HS TROP #### [address] CO2 [Moles/Vol] 19.3 mmol/L Low 21.0-31.0 [facility] Comment on above: Performed By: #### P T, PTT, CBC, TSH3 wRFLX, BMP, CK, T4F, HS TROP #### [address] Creatinine [Mass/Vol] 0.96 mg/dL Normal 0.70-1.30 [facility] Comment on above: Performed By: #### P T, PTT, CBC, TSH3 wRFLX, BMP, CK, T4F, HS TROP #### [address] Creatinine Clr Calc Pharmacy 58.39 Normal [facility] Comment on above: Result Comment: PERF ORMED BY: [place] [address] PATHOLOGIST EXTENSION SPECIALIST ANURADHA GRANADOS M.D. Performed By: #### P T, PTT, CBC, TSH3 wRFLX, BMP, CK, T4F, HS TROP #### [address] GFR/1.73 sq M.predicted MDRD (S/P/Bld) [Vol rate/Area] mL/min/{1.73_m2} Normal [facility] Comment on above: Performed By: #### P T, PTT, CBC, TSH3 wRFLX, BMP, CK, T4F, HS TROP #### [address] Glucose [Mass/Vol] 187 mg/dL High 70-100 [facility] Comment on above: Result Comment: [facility] Glucose Reference Range is dependent on time and content of last meal. Glucose of more than 200 mg/dL in a nonstressed, ambulatory subject supports the diagnosis of Diabetes Mellitus. ADA recommended reference range Performed By: #### P T, PTT, CBC, TSH3 wRFLX, BMP, CK, T4F, HS TROP #### [address] Potassium [Moles/Vol] 3.3 mmol/L Low 3.5-5.1 [facility] Comment on above: Performed By: #### P T, PTT, CBC, TSH3 wRFLX, BMP, CK, T4F, HS TROP #### [place] [address] [place] Sodium [Moles/Vol] 139 mmol/L Normal 136-145 [facility] Comment on above: Performed By: #### P T, PTT, CBC, TSH3 wRFLX, BMP, CK, T4F, HS TROP #### [place] [address] [place] Urea nitrogen [Mass/Vol] 13 mg/dL Normal 7-25 [facility] Comment on above: Performed By: #### P T, PTT, CBC, TSH3 wRFLX, BMP, CK, T4F, HS TROP #### [facility] [address] [place] [address] [place] Basophils Auto (Bld) [#/Vol] Ordered By: Nikos Lao on 01-26-2025 Basophils (Bld) [#/Vol] Automated basophil count 0.0-0.2 [place] Basophils/100 WBC Auto (Bld) Ordered By: Nikos Lao on 01-26-2025 Basophils/100 WBC (Bld) Automated basophil % . [place] Bilirubin Test strip Ql (U)O rdered By: Nikos Lao on 01-26-2025 Bilirubin Ql (U) Bilirubin.total [Presence] in Urine by Test strip Negative [place] BioFire Not Detectedon 01-26 BioFire Not Detected Not detected Normal Not Detecte [facility] Comment on above: Result Comment: This is a duplicate RP2.1 COVID (PCR) result to be used for statistical tracking purpose only. PERFORMED BY: [place] [address] PATHOLOGIST EXTENSION SPECIALIST ANURADHA GRANADOS M.D. Performed By: #### C BC #### [facility] [address] [place] [address] Blood carbon dioxide, total measurement by calculation (moles/volume)Ordered By: Nikos Lao on 01-26-2025 CO2 Calc (Bld) [Moles/Vol] Blood carbon dioxide, total measurement by calculation (moles/volume) [place] COVID-19 Detected/Not Detect edOrdered By: Nikos Lao on 01-26-2025 SARS-CoV-2 (COVID-19) RNA BILLY+non-probe Ql (Nph) Not detected Not Detecte [place] Comment on above: This is a duplicate RP2.1 COVID (PCR) result to be used for statistical tracking purpose only. CT angio headon 01-26-2025 CT angio head [facility] Main [place] [address] [place] [address] CT Scan Report Signed Patient: Bailee Traore MR#: [id number] : 1945 Acct:[id number] Age/Sex: 79 / M ADM Date: 01/26/25 Loc: ER Room: Type: PRE ER Attending Dr: Copies to: Nikos Lao DO Ordering Provider: Nikos Lao DO Date of Service: 01/26/25 CT/CT angio head: weakness L ([id number]) CT/CT angio neck: L weakness ([id number]) CT/CT head stroke alert wo con: acute [...] Combs Jr., Yessy01/26/2025 9:04 AM Dictation Location: [id number] Transcribed By: PWS 01/26/25 0904 Dictated By: Omkar Combs Jr, DO 01/26/25 0856 Signed By: 01/26/25 09 Normal [facility] CT head/brain perfusionon CT head/brain perfusion [facility] [place] [address] CT Scan Report Signed Patient: Bailee Traore MR#: [id number] : 1945 Acct:[id number] Age/Sex: 79 / M ADM Date: 01/26/25 [...] Emmanuel Grijalva M.D.01/26/2025 10:54 AM Dictation Location: [place] [address] Transcribed By: [facility] 01/26/25 1054 Dictated By: Emmanuel Grijalva II, MD 01/26/25 1044 Signed By: 01/26/25 1054 Normal [facility] CT head/brain wo roula 01-26 CT head/brain wo con [facility] [place] [address] CT Scan Report Signed Patient: Bailee Traore MR#: [id number] : 1945 Acct:[id number] Age/Sex: 79 / M ADM Date: 01/26/25 Loc: ER Room: Type: [facility] ER Attending Dr: Copies to: Nikos Lao [...] Combs Jr., D.OYuni01/26/2025 1:01 PM Dictation Location: [facility]--18 Transcribed By: [facility] 01/26/25 1301 Dictated By: Omkar Combs Jr, DO 01/26/25 1255 Signed By: 01/26/25 1301 Normal [facility] Calcium [Mass/volume] in Ser um or PlasmaOrdered By: Nikos Lao on 01-26-2025 Calcium [Mass/Vol] Calcium [Mass/volume ] in Serum or Plasma 8.6-10.3 [place] Carbon dioxide, total [Moles /volume] in Serum or PlasmaOrdered By: Nikos Lao on 01-26-2025 CO2 [Moles/Vol] Carbon dioxide, tota l [Moles/volume] in Serum or Plasma Low 21.0-31.0 [place] Chloride (Bld) [Moles/Vol]Or dered By: Nikos Lao on 01-26-2025 Chloride [Moles/Vol] Whole blood chlorid e measurement 98-109 [place] Chloride [Moles/volume] in S danielle or PlasmaOrdered By: Nikos Lao on 01-26-2025 Chloride [Moles/Vol] Chloride [Moles/vol ume] in Serum or Plasma 98-107 [place] Color Auto (U)Ordered By: Elmo Lao on 01-26-2025 Color (U) Color of Urine by Auto Yellow Fi [facility] Complete Blood Count Auto Di ffon 01-26-2025 Basophils (Bld) [#/Vol] 0.1 10*3/uL Normal 0.0-0.2 [facility] Comment on above: Result Comment: PERF ORMED BY: [place] [address] PATHOLOGIST EXTENSION SPECIALIST ANURADHA GRANADOS M.D. Performed By: #### P T, PTT, CBC, TSH3 wRFLX, BMP, CK, T4F, HS TROP #### [address] Basophils/100 WBC (Bld) 1.4 % Normal . [facility] Comment on above: Performed By: #### P T, PTT, CBC, TSH3 wRFLX, BMP, CK, T4F, HS TROP #### [address] Eosinophils (Bld) [#/Vol] 0.2 10*3/uL Normal 0.0-0.45 [facility] Comment on above: Performed By: #### P T, PTT, CBC, TSH3 wRFLX, BMP, CK, T4F, HS TROP #### [address] Eosinophils/100 WBC (Bld) 3.6 % Normal . [facility] Comment on above: Performed By: #### P T, PTT, CBC, TSH3 wRFLX, BMP, CK, T4F, HS TROP #### [address] Erythrocyte distribution width (RBC) [Ratio] 14.4 % Normal 12.0-14.8 [facility] Comment on above: Performed By: #### P T, PTT, CBC, TSH3 wRFLX, BMP, CK, T4F, HS TROP #### [address] Hematocrit (Bld) [Volume fraction] 42.4 % Normal 38.8-50.0 [facility] Comment on above: Performed By: #### P T, PTT, CBC, TSH3 wRFLX, BMP, CK, T4F, HS TROP #### [address] Hemoglobin (Bld) [Mass/Vol] 14.4 g/dL Normal 13.0-17.0 [facility] Comment on above: Performed By: #### P T, PTT, CBC, TSH3 wRFLX, BMP, CK, T4F, HS TROP #### [address] Lymphocytes (Bld) [#/Vol] 3.2 10*3/uL Normal 1.00-4.8 [facility] Comment on above: Performed By: #### P T, PTT, CBC, TSH3 wRFLX, BMP, CK, T4F, HS TROP #### [address] Lymphocytes/100 WBC (Bld) 46.6 % Normal . [facility] Comment on above: Performed By: #### P T, PTT, CBC, TSH3 wRFLX, BMP, CK, T4F, HS TROP #### [address] MCH (RBC) [Entitic mass] 29.7 pg Normal 27.5-35.2 [facility] Comment on above: Performed By: #### P T, PTT, CBC, TSH3 wRFLX, BMP, CK, T4F, HS TROP #### [address] MCV (RBC) [Entitic vol] 87.2 fL Normal 83.5-101 [facility] Comment on above: Performed By: #### P T, PTT, CBC, TSH3 wRFLX, BMP, CK, T4F, HS TROP #### [address] Mean Corpuscular HGB Conc 34.0 g/dL Normal 32.5-35.6 [facility] Comment on above: Performed By: #### P T, PTT, CBC, TSH3 wRFLX, BMP, CK, T4F, HS TROP #### [place] [address] [place] Monocytes (Bld) [#/Vol] 0.8 10*3/uL Normal 0.0-0.8 [facility] Comment on above: Performed By: #### P T, PTT, CBC, TSH3 wRFLX, BMP, CK, T4F, HS TROP #### [place] [address] [place] Monocytes/100 WBC (Bld) 22.89 % High 0.00-20.00 [facility] Comment on above: Result Comment: For adults in ED, MDW > 20.0 may be associated with a higher risk of sepsis during the first 12 hrs of hospital admission Performed By: #### P T, PTT, CBC, TSH3 wRFLX, BMP, CK, T4F, HS TROP #### [place] [address] [place] Monocytes/100 WBC (Bld) 11.5 % Normal . [facility] Comment on above: Performed By: #### P T, PTT, CBC, TSH3 wRFLX, BMP, CK, T4F, HS TROP #### [place] [address] [place] Neutrophils (Bld) [#/Vol] 2.5 10*3/uL Normal 1.8-7.7 [facility] Comment on above: Performed By: #### P T, PTT, CBC, TSH3 wRFLX, BMP, CK, T4F, HS TROP #### [place] [address] [place] Neutrophils/100 WBC (Bld) 36.9 % Normal . [facility] Comment on above: Performed By: #### P T, PTT, CBC, TSH3 wRFLX, BMP, CK, T4F, HS TROP #### [place] [address] [place] NRBC% 0.2 /100{WBC} Normal 0-0.5 [facility] Comment on above: Performed By: #### P T, PTT, CBC, TSH3 wRFLX, BMP, CK, T4F, HS TROP #### [address] Platelet mean volume (Bld) [Entitic vol] 7.8 fL Normal 6.6-10.1 [facility] Comment on above: Performed By: #### P T, PTT, CBC, TSH3 wRFLX, BMP, CK, T4F, HS TROP #### [facility] [address] Platelets (Bld) [#/Vol] 192 10*3/uL Normal 150-450 [facility] Comment on above: Performed By: #### P T, PTT, CBC, TSH3 wRFLX, BMP, CK, T4F, HS TROP #### [address] RBC (Bld) [#/Vol] 4.86 10*6/uL Normal 3.90-5.60 [facility] Comment on above: Performed By: #### P T, PTT, CBC, TSH3 wRFLX, BMP, CK, T4F, HS TROP #### [address] WBC (Bld) [#/Vol] 6.9 10*3/uL Normal 4.1-10.5 [facility] Comment on above: Performed By: #### P T, PTT, CBC, TSH3 wRFLX, BMP, CK, T4F, HS TROP #### [address] Creatine Kinaseon 01-26-2025 CK [Catalytic activity/Vol] 89 U/L Normal 30-223 [facility] Comment on above: Performed By: #### P T, PTT, CBC, TSH3 wRFLX, BMP, CK, T4F, HS TROP #### [address] Creatine kinase [Enzymatic a ctivity/volume] in Serum or PlasmaOrdered By: Nikos Lao on 01-26-2025 CK [Catalytic activity/Vol] Creatine kinase [Enzymatic activity/volume] in Serum or Plasma [place] Creatinine (Bld) [Mass/Vol]O rdered By: Nikos Lao on 01-26-2025 Creatinine [Mass/Vol] Whole blood creati nine measurement 0.6-1.3 [place] Comment on above: ER/ESD physician is notified/shown all ISTAT results.Critical values may be confirmed by laboratory testing ifdeemed necessary by ER attending doctor. Creatinine [Mass/volume] in Serum or PlasmaOrdered By: Nikos Lao on 01-26-2025 Creatinine [Mass/Vol] Creatinine [Mass/v olume] in Serum or Plasma 0.70-1.30 [place] ECG 12 lead ECGon 01-26-2025 ECG 12 lead ECG [facility] [place] [address] [place] [address] Electrocardiograph Report Signed Patient: Bailee Traore MR#: [id number] : 1945 Acct:[id number] Age/Sex: 79 / M ADM Date: 01/26/25 Loc: Room: [address] [place] [address] Type: ADM IN Attending Dr: Bennett Navarro [...] Lateral leads Confirmed by NIKOS LAO DO ([id number]) on 01/26/2025 3:44:25 PM Referred By: Electronically Signed By: NIKOS LAO DO Transcribed By: MUS Signed By Nikos Lao DO 01/26 1544 Normal [facility] ECG 12 lead ECG [facility] Main [place] [address] [place] [id number] Electrocardiograph Report Signed Patient: Bailee Traore MR#: [id number] : 1945 Acct:[id number] Age/Sex: 79 / M ADM Date: 01/26/25 Loc: Room: [address] [place] [address] Type: ADM IN Attending Dr: Bennett Navarro [...] ECGs available Confirmed by NIKOS LAO DO ([id number]) on 01/26/2025 3:44:25 PM Referred By: Electronically Signed By: NIKOS LAO DO Transcribed By: MUS Signed By Nikos Lao DO 01/26 1544 Normal [facility] Eosinophils Auto (Bld) [#/Vo l]Ordered By: Nikos Lao on 01-26-2025 Eosinophils (Bld) [#/Vol] Automated eosi nophil count 0.0-0.45 [place] Eosinophils/100 WBC Auto (Bl d)Ordered By: Nikos Lao on 01-26-2025 Eosinophils/100 WBC (Bld) Automated eosinophil % . [place] Erythrocyte distribution wid th Auto (RBC) [Ratio]Ordered By: Nikos Lao on 01-26-2025 Erythrocyte distribution width (RBC) [Ratio] Erythrocyte distribution width [Ratio] by Automated count 12.0-14.8 [place] Free T4 (Free Thyroxine)on 0 01-26-2025 Free T4 [Mass/Vol] 1.15 ng/dL High 0.61-1.12 [facility] Comment on above: Performed By: #### P TT, PT #### [facility] [address] [place] [id number] [facility] Glucose Glucometer (BldC) [M ass/Vol]Ordered By: Nikos Lao on 01-26-2025 Glucose [Mass/Vol] Capillary blood gluc ose measurement by glucometer (mass/volume) High 70-105 [place] Glucose [Mass/volume] in Ser um or PlasmaOrdered By: Nikos Lao on 01-26-2025 Glucose [Mass/Vol] Glucose [Mass/volume ] in Serum or Plasma High 70-100 [place] Comment on above: ADA recommended refe rence rangeRandom Glucose Reference Range is dependent on time and content of last meal. Glucose of more than 200 mg/dL in a nonstressed, ambulatory subject supports the diagnosis of Diabetes Mellitus. Glucose [Mass/volume] in Uri ne by Test stripOrdered By: Nikos Lao on 01-26-2025 Glucose Test strip (U) [Mass/Vol] Glucose [Mass/volume] in Urine by Test strip Normal [place] Hematocrit Auto (Bld) [Volum e fraction]Ordered By: Nikos Lao on 01-26-2025 Hematocrit (Bld) [Volume fraction] Hematocrit [Volume Fraction] of Blood by Automated count 38.8-50.0 [place] Hemoglobin Calc (Bld) [Mass/ Vol]Ordered By: Nikos Lao on 01-26-2025 Hemoglobin (Bld) [Mass/Vol] Blood hemoglobin measurement by calculation (mass/volume) 12.0-17.0 [place] Hemoglobin Test strip Ql (U) Ordered By: Nikos Lao on 01-26-2025 Hemoglobin Ql (U) Hemoglobin [Presence ] in Urine by Test strip Negative [place] Hemoglobin [Mass/volume] in BloodOrdered By: Nikos Lao on 01-26-2025 Hemoglobin (Bld) [Mass/Vol] Hemoglobin [Mass/volume] in Blood 13.0-17.0 [place] INR in Platelet poor plasma by Coagulation assayOrdered By: Nikos Lao on 01-26-2025 INR Coag (PPP) [Relative time] INR in Platelet poor plasma by Coagulation assay [place] Comment on above: INR Therapeutic Rang e [...] Chloride [Moles/Vol] 105.0 mmol/L Normal 98-109 [facility] Comment on above: Performed By: #### E RBMP #### [facility] [address] [place] [address] Point of Care testing , CO2 [Moles/Vol] 23 mmol/L Normal 23-29 [facility] Comment on above: Performed By: #### E RBMP #### [address] Point of Care testing , Creatinine [Mass/Vol] 0.9 mg/dL Normal 0.6-1.3 [facility] Comment on above: Result Comment: ER/E SD physician is notified/shown all ISTAT results. Critical values may be confirmed by laboratory testing if deemed necessary by ER attending doctor. Performed By: #### E RBMP #### [address] Point of Care testing , Glucose [Mass/Vol] 192 mg/dL High 70-105 [facility] Comment on above: Result Comment: PERF ORMED BY: [place] [address] PATHOLOGIST EXTENSION SPECIALIST ANURADHA GRANADOS M.D. Performed By: #### E RBMP #### [address] Point of Care testing , Hemoglobin (Bld) [Mass/Vol] 16.0 g/dL Normal 12.0-17.0 [facility] Comment on above: Performed By: #### E RBMP #### [address] Point of Care testing , ISTAT Ionized Calcium 1.12 mol/L Normal 1.12-1.32 [facility] Comment on above: Performed By: #### E RBMP #### [facility] [address] Point of Care testing , Potassium [Moles/Vol] 3.3 mmol/L Low 3.5-4.9 [facility] Comment on above: Performed By: #### E RBMP #### [facility] [address] Point of Care testing , Sodium [Moles/Vol] 142 mmol/L Normal 138-146 [facility] Comment on above: Performed By: #### E RBMP #### [facility] [address] Point of Care testing , Urea nitrogen [Mass/Vol] 14 mg/dL Normal 8-26 [facility] Comment on above: Performed By: #### E RBMP #### [facility] [address] Point of Care testing , ISTAT ER Chem8+ PanelOrdered By: Nikos Lao on 01-26-2025 Hematocrit (Bld) [Volume fraction] 47.0 % Normal 38.0-51.0 [place] Comment on above: Performed By: #### E RBMP #### [facility] [address] [place] [address] Point of Care testing , Ketones Test strip Ql (U)Ord ered By: Nikos Lao on 01-26-2025 Ketones Ql (U) Ketones [Presence] i n Urine by Test strip Negative [place] Leukocyte esterase [Presence ] in Urine by Test stripOrdered By: Nikos Lao on 01-26-2025 Leukocyte esterase Test strip Ql (U) Leukocyte esterase [Presence] in Urine by Test strip Negative [place] Leukocytes [#/volume] correc dexter for nucleated erythrocytes in Blood by Automated counOrdered By: Nikos Lao on 01-26-2025 WBC corrected for nucl RBC Auto (Bld) [#/Vol] Leukocytes [#/volume] corrected for nucleated erythrocytes in Blood by Automated coun 4.1-10.5 [place] Lymphocytes Auto (Bld) [#/Vo l]Ordered By: Nikos Lao on 01-26-2025 Lymphocytes (Bld) [#/Vol] Lymphocytes [# /volume] in Blood by Automated count 1.00-4.8 [place] Lymphocytes/100 WBC Auto (Bl d)Ordered By: Nikos Lao on 01-26-2025 Lymphocytes/100 WBC (Bld) Lymphocytes/10 0 leukocytes in Blood by Automated count . [place] MCH Auto (RBC) [Entitic mass ]Ordered By: Nikos Loa on 01-26-2025 MCH (RBC) [Entitic mass] MCH [Entitic ma ss] by Automated count 27.5-35.2 [place] MCHC Auto (RBC) [Mass/Vol]Or dered By: Nikos Lao on 01-26-2025 MCHC (RBC) [Mass/Vol] MCHC [Mass/volume] by Automated count 32.5-35.6 [place] MCV Auto (RBC) [Entitic vol] Ordered By: Nikos Lao on 01-26-2025 MCV (RBC) [Entitic vol] MCV [Entitic vol ume] by Automated count 83.5-101 [place] Monocyte distribution width [Entitic volume] in Blood by AutomatedOrdered By: Nikos Lao on 01-26-2025 Monocyte distribution width Auto (Bld) [Entitic vol] Monocyte distribution width [Entitic volume] in Blood by Automated High 0.00-20.00 [place] Comment on above: For adults in ED, MD W > 20.0 may be associated with a higher risk of sepsis during the first 12 hrs of hospital admission Monocytes Auto (Bld) [#/Vol] Ordered By: Nikos Lao on 01-26-2025 Monocytes (Bld) [#/Vol] Automated blood monocyte count 0.0-0.8 [place] Monocytes/100 WBC Auto (Bld) Ordered By: Nikos Lao on 01-26-2025 Monocytes/100 WBC (Bld) Automated monocyte % . [place] Natriuretic peptide B [Mass/ Vol]Ordered By: Nikos Lao on 01-26-2025 Natriuretic peptide B (Bld) [Mass/Vol] BNP ser/plas High 5-100 [place] Neutrophils Auto (Bld) [#/Vo l]Ordered By: Nikos Lao on 01-26-2025 Neutrophils (Bld) [#/Vol] Neutrophils [# /volume] in Blood by Automated count 1.8-7.7 [place] Neutrophils/100 WBC Auto (Bl d)Ordered By: Nikos Lao on 01-26-2025 Neutrophils/100 WBC (Bld) Automated neutrophil % . [place] Nitrite Test strip Ql (U)Ord ered By: Nikos Lao on 01-26-2025 Nitrite Ql (U) Nitrite [Presence] i n Urine by Test strip Negative [place] No Panel InformationOrdered By: Nikos Lao on 01-26-2025 Estimated GFR (CKD-EPI) > 60.0 mL/Min [place] [facility] Creatinine Clearance (Chem 58.39 [place] Nucleated erythrocytes [Pres ence] in Blood by Automated countOrdered By: Nikos Lao on 01-26-2025 Nucleated RBC Auto Ql (Bld) Nucleated erythrocytes [Presence] in Blood by Automated count 0-0.5 [place] Partial Thromboplastin Timeo n 01-26-2025 aPTT Coag (Bld) [Time] 30.8 s Normal 25.1-36.5 [facility] Comment on above: Result Comment: A he matocrit value greater than 55% may lead to inaccurate results in coagulation testing. Patients having hematocrit values >55% require a special collection tube for coagulation studies. Please contact the laboratory at [phone] for redraw instructions. PERFORMED BY: [facility] [address] [place] [id number] PATHOLOGIST EXTENSION SPECIALIST ANURADHA GRANADOS M.D. Performed By: #### P T, PTT, CBC, TSH3 wRFLX, BMP, CK, T4F, HS TROP #### [facility] [address] [place] [id number] [facility] Platelet mean volume Auto (B ld) [Entitic vol]Ordered By: Nikos Lao on 01-26-2025 Platelet mean volume (Bld) [Entitic vol] Platelet mean volume [Entitic volume] in Blood by Automated count 6.6-10.1 [place] Platelets Auto (Bld) [#/Vol] Ordered By: Nikos Lao on 01-26-2025 Platelets (Bld) [#/Vol] Platelets [#/vol ume] in Blood by Automated count 150-450 [place] Potassium (Bld) [Moles/Vol]O rdered By: Nikos Lao on 01-26-2025 Potassium [Moles/Vol] Whole blood potass ium measurement Low 3.5-4.9 [place] Potassium [Moles/volume] in Serum or PlasmaOrdered By: Nikos Lao on 01-26-2025 Potassium [Moles/Vol] Potassium [Moles/v olume] in Serum or Plasma Low 3.5-5.1 [place] Protein Test strip (U) [Mass /Vol]Ordered By: Nikos Lao on 01-26-2025 Protein (U) [Mass/Vol] Protein [Mass/vol ume] in Urine by Test strip Negative [place] Prothrombin Time INRon 01-26 INR Coag (PPP) [Relative time] 1.1 {INR} Normal [facility] Comment on above: Result Comment: [...] wRFLX, BMP, CK, T4F, HS TROP #### [facility] [address] [place] [id number] [facility] PT Coag (PPP) [Time] 12.2 s Normal 9.0-12.9 [facility] Comment on above: Result Comment: A he matocrit value greater than 55% may lead to inaccurate results in coagulation testing. Patients having hematocrit values >55% require a special collection tube for coagulation studies. Please contact the laboratory at [phone] for redraw instructions. Performed By: #### P T, PTT, CBC, TSH3 wRFLX, BMP, CK, T4F, HS TROP #### [facility] [address] [place] [id number] [facility] Prothrombin time (PT)Ordered By: Nikos Lao on 01-26-2025 PT Coag (PPP) [Time] Prothrombin time (PT) 9.0- 12.9 [place] Comment on above: A hematocrit value g reater than 55% may lead to inaccurate results in coagulation testing. Patients having hematocrit values >55% require a special collection tube for coagulation studies. Please contact the laboratory at [phone] for redraw instructions. RBC Auto (Bld) [#/Vol]Ordere d By: Nikos Lao on 01-26-2025 RBC (Bld) [#/Vol] Erythrocytes [#/volu me] in Blood by Automated count 3.90-5.60 [place] Respiratory (Upper) Panel, P CRon 01-26-2025 Respiratory [...] A H3 Blank Space ---- PERFORMED BY: [facility] [place] [address] PATHOLOGIST EXTENSION SPECIALIST ANURADHA GRANADOS M.D. Normal [facility] Comment on above: Performed By: #### C BC #### [address] Respiratory pathogens DNA an d RNA panel - Nasopharynx by BILLY with non-probe detectionOrdered By: Nikos Lao on 01-26-2025 Respiratory pathogens DNA and RNA panel BILLY+non-probe (Nph) Respiratory pathogens DNA and RNA panel - Nasopharynx by BILLY with non-probe detection [place] Respiratory pathogens DNA and RNA panel BILLY+non-probe (Nph) Respiratory pathogens DNA and RNA panel - Nasopharynx by BILLY with non-probe detection [place] Serum or plasma anion gap de terminationOrdered By: Nikos Lao on 01-26-2025 Anion gap [Moles/Vol] Serum or plasma an ion gap determination High 6.0-15.0 [place] Sodium (Bld) [Moles/Vol]Orde red By: Nikos Lao on 01-26-2025 Sodium [Moles/Vol] Whole blood sodium measurement 138-146 [place] Sodium [Moles/volume] in Ser um or PlasmaOrdered By: Nikos Lao on 01-26-2025 Sodium [Moles/Vol] Sodium [Moles/volume ] in Serum or Plasma 136-145 [place] Specific gravity Test strip (U) [Rel density]Ordered By: Nikos Lao on 01-26-2025 Specific gravity (U) [Rel density] Specific gravity of Urine by Test strip High 1.001-1.03 0 [place] Thyroid Stim Hormone w/Rflxo n 01-26-2025 Thyroid Stim Hormone w/Rflx 5.84 u[iU]/mL High 0.45-5.33 [facility] Comment on above: Result Comment: PERF ORMED BY: [address] [id number] PATHOLOGIST EXTENSION SPECIALIST ANURADHA GRANADOS M.D. Performed By: #### P TT, PT #### [place] [id number] [facility] Thyrotropin [Units/volume] i n Serum or PlasmaOrdered By: Nikos Lao on 01-26-2025 TSH Qn Thyrotropin [Units/volume] in Serum or Plasma High 0.45-5.33 [place] Thyroxine (T4) free [Mass/vo lume] in Serum or PlasmaOrdered By: Nikos Lao on 01-26-2025 Free T4 [Mass/Vol] Thyroxine (T4) free [Mass/volume] in Serum or Plasma High 0.61-1.12 [place] Troponin I High Sensitivityo n 01-26-2025 Troponin I High Sensitivity 36 High 0-20 [facility] Comment on above: Result Comment: The Troponin units of report have been changed to meet the Chest Pain Accreditation requirement, element EC5.M1l2. Troponin units are changed from pg/ml to ng/L. Also, the decimal is removed and results are in whole numbers. PERFORMED BY: [place] [address] PATHOLOGIST EXTENSION SPECIALIST ANURADHA GRANADOS M.D. Performed By: #### P TT, PT #### [address] Troponin I.cardiac [Mass/vol ume] in Serum or Plasma by Detection limit <= 0.01 ng/Ordered By: Nikos Lao on 01-26-2025 Troponin I.cardiac DL <= 0.01 ng/mL [Mass/Vol] Troponin I.cardiac [Mass/volume] in Serum or Plasma by Detection limit <= 0.01 ng/ High 0-20 [place] Comment on above: The Troponin units o f report have been changed to meet the Chest Pain Accreditation requirement, element EC5.M1l2. Troponin units are changed from pg/ml to ng/L. Also, the decimal is removed and results are in whole numbers. Urea nitrogen (Bld) [Mass/Vo l]Ordered By: Nikos Lao on 01-26-2025 Urea nitrogen [Mass/Vol] Blood urea nitr ogen (BUN) measurement in whole blood (mass/volume) 8-26 [place] Urea nitrogen [Mass/volume] in Serum or PlasmaOrdered By: Nikos Lao on 01-26-2025 Urea nitrogen [Mass/Vol] Urea nitrogen [Mass/volume] in Serum or Plasma 06-21 [place] Urinalysison 01-26-2025 Appearance (U) Clear Normal Clear [facility] Comment on above: Order Comment: Name Collection Type:: Clean-Voided Midstream Performed By: #### P T, PTT, CBC, TSH3 wRFLX, BMP, CK, T4F, HS TROP #### [facility] [address] [place] [address] Bilirubin,Urine Negative Normal Negative [facility] Comment on above: Order Comment: Name Collection Type:: Clean-Voided Midstream Performed By: #### P T, PTT, CBC, TSH3 wRFLX, BMP, CK, T4F, HS TROP #### [address] Color (U) Light-Yellow Normal Yellow [facility] Comment on above: Order Comment: Name Collection Type:: Clean-Voided Midstream Performed By: #### P T, PTT, CBC, TSH3 wRFLX, BMP, CK, T4F, HS TROP #### [address] Glucose Ql (U) Normal Normal Normal [facility] Comment on above: Order Comment: Name Collection Type:: Clean-Voided Midstream Performed By: #### P T, PTT, CBC, TSH3 wRFLX, BMP, CK, T4F, HS TROP #### [address] Ketones Ql (U) Negative Normal Negative [facility] Comment on above: Order Comment: Name Collection Type:: Clean-Voided Midstream Performed By: #### P T, PTT, CBC, TSH3 wRFLX, BMP, CK, T4F, HS TROP #### [address] Leukocyte esterase Test strip Ql (U) Negative Normal Negative [facility] Comment on above: Order Comment: Name Collection Type:: Clean-Voided Midstream Performed By: #### P T, PTT, CBC, TSH3 wRFLX, BMP, CK, T4F, HS TROP #### [place] [address] [place] Nitrite,Urine Negative Normal Negative [facility] Comment on above: Order Comment: Name Collection Type:: Clean-Voided Midstream Performed By: #### P T, PTT, CBC, TSH3 wRFLX, BMP, CK, T4F, HS TROP #### [address] Occult Blood,Urine Negative Normal Negative [facility] Comment on above: Order Comment: Name Collection Type:: Clean-Voided Midstream Result Comment: PERF ORMED BY: [place] [address] PATHOLOGIST EXTENSION SPECIALIST ANURADHA GRANADOS M.D. Performed By: #### P T, PTT, CBC, TSH3 wRFLX, BMP, CK, T4F, HS TROP #### [address] pH (U) 6.5 [pH] Normal 5.0-9.0 [facility] Comment on above: Order Comment: Name Collection Type:: Clean-Voided Midstream Performed By: #### P T, PTT, CBC, TSH3 wRFLX, BMP, CK, T4F, HS TROP #### [place] [address] [place] Protein,Urine Negative Normal Negative [facility] Comment on above: Order Comment: Name Collection Type:: Clean-Voided Midstream Performed By: #### P T, PTT, CBC, TSH3 wRFLX, BMP, CK, T4F, HS TROP #### [place] [address] [place] Specificy [place],Urine 1.039 High 1.00 1-1.03 0 [facility] Comment on above: Order Comment: Name Collection Type:: Clean-Voided Midstream Performed By: #### P T, PTT, CBC, TSH3 wRFLX, BMP, CK, T4F, HS TROP #### [place] [address] [place] Urobilinogen,Urine Normal Normal Normal [facility] Comment on above: Order Comment: Name Collection Type:: Clean-Voided Midstream Performed By: #### P T, PTT, CBC, TSH3 wRFLX, BMP, CK, T4F, HS TROP #### [address] Urobilinogen Test strip (U) [Mass/Vol]Ordered By: Nikos Lao on 01-26-2025 Urobilinogen (U) [Mass/Vol] Urobilinogen [Mass/volume] in Urine by Test strip Normal [place] WBC Auto (Bld) [#/Vol]Ordere d By: Nikos Lao on 01-26-2025 WBC (Bld) [#/Vol] Leukocytes [#/volume ] in Blood by Automated count 4.1-10.5 [place] Whole blood ionized calcium measurement (moles/volume)Ordered By: Nikos Lao on 01-26-2025 Calcium.ionized (Bld) [Moles/Vol] Whole blood ionized calcium measurement (moles/volume) 1.12-1.32 [place] X-ray reportOrdered By: Darell Combs on 01-26-2025 Study report [facility] Main [place] [address] [place] [address] XRay Report Signed Patient: Bailee Traore MR#: [id number] : 1945 Acct:[id number] Age/Sex: 79 / M ADM Date: 5 [...] Combs Jr, DO 01/26/25829 Signed By: 01/26/25829 [place] Study report [address] [address] XRay Report Signed Patient: Bailee Traore MR#: [id number] : 1945 Acct:[id number] Age/Sex: 79 / M ADM Date: 5 [...] Jr, DO 01/26/25829 Signed By: 01/26/25 0830 [place] XR chest 1V portableon 01-26 XR chest 1V portable [facility] Main [address] [address] XRay Report Signed Patient: Bailee Traore MR#: [id number] : 1945 Acct:[id number] Age/Sex: 79 / M ADM Date: 01/26/25 [...] Combs Jr., D.O.01/26/2025 8:30 AM Dictation Location: [facility] Transcribed By: [facility] 01/26/25829 Dictated By: Omkar Combs Jr, DO 01/26/25829 Signed By: 01/26/25829 Normal [facility] aPTT in Platelet poor plasma by Coagulation assayOrdered By: Nikos Lao on 01-26-2025 aPTT Coag (PPP) [Time] Activated partial thromboplastin time (aPTT) in platelet poor plasma by coagulation a 25.1-36.5 [place] Comment on above: A hematocrit value g reater than 55% may lead to inaccurate results in coagulation testing. Patients having hematocrit values >55% require a special collection tube for coagulation studies. Please contact the laboratory at [phone] for redraw instructions. pH Test strip (U)Ordered By: Nikos Lao on 01-26-2025 pH (U) pH of Urine by Test strip 5.0-9.0 [place] Vital Signs Date Time Vital Sign Value Performing Clinician Ana carpenter 08-06-2025 10:13040 Body height 182.88 cm Puma Novak DO Work Phone: [place] 08-06-2025 10:13040 Body mass index (BMI) [Ratio] 28 kg/m2 Puma Novak DO Work Phone: [place] 08-06-2025 10:13040 Body weight 93.89 kg Puma Novak DO Work Phone: [place] 08-06-2025 10:13040 Diastolic blood pressure 72 mm[Hg] Puma Novak DO Work Phone: [place] 08-06-2025 10:13-0400 Heart rate 75 /min Puma Novak DO Work Phone: [place] 08-06-2025 10:13-0400 Respiratory rate 16 /min Puma Novak DO Work Phone: [place] 08-06-2025 10:13-0400 SaO2% (BldA) [Mass fraction] 90 % Puma Novak DO Work Phone: [place] 08-06-2025 10:13-0400 Systolic blood pressure 128 mm[Hg] Puma Novak DO Work Phone: [place] 04-17-2025 13:23-0400 Diastolic blood pressure 53 mm[Hg] Lucille Engel (Clinic) DO Work Phone: [place] 04-17-2025 13:23-0400 Systolic blood pressure 88 mm[Hg] Lucille Engel (Clinic) DO Work Phone: [place] 04-17-2025 13:22-0400 Body height 182.88 cm Lucille Engel (Clinic) DO Work Phone: [place] 04-17-2025 13:22-0400 Body mass index (BMI) [Ratio] 26.7 kg/m2 Lucille Engel (Clinic) DO Work Phone: [place] 04-17-2025 13:22-0400 Body weight 89.35 kg Lucille Engel (Clinic) DO Work Phone: [place] 04-17-2025 13:22-0400 Heart rate 68 /min Lucille Engel (Clinic) DO Work Phone: [place] 04-17-2025 13:22-0400 Respiratory rate 16 /min Lucille Engel (Clinic) DO Work Phone: [place] 04-17-2025 13:22-0400 SaO2% (BldA) [Mass fraction] 94 % Lucille Engel ([facility]) DO Work Phone: [place] 03-15-2025 06:45-0400 Body height 182.88 cm Lucille Engel ([facility]) DO Work Phone: [place] 03-15-2025 06:45-0400 Body weight 88.45 kg Lucille Engel ([facility]) DO Work Phone: [place] 02-15-2025 14:00-0400 Body temperature 97.8 [degF] Lucille Engel ([facility]) DO Work Phone: [place] 02-15-2025 14:00-0400 Diastolic blood pressure 78 mm[Hg] Lucille Engel ([facility]) DO Work Phone: [place] 02-15-2025 14:00-0400 Heart rate 70 /min Lucille Engel ([facility]) DO Work Phone: [place] 02-15-2025 14:00-0400 Respiratory rate 16 /min Lucille Engel ([facility]) DO Work Phone: [place] 02-15-2025 14:00-0400 SaO2% (BldA) [Mass fraction] 93 % Lucille Engel ([facility]) DO Work Phone: [place] 02-15-2025 14:00-0400 Systolic blood pressure 138 mm[Hg] Lucille Engel ([facility]) DO Work Phone: [place] 02-14-2025 07:41-0400 Body height 182.88 cm Lucille Engel ([facility]) DO Work Phone: [place] 02-10-2025 06:00-0400 Body weight 87.4 kg Lucille Engel ([facility]) DO Work Phone: [place] 01-30-2025 19:55-0500 Body temperature 98.1 [degF] Lucille Engel ([facility]) DO Work Phone: [place] 01-30-2025 19:55-0500 Diastolic blood pressure 75 mm[Hg] Lucille Engel (Clinic) DO Work Phone: [place] 01-30-2025 19:55-0500 Heart rate 75 /min Lucille Engel (Clinic) DO Work Phone: [place] 01-30-2025 19:55-0500 Respiratory rate 14 /min Lucille Engel (Clinic) DO Work Phone: [place] 01-30-2025 19:55-0500 SaO2% (BldA) [Mass fraction] 92 % Lucille Engel (Clinic) DO Work Phone: [place] 01-30-2025 19:55-0500 Systolic blood pressure 160 mm[Hg] Lucille Engel (Clinic) DO Work Phone: [place] 01-30-2025 04:48-0500 Body weight 78.8 kg Lucille Engel (Clinic) DO Work Phone: [place] 01-29-2025 08:38-0500 Inhaled oxygen flow rate 2 L/min Lucille Engel (Clinic) DO Work Phone: [place] 01-27-2025 12:45-0500 Body height 172.72 cm Lucille Engel (Clinic) DO Work Phone: [place] 01-26-2025 14:35-0500 Inhaled oxygen flow rate 4 L/min Lucille Engel (Clinic) DO Work Phone: [place] 01-26-2025 14:33-0500 Diastolic blood pressure 69 mm[Hg] Lucille Engel (Clinic) DO Work Phone: [place] 01-26-2025 14:33-0500 Heart rate 92 /min Lucille Engel (Clinic) DO Work Phone: [place] 01-26-2025 14:33-0500 Respiratory rate 21 /min Lucille Engel ([facility]) DO Work Phone: [place] 01-26-2025 14:33-0500 SaO2% (BldA) [Mass fraction] 97 % Lucille Engel ([facility]) DO Work Phone: [place] 01-26-2025 14:33-0500 Systolic blood pressure 155 mm[Hg] Lucille Engel ([facility]) DO Work Phone: [place] 01-26-2025 07:35-0500 Body temperature 97.7 [degF] Lucille Engel ([facility]) DO Work Phone: [place] 01-26-2025 07:25-0500 Body height 172.72 cm Lucille Engel ([facility]) DO Work Phone: [place] 01-26-2025 07:25-0500 Body weight 81 kg Lucille Engel ([facility]) DO Work Phone: [place] 08-29-2021 17:43-0400 Body height 179.07 cm PA-C Ranjeet Jarvis Work Phone: [facility] 08-29-2021 17:43-0400 Body mass index (BMI) [Ratio] 28 kg/m2 PA-C Ranjeet Jarvis Work Phone: [facility] 08-29-2021 17:43-0400 Body temperature 97.5 [degF] PA-C Ranjeet Jarvis Work Phone: [facility] 08-29-2021 17:43-0400 Body weight 90 kg PA-C Ranjeet Jarvis Work Phone: [facility] 08-29-2021 17:43-0400 Diastolic blood pressure 82 mm[Hg] PA-C Ranjeet Jarvis Work Phone: [facility] 08-29-2021 17:43-0400 Heart rate 78 /min PA-C Ranjeet Jarvis Work Phone: [facility] 08-29-2021 17:43-0400 Respiratory rate 21 /min ANAMARIA Jarvis Work Phone: [facility] 08-29-2021 17:43-0400 SaO2% (BldA) [Mass fraction] 98 % ANAMARIA Jarvis Work Phone: [facility] 08-29-2021 17:43-0400 Systolic blood pressure 160 mm[Hg] ANAMARIA Jarvis Work Phone: [facility] Encounters Encounter Date Encounter Type Care Provider Facility Start: 04-24-2026 ambulatory JOVANNI Valdiviai ty:[facility] Start: 08-06-2025 End: 08-06-2025 ambulatory Puma Novak DO Work Phone: [facility] Work Phone: Start: 08-06-2025 End: 08-06-2025 Patient encounter procedure Shona Henriquez MANAGER ADMINISTRATION-DIRECTOR OF ONLINE EDUCATION-C -[facility] Work Phone: Start: 04-18-2025 End: 04-18-2025 ambulatory JOVANNI ROGERS Facility:[facility] Start: 04-17-2025 End: 04-17-2025 ambulatory Lucille Engel (Clinic) DO Work Phone: [facility] Work Phone: Start: 04-17-2025 End: 04-17-2025 Patient encounter procedure Lucille Engel (Clinic) DO Work Phone: [facility] Work Phone: Start: 03-19-2025 End: 03-19-2025 ambulatory JOVANNI ROGERS Facility:[facility] Start: 03-15-2025 End: 03-15-2025 Patient encounter procedure Lucille Engel (Clinic) DO Work Phone: [facility] [place] Work Phone: Start: 03-15-2025 End: 03-15-2025 ambulatory Lucille Maren (Clinic) DO Work Phone: [facility] Work Phone: Start: 03-01-2025 End: 03-01-2025 ambulatory Lucille Engel (Clinic) DO Work Phone: [facility] Work Phone: Start: 03-01-2025 End: 03-01-2025 Departed Referred Lucille Maren (Clinic) DO Work Phone: [facility] Start: 02-19-2025 ambulatory JOVANNI ROGERS Facility :[facility] Start: 02-14-2025 Non-patient / Non-visit Lucille Engel (Clinic) DO Work Phone: [facility] Work Phone: Start: 02-07-2025 Non-patient / Non-visit Lucille Maren (Clinic) DO Work Phone: [facility] Work Phone: Start: 01-31-2025 Non-patient / Non-visit Lucille Maren (Clinic) DO Work Phone: [facility] Work Phone: Start: 01-30-2025 End: 02-15-2025 Evaluation and management of inpatient Lucille Maren (Clinic) DO Work Phone: [facility] Work Phone: Start: 01-28-2025 Non-patient / Non-visit Lucille Engel (Clinic) DO Work Phone: [facility] Work Phone: Start: 01-26-2025 End: 01-30-2025 Evaluation and management of inpatient Lucille Engel (Clinic) DO Work Phone: [facility] Work Phone: Start: 08-29-2021 End: 08-29-2021 Emergency department patient visit ANAMARIA Jarvis Work Phone: [facility]-Emergency Room Procedures Date Procedure Procedure Detail Performing Clinician Start: 03-15-2025 MRI of head Lucille lara ([facility]) DO Work Phone: Start: 03-01-2025 Urine culture Lucille jennings ([facility]) DO Work Phone: Start: 02-03-2025 Aerobic microbial culture Lucille Engel ([facility]) DO Work Phone: Start: 02-03-2025 Anaerobic microbial culture Lucille Engel ([facility]) DO Work Phone: Start: 02-03-2025 CSF (PCR) Lucille lara ([facility]) DO Work Phone: Start: 02-03-2025 Determination of thu wth of fungi Lucille Engel ([facility]) DO Work Phone: Start: 02-03-2025 Gram stain microscopy Isabel Engel ([facility]) DO Work Phone: Start: 01-29-2025 Computed tomography of abdomen and pelvis with contrast Lucille Engel ([facility]) DO Work Phone: Start: 01-29-2025 CT of thorax with contrast Lucille Engel ([facility]) DO Work Phone: Start: 01-28-2025 MRI of head Lucille lara ([facility]) DO Work Phone: Start: 01-27-2025 Plain chest X-ray Lucille Engel ([facility]) DO Work Phone: Start: 01-26-2025 Respiratory Panel (PCR) Lucille Engel ([facility]) DO Work Phone: Start: 01-26-2025 CT of head without contrast Lucille Engel ([facility]) DO Work Phone: Start: 01-26-2025 CT of brain perfusion Isabel Engel ([facility]) DO Work Phone: Start: 01-26-2025 CT angiography of head Lucille Engel ([facility]) DO Work Phone: Start: 01-26-2025 CT angiography of ne ck vessels Lucille Engel ([facility]) DO Work Phone: Start: 01-26-2025 CT of head without contrast Lucille Engel ([facility]) DO Work Phone: Start: 01-26-2025 Plain chest X-ray Lucille Engel ([facility]) DO Work Phone: History of placement of stent for coronary artery disease S/P coronary artery stent placement Lucille Engel ([facility]) DO Work Phone: Plan of Treatment Date Care Activity Detail Author Start: 03-01-2025 Urine culture [place] Start: 03-01-2025 Bacteria identified in Urine by Culture Urine Culture [place] Start: 02-13-2025 [place] Start: 01-31-2025 [place] Start: 01-31-2025 Administration of prophylactic treatment [place] Start: 01-31-2025 Referral to neurologist [facility] Start: 01-30-2025 Hospital admission [place] Start: 01-30-2025 Referral to clinical sweet dough mixer [place] Start: 01-30-2025 [place] Start: 01-30-2025 Drainage of Spinal Canal, Percutaneous Approach, Diagnostic Drainage of Spinal Canal, Percutaneous Approach, Diagnostic [place] Start: 01-30-2025 [place] Start: 01-28-2025 Referral to rehabilitation physician [place] Start: 01-27-2025 Administration of prophylactic treatment [place] Start: 01-27-2025 [place] Start: 01-26-2025 Referral to neurologist [facility] Start: 01-26-2025 Hospital admission [place] Start: 01-26-2025 Telemedicine consultation with patient [place] Comprehensive metabo lic 2000 panel - Serum or Plasma [place] MR Unspecified body region F [facility] Patient Education Insect Bite or Sting (ED) [facility] Patient referral [facility] Payers Date Payer Category Payer Unknown [id number] 2025 Medicaid [id number] 2025 Medicare [id number] [id number] Self-pay [id number] 2024 Medicare [id number] 1945 Unknown [id number] 2.16.8 [id number] 1945 Unknown [id number] 2.16.8 [id number] 1945 Unknown [id number] 2.16.8 [id number] Private Health Insurance 911 [id number] Unknown [id number] 2.16.8 [id number] Unknown [id number] 2.16.8 [id number] Unknown [id number] 2.16.8 [id number] Unknown [id number] 2.16.8 [id number] Unknown [id number] 2.16.8 [id number] Social History Date Type Detail Facility Start: 08-29-2021 End: 01-31-2025 Tobacco smoking status NHIS Ex-smoker (finding) [place] Start: 1945 Sex Assigned At Male F [facility] Start: 01-26-2025 End: 04-18-2025 Sex Male (finding) [place] Start: 02-13-2025 SDOH Follow up SDOH Follow up [facility] Work Phone: Goals Date Patient Goal Desired Activity /State Functional Status Date Assessment Result Facility 02-15-2025 Functional status Patient Not at Baseline [facility] Work Phone: 01-26-2025 Functional status Patient Not at Baseline [facility] Work Phone: Mental Status Date Assessment Result Facility 02-15-2025 Cognitive function Cognitive Sta tus Patient Not at Baseline [facility] Work Phone: 01-26-2025 Cognitive function Cognitive Sta tus Patient Not at Baseline [facility] Work Phone: Clinical Notes 01-26-2025 to 04-18-2025 [...] these instructions at home: Medicines ??? Take sqfk-hob-ctlrldp and prescription medicines only as told by [...] provider. Document Revised: 08/05/2021 Document Reviewed: 08/05/2021 [employer] Patient Education ? 2023 [employer]. [facility] 03-19-2025 Note Patient Education Urology Acute Urinary [...] these instructions at home: Medicines ??? Take sqjs-iag-ksgrjfb and prescription medicines only as told by [...] provider. Document Revised: 08/05/2021 Document Reviewed: 08/05/2021 [employer] Patient Education ? 2023 [employer]. [facility] 02-15-2025 Progress note Note Date/Time February 15, 2025 7:54am [facility] [address] [address] Hospitalist Progress Note Signed Patient: Bailee Traore MR#: [id number] : 1945 Acct:[id number] Age/Sex: 79 / M Adm Date: 5 Loc: Room: 4C3915-0 Type: ADM IN Attending Dr: Omkar Louie [...] 11:02/14/25 11:02/14/25 11:25 11:09 02/14/25 11:09 Narrative: JRITB-gzote-isjarllgp, elderly, cooperative, comfortable CARDIAC?normal rate, regular rhythm, [...] mg 01/30/25 21:03 Bisacodyl 10 Mg Supp.Rect [place] 01/30/26 21:02 DAILY PRN Constipation Docusate Sodium 100 mg 01/30/25 21:03 02/10/25 20:22 Docusate 100 Mg Capsule PO 01/30/26 21:02 100 mg BID PRN Administration Constipation Docusate Sodium 283 mg 01/30/25 21:03 Docusate Enema 283 Mg/5 Ml Enema [place] 01/30/26 21:02 DAILY PRN Constipation Lactulose 30 [...] lower extremity skin lesion?following up with the [place] outpatient Documented By: Priscilla Rock APRN 02/14/25 1511 Signed By: <Electronically signed by JOAQUÍN Rock> 02/14/25 1759 <Electronically signed by Elba Sheppard MD> 02/15/25 1710 [facility] Work Phone: 1(180) 249-182203-21-2025 [place] [address] Hospitalist Progress Note Signed Patient: Bailee Traore MR#: [id number] : 1945 Acct:[id number] Age/Sex: 79 / M Adm Date: 5 Loc: Room: [address] [place] [address] Type: ADM IN Attending Dr: Omkar Louie [...] 02/14/25 11:09 02/14/25 11:09 02/14/25 11:09 Narrative: OMVNP-whitq-vthqqcvsi, elderly, cooperative, comfortable CARDIAC?normal rate, regular rhythm, [...] mg 01/30/25 21:03 Bisacodyl 10 Mg Supp.Rect [place] 01/30/26 21:02 DAILY PRN Constipation Docusate Sodium 100 mg 01/30/25 21:03 02/10/25 20:22 Docusate 100 Mg Capsule PO 01/30/26 21:02 100 mg BID PRN Administration Constipation Docusate Sodium 283 mg 01/30/25 21:03 Docusate Enema 283 Mg/5 Ml Enema [place] 01/30/26 21:02 DAILY PRN Constipation Lactulose 30 [...] lower extremity skin lesion?following up with the [place] outpatient Documented By: Priscilla Rock APRN 02/14/25 1511 Signed By: 02/14/25 1759 02/15/25 0754 [place]03-20-2025 Progress note Author Omkar Louie [place] Note Date/Time February 14, 2025 9:5 6am [facility] [address] [place] [address] Physiatry(Rehab) Progress Note Signed Patient: Bailee Traore MR#: [id number] : 1945 Acct:[id number] Age/Sex: 79 / M Adm Date: 5 Loc: 5T Room: [address] [place] [address] Type: ADM IN Attending Dr: Omkar Louie [...] mg 01/30/25 21:03 Bisacodyl 10 Mg Supp.Rect [place] 01/30/26 21:02 DAILY PRN Constipation Docusate Sodium 100 mg 01/30/25 21:03 02/10/25 20:22 Docusate 100 Mg Capsule PO 01/30/26 21:02 100 mg BID PRN Administration Constipation Docusate Sodium 283 mg 01/30/25 21:03 Docusate Enema 283 Mg/5 Ml Enema [place] 01/30/26 21:02 DAILY PRN Constipation Lactulose 30 [...] and proper breathing techniques during functional tasks. RECORDIST to evaluate and treat patient?s cognition, language [...] equipment to enhance the patient's a functional uatsdin Encourage deep breathing exercises and incentive spirometry [...] in facility. Pending prior authorization at the [facility] Hospitalist to assist with management of comorbid medical conditions Pain control: Limit sedating medications. Bowel and bladder: Incontinent at times Skin: As ordered, turn and position for offloading. Sleep: Optimize sleep / wake to reduce seizure risk DVT prophylaxis: As ordered, anticoagulated with Eliquis Functional status: Impaired, see PT/OT/RECORDIST. Discharge planning: [facility] facility. [facility]erral sent to the [facility]. Patient was personally seen by me, Dr. Louie, on the day of encounter, reviewed the history and the relevant portions of the chart, including current orders, allied health and senior treasury consultant notes, labs/imaging and performed bender elements of exam and I formulated the plan of care and facilitated the medical decision making. I completed a substantive portion of this encounter, the medical decision makingportion of this note in its entirety, including Allied health note review, nursing note review, senior treasury consultant note review, discussion with nursing and case management, and more than 50% of my time was spent on counseling and coordination of care, time spent 40 minutes Documented By: Omkar Louie MD 02/14/25 0814 Signed By: <Electronically signed by Omkar Louie MD> 02/14/25 0956 [facility] Work Phone: 1(571) 259-151503-20-2025 [place] [address] Physiatry(Rehab) Progress Note Signed Patient: Bailee Traore MR#: [id number] : 1945 Acct:[id number] Age/Sex: 79 / M Adm Date: 5 Loc: 5T Room: [address] [place] [address] Type: ADM IN Attending Dr: Omkar Louie [...] mg 01/30/25 21:03 Bisacodyl 10 Mg Supp.Rect [place] 01/30/26 21:02 DAILY PRN Constipation Docusate Sodium 100 mg 01/30/25 21:03 02/10/25 20:22 Docusate 100 Mg Capsule PO 01/30/26 21:02 100 mg BID PRN Administration Constipation Docusate Sodium 283 mg 01/30/25 21:03 Docusate Enema 283 Mg/5 Ml Enema [place] 01/30/26 21:02 DAILY PRN Constipation Lactulose 30 [...] and proper breathing techniques during functional tasks. RECORDIST to evaluate and treat patient?s cognition, language [...] equipment to enhance the patient's a functional uatsdin Encourage deep breathing exercises and incentive spirometry [...] in facility. Pending prior authorization at the [place] [facility] of comorbid medical conditions Pain control: Limit sedating medications. Bowel and bladder: Incontinent at times Skin: As ordered, turn and position for offloading. Sleep: Optimize sleep / wake to reduce seizure risk DVT prophylaxis: As ordered, anticoagulated with Eliquis Functional status: Impaired, see PT/OT/RECORDIST. Discharge planning: [facility]. Referral sent to the [facility]. Patient was personally seen by me, Dr. Louie, on the day of encounter, reviewed the history and therelevant portions of the chart, including current orders, allied health and senior treasury consultant notes, labs/imaging and performed bender elements of exam and I formulated the plan of care and facilitated the medical decision making. I completed a substantive portion of this encounter, the medical decision makingportion of this note in its entirety, including Allied health note review, nursing note review, senior treasury consultant note review,discussion with nursing and case management, and more than 50% of my time was spent on counseling and coordination of care, time spent 40 minutes Documented By: Omkar Louie MD 02/14/25 0814 Signed By: 02/14/25 0956 [place]03-18-2025 Progress note Author Omkar Louie [place] Note Date/Time February 12, 2025 2:4 5pm [facility] [address] [place] [address] Physiatry(Rehab) Progress Note Signed Patient: Bailee Traore MR#: [id number] : 1945 Acct:[id number] Age/Sex: 79 / M Adm Date: 5 Loc: Room: 2H9261-6 Type: ADM IN Attending Dr: Omkar Louie [...] mg 01/30/25 21:03 Bisacodyl 10 Mg Supp.Rect [place] 01/30/26 21:02 DAILY PRN Constipation Docusate Sodium 100 mg 01/30/25 21:03 02/10/25 20:22 Docusate 100 Mg Capsule PO 01/30/26 21:02 100 mg BID PRN Administration Constipation Docusate Sodium 283 mg 01/30/25 21:03 Docusate Enema 283 Mg/5 Ml Enema [place] 01/30/26 21:02 DAILY PRN Constipation Lactulose 30 [...] and proper breathing techniques during functional tasks. RECORDIST to evaluate and treat patient?s cognition, language [...] equipment to enhance the patient's a functional uatsdin Encourage deep breathing exercises and incentive spirometry [...] acknowledge need for continued rehab in a intermediate facility setting. They prefer if he remains close to the hospital and his current doctors. [facility] Hospitalist to assist with management of comorbid medical conditions Pain control: Limit sedating medications. Bowel and bladder: Incontinent at times Skin: As ordered, turn and position for offloading. Sleep: Optimize sleep / wake to reduce seizure risk DVT prophylaxis: As ordered, anticoagulated with Eliquis Functional status: Impaired, see PT/OT/RECORDIST. Discharge planning: [facility] facility. Referral sent to the [facility]. Patient was personally seen by me, Dr. Louie, on the day of encounter, reviewed the history and the relevant portions of the chart, including current orders, allied health and senior treasury consultant notes, labs/imaging and performed bender elements of exam and I formulated the plan of care and facilitated the medical decision making. I completed a substantive portion of this encounter, the medical decision makingportion of this note in its entirety, including Allied health note review, nursing note review, senior treasury consultant note review, discussion with nursing and [...] <Electronically signed by Omkar Louie MD> 02/12/251444 [facility] Work Phone: 1(324) 357-686203-18-2025 Progress note Author Omkar Louie [place] Note Date/Time February 12, 2025 2:4 3pm [facility] [address] [address] Physiatry(Rehab) Progress Note Signed Patient: Bailee Traore MR#: [id number] : 1945 Acct:[id number] Age/Sex: 79 / M Adm Date: 5 Loc: Room: 0M6073-4 Type: ADM IN Attending Dr: Omkar Louie [...] mg 01/30/25 21:03 Bisacodyl 10 Mg Supp.Rect [place] 01/30/26 21:02 DAILY PRN Constipation Docusate Sodium 100 mg 01/30/25 21:03 02/10/25 20:22 Docusate 100 Mg Capsule PO 01/30/26 21:02 100 mg BID PRN Administration Constipation Docusate Sodium 283 mg 01/30/25 21:03 Docusate Enema 283 Mg/5 Ml Enema [place] 01/30/26 21:02 DAILY PRN Constipation Lactulose 30 [...] and proper breathing techniques during functional tasks. RECORDIST to evaluate and treat patient?s cognition, language [...] equipment to enhance the patient's a functional uatsdin Encourage deep breathing exercises and incentive spirometry [...] and brother who will be present from [facility] to assist with management of comorbid medical conditions Pain control: Limit sedating medications. Bowel and bladder: Incontinent at times Skin: As ordered, turn and position for offloading. Sleep: Optimize sleep / wake to reduce seizure risk DVT prophylaxis: As ordered, anticoagulated with Eliquis Functional status: Impaired, see PT/OT/RECORDIST. Discharge planning: [facility] facility. I spent 25 minutes for services, including qvfv-im-suvt encounter with the patient, discussion of the case, plan of care, and exam; and sgdulrb-vy-iixg activities, such as reviewing pertinent senior treasury consultant documentation, recent therapynotes, laboratory and radiology studies, and discussion of case with care team including physician, nursing, social work case manager, and therapists. More than 50 % of time was spent on patient/family counseling or coordination ofcare. Documented By: Omkar Louie MD 02/12/25 144 Signed By: <Electronically signed by Omkar Louie MD> 02/12/25 1443 [facility] Work Phone: 1(757) 713-814503-18-2025 [place] [address] Physiatry(Rehab) Progress Note Signed Patient: Bailee Traore MR#: [id number] : 1945 Acct:[id number] Age/Sex: 79 / M Adm Date: 5 Loc: Room: 7N3708-1 Type: ADM IN Attending Dr: Omkar Louie [...] mg 01/30/25 21:03 Bisacodyl 10 Mg Supp.Rect [place] 01/30/26 21:02 DAILY PRN Constipation Docusate Sodium 100 mg 01/30/25 21:03 02/10/25 20:22 Docusate 100 Mg Capsule PO 01/30/26 21:02 100 mg BID PRN Administration Constipation Docusate Sodium 283 mg 01/30/25 21:03 Docusate Enema 283 Mg/5 Ml Enema [place] 01/30/26 21:02 DAILY PRN Constipation Lactulose 30 [...] and proper breathing techniques during functional tasks. RECORDIST to evaluate and treat patient?s cognition, language [...] equipment to enhance the patient's a functional uatsdin Encourage deep breathing exercises and incentive spirometry [...] acknowledge need for continued rehab in a intermediate facility setting. They prefer if he remains close to the hospital and his current doctors. They chose the [facility]. Hospitalist to assist with management of comorbid medical conditions Pain control: Limit sedating medications. Bowel and bladder: Incontinent at times Skin: As ordered, turn and position for offloading. Sleep: Optimize sleep / wake to reduce seizure risk DVT prophylaxis: As ordered, anticoagulated with Eliquis Functional status: Impaired, see PT/OT/RECORDIST. Discharge planning: [facility] facility. Referral sent to the [facility]. Patient was personally seen by me, Dr. Louie, on the day of encounter, reviewed the history and therelevant portions of the chart, including current orders, allied health and senior treasury consultant notes, labs/imaging and performed bender elements of exam and I formulated the plan of care and facilitated the medical decision making. I completed a substantive portion of this encounter, the medical decision makingportion of this note in its entirety, including Allied health note review, nursing note review, senior treasury consultant note review,discussion with nursing and case management, and more than 50% of my time was spent on counseling and coordination of care, time spent 45 minutes In addition to above, patient's case reviewed at weekly team conference, discussed progress and goals of care, barriers/problems to date and discharge planning. Documented By: Omkar Louie MD 02/12/25 1443 Signed By: 02/12/25 1445 [place]03-18-2025 [place] [address] Physiatry(Rehab) Progress Note Signed Patient: Bailee Traore MR#: [id number] : 1945 Acct:[id number] Age/Sex: 79 / M Adm Date: 5 Loc: 5T Room: 4Q3439-4 Type: ADM IN Attending Dr: Omkar Louie [...] mg 01/30/25 21:03 Bisacodyl 10 Mg Supp.Rect [place] 01/30/26 21:02 DAILY PRN Constipation Docusate Sodium 100 mg 01/30/25 21:03 02/10/25 20:22 Docusate 100 Mg Capsule PO 01/30/26 21:02 100 mg BID PRN Administration Constipation Docusate Sodium 283 mg 01/30/25 21:03 Docusate Enema 283 Mg/5 Ml Enema [place] 01/30/26 21:02 DAILY PRN Constipation Lactulose 30 [...] and proper breathing techniques during functional tasks. RECORDIST to evaluate and treat patient?s cognition, language [...] equipment to enhance the patient's a functional uatsdin Encourage deep breathing exercises and incentive spirometry [...] and brother who will be present from [facility] to assist with management of comorbid medical conditions Pain control: Limit sedating medications. Bowel and bladder: Incontinent at times Skin: As ordered, turn and position for offloading. Sleep: Optimize sleep / wake to reduce seizure risk DVT prophylaxis: As ordered, anticoagulated with Eliquis Functional status: Impaired, see PT/OT/RECORDIST. Discharge planning: [facility]. I spent 25 minutes for services, including smeo-wx-xsna encounter with the patient, discussion of the case, plan of care, and exam; and rryzgwr-xu-llzs activities, such as reviewing pertinent senior treasury consultant documentation, recent therapynotes, laboratory and radiology studies, and discussion of case with care team including physician, nursing, social work case manager, and therapists. More than 50 % of time was spent on patient/family counseling or coordination ofcare. Documented By: Omkar Louie MD 02/12/251441 Signed By: 02/12/25 1443 [place]03-15-2025 Progress note Author Omkar Louie [place] Note Date/Time February 09, 2025 8:0 2am [facility] [address] [address] Physiatry(Rehab) Progress Note Signed Patient: Bailee Traore MR#: [id number] : 1945 Acct:[id number] Age/Sex: 79 / M Adm Date: 5 Loc: Room: [address] [place] [address] Type: ADM IN Attending Dr: Omkar Louie [...] be called to remove him. Discharged to intermediate facility. Patient has limited insight but is [...] mg 01/30/25 21:03 Bisacodyl 10 Mg Supp.Rect [place] 01/30/26 21:02 DAILY PRN Constipation Docusate Sodium 100 mg 01/30/25 21:03 02/06/25 21:02 Docusate 100 Mg Capsule PO 01/30/26 21:02 100 mg BID PRN Administration Constipation Docusate Sodium 283 mg 01/30/25 21:03 Docusate Enema 283 Mg/5 Ml Enema [place] 01/30/26 21:02 DAILY PRN Constipation Lactulose 30 [...] Tablet.Dr PO 01/31/26 17:59 40 mg DAILY.PC.SUPPER LA Administration Quetiapine Fumarate 25 mg 01/31/25 22:00 02/07/25 20:25 Quetiapine Fumarate 25 Mg Tablet PO 01/31/26 21:59 25 mg QHS AL Administration Sennosides 17.2 mg 01/31/25 12:00 Sennosides 8.6 Mg Tablet PO 01/31/26 11:59 DAILY@12 PRN If no BM in 2 days Sodium Chloride 0 ml 01/31/25 09:00 02/08/25 08:33 Sodium Chloride 0.9 % 10 Ml Syringe IV-PUSH 01/31/26 08:59 Not Given BID [facility] Assessment/Plan Assessment/Plan (1) Nontraumatic brain injury: [...] and proper breathing techniques during functional tasks. RECORDIST to evaluate and treat patient?s cognition, language [...] equipment to enhance the patient's a functional uatsdin Encourage deep breathing exercises and incentive spirometry [...] contact, Ray, at the bedside. Agreeable to intermediate facility placement. Case management will make referrals. [...] anticoagulated with Eliquis Functional status: Impaired, see PT/OT/RECORDIST. Discharge planning: [facility]. I spent 25 minutes for services, including nbyo-ww-olvh encounter with the patient, discussion of the case, plan of care, and exam; and iunqgff-hn-rlhn activities, such as reviewing pertinent senior treasury consultant documentation, recent therapynotes, laboratory and radiology studies, and discussion of case with care team including physician, nursing, social work case manager, and therapists. More than 50 % of time was spent on patient/family counseling or coordination ofcare. Documented By: Omkar Louie MD 02/08/25 0848 Signed By: <Electronically signed by Omkar Louie MD> 02/09/25 0802 [facility] Work Phone: 1(210) 113-973003-15-2025 [place] [address] Physiatry(Rehab) Progress Note Signed Patient: Bailee Traore MR#: [id number] : 1945 Acct:[id number] Age/Sex: 79 / M Adm Date: 5 Loc: Room: [address] [place] [address] Type: ADM IN Attending Dr: Omkar Louie [...] be called to remove him. Discharged to intermediate facility. Patient has limited insight but is [...] mg 01/30/25 21:03 Bisacodyl 10 Mg Supp.Rect [place] 01/30/26 21:02 DAILY PRN Constipation Docusate Sodium 100 mg 01/30/25 21:03 02/06/25 21:02 Docusate 100 Mg Capsule PO 01/30/26 21:02 100 mg BID PRN Administration Constipation Docusate Sodium 283 mg 01/30/25 21:03 Docusate Enema 283 Mg/5 Ml Enema [place] 01/30/26 21:02 DAILY PRN Constipation Lactulose 30 [...] Syringe IV-PUSH 01/31/26 08:59 Not Given BID [facility] Assessment/Plan Assessment/Plan (1) Nontraumatic brain injury: [...] and proper breathing techniques during functional tasks. RECORDIST to evaluate and treat patient?s cognition, language [...] equipment to enhance the patient's a functional uatsdin Encourage deep breathing exercises and incentive spirometry [...] contact, Ray, at the bedside. Agreeable to intermediate facility placement. Case management will make referrals. [...] anticoagulated with Eliquis Functional status: Impaired, see PT/OT/RECORDIST. Discharge planning: [facility]. I spent 25 minutes for services, including tqda-oy-pcev encounter with the patient, discussion of the case, plan of care, and exam; and hyoqekr-jc-vdsc activities, such as reviewing pertinent senior treasury consultant documentation, recent therapynotes, laboratory and radiology studies, and discussion of case with care team including physician, nursing, social work case manager, and therapists. More than 50 % of time was spent on patient/family counseling or coordination ofcare. Documented By: Omkar Louie MD 02/08/25 0848 Signed By: 02/09/25 0802 [place]03-13-2025 Progress note Author Jillian Mendez [place] Note Date/Time February 07, 2025 3:5 9pm [facility] [address] [place] [address] Hospitalist Progress Note Signed Patient: Bailee Traore MR#: [id number] : 1945 Acct:[id number] Age/Sex: 79 / M Adm Date: 5 Loc: Room: [address] [place] [address] Type: ADM IN Attending Dr: Omkar Louie [...] 02/07/25 11:57 02/07/25 11:57 02/07/25 11:57 Narrative: AUQTN-vrihj-qbosybaxh, elderly, cooperative, comfortable. Distractible CARDIAC?normal rate, regular [...] mg 01/30/25 21:03 Bisacodyl 10 Mg Supp.Rect [place] 01/30/26 21:02 DAILY PRN Constipation Docusate Sodium 100 mg 01/30/25 21:03 02/06/25 21:02 Docusate 100 Mg Capsule PO 01/30/26 21:02 100 mg BID PRN Administration Constipation Docusate Sodium 283 mg 01/30/25 21:03 Docusate Enema 283 Mg/5 Ml Enema [place] 01/30/26 21:02 DAILY PRN Constipation Lactulose 30 [...] lower extremity skin lesion?following up with the [facility] outpatient Documented By: Jillian Mendez APRN 01/26 02/19 1213 Signed By: <Electronically signed by JOAQUÍN Mendez> 02/07/25 3614 [facility] Work Phone: 1(609) 616-403003-13-2025 Progress note Author Omkar Louie [place] Note Date/Time February 07, 2025 2:0 2pm [facility] [address] [address] Physiatry(Rehab) Progress Note Signed Patient: Bailee Traore MR#: [id number] : 1945 Acct:[id number] Age/Sex: 79 / M Adm Date: 5 Loc: Room: [address] [place] [address] Type: ADM IN Attending Dr: Omkar Louie [...] % (Auto) 41.9 Lymph % (Auto) 41.8 [place] % (Auto) 10.8 Eos % (Auto) 5.1 Baso % (Auto) 0.4 Nucleat RBC Rel Count 0.2 Neut # (Auto) 2.8 Lymph # (Auto) 2.8 [place] # (Auto) 0.7 Eos # (Auto) 0.3 [...] mg 01/30/25 21:03 Bisacodyl 10 Mg Supp.Rect [place] 01/30/26 21:02 DAILY PRN Constipation Docusate Sodium 100 mg 01/30/25 21:03 02/06/25 21:02 Docusate 100 Mg Capsule PO 01/30/26 21:02 100 mg BID PRN Administration Constipation Docusate Sodium 283 mg 01/30/25 21:03 Docusate Enema 283 Mg/5 Ml Enema [place] 01/30/26 21:02 DAILY PRN Constipation Lactulose 30 [...] and proper breathing techniques during functional tasks. RECORDIST to evaluate and treat patient?s cognition, language [...] equipment to enhance the patient's a functional uatsdin Encourage deep breathing exercises and incentive spirometry [...] -Continues to improve. I would agree with intermediate versus home with homehealth care soon. He [...] anticoagulated with Eliquis Functional status: Impaired, see PT/OT/RECORDIST. Discharge planning:Home in 1-2 weeks, lives home alone. I spent 25 minutes for services, including bxmv-yi-qeuu encounter with the patient, discussion of the case, plan of care, and exam; and fsuxpra-wb-nbhf activities, such as reviewing pertinent senior treasury consultant documentation, recent therapynotes, laboratory and radiology studies, and discussion of case with care team including physician, nursing, social work case manager, and therapists. More than 50 % of time was spent on patient/family counseling or coordination ofcare. Documented By: Omkar Louie MD 02/07/25 4600 Signed By: <Electronically signed by Omkar Louie MD> 02/07/25 1408 [facility] Work Phone: 1(865) 660-560303-13-2025 [place] [address] Hospitalist Progress Note Signed Patient: Bailee Traore MR#: [id number] : 1945 Acct:[id number] Age/Sex: 79 / M Adm Date: 5 Loc: Room: 0C0225-7 Type: ADM IN Attending Dr: Omkar Louie [...] 02/07/25 11:57 02/07/25 11:57 02/07/25 11:57 Narrative: JYAET-cbqnt-chuzdozvt, elderly, cooperative, comfortable. Distractible CARDIAC?normal rate, regular [...] mg 01/30/25 21:03 Bisacodyl 10 Mg Supp.Rect [place] 01/30/26 21:02 DAILY PRN Constipation Docusate Sodium 100 mg 01/30/25 21:03 02/06/25 21:02 Docusate 100 Mg Capsule PO 01/30/26 21:02 100 mg BID PRN Administration Constipation Docusate Sodium 283 mg 01/30/25 21:03 Docusate Enema 283 Mg/5 Ml Enema [place] 01/30/26 21:02 DAILY PRN Constipation Lactulose 30 [...] lower extremity skin lesion?following up with the [facility] outpatient Documented By: Jillian Mendez, JOAQUÍN 01/26 02/19 1213 Signed By: 02/07/25 1559 [place]03-13-2025 [place] [address] Physiatry(Rehab) Progress Note Signed Patient: Bailee Traore MR#: [id number] : 1945 Acct:[id number] Age/Sex: 79 / M Adm Date: 5 Loc: Room: 9P7662-2 Type: ADM IN Attending Dr: Omkar Louie [...] % (Auto) 41.9 Lymph % (Auto) 41.8 [place] % (Auto) 10.8 Eos % (Auto) 5.1 Baso % (Auto) 0.4 Nucleat RBC Rel Count 0.2 Neut # (Auto) 2.8 Lymph # (Auto) 2.8 [place] # (Auto) 0.7 Eos # (Auto) 0.3 [...] mg 01/30/25 21:03 Bisacodyl 10 Mg Supp.Rect [place] 01/30/26 21:02 DAILY PRN Constipation Docusate Sodium 100 mg 01/30/25 21:03 02/06/25 21:02 Docusate 100 Mg Capsule PO 01/30/26 21:02 100 mg BID PRN Administration Constipation Docusate Sodium 283 mg 01/30/25 21:03 Docusate Enema 283 Mg/5 Ml Enema [place] 01/30/26 21:02 DAILY PRN Constipation Lactulose 30 [...] and proper breathing techniques during functional tasks. RECORDIST to evaluate and treat patient?s cognition, language [...] equipment to enhance the patient's a functional uatsdin Encourage deep breathing exercises and incentive spirometry [...] -Continues to improve. I would agree with intermediate versus home with homehealth care soon. Anthony [...] anticoagulated with Eliquis Functional status: Impaired, see PT/OT/RECORDIST. Discharge planning:Home in 1-2 weeks, lives home alone. I spent 25 minutes for services, including bakg-ij-sdge encounter with the patient, discussion of the case, plan of care, and exam; and mqqwxxy-ju-wqgm activities, such as reviewing pertinent senior treasury consultant documentation, recent therapynotes, laboratory and radiology studies, and discussion of case with care team including physician, nursing, social work case manager, and therapists. More than 50 % of time was spent on patient/family counseling or coordination ofcare. Documented By: Omkar Louie MD 02/07/25 1359 Signed By: 02/07/25 1402 [place]03-12-2025 Progress note Author Romy Leon [place] Note Date/Time February 06, 2025 9:4 9pm [facility] [address] [address] Physiatry(Rehab) Progress Note Signed Patient: Bailee Traore MR#: [id number] : 1945 Acct:[id number] Age/Sex: 79 / M Adm Date: 5 Loc: 5T Room: 5K8687-0 Type: ADM IN Attending Dr: Omkar Louie [...] admission with a referral given to a [facility] cafeteria aide in [place]. He has not had a chance to [...] mg 01/30/25 21:03 Bisacodyl 10 Mg Supp.Rect [place] 01/30/26 21:02 DAILY PRN Constipation Docusate Sodium 100 mg 01/30/25 21:03 Docusate 100 Mg Capsule PO 01/30/26 21:02 BID PRN Constipation Docusate Sodium 283 mg 01/30/25 21:03 Docusate Enema 283 Mg/5 Ml Enema [place] 01/30/26 21:02 DAILY PRN Constipation Lactulose 30 [...] and proper breathing techniques during functional tasks. RECORDIST to evaluate and treat patient?s cognition, language [...] equipment to enhance the patient's a functional uatsdin Encourage deep breathing exercises and incentive spirometry [...] extremitylesion -Will likely need SNF placement [place] -I continued to advise against driving at [place] Hospitalist to assist with management of comorbid medical conditions Pain control: Limit sedating medications. Bowel and bladder: [place] noted. Skin: As ordered, turn and position for offloading. Sleep: Optimize sleep / wake to reduce seizure risk DVT prophylaxis: As ordered, anticoagulated with Eliquis Functional status: Impaired, see PT/OT/RECORDIST. Discharge planning:Home in 1-2 weeks, lives home alone. I spent 18 minutes for services, including lauz-nf-hypj encounter with the patient, discussion of the case, plan of care, and exam; and kgwfrqr-om-egch activities, such as reviewing pertinent senior treasury consultant documentation, recent therapynotes, laboratory and radiology studies, and discussion of case with care team including physician, nursing, social work case manager, and therapists. More than 50 % of time was spent on patient/family counseling or coordination ofcare. <Statement entered by Oren Lara MD - 02/06/25 21:49> This documentation has been reviewed and approved. Documented By: Romy Leon APRN 02/06/25 1 258 Signed By: <Electronically signed by JOAQUÍN Leon> 02/06/25 1306 <Electronically signed by Oren Lara MD> 02/06/25 1545 [facility] Work Phone: 1(740) 139-726403-12-2025 [place] [address] Physiatry(Rehab) Progress Note Signed Patient: Bailee Traore MR#: [id number] : 1945 Acct:[id number] Age/Sex: 79 / M Adm Date: 5 Loc: Room: [address] [place] [address] Type: ADM IN Attending Dr: Omkar Louie [...] admission with a referral given to a [facility] cafeteria aide in [place]. He has not had a chance to [...] mg 01/30/25 21:03 Bisacodyl 10 Mg Supp.Rect [place] 01/30/26 21:02 DAILY PRN Constipation Docusate Sodium 100 mg 01/30/25 21:03 Docusate 100 Mg Capsule PO 01/30/26 21:02 BID PRN Constipation Docusate Sodium 283 mg 01/30/25 21:03 Docusate Enema 283 Mg/5 Ml Enema [place] 01/30/26 21:02 DAILY PRN Constipation Lactulose 30 [...] and proper breathing techniques during functional tasks. RECORDIST to evaluate and treat patient?s cognition, language [...] equipment to enhance the patient's a functional uatsdin Encourage deep breathing exercises and incentive spirometry RD evaluation Ensure adequate nutrition and hydration Discharge planning. 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 rTaore is a 79 year old male who [...] extremitylesion -Will likely need [facility] placement at [place] -I continued to advise against driving at [place] Hospitalist to assist with management of comorbid medical conditions Pain control: Limit sedating medications. Bowel and bladder: Pizano noted. Skin: As ordered, turn and position for offloading. Sleep: Optimize sleep / wake to reduce seizure risk DVT prophylaxis: As ordered, anticoagulated with Eliquis Functional status: Impaired, see PT/OT/RECORDIST. Discharge planning:Home in 1-2 weeks, lives home alone. I spent 18 minutes for services, including qjrp-ag-dziw encounter with the patient, discussion of the case, plan of care, and exam; and rkpbddj-tk-gbqb activities, such as reviewing pertinent senior treasury consultant documentation, recent therapynotes, laboratory and radiology studies, and discussion of case with care team including physician, nursing, social work case manager, and therapists. More than 50 % of time was spent on patient/family counseling or coordination ofcare. This documentation has been reviewed and approved. Documented By: Romy Leon APRN 02/06/25 1 258 Signed By: 02/06/25 1306 02/06/25 2145 [place]03-11-2025 Progress note Author Oren Lara [place] Note Date/Time February 05, 2025 9:4 5pm [facility] [address] [address] Physiatry(Rehab) Progress Note Signed Patient: Bailee Traore MR#: [id number] : 1945 Acct:[id number] Age/Sex: 79 / M Adm Date: 5 Loc: Room: [address] [place] [address] Type: ADM IN Attending Dr: Omkar Louie [...] down or I would need to call [facility]. He proceeded to leavethe room stating that I, would be hearing from his tour agent . I proceeded to provide information to [...] mg 01/30/25 21:03 Bisacodyl 10 Mg Supp.Rect [place] 01/30/26 21:02 DAILY PRN Constipation Docusate Sodium 100 mg 01/30/25 21:03 Docusate 100 Mg Capsule PO 01/30/26 21:02 BID PRN Constipation Docusate Sodium 283 mg 01/30/25 21:03 Docusate Enema 283 Mg/5 Ml Enema [place] 01/30/26 21:02 DAILY PRN Constipation Lactulose 30 [...] and proper breathing techniques during functional tasks. RECORDIST to evaluate and treat patient?s cognition, language [...] equipment to enhance the patient's a functional uatsdin Encourage deep breathing exercises and incentive spirometry [...] anticoagulated with Eliquis Functional status: Impaired, see PT/OT/RECORDIST. Discharge planning:Home in 1-2 weeks, lives home alone. I spent 46 minutes for services, including kthy-wr-penu encounter with the patient, discussion of the case, plan of care, and exam; and whdgqeo-gu-qdyk activities, such as reviewing pertinent senior treasury consultant documentation, recent therapynotes, laboratory and radiology studies, and discussion of case with care team including physician, nursing, social work case manager, and therapists. More than 50 % of time was spent on patient/family counseling or coordination ofcare. xam and I formulated the plan of care and facilitated the medical decision making. Documented By: Oren Lara MD 1342 Signed By: <Electronically signed by Oren Lara MD> 02/05/25 [facility] Work Phone: 1(295) 862-871103-11-2025 [place] [address] Physiatry(Rehab) Progress Note Signed Patient: Bailee Traore MR#: [id number] : 1945 Acct:[id number] Age/Sex: 79 / M Adm Date: 5 Loc: Room: 3G0914-5 Type: ADM IN Attending Dr: Omkar Louie [...] down or I would need to call [facility]. He proceeded to leavethe room stating that I, would be hearing from his tour agent . I proceeded to provide information to [...] mg 01/30/25 21:03 Bisacodyl 10 Mg Supp.Rect [place] 01/30/26 21:02 DAILY PRN Constipation Docusate Sodium 100 mg 01/30/25 21:03 Docusate 100 Mg Capsule PO 01/30/26 21:02 BID PRN Constipation Docusate Sodium 283 mg 01/30/25 21:03 Docusate Enema 283 Mg/5 Ml Enema [place] 01/30/26 21:02 DAILY PRN Constipation Lactulose 30 [...] and proper breathing techniques during functional tasks. RECORDIST to evaluate and treat patient?s cognition, language [...] equipment to enhance the patient's a functional uatsdin Encourage deep breathing exercises and incentive spirometry [...] anticoagulated with Eliquis Functional status: Impaired, see PT/OT/RECORDIST. Discharge planning:Home in 1-2 weeks, lives home alone. I spent 46 minutes for services, including ozur-yq-zqoi encounter with the patient, discussion of the case, plan of care, and exam; and cxocqbe-vx-zjny activities, such as reviewing pertinent senior treasury consultant documentation, recent therapynotes, laboratory and radiology studies, and discussion of case with care team including physician, nursing, social work case manager, and therapists. More than 50 % of time was spent on patient/family counseling or coordination ofcare. hollis and I formulated the plan of care and facilitated the medical decision making. Documented By: Oren Lara MD 1342 Signed By: 02/05/25 2145 [place]03-10-2025 Progress note Author Oren Lara [place] Note Date/Time February 04, 2025 9:0 2pm [facility] [address] [address] Physiatry(Rehab) Progress Note Signed Patient: Bailee Traore MR#: [id number] : 1945 Acct:[id number] Age/Sex: 79 / M Adm Date: 5 Loc: Room: 1B2016-1 Type: ADM IN Attending Dr: Omkar Louie [...] memory regarding the event which brought [facility]. I did meet with neurology today as well. Dr. 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 The patient will need neurology follow up outpatientas well as oncology appointment arranged at [place]. Review of Systems Review of Systems All [...] mg 01/30/25 21:03 Bisacodyl 10 Mg Supp.Rect [place] 01/30/26 21:02 DAILY PRN Constipation Docusate Sodium 100 mg 01/30/25 21:03 Docusate 100 Mg Capsule PO 01/30/26 21:02 BID PRN Constipation Docusate Sodium 283 mg 01/30/25 21:03 Docusate Enema 283 Mg/5 Ml Enema [place] 01/30/26 21:02 DAILY PRN Constipation Lactulose 30 [...] and proper breathing techniques during functional tasks. RECORDIST to evaluate and treat patient?s cognition, language [...] equipment to enhance the patient's a functional uatsdin Encourage deep breathing exercises and incentive spirometry [...] anticoagulated with Eliquis Functional status: Impaired, see PT/OT/RECORDIST. Discharge planning:Home in 1-2 weeks, lives home alone. I spent 26 minutes for services, including zxck-rf-ejzp encounter with the patient, discussion of the case, plan of care, and exam; and kzekxnh-av-meyh activities, such as reviewing pertinent senior treasury consultant documentation, recent therapynotes, laboratory and radiology studies, and discussion of case with care team including physician, nursing, social work case manager, and therapists. More than 50 % of time was spent on patient/family counseling or coordination ofcare. xam and I formulated the plan of care and facilitated the medical decision making. Documented By: Oren Lara MD 2058 Signed By: <Electronically signed by Oren Lara MD> 02/04/252101 [facility] Work Phone: 1(825) 370-776203-10-2025 [place] [id number] Physiatry(Rehab) Progress Note Signed Patient: Bailee Traore MR#: [id number] : 1945 Acct:[id number] Age/Sex: 79 / M Adm Date: 5 Loc: Room: [address] [place] [address] Type: ADM IN Attending Dr: Omkar Louie [...] memory regarding the event which brought [facility]. I did meet with neurology today as well. Dr. 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 The patient will need neurology follow [place] [facility] [facility] [place] [facility] Systems Review of Systems All [...] mg 01/30/25 21:03 Bisacodyl 10 Mg Supp.Rect [place] 01/30/26 21:02 DAILY PRN Constipation Docusate Sodium 100 mg 01/30/25 21:03 Docusate 100 Mg Capsule PO 01/30/26 21:02 BID PRN Constipation Docusate Sodium 283 mg 01/30/25 21:03 Docusate Enema 283 Mg/5 Ml Enema [place] 01/30/26 21:02 DAILY PRN Constipation Lactulose 30 [...] and proper breathing techniques during functional tasks. RECORDIST to evaluate and treat patient?s cognition, language [...] equipment to enhance the patient's a functional uatsdin Encourage deep breathing exercises and incentive spirometry [...] anticoagulated with Eliquis Functional status: Impaired, see PT/OT/RECORDIST. Discharge planning:Home in 1-2 weeks, lives home alone. I spent 26 minutes for services, including fqyd-qn-wzne encounter with the patient, discussion of the case, plan of care, and exam; and dotqyhh-hg-tiyp activities, such as reviewing pertinent senior treasury consultant documentation, recent therapynotes, laboratory and radiology studies, and discussion of case with care team including physician, nursing, social work case manager, and therapists. More than 50 % of time was spent on patient/family counseling or coordination ofcare. xam and I formulated the plan of care and facilitated the medical decision making. Documented By: Oren Lara MD 2058 Signed By: 02/04/252101 [place]03-10-2025 Progress note Author Bartolmoe Amezquita [place] Note Date/Time February 04, 2025 2:4 4pm [facility] [address] [place] [address] Neurology Progress Note Signed Patient: Bailee Traore MR#: [id number] : 1945 Acct:[id number] Age/Sex: 79 / M Adm Date: 5 Loc: Room: [address] [place] [address] Type: ADM IN Attending Dr: Omkar Louie [...] <Electronically signed by Bartolome Amezquita DO> 02/04/25 7692 [facility] Work Phone: 1(633) 590-493803-10-2025 [place] [id number] Neurology Progress Note Signed Patient: Bailee Traore MR#: [id number] : 1945 Acct:[id number] Age/Sex: 79 / M Adm Date: 5 Loc: Room: 2C0356-2 Type: ADM IN Attending Dr: Omkar Louie [...] Amezquita DO 02/04/258 Signed By: 02/04/25 1444 [place]03-09-2025 Progress note Author Bartolome Amezquita [place] Note Date/Time February 03, 2025 1:14 pm [facility] [address] [place] [address] Neurology Progress Note Signed Patient: Bailee Traore MR#: [id number] : 1945 Acct:[id number] Age/Sex: 79 / M Adm Date: 5 Loc: Room: 3T7062-0 Type: ADM IN Attending Dr: Omkar Louie [...] signed by Bartolome Amezquita DO> 02/03/25 1314 [facility] Work Phone: 1(579) 707-726203-09-2025 [place] [address] Neurology Progress Note Signed Patient: Bailee Traore MR#: [id number] : 1945 Acct:[id number] Age/Sex: 79 / M Adm Date: 5 Loc: Room: 7E8531-0 Type: ADM IN Attending Dr: Omkar Louie [...] DO 02/03/25 1311 Signed By: 02/03/25 1314 [place]03-09-[address] [address] Neurology Procedure Note Signed Patient: Bailee Traore MR#: [id number] : 1945 Acct:[id number] Age/Sex: 79 / M Adm Date: 5 Loc: 5T Room: [address] [place] [address] Type: ADM IN Attending Dr: Omkar Louie [...] Amezquita DO 02/03/251309 Signed By: 02/03/25 1311 [place]03-07-2025 Progress note Author Bartolome Amezquita [place] Note Date/Time February 01, 2025 4:25 pm [facility] [address] [place] [address] Neurology Progress Note Signed Patient: Bailee Traore MR#: [id number] : 1945 Acct:[id number] Age/Sex: 79 / M Adm Date: Loc: Room: 6V6028-2 Type: ADM IN Attending Dr: Omkar Louie [...] <Electronically signed by Bartolome Amezquita DO> 02/01/251724 [facility] Work Phone: 1(820) 237-957303-07-2025 [place] [address] Neurology Progress Note Signed Patient: Bailee Traore MR#: [id number] : 1945 Acct:[id number] Age/Sex: 79 / M Adm Date: 5 Loc: Room: [address] [place] [address] Type: ADM IN Attending Dr: Omkar Louie [...] Bartolome Amezquita DO 02/01/251723 Signed By: 02/01/251724 [place]03-07-2025 Progress note Author Romy Leon [place] Note Date/Time February 01, 2025 1:47 pm [facility] [address] [place] [address] Physiatry(Rehab) Progress Note Signed Patient: Bailee Traore MR#: [id number] : 1945 Acct:[id number] Age/Sex: 79 / M Adm Date: 5 Loc: Room: [address] [place] [address] Type: ADM IN Attending Dr: Omkar Louie [...] mg 01/30/25 21:03 Bisacodyl 10 Mg Supp.Rect [place] 01/30/26 21:02 DAILY PRN Constipation Docusate Sodium 100 mg 01/30/25 21:03 Docusate 100 Mg Capsule PO 01/30/26 21:02 BID PRN Constipation Docusate Sodium 283 mg 01/30/25 21:03 Docusate Enema 283 Mg/5 Ml Enema [place] 01/30/26 21:02 DAILY PRN Constipation Lactulose 30 [...] and proper breathing techniques during functional tasks. RECORDIST to evaluate and treat patient?s cognition, language [...] equipment to enhance the patient's a functional uatsdin Encourage deep breathing exercises and incentive spirometry [...] anticoagulated with Eliquis Functional status: Impaired, see PT/OT/RECORDIST. Discharge planning:Home in 1-2 weeks, lives home alone. I spent 21 minutes for services, including yheq-xt-idba encounter with the patient, discussion of the case, plan of care, and exam; and qibtlaj-ec-bkyp activities, such as reviewing pertinent senior treasury consultant documentation, recent therapynotes, laboratory and radiology studies, and discussion of case with care team including physician, nursing, social work case manager, and therapists. More than 50 % of time was spent on patient/family counseling or coordination ofcare. xadenia and I formulated the plan of care and facilitated the medical decision making. <Statement entered by Oren Lara MD - 02/01/25 14:47> I reviewed the history and the relevant portions of the chart, including currentorders, allied health and senior treasury consultant notes, labs/imaging and plan of care as above. Documented By: Romy Leon APRN 02/01/25 1 259 Signed By: <Electronically signed by JOAQUÍN Leon> 02/01/25 1317 <Electronically signed by Oren Lara MD> 02/01/25 1447 [facility] Work Phone: [phone]) [phone] [place] [address] Physiatry(Rehab) Progress Note Signed Patient: Bailee Traore MR#: Denia [id number] : 1945 Acct:[id number] Age/Sex: 79 / M Adm Date: 5 Loc: Room: 8E2719-5 Type: ADM IN Attending Dr: Omkar Louie [...] mg 01/30/25 21:03 Bisacodyl 10 Mg Supp.Rect [place] 01/30/26 21:02 DAILY PRN Constipation Docusate Sodium 100 mg 01/30/25 21:03 Docusate 100 Mg Capsule PO 01/30/26 21:02 BID PRN Constipation Docusate Sodium 283 mg 01/30/25 21:03 Docusate Enema 283 Mg/5 Ml Enema [place] 01/30/26 21:02 DAILY PRN Constipation Lactulose 30 [...] and proper breathing techniques during functional tasks. RECORDIST to evaluate and treat patient?s cognition, language [...] equipment to enhance the patient's a functional uatsdin Encourage deep breathing exercises and incentive spirometry [...] anticoagulated with Eliquis Functional status: Impaired, see PT/OT/RECORDIST. Discharge planning:Home in 1-2 weeks, lives home alone. I spent 21 minutes for services, including sefu-zm-fiek encounter with the patient, discussion of the case, plan of care, and exam; and togmxzy-ku-ezqx activities, such as reviewing pertinent senior treasury consultant documentation, recent therapynotes, laboratory and radiology studies, and discussion of case with care team including physician, nursing, social work case manager, and therapists. More than 50 % of time was spent on patient/family counseling or coordination ofcare. hollis and I formulated the plan of care and facilitated the medical decision making. I reviewed the history and the relevant portions of the chart, including currentorders, allied health and senior treasury consultant notes, labs/imaging and plan of care as above. Documented By: Romy Leon APRN 02/01/25 1 259 Signed By: 02/01/25 1317 02/01/25 1447 [place]03-06-2025 Consult note Author Bartolome Amezquita [place] Note Date/Time January 31, 2025 2:46 pm [facility] [address] [address] Neurology Consult Note Signed Patient: Bailee Traore MR#: [id number] : 1945 Acct:[id number] Age/Sex: 79 / M Adm Date: 5 Loc: Room: [address] [place] [address] Type: ADM IN Attending Dr: Omkar Louie MD Copies to: DO Omkar Garcia MD Kelly Ramey, DO~ HPI Consult Date: 01/31/25 Swimming Pool Maintenance: Bartolome Amezquita DO [facility] Medical History Thyroid disorder Problem List clean-up [...] signed by Bartolome Amezquita DO> 01/31/25 1546 [facility] Work Phone: 1(175) 214-200103-06-2025 Consult [place] [id number] Neurology Consult Note Signed Patient: Bailee Traore MR#: [id number] : 1945 Acct:[id number] Age/Sex: 79 / M Adm Date: 5 Loc: Room: [address] [place] [address] Type: ADM IN Attending Dr: Omkar Louie MD Copies to: DO Omkar Garcia MD Kelly Ramey, DO~ HPI Consult Date: 01/31/25 Swimming Pool Maintenance: Bartolome Amezquita DO [facility] Medical History Thyroid disorder Problem List clean-up [...] DO 01/31/25 1533 Signed By: 01/31/25 1546 [place]03-06-2025 History and physical note Author Omkar Louie [place] Note Date/Time January 31, 2025 9:39 am [facility] [address] [place] [address] Physiatry (Rehab) H&P Signed Patient: Bailee Traore MR#: [id number] : 1945 Acct:[id number] Age/Sex: 79 / M Adm Date: 5 Loc: Room: [address] [place] [address] Type: ADM IN Attending Dr: Omkar Louie [...] feet and a little bit foggy . [facility] Medical History Thyroid disorder Problem List clean-up [...] Bisacodyl (Bisacodyl 10 Mg Supp.Rect) 10 mg [place] DAILY PRN PRN Reason: Constipation Stop: 01/30/26 21:02 Docusate Sodium (Docusate 100 Mg Capsule) 100 mg PO BID PRN PRN Reason: Constipation Stop: 01/30/26 21:02 Docusate Sodium (Docusate Enema 283 Mg/5 Ml Enema) 283 mg [place] DAILY PRN PRN Reason: Constipation Stop: 01/30/26 21:02 Lactulose (Lactulose 20 Gm/30 Ml Udc) 30 gm PO DAILY PRN PRN Reason: Constipation Stop: 01/30/26 21:02 Levetiracetam (Levetiracetam 500 Mg Tablet) 1,000 mg PO BID [facility] Stop: 01/31/26 08:59 Levothyroxine Sodium (Levothyroxine 50 Mcg Tablet) 50 mcg PO DAILY.629 [facility] Stop: 01/31/26 06:29 Last Admin: 01/31/25 05:39 Dose: 50 mcg Lisinopril (Lisinopril 20 Mg Tablet) 20 mg PO DAILY [facility] Stop: 01/31/26 08:59 Metoprolol Succinate (Metoprolol Succinate 50 Mg Tab.Er.24h) 50 mg PO DAILY [facility] Stop: 01/31/26 08:59 Sennosides (Sennosides 8.6 Mg Tablet) 17.2 mg PO DAILY@12 PRN PRN Reason: If no BM in 2 days Stop: 01/31/26 11:59 Sodium Chloride (Sodium Chloride 0.9 % 10 Ml Syringe) 0 ml IV-PUSH BID [facility] Stop: 01/31/26 08:59 Exam Physical Exam [...] % (Auto) 59.2 Lymph % (Auto) 22.5 [place] % (Auto) 13.8 Eos % (Auto) 3.3 Baso % (Auto) 1.2 Nucleat RBC Rel Count 0.1 Neut # (Auto) 3.4 Lymph # (Auto) 1.3 [place] # (Auto) 0.8 Eos # (Auto) 0.2 [...] 2 weeks Expected Discharge Destination: Home Rehabilitation [facility]: 02.1 Primary Diagnosis: Nontraumatic brain injury To have patient become more independent and to return home. Medical/ Functional Prognosis: Good Anticipated Functional Outcomes/Goals and Interventions: 1.Therapy Functional Outcome/Goal: Anticipate independent for bed mobility Anticipated interventions: Physician management, PT, OT, RECORDIST, , Dietitian, RehabNursing, Case management 2. Therapy Functional Outcome/Goal: Anticipate independent for transfers Anticipated interventions: Physician management, PT, OT, RECORDIST, Case management, Dietitian, Rehab Nursing 3. Therapy Functional Outcome/Goal: Anticipate independent for ambulation Anticipated interventions: Physician management, PT, OT, RECORDIST Case management, Dietitian, Rehab Nursing 4.Therapy Functional Outcome/Goal: Anticipate independent for self-care Anticipated interventions: Physician management, PT, OT, RECORDIST, Case management, Dietitian, Rehab Nursing 5.Therapy Functional Outcome/Goal: Anticipate independent for functional communication and swallowing Anticipated interventions: Physician management, PT, OT, RECORDIST, Case management, Dietitian, Rehab Nursing Required Therapy [...] additional therapy on as needed basis. Comments: RECORDIST to evaluate and treat patient?s cognition, language and communication skills, assess swallow function. Other: Dietitian, Rehab nursing, Wound, P&O, Neuropsychology as needed RATIONALE FOR IRF ADMISSION: Patient has both medical and functional complexities that require 24 hour daily monitoring and intervention from Kettle Worker as well as other consulting physicians including internal medicine as well as 24 hour daily senior software architect nursing - for medical safe / optimal management. Patient requires interdisciplinary therapy team rehabilitation care including OT, PT, RECORDIST, SW, Psychology, Rehab Nursing, requires and can [...] and proper breathing techniques during functional tasks. RECORDIST to evaluate and treat patient?s cognition, language [...] equipment to enhance the patient's a functional uatsdin Encourage deep breathing exercises and incentive spirometry [...] LP? -Continue keppra, seizure precautions as ordered -RECORDIST to screen for cog/swallowing issues, MBS if [...] anticoagulated with Eliquis Functional status: Impaired, see PT/OT/RECORDIST. Discharge planning:Home in 1-2 weeks, lives home alone. I completed a substantive portion of this encounter, the medical decision makingportion of this note in its entirety, including Allied health note review, nursing note review, senior treasury consultant note review, discussion with nursing and case management, and more than 50% of my time was spent on counseling and coordination of care, time spent 55 minutes Patient was personally seen by me, Dr. Louie, on the day of encounter, within 24hours of rehab admission, reviewed the history and the relevant portions of the chart, including current orders, allied health and senior treasury consultant notes, labs/imaging and performed bender elements of exam and I formulated the plan of care and facilitated the medical decision making. Documented By: Omkar Louie MD 01/31/25 0801 Signed By: <Electronically signed by Omkar Louie MD> 01/31/25 1030 [facility] Work Phone: 1([phone]) 714-688803-06-2025 [place] [address] Physiatry (Rehab) H&P Signed Patient: Bailee Traore MR#: [id number] : 1945 Acct:[id number] Age/Sex: 79 / M Adm Date: 5 Loc: Room: [address] [place] [address] Type: ADM IN Attending Dr: Omkar Louie [...] feet and a little bit foggy . [facility] Medical History Thyroid disorder Problem List clean-up [...] Bisacodyl (Bisacodyl 10 Mg Supp.Rect) 10 mg [place] DAILY PRN PRN Reason: Constipation Stop: 01/30/26 21:02 Docusate Sodium (Docusate 100 Mg Capsule) 100 mg PO BID PRN PRN Reason: Constipation Stop: 01/30/26 21:02 Docusate Sodium (Docusate Enema 283 Mg/5 Ml Enema) 283 mg [place] DAILY PRN PRN Reason: Constipation Stop: 01/30/26 21:02 Lactulose (Lactulose 20 Gm/30 Ml Udc) 30 gm PO DAILY PRN PRN Reason: Constipation Stop: 01/30/26 21:02 Levetiracetam (Levetiracetam 500 Mg Tablet) 1,000 mg PO BID [facility] Stop: 01/31/26 08:59 Levothyroxine Sodium (Levothyroxine [...] 10 Ml Syringe) 0 ml IV-PUSH BID [facility] Stop: 01/31/26 08:59 Exam Physical Exam [...] % (Auto) 59.2 Lymph % (Auto) 22.5 [place] % (Auto) 13.8 Eos % (Auto) 3.3 Baso % (Auto) 1.2 Nucleat RBC Rel Count 0.1 Neut # (Auto) 3.4 Lymph # (Auto) 1.3 [place] # (Auto) 0.8 Eos # (Auto) 0.2 [...] mobility Anticipated interventions: Physician management, PT, OT, RECORDIST, , Dietitian, RehabNursing, Case management 2. Therapy Functional Outcome/Goal: Anticipate independent for transfers Anticipated interventions: Physician management, PT, OT, RECORDIST, Case management, Dietitian, Rehab Nursing 3. Therapy Functional Outcome/Goal: Anticipate independent for ambulation Anticipated interventions: Physician management, PT, OT, RECORDIST Case management, Dietitian, Rehab Nursing 4.Therapy Functional Outcome/Goal: Anticipate independent for self-care Anticipated interventions: Physician management, PT, OT, RECORDIST, Case management, Dietitian, Rehab Nursing 5.Therapy Functional Outcome/Goal: Anticipate independent for functional communication and swallowing Anticipated interventions: Physician management, PT, OT, RECORDIST, Case management, Dietitian, Rehab Nursing Required Therapy [...] additional therapy on as needed basis. Comments: RECORDIST to evaluate and treat patient?s cognition, language and communication skills, assess swallow function. Other: Dietitian, Rehab nursing, Wound, P&O, Neuropsychology as needed RATIONALE FOR IRF ADMISSION: Patient has both medical and functional complexities that require 24 hour daily monitoring and intervention from Kettle Worker as well as other consulting physicians including internal medicine as well as 24 hour daily senior software architect nursing - for medical safe / optimal manageme nt. Patient requires interdisciplinary therapy team rehabilitation care including OT, PT, RECORDIST, SW, Psychology, Rehab Nursing, requires and can [...] and proper breathing techniques during functional tasks. RECORDIST to evaluate and treat patient?s cognition, language [...] equipment to enhance the patient's a functional uatsdin Encourage deep breathing exercises and incentive spirometry [...] LP? -Continue keppra, seizure precautions as ordered -RECORDIST to screen for cog/swallowing issues, MBS if [...] anticoagulated with Eliquis Functional status: Impaired, see PT/OT/RECORDIST. Discharge planning:Home in 1-2 weeks, lives home alone. I completed a substantive portion of this encounter, the medical decision makingportion of this note in its entirety, including Allied health note review, nursing note review, senior treasury consultant note review,discussion with nursing and case management, and more than 50% of my time was spent on counseling and coordination of care, time spent 55 minutes Patient was personally seen by me, Dr. Louie, on the day of encounter, within 24hours of rehab admission, reviewed the history and the relevant portions of the chart, including current orders, alliedhealth and senior treasury consultant notes, labs/imaging and performed bender elements of exam and I formulated the plan of care and facilitated the medical decision making. Documented By: Omkar Louie MD 01/31/25800 Signed By: 01/31/25 1039 [place]03-05-2025 Progress note Author Bartolome Amezquita [place] Note Date/Time January 30, 2025 3:48 pm [facility] [address] [place] [address] Neurology Progress Note Signed Patient: Bailee Traore MR#: [id number] : 1945 Acct:[id number] Age/Sex: 79 / M Adm Date: 5 Loc: Room: [address] [place] [address] Type: ADM IN Attending Dr: Kofi Mauricio [...] Unit Location PT Recommendations PT Recommended Discharge Group Home Facility,Inpatient Rehab Unit Location PT Recommended [...] <Electronically signed by Bartolome Amezquita DO> 01/30/258 [facility] Work Phone: 1(268) 777-662603-05-2025 Discharge summary Author Kofi Mauricio [place] Note Date/Time January 30, 2025 3:35 pm [facility] [address] [address] Discharge Summary Signed Patient: Bailee Traore MR#: [id number] : 1945 Acct:[id number] Age/Sex: 79 / M Adm Date: 5 Loc: Room: [address] [place] [address]: Kofi Mauricio MD Copies to: [...] occlusion. Emergency room doctor discussed case with [place] [facility] and CT perfusion study was [...] Discharge Plan Discharge Plan Patient Disposition: Rehab [facility] Activity: Ambulate as Tolerated Diet: Other Comment: [...] Continuity of Care Document Health Concerns: A [place] screening has identified you as FRAIL or [...] Four Ways to Beat the Frailty Risk https://www.[facility].org/health/nflubdxt-ked-dqodewuejl/zwuu-cvopnp-qaoh- vbwr-oq-nhgv-nfj-aqnynwf-ujvq Exam Physical Exam Vital Signs: Temp Pulse [...] <Electronically signed by Kofi Mauricio MD> 01/30/25 2457 [facility] Work Phone: 1(557) 794-280003-05-2025 [place] [address] Neurology Progress Note Signed Patient: Bailee Traore MR#: [id number] : 1945 Acct:[id number] Age/Sex: 79 / M Adm Date: 5 Loc: Room: [address] [place] [address] Type: ADM IN Attending Dr: Kofi Mauricio [...] Unit Location PT Recommendations PT Recommended Discharge Group Home Facility,Inpatient Rehab Unit Location PT Recommended [...] Amezquita DO 01/30/251644 Signed By: 01/30/25 1648 [place]03-05-2025 [place] [address] Discharge Summary Signed Patient: Bailee Traore MR#: [id number] : 1945 Acct:[id number] Age/Sex: 79 / M Adm Date: 5 Loc: Room: [address] [place] [address]: Kofi Mauricio MD Copies to: [...] Consult to Physiatry Routine Comment: Consulting Provider: [facility] - Phys Med - Rehab Reason For [...] occlusion. Emergency room doctor discussed case with [place] [facility] and CT perfusion study was [...] Discharge Plan Discharge Plan Patient Disposition: Rehab [facility] Activity: Ambulate as Tolerated Diet: Other Comment: [...] Continuity of Care Document Health Concerns: A [place] screening has identified you as FRAIL or [...] Strong:Four Ways to Beat the Frailty Risk https://www.[facility].org/health/efutftaq-kqg-oyddrjplcj/st ju-tzflrb-jwwz- hkyl-yb-zlnc-dge-uuttcyw-bgya Exam Physical Exam Vital Signs: Temp Pulse [...] 01/30/25 16 18 Signed By: 01/30/25 1635 [place]03-04-2025 Radiology Diagnostic study note [facility] [place] [address] [place], [place] [address] CT Scan Report Signed Patient: Bailee Traore MR#: [id number] : 1945 Acct:[id number] Age/Sex: 79 / M ADM Date: 5 Loc: Room: [address] [place] [address] Type: ADM IN Attending Dr: Kofi Mauricio MD Copies to: DO Kofi Garcia MD~ Ordering Provider: Bartolome Amezquita DO Date of Service: 01/29/25 CT/CT chest w con: possible brain neoplasms ([id number]) CT/CT abdomen pelvis w con: possible brain [...] Christiano Salinas M.D.01/29/2025 7:48 PM Dictation Location: [place] [address] Transcribed By: ROSA 01/29/251947 Dictated By: Christiano Salinas MD 01/29/251940 Signed By: 01/29/251947 [place] Work Phone: 1(594) 846-971303-04-2025 Progress note Author Bartolome Amezquita [place] Note Date/Time January 29, 2025 3:03 pm [facility] [address] [place] [address] Neurology Progress Note Signed Patient: Bailee Traore MR#: [id number] : 1945 Acct:[id number] Age/Sex: 79 / M Adm Date: 5 Loc: Room: [address] [place] [address] Type: ADM IN Attending Dr: Kofi Mauricio [...] Unit Location PT Recommendations PT Recommended Discharge Group Home Facility,Inpatient Rehab Unit Location PT Recommended [...] signed by Bartolome Amezquita DO> 01/29/25 1603 [facility] Work Phone: 1([phone] [address] Neurology Progress Note Signed Patient: Bailee Traore MR#: [id number] : 1945 Acct:[id number] Age/Sex: 79 / M Adm Date: 5 Loc: Room: [address] [place] [address] Type: ADM IN Attending Dr: Kofi Mauricio [...] Unit Location PT Recommendations PT Recommended Discharge Group Home Facility,Inpatient Rehab Unit Location PT Recommended [...] DO 01/29/25 1540 Signed By: 01/29/25 1603 [place]03-04-2025 Progress note Author Kofi Mauricio [place] Note Date/Time January 29, 2025 12:2 4pm [facility] [address] [place] [address] Hospitalist Progress Note Signed Patient: Bailee Traore MR#: [id number] : 1945 Acct:[id number] Age/Sex: 79 / M Adm Date: 5 Loc: Room: [address] [place] [address] Type: ADM IN Attending Dr: Kofi Mauricio [...] [facility], but he is not close with [...] <Electronically signed by Kofi Mauricio MD> 01/29/25 [facility] Work Phone: [phone] [place] [address] Hospitalist Progress Note Signed Patient: Bailee Traore MR#: [id number] : 1945 Acct:[id number] Age/Sex: 79 / M Adm Date: 5 Loc: Room: [address] [place] [address] Type: ADM IN Attending Dr: Kofi Mauricio [...] 01/29/25 13 14 Signed By: 01/29/25 1324 [place]03-03-2025 Progress note Author Bartolome Amezquita [place] Note Date/Time January 28, 2025 4:42 pm [facility] [address] [place] [address] Neurology Progress Note Signed Patient: Bailee Traore MR#: [id number] : 1945 Acct:[id number] Age/Sex: 79 / M Adm Date: 5 Loc: Room: [address] [place] [address] Type: ADM IN Attending Dr: Kofi Mauricio [...] Unit Location PT Recommendations PT Recommended Discharge Group Home Facility,Inpatient Rehab Unit Location PT Recommended [...] Plan Documented By: Bartolome Amezquita DO 01/28/25 3577 Signed By: <Electronically signed by Bartolome Amezquita DO> 01/28/25 4248 [facility] Work Phone: 1(586) 162-484603-03-2025 [place] [address] Neurology Progress Note Signed Patient: Bailee Traore MR#: [id number] : 1945 Acct:[id number] Age/Sex: 79 / M Adm Date: 5 Loc: Room: [address] [place] [address] Type: ADM IN Attending Dr: Kofi Mauricio [...] Unit Location PT Recommendations PT Recommended Discharge Group Home Facility,Inpatient Rehab Unit Location PT Recommended [...] Plan Documented By: Bartolome Amezquita DO 01/28/25 9115 Signed By: 01/28/25 7996 [place]03-03-2025 Progress note Author Kofi Mauricio [place] Note Date/Time January 28, 2025 2:07 pm [facility] [address] [place] [address] Hospitalist Progress Note Signed Patient: Bailee Traore MR#: [id number] : 1945 Acct:[id number] Age/Sex: 79 / M Adm Date: 5 Loc: Room: [address] [place] [address] Type: ADM IN Attending Dr: Kofi Mauricio [...] <Electronically signed by Kofi Mauricio MD> 01/28/25 1503 [facility] Work Phone: 1(996) 658-137603-03-2025 Consult note Author Oren Lara [place] Note Date/Time January 28, 2025 12:3 8pm [facility] [address] [place] [address] Physiatry (Rehab) Consult Note Signed Patient: Bailee Traore MR#: M [id number] : 1945 Acct:[id number] Age/Sex: 79 / M Adm Date: 5 Loc: Room: [address] [place] [address] Type: ADM IN Attending Dr: Kofi Mauricio [...] independent prior to presentation. Lives alone. 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 He has been noticing that he is having abnormal movements. Documented possible hemiballismus. I discussed IRF with the patient. He is agreeable. Review of Systems Review of Systems All other systems reviewed & are negative unless noted below or in [facility] Medical History Thyroid disorder Problem List clean-up per request of Phys. EHR [facility] HTN (hypertension) Problem List clean-up [facility] Surgical History Hx of knee surgery Problem List clean-up per request of Phys. [facility] Social History Smoking Status: Former smoker Tobacco [...] % (Auto) 57.6 Lymph % (Auto) 27.6 [place] % (Auto) 11.6 Eos % (Auto) 2.0 Baso % (Auto) 1.2 Nucleat RBC Rel Count 0.1 Neut # (Auto) 3.7 Lymph # (Auto) 1.8 [place] # (Auto) 0.7 Eos # (Auto) 0.1 [...] impaired independence with ADLs and IADLs requiring PT/OT/RECORDIST 5-7 days/week 3 hours/day to maximize safety [...] supervision is both reasonable and necessary, including qqlg-wn-jdkq visits at least 3 days/week with the [...] chart, including current orders, allied health and senior treasury consultant notes, labs/imaging and performed bender elements of exam and I formulated the plan of care and facilitated the medical decision making. I completed a substantive portion of this encounter, the medical decision making portion of this note in its entirety, including Allied health note review, nursing note review, senior treasury consultant note review, discussion with nursing and case management, and more than 50% of my time was spent on counseling and coordination of care, time spent 50 minutes Documented By: Oren Lara MD 1303 Signed By: <Electronically signed by Oren Lara MD> 01/28/25 1339 [facility] Work Phone: 1(483) 624-419803-03-2025 Consult note Author Jayme Pearce [place] Note Date/Time January 28, 2025 12:3 2pm [facility] [address] [place] [address] Cardiology Consult Note Signed Patient: Bailee Traore MR#: M [id number] : 1945 Acct:[id number] Age/Sex: 79 / M Adm Date: 5 Loc: Room: [address] [place] [address] Type: ADM IN Attending Dr: Kofi Mauricio MD Copies to: MD Lucille Wright DO Obaydah M Daromar, MD~ Cardiology HPI History of Present Illness Consult Date: 01/28/25 HPI: Mr. Traore is a 79yo M with the H below who presented to [facility] on 01/27/25 after being found down. He reportedly pressed some sort of life alert button andEMS was called and he was found slumped over on the toilet. Patient is typicallyactive at home, lives alone in an apartment, drives runs [employer] meetings and performs all of his ADLs. [...] negative unless noted below or in HPI [facility] Medical History Thyroid disorder Problem List clean-up per request of Phys. [facility] HTN (hypertension) Problem List clean-up per request of Phys. [facility] Surgical History Hx of knee surgery Problem [...] x10E3/uL Lymph # (Auto) 1.8 (1.00-4.8) x10E3/uL [place] # (Auto) 0.7 (0.0-0.8) x10E3/uL Eos # [...] <Electronically signed by Jayme Pearce MD> 01/28/25 9370 [facility] Work Phone: 1(302) 644-195303-03-2025 [place] [address] Hospitalist Progress Note Signed Patient: Bailee Traore MR#: M [id number] : 1945 Acct:[id number] Age/Sex: 79 / M Adm Date: 5 Loc: Room: [address] [place] [address] Type: ADM IN Attending Dr: Kofi Mauricio [...] [facility], but he is not close with them. Patient's friend Mirza does have contact details of his family members DVT Ppx: Full-dose Lovenox Discussed with patient Documented By: Kofi Mauricio MD 01/28/2512 12 Signed By: 01/28/25 1507 [place]03-03-2025 [place] [address] Physiatry (Rehab) Consult Note Signed Patient: Bailee Traore MR#: M [id number] : 1945 Acct:[id number] Age/Sex: 79 / M Adm Date: 5 Loc: Room: [address] [place] [address] Type: ADM IN Attending Dr: Kofi Mauricio [...] independent prior to presentation. Lives alone. 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 Hehas been noticing that he is having abnormal movements. Documented possible hemiballismus. I discussed IRF with the patient. He is agreeable. Review of Systems Review of Systems All other systems reviewed & are negative unless noted below or in HPI [facility] Medical History Thyroid disorder Problem List clean-up per request of Phys. [facility] HTN (hypertension) Problem List clean-up per request of Phys. [facility] Surgical History Hx of knee surgery Problem List clean-up per request of Phys. EHR [facility] Social History Smoking Status: Former smoker [...] % (Auto) 57.6 Lymph % (Auto) 27.6 [place] % (Auto) 11.6 Eos % (Auto) 2.0 Baso % (Auto) 1.2 Nucleat RBC Rel Count 0.1 Neut # (Auto) 3.7 Lymph # (Auto) 1.8 [place] # (Auto) 0.7 Eos # (Auto) 0.1 [...] impaired independence with ADLs and IADLs requiring PT/OT/RECORDIST 5-7 days/week 3 hours/day to maximize safety [...] supervision is both reasonable and necessary, including ubba-va-usrb visits at least 3 days/week with the [...] chart, including current orders, allied health and senior treasury consultant notes, labs/imaging and performed bender elements of exam and I formulated the plan of care and facilitated the medical decision making. I completed a substantive portion of this encounter, the medical decision making portion of this note in its entirety, including Allied health note review, nursing note review, senior treasury consultant note review, discussion with nursing and case management, and more than 50% of my time was spent on counseling and coordination of care, time spent 50 minutes Documented By: Oren Lara MD 1303 Signed By: 01/28/25 1338 [place]03-03-2025 [place] [address] Cardiology Consult Note Signed Patient: Bailee Traore MR#: M [id number] : 1945 Acct:[id number] Age/Sex: 79 / M Adm Date: 5 Loc: Room: [address] [place] [address] Type: ADM IN Attending Dr: Kofi Mauricio MD Copies to: MD Lucille Wright DO Obaydah M Daromar, MD~ Cardiology HPI History of Present Illness Consult Date: 01/28/25 HPI: Mr. Traore is a 79yo M with the PMH below who presented to [facility] on 01/27/25 after being found down. He reportedly pressed some sort of life alert button andEMS was called and he was found slumpedover on the toilet. Patient is typicallyactive at home, lives alone in an apartment, drives runs [employer] and performs all of his ADLs. He [...] negative unless noted below or in HPI [facility] Medical History Thyroid disorder Problem List clean-up per request of [facility] HTN (hypertension) Problem List clean-up per request of [facility]. [facility] Surgical History Hx of knee surgery Problem List clean-up per request of [facility]. [facility] Social History Smoking Status: Former smoker [...] x10E3/uL Lymph # (Auto) 1.8 (1.00-4.8) x10E3/uL [place] # (Auto) 0.7 (0.0-0.8) x10E3/uL Eos # [...] Pearce MD 02/19 Signed By: 01/28/25 1332 [place]03-02-2025 Progress note Author Bennett Navarro [place] Note Date/Time January 27, 2025 5:35 pm [facility] [address] [place] [address] Hospitalist Progress Note Signed Patient: Bailee Traore MR#: M [id number] : 1945 Acct:[id number] Age/Sex: 79 / M Adm Date: Loc: Room: [address] [place] [address] Type: ADM IN Attending Dr: Bennett Navarro [...] signed by Bennett Navarro MD> 01/27/25 1835 [facility] Work Phone: 1(501) 957-515303-02-2025 [place] [address] Hospitalist Progress Note Signed Patient: Bailee Traore MR#: [id number] : 1945 Acct:[id number] Age/Sex: 79 / M Adm Date: 5 Loc: Room: [address] [place] [address] Type: ADM IN Attending Dr: Bennett Navarro [...] 500 Mg Tablet PO 01/27/26 20:59 BID [facility] Lorazepam 1 mg 01/26/25 16:47 Lorazepam [...] [facility], but he is not close with them. Patient's friend Mirza does have contact details of his family members DVT Ppx: Full-dose Lovenox Documented By: Bennett Navarro MD 5 1756 Signed By: 01/27/[address] [place], [place] 1940503-02-2025 Consult note Author Lady Parks [place] Note Date/Time January 27, 2025 11:0 0am [facility] [address] [place] [address] Neurology Consult Note Signed Patient: Bailee Traore MR#: M [id number] : 1945 Acct:[id number] Age/Sex: 79 / M Adm Date: 5 Loc: Room: [address] [place] [address] Type: ADM IN Attending Dr: Bennett Navarro MD Copies to: MD Lucille Magana DO Nicole J Danner, DO~ HPI Consult Date: 01/27/25 Swimming Pool Maintenance: Lady Parks DO Reason for consult: stroke and seizure Consult Narrative HPI: 79-year-old male being seen in neurology consultation at the [facility]. Patient was admitted to the emergency room. [...] alone on an apartment. He reportedly pressed [employer] alert button and EMS was called and [...] rhythm. Emergency room doctor discussed case with [place] [facility] and CT perfusion study was [...] [facility]: Denies dizziness, Reports seizure-like activity [...] of dysmetria with good rapid alternating movements vobawi-fj-ungg Tone is physiologic however he does have [...] fibrillation and treatment Patient will need therapies cloud services architect to determine next step home versus other [...] <Electronically signed by DO Lady Parks> 01/27/[address] [place] [address] Work Phone: 1(926) 484-502603-02-[address] [address] Neurology Consult Note Signed Patient: Bailee Traore MR#: [id number] : 1945 Acct:[id number] Age/Sex: 79 / M Adm Date: 5 Loc: Room: [address] [place] [address] Type: ADM IN Attending Dr: Bennett Navarro MD Copies to: MD Lucille Magana DO Nicole J Danner, DO~ HPI Consult Date: 01/27/25 Swimming Pool Maintenance: Lady Parks DO Reason for consult: stroke and seizure Consult Narrative HPI: 79-year-old male being seen in neurology consultation at the [facility]. Patient was admitted to the emergency room. He was found down at home. Patient is typically active at home drives runs [employer] meetings and performsall of his ADLs. He [...] he got [facility]: Denies dizziness, Reports seizure-like activity [...] of dysmetria with good rapid alternating movements vktflr-bw-frag Tone is physiologic however he does have [...] fibrillation and treatment Patient will need therapies cloud services architect to determine next step home versus other [...] Parks DO 01/27/25 0951 Signed By: 01/27/[address] [place], [place] 1430103-01-2025 History and physical note Author Bennett Navarro [place] Note Date/Time January 26, 2025 4:45 pm [facility] [address] [place] [address] Hospitalist H&P Signed Patient: Bailee Traore MR#: M [id number] : 1945 Acct:[id number] Age/Sex: 79 / M Adm Date: 5 Loc: Room: [address] [place] [address] Type: ADM IN Attending Dr: Bennett Navarro [...] occlusion. Emergency room doctor discussed case with [place] [facility] care and CT perfusion study was [...] that which is noted above in HPI [facility] Medical History HTN (hypertension) Thyroid disorder Surgical [...] % (Auto) 46.6 % (.) 01/26/25 07:40 [place] % (Auto) 11.5 % (.) 01/26/25 07:40 Eos % (Auto) 3.6 % (.) 01/26/25 07:40 Baso % (Auto) 1.4 % (.) 01/26/25 07:40 Nucleat RBC Rel Count 0.2 /100 WBC (0-0.5) 01/26/25 07:40 Neut # (Auto) 2.5 x10E3/uL (1.8-7.7) 01/26/25 07:40 Lymph # (Auto) 3.2 x10E3/uL (1.00-4.8) 01/26/25 07:40 [place] # (Auto) 0.8 x10E3/uL (0.0-0.8) 01/26/25 07:40 [...] pH 6.5 (5.0-9.0) 01/26/25 11:25 Ur Specific [place] 1.039 (1.001-1.030) H 01/26/25 11:25 Urine Protein [...] are older than him that lives in [place]. Patient's friend Mirza does have contact details [...] 4 Documented By: Bennett Navarro MD 5 7908 Signed By: <Electronically signed by Bennett Navarro MD> 01/26/25 6038 [facility] Work Phone: 1(202) 252-913503-01-2025 [place] [address] Hospitalist H&P Signed Patient: Bailee Traore MR#: M [id number] : 1945 Acct:[id number] Age/Sex: 79 / M Adm Date: 5 Loc: Room: [address] [place] [address] Type: ADM IN Attending Dr: Bennett Navarro [...] occlusion. Emergency room doctor discussed case with [place] [facility] and CT perfusion study was [...] that which is noted above in HPI [facility] Medical History HTN (hypertension) Thyroid disorder Surgical [...] % (Auto) 46.6 % (.) 01/26/25 07:40 [place] % (Auto) 11.5 % (.) 01/26/25 07:40 Eos % (Auto) 3.6 % (.) 01/26/25 07:40 Baso % (Auto) 1.4 % (.) 01/26/25 07:40 Nucleat RBC Rel Count 0.2 /100 WBC (0-0.5) 01/26/25 07:40 Neut # (Auto) 2.5 x10E3/uL (1.8-7.7) 01/26/25 07:40 Lymph # (Auto) 3.2 x10E3/uL (1.00-4.8) 01/26/25 07:40 [place] # (Auto) 0.8 x10E3/uL (0.0-0.8) 01/26/25 07:40 [...] pH 6.5 (5.0-9.0) 01/26/25 11:25 Ur Specific [place] 1.039 (1.001-1.030) H 01/26/25 11:25 Urine Protein [...] are older than him that lives in [place]. Patient's friend Mirza does have contact details [...] MD 5 1654 Signed By: 01/26/25 1745 [place]03-01-2025 Evaluation note* Diagnosis Onset Date Resolution Status Admit Date Atrial fibrillation with RVR acute January 26, 2025 12:51pm Seizure acute January 26 12:51pm Stroke acute January 26 12:51pm [facility] Work Phone: 1(174) 418-721803-01-2025 Evaluation note* Diagnosis Onset Date Resolution Status [...] 2025 12:51pm Stroke acute January 26 12:51pm [facility] Work Phone: 1([phone]) 522-517503-01-2025 Evaluation note* Diagnosis Onset Date Resolution Status [...] motor inacti ve January 30, 2025 8:45pm [facility] Work Phone: 1(233) 744-246803-01-2025 Evaluation note* Diagnosis Onset Date Resolution Status [...] 30, 2025 8:45pm Coronary artery disease involving [place] coronary artery of [place] heart wi acute April 17 12:51pm HTN (hypertension) acute April 172024 12:51pm Hyperlipidemia acute April 17, 2025 12:51pm Paroxysmal atrial fibrillation acute April 17, 2025 12:51pm S/P coronary artery stent placement acute April 17, 2025 1 2:51pm [facility] Work Phone: 1(861) 793-360203-01-2025 [facility]iology [facility] [place] [address] [address] CT Scan Report Signed Patient: Bailee Traore MR#: Denia [id number] : 1945 Acct:[id number] Age/Sex: 79 / M ADM Date: 5 Loc: ER Room: Type: [facility] ER Attending Dr: Copies to: Nikos Lao [...] Combs Jr., D.O.01/26/2025 1:01 PM Dictation Location: [place] [address] Transcribed By: [facility] 01/26/25 1301 Dictated By: Omkar Combs Jr, DO 01/26/25 1255 Signed By: 01/26/25 1301 [place]03-01-2025 Radiology Diagnostic study note [facility] Main [place] [address] [place] [address] CT Scan Report Signed Patient: Bailee Traore MR#: [id number] : 1945 Acct:[id number] Age/Sex: 79 / M ADM Date: 5 Loc: ER Room: Type: [facility] ER Attending Dr: Copies to: Nikos Lao [...] Combs Jr., D.OYuni01/26/2025 1:01 PM Dictation Location: [facility]--18 Transcribed By: ROSA 01/26/25 1301 Dictated By: Omkar Combs Jr, DO 01/26/25 1255 Signed By: 01/26/25 1301 [place]03-01-2025 Radiology Diagnostic study note [facility] [place] [address] CT Scan Report Signed Patient: Bailee Traore MR#: [id number] : 1945 Acct:[id number] Age/Sex: 79 / M ADM Date: 5 [...] Emmanuel Grijalva M.D.01/26/2025 10:54 AM Dictation Location: [place] [address] Transcribed By: [facility] 01/26/25 1054 Dictated By: Emmanuel Grijalva II, MD 01/26/25 1044 Signed By: 01/26/25 1054 [place] Work Phone: 1(890) 304-864503-01-2025 Radiology [facility] Main [place] [address] [place], [place] [address] CT Scan Report Signed Patient: Bailee Traore MR#: [id number] : 1945 Acct:[id number] Age/Sex: 79 / M ADM Date: 5 [...] Emmanuel Grijalva M.D.01/26/2025 10:54 AM Dictation Location: [place] [address] Transcribed By: ROSA 01/26/25 1054 Dictated By: Emmanuel Grijalva II, MD 01/26/25 1044 Signed By: 01/26/25 1054 [place] Work Phone: 1(833) 381-605203-01-2025 Radiology [facility] Main [place] [address] [address] CT Scan Report Signed Patient: Bailee Traore MR#: Denia [id number] : 1945 Acct:[id number] Age/Sex: 79 / M ADM Date: 5 Loc: ER Room: Type: PRE ER Attending Dr: Copies to: Nikos Lao DO~ Ordering Provider: Nikos Lao DO Date of Service: 01/26/25 CT/CT angio head: weakness L ([id number]) CT/CT angio neck: L weakness ([id number]) CT/CT head stroke alert wo con: acute [...] Combs Jr., D.OYuni01/26/2025 9:04 AM Dictation Location: [facility]--18 Transcribed By: [facility] 01/26/25 0904 Dictated By: Omkar Combs Jr, DO 01/26/25 0856 Signed By: 01/26/25 0904 [place]03-01-2025 Radiology Diagnostic study note [facility] Main [place] [address] [place] [address] CT Scan Report Signed Patient: Bailee Traore MR#: [id number] : 1945 Acct:[id number] Age/Sex: 79 / M ADM Date: 5 Loc: ER Room: Type: PRE ER Attending Dr: Copies to: Nikos Lao DO~ Ordering Provider: Nikos Lao DO Date of Service: 01/26/25 CT/CT angio head: weakness L ([id number]) CT/CT angio neck: L weakness ([id number]) CT/CT head stroke alert wo con: acute [...] Combs Jr., D.O.01/26/2025 9:04 AM Dictation Location: [place] [address] Transcribed By: [facility] 01/26/25 0904 Dictated By: Omkar Combs Jr, DO 01/26/25 0856 Signed By: 01/26/25 0904 [facility] noteNo assessment information availableThe [facility] HospitalEvaluation note* Diagnosis Onset Date Resolution Status Admit Date Seizure disorder chronic Septembe r 2024 10:10am Metabolic encephalopathy resolved August 06, 2025 10:10am [facility] Work Phone: Reason for referral (narrative)No reason for referral information availableMari[facility] Work Phone: Chief Complaint and Reason for [...] pm C71.1 March 15, 2025 5:1 8pm [facility] 01/28April 17, 2025 12:51 pm Reason for [...] 2025 8:45pm Coronary artery disease invo lving [place] coronary artery of [place] heart wi April 17, 2025 12:51pm HTN [...] Role Status Dates Lucille Engel (Clinic) , [facility] Primary Care Prov ider Active Team Status: Active Member Role Status Dates Lucille Engel (Clinic) , [facility] Primary Care Provider Active Start: January 26, 2025 Nikos Lao DO Emergency Provider Active Sta rt: January 26, 2025 Bennett Navarro MD Admit Provide r, Attending Provider Active Start: January 26, 2025 Team Status: Inactive Member Role Status Dates Lucille Engel (Clinic) , [facility] Primary Care Provider Active Start: January 26, 2025 End: January 30, 2025 Nikos Lao DO Emergency Provider Active Sta rt: January 26, 2025 End: January 30, 2025 Bennett Navarro MD Admit Provider Active Start: January 26, 2025 End: January 30, 2025 Lady Parks DO Other Provider Active Start: January 26, 2025 End: January 30, 2025 Mariela Solorzano MD Other Provider Active Start: [facility] 2024 End: January 30, 2025 Omkar [...] Role Status Dates Lucille Engel (Clinic) , [facility] Primary Care Provider Active Start: January 28, 2025 Nikos Lao DO Emergency Provider Active Sta rt: January 28, 2025 Bennett Navarro MD Admit Provider Active Start: January 28, 2025 Lady Parks DO Other Provider Active Start: January 28, 2025 Savannah Melgar RN Other Provider Active Star t: January 28, 2025 Forest Sarmiento MD Other Provider Active Start: [facility] 2024 Jayme Pearce MD Other Provider Active Start: January 28 Priscilla Cuevas MD Other Provider Active Start: January 28, 2025 Mariela Solorzano MD Other Provider Active Start: [facility] 2024 Omkar Louie MD Other Provider Active Start: [facility] 2024 Romy Leon APRN Other Provider Active St art: January 28, 2025 Vito Mullins Jr, DO Other Provider Active S tart: January 28, 2025 Oren Lara MD Attending Pr ovider, Other Provider Active Start: January 28, 2025 Kofi Mauricio MD Other Provider Active Sta rt: January 28, 2025 Team Status: Active Member Role Status Dates Lucille Engel (Clinic) , [facility] Primary Care Provider Active Start: January 28, 2025 Nikos Lao DO Emergency Provider Active Sta rt: January 28, 2025 Bennett Navarro MD Admit Provider Active Start: January 28, 2025 Lady Parks DO Other Provider Active Start: January 28, 2025 Savannah Melgar RN Other Provider Active Star t: January 28, 2025 Forest Sarmiento MD Other Provider Active Start: [facility] 2024 Jayme Pearce MD Attending Provider, Other Provider Active Start: January 28, 2025 Priscilla Cuevas MD Other Provider Active Start: January 28, 2025 Mariela Solorzano MD Other Provider Active Start: [facility] 2024 Omkar Louie MD Other Provider Active Start: [facility] 2024 Romy Leon APRN Other Provider Active St art: January 28, 2025 Vito Mullins Jr, DO Other Provider Active S tart: January 28, 2025 Oren Lara MD Other Provider Active Start: January 28, 2025 Kofi Mauricio MD Other Provider Active Sta rt: January 28, 2025 Team Status: Inactive Member Role Status Dates Lucille Engel (Clinic) , [facility] Primary Care Provider Active Start: January 30, [...] End: February 15, 2025 Yesenia Kidd , BOOKKEEPER ASSISTANT-C Other Provider Active Sta rt: January 30, 2025 End: February 15, 2025 Shona Henriquez APRN-DIRECTOR OF ONLINE EDUCATION-C Other Provider Active Start: January 30, 2025 End: February 15, 2025 Telma Beth , EMILY Other Provider [...] , RN Other Provider Active Start: [facility] 2024 End: February 15, 2025 An [...] Kev Urbina MD Other Provider Active Start: [facility] 2024 End: February 15, 2025 Jillian Mendez APRN Other Provider Active Start: January 30, 2025 End: February 15, 2025 Shantelle Newton MD Other Provider Active Start: January 30, 2025 End: February 15, 2025 Alberto Jacob MD Other Provider Active Start: [facility] 2024 End: February 15, 2025 George Monsalve MD Other Provider Active Start: January 30, 2025 End: February 15, 2025 Carli Small MD Other Provider Active Start: January 30, 2025 End: February 15, 2025 Bailee Boggs DO Other Provider Active Start: January 30, 2025 End: February 15, 2025 Olya Garcia MD Other Provider Active Start: [facility] 2024 End: February 15, 2025 Ronan Michel MD Other Provider Active Start: [facility] 2024 End: February 15, 2025 Luli Oates NP-C Other Provider Active St art: January 30, 2025 End: February 15, 2025 Rosy Aguirre APRN Other Provider Active Star t: January 30, 2025 End: February 15, 2025 Bennett Navarro MD Other Provider Active Start: January 30, 2025 End: February 15, 2025 Nilesh Momin MD Other Provider Active Start: [facility] 2024 End: February 15, 2025 Gilles Gibbs MD Other Provider Active Start: [facility] 2024 End: February 15, 2025 Tatyana Drummond MD Other Provider Active Star t: January 30, 2025 End: February 15, 2025 Lizandro Corona MD Other Provider Active Start: [facility] 2024 End: February 15, 2025 Rashmi Almanzar DO Other Provider Active Start: [facility] 2024 End: February 15, 2025 Nate [...] Geo Hernandez MD Other Provider Active Start: [facility] 2024 End: February 15, 2025 Puma Miller [...] Jasiel Javier MD Other Provider Active Start: [facility] 2024 End: February 15, 2025 Faustino Payton MD Other Provider Active Start: [facility] 2024 End: February 15, 2025 Omkar Wagner MD Other Provider Active Start: January 30, 2025 End: February 15, 2025 Kev Pritchett MD Other Provider Active Start : January 30, 2025 End: February 15, 2025 Alessio Pickering MD Other Provider Active Start: [facility] 2024 End: February 15, 2025 Radha Juárez APRN Other Provider Active Sta rt: January 30, 2025 End: February 15, 2025 Jolie Benítez APRN Other Provider Active Start: January 30, 2025 End: February 15, 2025 Esmer Valverde RN Other Provider Active Start: [facility] 2024 End: February 15, 2025 Team Status: [...] Borja , EMILY Other Provider Active Start: [facility] 2024 Nivia Santana , EMILY Other Provider Active Start: [facility] 2024 An Mariano MD Other Provider [...] Kev Urbina MD Other Provider Active Start: [facility] 2024 Jillian Mendez APRN Other Provider Active Start: January 31, 2025 Shantelle Newton MD Other Provider Active Start: January 31, 2025 Alberto Jacob MD Other Provider Active Start: [facility] 2024 George Monsalve MD Other Provider Active Start: January 31, 2025 Carli Small MD Other Provider Active Start: January 31, 2025 Bailee Boggs DO Other Provider Active Start: January 31, 2025 Olya Garcia MD Other Provider Active Start: [facility] 2024 Ronan Michel MD Other Provider Active Start: Jan 2024 Luli Oates NP-Natali Other Provider Active St art: January 31, 2025 Rosy Aguirre APRN Other Provider Active Star t: January 31, 2025 Bennett Navarro MD Other Provider Active Start: January 31, 2025 Nilesh Momin MD Other Provider Active Start: [facility] 2024 Gilles Gibbs MD Other Provider Active Start: [facility] 2024 Tatyana Drummond MD Other Provider Active Star t: January 31, 2025 Lizandro Corona MD Other Provider Active Start: [facility] 2024 Rashmi Almanzar DO Other Provider Active Start: [facility] 2024 Nate Adkins , Other Provider [...] Geo Hernandez MD Other Provider Active Start: [facility] 2024 Puma Miller MD Other Provider Active [...] Jasiel Javier MD Other Provider Active Start: [facility] 2024 Faustino Payton MD Other Provider Active Start: [facility] 2024 Omkar Wagner MD Other Provider Active Start: January 31, 2025 Kev Pricthett MD Other Provider Active Start : January 31, 2025 Alessio Pickering MD Other Provider Active Start: [facility] 2024 Radha Juárez APRN Other Provider Active Sta rt: January 31, 2025 Jolie Benítez APRN Other Provider Active Start: January 31, 2025 Esmer Valverde RN Other Provider Active Start: [facility] 2024 Dorita Mazariegos Other Provider Active Start: [...] Sta rt: January 31, 2025 Shona Henriquez MANAGER ADMINISTRATION-DIRECTOR OF ONLINE EDUCATION-C Other Provider Active Start: January 31, 2025 Team Status: Active Member Role Status Dates [facility]el (Clinic) , [facility] Primary Care Provider Active Start: February 07, 2025 Omkar Louie MD Admit Provider, Atte mding Provider, Other Provider Active Start: February 07, [...] Sta rt: February 07, 2025 Shona Henriquez MANAGER ADMINISTRATION-DIRECTOR OF ONLINE EDUCATION-C Other Provider Active Start: February 07, 2025 Telma Beth , EMILY Other Provider Active Star t: February 07, 2025 Soraya Baron , EMILY Other Provider Active Start : February 07, 2025 Sandy Oquendo , EMILY Other Provider Active Star t: February 07, 2025 Ksenia Borja , EMILY Other Provider Active Start: javier 2024 Nivia Santana RN Other Provider Active Start: [facility] 2024 An Mariano MD Other Provider [...] Kev Urbina MD Other Provider Active Start: [facility] 2024 Jillian Mendez APRN Other Provider Active Start: February 07, 2025 Shantelle Newton MD Other Provider Active Start: February 07, 2025 Alberto Jacob MD Other Provider Active Start: [facility] 2024 George Monsalve MD Other Provider Active Start: February 07, 2025 Carli Small MD Other Provider Active Start: February 07, 2025 Bailee Boggs DO Other Provider Active Start: February 07, 2025 Olya Garcia MD Other Provider Active Start: [facility] 2024 Ronan Michel MD Other Provider Active Start: [facility] 2024 Luli Oates , BOOKKEEPER ASSISTANT-C Other Provider Active St art: February 07, 2025 Rosy Aguirre APRN Other Provider Active Star t: February 07, 2025 Bennett Navarro MD Other Provider Active Start: February 07, 2025 Nilesh Momin MD Other Provider Active Start: [facility] 2024 Gilles Gibbs MD Other Provider Active Start: [facility] 2024 Tatyana Drummond MD Other Provider Active Star t: February 07, 2025 Lizandro Corona MD Other Provider Active Start: [facility] 2024 Rashmi Almanzar , Other Provider Active Start: [facility] 2024 Nate Adkins , Other Provider Active Start : February 07, 2025 Priscilla Rock APRN Other Provider Active Start: February 07, 2025 John Nolan DO Other Provider Active Start: February 07, 2025 Kofi Mauricio MD Other Provider Active Sta rt: February 07, 2025 Theresa Mireles APRN Other Provider Active Start : February 07, 2025 Rin Kellogg , MANAGER ADMINISTRATION Other Provider Active St art: February 07, 2025 Geo Hernandez MD Other Provider Active Start: [facility] 2024 Puma Miller MD Other Provider Active [...] Jasiel Javier MD Other Provider Active Start: [facility] 2024 Faustino Payton MD Other Provider Active Start: [facility] 2024 Omkar Wagner MD Other Provider Active Start: February 07, 2025 Kev Pritchett MD Other Provider Active Start : February 07, 2025 Alessio Pickering MD Other Provider Active Start: [facility] 2024 Radha Juárez APRN Other Provider Active Sta rt: February 07, 2025 Jolie Benítez APRN Other Provider Active Start: February 07, 2025 Esmer Valverde RN Other Provider Active Start: [facility] 2024 Team Status: Active Member Role Status Dates [facility] (Clinic) , [facility] Primary Care Provider Active Start: February 14, 2025 Omkar Louie MD Admit Provider, Atte mding Provider, Other Provider Active Start: February 14, [...] rt: February 14, 2025 Shona Henriquez , MANAGER ADMINISTRATION-DIRECTOR OF ONLINE EDUCATION-C Other Provider Active Start: February 14, 2025 Telma Beth , EMILY Other Provider Active Star t: February 14, 2025 Soraya Baron , EMILY Other Provider Active Start : February 14, 2025 Sandy Oquendo , EMILY Other Provider Active Star t: February 14, 2025 Ksenia Borja RN Other Provider Active Start: [facility] 2024 Nivia Santana RN Other Provider Active Start: [facility] 2024 An Mariano MD Other Provider [...] Kev Urbina MD Other Provider Active Start: [facility] 2024 Jillian Mendez APRN Other Provider Active Start: February 14, 2025 Shantelle Newton MD Other Provider Active Start: February 14, 2025 Alberto Jacob MD Other Provider Active Start: [facility] 2024 George Monsalve MD Other Provider Active Start: February 14, 2025 Carli Small MD Other Provider Active Start: February 14, 2025 Bailee Boggs DO Other Provider Active Start: February 14, 2025 Olya Garcia MD Other Provider Active Start: [facility] 2024 Ronan Michel MD Other Provider Active Start: [facility] 2024 CARY Rubio Other Provider Active St art: February 14, 2025 Rosy Aguirre APRN Other Provider Active Star t: February 14, 2025 Bennett Navarro MD Other Provider Active Start: February 14, 2025 Nilesh Momin MD Other Provider Active Start: [facility] 2024 Gilles Gibbs MD Other Provider Active Start: [facility] 2024 Tatyana Drummond MD Other Provider Active Star t: February 14, 2025 Lizandro Corona MD Other Provider Active Start: [facility] 2024 Rashmi Almanzar , Other Provider Active Start: [facility] 2024 Nate Adkins , Other Provider [...] Geo Hernandez MD Other Provider Active Start: [facility] 2024 Puma Miller MD Other Provider Active [...] Jasiel Javier MD Other Provider Active Start: [facility] 2024 Faustino Payton MD Other Provider Active Start: [facility] 2024 Omkar Wagner MD Other Provider Active Start: February 14, 2025 Kev Pritchett MD Other Provider Active Start : February 14, 2025 Alessio Pickering MD Other Provider Active Start: [facility] 2024 Radha Juárez APRN Other Provider Active Sta rt: February 14, 2025 Jolie Benítez APRN Other Provider Active Start: February 14, 2025 Esmer Valverde RN Other Provider Active Start: [facility] 2024 Team Status: Inactive Member Role Status [...] 2025 End: August 06, 2025 Shona Henriquez MANAGER ADMINISTRATION-DIRECTOR OF ONLINE EDUCATION-C Attending Provider Active Start: August 06, 2025 End: August 06, 2025 (unrecognized sect ion and content) No Status Records FoundNo Status Records Found INFORMATION SOURCE (unrecogn ized section and content) DATE CREATED AUTHOR 06/07/2025 [facility] DATE CREATED AUTHOR AUTHOR'S ORGANIZ ATION 09/06/2025 [facility] FOR RECORDS PERTAINING TO PATIENTS [...] BE BASED ON THE PRIMARY CLINICAL RECORDS. [employer] provides no warranty or guarantee of the accuracy or completeness of information in this document.
[2025-09-11] MEDS: TAMSULOSIN HCL 0.4 MG CAPSULE PO (17:40)
[2025-09-11] MEDS: MORPHINE SULFATE 2 MG/ML SYRINGE IV (17:55)
[2025-09-11 19:46] VITALS: BP 144/71; PULSE 78; TEMP 36.8; O2SAT 90
--- NOTE | 2025-09-11 21:22 | XR_ITS ---
[facility] [place] [id number] Patient Name: BAILEE TRAORE MRN: [id number] date: 1945 Sex: M Assigned Patient Location: [place] Current Patient Location: [place] Accession/Order Number: [id number] Exam Date: 09/11/2025 23:59 Report Date: 09/12/2025 08:00 At the request of: RADHA WALKER DO Procedure: XR femur LT 2V LEFT FEMUR-2 views COMPARISON: Left hip 09/11/2025 CLINICAL DATA: Follow-up proximal femur fracture. AP and crosstable lateral views were attempted. There is osteopenia. There is a comminuted intertrochanteric hip fracture with displacement and varus positioning similar to the prior. The remainder of the femur appears grossly intact within limits of positioning toward the knee where there is rotation. No definite dislocation is noted. There is some degenerative change at the hip and knee. There is no significant soft tissue swelling. There is prominent atherosclerotic plaque. XR/XR femur LT 2V IMPRESSION: OSTEOPENIA AND MILD DEGENERATIVE CHANGES. COMMINUTED DISPLACED PROXIMAL FEMUR FRACTURE WITH VARUS POSITIONING, SIMILAR TO THE PRIOR. Impression dictated by: Eleanor Bravo M.D. 09/12/2025 8:00 AM Dictation Location: [place] [address] Electronically authenticated by: [id number] Date: 09/12/2025 08:00
[2025-09-11 21:24] LABS: Glucose Urine UA NEGATIVE (NEGATIVE)
--- NOTE | 2025-09-11 21:25 | PM.ORCN ---
History of Present Illness HPI Consult date: 09/11/25 Chief complaint: LT HIP FRACTURE Narrative: Alex is an 80-year-old male who is seen in the emergency department after mechanical fall. He was found to have a comminuted proximal femur fracture. Patient ambulates with a walker at baseline. He does live alone. He denies any new numbness or tingling in the leg. Denies any back pain. Denies any pain elsewhere in his extremities. Review of Systems ROS Status of ROS 10 or more systems reviewed and unremarkable except as noted in history and below [facility] Medical History Other reduced mobility ?Z74.09 - Other reduced mobility (ICD-10) Edema, unspecified ?R60.9 - Edema, unspecified (ICD-10) Disorder of the skin and subcutaneous tissue, unspecified ?L98.9 - Disorder of the skin and subcutaneous tissue, unspecified (ICD-10) Unspecified convulsions ?R56.9 - Unspecified convulsions (ICD-10) Disorientation, unspecified ?R41.0 - Disorientation, unspecified (ICD-10) Weakness ?R53.1 - Weakness (ICD-10) Retention of urine, unspecified ?R33.9 - Retention of urine, unspecified (ICD-10) Constipation ?K59.00 - Constipation, unspecified (ICD-10) GERD (gastroesophageal reflux disease) ?K21.9 - Gastro-esophageal reflux disease without esophagitis (ICD-10) Dysphagia ?R13.10 - Dysphagia, unspecified (ICD-10) Hypothyroid ?E03.9 - Hypothyroidism, unspecified (ICD-10) Hyperlipidemia ?E78.5 - Hyperlipidemia, unspecified (ICD-10) Unspecified atrial fibrillation ?I48.91 - Unspecified atrial fibrillation (ICD-10) 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 (ICD-10) Other seizures ?G40.89 - Other seizures (ICD-10) 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 ?I66.01 - 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 (ICD-10) Malignant neoplasm of frontal lobe ?C71.1 - Malignant neoplasm of frontal lobe (ICD-10) Encephalitis and encephalomyelitis, unspecified ?G04.90 - Encephalitis and encephalomyelitis, unspecified (ICD-10) Interstitial pulmonary disease, unspecified ?J84.9 - Interstitial pulmonary disease, unspecified (ICD-10) Disorder of brain, unspecified ?G93.9 - Disorder of brain, unspecified (ICD-10) Social History Highest level of school completed/degree received: 12th grade, no diploma Little interest or pleasure in doing things: not at all Feeling down, depressed, or hopeless: not at all Meds Home Medications and Allergies Home Medications ?Medication ?Instructions ?Recorded ?Confirmed ?Type acetaminophen 500 mg tablet 1,000 mg PO Q8H PRN fever or pain 09/11/25 09/11/25 History (Tylenol Extra Strength) albuterol sulfate 2.5 mg/3 mL 2.5 mg inhalation Q6H PRN 09/11/25 09/12/25 History (0.083 %) solution for nebulization shortness of breath or wheezing ammonium lactate 12 % lotion 1 applic topical TID PRN dry skin 09/11/25 09/11/25 History aspirin 81 mg chewable tablet 81 mg PO DAILY 09/11/25 09/11/25 History atorvastatin 80 mg tablet 80 mg PO .QHS 09/11/25 09/12/25 History budesonide-formoterol HFA 160 2 inh inhalation Q12H 09/11/25 09/11/25 History mcg-4.5 mcg/actuation aerosol inhaler (Symbicort) bupropion HCl 150 mg 24 hr tablet, 150 mg PO DAILY 09/11/25 09/11/25 History extended release dextromethorphan-guaifenesin 10 10 ml PO Q6H PRN cough 09/11/25 09/11/25 History mg-100 mg/5 mL oral syrup (Antitussive DM) escitalopram oxalate 10 mg tablet 10 mg PO .QHS 09/11/25 09/12/25 History fluticasone 232 mcg-salmeterol 14 1 inh inhalation Q12H 09/11/25 09/11/25 History mcg/actuation breath activated powdr ipratropium 0.5 mg-albuterol 3 mg 3 ml inhalation Q8H 09/11/25 09/11/25 History (2.5 mg base)/3 mL nebulization soln levetiracetam 1,000 mg tablet 1,000 mg PO Q12H 09/11/25 09/11/25 History levothyroxine 100 mcg tablet 100 mcg PO .ACB 09/11/25 09/12/25 History lisinopril 20 mg tablet 20 mg PO DAILY 09/11/25 09/11/25 History metoprolol succinate 50 mg 50 mg PO DAILY 09/11/25 09/11/25 History tablet,extended release 24 hr ondansetron 4 mg disintegrating 4 mg translingual Q6H PRN nausea 09/11/25 09/11/25 History tablet and vomiting pantoprazole 40 mg tablet,delayed 40 mg PO .QHS 09/11/25 09/12/25 History release polyethylene glycol 3350 17 gram 17 g PO BID 09/11/25 09/12/25 History oral powder packet (Miralax) tamsulosin 0.4 mg capsule 0.4 mg PO DAILY 09/11/25 09/12/25 History Allergies Allergy/AdvReac Type Severity Reaction Status Date / Time No Known Drug Allergies Allergy Verified 09/11/25 13:08 Exam Narrative Exam Narrative: Examination of the left hip shows no significant swelling, erythema, ecchymosis. Tenderness to palpation diffusely in the left hip. Positive logroll, heel strike. Pain with diffuse motion of the left hip. No tenderness around the distal femur or knee. Intact strength ankle dorsiflexion/plantarflexion, FHL, EHL. Sensation intact light touch L4-S1. DP and PT pulses palpable. Secondary skeletal survey negative. Constitutional Vital Signs, click to edit/add: Last Vital Signs Temp 98.2 F 09/11/25 19:46 Pulse 78 09/11/25 19:46 Resp 18 09/11/25 19:46 BP 144/71 H 09/11/25 19:46 Pulse Ox 90 L 09/11/25 19:46 O2 Del Method Room Air 09/11/25 19:46 Results Labs Labs: Abnormal lab results 09/11/25 Range/Units 13:38 RBC 4.28 L (4.70-6.10) 10^6/uL Hgb 12.9 L (14.0-18.0) g/dL Hct 38.1 L (42.0-54.0) % MPV 9.0 L (9.5-13.5) fL Neut % (Auto) 80.8 H (43.0-75.0) % Lymph % (Auto) 9.0 L (20.5-60.0) % Neut # (Auto) 7.8 H (1.4-6.5) 10^3/uL Lymph # (Auto) 0.9 L (1.2-3.8) 10^3/uL Abs Immat Gran (auto) 0.04 H (0.00-0.03) 10^3/uL Sodium 132 L (136-145) mmol/L Glucose 113 H (74-106) mg/dL Alkaline Phosphatase 127 H (46-116) U/L Albumin 3.3 L (3.4-5.0) g/dL H & H 09/11/25 Range/Units 13:38 Hgb 12.9 L (14.0-18.0) g/dL Hct 38.1 L (42.0-54.0) % All other labs normal. Diagnostic results Hip x-ray: image reviewed (2 view radiographs of the left femur and AP pelvis obtained in the hospital 09/11/2025 personally interpreted by me show comminuted subtrochanteric hip fracture.) Assessment and Plan Assessment and Plan (1) Fall: (2) Closed fracture of left hip: Plan Plan initially was OR , 09/12/2025 however patient was not medically cleared and currently in heart failure. We will transfer him to [facility] for surgical intervention. Transfer when medically stable.
[2025-09-11 21:28] LABS: Urine Culture Indicated YES-FRMC
[2025-09-11 21:31] LABS: Cast Seen? NONE SEEN #/LPF (NONE SEEN); Crystals Seen? None Seen #/HPF (None Seen)
[2025-09-11] MEDS: HYDROCODONE/ACET 5-325 MG TABLET 1 TAB PO (21:48)
[2025-09-11] MEDS: LEVETIRACETAM 500 MG TABLET 1000 MG PO (21:49)
[2025-09-11] MEDS: CYCLOBENZAPRINE HCL 10 MG TABLET PO (21:49)
[2025-09-11 22:19] VITALS: PULSE 78; O2SAT 92
[2025-09-11] MEDS: IPRATROPIUM/ALBUTEROL SULFATE 3 ML AMPUL.NEB IH (22:19)
[2025-09-11] MEDS: BUDESONIDE 0.5 MG/2 ML AMPULE NEB IH (22:19)
[2025-09-11 23:35] VITALS: BP 109/66; PULSE 78; TEMP 36.9; O2SAT 86
[2025-09-12] VITALS (8 sets, daily range): BP systolic 101–116; BP diastolic 55–70; PULSE 74–78; TEMP 36.4–36.8; O2SAT 84–95
--- NOTE | 2025-09-12 01:30 | PC.NURSE ---
cloudy with a foul smell
[2025-09-12 06:20] LABS: Hematocrit 32.3 % (42.0-54.0); Hemoglobin 11.0 g/dL (14.0-18.0); Immature Granulocytes Abs Auto 0.04 10^3/uL (0.00-0.03); Immature Granulocytes Pct Auto 0.4 % (0.0-0.5); Lymphocytes Absolute Auto 1.5 10^3/uL (1.2-3.8); Mean Corpuscular HGB Conc 34.1 g/dL (29.9-35.2); Mean Corpuscular Hemoglobin 30.0 pg (25.9-34.0); Mean Corpuscular Volume 88.0 fL (80.0-94.0); Platelet Count 175 10^3/uL (150-450); Red Blood Count 3.67 10^6/uL (4.70-6.10); White Blood Count 9.7 10^3/uL (4.0-11.0)
[2025-09-12 06:36] LABS: Anion Gap 13.6; Blood Urea Nitrogen 25.0 mg/dL (7.0-18.0); Calcium 8.4 mg/dL (8.5-10.1); Carbon Dioxide 24.7 mmol/L (21.0-32.0); Chloride 98 mmol/L (98-107); Estimated GFR (African America >60 (>=60 mL/min/1.73m^2); Estimated GFR (Non-African Ame >60 (>=60 mL/min/1.73m^2); Glucose 125 mg/dL (74-106); Potassium 4.3 mmol/L (3.5-5.1); Sodium 132 mmol/L (136-145)
--- NOTE | 2025-09-12 07:51 | PC.NURSE ---
Applied 15lbs traction to L leg. Patient tolerated well, MSP intact post application.
[2025-09-12] MEDS: BUDESONIDE 0.5 MG/2 ML AMPULE NEB IH (08:52)
[2025-09-12] MEDS: IPRATROPIUM/ALBUTEROL SULFATE 3 ML AMPUL.NEB IH ×2 (08:52→15:55)
--- NOTE | 2025-09-12 09:00 | CM.NOTE ---
Rounds made with Dr. Mauricio, discussed with pt plan of care and need for OR today. Pt verbalizes understanding and Orthopedic surgeon will see pt this AM.
[2025-09-12] MEDS: MORPHINE SULFATE 2 MG/ML SYRINGE IV (09:07)
--- NOTE | 2025-09-12 09:32 | SWNOTE1 ---
DONNA called [facility] and spoke to Tara. 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 DONNA advised he did fracture his hip and is going to surgery today. Pt is a precert to return skilled and will likely need skilled at discharge. DONNA to speak with pt or family to confirm they want him to go to [place] for rehab.
--- NOTE | 2025-09-12 10:21 | XR_ITS ---
[facility] [place] [id number] Patient Name: BAILEE TRAORE MRN: [id number] date: 1945 Sex: M Assigned Patient Location: [place] Current Patient Location: [place] Accession/Order Number: [id number] Exam Date: 09/12/2025 10:35 Report Date: 09/12/2025 10:47 At the request of: AUGIE RENAE MD Procedure: XR chest 1V Single view chest: CLINICAL HISTORY: cough COMPARISON: None FINDINGS: Heart normal in size. There appears be diffuse fibrotic changes involving the lungs with likely right middle lobe airspace disease. No pneumothorax or free air. XR/XR chest 1V IMPRESSION: DIFFUSE FIBROTIC CHANGES INVOLVING THE LUNGS WITH WHAT APPEARS TO BE RIGHT MIDDLE LOBE AIRSPACE DISEASE. FOLLOW-UP IS RECOMMENDED TO ENSURE RESOLUTION. Impression dictated by: Omkar Combs Jr., D.O. 09/12/2025 10:47 AM Dictation Location: [place] [address] Electronically authenticated by: [id number] Y Date: 09/12/2025 10:47
--- NOTE | 2025-09-12 10:30 | CM.NOTE ---
CM received update from RN that anesthesia cancelled pt's procedure and pt will transfer to [facility] for surgical procedure.
[2025-09-12] MEDS: BUPROPION HCL 150 MG XL TABLET 24H PO (10:55)
[2025-09-12] MEDS: LISINOPRIL 20 MG TABLET PO (10:55)
[2025-09-12] MEDS: ESCITALOPRAM 10 MG TABLET PO (10:56)
[2025-09-12] MEDS: LEVETIRACETAM 500 MG TABLET 1000 MG PO (10:56)
[2025-09-12] MEDS: METOPROLOL SUCCINATE 50 MG TAB.ER.24H PO (10:56)
--- NOTE | 2025-09-12 11:40 | SWNOTE1 ---
Important Message from Medicare reviewed and discussed with patient. Pt. verbalized understanding and signed the form. Original given to patient and copy placed in patient?s chart.
--- NOTE | 2025-09-12 11:40 | SWNOTE1 ---
DONNA discussed with nurse in [facility] that the plan is now for pt to transfer to [facility] to have surgery there. DONNA updated Ne at the [place].
[2025-09-12] MEDS: HYDROCODONE/ACET 5-325 MG TABLET 1 TAB PO (12:07)
[2025-09-12] MEDS: CYCLOBENZAPRINE HCL 10 MG TABLET PO (12:08)
--- NOTE | 2025-09-12 12:14 | CM.NOTE ---
Called to imitate transfer of pt to [facility] for L hip fx and need for OR. [facility] will have hospitalist reach out to Dr. Mauricio and call back with bed assignment.
--- NOTE | 2025-09-12 12:25 | P.DS_ITS ---
DS: Providers Provider Date of admission: 09/11/25 16:41 Primary care physician: GRICEL COPE DO Consults: 09/11/25 16:16 Consult to Orthopedics Routine Consulting Provider: Drake Saeed Reason for consultation: left hip fx DS: Diagnosis Discharge Diagnosis (1) Fall: (2) Closed fracture of left hip: Plan as above DS: Summary Hospital Course Hospital Course: Patient is an 80 years old male with history of hypertension, hyperlipidemia and history of seizure disorder, by the EMS to the ER after he tripped and fell in the [place]. Pt reports that he was standing and trying to put something on his night stand and fell. Denies hitting his head. Pt denies syncope or LOC. Denies chest pain, SOB, dizziness or lightheadedness. During hospital course, patient noted with positive UA, started on IV Rocephin for UTI. Required some pains meds for his left hip pain. Remained overall hemodynamically stable. Noted last evening with oxygen sat down to 86% placed on 2 L NC. CXR done today showing fibrotic changes. clinically no evidence of pneumonia at this time, pt feels comfortable denies cough or SOB. EKG NSR. Echo report was obtained from previous records. Echo showed EF 50-55%, Normal diastolic function. Patient at [facility] note interstitial lung disease , he did use oxygen in the past, he is not the best historian to confirm if uses oxygen chronically. While getting pre op evaluation. pt was evaluated by anaesthesia team here at [facility] and do not feel comfortable keeping the patient here for the proposed surgery. For which recommended to be transferred to [facility] with orthopedic service there. I discussed the case with [facility] team, Patient has been accepted by hosptalist team Dr. Adam with orthopedic consultation. Patient in agreement with this plan. Time Spent with Patient Time attestation: Total time spent providing and/or coordinating discharge services: Time spent: greater than 30 minutes Exam Narrative Exam Narrative: General: Well-appearing and in no apparent distress. Skin: Warm, dry, no pallor noted. No rash. Head: Normocephalic, atraumatic. Neck: Supple, non-tender. Cardiovascular: Regular Rate and Rhythm without murmur, gallop or rub. Respiratory: No accessory muscle use or respiratory distress. slightly diminished b/l, no wheezes. Chest Wall: no tenderness LEs: Left LE shortening, externally rotated. tender over left hip. GI: Abdomen is soft, non-distended. Normal bowel sounds. No tenderness to palpation. No rebound, guarding, or rigidity noted. Neurological: A&O x4. No obvious new focal deficit. Constitutional Vital Signs, click to edit/add: Last Vital Signs Temp 97.6 F 09/12/25 12:00 Pulse 76 09/12/25 12:00 Resp 16 09/12/25 12:00 BP 116/70 09/12/25 12:00 Pulse Ox 92 L 09/12/25 12:00 O2 Del Method Nasal Cannula 09/12/25 12:00 O2 Flow Rate 2 09/12/25 12:00 DS: Data Data Completed and Pending Labs on day of discharge: Labs from last 24 hours 09/12/25 09/11/25 09/11/25 06:07 21:10 13:38 WBC 9.7 9.6 RBC 3.67 L 4.28 L Hgb 11.0 L 12.9 L Hct 32.3 L 38.1 L MCV 88.0 89.0 MCH 30.0 30.1 MCHC 34.1 33.9 RDW 13.5 13.5 Plt Count 175 189 MPV 9.4 L 9.0 L Neut % (Auto) 72.6 80.8 H Lymph % (Auto) 15.9 L 9.0 L [place] % (Auto) 9.5 7.0 Eos % (Auto) 1.1 2.1 Baso % (Auto) 0.5 0.7 Neut # (Auto) 7.0 H 7.8 H Lymph # (Auto) 1.5 0.9 L [place] # (Auto) 0.9 H 0.7 Eos # (Auto) 0.1 0.2 Baso # (Auto) 0.1 0.1 Abs Immat Gran (auto) 0.04 H 0.04 H Imm/Tot Granulo (auto) 0.4 0.4 Sodium 132 L 132 L Potassium 4.3 4.4 Chloride 98 99 Carbon Dioxide 24.7 25.4 Anion Gap 13.6 12.0 BUN 25.0 H 14.0 Creatinine 1.05 0.87 Est GFR ( Amer) >60 >60 Est GFR (Non-Af Amer) >60 >60 BUN/Creatinine Ratio 23.8 16.1 Glucose 125 H 113 H Calcium 8.4 L 8.7 Total Bilirubin 0.7 AST 26 ALT 30 Alkaline Phosphatase 127 H Total Protein 7.7 Albumin 3.3 L Globulin 4.4 Albumin/Globulin Ratio 0.8 Urine Color Lt. yellow Urine Clarity Cloudy A Urine pH 7.0 Ur Specific [place] 1.015 Urine Protein Trace Urine Glucose (UA) Negative Urine Ketones Negative Urine Occult Blood Trace-i Urine Nitrite Negative Urine Bilirubin Negative Urine Urobilinogen 2.0 A Ur Leukocyte Esterase Large A Urine RBC 2-5 A Urine WBC 50-75 A Ur Squamous Epith Cells Rare Urine Crystals None seen Urine Bacteria Large A Urine Casts None seen Urine Mucus None seen Ur Culture Indicated? Yes-[facility] [place] Preliminary micro results at discharge 09/11/25 21:10 Urine Culture - Preliminary Urine,Clean Catch Pending - Specimen sent to [facility] Discharge Plan Discharge Disposition: [facility]
[2025-09-12] MEDS: 0.9 % SODIUM CHLORIDE 250 ML 10 ML IV (14:16)
== END 2025-09-12 18:05 | disposition short-term general hospital (02) | DRG 536 ==
LOC: ER 15:46 → MS 16:51
PROVIDERS: Admitting Provider Internal Medicine; Emergency Provider Emergency Medicine; PCP Family Medicine; Visit Provider Internal Medicine
DX: S72.22XA Displaced subtrochanteric fracture of left femur, initial encounter for closed fracture (principal); N39.0 Urinary tract infection, site not specified; J84.9 Interstitial pulmonary disease, unspecified; W01.0XXA Fall on same level from slipping, tripping and stumbling without subsequent striking against object, initial encounter; Y93.9 Activity, unspecified; Y92.122 Bedroom in nursing home as the place of occurrence of the external cause; I25.10 Atherosclerotic heart disease of native coronary artery without angina pectoris; Z95.5 Presence of coronary angioplasty implant and graft; E78.5 Hyperlipidemia, unspecified; G40.909 Epilepsy, unspecified, not intractable, without status epilepticus; I11.0 Hypertensive heart disease with heart failure; I50.9 Heart failure, unspecified; Z79.82 Long term (current) use of aspirin; Z79.899 Other long term (current) drug therapy; K21.9 Gastro-esophageal reflux disease without esophagitis; E03.9 Hypothyroidism, unspecified; Z79.890 Hormone replacement therapy; I48.91 Unspecified atrial fibrillation; Z85.841 Personal history of malignant neoplasm of brain; B96.20 Unspecified Escherichia coli [E. coli] as the cause of diseases classified elsewhere
CPT/HCPCS: 36415; 70450; 71045; 72125; 73502; 73552; 76376; 80048; 80053; 81001; 85025; 87086; 87088; 87186; 93005; 94640; 94761; 96374; 99285; J0696; J1885; J2270; J2405